=== PATIENT | male | born 1960 | race Caucasian/White ===

== ENCOUNTER 2024-08-14 17:53 | Inpatient (IN) ==
[2024-08-14 19:00] LABS: Base Excess VBG -7.3 mEq/L; HCO3 VBG 17 mmol/L; Oxygen Saturation VBG 71.8 %; PCO2 VBG 31 mmHg (38-50); PO2 VBG 39 mmHg; pH VBG 7.35 (7.36-7.41)
[2024-08-14 19:07] LABS: Basophils # (auto) 0.07 K/uL (0.00-0.20); Basophils % (auto) 0.6 %; Eosinophils # (auto) 0.35 K/uL (0.00-0.50); Eosinophils % (auto) 3.2 %; Hemoglobin 9.1 g/dl (14.0-18.0); Immature Granulocytes # (auto) 0.13 K/uL (0.01-0.20); Immature Granulocytes % (auto) 1.2 %; Lymphocytes # (auto) 2.85 K/uL (1.20-3.40); Lymphocytes % (auto) 26.5 %; Mean Corpuscular Hemoglobin 29.3 pg (25.0-34.0); Mean Corpuscular Hgb Conc 32.5 g/dL (32.0-36.0); Mean Platelet Volume 9.7 fL (9.4-12.4); Monocytes % (auto) 3.7 %; Neutrophils # (auto) 6.97 K/uL (1.40-6.50); Neutrophils % (auto) 64.8 %; Platelet Count 481 K/uL (130-400); RDW Coefficient of Variation 15.2 % (11.5-14.5); RDW Standard Deviation 49.6 fL (36.4-46.3); Red Blood Count 3.11 M/uL (4.70-6.10); White Blood Count 10.77 K/ul (4.8-10.8)
--- NOTE | 2024-08-14 19:08 | XRay Report ---
Chest radiograph, one view History: Chest pain Comparison: None Findings: Single AP view of the chest performed. No focal consolidation or pleural effusion. No pneumothorax. Right upper extremity PICC tip is at the superior atrial caval junction. Elevated right hemidiaphragm. The cardiomediastinal silhouette is within normal limits. Normal pulmonary vascularity. No evidence for lymphadenopathy. No visualized bony or soft tissue abnormality. Impression: Right upper extremity PICC as above. Otherwise no acute process. Electronically signed by Quintin Kapadia 08-14-2024 7:07 PM
[2024-08-14 19:09] LABS: INR 1.6 (0.9-1.1); Prothrombin Time 16.7 Seconds (9.0-12.0)
[2024-08-14 19:13] LABS: Albumin Globulin Ratio 0.6 (0.9-2); Albumin Level 2.2 gm/dl (3.4-5.0); BUN Creatinine Ratio 5.8 (10-20); Bilirubin,Total 2.1 mg/dl (0.2-1.0); Creatinine Clr Calc Pharmacy 19.5 ml/min; Globulin 3.7 gm/dl (2.5-4.0); Potassium 4.3 mmol/L (3.5-5.1); Total Protein 5.9 gm/dl (6.0-8.3)
[2024-08-14 19:46] LABS: Adenovirus PCR Not Detected (NotDetected); Bordetella parapertussis PCR Not Detected (NotDetected); Bordetella pertussis PCR Not Detected (NotDetected); Chlamydia pneumoniae PCR Not Detected (NotDetected); Coronavirus 229E PCR Not Detected (NotDetected); Coronavirus CoV-2 (COVID19)PCR Not Detected (NotDetected); Coronavirus HKU1 PCR Not Detected (NotDetected); Coronavirus NL63 PCR Not Detected (NotDetected); Coronavirus OC43PCR Not Detected (NotDetected); Human Metapneumovirus PCR Not Detected (NotDetected); Influenza A PCR Not Detected (NotDetected); Influenza B PCR Not Detected (NotDetected); Mycoplasma pneumoniae PCR Not Detected (NotDetected); Parainfluenza Virus 1 PCR Not Detected (NotDetected); Parainfluenza Virus 2 PCR Not Detected (NotDetected); Parainfluenza Virus 3 PCR Not Detected (NotDetected); Parainfluenza Virus 4 PCR Not Detected (NotDetected); Respiratory Syncytial VirusPCR Not Detected (NotDetected); Rhinovirus/Enterovirus PCR Not Detected (NotDetected)
[2024-08-14] MEDS: ACETAMINOPHEN 1,000 MG/100 ML VIAL IV STA (20:26)
[2024-08-14] MEDS: SODIUM CHLORIDE 0.9% 1,000 ML IV ONE ×2 (20:26→21:44)
[2024-08-14] MEDS: SODIUM CHLORIDE 0.9% 500 ML IV ONE (20:31)
--- NOTE | 2024-08-14 20:32 | Emergency Department Note ---
Impression & Plan Fever, JUANA (acute kidney injury), Cellulitis of right lower extremity, Diabetic foot ulcer ED Provider Note CHIEF COMPLAINT: Fever, on IV antibiotics HISTORY OF PRESENT ILLNESS: This 63-year-old male patient past medical history of hypertension, hyperlipidemia, cellulitis of the right foot on IV vancomycin at the long-term, diabetic ulceration status post amputation, type 2 diabetes presents to the emergency department from the [facility] with complaints of fever and altered mental status. Patient was recently admitted to the [facility] and diagnosed with cellulitis. He apparently was also treated for flu at that time. Wound culture revealed MSSA however patient had a reaction to IV Ancef in the hospital and was switched to IV vancomycin. There is no reported fall however much of the history is taken from nursing report through EMS. REVIEW OF SYSTEMS: A review of systems was performed with positives and pertinent negatives listed in the history of present illness. 10 systems were reviewed and are otherwise negative. ALLERGIES: see below MEDICATIONS: see below PMH: see below SOCIAL HISTORY: see below DDx: Sepsis, COVID, flu, UTI, cellulitis, osteomyelitis, metabolic derangement, pneumonia among others. PHYSICAL EXAM: Vital signs reviewed. hypotensive General: chronically ill-appearing 63-year-old male, in no significant distress. HEENT: No scleral icterus, PERRLA, neck supple. moist mucous membranes Cardiovascular: tachycardic but regular Pulmonary: Clear to auscultation bilaterally, normal work of breathing. Abdomen: Soft, nontender, nondistended, positive bowel sounds. Musculoskeletal: Atraumatic, no peripheral edema. Neurologic: Patient awake alert and oriented x 3, speech is clear Skin: Warm, dry, no rash . Small ulcerated area to the bottom of the right foot with minimal drainage, dressing was removed. EMERGENCY DEPARTMENT COURSE/MDM: this patient was evaluated and appeared to be in no significant distress. IV access was obtained and laboratory work was drawn. The patient was placed on the shift production associate and noted to be in a normal sinus rhythm. He is also febrile on exam. Patient was given 1 g of IV acetaminophen, hydrated with normal saline solution. Laboratory work was obtained and reveals a creatinine of 4.45. Records from his recent admission to [facility] were obtained and revealed a normal creatinine of 1.0 on 08/09/24 and on 08/10/2024 at 1.6. outpatient laboratory work was performed yesterday and is in our system at 4.54. Blood cultures were obtained. Patient was hydrated with normal saline solution, total of 2.5 L. UA is largely reassuring as is a Sarmiento catheter to be placed. Respiratory BioFire panel is negative. Patient's lactate is 1.6, WBC is normal however procalcitonin is greater than 100 and ESR is 93. Additional coverage to the IV vancomycin is felt to be necessary, the pharmacist was consulted and we have landed on cefepime. Patient did have a reaction to IV Ancef with his most recent hospitalization. Nursing staff was advised to monitor for allergic reaction closely however IV Zosyn was felt to be the wrong choice due to his acute kidney injury. Osteomyelitis had been ruled out on his hospitalization to [facility] via MRI however certainly there is no obvious source of infection at this time. Dr. Kurtz of the hospitalist service has agreed to evaluate the patient for admission and further management. MONITORING: An order for cardiac monitoring was placed and the patient is noted to be in a normal sinus rhythm at 87 beats per minute. RADIOLOGY: chest x-ray to my interpretation reveals the right sided PICC line, no focal lung consolidation or failure. EKG: EKG to my interpretation reveals normal sinus rhythm at 80 bpm, normal ST segments, QTc of 442. No PVC, no PAC DISPOSITION: admission Past Med/Surg History Problem List (Updated 08/14/24 @ 21:39 by Jennifer Puentes MD) Diabetic foot ulcer (Acute) Cellulitis of right lower extremity (Acute) JUANA (acute kidney injury) (Acute) Fever (Acute) Social History Smoking Status: Unknown if ever smoked Preferred Language: [place] Allergies Allergies Allergy/AdvReac Type Severity Reaction Status Date / Time ancef Allergy Intermediate Rash Uncoded 08/14/24 20:14 Home Meds Home Medications Medication Instructions Recorded Confirmed Lactobacillus acidophilus 10 10,000 mmu cells PO DAILY 08/14/24 08/14/24 billion cell capsule (Probiotic) atenolol 100 mg tablet 100 mg PO DAILY 08/14/24 08/14/24 atorvastatin 20 mg tablet 20 mg PO DAILY 08/14/24 08/14/24 bisacodyl 10 mg rectal suppository 10 mg OR DAILY PRN Constipation 08/14/24 08/14/24 (Dulcolax (bisacodyl)) cyanocobalamin (vitamin B-12) 500 500 mcg PO DAILY 08/14/24 08/14/24 mcg tablet multivitamin with minerals 1 tab PO DAILY 08/14/24 08/14/24 ondansetron 4 mg disintegrating 4 mg PO Q8H PRN Nausea And Vomiting 08/14/24 08/14/24 tablet oxycodone 5 mg tablet 5 mg PO Q6H PRN Severe Pain (Scale 08/14/24 08/14/24 Score 7-10) Results & Data (ED) Vital Signs Vital Signs - 24 hr 08/14/24 18:09 08/14/24 18:11 08/14/24 19:15 Temperature 38.3 C H Temperature Source Oral Pulse Rate 89 87 87 Pulse Rate from SpO2 Sensor Respiratory Rate 20 24 Blood Pressure 100/67 97/65 L Blood Pressure Mean 78 75 Blood Pressure Position Lying Pulse Oximetry 94 93 Oxygen Delivery Method Room Air Sepsis Recent Fever Within 48 Hours Yes Sepsis New/Unexplained Change in Mental Status No Sepsis Action Taken by Nursing No Action Required 08/14/24 19:51 08/14/24 19:59 08/14/24 20:48 Temperature 38.8 C H Temperature Source Oral Pulse Rate 89 87 Pulse Rate from SpO2 Sensor 87 Respiratory Rate 25 H 22 Blood Pressure 122/67 98/68 L Blood Pressure Mean 85 78 Blood Pressure Position Pulse Oximetry 93 95 Oxygen Delivery Method Sepsis Recent Fever Within 48 Hours Sepsis New/Unexplained Change in Mental Status Sepsis Action Taken by Nursing 08/14/24 21:00 Temperature Temperature Source Pulse Rate 103 H Pulse Rate from SpO2 Sensor 104 H Respiratory Rate 19 Blood Pressure 98/50 L Blood Pressure Mean 66 Blood Pressure Position Pulse Oximetry 96 Oxygen Delivery Method Sepsis Recent Fever Within 48 Hours Sepsis New/Unexplained Change in Mental Status Sepsis Action Taken by [facility] Medications Current Medication List: was personally reviewed by me Laboratory Data Attestation: I reviewed the patient's lab results. 08/14/24 18:00 08/14/24 18:00 Lab Results 08/14/24 08/14/24 08/14/24 Range/Units 18:00 20:14 20:58 WBC 10.77 (4.8-10.8) K/ul RBC 3.11 L (4.70-6.10) M/uL Hgb 9.1 L (14.0-18.0) g/dl Hct 28.0 L (42.0-52.0) % MCV 90.0 (80.0-100.0) fL MCH 29.3 (25.0-34.0) pg MCHC 32.5 (32.0-36.0) g/dL RDW Std Deviation 49.6 H (36.4-46.3) fL RDW Coeff of Eladio 15.2 H (11.5-14.5) % Plt Count 481 H (130-400) K/uL MPV 9.7 (9.4-12.4) fL Immature Gran % (Auto) 1.2 % Neut % (Auto) 64.8 % Lymph % (Auto) 26.5 % Iron % (Auto) 3.7 % Eos % (Auto) 3.2 % Baso % (Auto) 0.6 % Neut # (Auto) 6.97 H (1.40-6.50) K/uL Lymph # (Auto) 2.85 (1.20-3.40) K/uL Iron # (Auto) 0.40 (0.11-0.59) K/uL Eos # (Auto) 0.35 (0.00-0.50) K/uL Baso # (Auto) 0.07 (0.00-0.20) K/uL Immature Gran # (Auto) 0.13 (0.01-0.20) K/uL ESR 93 H (0-20) mm/hr PT 16.7 H (9.0-12.0) Seconds INR 1.6 H (0.9-1.1) VBG pH 7.35 L (7.36-7.41) VBG pCO2 31 L (38-50) mmHg VBG pO2 39 mmHg VBG HCO3 17 mmol/L VBG O2 Saturation 71.8 % VBG Base Excess -7.3 mEq/L Sodium 130 L (136-145) mmol/L Potassium 4.3 (3.5-5.1) mmol/L Chloride 103 (98-107) mmol/L Carbon Dioxide 24 (21-32) mmol/L Anion Gap 3 (3-11) BUN 26 H (6-23) mg/dl Creatinine 4.45 H (0.6-1.4) mg/dl Est Cr Clr Drug Dosing 19.5 ml/min eGFR 13.92 BUN/Creatinine Ratio 5.8 L (10-20) Glucose 66 L (70-99(Fasting)) mg/dl Lactate 1.6 2.0 (0.4-2.0) mmol/L Calcium 8.0 L (8.6-10.3) mg/dl Total Bilirubin 2.1 H (0.2-1.0) mg/dl AST 120 H (13-39) U/L ALT 96 H (7-52) U/L Alkaline Phosphatase 222 H (34-104) U/L Troponin I High Sens 23.0 H (0-20) pg/ml Total Protein 5.9 L (6.0-8.3) gm/dl Albumin 2.2 L (3.4-5.0) gm/dl Globulin 3.7 (2.5-4.0) gm/dl Albumin/Globulin Ratio 0.6 L (0.9-2) Lipase 63 (11-82) U/L Procalcitonin > 100.00 H (0-0.5) ng/ml Urine Color Dark Yellow Urine Appearance Cloudy A (Clear) Urine pH 5.0 (4.5-7.5) Ur Specific [place] 1.018 (1.000-1.030) Urine Protein 1+ H (Negative) Urine Glucose (UA) Negative (Negative) Urine Ketones Trace H (Negative) Urine Blood 1+ H (Negative) Urine Nitrite Negative (Negative) Urine Bilirubin 1+ H (Negative) Urine Urobilinogen Negative (Negative) Ur Leukocyte Esterase Negative (Negative) Adenovirus (PCR) Not Detected (NotDetected) B. pertussis DNA (PCR) Not Detected (NotDetected) B.parapertussis DNA PCR Not Detected (NotDetected) C. pneumoniae DNA (PCR) Not Detected (NotDetected) Coronavirus OC43 (PCR) Not Detected (NotDetected) Coronavirus HKU1 (PCR) Not Detected (NotDetected) Coronavirus 229E (PCR) Not Detected (NotDetected) SARS-CoV-2 (PCR) Not Detected (NotDetected) Coronavirus NL63 (PCR) Not Detected (NotDetected) Human Metapneumovir PCR Not Detected (NotDetected) Influenza Type A (PCR) Not Detected (NotDetected) Influenza Type B (PCR) Not Detected (NotDetected) M. pneumoniae (PCR) Not Detected (NotDetected) Parainfluenza 1 (PCR) Not Detected (NotDetected) Parainfluenza 2 (PCR) Not Detected (NotDetected) Parainfluenza 3 (PCR) Not Detected (NotDetected) Parainfluenza 4 (PCR) Not Detected (NotDetected) RSV (PCR) Not Detected (NotDetected) Entero/Rhino (PCR) Not Detected (NotDetected) Administered Medications Discontinued Medications Sodium Chloride (Nss) 1,000 mls @ 999 mls/hr IV .Q1H1M ONE Stop: 08/14/24 21:02 Last Admin: 08/14/24 20:26 Dose: 999 mls/hr Documented By: KANU Acetaminophen (Ofirmev) 1,000 mg in 100 mls @ 400 mls/hr IV NOW STA Stop: 08/14/24 20:16 Last Infusion: 08/14/24 20:48 Dose: Infused Documented By: Admin: 08/14/24 20:26 Dose: 400 mls/hr Documented By: KANU Sodium Chloride (Nss) 500 mls @ 999 mls/hr IV .Q31M ONE Stop: 08/14/24 20:41 Last Admin: 08/14/24 20:31 Dose: 999 mls/hr Documented By: KANU Cefepime HCl (Maxipime 2000mg) 2,000 mg in 20 mls @ 5 mls/min IV NOW STA; Protocol Stop: 08/14/24 20:21 Last Admin: 08/14/24 20:50 Dose: 5 mls/min Documented By: KANU Imaging Data Radiologist's Impression: Chest X-Ray 08/14/24 18:34 Chest radiograph, one view History: Chest pain Comparison: None Findings: Single AP view of the chest performed. No focal consolidation or pleural effusion. No pneumothorax. Right upper extremity PICC tip is at the superior atrial caval junction. Elevated right hemidiaphragm. The cardiomediastinal silhouette is within normal limits. Normal pulmonary vascularity. No evidence for lymphadenopathy. No visualized bony or soft tissue abnormality. Impression: Right upper extremity PICC as above. Otherwise no acute process. Electronically signed by Quintin Kapadia 08-14-2024 7:07 PM Discharge Plan Visit Data Chief Complaint: Lethargic ED Provider: Jennifer Puentes Discharge Problem: Fever, JUANA (acute kidney injury), Cellulitis of right lower extremity, Diabetic foot ulcer Forms Stand Alone Forms: My [facility] Prescriptions Prescriptions: No Action atorvastatin 20 mg tablet 20 mg PO DAILY atenolol 100 mg tablet 100 mg PO DAILY cyanocobalamin (vitamin B-12) 500 mcg Tablet 500 mcg PO DAILY bisacodyl [Dulcolax (bisacodyl)] 10 mg Suppository 10 mg OR DAILY PRN (Reason: Constipation) multivitamin with minerals Tablet 1 tab PO DAILY ondansetron 4 mg Tablet,Disintegrating 4 mg PO Q8H PRN (Reason: Nausea And Vomiting) oxycodone 5 mg Tablet 5 mg PO Q6H PRN (Reason: Severe Pain (Scale Score 7-10)) Probiotic 10 billion cell Capsule 10,000 mmu cells PO DAILY Referrals Referrals: Liu Benson [Primary Care Provider] -
[2024-08-14] MEDS: CEFEPIME 2000MG 2,000 MG/20 ML SYR IV STA (20:50)
[2024-08-14 21:19] LABS: Appearance Urine Cloudy (Clear); Bilirubin Urine 1+ (Negative); Blood Urine 1+ (Negative); Color Urine Dark Yellow; Epithelial Cell Urine Auto 0-2 /hpf (0-2); Glucose Urine UA Negative (Negative); Ketones Urine Trace (Negative); Leukocyte Esterase Urine Negative (Negative); Nitrite Urine Negative (Negative); Protein Urine 1+ (Negative); Specific Gravity Urine 1.018 (1.000-1.030); Urobilinogen Urine Negative (Negative); WBC Urine Automated 0-5 /hpf (0-5)
[2024-08-14 21:32] LABS: Amorphous Sediment Urine Present (None Prsent)
[2024-08-14 21:33] LABS: Bacteria Urine Automated 2+ (None Seen)
--- NOTE | 2024-08-14 22:17 | History & Physical Report ---
Date of Service August 14, 2024 Assessment & Plan (1) Sepsis: Plan: 63-year-old male with past medical history significant for type 2 diabetes, diabetic ulcer of right midfoot, dyslipidemia, hypophosphatemia, hypertension, history of C. difficile colitis, oral thrush, cellulitis of right leg, abscess of right foot, absent seizures, history of lung cancer, was sent in by [facility] rehab because of confusion and fevers. Patient was in [facility] from 08/02/2024 to 08/11/2024. He was admitted to the [facility] for right foot swelling and rednesss and fevers. And right foot x-ray showed healed fracture through the midshaft of second metatarsal bone with calcified bridging callus. Pes planus. He was admitted for right foot infection. MRI of the foot was negative for osteomyelitis and showed cellulitis and possible abscess. Status post I&D by podiatry at bedside on August 03 with a deep purulence obtained and sent for culture. Status post I&D with podiatry for sepsis on August 06 and probe to bone very favorable and no clear abscess as suggested by CT scan. During hospital stay he was also completed Tamiflu for influenza. ID suggested Ancef until September 17 and to treat as osteomyelitis for MSSA on wound cultures with 6 weeks of IV antibiotics. On August 07 patient had rash thought to be from Ancef. Rash was worsening after second dose of Ancef and patient was having fevers that thought to be lined up from Ancef doses and was thought possible drug fever. And ID recommended IV Vanco via PICC line. Vancomycin dosing goal AUC 400-600 Mg/liter/hour. And patient was discharged to [facility] on 08/11/2024. At [facility] patient was still having fevers and shortness of breath and erythema around his wound ,does not appear to be receding thought to be spreading. [facility] made ID aware. As per the med rec from the [facility] seems patient had Rocephin. And was sent to our ER today because of fever and altered mental status. Patient can tell his name. Knows that he is in the hospital. Could tell his date of . But could not tell current dates. Denies any cough. Denies headache. Denies chest pain. Denies shortness of breath. Denies belly pain. Status post Sarmiento in the ER. Patient seems poor historian at this time. No sacral ulcer seen. Sepsis Bilateral lower extremity cellulitis Right foot diabetic ulcer Recently on [facility] was placed on IV Vanco for 6 weeks until September 17 to treat his osteomyelitis though MRI was negative And abscess was I&D by podiatry at [facility] Will hold IV Vanco as random vanco level 36 and follow levels. Pharmacy consult ER placed on IV cefepime whic hwill be continued with renal dosing ID consult Close monitor JUANA Presented with creatinine of 4.4 Creatinine was 1.6 on 08/12/2024 Prior to that creatinine was normal Will get CT abdomen pelvis Status post Sarmiento in ER Gentle fluids Hold nephrotoxic agents Nephrology consult in a.m Close monitor Confusion Mostly metabolic encephalopathy from above Will get CT head Will monitor Anemia Hemoglobin 9.1 Hemoglobin 's at [facility] Will follow stool for Hemoccult, iron studies , vitamin b12 and folate levels Hypertension Will hold atenolol and lisinopril for sepsis Close monitor Diabetes Hold home medications Sliding scale Monitor Hyperlipidemia On statin History of seizures On Lamictal elevated lft follow ct abd/pelvis seems elevated at [facility] also. Remote history of lung cancer Treated with chemo as per records DVT prophylaxis Heparin subcu Disposition Telemetry Full code. History of Present Illness Chief Complaint: Confusion, JUANA, sepsis Primary Care Provider: Liu Marcelino 63-year-old male with past medical history significant for type 2 diabetes, diabetic ulcer of right midfoot, dyslipidemia, hypophosphatemia, hypertension, history of C. difficile colitis, oral thrush, cellulitis of right leg, abscess of right foot, absent seizures, history of lung cancer, was sent in by [facility] rehab because of confusion and fevers. Patient was in [facility] from 08/02/2024 to 08/11/2024. He was admitted to the [facility] for right foot swelling and rednesss and fevers. And right foot x-ray showed healed fracture through the midshaft of second metatarsal bone with calcified bridging callus. Pes planus. He was admitted for right foot infection. MRI of the foot was negative for osteomyelitis and showed cellulitis and possible abscess. Status post I&D by podiatry at bedside on August 03 with a deep purulence obtained and sent for culture. Status post I&D with podiatry for sepsis on August 06 and probe to bone very favorable and no clear abscess as suggested by CT scan. During hospital stay he was also completed Tamiflu for influenza. ID suggested Ancef until September 17 and to treat as osteomyelitis for MSSA on wound cultures with 6 weeks of IV antibiotics. On August 07 patient had rash thought to be from Ancef. Rash was worsening after second dose of Ancef and patient was having fevers that thought to be lined up from Ancef doses and was thought possible drug fever. And ID recommended IV Vanco via PICC line. Vancomycin dosing goal AUC 400-600 Mg/liter/hour. And patient was discharged to [facility] on 08/11/2024. At [facility] patient was still having fevers and shortness of breath and erythema around his wound ,does not appear to be receding thought to be spreading. [facility] made ID aware. As per the med rec from the [facility] seems patient had Rocephin. And was sent to our ER today because of fever and altered mental status. Patient can tell his name. Knows that he is in the hospital. Could tell his date of . But could not tell current dates. Denies any cough. Denies headache. Denies chest pain. Denies shortness of breath. Denies belly pain. Status post Sarmiento in the ER. Patient seems poor historian at this time. No sacral ulcer seen. Past medical history. As mentioned above. Past surgical history. Left total knee arthroplasty. Left carpal tunnel surgery. Flexible sigmoidoscopy. Cervical spine fusion surgery. Right toe partial amputation. Tonsillectomy. Repair of inguinal hernia. Social history. No smoking. Alcohol rarely. No drug use. Family history. Mother had arthritis. Diabetes. High cholesterol. Cardiac stent. Father had kidney cancer. High cholesterol. Brother has hypertension. Uncle had stomach cancer. Paternal grandfather had bone cancer. Allergies Allergy/AdvReac Type Severity Reaction Status Date / Time cefazolin Allergy Intermediate Rash Verified 08/14/24 23:14 Home Medications Medication Instructions Recorded Confirmed Type Lactobacillus acidophilus 10 10,000 mmu cells PO DAILY 08/14/24 08/14/24 History billion cell capsule (Probiotic) aspirin 81 mg tablet,delayed 81 mg PO DAILY 08/14/24 08/14/24 History release atenolol 100 mg tablet 100 mg PO DAILY 08/14/24 08/14/24 History atorvastatin 20 mg tablet 20 mg PO DAILY 08/14/24 08/14/24 History bisacodyl 10 mg rectal suppository 10 mg CO DAILY PRN Constipation 08/14/24 08/14/24 History (Dulcolax (bisacodyl)) ceftriaxone 1 gram intravenous 1 g IV DAILY 08/14/24 08/14/24 History solution cyanocobalamin (vitamin B-12) 500 500 mcg PO DAILY 08/14/24 08/14/24 History mcg tablet empagliflozin 25 mg tablet 25 mg PO DAILY 08/14/24 08/14/24 History gabapentin 300 mg capsule 600 mg PO HS 08/14/24 08/14/24 History hydroxyzine HCl 10 mg tablet 10 mg PO HS PRN Anxiety 08/14/24 08/14/24 History lamotrigine 100 mg tablet 100 mg PO BID 08/14/24 08/14/24 History (Lamictal) lisinopril 20 mg tablet 20 mg PO DAILY 08/14/24 08/14/24 History metformin 500 mg tablet 500 mg PO BID 08/14/24 08/14/24 History multivitamin with minerals 1 tab PO DAILY 08/14/24 08/14/24 History ondansetron 4 mg disintegrating 4 mg PO Q8H PRN Nausea And Vomiting 08/14/24 08/14/24 History tablet oxycodone 5 mg tablet 5 mg PO Q6H PRN Severe Pain (Scale 08/14/24 08/14/24 History Score 7-10) vancomycin 1,000 mg intravenous 1 g IV UD 08/14/24 08/14/24 History injection Past Med/Surg History Problem List (Updated 08/14/24 @ 22:10 by Pineda Kurtz MD) Sepsis Diabetic foot ulcer (Acute) Cellulitis of right lower extremity (Acute) JUANA (acute kidney injury) (Acute) Fever (Acute) Social History Smoking Status: Never smoker Hx Alcohol Use: No Hx Substance Use: No Preferred Language: Albanian Communication Ability: Effective Galley Cook Required: No Beliefs That Will Affect Care: None Current Living Situation: Personal Care Facility Current Living Situation Comment: Lives at [facility] currently Other Information That Helps Us Care for You: No Feels Safe at Home: Yes Safety Concerns: Feels Safe At This Time Assistive Devices: Denture - Upper and Glasses Review of Systems Review of Systems: Unobtainable due to reduced consciousness Physical Exam Physical Exam: General- Confused Head- atraumatic Eyes- PERRL. ENT- oropharynx dry Neck- supple, no JVD. Lungs- clear to auscultation no wheezing or crackles. Heart- regular rate and rhythm; no murmur, no gallop. Abdomen- normal bowel sounds, soft, nontender, no distension Extremities- b/l lower extremity erythema seen from foot to garcia region more on left side. Open callus seen on plantar aspect of right foot Neuro- alert, oriented x 2; Confused.PERRL, no facial palsy; no dysarthria; obeys simple commands Results & Data Results & Data Vital Signs (Past 12 Hours) Vital Signs Temp Pulse Resp BP Pulse Ox O2 Del Method 08/14/24 21:42 37.2 C 08/14/24 21:00 103 H 19 98/50 L 96 08/14/24 20:48 87 22 98/68 L 95 08/14/24 19:59 38.8 C H 08/14/24 19:51 89 25 H 122/67 93 08/14/24 19:15 87 24 97/65 L 93 08/14/24 18:11 38.3 C H 87 20 100/67 94 Room Air 08/14/24 18:09 89 Diagnostic Findings Laboratory Results WBC 10.77 K/ul (4.8-10.8) 08/14/24 18:00 RBC 3.11 M/uL (4.70-6.10) L 08/14/24 18:00 Hgb 9.1 g/dl (14.0-18.0) L 08/14/24 18:00 Hct 28.0 % (42.0-52.0) L 08/14/24 18:00 MCV 90.0 fL (80.0-100.0) 08/14/24 18:00 MCH 29.3 pg (25.0-34.0) 08/14/24 18:00 MCHC 32.5 g/dL (32.0-36.0) 08/14/24 18:00 RDW Std Deviation 49.6 fL (36.4-46.3) H 08/14/24 18:00 RDW Coeff of Eladio 15.2 % (11.5-14.5) H 08/14/24 18:00 Plt Count 481 K/uL (130-400) H 08/14/24 18:00 MPV 9.7 fL (9.4-12.4) 08/14/24 18:00 Immature Gran % (Auto) 1.2 % 08/14/24 18:00 Neut % (Auto) 64.8 % 08/14/24 18:00 Lymph % (Auto) 26.5 % 08/14/24 18:00 Bartholomew % (Auto) 3.7 % 08/14/24 18:00 Eos % (Auto) 3.2 % 08/14/24 18:00 Baso % (Auto) 0.6 % 08/14/24 18:00 Neut # (Auto) 6.97 K/uL (1.40-6.50) H 08/14/24 18:00 Lymph # (Auto) 2.85 K/uL (1.20-3.40) 08/14/24 18:00 Bartholomew # (Auto) 0.40 K/uL (0.11-0.59) 08/14/24 18:00 Eos # (Auto) 0.35 K/uL (0.00-0.50) 08/14/24 18:00 Baso # (Auto) 0.07 K/uL (0.00-0.20) 08/14/24 18:00 Immature Gran # (Auto) 0.13 K/uL (0.01-0.20) 08/14/24 18:00 ESR 93 mm/hr (0-20) H 08/14/24 18:00 PT 16.7 Seconds (9.0-12.0) H 08/14/24 18:00 INR 1.6 (0.9-1.1) H 08/14/24 18:00 VBG pH 7.35 (7.36-7.41) L 08/14/24 18:00 VBG pCO2 31 mmHg (38-50) L 08/14/24 18:00 VBG pO2 39 mmHg 08/14/24 18:00 VBG HCO3 17 mmol/L 08/14/24 18:00 VBG O2 Saturation 71.8 % 08/14/24 18:00 VBG Base Excess -7.3 mEq/L 08/14/24 18:00 Sodium 130 mmol/L (136-145) L 08/14/24 18:00 Potassium 4.3 mmol/L (3.5-5.1) 08/14/24 18:00 Chloride 103 mmol/L (98-107) 08/14/24 18:00 Carbon Dioxide 24 mmol/L (21-32) 08/14/24 18:00 Anion Gap 3 (3-11) 08/14/24 18:00 BUN 26 mg/dl (6-23) H 08/14/24 18:00 Creatinine 4.45 mg/dl (0.6-1.4) H 08/14/24 18:00 Est Cr Clr Drug Dosing 19.5 ml/min 08/14/24 18:00 eGFR 13.92 08/14/24 18:00 BUN/Creatinine Ratio 5.8 (10-20) L 08/14/24 18:00 Glucose 66 mg/dl (70-99(Fasting)) L 08/14/24 18:00 Lactate 2.0 mmol/L (0.4-2.0) 08/14/24 20:14 Calcium 8.0 mg/dl (8.6-10.3) L 08/14/24 18:00 Total Bilirubin 2.1 mg/dl (0.2-1.0) H 08/14/24 18:00 AST 120 U/L (13-39) H 08/14/24 18:00 ALT 96 U/L (7-52) H 08/14/24 18:00 Alkaline Phosphatase 222 U/L (34-104) H 08/14/24 18:00 Troponin I High Sens 20.9 pg/ml (0-20) H 08/14/24 20:58 Total Protein 5.9 gm/dl (6.0-8.3) L 08/14/24 18:00 Albumin 2.2 gm/dl (3.4-5.0) L 08/14/24 18:00 Globulin 3.7 gm/dl (2.5-4.0) 08/14/24 18:00 Albumin/Globulin Ratio 0.6 (0.9-2) L 08/14/24 18:00 Lipase 63 U/L (11-82) 08/14/24 18:00 Procalcitonin > 100.00 ng/ml (0-0.5) H 08/14/24 18:00 Urine Color Dark Yellow 08/14/24 20:58 Urine Appearance Cloudy (Clear) A 08/14/24 20:58 Urine pH 5.0 (4.5-7.5) 08/14/24 20:58 Ur Specific Dorothy 1.018 (1.000-1.030) 08/14/24 20:58 Urine Protein 1+ (Negative) H 08/14/24 20:58 Urine Glucose (UA) Negative (Negative) 08/14/24:58 Urine Ketones Trace (Negative) H 08/14/24 20:58 Urine Blood 1+ (Negative) H 08/14/24 20:58 Urine Nitrite Negative (Negative) 08/14/24:58 Urine Bilirubin 1+ (Negative) H 08/14/24 20:58 Urine Urobilinogen Negative (Negative) 08/14/24:58 Ur Leukocyte Esterase Negative (Negative) 08/14/24 20:58 Urine WBC (Auto) 0-5 /hpf (0-5) 08/14/24 20:58 Urine RBC (Auto) 6-10 /hpf (0-2) H 08/14/24 20:58 U Hyaline Cast (Auto) 3-5 /lpf (0-2) H 08/14/24 20:58 U Epithel Cells (Auto) 0-2 /hpf (0-2) 08/14/24 20:58 Urine Bacteria (Auto) 2+ (None Seen) H 08/14/24 20:58 Amorphous Sediment Present (None Prsent) A 08/14/24 20:58 Urine Yeast Present (None Prsent) A 08/14/24 20:58 Adenovirus (PCR) Not Detected (NotDetected) 08/14/24 18:00 B. pertussis DNA (PCR) Not Detected (NotDetected) 08/14/24 18:00 B.parapertussis DNA PCR Not Detected (NotDetected) 08/14/24 18:00 C. pneumoniae DNA (PCR) Not Detected (NotDetected) 08/14/24 18:00 Coronavirus OC43 (PCR) Not Detected (NotDetected) 08/14/24 18:00 Coronavirus HKU1 (PCR) Not Detected (NotDetected) 08/14/24 18:00 Coronavirus 229E (PCR) Not Detected (NotDetected) 08/14/24 18:00 SARS-CoV-2 (PCR) Not Detected (NotDetected) 08/14/24 18:00 Coronavirus NL63 (PCR) Not Detected (NotDetected) 08/14/24 18:00 Human Metapneumovir PCR Not Detected (NotDetected) 08/14/24 18:00 Influenza Type A (PCR) Not Detected (NotDetected) 08/14/24 18:00 Influenza Type B (PCR) Not Detected (NotDetected) 08/14/24 18:00 M. pneumoniae (PCR) Not Detected (NotDetected) 08/14/24 18:00 Parainfluenza 1 (PCR) Not Detected (NotDetected) 08/14/24 18:00 Parainfluenza 2 (PCR) Not Detected (NotDetected) 08/14/24 18:00 Parainfluenza 3 (PCR) Not Detected (NotDetected) 08/14/24 18:00 Parainfluenza 4 (PCR) Not Detected (NotDetected) 08/14/24 18:00 RSV (PCR) Not Detected (NotDetected) 08/14/24 18:00 Entero/Rhino (PCR) Not Detected (NotDetected) 08/14/24 18:00 Impressions Chest X-Ray 08/14/24 18:34 Chest radiograph, one view History: Chest pain Comparison: None Findings: Single AP view of the chest performed. No focal consolidation or pleural effusion. No pneumothorax. Right upper extremity PICC tip is at the superior atrial caval junction. Elevated right hemidiaphragm. The cardiomediastinal silhouette is within normal limits. Normal pulmonary vascularity. No evidence for lymphadenopathy. No visualized bony or soft tissue abnormality. Impression: Right upper extremity PICC as above. Otherwise no acute process. Electronically signed by Quintin Kapadia 08-14-2024 7:07 PM ECG Additional Comments: ECG. Normal sinus rhythm rate of 88. No acute ST changes seen. QTc 442 Code Status & VTE Plan VTE Prophylaxis Plan VTE Prophylaxis will be ordered: Yes
[2024-08-14] MEDS ORDERED: CARBOHYDRATES FOR HYPOGLYCEMIA PO PRN (23:10)
[2024-08-14] MEDS ORDERED: GLUCAGON FOR INJ 1 MG VIAL SQ PRN (23:10)
[2024-08-14] MEDS ORDERED: GLUCOSE 10 TAB/TUBE PO PRN (23:10)
[2024-08-14] MEDS ORDERED: VANCOMYCIN CONSULT ACTIVE PRN (23:10)
[2024-08-14] MEDS ORDERED: bisacodyL 10 MG SUPP PR PRN (23:10)
[2024-08-14] MEDS ORDERED: VANCOMYCIN HCL 1,000 MG/270 ML BAG IV SCH (23:10)
[2024-08-14] MEDS ORDERED: NITROGLYCERIN SL 0.4 MG/TAB TAB SL PRN (23:10)
[2024-08-14] MEDS ORDERED: GLUCOSE 40% GEL 15 GM TUBE PO PRN (23:10)
[2024-08-14] MEDS: HEPARIN SOD 5,000 UNIT/0.5 ML VIAL SQ SCH (23:24)
[2024-08-14] MEDS: SODIUM CHLORIDE 0.9% 1,000 ML IV SCH (23:26)
[2024-08-15] MEDS: ONDANSETRON INJ 2 MG/ML 2 ML VIAL IV STA (00:13)
--- NOTE | 2024-08-15 00:24 | CT Scan Report ---
Exam(s): CT HEAD Without Contrast EXAM: CT Head Without Intravenous Contrast CLINICAL HISTORY: Reason for exam: AMS. TECHNIQUE: Axial computed tomography images of the head/brain without intravenous contrast. CTDI is 53.87 mGy and DLP is 938.3 mGy-cm. Automated exposure control was utilized for the study. A dose lowering technique was utilized adhering to the principles of ALARA. COMPARISON: No relevant prior studies available. FINDINGS: Artifacts: Some motion artifact. Brain: Mild volume loss with prominent ventricles and sulci. No hemorrhage. No significant white matter disease. Ventricles: See above. Bones/joints: Unremarkable. No acute fracture. Soft tissues: Unremarkable. Sinuses: Unremarkable as visualized. No acute sinusitis. Mastoid air cells: Unremarkable as visualized. No mastoid effusion. IMPRESSION: No acute findings in the head/brain. Electronically signed by: Debbie Benavides M.D. 08/15/24 00:23 AM
[2024-08-15 01:01] LABS: C Reactive Protein 17.19 mg/dl (0-0.5)
--- NOTE | 2024-08-15 01:08 | CT Scan Report ---
Exam(s): CT ABDOMEN + PELVIS Without Contrast EXAM: CT Abdomen and Pelvis Without Intravenous Contrast CLINICAL HISTORY: Reason for exam: jesus. TECHNIQUE: Axial computed tomography images of the abdomen and pelvis without intravenous contrast. CTDI is 37.61 mGy and DLP is 1457.61 mGy-cm. Automated exposure control was utilized for the study. A dose lowering technique was utilized adhering to the principles of ALARA. COMPARISON: No relevant prior studies available. FINDINGS: Lung bases: Right lower lobe atelectasis or consolidation. Mild left basilar atelectasis. Trace right pleural effusion. Mediastinum: Small hiatal hernia. ABDOMEN: Liver: Marked hypoattenuation of the liver. Hepatomegaly, 25 cm craniocaudal. Gallbladder and bile ducts: Distended gallbladder. No obvious wall thickening or calcified stones. No ductal dilation. Pancreas: Unremarkable. No ductal dilation. Spleen: Unremarkable. No splenomegaly. Adrenals: Unremarkable. No mass. Kidneys and ureters: Mild nonspecific perinephric stranding. No hydronephrosis. Simple 2 cm left renal cyst. No follow-up of this simple cyst is necessary. Stomach and bowel: Fluid level in the rectum. Mild sigmoid diverticulosis. No obstruction. No mucosal thickening. PELVIS: Appendix: No findings to suggest acute appendicitis. Bladder: Sarmiento catheter in decompressed urinary bladder. No stones. Reproductive: Unremarkable as visualized. ABDOMEN and PELVIS: Intraperitoneal space: Minimal free fluid around the liver and in the pelvis. No free air. Bones/joints: Degenerative changes of the spine. No acute fracture. No dislocation. Soft tissues: Small bilateral inguinal hernias containing fat. Mild body wall edema, mostly in the right flank region. Vasculature: Unremarkable. No abdominal aortic aneurysm. Lymph nodes: Unremarkable. No enlarged lymph nodes. IMPRESSION: 1. Right lower lobe atelectasis or consolidation. Mild left basilar atelectasis. Trace right pleural effusion. 2. Hepatic steatosis. Hepatomegaly. 3. Minimal free fluid around the liver and in the pelvis. 4. Fluid level in the rectum. May reflect diarrhea. 5. Mild sigmoid diverticulosis. Electronically signed by: Debbie Benavides M.D. 08/15/24 01:07 AM
[2024-08-15 06:41] LABS: Hematocrit (blood only) 26.2 % (42.0-52.0); Hemoglobin 8.6 g/dl (14.0-18.0); Mean Corpuscular Hgb Conc 32.8 g/dL (32.0-36.0); Mean Corpuscular Volume 91.3 fL (80.0-100.0); Mean Platelet Volume 9.6 fL (9.4-12.4); Platelet Count 455 K/uL (130-400); RDW Coefficient of Variation 15.1 % (11.5-14.5); RDW Standard Deviation 50.4 fL (36.4-46.3); Red Blood Count 2.87 M/uL (4.70-6.10); White Blood Count 9.78 K/ul (4.8-10.8)
[2024-08-15 06:44] LABS: Anion Gap 0 (3-11); BUN Creatinine Ratio 6.2 (10-20); Blood Urea Nitrogen 26 mg/dl (6-23); Calcium 7.6 mg/dl (8.6-10.3); Carbon Dioxide 25 mmol/L (21-32); Chloride 108 mmol/L (98-107); Creatinine Clr Calc Pharmacy 20.1 ml/min; Glucose 63 mg/dl (70-99(Fasting)); Potassium 4.1 mmol/L (3.5-5.1); Sodium 133 mmol/L (136-145)
[2024-08-15 06:50] LABS: Alanine Aminotransferase 85 U/L (7-52); Albumin Level 1.9 gm/dl (3.4-5.0); Alkaline Phosphatase 206 U/L (34-104); Aspartate Aminotransferase 103 U/L (13-39); Bilirubin Direct 1.4 mg/dl (0-0.2); Iron 24 mcg/dl (35-175); Magnesium 1.9 mg/dl (1.7-2.4); Phosphorus 4.7 mg/dl (2.5-4.9); Total Protein 5.4 gm/dl (6.0-8.3); Transferrin < 95 mg/dl (200-360)
[2024-08-15 07:18] LABS: Basophils # (auto) 0.05 K/uL (0.00-0.20); Basophils % (auto) 0.5 %; Eosinophils # (auto) 0.34 K/uL (0.00-0.50); Eosinophils % (auto) 3.5 %; Folate (Folic Acid),Ser orPlas 19.54 ng/ml (>5.38); Immature Granulocytes # (auto) 0.12 K/uL (0.01-0.20); Immature Granulocytes % (auto) 1.2 %; Lymphocytes % (auto) 14.3 %; Monocytes # (auto) 0.23 K/uL (0.11-0.59); Monocytes % (auto) 2.4 %; Neutrophils # (auto) 7.64 K/uL (1.40-6.50); Neutrophils % (auto) 78.1 %; Vitamin B12 > 1500 pg/ml (180-914)
[2024-08-15] MEDS: INSULIN ASPART PER UNIT CHARGE SC SCH (08:28)
[2024-08-15] MEDS: CEFEPIME 1000MG 1,000 MG/10 ML SYR IV SCH (08:49)
[2024-08-15] MEDS ORDERED: ATORVASTATIN 20 MG TAB PO SCH (09:00)
--- NOTE | 2024-08-15 09:06 | Ultrasound Report ---
BILATERAL LOWER EXTREMITY VENOUS DOPPLER CLINICAL HISTORY: b/l lower ext erythema. dvt? COMPARISON STUDY: No previous studies for comparison. TECHNIQUE: Sonography of the deep venous system of the bilateral lower extremities was performed. Co mpression and augmentation were evaluated. FINDINGS: The bilateral common femoral, superficial femoral and popliteal veins were compressible. A ugmentation was normal. Flow was shown within the deep calf vessels. IMPRESSION: No evidence of deep venous thrombus within the bilateral lower extremities. ACT 112: Negative or not required by law. Electronically signed by: Dewey Jorge M.D. 08/15/2024 9:04 AM
--- NOTE | 2024-08-15 09:53 | Infectious Disease Consult ---
<Statement entered by Luca Ocampo II, DO - 08/17/24 13:10> I saw and evaluated the patient on 08/16/2024. I have reviewed the trainee note and agree. Date of Service August 15, 2024 Telehealth Information I performed this visit using a real-time telehealth connection between my location and the patients location ([facility]). After connecting through interactive tele-video, patient was identified by name and date of and/or wristband check.Patient (or authorized healthcare premium representative) was informed that this was a telemedicine visit and it was being conducted confidentially over secure lines. My office door was closed and no one else was present in the room with me.Patient (or authorized healthcare premium representative) provided consent to proceed with the visit, expressed an understanding of privacy and security of the telemedicine visit, and gave permission to have a hospital premium representative in the room in order to assist with the visit and to conduct portions of the visit, as needed. I informed the patient (or authorized healthcare premium representative) that I reviewed their record and presented the opportunity for them to ask any questions regarding the visit today. The patient agreed to participate. Assessment & Plan (1) Diabetic foot ulcer: (2) Cellulitis of right lower extremity: (3) JUANA (acute kidney injury): Plan -The bilateral LE appear to have chronic venous stasis, less concern for cellulitis -Please hold all antibiotics at this time in setting of JUANA -When Vancomycin trough falls below 15 then please start Daptomycin 6-10 mg/kg -If crcl >30 ml/min then administer daily, if <30 ml/min then administer q48hrs (adjust per renal function) -Continue Daptomycin through 09/17/24 as previously planned for treatment of OM of R. diabetic foot wound -ID will sign off at this time Case discussed with ID Attending Dr. Terrence Figueroa MD Infectious Disease PGY-5 [facility] History of Present Illness History of Present Illness PmHx: type 2 diabetes, diabetic ulcer of right midfoot, dyslipidemia, hypophosphatemia, hypertension, history of C. difficile colitis, oral thrush, cellulitis of right leg, abscess of right foot, absent seizures, history of lung cancer CC: confusion and fevers Pt was recently admitted to [facility] from 08/02/2024 to 08/11/2024 for right foot swelling/erythema and fevers. S/p I&D by podiatry at bedside on 08/03 with purulence noted, Clx with MSSA. Repeat I/D on 08/06 with podiatry with no further purulence noted. ID directed to treat with 6wks of cefazolin through 09/17 for likely OM considering 2nd metatarsal frx seen on XR and proximity of noted purulence during I/D. MRI showing no signs of overt OM. Also treated with Tamiflu for acute influenza. 08/07 patient with rash to Cefazolin and changed to Vancomycin, discharged to [facility] rehab on 08/11. Whilst there reports of him still having SOB and fevers, notable the right foot erythema spreading. ID directed addition of Ceftriaxone but patient brought to ED due to fevers and reports of AMS. On presentation febrile 38.3C (Tm 38.8C) hr 9 rr20 94% RA BP 100/67 wbc 10.87. CXR showing PICC and no active chest disease, CT a/p showing hepatomegaly, minimal free fluid, fluid in rectum, mild diverticulosis. CT head negative, venous Doppler negative for DVT. Bclx and Uclx pending with very recent 08/13 Uclx straight cath showing no growth. Of note sCr is 4.54, random vanco trough 36.1, ESR 93, CRP 21, RPP negative. Currently on cefepime and vancomycin held. Pt not able to give considerable history, falling asleep and only making single sounds to questioning. Allergies Allergy/AdvReac Type Severity Reaction Status Date / Time cefazolin Allergy Intermediate Rash Verified 08/14/24 23:14 Home Medications Medication Instructions Recorded Confirmed Type Lactobacillus acidophilus 10 10,000 mmu cells PO DAILY 08/14/24 08/14/24 History billion cell capsule (Probiotic) aspirin 81 mg tablet,delayed 81 mg PO DAILY 08/14/24 08/14/24 History release atenolol 100 mg tablet 100 mg PO DAILY 08/14/24 08/14/24 History atorvastatin 20 mg tablet 20 mg PO DAILY 08/14/24 08/14/24 History bisacodyl 10 mg rectal suppository 10 mg MA DAILY PRN Constipation 08/14/24 08/14/24 History (Dulcolax (bisacodyl)) ceftriaxone 1 gram intravenous 1 g IV DAILY 08/14/24 08/14/24 History solution cyanocobalamin (vitamin B-12) 500 500 mcg PO DAILY 08/14/24 08/14/24 History mcg tablet empagliflozin 25 mg tablet 25 mg PO DAILY 08/14/24 08/14/24 History gabapentin 300 mg capsule 600 mg PO HS 08/14/24 08/14/24 History hydroxyzine HCl 10 mg tablet 10 mg PO HS PRN Anxiety 08/14/24 08/14/24 History lamotrigine 100 mg tablet 100 mg PO BID 08/14/24 08/14/24 History (Lamictal) lisinopril 20 mg tablet 20 mg PO DAILY 08/14/24 08/14/24 History metformin 500 mg tablet 500 mg PO BID 08/14/24 08/14/24 History multivitamin with minerals 1 tab PO DAILY 08/14/24 08/14/24 History ondansetron 4 mg disintegrating 4 mg PO Q8H PRN Nausea And Vomiting 08/14/24 08/14/24 History tablet oxycodone 5 mg tablet 5 mg PO Q6H PRN Severe Pain (Scale 08/14/24 08/14/24 History Score 7-10) vancomycin 1,000 mg intravenous 1 g IV UD 08/14/24 08/14/24 History injection Patient History Social History Smoking Status: Never smoker Hx Alcohol Use: No Hx Substance Use: No Preferred Language: Belgian Communication Ability: Impaired 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 Awakes bu nurses voice but does not provide history. B/L LE appear to have chronic venous stasis, surgical site appears to have minimal surrounding erythema with beefy red base- no purulence observed. Surrounding foot without appearance of swelling or erythema. (bandage removed by nurse for purpose of this examination). Results & Data Vital Signs (Past 12 Hours) Vital Signs Temp Pulse Pulse Resp BP BP Pulse Ox 08/15/24 07:04 37.8 C H 90 22 144/77 H 96 08/15/24 02:28 37.1 C 77 20 116/67 97 08/14/24 23:10 36.8 C 79 16 126/46 L 97 08/14/24 23:10 08/14/24 22:58 78 08/14/24 22:18 84 23 116/61 97 08/14/24 22:02 99 H Pulse Ox O2 Del Method O2 Del Method O2 Flow Rate O2 Flow Rate 08/15/24 07:04 Nasal Cannula 3 08/15/24 02:28 Nasal Cannula 4 08/14/24 23:10 Nasal Cannula 4 08/14/24 23:10 97 Nasal Cannula 4 08/14/24 22:58 08/14/24 22:18 08/14/24 22:02 (1) Diabetic foot ulcer Diabetes mellitus type: type 2 Diabetic foot ulcer location: midfoot Laterality: right Non-pressure ulcer stage: with fat layer exposed Qualified Code(s): E11.621 - Type 2 diabetes mellitus with foot ulcer; L97.412 - Non- pressure chronic ulcer of right heel and midfoot with fat layer exposed
--- NOTE | 2024-08-15 10:51 | XRay Report ---
XR foot RT min 3V routine CLINICAL HISTORY: Osteomyelitis right calcaneus COMPARISON: None FINDINGS: 3 views of the right foot demonstrate a prior great toe ray amputation at the level of the distal first metatarsal. There is exuberant callus surrounding a second metatarsal midshaft fracture . The lateral view suggests a plantar soft tissue ulcer. There is also some soft tissue prominence ov er the heel. The calcaneus is intact with no radiographic evidence of calcaneal osteomyelitis. IMPRESSION: No definite radiographic evidence of osteomyelitis as described. ACT 112: Negative or not required by law. Electronically signed by: Deanna Rodríguez M.D. 08/15/2024 10:49 AM
[2024-08-15] MEDS: ACETAMINOPHEN 1,000 MG/100 ML VIAL IV PRN (11:00)
[2024-08-15] MEDS: ASPIRIN 81 MG ECTAB PO SCH (11:13)
[2024-08-15] MEDS: MULTIVITAMIN TAB PO SCH (11:13)
[2024-08-15] MEDS: ADVANCED PROBIOTIC 625 MG CAPSULE PO SCH (11:13)
[2024-08-15] MEDS: FERROUS SULFATE 325 MG TAB PO SCH (11:13)
[2024-08-15] MEDS: lamoTRIgine 100 MG TAB PO SCH (11:13)
[2024-08-15] MEDS: ATENOLOL 50 MG TABLET PO SCH (11:13)
[2024-08-15] MEDS: CYANOCOBALAMIN (B-12) 500 MCG TABLET PO SCH (11:13)
--- NOTE | 2024-08-15 11:23 | Electrocardiogram Report ---
Test Reason : Blood Pressure : */* mmHG Vent. Rate : 88 BPM Atrial Rate : 88 BPM P-R Int : 188 ms QRS Dur : 96 ms QT Int : 366 ms P-R-T Axes : 23 -9 28 degrees QTcB Int : 442 ms Normal sinus rhythm Normal ECG No previous ECGs available Confirmed by Quintin Martínez ([id number]) on 08/15/2024 11:22:41 AM Referred By: REFERRED SELF Confirmed By: Quintin Martínez
--- NOTE | 2024-08-15 11:23 | Nephrology Consultation ---
Date of Consultation August 15, 2024 Assessment & Plan (1) JUANA (acute kidney injury): Sudden severe JUANA from ATN with Sepsis. ATN could be Ischemic or toxic in the setting of Sepsis/vanco. From normal creat went to 4.5 within a span of 48 hrs. However since then No further rise and actually slight drop. Also making urine and no major issues with fluid overload and/or lytes. No need of Dialysis however he is not out of danger yet given he is still very sick and not in full recovery path. Obstruction already ruled out. Continue IV --raise the dose to 100 ml/hr of NS I and O charting. Daily renal panel and CBC. maintain good hemodynamics. Hold metformin, Jardiance, Lisinopril. No NSAIDS, no contrast agents or Diuretics for now. As much as possible use alternate Abx--no vancomycin. (2) Sepsis: Source is diabetic Ulcer with recent complications. Plan Case complexity high involving review of extensive labs done recently in 2 different hospitals. Assessment and plan was discussed with primary team and is in agreement. Total time spent 81 minutes History of Present Illness Reason for Consultation: JUANA with sepsis Attending Physician: Speedy Canchola MD History of Present Illness 63/M with normal creat as of 5 days ago. he has type 2 diabetes, diabetic ulcer of right midfoot, dyslipidemia, hypophosphatemia, hypertension, history of C. difficile colitis, oral thrush, cellulitis of right leg, abscess of right foot, absent seizures, history of lung cancer, was sent in by [facility] rehab yesterday because of confusion and fevers. Patient was in [facility] from 08/02/2024 to 08/11/2024. He was admitted to the [facility] for right foot swelling and redness and fevers. And right foot x-ray showed healed fracture through the midshaft of second metatarsal bone with calcified bridging callus. MRI of the foot was negative for osteomyelitis and showed cellulitis and possible abscess. Status post I&D by podiatry at bedside on August 03 with a deep purulence obtained and sent for culture. Status post I&D with podiatry for sepsis on August 06. During hospital stay he was also completed Tamiflu for influenza. ID suggested Ancef until September 17 and to treat as osteomyelitis for MSSA on wound cultures with 6 weeks of IV antibiotics. On August 07 patient had rash thought to be from Ancef. Rash was worsening after second dose of Ancef and patient was having fevers that thought to be lined up from Ancef doses and was thought possible drug fever. After that ID recommended IV Vanco via PICC line. Vancomycin dosing goal AUC 400-600 Mg/liter/hour. And patient was discharged to [facility] on 08/11/2024. At [facility] patient was still having fevers and shortness of breath and erythema around his wound still present. Creat started rising from 08/09 and was 1.6 and then 2.8 on recent discharge and 4.5 on 08/13. patient appears sick and confused and did not answer my question. Currently getting NS. Vanco level was very high at 36. BP is now good but was somewhat low yesterday in ED. ?? Low BP at the [facility]. Creat normal 08/09, 1.6 on 08/10 , 2.8 on 08/11. despite rising creat he was discharged !! Then 4.5 on 08/13, 4.4 on 08/14 and today is down a bit to 4.19. Making urine . has joseph. CT abdomen--no Hydronephrosis. ROS---Unable to obtain as patient did not open eyes. He appeared to be sick. febrile Allergies Allergy/AdvReac Type Severity Reaction Status Date / Time cefazolin Allergy Intermediate Rash Verified 08/14/24 23:14 Home Medications Medication Instructions Recorded Confirmed Type Lactobacillus acidophilus 10 10,000 mmu cells PO DAILY 08/14/24 08/14/24 History billion cell capsule (Probiotic) aspirin 81 mg tablet,delayed 81 mg PO DAILY 08/14/24 08/14/24 History release atenolol 100 mg tablet 100 mg PO DAILY 08/14/24 08/14/24 History atorvastatin 20 mg tablet 20 mg PO DAILY 08/14/24 08/14/24 History bisacodyl 10 mg rectal suppository 10 mg MS DAILY PRN Constipation 08/14/24 08/14/24 History (Dulcolax (bisacodyl)) ceftriaxone 1 gram intravenous 1 g IV DAILY 08/14/24 08/14/24 History solution cyanocobalamin (vitamin B-12) 500 500 mcg PO DAILY 08/14/24 08/14/24 History mcg tablet empagliflozin 25 mg tablet 25 mg PO DAILY 08/14/24 08/14/24 History gabapentin 300 mg capsule 600 mg PO HS 08/14/24 08/14/24 History hydroxyzine HCl 10 mg tablet 10 mg PO HS PRN Anxiety 08/14/24 08/14/24 History lamotrigine 100 mg tablet 100 mg PO BID 08/14/24 08/14/24 History (Lamictal) lisinopril 20 mg tablet 20 mg PO DAILY 08/14/24 08/14/24 History metformin 500 mg tablet 500 mg PO BID 08/14/24 08/14/24 History multivitamin with minerals 1 tab PO DAILY 08/14/24 08/14/24 History ondansetron 4 mg disintegrating 4 mg PO Q8H PRN Nausea And Vomiting 08/14/24 08/14/24 History tablet oxycodone 5 mg tablet 5 mg PO Q6H PRN Severe Pain (Scale 08/14/24 08/14/24 History Score 7-10) vancomycin 1,000 mg intravenous 1 g IV UD 08/14/24 08/14/24 History injection Patient History Social History Smoking Status: Never smoker Hx Alcohol Use: No Hx Substance Use: No Preferred Language: Greek Communication Ability: Effective Nurse Transition Required: No Beliefs That Will Affect Care: None Current Living Situation: Personal Care Facility Current Living Situation Comment: Lives at [facility] currently Other Information That Helps Us Care for You: No Feels Safe at Home: Yes Safety Concerns: Feels Safe At This Time Assistive Devices: Denture - Upper and Glasses Results & Data Vital Signs (Past 12 Hours) Vital Signs Temp Pulse Resp BP Pulse Ox O2 Del Method O2 Flow Rate 08/15/24 10:45 38.8 C H 114 H 22 130/70 93 Nasal Cannula 3 08/15/24 07:04 37.8 C H 90 22 144/77 H 96 Nasal Cannula 3 08/15/24 02:28 37.1 C 77 20 116/67 97 Nasal Cannula 4 Laboratory Results Reviewed both recent inpatient labs at [facility] as well as current inpatient labs including CBC renal panel CT abdomen and pelvis. Reviewed urine test as well as CBC renal panel cultures report in chronological orders
[2024-08-15 11:34] LABS: Estimated Average Glucose 246 mg/dl; Hemoglobin A1C 10.2 % (4.5-5.6)
[2024-08-15] MEDS: DEXTROSE 50% 50 ML SYRINGE IV PRN (11:44)
--- NOTE | 2024-08-15 14:27 | Hospitalist Progress Note ---
Date of Service August 15, 2024 Assessment & Plan (1) Sepsis: Plan: 63-year-old male with past medical history significant for type 2 diabetes, diabetic ulcer of right midfoot, dyslipidemia, hypophosphatemia, hypertension, history of C. difficile colitis, oral thrush, cellulitis of right leg, abscess of right foot, absent seizures, history of lung cancer, was sent in by [facility] rehab because of confusion and fevers. Patient was in [facility] from 08/02/2024 to 08/11/2024. He was admitted to the [facility] for right foot swelling and rednesss and fevers. And right foot x-ray showed healed fracture through the midshaft of second metatarsal bone with calcified bridging callus. Pes planus. He was admitted for right foot infection. MRI of the foot was negative for osteomyelitis and showed cellulitis and possible abscess. Status post I&D by podiatry at bedside on August 03 with a deep purulence obtained and sent for culture. Status post I&D with podiatry for sepsis on August 06 and probe to bone very favorable and no clear abscess as suggested by CT scan. During hospital stay he was also completed Tamiflu for influenza. ID suggested Ancef until September 17 and to treat as osteomyelitis for MSSA on wound cultures with 6 weeks of IV antibiotics. On August 07 patient had rash thought to be from Ancef. Rash was worsening after second dose of Ancef and patient was having fevers that thought to be lined up from Ancef doses and was thought possible drug fever. And ID recommended IV Vanco via PICC line. Vancomycin dosing goal AUC 400-600 Mg/liter/hour. And patient was discharged to [facility] on 08/11/2024. At [facility] patient was still having fevers and shortness of breath and erythema around his wound ,does not appear to be receding thought to be spreading. [facility] made ID aware. As per the med rec from the [facility] seems patient had Rocephin. And was sent to our ER today because of fever and altered mental status. Patient can tell his name. Knows that he is in the hospital. Could tell his date of . But could not tell current dates. Denies any cough. Denies headache. Denies chest pain. Denies shortness of breath. Denies belly pain. Status post Guillermina in the ER. Patient seems poor historian at this time. No sacral ulcer seen. Sepsis Bilateral lower extremity cellulitis Right foot diabetic ulcer Recently on [facility] was placed on IV Vanco for 6 weeks until September 17 to treat his osteomyelitis though MRI was negative and abscess was I&D by podiatry at [facility] --Right Foot X ray: No definite radiographic evidence of osteomyelitis as desc ribed. --Venous Doppler:No evidence of deep venous thrombus within the bilateral lower extremities. -- Blood cultures pending Continue IV cefepime for now Continue IV fluids Avoid IV Vanco as trough level high, JUANA Infectious disease consulted for further recommendations Podiatry consulted as well Continue local wound care Acute metabolic encephalopathy Likely due to above infection Suspected urinary tract infection --Head CT:No acute findings in the head/brain. --Urine culture pending --Continue IV cefepime as above Reorient frequently to minimize delirium Acute kidney injury likely ATN/toxic secondary to infection, vancomycin Cr: 4.4>4.1 Creatinine was 1.6 on 08/12/2024 --CT ABD:Mild nonspecific perinephric stranding. No hydronephrosis. Simple 2 cm left renal cyst. No follow-up of this simple cyst is necessary. Avoid nephrotoxic agents as able Monitor renal function, urinary output Appreciate nephrology input Continue IV fluids Bladder scan as needed Metformin, Jardiance, lisinopril on hold Avoid NSAIDs Transaminitis Likely due to sepsis, fatty liver --CT ABD:Hepatic steatosis. Hepatomegaly. Minimal free fluid around the liver and in the pelvis. Monitor LFTs Hold Lipitor for now Hyponatremia Sodium 133 today Monitor Anemia Iron deficiency anemia Anemia of chronic disease No obvious signs of bleeding Vit B12, folate levels reviewed Monitor CBC Started on iron supplement Hypertension Hold lisinopril Continue atenolol with holding parameters Monitor DM II Hold home medications Adjust insulin per protocol to minimize hypoglycemic episodes Monitor blood glucose levels Hyperlipidemia Hold statin due to elevated LFTs History of seizures On Lamictal Remote history of lung cancer Treated with chemo as per records DVT Px: Heparin SQ Code Status Full code Disposition To be determined Admission and Anticipated Discharge Date Admission Date: August 14, 2024 Subjective Patient is seen and examined at bedside Confused and unable to provide much history Mild distress on exam Sitter at bedside Blood, urine cultures pending Review of Systems Review of Systems: Other Physical Exam Physical Exam: Physical Exam: Vitals signs as noted above General Appearance:Moderately built and nourished, mild distress, confused Head: normocephalic, Atraumatic Eyes: normal inspection, EOMI Neck: supple, Trachea midline Respiratory/Chest: Normal breath sounds, CTA, No accessory muscle use Cardiovascular: S1, S2, No murmur Abdomen/GI:Soft, Non tender, Bowel sounds present, protuberant Extremities/Musculoskeletal:normal inspection, 1-2+ B/L LE edema, erythema, R great toe s/p amputation, R foot ulcer Neurologic/Psych:AAOX1, grossly no focal neurological deficits Skin: normal color, warm Results & Data Results & Data Vital Signs (Past 12 Hours) Vital Signs Temp Pulse Resp BP Pulse Ox O2 Del Method O2 Flow Rate 08/15/24 12:32 Nasal Cannula 3 08/15/24 10:45 38.8 C H 114 H 22 130/70 93 Nasal Cannula 3 08/15/24 07:04 37.8 C H 90 22 144/77 H 96 Nasal Cannula 3 08/15/24 02:28 37.1 C 77 20 116/67 97 Nasal Cannula 4 Laboratory Results Short CBC 08/14/24 08/15/24 Range/Units 18:00 05:51 WBC 10.77 9.78 (4.8-10.8) K/ul Hgb 9.1 L 8.6 L (14.0-18.0) g/dl Hct 28.0 L 26.2 L (42.0-52.0) % Plt Count 481 H 455 H (130-400) K/uL BMP 08/14/24 08/15/24 18:00 05:51 Sodium 130 L 133 L Potassium 4.3 4.1 Chloride 103 108 H Carbon Dioxide 24 25 BUN 26 H 26 H Creatinine 4.45 H 4.19 H Glucose 66 L 63 L Calcium 8.0 L 7.6 L Liver Function 08/14/24 08/15/24 Range/Units 18:00 05:51 Total Bilirubin 2.1 H 2.0 H (0.2-1.0) mg/dl Direct Bilirubin 1.4 H (0-0.2) mg/dl AST 120 H 103 H (13-39) U/L ALT 96 H 85 H (7-52) U/L Alkaline Phosphatase 222 H 206 H (34-104) U/L Albumin 2.2 L 1.9 L (3.4-5.0) gm/dl Urine 08/14/24 Range/Units 20:58 Urine Color Dark Yellow Urine Appearance Cloudy A (Clear) Urine pH 5.0 (4.5-7.5) Ur Specific [place] 1.018 (1.000-1.030) Urine Protein 1+ H (Negative) Urine Glucose (UA) Negative (Negative)
--- NOTE | 2024-08-15 14:34 | Podiatry Consultation ---
Date of Consultation August 15, 2024 Assessment & Plan (1) Diabetic foot ulcer: Diabetes mellitus type: type 2 Diabetic foot ulcer location: midfoot Laterality: right Non-pressure ulcer stage: with fat layer exposed Qualified Code(s): E11.621 - Type 2 diabetes mellitus with foot ulcer; L97.412 - Non-pressure chronic ulcer of right heel and midfoot with fat layer exposed (2) Cellulitis of right lower extremity: (3) Sepsis: Plan Diabetic ulcer right foot: Order: X-rays right throat 3 views. Plain film radiographs reviewed with no radiographic signs of osteomyelitis. Order: MRI right foot and ankle without contrast to evaluate for any signs of o steomyelitis specifically in the area of the midfoot ulceration and previous abscess. Order: Right lower extremity duplex arterial ultrasound. Weightbearing status: Patient remain nonweightbearing right foot. Pending imaging studies. Will likely have patient fit with offloading cam walker prior to discharge. Wound dressing right foot: Change dressing once daily. Flushed wound with normal sterile saline pack wound bed with half-inch plain Nu Gauze dressed with a bordered foam dressing. No plan for surgical intervention at this time. Patient's case discussed with hospitalist team. Will await MRI results and if there is concern for underlying osteomyelitis or local fluid collection will plan for or based debridement with bone biopsy. Thank you for consulting podiatry to aid in the care of this patient. Will continue to follow him throughout his hospital stay and make recommendations for follow-up at time of discharge. History of Present Illness Reason for Consultation: Right foot infected callus Attending Physician: Speedy Canchola MD History of Present Illness Ovidio is a 63-year-old male past medical history significant for type 2 diabetes with diabetic peripheral neuropathy, history of diabetic foot ulcer with osteomyelitis status post partial first ray amputation right foot, ongoing diabetic ulcer of the right midfoot, poorly controlled type 2 diabetes with A1c of 10.2, hypertension, hyperlipidemia, history of lung cancer. Patient was recently hospitalized at [facility] from 08/02/2024 to 08/11/2024 with cellulitis of the right lower extremity. MRI of the right foot during that admission was negative for osteomyelitis. Status post I&D of the right foot with draining of abscess on 08/03/2024 and 08/06/2024. Purulent drainage from abscess cultured [facility]. Based on patient's culture recommendation was made by infectious disease for 6 weeks IV Ancef. Unfortunately patient developed reaction to the Ancef with rash and possible drug fever which led to a transition to IV vancomycin. He was discharged to [facility] on 08/11/2024. Patient had persistent fevers, shortness of breath and erythema surrounding the wound on his right foot. Presented to the [facility] emergency department 08/14/2024 with fever and altered mental status. Allergies Allergy/AdvReac Type Severity Reaction Status Date / Time cefazolin Allergy Intermediate Rash Verified 08/14/24 23:14 Home Medications Medication Instructions Recorded Confirmed Type Lactobacillus acidophilus 10 10,000 mmu cells PO DAILY 08/14/24 08/14/24 History billion cell capsule (Probiotic) aspirin 81 mg tablet,delayed 81 mg PO DAILY 08/14/24 08/14/24 History release atenolol 100 mg tablet 100 mg PO DAILY 08/14/24 08/14/24 History atorvastatin 20 mg tablet 20 mg PO DAILY 08/14/24 08/14/24 History bisacodyl 10 mg rectal suppository 10 mg IA DAILY PRN Constipation 08/14/24 08/14/24 History (Dulcolax (bisacodyl)) ceftriaxone 1 gram intravenous 1 g IV DAILY 08/14/24 08/14/24 History solution cyanocobalamin (vitamin B-12) 500 500 mcg PO DAILY 08/14/24 08/14/24 History mcg tablet empagliflozin 25 mg tablet 25 mg PO DAILY 08/14/24 08/14/24 History gabapentin 300 mg capsule 600 mg PO HS 08/14/24 08/14/24 History hydroxyzine HCl 10 mg tablet 10 mg PO HS PRN Anxiety 08/14/24 08/14/24 History lamotrigine 100 mg tablet 100 mg PO BID 08/14/24 08/14/24 History (Lamictal) lisinopril 20 mg tablet 20 mg PO DAILY 08/14/24 08/14/24 History metformin 500 mg tablet 500 mg PO BID 08/14/24 08/14/24 History multivitamin with minerals 1 tab PO DAILY 08/14/24 08/14/24 History ondansetron 4 mg disintegrating 4 mg PO Q8H PRN Nausea And Vomiting 08/14/24 08/14/24 History tablet oxycodone 5 mg tablet 5 mg PO Q6H PRN Severe Pain (Scale 08/14/24 08/14/24 History Score 7-10) vancomycin 1,000 mg intravenous 1 g IV UD 08/14/24 08/14/24 History injection Patient History Social History Smoking Status: Never smoker Hx Alcohol Use: No Hx Substance Use: No Preferred Language: Khmer Communication Ability: Impaired Orthopedic Nurse Required: No Beliefs That Will Affect Care: None Current Living Situation: Personal Care Facility Current Living Situation Comment: Lives at [facility] currently Other Information That Helps Us Care for You: No Feels Safe at Home: Yes Safety Concerns: Feels Safe At This Time Assistive Devices: None Review of Systems Review of Systems: Patient is a poor historian and in and out of sleep during our visit today. He does answer yes or no questions denies pain in the right foot. Physical Exam Physical Exam: Appears well developed and well nourished. Patient is restless while laying in bed without appearing agitated. In and out of sleep during evaluation. He does answer yes or no questions and denies pain in the right foot with probing of the wound. CV: Extremities: No cyanosis Capillary refill time is less than 3-4 seconds all digits of the bilateral foot. Posterior tibial and dorsalis pedis pulses are non-palpable bilateral. Skin: Thin atrophic skin with loss of hair growth below the knee. Neuro: Loss of protective sensation to the bilateral foot as tested with Weston Bridger 5.07 monofilament. Psych: Mood/Affect: Mood is normal. Affect is normal. Focused lower extremity musculoskeletal exam: Leg: No pain with compression of the calf muscle. Ankles: Normal to inspection and palpation. No tenderness bilaterally. Motor strength is intact. Range of motion pain-free with limited dorsiflexion of the ankle bilateral. Feet: History of partial first ray amputation right foot. Plantar ulceration of the midfoot right foot. There is a fading X marked on the dorsal aspect of both feet this am assuming is where they were able to find a dorsalis pedis pulse with the bedside Doppler during his previous hospital stay. Ulcer right foot: Ulcer to the plantar medial right midfoot with mixed granular phlegmon tissue to the wound bed. Wound probes 3 cm proximal and distal to the superficial opening. There is a firm endpoint to the base of the wound which possibly represents periosteum versus joint capsule versus dense fascial tissue. No janae probe to bone identified within the wound bed. Sanguinous drainage on evaluation with scant genaro-colored serous drainage to the dressing noted. No notable malodor. Periwound erythema and edema. Bilateral leg below the knee is erythematous with thin atrophic skin. No apparent wound to the left foot. Results & Data Vital Signs (Past 12 Hours) Vital Signs Temp Pulse Resp BP Pulse Ox O2 Del Method O2 Flow Rate 08/15/24 12:32 Nasal Cannula 3 08/15/24 10:45 38.8 C H 114 H 22 130/70 93 Nasal Cannula 3 08/15/24 07:04 37.8 C H 90 22 144/77 H 96 Nasal Cannula 3 08/15/24 02:28 37.1 C 77 20 116/67 97 Nasal Cannula 4 Laboratory Results Labs on admission: WBC 10.87, creatinine 4. 5 4, blood glucose 69, hemoglobin A1c 10.2, CRP 21.31, ESR 93 Troponin 1 high-sensitivity 08/14/2024 20.9, 08/15/2019 2524.2 Vancomycin 36.1 Diagnostic Findings Duplex arterial ultrasound right lower extremity: 08/15/2024:IMPRESSION: Negative right lower extremity arterial evaluation. No occlusion or significant hemodynamic stenosis with multiphasic waveforms throughout. Lower extremity venous Doppler ultrasound 08/15/2022:IMPRESSION: No evidence of deep venous thrombus within the bilateral lower extremities. X-ray right foot 3 views 08/15/2022: COMPARISON: None FINDINGS: 3 views of the right foot demonstrate a prior great toe ray amputation at the level of the distal first metatarsal. There is exuberant callus surrounding a second metatarsal midshaft fracture. The lateral view suggests a plantar soft tissue ulcer. There is also some soft tissue prominence over the heel. The calcaneus is intact with no radiographic evidence of calcaneal osteomyelitis. IMPRESSION: No definite radiographic evidence of osteomyelitis as described. PG Care Time/CCT Total # of Minutes Spent Total Time Spent with Patient: Total time spent is greater than 50% in coordination of care (as documented) at patient's floor/unit and/or counseling patient: [place] [address] INT INP/OBS CARE 3/75MIN Patient Type New Diagnoses Diabetic foot ulcer E11.621; L97.412 Diabetes mellitus type: type 2 Diabetic foot ulcer location: midfoot Laterality: right Non-pressure ulcer stage: with fat layer exposed Cellulitis of right lower extremity L03.115 Sepsis A41.9
--- NOTE | 2024-08-15 14:48 | Pharmacy Report ---
Pharmacy PK ABX Note - Date of Service August 15, 2024 - Assessment and Plan Assessment 63 year old M receiving vancomycin prior to admission for osteomyelitis. Was previously at OSH from 08/02-08/11 where he had initially been started on ancef x 6 weeks for osteomyelitis with MSSA, however developed rash and changed to vancomcyin on 08/07. Discharged to [facility] on 08/11 and Scr started rising since then. Scr up to 4.45 mg/dL on admission. Patient also with continued fevers, shortness of breath. Random vancomycin level collected last evening - came back supratherapeutic at ~36 mcg/ml. Estimated t 1/2 ~33 hours based upon current renal function. Discussed with provider supratherapeutic level for vancomycin and plan to hold doses of vancomycin today. Will order another random vancomycin level tomorrow to assess clearance and an alternative agent will be considered. 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 Thank you. Pharmacy has transitioned to AUC monitoring for vancomycin. AUC/PATTI is the preferred PK/PD target and is associated with decreased risk of nephrotoxicity compared to traditional trough targets.
--- NOTE | 2024-08-15 15:36 | Communication Note ---
Date of Service: August 15, 2024 Try to reach legal guardian, family members over the phone, no answer.
--- NOTE | 2024-08-15 21:46 | Ultrasound Report ---
Exam(s): US ARTERIAL RIGHT LOWER EXTREMITY EXAM: US Duplex Right Lower Extremity Arteries CLINICAL HISTORY: Slow wound healing diabetic ulcer right foot. TECHNIQUE: Real-time duplex ultrasound scan of the right lower extremity arteries integrating B-mode two-dimensional vascular structure, Doppler spectral analysis and color flow Doppler imaging. COMPARISON: No relevant prior studies available. FINDINGS: Right common femoral artery: Multiphasic waveforms. No significantly elevated duplex velocities. The peak systolic velocity is 103 cm/s. Right superficial femoral artery: Multiphasic waveforms. No significantly elevated duplex velocities. The peak systolic velocities ranging between 123 cm/s proximally, 113 cm/s at the mid segment and 107 cm/s distally. Right popliteal artery: Multiphasic waveforms. No significantly elevated duplex velocities. The peak systolic velocities between 99 and 93 cm/s. Right calf/foot arteries: Right trifurcation: The right posterior tibial artery is patent with multiphasic waveforms and peak systolic velocities between 86, 102 and 110 cm/s. The peroneal artery was interrogated with biphasic to multiphasic waveforms and peak systolic velocities between 90 and 74 cm/s. The anterior tibial artery is patent with multiphasic waveforms and peak systolic velocities between 72 and 103 cm/s. The dorsalis pedis artery demonstrates multiphasic waveforms. Other arteries: Right profunda femoral artery: Biphasic waveforms. No significantly elevated duplex velocities. The peak systolic velocity is 112 cm/s. Soft tissues: Unremarkable. IMPRESSION: Negative right lower extremity arterial evaluation. No occlusion or significant hemodynamic stenosis with multiphasic waveforms throughout. Electronically signed by: Donald Head MD 08/15/24 21:45 PM
[2024-08-15] MEDS: SODIUM CHLORIDE 0.9% 1,000 ML IV SCH (23:02)
[2024-08-16 06:30] LABS: Albumin Globulin Ratio 0.6 (0.9-2); Albumin Level 2.1 gm/dl (3.4-5.0); BUN Creatinine Ratio 6.7 (10-20); Bilirubin,Total 2.2 mg/dl (0.2-1.0); Calcium 8.6 mg/dl (8.6-10.3); Creatinine Clr Calc Pharmacy 20.1 ml/min; Globulin 3.7 gm/dl (2.5-4.0); Potassium 4.3 mmol/L (3.5-5.1); Total Protein 5.8 gm/dl (6.0-8.3)
--- NOTE | 2024-08-16 10:32 | Podiatry Progress Note ---
Date of Service August 16, 2024 Assessment & Plan (1) Diabetic ulcer of right foot associated with diabetes mellitus due to underlying condition, with bone involvement without evidence of necrosis: (2) Cellulitis of right lower extremity: (3) Cellulitis of left lower extremity: Plan Diabetic ulcer right foot, bilateral lower extremity cellulitis. Wound is probed again today and unable to find any direct probe to bone or fluid collection within or in the proximity of the wound base. Sanguinous drainage only. X-rays right throat 3 views 08/15/2024: Plain film radiographs reviewed with no radiographic signs of osteomyelitis. Right lower extremity duplex arterial ultrasound 08/15/2024:IMPRESSION: Negative right lower extremity arterial evaluation. No occlusion or significant hemodynamic stenosis with multiphasic waveforms throughout. Order: MRI right foot and ankle without contrast to evaluate for any signs of osteomyelitis specifically in the area of the midfoot ulceration and previous abscess. Pending Weightbearing status: Patient remain nonweightbearing right foot. Pending imaging studies. Will likely have patient fit with offloading cam walker prior to discharge. Wound dressing right foot: Change dressing once daily. Flushed wound with normal sterile saline pack wound bed with half-inch plain Nu Gauze dressed with a bordered foam dressing. No plan for surgical intervention at this time. Will await MRI results and if there is concern for underlying osteomyelitis or local fluid collection will plan for or based debridement with bone biopsy. Admission and Anticipated Discharge Date Admission Date: August 14, 2024 Subjective Patient seen resting in hospital bed. One-on-one nurse present in room. Patient response to verbal stimulus but is not answering questions. In and out of sleep throughout her visit. Reevaluated the right foot with probing of the wound without patient displaying visible signs of discomfort. He was able to have arterial ultrasound of the right lower extremity completed without difficulty. Awaiting clearance for MRI of the right foot to evaluate for osteomyelitis. Unable to reach family. Review of Systems Review of Systems: Patient is in and out of sleep during our visit today. No fever overnight. Physical Exam Physical Exam: Appears well developed and well nourished. Patient is restless while laying in bed without appearing agitated. In and out of sleep during evaluation. CV: Extremities: No cyanosis Capillary refill time is less than 3-4 seconds all digits of the bilateral foot. Posterior tibial and dorsalis pedis pulses are non-palpable bilateral. Skin: Thin atrophic skin with loss of hair growth below the knee. Neuro: Loss of protective sensation to the bilateral foot as tested with [employer]on Bridger 5.07 monofilament. Psych: Mood/Affect: Mood is normal. Affect is normal. Focused lower extremity musculoskeletal exam: Leg: No pain with compression of the calf muscle. Ankles: Normal to inspection and palpation. No tenderness bilaterally. Motor strength is intact. Range of motion pain-free with limited dorsiflexion of the ankle bilateral. Feet: History of partial first ray amputation right foot. Plantar ulceration of the midfoot right foot. There is a fading X marked on the dorsal aspect of both feet this am assuming is where they were able to find a dorsalis pedis pulse with the bedside Doppler during his previous hospital stay. Ulcer right foot: Ulcer to the plantar medial right midfoot with mixed granular phlegmon tissue to the wound bed. Wound probes 3 cm proximal and distal to the superficial opening. There is a firm endpoint to the base of the wound which possibly represents periosteum versus joint capsule versus dense fascial tissue. No janae probe to bone identified within the wound bed. Sanguinous drainage on evaluation with scant genaro-colored serous drainage to the dressing noted. No notable malodor. Periwound erythema and edema. Bilateral leg below the knee is erythematous with thin atrophic skin. No apparent wound to the left foot. Results & Data Results & Data Vital Signs (Past 12 Hours) Vital Signs Temp Pulse Resp BP Pulse Ox O2 Del Method O2 Flow Rate 08/16/24 07:13 37.1 C 92 H 18 127/71 97 Nasal Cannula 3 08/16/24 04:06 36.9 C 80 17 132/76 94 Room Air 08/15/24 22:48 36.5 C 80 24 131/63 100 Nasal Cannula Laboratory Results WBC 9.78. Procalcitonin greater than 100 Vancomycin 26.2 Diagnostic Findings Duplex arterial ultrasound 08/15/2024: IMPRESSION: Negative right lower extremity arterial evaluation. No occlusion or significant hemodynamic stenosis with multiphasic waveforms throughout. [place] [address] SUB INP/OBS CARE 235MIN Patient Type New Diagnoses Diabetic ulcer of right midfoot associated with diabetes mellitus due to underlying condition, with bone involvement without evidence of necrosis E08.621; L97.416 Diabetic foot ulcer location: midfoot Cellulitis of right lower extremity L03.115 Cellulitis of left lower extremity L03.116 (1) Diabetic ulcer of right foot associated with diabetes mellitus due to underlying condition, with bone involvement without evidence of necrosis Diabetic foot ulcer location: midfoot Qualified Code(s): E08.621 - Diabetes mellitus due to underlying condition with foot ulcer; L97.416 - Non-pressure chronic ulcer of right heel and midfoot with bone involvement without evidence of necrosis
--- NOTE | 2024-08-16 10:49 | Nephrology Progress Note ---
Date of Service August 16, 2024 Assessment & Plan Admission and Anticipated Discharge Date Admission Date: August 14, 2024 Subjective Assessment & Plan (1) JUANA (acute kidney injury): Sudden severe JUANA from ATN with Sepsis. ATN could be Ischemic or toxic in the setting of Sepsis/vanco. From normal creat went to 4.5 within a span of 72 hrs. However since then No further rise. Also making urine and no major issues with fluid overload and/or lytes. Obstruction already ruled out. Continue IV --100 ml/hr of NS I and O charting. Daily renal panel and CBC. maintain good hemodynamics. Hold metformin, Jardiance, Lisinopril. No NSAIDS, no contrast agents or Diuretics for now. As much as possible use alternate Abx--no vancomycin. Creat about same as yesterday but he is making slightly more urine so somewhat hopeful that ATN has likely peaked. No dialysis needed today however he is not out of danger yet given he is still very sick and not in full recovery path. (2) Sepsis: Source is diabetic Ulcer with recent complications. S--no new issues. Vital signs are acceptable. Making urine--575 ml yesterday. ROS---Unable to obtain as patient did not open eyes. He appeared to be sick. febrile Physical Exam Physical Exam: General Appearance: mild distress, confused Head: normocephalic, Atraumatic Neck: supple, Respiratory/Chest: Normal breath sounds, Clear, No accessory muscle use Cardiovascular: S1, S2, No murmur Abdomen/GI:Soft, Non tender, Extremities/Musculoskeletal:normal inspection, 1+ B/L LE edema, erythema, R great toe s/p amputation, R foot ulcer Results & Data Vital Signs (Past 12 Hours) Vital Signs Temp Pulse Resp BP Pulse Ox O2 Del Method O2 Flow Rate 08/16/24 07:13 37.1 C 92 H 18 127/71 97 Nasal Cannula 3 08/16/24 04:06 36.9 C 80 17 132/76 94 Room Air 08/15/24 22:48 36.5 C 80 24 131/63 100 Nasal Cannula
[2024-08-16 10:56] LABS: Base Excess VBG -12.6 mEq/L; HCO3 VBG 13 mmol/L; Oxygen Saturation VBG 78.6 %; PCO2 VBG 29 mmHg (38-50); PO2 VBG 45 mmHg; pH VBG 7.26 (7.36-7.41)
--- NOTE | 2024-08-16 10:56 | Pharmacy Report ---
Pharmacy PK ABX Note - Date of Service August 16, 2024 - Assessment and Plan Assessment 63 year old M receiving vancomycin prior to admission for osteomyelitis. Was previously at OSH from 08/02-08/11 where he had initially been started on ancef x 6 weeks for osteomyelitis with MSSA, however developed rash and changed to vancomcyin on 08/07. Discharged to [facility] on 08/11 and Scr started rising since then. Scr up to 4.45 mg/dL on admission. Patient also with continued fevers, shortness of breath. Random vancomycin level collected last evening - came back supratherapeutic at ~36 mcg/ml. Estimated t 1/2 ~33 hours based upon current renal function. Discussed with provider supratherapeutic level for vancomycin and plan to hold doses of vancomycin today. Will order another random vancomycin level tomorrow to assess clearance and an alternative agent will be considered. ID consulted - will await recommendations Plan 08/16/24 update: * Patients random vancomycin levels continue to be supratherapeutic this morning therefore will continue holding vancomycin in the setting of JUANA. * With patients predicted half life, he will likely continue to be therapeutic for another 24 hours; will reassess tomorrow with vancomycin random level ordered with AM labs. 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 Thank you. Pharmacy has transitioned to AUC monitoring for vancomycin. AUC/PATTI is the preferred PK/PD target and is associated with decreased risk of nephrotoxicity compared to traditional trough targets.
[2024-08-16] MEDS: THIAMINE HCL 100 MG in SYRINGE 9 ML IV SCH (15:29)
--- NOTE | 2024-08-16 15:33 | Hospitalist Progress Note ---
Date of Service August 16, 2024 Assessment & Plan (1) Sepsis: Plan: 63-year-old male with past medical history significant for type 2 diabetes, diabetic ulcer of right midfoot, dyslipidemia, hypophosphatemia, hypertension, history of C. difficile colitis, oral thrush, cellulitis of right leg, abscess of right foot, absent seizures, history of lung cancer, was sent in by [facility] rehab because of confusion and fevers. Patient was in [facility] from 08/02/2024 to 08/11/2024. He was admitted to the [facility] for right foot swelling and rednesss and fevers. And right foot x-ray showed healed fracture through the midshaft of second metatarsal bone with calcified bridging callus. Pes planus. He was admitted for right foot infection. MRI of the foot was negative for osteomyelitis and showed cellulitis and possible abscess. Status post I&D by podiatry at bedside on August 03 with a deep purulence obtained and sent for culture. Status post I&D with podiatry for sepsis on August 06 and probe to bone very favorable and no clear abscess as suggested by CT scan. During hospital stay he was also completed Tamiflu for influenza. ID suggested Ancef until September 17 and to treat as osteomyelitis for MSSA on wound cultures with 6 weeks of IV antibiotics. On August 07 patient had rash thought to be from Ancef. Rash was worsening after second dose of Ancef and patient was having fevers that thought to be lined up from Ancef doses and was thought possible drug fever. And ID recommended IV Vanco via PICC line. Vancomycin dosing goal AUC 400-600 Mg/liter/hour. And patient was discharged to [facility] on 08/11/2024. At [facility] patient was still having fevers and shortness of breath and erythema around his wound ,does not appear to be receding thought to be spreading. [facility] made ID aware. As per the med rec from the [facility] seems patient had Rocephin. And was sent to our ER today because of fever and altered mental status. Patient can tell his name. Knows that he is in the hospital. Could tell his date of . But could not tell current dates. Denies any cough. Denies headache. Denies chest pain. Denies shortness of breath. Denies belly pain. Status post Guillermina in the ER. Patient seems poor historian at this time. No sacral ulcer seen. Sepsis Bilateral lower extremity cellulitis Right foot diabetic ulcer Recently on [facility] was placed on IV Vanco for 6 weeks until September 17 to treat his osteomyelitis though MRI was negative and abscess was I&D by podiatry at [facility] --Right Foot X ray: No definite radiographic evidence of osteomyelitis as desc ribed. --Venous Doppler:No evidence of deep venous thrombus within the bilateral lower extremities. --Arterial Doppler:Negative right lower extremity arterial evaluation. No occ lusion or significant hemodynamic stenosis with multiphasic waveforms throughout. -- Blood cultures negative to date Continue IV cefepime for now Continue IV fluids Avoid IV Vanco as trough level high, JUANA Infectious disease consulted for further recommendations--pending input Appreciate Podiatry Input Continue local wound care MRI right foot, ankle pending Afebrile today Aspiration precautions Acute metabolic encephalopathy Likely due to above infection Suspected urinary tract infection --Head CT:No acute findings in the head/brain. --Urine culture: Negative to date --Continue IV cefepime as above Reorient frequently to minimize delirium MRI brain pending Acute kidney injury likely ATN/toxic secondary to infection, vancomycin Cr: 4.4>4.1 Creatinine was 1.6 on 08/12/2024 --CT ABD:Mild nonspecific perinephric stranding. No hydronephrosis. Simple 2 cm left renal cyst. No follow-up of this simple cyst is necessary. Avoid nephrotoxic agents as able Monitor renal function, urinary output Appreciate nephrology input Continue IV fluids per nephrology Bladder scan as needed Metformin, Jardiance, lisinopril on hold Avoid NSAIDs Transaminitis Likely due to sepsis, fatty liver --CT ABD:Hepatic steatosis. Hepatomegaly. Minimal free fluid around the liver and in the pelvis. Monitor LFTs Hold Lipitor for now Hyponatremia Resolved Sodium 137 today Monitor Anemia Iron deficiency anemia Anemia of chronic disease No obvious signs of bleeding Vit B12, folate levels reviewed Monitor CBC Started on iron supplements Hypertension Hold lisinopril Continue atenolol with holding parameters Monitor DM II Hold home medications Adjust insulin per protocol to minimize hypoglycemic episodes Monitor blood glucose levels Hyperlipidemia Hold statin due to elevated LFTs History of seizures On Lamictal Remote history of lung cancer Treated with chemo as per records DVT Px: Heparin SQ Code Status Full code Disposition To be determined Admission and Anticipated Discharge Date Admission Date: August 14, 2024 Subjective Patient is seen and examined at bedside Remains confused Unable to obtain meaningful history Tried to reach patient's family over the phone, left voicemail Poor oral intake, difficulty swallowing Renal function stable Blood, urine culture negative to date Afebrile today Discussed with nephrology today Review of Systems Review of Systems: All systems reviewed & are unremarkable except as noted in Subjective Physical Exam Physical Exam: Physical Exam: Vitals signs as noted above General Appearance:Moderately built and nourished, mild distress, confused Head: normocephalic, Atraumatic Eyes: normal inspection, EOMI Neck: supple, Trachea midline Respiratory/Chest: Normal breath sounds, CTA, No accessory muscle use Cardiovascular: S1, S2, No murmur Abdomen/GI:Soft, Non tender, Bowel sounds present, protuberant Extremities/Musculoskeletal:normal inspection, 1-2+ B/L LE edema, erythema, R great toe s/p amputation, R foot ulcer Neurologic/Psych:AAOX1, grossly no focal neurological deficits Skin: normal color, warm Results & Data Results & Data Vital Signs (Past 12 Hours) Vital Signs Temp Pulse Resp BP Pulse Ox O2 Del Method O2 Flow Rate 08/16/24 11:15 36.5 C 90 18 142/57 H 99 Nasal Cannula 4 08/16/24 11:02 Nasal Cannula 3 08/16/24 07:13 37.1 C 92 H 18 127/71 97 Nasal Cannula 3 08/16/24 04:06 36.9 C 80 17 132/76 94 Room Air Laboratory Results [facility] 08/16/24 05:43 Sodium 137 Potassium 4.3 Chloride 113 H Carbon Dioxide 25 BUN 28 H Creatinine 4.21 H Glucose 68 L Calcium 8.6 Liver Function 08/16/24 Range/Units 05:43 Total Bilirubin 2.2 H (0.2-1.0) mg/dl AST 91 H (13-39) U/L ALT 104 H (7-52) U/L Alkaline Phosphatase 199 H (34-104) U/L Albumin 2.1 L (3.4-5.0) gm/dl
--- NOTE | 2024-08-16 15:40 | Communication Note ---
Date of Service: August 16, 2024 Updated patient's granddaughter Shayy over the phone. Will request neurology evaluation as mental status unimproved from baseline.
--- NOTE | 2024-08-16 16:40 | Neurology Consultation ---
Date of Consultation August 16, 2024 Assessment & Plan (1) Encephalopathy: Suspect toxic/ metabolic encephalopathy Plan Please try to change Cefipime to an alternative antibiotic Check ammonia level , Lamictal level, B12, B1, TSH MRI brain without contrast EEG if possible If remains with no changes consider an LP Telehealth Consultation Telehealth Information Telehealth Information: I performed this visit using a real-time telehealth connection between my location and the patients location ([facility]). After connecting through interactive tele-video, patient was identified by name and date of and/or wristband check.Patient (or authorized healthcare technical support representative) was informed that this was a telemedicine visit and it was being conducted confidentially over secure lines. My office door was closed and no one else was present in the room with me.Patient (or authorized healthcare technical support representative) provided consent to proceed with the visit, expressed an understanding of privacy and security of the telemedicine visit, and gave permission to have a hospital technical support representative in the room in order to assist with the visit and to conduct portions of the visit, as needed. I informed the patient (or authorized healthcare technical support representative) that I reviewed their record and presented the opportunity for them to ask any questions regarding the visit today. The patient agreed to participate. History of Present Illness Reason for Consultation: altered mental status Requesting Physician: Speedy Canchola MD Attending Physician: Speedy Canchola MD History of Present Illness Mr Roshan Nolan is a 63-year-old male patient with a PMH of type II DM, HLP, HTN, hypophosphatemia, absence seizure's, history of lung cancer, who was sent from a rehab facility after being hospitalized in [facility] from 11/2019 5-08 11 2024 for bilateral lower extremity cellulitis more affecting the right foot. MRI was negative for osteomyelitis with cellulitis and possible abscess. He was also treated my Tamiflu for influenza while he was at [place]. , Was initially treated with Ancef and developed throat fever, was started on vancomycin via PICC line. Then will switch to ceftriaxone Was sent to the emergency on 218 for worsening mental status. The patient was seen by ID who recommended daptomycin or cefepime was continued. The patient was noted to be encephalopathic he is lethargic sleepy, would wake up, appears disoriented, follows commands intermittently, appears to be moving all 4 extremities equally. Allergies Allergy/AdvReac Type Severity Reaction Status Date / Time cefazolin Allergy Intermediate Rash Verified 08/14/24 23:14 Home Medications Medication Instructions Recorded Confirmed Type Lactobacillus acidophilus 10 10,000 mmu cells PO DAILY 08/14/24 08/14/24 History billion cell capsule (Probiotic) aspirin 81 mg tablet,delayed 81 mg PO DAILY 08/14/24 08/14/24 History release atenolol 100 mg tablet 100 mg PO DAILY 08/14/24 08/14/24 History atorvastatin 20 mg tablet 20 mg PO DAILY 08/14/24 08/14/24 History bisacodyl 10 mg rectal suppository 10 mg LA DAILY PRN Constipation 08/14/24 08/14/24 History (Dulcolax (bisacodyl)) ceftriaxone 1 gram intravenous 1 g IV DAILY 08/14/24 08/14/24 History solution cyanocobalamin (vitamin B-12) 500 500 mcg PO DAILY 08/14/24 08/14/24 History mcg tablet empagliflozin 25 mg tablet 25 mg PO DAILY 08/14/24 08/14/24 History gabapentin 300 mg capsule 600 mg PO HS 08/14/24 08/14/24 History hydroxyzine HCl 10 mg tablet 10 mg PO HS PRN Anxiety 08/14/24 08/14/24 History lamotrigine 100 mg tablet 100 mg PO BID 08/14/24 08/14/24 History (Lamictal) lisinopril 20 mg tablet 20 mg PO DAILY 08/14/24 08/14/24 History metformin 500 mg tablet 500 mg PO BID 08/14/24 08/14/24 History multivitamin with minerals 1 tab PO DAILY 08/14/24 08/14/24 History ondansetron 4 mg disintegrating 4 mg PO Q8H PRN Nausea And Vomiting 08/14/24 08/14/24 History tablet oxycodone 5 mg tablet 5 mg PO Q6H PRN Severe Pain (Scale 08/14/24 08/14/24 History Score 7-10) vancomycin 1,000 mg intravenous 1 g IV UD 08/14/24 08/14/24 History injection Patient History Social History Smoking Status: Never smoker Hx Alcohol Use: No Hx Substance Use: No Preferred Language: Taiwanese Communication Ability: Impaired Process Improvement Consultant Required: No Beliefs That Will Affect Care: None Current Living Situation: Personal Care Facility Current Living Situation Comment: Lives at [facility] currently Other Information That Helps Us Care for You: No Feels Safe at Home: Yes Safety Concerns: Feels Safe At This Time Assistive Devices: None Review of Systems Cannot be obtained Physical Exam General Constitutional: Appearance normally developed Head and face: normocephalic and atraumatic Eyes: no ptosis, no anisocoria, and no dysconjugate gaze Respiratory: normal effort Cardiovascular: regular rhythm and regular rate Abdomen: Obese Skin: no rashes, lesions, or ulcers noted Psychiatric: Confused irritable NEUROLOGIC EXAMINATION: Mental Status: Sleeping after the reported arousable, able to say his name, disoriented to place and time Cranial Nerves: CN 2 -did not comply CN 3, 4, 6 - extra-ocular movements intact and no nystagmus CN 5 - facial sensation intact CN 7 - no facial asymmetry CN 8 - intact hearing CN 9, 10 - palate symmetric, normal gag CN 11 - good shoulder shrug CN 12 - tongue midline MOTOR: Appears to be moving all 4 extremities symmetrically SENSATION: intact and symmetric to pinprick, light touch, vibration and joint position GAIT: Deferred COORDINATION: Did not comply REFLEXES: cannot assess over telemedicine Results & Data Vital Signs (Past 12 Hours) Vital Signs Temp Pulse Resp BP Pulse Ox O2 Del Method O2 Flow Rate 08/16/24 15:55 93 H 18 135/69 95 Nasal Cannula 4 08/16/24 11:15 36.5 C 90 18 142/57 H 99 Nasal Cannula 4 08/16/24 11:02 Nasal Cannula 3 08/16/24 07:13 37.1 C 92 H 18 127/71 97 Nasal Cannula 3 Laboratory Results Abnormal lab results 08/14/24 08/15/24 08/15/24 Range/Units 23:54 16:31 17:39 VBG pH (7.36-7.41) VBG pCO2 (38-50) mmHg Chloride (98-107) mmol/L Anion Gap (3-11) BUN (6-23) mg/dl Creatinine (0.6-1.4) mg/dl BUN/Creatinine Ratio (10-20) Glucose (70-99(Fasting)) mg/dl POC Glucose 101 H (70-99) mg/dl Total Bilirubin (0.2-1.0) mg/dl AST (13-39) U/L ALT (7-52) U/L Alkaline Phosphatase (34-104) U/L Troponin I High Sens 23.8 H (0-20) pg/ml Total Protein (6.0-8.3) gm/dl Albumin (3.4-5.0) gm/dl Albumin/Globulin Ratio (0.9-2) Procalcitonin (0-0.5) ng/ml Random Vancomycin 36.1 H* (10-20) mcg/ml 08/16/24 08/16/24 08/16/24 Range/Units 05:43 10:33 16:08 VBG pH 7.26 L (7.36-7.41) VBG pCO2 29 L (38-50) mmHg Chloride 113 H (98-107) mmol/L Anion Gap -1 L (3-11) BUN 28 H (6-23) mg/dl Creatinine 4.21 H (0.6-1.4) mg/dl BUN/Creatinine Ratio 6.7 L (10-20) Glucose 68 L (70-99(Fasting)) mg/dl POC Glucose 64 L* (70-99) mg/dl Total Bilirubin 2.2 H (0.2-1.0) mg/dl AST 91 H (13-39) U/L ALT 104 H (7-52) U/L Alkaline Phosphatase 199 H (34-104) U/L Troponin I High Sens (0-20) pg/ml Total Protein 5.8 L (6.0-8.3) gm/dl Albumin 2.1 L (3.4-5.0) gm/dl Albumin/Globulin Ratio 0.6 L (0.9-2) Procalcitonin > 100.00 H (0-0.5) ng/ml Random Vancomycin 26.2 H* (10-20) mcg/ml 08/16/24 Range/Units 16:19 VBG pH (7.36-7.41) VBG pCO2 (38-50) mmHg Chloride (98-107) mmol/L Anion Gap (3-11) BUN (6-23) mg/dl Creatinine (0.6-1.4) mg/dl BUN/Creatinine Ratio (10-20) Glucose (70-99(Fasting)) mg/dl POC Glucose 55 L* (70-99) mg/dl Total Bilirubin (0.2-1.0) mg/dl AST (13-39) U/L ALT (7-52) U/L Alkaline Phosphatase (34-104) U/L Troponin I High Sens (0-20) pg/ml Total Protein (6.0-8.3) gm/dl Albumin (3.4-5.0) gm/dl Albumin/Globulin Ratio (0.9-2) Procalcitonin (0-0.5) ng/ml Random Vancomycin (10-20) mcg/ml Diagnostic Findings Duplex Scan Lower Extremity Artery 08/15/24 16:24 Exam(s): US ARTERIAL RIGHT LOWER EXTREMITY EXAM: US Duplex Right Lower Extremity Arteries CLINICAL HISTORY: Slow wound healing diabetic ulcer right foot. TECHNIQUE: Real-time duplex ultrasound scan of the right lower extremity arteries integrating B-mode two-dimensional vascular structure, Doppler spectral analysis and color flow Doppler imaging. COMPARISON: No relevant prior studies available. FINDINGS: Right common femoral artery: Multiphasic waveforms. No significantly elevated duplex velocities. The peak systolic velocity is 103 cm/s. Right superficial femoral artery: Multiphasic waveforms. No significantly elevated duplex velocities. The peak systolic velocities ranging between 123 cm/s proximally, 113 cm/s at the mid segment and 107 cm/s distally. Right popliteal artery: Multiphasic waveforms. No significantly elevated duplex velocities. The peak systolic velocities between 99 and 93 cm/s. Right calf/foot arteries: Right trifurcation: The right posterior tibial artery is patent with multiphasic waveforms and peak systolic velocities between 86, 102 and 110 cm/s. The peroneal artery was interrogated with biphasic to multiphasic waveforms and peak systolic velocities between 90 and 74 cm/s. The anterior tibial artery is patent with multiphasic waveforms and peak systolic velocities between 72 and 103 cm/s. The dorsalis pedis artery demonstrates multiphasic waveforms. Other arteries: Right profunda femoral artery: Biphasic waveforms. No significantly elevated duplex velocities. The peak systolic velocity is 112 cm/s. Soft tissues: Unremarkable. IMPRESSION: Negative right lower extremity arterial evaluation. No occlusion or significant hemodynamic stenosis with multiphasic waveforms throughout. Electronically signed by: Donald Head MD 08/15/24 21:45 PM Medications Administered Home Medications Medication Instructions Recorded Confirmed Last Taken Lactobacillus acidophilus 10 10,000 mmu cells PO DAILY 08/14/24 08/14/24 Unknown billion cell capsule (Probiotic) aspirin 81 mg tablet,delayed 81 mg PO DAILY 08/14/24 08/14/24 Unknown release atenolol 100 mg tablet 100 mg PO DAILY 08/14/24 08/14/24 Unknown atorvastatin 20 mg tablet 20 mg PO DAILY 08/14/24 08/14/24 Unknown bisacodyl 10 mg rectal suppository 10 mg LA DAILY PRN Constipation 08/14/24 08/14/24 Unknown (Dulcolax (bisacodyl)) ceftriaxone 1 gram intravenous 1 g IV DAILY 08/14/24 08/14/24 Unknown solution cyanocobalamin (vitamin B-12) 500 500 mcg PO DAILY 08/14/24 08/14/24 Unknown mcg tablet empagliflozin 25 mg tablet 25 mg PO DAILY 08/14/24 08/14/24 Unknown gabapentin 300 mg capsule 600 mg PO HS 08/14/24 08/14/24 Unknown hydroxyzine HCl 10 mg tablet 10 mg PO HS PRN Anxiety 08/14/24 08/14/24 Unknown lamotrigine 100 mg tablet 100 mg PO BID 08/14/24 08/14/24 Unknown (Lamictal) lisinopril 20 mg tablet 20 mg PO DAILY 08/14/24 08/14/24 Unknown metformin 500 mg tablet 500 mg PO BID 08/14/24 08/14/24 Unknown multivitamin with minerals 1 tab PO DAILY 08/14/24 08/14/24 Unknown ondansetron 4 mg disintegrating 4 mg PO Q8H PRN Nausea And Vomiting 08/14/24 08/14/24 Unknown tablet oxycodone 5 mg tablet 5 mg PO Q6H PRN Severe Pain (Scale 08/14/24 08/14/24 Unknown Score 7-10) vancomycin 1,000 mg intravenous 1 g IV UD 08/14/24 08/14/24 Unknown injection Active Medications Generic Name Dose Route Start Last Admin Trade Name Freq PRN Reason Stop Dose Admin Aspirin 81 mg 08/15/24 09:00 08/16/24 08:18 Aspirin 81 Mg Ectab PO 09/14/24 08:59 Not Given DAILY ANDREI Atenolol 100 mg 08/15/24 09:00 08/16/24 08:18 Atenolol 50 Mg Tablet PO 09/14/24 08:59 Not Given DAILY ANDREI Cyanocobalamin 500 mcg 08/15/24 09:00 08/16/24 08:18 Cyanocobalamin (B-12) 500 Mcg Tablet PO 09/14/24 08:59 Not Given DAILY ANDREI Dextrose 25 - 50 ml 08/14/24 23:10 08/16/24 16:28 Dextrose 50% 50 Ml Syringe IV 09/13/24 23:09 25 ml UD PRN Administration Hypoglycemia Protocol Protocol Ferrous Sulfate 325 mg 08/15/24 09:00 08/16/24 08:18 Ferrous Sulfate 325 Mg Tab PO 09/14/24 08:59 Not Given QAM ANDREI Heparin Sodium (Porcine) 5,000 units 08/15/24 00:00 08/16/24 16:29 Heparin Sod 5,000 Unit/0.5 Ml Vial SQ 09/14/24 00:00 5,000 units Q8H ANDREI Administration Cefepime HCl 1,000 mg in 10 mls @ 5 mls/min 08/15/24 09:00 08/16/24 08:00 Maxipime 2000mg IV 08/22/24 08:59 5 mls/min Q12H ANDREI Administration Protocol Acetaminophen 1,000 mg in 100 mls @ 400 mls/hr 08/14/24 23:10 08/15/24 20:12 Ofirmev IV 08/17/24 23:09 Infused Q8H PRN Infusion Pain or Fever Sodium Chloride 1,000 mls @ 100 mls/hr 08/15/24 23:15 08/16/24 08:01 Nss IV 08/16/24 23:14 100 mls/hr .Q10H ANDREI Administration Thiamine HCl 100 mg/ Syringe 10 mls @ 2 mls/min 08/16/24 13:45 08/16/24 15:29 IV 09/15/24 13:44 2 mls/min QAM ANDREI Administration Insulin Aspart 0 units 08/15/24 07:30 08/16/24 16:29 Insulin Aspart Per Unit Charge SC 09/14/24 07:29 Not Given ACHS ANDREI Lactobacillus Acidophilus 1,250 mg 08/15/24 09:00 08/16/24 08:18 Advanced Probiotic 625 Mg Capsule PO 09/14/24 08:59 Not Given DAILY ANDREI Lamotrigine 100 mg 08/15/24 09:00 08/16/24 08:18 Lamotrigine 100 Mg Tab PO 09/14/24 08:59 Not Given BID [facility] Protocol Multivitamins 1 tab 08/15/24 09:00 08/16/24 08:18 Multivitamin Tab PO 09/14/24 08:59 Not Given DAILY ANDREI
--- NOTE | 2024-08-16 20:00 | Communication Note ---
Date of Service: August 16, 2024 Patient with episodic hypoglycemia. Poor oral intake as per RN. D5 NSS IVF for now
[2024-08-16] MEDS: D5W AND NSS 1,000 ML IV SCH (20:06)
--- NOTE | 2024-08-16 23:13 | Magnetic Resonance Report ---
Exam(s): MRI HEAD Without Contrast EXAM: MR Head Without Intravenous Contrast CLINICAL HISTORY: Altered mental status. TECHNIQUE: Magnetic resonance images of the head/brain without intravenous contrast in multiple planes. COMPARISON: CT head without contrast performed 08/14/2024 FINDINGS: Limitations: There is motion artifact, which degrades image quality on multiple sequences. Brain: Diffusion-weighted imaging is negative for acute or subacute infarct. No definite intracranial hemorrhage. No significant mass- effect. No cortical infarct. Ventricles: Unremarkable. No ventriculomegaly. Bones/joints: Unremarkable. No acute fracture. Sinuses: Unremarkable as visualized. No acute sinusitis. Mastoid air cells: Unremarkable as visualized. No mastoid effusion. Orbits: Unremarkable as visualized. IMPRESSION: No evidence of acute or subacute infarct. Electronically signed by: Donald Head MD 08/16/24 23:11 PM
[2024-08-16] MEDS ORDERED: SODIUM CHLORIDE 0.9% 1,000 ML IV SCH (23:15)
[2024-08-17 07:14] LABS: Hematocrit (blood only) 28.4 % (42.0-52.0); Mean Corpuscular Hemoglobin 29.3 pg (25.0-34.0); Mean Corpuscular Hgb Conc 31.7 g/dL (32.0-36.0); Mean Corpuscular Volume 92.5 fL (80.0-100.0); Mean Platelet Volume 8.9 fL (9.4-12.4); Nucleated RBC # (auto) 0.02 K/uL (0.00-0.12); Nucleated RBC % (auto) 0.2 %; Platelet Count 402 K/uL (130-400); RDW Coefficient of Variation 15.9 % (11.5-14.5); RDW Standard Deviation 53.2 fL (36.4-46.3); Red Blood Count 3.07 M/uL (4.70-6.10); White Blood Count 10.88 K/ul (4.8-10.8)
[2024-08-17 07:35] LABS: Albumin Globulin Ratio 0.6 (0.9-2); Albumin Level 2.1 gm/dl (3.4-5.0); BUN Creatinine Ratio 6.5 (10-20); Bilirubin,Total 2.2 mg/dl (0.2-1.0); Calcium 9.1 mg/dl (8.6-10.3); Creatinine Clr Calc Pharmacy 20.2 ml/min; Globulin 3.8 gm/dl (2.5-4.0); Magnesium 1.9 mg/dl (1.7-2.4); Potassium 3.9 mmol/L (3.5-5.1); Total Protein 5.9 gm/dl (6.0-8.3)
[2024-08-17 07:49] LABS: Thyroid Stimulating Hormone 18.999 uIu/ml (0.300-4.500)
--- NOTE | 2024-08-17 08:19 | Pharmacy Report ---
Pharmacy PK ABX Note - Date of Service August 17, 2024 - Assessment and Plan Initial Assessment 63 year old M receiving vancomycin prior to admission for osteomyelitis. Was previously at OSH from 08/02-08/11 where he had initially been started on ancef x 6 weeks for osteomyelitis with MSSA, however developed rash and changed to vancomcyin on 08/07. Discharged to [facility] on 08/11 and Scr started rising since then. Scr up to 4.45 mg/dL on admission. Patient also with continued fevers, shortness of breath. Random vancomycin level collected last evening - came back supratherapeutic at ~36 mcg/ml. Estimated t 1/2 ~33 hours based upon current renal function. Discussed with pro vider supratherapeutic level for vancomycin and plan to hold doses of vancomycin today. Will order another random vancomycin level tomorrow to assess clearance and an alternative agent will be considered. ID consulted - will await recommendations Plan 08/17/24: * Random level for vancomycin this AM ~21 mcg/ml - Scr remains unchanged. Anticipate level to remain >15 for another 24 hours * Will continue to hold vancomycin. Per ID notes, plan is to change to daptomycin once vancomycin level closer to ~15 mcg/ml * Level for vancomycin ordered by provider for tomorrow AM to evaluate further clearance 08/16/24: * Patients random vancomycin levels continue to be supratherapeutic this morning therefore will continue holding vancomycin in the setting of JUANA. * With patients predicted half life, he will likely continue to be therapeutic for another 24 hours; will reassess tomorrow with vancomycin random level ordered with AM labs. 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 Thank you. Pharmacy has transitioned to AUC monitoring for vancomycin. AUC/PATTI is the preferred PK/PD target and is associated with decreased risk of nephrotoxicity compared to traditional trough targets.
[2024-08-17 08:23] LABS: T4 Free Thyroxine 1.17 ng/dl (0.61-1.60)
--- NOTE | 2024-08-17 10:22 | Nephrology Progress Note ---
Date of Service August 17, 2024 Assessment & Plan Admission and Anticipated Discharge Date Admission Date: August 14, 2024 Subjective Assessment & Plan (1) JUANA (acute kidney injury): Sudden severe JUANA from ATN with Sepsis. ATN could be Ischemic or toxic in the setting of Sepsis/vanco. From normal creat went to 4.5 within a span of 72 hrs. However since then No further rise. Also making urine and no major issues with fluid overload and/or lytes. Obstruction already ruled out. Continue IV --100 ml/hr of D5NS. We will need to start slowing down iv fluids from tomorrow I and O charting. Daily renal panel and CBC. maintain good hemodynamics. Hold metformin, Jardiance, Lisinopril. No NSAIDS, no contrast agents or Diuretics for now. As much as possible use alternate Abx--no vancomycin. Creat very slightly lower than yesterday but he is making slightly more urine so somewhat hopeful that ATN has likely peaked. No dialysis needed today however he is not out of danger yet given he is still very sick and not in full recovery path. (2) Sepsis: Source is diabetic Ulcer with recent complications. he seems very confused. Reviewed neuro note also. S--no new issues. Vital signs are acceptable. Making urine--628 ml yesterday-> than prior day ROS---Unable to obtain as patient did not open eyes. He appeared to be sick. febrile Physical Exam Physical Exam: General Appearance: mild distress, confused Head: normocephalic, Atraumatic Neck: supple, Respiratory/Chest: Normal breath sounds, Clear, No accessory muscle use Cardiovascular: S1, S2, No murmur Abdomen/GI:Soft, Non tender, Extremities/Musculoskeletal:normal inspection, 1+ B/L LE edema, erythema, R great toe s/p amputation, R foot ulcer Results & Data Vital Signs (Past 12 Hours) Vital Signs Temp Pulse Pulse Resp BP BP Pulse Ox 08/17/24 07:48 86 23 157/76 H 97 08/17/24 06:00 99 H 08/17/24 03:45 37.1 C 88 22 139/88 97 08/16/24 22:50 36.8 C 109 H 20 149/104 H 97 O2 Del Method O2 Flow Rate 08/17/24 07:48 Nasal Cannula 4 08/17/24 06:00 08/17/24 03:45 Nasal Cannula 4.0 08/16/24 22:50 Nasal Cannula 4
--- NOTE | 2024-08-17 12:52 | Podiatry Progress Note ---
Date of Service August 17, 2024 Assessment & Plan (1) Diabetic ulcer of right foot associated with diabetes mellitus due to underlying condition, with bone involvement without evidence of necrosis: (2) Cellulitis of right lower extremity: (3) Cellulitis of left lower extremity: Plan Diabetic ulcer right foot, bilateral lower extremity cellulitis. Wound is probed again today and unable to find any direct probe to bone or fluid collection within or in the proximity of the wound base. Sanguinous drainage only. X-rays right throat 3 views 08/15/2024: Plain film radiographs reviewed with no radiographic signs of osteomyelitis. Right lower extremity duplex arterial ultrasound 08/15/2024:IMPRESSION: Negative right lower extremity arterial evaluation. No occlusion or significant hemodynamic stenosis with multiphasic waveforms throughout. -Will Cancel MRI order at this time. ID recommendations reviewed. Plan in place to continue IV antibiotics for the management of right foot right foot osteomyelitis. Weightbearing status: Patient remain nonweightbearing right foot. Will likely have patient fit with offloading cam walker prior to discharge. Wound dressing right foot: Change dressing once daily. Flushed wound with normal sterile saline, dry and dress with Aquacel Ag and a DSD. ID recommendations were reviewed. Was been difficult to obtain MRI of the right lower extremity given patient's inability to remain still for the study. MRI results from [place] reviewed with no MRI findings of osteomyelitis in the right foot. Because patient is going to be managed for osteomyelitis with 6 weeks of IV antibiotics no tremendous advantage to reevaluating the foot with a repeat MRI. Will cancel MRI for now. No plan for surgical debridement or bone biopsy. Will continue with local wound care. Discussed patient's case with hospitalist team. Discussed care of his foot with his family including his mother and 2 female family members outside the room today. He will need close follow-up in a wound care center either in [place] or here in [place] following discharge for the continued care of the right foot. Thank you for consulting podiatry to aid in the care of this patient. Admission and Anticipated Discharge Date Admission Date: August 14, 2024 Review of Systems Review of Systems: Unable to obtain due to pts condition. No fever over the past 24hrs. Physical Exam Physical Exam: Appears well developed and well nourished. Patient is restless while laying in bed without appearing agitated. In and out of sleep during evaluation. CV: Extremities: No cyanosis Capillary refill time is less than 3-4 seconds all digits of the bilateral foot. Posterior tibial and dorsalis pedis pulses are non-palpable bilateral. Skin: Thin atrophic skin with loss of hair growth below the knee. Neuro: Loss of protective sensation to the bilateral foot as tested with Lennon Bridger 5.07 monofilament. Psych: Mood/Affect: Mood is normal. Affect is normal. Focused lower extremity musculoskeletal exam: Leg: No pain with compression of the calf muscle. Ankles: Normal to inspection and palpation. No tenderness bilaterally. Motor strength is intact. Range of motion pain-free with limited dorsiflexion of the ankle bilateral. Feet: History of partial first ray amputation right foot. Plantar ulceration of the midfoot right foot. There is a fading X marked on the dorsal aspect of both feet this am assuming is where they were able to find a dorsalis pedis pulse with the bedside Doppler during his previous hospital stay. Ulcer right foot: Ulcer to the plantar medial right midfoot with mixed granular phlegmon tissue to the wound bed. Wound probes 3 cm proximal and distal to the superficial opening. There is a firm endpoint to the base of the wound which possibly represents periosteum versus joint capsule versus dense fascial tissue. No janae probe to bone identified within the wound bed. Sanguinous drainage on evaluation with scant genaro-colored serous drainage to the dressing noted. No notable malodor. mild periwound erythema and edema. Bilateral leg below the knee is erythematous with thin atrophic skin. No apparent wound to the left foot. Results & Data Results & Data Vital Signs (Past 12 Hours) Vital Signs Temp Pulse Pulse Resp BP Pulse Ox O2 Del Method 08/17/24 11:08 100 H 29 H 188/89 H 100 Nasal Cannula 08/17/24 10:54 86 08/17/24 07:48 86 23 157/76 H 97 Nasal Cannula 08/17/24 06:00 99 H 08/17/24 03:45 37.1 C 88 22 139/88 97 Nasal Cannula O2 Flow Rate 08/17/24 11:08 4 08/17/24 10:54 08/17/24 07:48 4 08/17/24 06:00 08/17/24 03:45 4.0 [place] [address] SUB INP/OBS CARE 2/35MIN Patient Type New Diagnoses Diabetic ulcer of right midfoot associated with diabetes mellitus due to underlying condition, with bone involvement without evidence of necrosis E08.621; L97.416 Diabetic foot ulcer location: midfoot Cellulitis of right lower extremity L03.115 Cellulitis of left lower extremity L03.116 (1) Diabetic ulcer of right foot associated with diabetes mellitus due to underlying condition, with bone involvement without evidence of necrosis Diabetic foot ulcer location: midfoot Qualified Code(s): E08.621 - Diabetes mellitus due to underlying condition with foot ulcer; L97.416 - Non-pressure chronic ulcer of right heel and midfoot with bone involvement without evidence of necrosis
--- NOTE | 2024-08-17 13:00 | Electrocardiogram Report ---
Test Reason : Blood Pressure : */* mmHG Vent. Rate : 99 BPM Atrial Rate : 99 BPM P-R Int : 176 ms QRS Dur : 98 ms QT Int : 362 ms P-R-T Axes : 65 4 63 degrees QTcB Int : 464 ms Normal sinus rhythm Low voltage QRS Abnormal ECG Confirmed by Quintin Martínez ([id number]) on 08/17/2024 12:59:44 PM Referred By: REFERRED SELF Confirmed By: Quintin Martínez
[2024-08-17 13:17] LABS: INR 2.7 (0.9-1.1); Prothrombin Time 26.5 Seconds (9.0-12.0)
[2024-08-17 14:30] LABS: iSTAT Arterial Blood Gas HCO3 14 meg/L (19-24); iSTAT Arterial Blood Gas pCO2 27 mmHg (35-46); iSTAT Arterial Blood Gas pH 7.33 (7.35-7.45); iSTAT Arterial Blood Gas pO2 28 mmHg (80-95); iSTAT Carbon Dioxide 15 mmol/L (24-31); iSTAT Hematocrit 23 % (42-52); iSTAT Hemoglobin 7.8 g/dl (14.0-18.0); iSTAT Potassium 3.8 mmol/L (3.3-5.0); iSTAT Sample Type Arterial; iSTAT Sodium 145 mmol/L (135-144)
--- NOTE | 2024-08-17 15:11 | XRay Report ---
XR chest 1V portable CLINICAL HISTORY: Hypoxia COMPARISON STUDY: 08/14/2024 FINDINGS: The study is compromised by respiratory motion. There is a right-sided PICC line with the t ip not visible. There is continued elevation of the right hemidiaphragm with adjacent discoid atelect asis. The left lung is grossly clear. Mild cardiomegaly and pulmonary vascular congestion are persist ent. IMPRESSION: Stable exam; no acute process identified. ACT 112: Negative or not required by law. Electronically signed by: Deanna Rodríguez M.D. 08/17/2024 3:10 PM
--- NOTE | 2024-08-17 15:23 | CT Scan Report ---
CT head/brain wo con CLINICAL HISTORY: Altered mental status. TECHNIQUE: Multiple axial CT images of the head were obtained without contrast. Sagittal and coronal reconstructions were done. A dose lowering technique was utilized adhering to the principles of KIRA Parra. CT DOSE: 2199.31 mGy.cm COMPARISON: 08/14/2024 FINDINGS: Some motion degradation is present. The been no significant interval change since the prior examination. There is no intra-axial or extra-axial fluid collection, hemorrhage, or mass. There is no midline shift. The ventricles and sulci are age-appropriate. The bone windows are grossly negative . IMPRESSION: Stable exam; no acute intracranial process identified. ACT 112: Negative or not required by law. The above report was generated using voice recognition software. It may contain grammatical, syntax o r spelling errors. Electronically signed by: Deanna Rodríguez M.D. 08/17/2024 3:22 PM
--- NOTE | 2024-08-17 15:39 | CT Scan Report ---
CT OF THE ABDOMEN AND PELVIS WITHOUT CONTRAST CLINICAL HISTORY: Abdominal pain. COMPARISON STUDY: CT of the abdomen and pelvis August 14, 2024. TECHNIQUE: Axial images of the abdomen and pelvis were obtained without IV contrast. Images were revi ewed in the axial, sagittal, and coronal planes. Automated exposure control was utilized for the mariana dy. A dose lowering technique was utilized adhering to the principles of ALARA. FINDINGS: Small right and trace left pleural effusions are present. Subpleural opacities favor atelec tasis. This exam is compromised given motion artifact and lack of IV contrast. There is severe hepati c steatosis. Hepatomegaly is noted. There is no pneumatosis, free air or portal venous gas. Small eliza unt of ascites within the pelvis is present. Unenhanced images of the spleen, adrenal glands, kidneys and pancreas are unremarkable with exception of a suspected left lower pole renal cyst. There is no evidence for a bowel obstruction. A Sarmiento balloon within the bladder is present. Body wall edema sugg esting anasarca. No fluid collections are identified. There are no urinary calculi. There is no hydro nephrosis. There is no lymphadenopathy. No peripancreatic or pericholecystic infiltration is present. IMPRESSION: 1. Exam compromised given lack of IV contrast and motion artifact. 2. No bowel obstruction. 3. Severe hepatic steatosis. Hepatomegaly. 3. Anasarca. Small right and trace left pleural effusions. Small amount of ascites within the pelvis. ACT 112: Negative or not required by law. Electronically signed by: Dewey Jorge M.D. 08/17/2024 3:37 PM
--- NOTE | 2024-08-17 16:38 | Hospitalist Progress Note ---
Date of Service August 17, 2024 Assessment & Plan (1) Sepsis: Plan: 63-year-old male with past medical history significant for type 2 diabetes, diabetic ulcer of right midfoot, dyslipidemia, hypophosphatemia, hypertension, history of C. difficile colitis, oral thrush, cellulitis of right leg, abscess of right foot, absent seizures, history of lung cancer, was sent in by [facility] rehab because of confusion and fevers. Patient was in [facility] from 08/02/2024 to 08/11/2024. He was admitted to the [facility] for right foot swelling and rednesss and fevers. And right foot x-ray showed healed fracture through the midshaft of second metatarsal bone with calcified bridging callus. Pes planus. He was admitted for right foot infection. MRI of the foot was negative for osteomyelitis and showed cellulitis and possible abscess. Status post I&D by podiatry at bedside on August 03 with a deep purulence obtained and sent for culture. Status post I&D with podiatry for sepsis on August 06 and probe to bone very favorable and no clear abscess as suggested by CT scan. During hospital stay he was also completed Tamiflu for influenza. ID suggested Ancef until September 17 and to treat as osteomyelitis for MSSA on wound cultures with 6 weeks of IV antibiotics. On August 07 patient had rash thought to be from Ancef. Rash was worsening after second dose of Ancef and patient was having fevers that thought to be lined up from Ancef doses and was thought possible drug fever. And ID recommended IV Vanco via PICC line. Vancomycin dosing goal AUC 400-600 Mg/liter/hour. And patient was discharged to [facility] on 08/11/2024. At [facility] patient was still having fevers and shortness of breath and erythema around his wound ,does not appear to be receding thought to be spreading. [facility] made ID aware. As per the med rec from the [facility] seems patient had Rocephin. And was sent to our ER today because of fever and altered mental status. Patient can tell his name. Knows that he is in the hospital. Could tell his date of . But could not tell current dates. Denies any cough. Denies headache. Denies chest pain. Denies shortness of breath. Denies belly pain. Status post Guillermina in the ER. Patient seems poor historian at this time. No sacral ulcer seen. Sepsis Bilateral lower extremity cellulitis Right foot diabetic ulcer Recently on [facility] was placed on IV Vanco for 6 weeks until September 17 to treat his osteomyelitis though MRI was negative and abscess was I&D by podiatry at [facility] --Right Foot X ray: No definite radiographic evidence of osteomyelitis as desc ribed. --Venous Doppler:No evidence of deep venous thrombus within the bilateral lower extremities. --Arterial Doppler:Negative right lower extremity arterial evaluation. No occ lusion or significant hemodynamic stenosis with multiphasic waveforms throughout. --CT ABD:No bowel obstruction. Severe hepatic steatosis. Hepatomegaly. Anasarca. Small amount of ascites within the pelvis. -- Blood cultures negative to date -- Urine culture: 10,000 colonies of Heather glabrata IV cefepime discontinued as recommended by infectious disease/neurology Gentle IV fluids, monitor volume status closely Avoid IV Vanco as trough level high, JUANA Appreciate infectious disease input: Once Vanco trough drops < 15 will start the patient on IV daptomycin. (Will renally dose IV daptomycin through 09/17/24) Appreciate Podiatry Input : Given ongoing treatment, will defer MRI foot for now Continue local wound care Aspiration precautions Vanco trough 21.4 today Closely monitor for hemodynamics, low threshold to transfer to ICU if deteriorates Acute metabolic encephalopathy Likely due to above infection Suspected urinary tract infection--Less likely --Head CT:No acute findings in the head/brain. --Urine culture: as above --MRI Brain:No evidence of acute or subacute infarct. Reorient frequently to minimize delirium Repeat CT head showed no acute process -Normal ammonia level -VBG showed no hypercarbia -TSH elevated, normal free T4 --Thiamine B1 level pending EEG pending Lamictal levels pending Drug screen pending Could not get lumbar puncture due to elevated INR/patient agitated Acute kidney injury likely ATN/toxic secondary to infection, vancomycin Cr: 4.4>4.1 Creatinine was 1.6 on 08/12/2024 --CT ABD:Mild nonspecific perinephric stranding. No hydronephrosis. Simple 2 cm left renal cyst. No follow-up of this simple cyst is necessary. Avoid nephrotoxic agents as able Monitor renal function, urinary output Appreciate nephrology input Continue IV fluids per nephrology Bladder scan as needed Metformin, Jardiance, lisinopril on hold Avoid NSAIDs Monitor for volume overload Transaminitis Likely due to sepsis, fatty liver --CT ABD:Hepatic steatosis. Hepatomegaly. Minimal free fluid around the liver and in the pelvis. Monitor LFTs Hold Lipitor for now LFTs better Hyponatremia Resolved Sodium levels improved 145 today Monitor Anemia Iron deficiency anemia Anemia of chronic disease No obvious signs of bleeding Vit B12, folate levels reviewed Monitor CBC Started on iron supplements Hypertension Hold lisinopril Continue atenolol with holding parameters Monitor DM II Hold home medications Adjust insulin per protocol to minimize hypoglycemic episodes Monitor blood glucose levels Hyperlipidemia Hold statin due to elevated LFTs History of seizures On Lamictal Remote history of lung cancer Treated with chemo as per records DVT Px: Heparin SQ Code Status Full code Disposition To be determined Admission and Anticipated Discharge Date Admission Date: August 14, 2024 Subjective Patient is seen and examined at bedside Remains very lethargic Unable to obtain history Discussed multiple times with patient's family at bedside and over the phone Requested neurology to reevaluate today Also discussed with infectious disease and nephrology today Toxicology screen pending Developing volume overload on CT abdomen Requiring 5 L of oxygen to maintain saturations Chest x-ray today showed no acute process Blood, urine cultures remain negative Review of Systems Review of Systems: Unobtainable due to reduced consciousness Physical Exam Physical Exam: Physical Exam: Vitals signs as noted above General Appearance:Moderately built and nourished, mild distress, confused , Lethargic Head: normocephalic, Atraumatic Eyes: normal inspection, EOMI Neck: supple, Trachea midline Respiratory/Chest: Normal breath sounds, CTA, No accessory muscle use Cardiovascular: S1, S2, No murmur Abdomen/GI:Soft, Non tender, Bowel sounds present, protuberant Extremities/Musculoskeletal:normal inspection, 1-2+ B/L LE edema, erythema, R great toe s/p amputation, R foot ulcer Neurologic/Psych:Lethargic, grossly no focal neurological deficits Skin: normal color, warm Results & Data Results & Data Vital Signs (Past 12 Hours) Vital Signs Temp Pulse Pulse Resp BP BP Pulse Ox 08/17/24 15:22 36.4 C L 96 H 26 H 123/66 99 08/17/24 15:09 100 H 08/17/24 14:14 36.9 C 96 H 28 H 95 08/17/24 13:29 36.9 C 08/17/24 11:08 100 H 29 H 188/89 H 100 08/17/24 10:54 86 08/17/24 08:00 08/17/24 07:48 86 23 157/76 H 97 08/17/24 06:00 99 H O2 Del Method O2 Flow Rate 08/17/24 15:22 Nasal Cannula 5 08/17/24 15:09 08/17/24 14:14 Nasal Cannula 4 08/17/24 13:29 08/17/24 11:08 Nasal Cannula 4 08/17/24 10:54 08/17/24 08:00 Nasal Cannula 4 08/17/24 07:48 Nasal Cannula 4 08/17/24 06:00 Laboratory Results Short CBC 08/17/24 Range/Units 06:53 WBC 10.88 H (4.8-10.8) K/ul Hgb 9.0 L (14.0-18.0) g/dl Hct 28.4 L (42.0-52.0) % Plt Count 402 H (130-400) K/uL BMP 08/17/24 06:53 Sodium 141 Potassium 3.9 Chloride 118 H Carbon Dioxide 21 BUN 27 H Creatinine 4.15 H Glucose 118 H Calcium 9.1 Liver Function 08/17/24 Range/Units 06:53 Total Bilirubin 2.2 H (0.2-1.0) mg/dl AST 88 H (13-39) U/L ALT 104 H (7-52) U/L Alkaline Phosphatase 193 H (34-104) U/L Albumin 2.1 L (3.4-5.0) gm/dl
[2024-08-17 17:39] LABS: Amphetamines+Metham, Urine Neg (Neg); Barbiturates, Urine Neg (Neg); Benzodiazepine, Urine Neg (Neg); Cocaine, Urine Neg (Neg); Fentanyl, Urine Neg (Neg); MDMA (Ecstacy), Urine Neg (Neg); Marijuana, Urine Neg (Neg); Methadone, Urine Neg (Neg); Opiate, Urine Neg (Neg); Phencyclidine, Urine Neg (Neg)
--- NOTE | 2024-08-17 19:35 | Neurology Progress Note ---
Date of Service August 17, 2024 Assessment & Plan (1) Encephalopathy: Encephalopathy likely due to sepsis however given protracted duration. With differential diagnosis including seizures and given history of absence seizures, EEG could not be obtained today Plan Recommend loading the patient with valproic acid 20 mg/kg IV.. EEG when possible. Attempt an LP to look for HSV 1 the patient is less agitated. 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 After connecting through interactive tele-video, patient was identified by name and date of and/or wristband check.Patient (or authorized healthcare special service representative) was informed that this was a telemedicine visit and it was being conducted confidentially over secure lines. My office door was closed and no one else was present in the room with me.Patient (or authorized healthcare special service representative) provided consent to proceed with the visit, expressed an understanding of privacy and security of the telemedicine visit, and gave permission to have a hospital special service representative in the room in order to assist with the visit and to conduct portions of the visit, as needed. I informed the patient (or authorized healthcare special service representative) that I reviewed their record and presented the opportunity for them to ask any questions regarding the visit today. The patient agreed to participate. The patient is sleeping, he is described to be moaning, and opens his eyes to verbal stimulation, can become agitated, he is on one-on-one sitter Review of Systems Cannot be obtained Physical Exam General Constitutional: Appearance normally developed Head and face: normocephalic and atraumatic Eyes: no ptosis, no anisocoria, and no dysconjugate gaze Respiratory: normal effort Cardiovascular: regular rhythm and regular rate Abdomen: Obese Skin: no rashes, lesions, or ulcers noted Psychiatric: Confused irritable NEUROLOGIC EXAMINATION: Mental Status: Sleeping after the reported arousable, able to say his name, disoriented to place and time Cranial Nerves: CN 2 -did not comply CN 3, 4, 6 - extra-ocular movements intact and no nystagmus CN 5 - facial sensation intact CN 7 - no facial asymmetry CN 8 - intact hearing CN 9, 10 - palate symmetric, normal gag CN 11 - good shoulder shrug CN 12 - tongue midline MOTOR: Appears to be moving all 4 extremities symmetrically SENSATION: intact and symmetric to pinprick, light touch, vibration and joint position GAIT: Deferred COORDINATION: Did not comply REFLEXES: cannot assess over telemedicine Results & Data Vital Signs (Past 12 Hours) Vital Signs Temp Pulse Pulse Resp BP BP Pulse Ox 08/17/24 18:57 36.6 C 84 19 148/77 H 96 08/17/24 15:22 36.4 C L 96 H 26 H 123/66 99 08/17/24 15:09 100 H 08/17/24 14:14 36.9 C 96 H 28 H 95 08/17/24 13:29 36.9 C 08/17/24 11:08 100 H 29 H 188/89 H 100 08/17/24 10:54 86 08/17/24 08:00 08/17/24 07:48 86 23 157/76 H 97 O2 Del Method O2 Flow Rate 08/17/24 18:57 Nasal Cannula 5 08/17/24 15:22 Nasal Cannula 5 08/17/24 15:09 08/17/24 14:14 Nasal Cannula 4 08/17/24 13:29 08/17/24 11:08 Nasal Cannula 4 08/17/24 10:54 08/17/24 08:00 Nasal Cannula 4 08/17/24 07:48 Nasal Cannula 4 Laboratory Results Laboratory Results - last 24 hr 08/16/24 08/17/24 08/17/24 19:53 06:53 07:53 WBC 10.88 H RBC 3.07 L Hgb 9.0 L POC Hgb Hct 28.4 L POC Hct MCV 92.5 MCH 29.3 MCHC 31.7 L RDW Std Deviation 53.2 H RDW Coeff of Eladio 15.9 H Plt Count 402 H MPV 8.9 L Absolute Nucleated RBC 0.02 Nucleated RBC % (auto) 0.2 PT INR Specimen Type POC pH POC pCO2 POC pO2 POC HCO3 POC Total CO2 POC Base Excess POC ABG O2 Sat POC Sodium Sodium 141 POC Potassium Potassium 3.9 Chloride 118 H Carbon Dioxide 21 Anion Gap 2 L BUN 27 H Creatinine 4.15 H Est Cr Clr Drug Dosing 20.2 eGFR 15.14 BUN/Creatinine Ratio 6.5 L Glucose 118 H POC Glucose 107 H 125 H Calcium 9.1 Magnesium 1.9 Total Bilirubin 2.2 H AST 88 H ALT 104 H Alkaline Phosphatase 193 H Ammonia 39.0 Total Protein 5.9 L Albumin 2.1 L Globulin 3.8 Albumin/Globulin Ratio 0.6 L Vitamin B1 Pending TSH 18.999 H Free T4 1.17 Random Cortisol Vancomycin Trough 21.4 H Urine Opiates Screen Ur Methadone, Qual Urine Fentanyl Screen Urine Barbiturates Lamotrigine Pending Ur Phencyclidine (PCP) U Amphetamin/Meth Scrn MDMA (Ecstasy) Screen U Benzodiazepines Scrn Ur Cocaine Metabolite U Marijuana (THC) Screen 08/17/24 08/17/24 08/17/24 11:47 12:20 14:13 WBC RBC Hgb POC Hgb 7.8 L Hct POC Hct 23 L MCV MCH MCHC RDW Std Deviation RDW Coeff of Eladio Plt Count MPV Absolute Nucleated RBC Nucleated RBC % (auto) PT 26.5 H INR 2.7 H Specimen Type Arterial POC pH 7.33 L POC pCO2 27 L POC pO2 28 L POC HCO3 14 L POC Total CO2 15 L POC Base Excess -12.0 L POC ABG O2 Sat 49.0 L POC Sodium 145 H Sodium POC Potassium 3.8 Potassium Chloride Carbon Dioxide Anion Gap BUN Creatinine Est Cr Clr Drug Dosing eGFR BUN/Creatinine Ratio Glucose POC Glucose 136 H Calcium Magnesium Total Bilirubin AST ALT Alkaline Phosphatase Ammonia Total Protein Albumin Globulin Albumin/Globulin Ratio Vitamin B1 TSH Free T4 Random Cortisol Vancomycin Trough Urine Opiates Screen Ur Methadone, Qual Urine Fentanyl Screen Urine Barbiturates Lamotrigine Ur Phencyclidine (PCP) U Amphetamin/Meth Scrn MDMA (Ecstasy) Screen U Benzodiazepines Scrn Ur Cocaine Metabolite U Marijuana (THC) Screen 08/17/24 08/17/24 08/17/24 14:17 16:13 Unknown WBC RBC Hgb POC Hgb Hct POC Hct MCV MCH MCHC RDW Std Deviation RDW Coeff of Eladio Plt Count MPV Absolute Nucleated RBC Nucleated RBC % (auto) PT INR Specimen Type POC pH POC pCO2 POC pO2 POC HCO3 POC Total CO2 POC Base Excess POC ABG O2 Sat POC Sodium Sodium POC Potassium Potassium Chloride Carbon Dioxide Anion Gap BUN Creatinine Est Cr Clr Drug Dosing eGFR BUN/Creatinine Ratio Glucose POC Glucose 136 H Calcium Magnesium Total Bilirubin AST ALT Alkaline Phosphatase Ammonia Total Protein Albumin Globulin Albumin/Globulin Ratio Vitamin B1 TSH Free T4 Random Cortisol 7.77 Vancomycin Trough Urine Opiates Screen Neg Ur Methadone, Qual Neg Urine Fentanyl Screen Neg Urine Barbiturates Neg Lamotrigine Ur Phencyclidine (PCP) Neg U Amphetamin/Meth Scrn Neg MDMA (Ecstasy) Screen Neg U Benzodiazepines Scrn Neg Ur Cocaine Metabolite Neg U Marijuana (THC) Screen Neg Diagnostic Findings Brain MRI 08/16/24 10:21 Exam(s): MRI HEAD Without Contrast EXAM: MR Head Without Intravenous Contrast CLINICAL HISTORY: Altered mental status. TECHNIQUE: Magnetic resonance images of the head/brain without intravenous contrast in multiple planes. COMPARISON: CT head without contrast performed 08/14/2024 FINDINGS: Limitations: There is motion artifact, which degrades image quality on multiple sequences. Brain: Diffusion-weighted imaging is negative for acute or subacute infarct. No definite intracranial hemorrhage. No significant mass- effect. No cortical infarct. Ventricles: Unremarkable. No ventriculomegaly. Bones/joints: Unremarkable. No acute fracture. Sinuses: Unremarkable as visualized. No acute sinusitis. Mastoid air cells: Unremarkable as visualized. No mastoid effusion. Orbits: Unremarkable as visualized. IMPRESSION: No evidence of acute or subacute infarct. Electronically signed by: Donald Head MD 08/16/24 23:[address] 08/17/24 13:23 CT head/brain wo con CLINICAL HISTORY: Altered mental status. TECHNIQUE: Multiple axial CT images of the head were obtained without contrast. Sagittal and coronal reconstructions were done. A dose lowering technique was utilized adhering to the principles of ALARA. CT DOSE: 2199.31 mGy.cm COMPARISON: 08/14/2024 FINDINGS: Some motion degradation is present. The been no significant interval change since the prior examination. There is no intra-axial or extra-axial fluid collection, hemorrhage, or mass. There is no midline shift. The ventricles and sulci are age-appropriate. The bone windows are grossly negative. IMPRESSION: Stable exam; no acute intracranial process identified. ACT 112: Negative or not required by law. The above report was generated using voice recognition software. It may contain grammatical, syntax or spelling errors. Electronically signed by: Deanna Rodríguez M.D. 08/17/2024 3:22 PM Chest X-Ray 08/17/24 13:50 XR chest 1V portable CLINICAL HISTORY: Hypoxia COMPARISON STUDY: 08/14/2024 FINDINGS: The study is compromised by respiratory motion. There is a right-sided PICC line with the tip not visible. There is continued elevation of the right hemidiaphragm with adjacent discoid atelectasis. The left lung is grossly clear. Mild cardiomegaly and pulmonary vascular congestion are persistent. IMPRESSION: Stable exam; no acute process identified. ACT 112: Negative or not required by law. Electronically signed by: Deanna Rodríguez M.D. 08/17/2024 3:10 PM Abdomen/Pelvis CT 08/17/24 13:57 CT OF THE ABDOMEN AND PELVIS WITHOUT CONTRAST CLINICAL HISTORY: Abdominal pain. COMPARISON STUDY: CT of the abdomen and pelvis August 14, 2024. TECHNIQUE: Axial images of the abdomen and pelvis were obtained without IV contrast. Images were reviewed in the axial, sagittal, and coronal planes. Automated exposure control was utilized for the study. A dose lowering technique was utilized adhering to the principles of ALARA. FINDINGS: Small right and trace left pleural effusions are present. Subpleural opacities favor atelectasis. This exam is compromised given motion artifact and lack of IV contrast. There is severe hepatic steatosis. Hepatomegaly is noted. There is no pneumatosis, free air or portal venous gas. Small amount of ascites within the pelvis is present. Unenhanced images of the spleen, adrenal glands, kidneys and pancreas are unremarkable with exception of a suspected left lower pole renal cyst. There is no evidence for a bowel obstruction. A Sarmiento balloon within the bladder is present. Body wall edema suggesting anasarca. No fluid collections are identified. There are no urinary calculi. There is no hydronephrosis. There is no lymphadenopathy. No peripancreatic or pericholecystic infiltration is present. IMPRESSION: 1. Exam compromised given lack of IV contrast and motion artifact. 2. No bowel obstruction. 3. Severe hepatic steatosis. Hepatomegaly. 3. Anasarca. Small right and trace left pleural effusions. Small amount of ascites within the pelvis. ACT 112: Negative or not required by law. Electronically signed by: Dewey Jorge M.D. 08/17/2024 3:37 PM Medications Administered Home Medications Medication Instructions Recorded Confirmed Last Taken Lactobacillus acidophilus 10 10,000 mmu cells PO DAILY 08/14/24 08/14/24 Unknown billion cell capsule (Probiotic) aspirin 81 mg tablet,delayed 81 mg PO DAILY 08/14/24 08/14/24 Unknown release atenolol 100 mg tablet 100 mg PO DAILY 08/14/24 08/14/24 Unknown atorvastatin 20 mg tablet 20 mg PO DAILY 08/14/24 08/14/24 Unknown bisacodyl 10 mg rectal suppository 10 mg SC DAILY PRN Constipation 08/14/24 08/14/24 Unknown (Dulcolax (bisacodyl)) ceftriaxone 1 gram intravenous 1 g IV DAILY 08/14/24 08/14/24 Unknown solution cyanocobalamin (vitamin B-12) 500 500 mcg PO DAILY 08/14/24 08/14/24 Unknown mcg tablet empagliflozin 25 mg tablet 25 mg PO DAILY 08/14/24 08/14/24 Unknown gabapentin 300 mg capsule 600 mg PO HS 08/14/24 08/14/24 Unknown hydroxyzine HCl 10 mg tablet 10 mg PO HS PRN Anxiety 08/14/24 08/14/24 Unknown lamotrigine 100 mg tablet 100 mg PO BID 08/14/24 08/14/24 Unknown (Lamictal) lisinopril 20 mg tablet 20 mg PO DAILY 08/14/24 08/14/24 Unknown metformin 500 mg tablet 500 mg PO BID 08/14/24 08/14/24 Unknown multivitamin with minerals 1 tab PO DAILY 08/14/24 08/14/24 Unknown ondansetron 4 mg disintegrating 4 mg PO Q8H PRN Nausea And Vomiting 08/14/24 08/14/24 Unknown tablet oxycodone 5 mg tablet 5 mg PO Q6H PRN Severe Pain (Scale 08/14/24 08/14/24 Unknown Score 7-10) vancomycin 1,000 mg intravenous 1 g IV UD 08/14/24 08/14/24 Unknown injection Active Medications Generic Name Dose Route Start Last Admin Trade Name Freq PRN Reason Stop Dose Admin Aspirin 81 mg 08/15/24 09:00 08/17/24 09:23 Aspirin 81 Mg Ectab PO 09/14/24 08:59 Not Given DAILY ANDREI Atenolol 100 mg 08/15/24 09:00 08/17/24 09:23 Atenolol 50 Mg Tablet PO 09/14/24 08:59 Not Given DAILY ANDREI Cyanocobalamin 500 mcg 08/15/24 09:00 08/17/24 09:23 Cyanocobalamin (B-12) 500 Mcg Tablet PO 09/14/24 08:59 Not Given DAILY ANDREI Dextrose 25 - 50 ml 08/14/24 23:10 08/16/24 19:34 Dextrose 50% 50 Ml Syringe IV 09/13/24 23:09 25 ml UD PRN Administration Hypoglycemia Protocol Protocol Ferrous Sulfate 325 mg 08/15/24 09:00 08/17/24 09:23 Ferrous Sulfate 325 Mg Tab PO 09/14/24 08:59 Not Given QAM ANDREI Heparin Sodium (Porcine) 5,000 units 08/15/24 00:00 08/17/24 09:14 Heparin Sod 5,000 Unit/0.5 Ml Vial SQ 09/14/24 00:00 5,000 units Q8H ANDREI Administration Acetaminophen 1,000 mg in 100 mls @ 400 mls/hr 08/14/24 23:10 08/17/24 14:28 Ofirmev IV 08/17/24 23:09 Infused Q8H PRN Infusion Pain or Fever Dextrose/Sodium Chloride 1,000 mls @ 50 mls/hr 08/16/24 20:00 08/17/24 15:49 D5w And Nss IV 08/17/24 19:59 100 mls/hr .Q20H ANDREI Administration Insulin Aspart 0 units 08/15/24 07:30 08/17/24 17:01 Insulin Aspart Per Unit Charge SC 09/14/24 07:29 Not Given ACHS [facility] Lactobacillus Acidophilus 1,250 mg 08/15/24 09:00 08/17/24 09:23 Advanced Probiotic 625 Mg Capsule PO 09/14/24 08:59 Not Given DAILY [facility] Lamotrigine 100 mg 08/15/24 09:00 08/17/24 09:23 Lamotrigine 100 Mg Tab PO 09/14/24 08:59 Not Given BID ANDREI Protocol Multivitamins 1 tab 08/15/24 09:00 08/17/24 09:23 Multivitamin Tab PO 09/14/24 08:59 Not Given DAILY ANDREI
--- NOTE | 2024-08-17 19:43 | Communication Note ---
Date of Service: August 17, 2024
[2024-08-17] MEDS: DEXTROSE 5% IV STA (20:26)
[2024-08-17] MEDS: VALPROATE SOD IV STA (20:26)
[2024-08-18 07:42] LABS: Hematocrit (blood only) 27.5 % (42.0-52.0); Hemoglobin 8.8 g/dl (14.0-18.0); Mean Corpuscular Hemoglobin 29.6 pg (25.0-34.0); Mean Corpuscular Volume 92.6 fL (80.0-100.0); Mean Platelet Volume 8.8 fL (9.4-12.4); Nucleated RBC # (auto) 0.02 K/uL (0.00-0.12); Nucleated RBC % (auto) 0.2 %; Platelet Count 424 K/uL (130-400); RDW Coefficient of Variation 15.9 % (11.5-14.5); RDW Standard Deviation 53.2 fL (36.4-46.3); Red Blood Count 2.97 M/uL (4.70-6.10); White Blood Count 10.26 K/ul (4.8-10.8)
[2024-08-18] MEDS: VALPROIC ACID SOLN 500 MG/10 ML UDC PO SCH (08:02)
[2024-08-18] MEDS: THIAMINE HCL 100 MG TAB PO SCH (08:02)
[2024-08-18 08:05] LABS: Albumin Globulin Ratio 0.5 (0.9-2); BUN Creatinine Ratio 6.3 (10-20); Calcium 10.6 mg/dl (8.6-10.3); Creatinine Clr Calc Pharmacy 20.4 ml/min; Globulin 3.7 gm/dl (2.5-4.0); Potassium 3.6 mmol/L (3.5-5.1); Total Protein 5.7 gm/dl (6.0-8.3)
[2024-08-18 08:06] LABS: INR 2.5 (0.9-1.1); Prothrombin Time 25.1 Seconds (9.0-12.0)
--- NOTE | 2024-08-18 08:44 | Nephrology Progress Note ---
Date of Service August 18, 2024 Assessment & Plan Admission and Anticipated Discharge Date Admission Date: August 14, 2024 Subjective Assessment & Plan (1) JUANA (acute kidney injury): Sudden severe JUANA from ATN with Sepsis. ATN could be Ischemic or toxic in the setting of Sepsis/vanco. From normal creat went to 4.5 within a span of 72 hrs. However since then No further rise. Also making urine and no major issues with fluid overload and/or lytes. Obstruction already ruled out. I and O charting. Daily renal panel and CBC. maintain good hemodynamics. Hold metformin, Jardiance, Lisinopril. No NSAIDS, no contrast agents or Diuretics for now. As much as possible use alternate Abx--no vancomycin. Creat very slightly lower than yesterday but he is making slightly more urine so somewhat hopeful that ATN has likely peaked. No dialysis needed today however he is not out of danger yet given he is still very sick and not in full recovery path. Also creat just seems stuck in the low 4's for many days now. Na now high at 147 + BP is high.. NO need for iv fluid as such. On Tube feed now. Increase Free Water flush to 100 ml q6hr. May need more. (2) Sepsis: Source is diabetic Ulcer with recent complications. he seems very confused. Reviewed neuro note also. S--no new issues. Vital signs are acceptable. Making urine--628 ml yesterday-> than prior day ROS---Still confused and restless. Urine 675 ml yesterday. He appeared to be sick. BP is now starting to be high. Physical Exam Physical Exam: General Appearance: mild distress, confused Head: normocephalic, Atraumatic Neck: supple, Respiratory/Chest: Normal breath sounds, Clear, No accessory muscle use Cardiovascular: S1, S2, No murmur Abdomen/GI:Soft, Non tender, Extremities/Musculoskeletal:normal inspection, 1+ B/L LE edema, erythema, R great toe s/p amputation, R foot ulcer Results & Data Vital Signs (Past 12 Hours) Vital Signs Temp Pulse Pulse Resp BP Pulse Ox O2 Del Method 08/18/24 06:51 37.6 C H 99 H 22 173/75 H 93 Room Air 08/18/24 06:46 93 Room Air 08/18/24 06:45 95 Nasal Cannula 08/18/24 06:44 95 Nasal Cannula 08/18/24 02:37 97 H 20 168/80 H 97 Nasal Cannula 08/17/24 23:52 Nasal Cannula 08/17/24 22:19 36.7 C 88 22 166/72 H 97 Nasal Cannula 08/17/24 21:52 84 O2 Flow Rate 08/18/24 06:51 08/18/24 06:46 08/18/24 06:45 2 08/18/24 06:44 3 08/18/24 02:37 3 08/17/24 23:52 2 08/17/24 22:19 4 08/17/24 21:52
[2024-08-18] MEDS: VALPROATE SOD 500 MG in DEXTROSE 5% 50 ML IV ONE (10:31)
[2024-08-18] MEDS: TPN/PPN CONSULT PHARMACY STA (11:15)
--- NOTE | 2024-08-18 11:59 | XRay Report ---
EXAM: Radiograph of the Abdomen 1 View INDICATION: Nasogastric tube placement. TECHNIQUE: Frontal supine view of the abdomen/pelvis. Image obtained at 11:36 AM. COMPARISON: No relevant prior studies available. FINDINGS: Limitations: None. Lower thorax: Right diaphragmatic elevation/eventration with adjacent compressive atelectasis. Large cardiac shadow. Gastrointestinal tract: No aerated intestinal loops seen in the upper abdomen. Organs: Visualized organ shadows appear grossly normal. Bones/joints: No fracture, erosion or dislocation. Soft tissues: No abnormality noted. No radiopaque foreign body noted. Tubes, lines and devices: Nasogastric tube terminates in the gastric body. IMPRESSION: Nasogastric tube terminates in the gastric body. ACT 112: Negative or not required by law. Electronically signed by Snehal Chappell 08-18-2024 11:59 AM
[2024-08-18] MEDS: ACETAMINOPHEN 1,000 MG/100 ML VIAL IV PRN (12:19)
[2024-08-18] MEDS: NOVASOURCE RENAL 2.0 CAL 1000ML BAG NG SCH (14:00)
[2024-08-18] MEDS: TUBE FEEDING WATER FLUSH NG SCH ×2 (14:17→16:30)
--- NOTE | 2024-08-18 15:19 | Hospitalist Progress Note ---
Date of Service August 18, 2024 Assessment & Plan (1) Sepsis: Plan: 63-year-old male with past medical history significant for type 2 diabetes, diabetic ulcer of right midfoot, dyslipidemia, hypophosphatemia, hypertension, history of C. difficile colitis, oral thrush, cellulitis of right leg, abscess of right foot, absent seizures, history of lung cancer, was sent in by [facility] rehab because of confusion and fevers. Patient was in [facility] from 08/02/2024 to 08/11/2024. He was admitted to the [facility] for right foot swelling and rednesss and fevers. And right foot x-ray showed healed fracture through the midshaft of second metatarsal bone with calcified bridging callus. Pes planus. He was admitted for right foot infection. MRI of the foot was negative for osteomyelitis and showed cellulitis and possible abscess. Status post I&D by podiatry at bedside on August 03 with a deep purulence obtained and sent for culture. Status post I&D with podiatry for sepsis on August 06 and probe to bone very favorable and no clear abscess as suggested by CT scan. During hospital stay he was also completed Tamiflu for influenza. ID suggested Ancef until September 17 and to treat as osteomyelitis for MSSA on wound cultures with 6 weeks of IV antibiotics. On August 07 patient had rash thought to be from Ancef. Rash was worsening after second dose of Ancef and patient was having fevers that thought to be lined up from Ancef doses and was thought possible drug fever. And ID recommended IV Vanco via PICC line. Vancomycin dosing goal AUC 400-600 Mg/liter/hour. And patient was discharged to [facility] on 08/11/2024. At [facility] patient was still having fevers and shortness of breath and erythema around his wound ,does not appear to be receding thought to be spreading. [facility] made ID aware. As per the med rec from the [facility] seems patient had Rocephin. And was sent to our ER today because of fever and altered mental status. Patient can tell his name. Knows that he is in the hospital. Could tell his date of . But could not tell current dates. Denies any cough. Denies headache. Denies chest pain. Denies shortness of breath. Denies belly pain. Status post Guillermina in the ER. Patient seems poor historian at this time. No sacral ulcer seen. Sepsis Bilateral lower extremity cellulitis Right foot diabetic ulcer Recently on [facility] was placed on IV Vanco for 6 weeks until September 17 to treat his osteomyelitis though MRI was negative and abscess was I&D by podiatry at [facility] --Right Foot X ray: No definite radiographic evidence of osteomyelitis as desc ribed. --Venous Doppler:No evidence of deep venous thrombus within the bilateral lower extremities. --Arterial Doppler:Negative right lower extremity arterial evaluation. No occ lusion or significant hemodynamic stenosis with multiphasic waveforms throughout. --CT ABD:No bowel obstruction. Severe hepatic steatosis. Hepatomegaly. Anasarca. Small amount of ascites within the pelvis. -- Blood cultures negative to date -- Urine culture: 10,000 colonies of Heather glabrata IV cefepime discontinued as recommended by infectious disease/neurology Received IV fluids, monitor volume status closely Avoid IV Vanco as trough level high, JUANA Appreciate infectious disease input: Once Vanco trough drops < 15 will start the patient on IV daptomycin. (Will renally dose IV daptomycin through 09/17/24) Appreciate Podiatry Input : Given ongoing treatment, will defer MRI foot for now Continue local wound care Aspiration precautions Vanco trough 21 today Start on tube feeds Continue to monitor Vanco trough daily Acute metabolic encephalopathy Likely due to above infection Suspected urinary tract infection--Less likely --Head CT:No acute findings in the head/brain. --Urine culture: as above --MRI Brain:No evidence of acute or subacute infarct. Reorient frequently to minimize delirium Repeat CT head showed no acute process -Normal ammonia level -Drug screen pending -VBG showed no hypercarbia -TSH elevated, normal free T4 --Thiamine B1 level pending EEG pending Lamictal levels pending Could not get lumbar puncture due to elevated INR/patient agitated Started on valproic acid Neurology following Acute kidney injury likely ATN/toxic secondary to infection, vancomycin Cr: 4.4>4.1 Creatinine was 1.6 on 08/12/2024 --CT ABD:Mild nonspecific perinephric stranding. No hydronephrosis. Simple 2 cm left renal cyst. No follow-up of this simple cyst is necessary. Avoid nephrotoxic agents as able Monitor renal function, urinary output Appreciate nephrology input Bladder scan as needed Metformin, Jardiance, lisinopril on hold Avoid NSAIDs Monitor for volume overload IV fluids per nephrology Transaminitis Likely due to sepsis, fatty liver --CT ABD:Hepatic steatosis. Hepatomegaly. Minimal free fluid around the liver and in the pelvis. Monitor LFTs Hold Lipitor for now Hyponatremia Resolved Sodium levels improved 147 today Free water flushes through NG tube Monitor Anemia Iron deficiency anemia Anemia of chronic disease No obvious signs of bleeding Vit B12, folate levels reviewed Monitor CBC Started on iron supplements Hypertension Hold lisinopril Continue atenolol with holding parameters Monitor DM II Hold home medications Adjust insulin per protocol to minimize hypoglycemic episodes Monitor blood glucose levels Hyperlipidemia Hold statin due to elevated LFTs History of seizures On Lamictal Valproic acid as above Remote history of lung cancer Treated with chemo as per records DVT Px: Heparin SQ--held due to therapeutic INR Monitor INR: 2.5 today Code Status Full code Disposition To be determined Admission and Anticipated Discharge Date Admission Date: August 14, 2024 Subjective Patient is seen and examined at bedside Lethargic, does not follow commands Updated patient's family over the phone Start on tube feeds Vancomycin trough 21 Toxicology screen negative Saturating well on room air Review of Systems Review of Systems: All systems reviewed & are unremarkable except as noted in Subjective Physical Exam Physical Exam: Physical Exam: Vitals signs as noted above General Appearance:Moderately built and nourished, mild distress, confused , Lethargic Head: normocephalic, Atraumatic Eyes: normal inspection, EOMI Neck: supple, Trachea midline Respiratory/Chest: Normal breath sounds, CTA, No accessory muscle use Cardiovascular: S1, S2, No murmur Abdomen/GI:Soft, Non tender, Bowel sounds present, protuberant Extremities/Musculoskeletal:normal inspection, 1-2+ B/L LE edema, erythema, R great toe s/p amputation, R foot ulcer Neurologic/Psych:Lethargic, unable to perform complete neurological exam Skin: normal color, warm Results & Data Results & Data Vital Signs (Past 12 Hours) Vital Signs Temp Pulse Pulse Resp BP BP Pulse Ox 08/18/24 11:20 158/69 H 08/18/24 11:14 37.2 C 108 H 20 95 08/18/24 09:00 36.9 C 08/18/24 08:00 95 H 08/18/24 08:00 08/18/24 06:51 37.6 C H 99 H 22 173/75 H 93 08/18/24 06:46 93 08/18/24 06:45 95 08/18/24 06:44 95 O2 Del Method O2 Flow Rate 08/18/24 11:20 08/18/24 11:14 Room Air 08/18/24 09:00 08/18/24 08:00 08/18/24 08:00 Room Air 08/18/24 06:51 Room Air 08/18/24 06:46 Room Air 08/18/24 06:45 Nasal Cannula 2 08/18/24 06:44 Nasal Cannula 3
[2024-08-18] MEDS: MENTHOL-ZINC OXIDE 360 APPLN/120 GM TUBE EXT SCH (15:37)
[2024-08-18] MEDS: THIAMINE HCL 100 MG in SYRINGE 9 ML IV SCH (18:07)
[2024-08-18] MEDS: INSULIN ASPART PER UNIT CHARGE SC SCH ×2 (18:08→18:27)
--- NOTE | 2024-08-18 18:47 | Electroencephalogram ---
EEG Procedure Note Date of Service August 17, 2024 Start / End Times Start Time: 606 End Time: [address] Canchola History A 63 yo M w encephalopathy. EEG performed for evaluation of epileptiform activity. Home Medication List Medication Instructions Recorded Confirmed Type Lactobacillus acidophilus 10 10,000 mmu cells PO DAILY 08/14/24 08/14/24 History billion cell capsule (Probiotic) aspirin 81 mg tablet,delayed 81 mg PO DAILY 08/14/24 08/14/24 History release atenolol 100 mg tablet 100 mg PO DAILY 08/14/24 08/14/24 History atorvastatin 20 mg tablet 20 mg PO DAILY 08/14/24 08/14/24 History bisacodyl 10 mg rectal suppository 10 mg MT DAILY PRN Constipation 08/14/24 08/14/24 History (Dulcolax (bisacodyl)) ceftriaxone 1 gram intravenous 1 g IV DAILY 08/14/24 08/14/24 History solution cyanocobalamin (vitamin B-12) 500 500 mcg PO DAILY 08/14/24 08/14/24 History mcg tablet empagliflozin 25 mg tablet 25 mg PO DAILY 08/14/24 08/14/24 History gabapentin 300 mg capsule 600 mg PO HS 08/14/24 08/14/24 History hydroxyzine HCl 10 mg tablet 10 mg PO HS PRN Anxiety 08/14/24 08/14/24 History lamotrigine 100 mg tablet 100 mg PO BID 08/14/24 08/14/24 History (Lamictal) lisinopril 20 mg tablet 20 mg PO DAILY 08/14/24 08/14/24 History metformin 500 mg tablet 500 mg PO BID 08/14/24 08/14/24 History multivitamin with minerals 1 tab PO DAILY 08/14/24 08/14/24 History ondansetron 4 mg disintegrating 4 mg PO Q8H PRN Nausea And Vomiting 08/14/24 08/14/24 History tablet oxycodone 5 mg tablet 5 mg PO Q6H PRN Severe Pain (Scale 08/14/24 08/14/24 History Score 7-10) vancomycin 1,000 mg intravenous 1 g IV UD 08/14/24 08/14/24 History injection Inpatient Medication List Aspirin (Aspirin 81 Mg Ectab) 81 mg PO DAILY ANDREI Stop: 09/14/24 08:59 Last Admin: 08/18/24 08:00 Dose: Not Given Documented By: Admin: 08/17/24 09:23 Dose: Not Given Documented By: Admin: 08/16/24 08:18 Dose: Not Given Documented By: Admin: 08/15/24 11:13 Dose: Not Given Documented By: KTS Atenolol (Atenolol 50 Mg Tablet) 100 mg PO DAILY ANDREI Stop: 09/14/24 08:59 Last Admin: 08/18/24 08:01 Dose: Not Given Documented By: Admin: 08/17/24 09:23 Dose: Not Given Documented By: Admin: 08/16/24 08:18 Dose: Not Given Documented By: Admin: 08/15/24 11:13 Dose: Not Given Documented By: NANIS Calamine/Phenol (Menthol-Zinc Oxide 360 Appln/120 Gm Tube) 1 appln EXT DAILY ANDREI Stop: 09/17/24 15:14 Last Admin: 08/18/24 15:37 Dose: 1 appln Documented By: MERRY Cyanocobalamin (Cyanocobalamin (B-12) 500 Mcg Tablet) 500 mcg PO DAILY ANDREI Stop: 09/14/24 08:59 Last Admin: 08/18/24 08:01 Dose: Not Given Documented By: Admin: 08/17/24 09:23 Dose: Not Given Documented By: Admin: 08/16/24 08:18 Dose: Not Given Documented By: Admin: 08/15/24 11:13 Dose: Not Given Documented By: KTS Dextrose (Dextrose 50% 50 Ml Syringe) 25 - 50 ml IV UD PRN; Protocol PRN Reason: Hypoglycemia Protocol Stop: 09/13/24 23:09 Last Admin: 08/16/24 19:34 Dose: 25 ml Documented By: Admin: 08/16/24 16:28 Dose: 25 ml Documented By: Admin: 08/15/24 16:15 Dose: 25 ml Documented By: Admin: 08/15/24 11:44 Dose: 25 ml Documented By: KTS Enteral Nutritional Formula (Novasource Renal 2.0 Yovani 1000ml Bag) 1,000 ml NG .See Protocol ANDREI; Protocol Stop: 09/17/24 13:44 Last Admin: 08/18/24 14:00 Dose: 1,000 ml Documented By: MERRY Ferrous Sulfate (Ferrous Sulfate 325 Mg Tab) 325 mg PO QAM ANDREI Stop: 09/14/24 08:59 Last Admin: 08/18/24 08:01 Dose: Not Given Documented By: Admin: 08/17/24 09:23 Dose: Not Given Documented By: Admin: 08/16/24 08:18 Dose: Not Given Documented By: Admin: 08/15/24 11:13 Dose: Not Given Documented By: KTUriel Heparin Sodium (Beef Lung) (Heparin 10 Unit/Ml 5 Ml Flush) 5 ml FLUSH PRN PRN PRN Reason: Flush Stop: 09/14/24 03:11 Last Admin: 08/18/24 10:08 Dose: 5 ml Documented By: WILLIAM Heparin Sodium (Porcine) (Heparin Sod 5,000 Unit/0.5 Ml Vial) 5,000 units SQ Q8H ANDREI Stop: 09/14/24 00:00 Last Admin: 08/17/24 09:14 Dose: 5,000 units Documented By: Admin: 08/17/24 00:09 Dose: 5,000 units Documented By: Admin: 08/16/24 16:29 Dose: 5,000 units Documented By: Admin: 08/16/24 08:00 Dose: 5,000 units Documented By: Admin: 08/16/24 02:03 Dose: 5,000 units Documented By: Admin: 08/15/24 15:37 Dose: 5,000 units Documented By: Admin: 08/15/24 08:49 Dose: 5,000 units Documented By: Admin: 08/14/24 23:24 Dose: 5,000 units Documented By: RALEIGH Acetaminophen (Ofirmev) 1,000 mg in 100 mls @ 400 mls/hr IV Q8H PRN PRN Reason: Pain or Fever Stop: 08/21/24 08:00 Last Infusion: 08/18/24 12:46 Dose: Infused Documented By: Admin: 08/18/24 12:19 Dose: 400 mls/hr Documented By: MERRY Thiamine HCl 100 mg/ Syringe 10 mls @ 2 mls/min IV QAM ANDREI Stop: 09/17/24 15:44 Last Admin: 08/18/24 18:07 Dose: 2 mls/min Documented By: MERRY Insulin Aspart (Insulin Aspart Per Unit Charge) 0 units SC Q4 COUNTS INCLUDE 234 BEDS AT THE [facility] Stop: 09/17/24 17:59 Last Admin: 08/18/24 18:27 Dose: Not Given Documented By: MERRY Lactobacillus Acidophilus (Advanced Probiotic 625 Mg Capsule) 1,250 mg PO DAILY COUNTS INCLUDE 234 BEDS AT THE [facility] Stop: 09/14/24 08:59 Last Admin: 08/18/24 08:01 Dose: Not Given Documented By: Admin: 08/17/24 09:23 Dose: Not Given Documented By: Admin: 08/16/24 08:18 Dose: Not Given Documented By: Admin: 08/15/24 11:13 Dose: Not Given Documented By: SALMA Lamotrigine (Lamotrigine 100 Mg Tab) 100 mg PO BID COUNTS INCLUDE 234 BEDS AT THE [facility]; Protocol Stop: 09/14/24 08:59 Last Admin: 08/18/24 08:01 Dose: Not Given Documented By: Admin: 08/17/24 21:21 Dose: Not Given Documented By: Admin: 08/17/24 09:23 Dose: Not Given Documented By: Admin: 08/16/24 21:30 Dose: Not Given Documented By: Admin: 08/16/24 08:18 Dose: Not Given Documented By: Admin: 08/15/24 22:11 Dose: 100 mg Documented By: Admin: 08/15/24 11:13 Dose: Not Given Documented By: KTS Multivitamins (Multivitamin Tab) 1 tab PO DAILY COUNTS INCLUDE 234 BEDS AT THE [facility] Stop: 09/14/24 08:59 Last Admin: 08/18/24 08:01 Dose: Not Given Documented By: Admin: 08/17/24 09:23 Dose: Not Given Documented By: Admin: 08/16/24 08:18 Dose: Not Given Documented By: Admin: 08/15/24 11:13 Dose: Not Given Documented By: KTS Sterile Water (Tube Feeding Water Flush) 100 ml NG Q6H COUNTS INCLUDE 234 BEDS AT THE [facility] Stop: 09/17/24 16:29 Last Admin: 08/18/24 16:30 Dose: 100 ml Documented By: MERRY Discontinued Medications Sodium Chloride (Nss) 1,000 mls @ 999 mls/hr IV .Q1H1M ONE Stop: 08/14/24 21:02 Last Infusion: 08/14/24 21:49 Dose: Infused Documented By: Admin: 08/14/24 20:26 Dose: 999 mls/hr Documented By: KANU Acetaminophen (Ofirmev) 1,000 mg in 100 mls @ 400 mls/hr IV NOW STA Stop: 08/14/24 20:16 Last Infusion: 08/14/24 20:48 Dose: Infused Documented By: Admin: 08/14/24 20:26 Dose: 400 mls/hr Documented By: KANU Sodium Chloride (Nss) 1,000 mls @ 999 mls/hr IV .Q1H1M ONE Stop: 08/14/24 21:11 Last Infusion: 08/14/24 23:11 Dose: Infused Documented By: Admin: 08/14/24 21:44 Dose: 999 mls/hr Documented By: COLIN Sodium Chloride (Nss) 500 mls @ 999 mls/hr IV .Q31M ONE Stop: 08/14/24 20:41 Last Infusion: 08/14/24 21:50 Dose: Infused Documented By: Admin: 08/14/24 20:31 Dose: 999 mls/hr Documented By: KANU Cefepime HCl (Maxipime 2000mg) 2,000 mg in 20 mls @ 5 mls/min IV NOW STA; Protocol Stop: 08/14/24 20:21 Last Admin: 08/14/24 20:50 Dose: 5 mls/min Documented By: KANU Cefepime HCl (Maxipime 2000mg) 1,000 mg in 10 mls @ 5 mls/min IV Q12H ANDREI; Protocol Stop: 08/22/24 08:59 Last Admin: 08/16/24 08:00 Dose: 5 mls/min Documented By: Admin: 08/15/24 19:41 Dose: 5 mls/min Documented By: Admin: 08/15/24 08:49 Dose: 5 mls/min Documented By: SALMA Sodium Chloride (Nss) 1,000 mls @ 100 mls/hr IV .Q10H ANDREI Stop: 08/15/24 23:09 Last Infusion: 08/16/24 10:04 Dose: Infused Documented By: Admin: 08/15/24 23:02 Dose: 80 mls/hr Documented By: Infusion: 08/15/24 23:02 Dose: Infused Documented By: Admin: 08/15/24 11:15 Dose: 80 mls/hr Documented By: Infusion: 08/15/24 11:14 Dose: Infused Documented By: Admin: 08/14/24 23:26 Dose: 80 mls/hr Documented By: RALEIGH Acetaminophen (Ofirmev) 1,000 mg in 100 mls @ 400 mls/hr IV Q8H PRN PRN Reason: Pain or Fever Stop: 08/17/24 23:09 Last Infusion: 08/17/24 14:28 Dose: Infused Documented By: Admin: 08/17/24 14:02 Dose: 400 mls/hr Documented By: Infusion: 08/17/24 06:11 Dose: Infused Documented By: Admin: 08/16/24 22:58 Dose: 400 mls/hr Documented By: Infusion: 08/15/24 20:12 Dose: Infused Documented By: Admin: 08/15/24 19:41 Dose: 400 mls/hr Documented By: Infusion: 08/15/24 11:14 Dose: Infused Documented By: Admin: 08/15/24 11:00 Dose: 400 mls/hr Documented By: KTS Sodium Chloride (Nss) 1,000 mls @ 100 mls/hr IV .Q10H ANDREI Stop: 09/14/24 23:14 Last Infusion: 08/17/24 09:24 Dose: Infused Documented By: Infusion: 08/16/24 19:50 Dose: 0 mls/hr Documented By: Admin: 08/16/24 16:59 Dose: 100 mls/hr Documented By: Infusion: 08/16/24 16:54 Dose: Infused Documented By: Admin: 08/16/24 08:01 Dose: 100 mls/hr Documented By: Infusion: 08/16/24 08:00 Dose: Infused Documented By: Admin: 08/15/24 23:02 Dose: 100 mls/hr Documented By: CTA Thiamine HCl 100 mg/ Syringe 10 mls @ 2 mls/min IV QAM ANDREI Stop: 09/15/24 13:44 Last Admin: 08/17/24 09:18 Dose: 2 mls/min Documented By: Admin: 08/16/24 15:29 Dose: 2 mls/min Documented By: SALMA Dextrose/Sodium Chloride (D5w And Nss) 1,000 mls @ 50 mls/hr IV .Q20H ANDREI Stop: 08/17/24 19:59 Last Infusion: 08/17/24 19:59 Dose: Infused Documented By: Admin: 08/17/24 15:49 Dose: 100 mls/hr Documented By: Infusion: 08/17/24 15:49 Dose: Infused Documented By: Admin: 08/17/24 05:46 Dose: 100 mls/hr Documented By: Infusion: 08/17/24 05:46 Dose: Infused Documented By: Admin: 08/16/24 20:06 Dose: 100 mls/hr Documented By: SADIE Valproic Acid 1,800 mg/ (Dextrose) 118 mls @ 118 mls/hr IV NOW STA Stop: 08/17/24 20:49 Last Infusion: 08/17/24 21:26 Dose: Infused Documented By: Admin: 08/17/24 20:26 Dose: 118 mls/hr Documented By: STEFANIE Valproic Acid 500 mg/ Dextrose 55 mls @ 55 mls/hr IV ONE ONE Stop: 08/18/24 10:44 Last Infusion: 08/18/24 11:44 Dose: Infused Documented By: Admin: 08/18/24 10:31 Dose: 55 mls/hr Documented By: MERRY Insulin Aspart (Insulin Aspart Per Unit Charge) 0 units SC ACHS ANDREI Stop: 09/14/24 07:29 Last Admin: 08/18/24 11:50 Dose: Not Given Documented By: Admin: 08/18/24 07:54 Dose: Not Given Documented By: Admin: 08/17/24 21:22 Dose: Not Given Documented By: Admin: 08/17/24 17:01 Dose: Not Given Documented By: Admin: 08/17/24 12:29 Dose: Not Given Documented By: Admin: 08/17/24 09:11 Dose: Not Given Documented By: Admin: 08/16/24 20:19 Dose: Not Given Documented By: Admin: 08/16/24 16:29 Dose: Not Given Documented By: Admin: 08/16/24 12:11 Dose: Not Given Documented By: Admin: 08/16/24 07:59 Dose: Not Given Documented By: Admin: 08/15/24 22:02 Dose: Not Given Documented By: Admin: 08/15/24 16:50 Dose: Not Given Documented By: Admin: 08/15/24 11:39 Dose: Not Given Documented By: Admin: 08/15/24 08:28 Dose: Not Given Documented By: SALMA Insulin Aspart (Insulin Aspart Per Unit Charge) 0 units SC Q6 ANDREI Stop: 09/17/24 17:59 Last Admin: 08/18/24 18:08 Dose: Not Given Documented By: MERRY Miscellaneous Information (Tpn/Ppn Consult Pharmacy) 1 each N/A NOW STA Stop: 08/18/24 10:26 Last Admin: 08/18/24 11:15 Dose: Not Given Documented By: MERRY Ondansetron HCl (Ondansetron Inj 2 Mg/Ml 2 Ml Vial) 4 mg IV NOW STA Stop: 08/15/24 00:05 Last Admin: 08/15/24 00:13 Dose: 4 mg Documented By: RALEIGH Sterile Water (Tube Feeding Water Flush) 30 ml NG Q4H ANDREI Stop: 09/17/24 13:59 Last Admin: 08/18/24 14:17 Dose: 30 ml Documented By: MERRY Thiamine HCl (Thiamine Hcl 100 Mg Tab) 100 mg PO DAILY ANDREI Stop: 09/17/24 08:59 Last Admin: 08/18/24 08:02 Dose: Not Given Documented By: MERRY Valproic Acid (Valproic Acid Soln 500 Mg/10 Ml Udc) 500 mg PO BID ANDREI Stop: 09/17/24 08:59 Last Admin: 08/18/24 08:02 Dose: Not Given Documented By: MERRY Description This is a 21 electrode EEG with a single channel dedicated to limited EKG. The electrodes were placed in accordance with the International 10-20 system. REPORT: At the onset of the EEG the patient is in an altered mental state. There is loss of the normal anterior to posterior gradient. The background consist of an admixture of theta delta activity with high amplitude generalized broad based sharp waves w triphasic morphology. No seizures or sleep transients are seen. Interpretation IMPRESSION: This is an abnormal routine EEG in a patient w altered mental state due to 1. Generalized background slowing suggestive of non specific encephalopathy, 2. Triphasic waves which are non specific but commonly seen in metabolic encephalopathies.
[2024-08-18] MEDS: VALPROATE SOD 500 MG in DEXTROSE 5% 50 ML IV SCH (20:44)
[2024-08-19] MEDS: LABETALOL HCL IV 5 MG/ML 20ML IV PRN (03:10)
--- NOTE | 2024-08-19 04:48 | Communication Note ---
Date of Service: August 19, 2024
[2024-08-19] MEDS: MAGNESIUM SULFATE / D5W 1 GM/100 ML BAG IV ONE (05:05)
[2024-08-19] MEDS: METOPROLOL TARTRATE 1 MG/ML VIAL IV STA ×2 (05:06→21:40)
[2024-08-19 05:58] LABS: Amorphous Sediment Urine Present (None Prsent); Appearance Urine Turbid (Clear); Bacteria Urine Automated 1+ (None Seen); Bilirubin Urine 1+ (Negative); Blood Urine 2+ (Negative); Color Urine Dark Yellow; Glucose Urine UA Negative (Negative); Ketones Urine Trace (Negative); Leukocyte Esterase Urine 2+ (Negative); Nitrite Urine Negative (Negative); Protein Urine 3+ (Negative); RBC Urine Automated >20 /hpf (0-2); Specific Gravity Urine 1.019 (1.000-1.030); Urobilinogen Urine Negative (Negative); WBC Urine Automated >50 /hpf (0-5); pH Urine 5.5 (4.5-7.5)
[2024-08-19] MEDS: IPRATROPIUM BROMIDE NEB SOLN 0.02% 0.5MG/2.5ML VIAL INH STA ×2 (06:00→21:25)
[2024-08-19] MEDS: LEVALBUTEROL 1.25 MG/3 ML NEB NEB STA ×2 (06:00→21:17)
[2024-08-19] MEDS: FUROSEMIDE 40 MG/4 ML VIAL IV ONE ×2 (06:03→21:53)
[2024-08-19 06:04] LABS: HCO3 VBG 14 mmol/L; Oxygen Saturation VBG 87.6 %; PCO2 VBG 24 mmHg (38-50); PO2 VBG 53 mmHg; pH VBG 7.38 (7.36-7.41)
[2024-08-19 06:15] LABS: Basophils # (auto) 0.08 K/uL (0.00-0.20); Eosinophils # (auto) 0.68 K/uL (0.00-0.50); Eosinophils % (auto) 8.8 %; Hematocrit (blood only) 28.1 % (42.0-52.0); Hemoglobin 8.9 g/dl (14.0-18.0); Immature Granulocytes # (auto) 0.24 K/uL (0.01-0.20); Immature Granulocytes % (auto) 3.1 %; Lymphocytes # (auto) 1.93 K/uL (1.20-3.40); Mean Corpuscular Hemoglobin 29.4 pg (25.0-34.0); Mean Corpuscular Hgb Conc 31.7 g/dL (32.0-36.0); Mean Corpuscular Volume 92.7 fL (80.0-100.0); Mean Platelet Volume 8.9 fL (9.4-12.4); Monocytes % (auto) 5.2 %; Neutrophils # (auto) 4.38 K/uL (1.40-6.50); Neutrophils % (auto) 56.9 %; Nucleated RBC # (auto) 0.04 K/uL (0.00-0.12); Nucleated RBC % (auto) 0.5 %; Platelet Count 386 K/uL (130-400); RDW Coefficient of Variation 16.1 % (11.5-14.5); RDW Standard Deviation 54.2 fL (36.4-46.3); Red Blood Count 3.03 M/uL (4.70-6.10); White Blood Count 7.71 K/ul (4.8-10.8)
[2024-08-19 06:25] LABS: Albumin Globulin Ratio 0.5 (0.9-2); Albumin Level 1.9 gm/dl (3.4-5.0); Bilirubin,Total 2.2 mg/dl (0.2-1.0); Calcium 11.5 mg/dl (8.6-10.3); Creatinine Clr Calc Pharmacy 20.8 ml/min; Globulin 3.9 gm/dl (2.5-4.0); Phosphorus 3.7 mg/dl (2.5-4.9); Potassium 3.2 mmol/L (3.5-5.1); Total Protein 5.8 gm/dl (6.0-8.3)
--- NOTE | 2024-08-19 06:25 | XRay Report ---
EXAM: XR chest 1V portable CLINICAL HISTORY: Tachypnea. TECHNIQUE: An X-ray image of the chest is obtained in AP projection. COMPARISON: XR chest, 08/17/2024. XR KUB/Abdomen 08/18/2024. FINDINGS: NG tube noted in situ. The tip is seen below the hemidiaphragm. Unchanged. Right PICC is noted. The tip is seen in the cavoatrial junction. Pulmonary Parenchyma: Slight interval regression of previously noted bilateral mild pleural effusion/thickening. Small right basilar linear opacities. This could be due to atelectasis. Elevation of right hemidiaphragm. Heart and Mediastinum: Increased cardiothoracic ratio. This could be projectional. Perihilar vascular congestion. No mediastinal widening or masses. No hilar or mediastinal lymphadenopathy. Bony Thorax: Bony thorax appears intact without fractures or deformities. Soft Tissues: Soft tissues overlying the chest wall are unremarkable. IMPRESSION: 1. NG tube noted in situ. Unchanged. 2. Right PICC noted in situ. Unchanged. 3. Slight interval regression of previously noted bilateral mild pleural effusion/thickening. 4. Small right basilar opacities. This could be due to atelectasis. The possibility of evolving infection or inflammatory process cannot be excluded. Need clinical correlation. Unchanged. 5. Elevation of right hemidiaphragm. Unchanged. Electronically signed by Rajani Jenkins 08-19-2024 06:25 AM
[2024-08-19 06:32] LABS: INR 2.7 (0.9-1.1); Prothrombin Time 26.7 Seconds (9.0-12.0)
[2024-08-19 06:49] LABS: Vancomycin Trough 18.7 mcg/ml (10-20)
[2024-08-19] MEDS: POTASSIUM CHLORIDE / WTR 10 MEQ/100 ML PLCT IV SCH (08:03)
[2024-08-19] MEDS: ALTEPLASE, RECOMBINANT 1 MG/ML 2ML VIAL INSTIL ONE (08:04)
[2024-08-19] MEDS ORDERED: MULTI VIT W/MINERALS LIQUID 15 ML UDC PO SCH (09:00)
[2024-08-19] MEDS: FERROUS SULFATE 325 MG/7.4 ML UDP NG SCH (09:07)
[2024-08-19] MEDS: MULTI VIT W/MINERALS LIQUID 15 ML UDC NG SCH (09:07)
[2024-08-19] MEDS: CYANOCOBALAMIN (B-12) 500 MCG TABLET NG SCH (09:09)
[2024-08-19] MEDS: ATENOLOL 50 MG TABLET NG SCH (09:09)
[2024-08-19] MEDS: ASPIRIN 81 MG CHEW NG SCH (09:13)
--- NOTE | 2024-08-19 10:25 | Ultrasound Report ---
EXAM: US Abdomen Limited Gallbladder INDICATION: Trace ascites. TECHNIQUE: Real-time ultrasound of the gallbladder with image documentation. COMPARISON: No relevant prior studies available. FINDINGS: Liver: Enlarged to 24 cm long. Markedly echogenic. Gallbladder: No gallstones, wall thickening or surrounding fluid. Common bile duct: No significant abnormality noted. No stones. No dilation. Pancreas: Obscured by gas. Free fluid: Trace ascites noted. IMPRESSION: 1. Trace ascites. 2. Normal sonographic appearance of the gallbladder. 3. Large fatty liver. ACT 112: Negative or not required by law. Electronically signed by Snehal Chappell 08-19-2024 10:24 AM
[2024-08-19] MEDS: DEXTROSE 5% 1,000 ML IV ONE (12:33)
--- NOTE | 2024-08-19 15:17 | Hospitalist Progress Note ---
Date of Service August 19, 2024 Assessment & Plan (1) Sepsis: Plan: 63-year-old male with past medical history significant for type 2 diabetes, diabetic ulcer of right midfoot, dyslipidemia, hypophosphatemia, hypertension, history of C. difficile colitis, oral thrush, cellulitis of right leg, abscess of right foot, absent seizures, history of lung cancer, was sent in by [facility] rehab because of confusion and fevers. Patient was in [facility] from 08/02/2024 to 08/11/2024. He was admitted to the [facility] for right foot swelling and rednesss and fevers. And right foot x-ray showed healed fracture through the midshaft of second metatarsal bone with calcified bridging callus. Pes planus. He was admitted for right foot infection. MRI of the foot was negative for osteomyelitis and showed cellulitis and possible abscess. Status post I&D by podiatry at bedside on August 03 with a deep purulence obtained and sent for culture. Status post I&D with podiatry for sepsis on August 06 and probe to bone very favorable and no clear abscess as suggested by CT scan. During hospital stay he was also completed Tamiflu for influenza. ID suggested Ancef until September 17 and to treat as osteomyelitis for MSSA on wound cultures with 6 weeks of IV antibiotics. On August 07 patient had rash thought to be from Ancef. Rash was worsening after second dose of Ancef and patient was having fevers that thought to be lined up from Ancef doses and was thought possible drug fever. And ID recommended IV Vanco via PICC line. Vancomycin dosing goal AUC 400-600 Mg/liter/hour. And patient was discharged to [facility] on 08/11/2024. At [facility] patient was still having fevers and shortness of breath and erythema around his wound ,does not appear to be receding thought to be spreading. [facility] made ID aware. As per the med rec from the [facility] seems patient had Rocephin. And was sent to our ER today because of fever and altered mental status. Patient can tell his name. Knows that he is in the hospital. Could tell his date of . But could not tell current dates. Denies any cough. Denies headache. Denies chest pain. Denies shortness of breath. Denies belly pain. Status post Guillermina in the ER. Patient seems poor historian at this time. No sacral ulcer seen. Sepsis Bilateral lower extremity cellulitis Right foot diabetic ulcer Recently on [facility] was placed on IV Vanco for 6 weeks until September 17 to treat his osteomyelitis though MRI was negative and abscess was I&D by podiatry at [facility] --Right Foot X ray: No definite radiographic evidence of osteomyelitis as desc ribed. --Venous Doppler:No evidence of deep venous thrombus within the bilateral lower extremities. --Arterial Doppler:Negative right lower extremity arterial evaluation. No occ lusion or significant hemodynamic stenosis with multiphasic waveforms throughout. --CT ABD:No bowel obstruction. Severe hepatic steatosis. Hepatomegaly. Anasarca. Small amount of ascites within the pelvis. -- Blood cultures negative to date -- Urine culture: 10,000 colonies of Heather glabrata IV cefepime discontinued as recommended by infectious disease/neurology Received IV fluids, monitor volume status closely Avoid IV Vanco as trough level high, JUANA Appreciate infectious disease input: Once Vanco trough drops < 15 will start the patient on IV daptomycin. (Will renally dose IV daptomycin through 09/17/24) Appreciate Podiatry Input : Given ongoing treatment, will defer MRI foot for now Continue local wound care Aspiration precautions Vanco trough 18.7 today Continue tube feeds Repeat urine, blood culture pending Likely to start IV daptomycin tomorrow once vancomycin trough levels below 15 Acute metabolic encephalopathy Likely due to above infection Suspected urinary tract infection--Less likely --Head CT:No acute findings in the head/brain. --Urine culture: as above --MRI Brain:No evidence of acute or subacute infarct. Reorient frequently to minimize delirium Repeat CT head showed no acute process -Normal ammonia level -Drug screen negative -VBG showed no hypercarbia -TSH elevated, normal free T4 --Thiamine B1 level pending -EEG: This is an abnormal routine EEG in a patient w altered mental state due to 1. Generalized background slowing suggestive of non specific encephalopathy, 2. Triphasic waves which are non specific but commonly seen in metabolic encephalopathies. --Lamictal levels pending Could not get lumbar puncture due to elevated INR/patient agitated Continue valproic acid Appreciate neurology input Acute kidney injury likely ATN/toxic secondary to infection, vancomycin Cr: 4.4>4.1>4.0 Creatinine was 1.6 on 08/12/2024 --CT ABD:Mild nonspecific perinephric stranding. No hydronephrosis. Simple 2 cm left renal cyst. No follow-up of this simple cyst is necessary. Avoid nephrotoxic agents as able Monitor renal function, urinary output Appreciate nephrology input Bladder scan as needed Metformin, Jardiance, lisinopril on hold Avoid NSAIDs Monitor for volume overload Appreciate nephrology input: Started on D5 water Hypercalcemia Hypernatremia Likely due to dehydration Low PTH Check vitamin D levels Avoid calcium supplements Started on IV fluids as recommended by nephrology Monitor calcium, sodium levels closely Also on free water flushes through NG tube Transaminitis Likely due to sepsis, fatty liver --CT ABD:Hepatic steatosis. Hepatomegaly. Minimal free fluid around the liver and in the pelvis. --Hepatitis panel pending --Gall Bladder USD: Trace ascites. Normal sonographic appearance of the gallbladder. Large fatty liver. --Elevated INR Monitor LFTs Hold Lipitor for now Consulted GI eval Hyponatremia--Resolved Currently hypERnatremic as above Anemia Iron deficiency anemia Anemia of chronic disease No obvious signs of bleeding Vit B12, folate levels reviewed Monitor CBC Started on iron supplements Hypertension Hold lisinopril Continue atenolol with holding parameters Monitor DM II Hold home medications Adjust insulin per protocol to minimize hypoglycemic episodes Monitor blood glucose levels Hyperlipidemia Hold statin due to elevated LFTs History of seizures On Lamictal Valproic acid as above Remote history of lung cancer Treated with chemo as per records DVT Px: Heparin SQ Code Status Full code Disposition To be determined Admission and Anticipated Discharge Date Admission Date: August 14, 2024 Subjective Patient is seen and examined at bedside Mental status remains unchanged lethargic/obtunded, does not follow commands Noted rising LFTs, calcium levels Discussed with nephrology today Vancomycin trough 18.7 Saturating well on room air Gallbladder ultrasound showed no acute pathology Review of Systems Review of Systems: Unobtainable due to reduced consciousness Physical Exam Physical Exam: Physical Exam: Vitals signs as noted above General Appearance:Moderately built and nourished,no distress, confused , Lethargic Head: normocephalic, Atraumatic Eyes: normal inspection, EOMI Neck: supple, Trachea midline Respiratory/Chest: Normal breath sounds, CTA, No accessory muscle use Cardiovascular: S1, S2, No murmur Abdomen/GI:Soft, Non tender, Bowel sounds present, protuberant Extremities/Musculoskeletal:normal inspection, 1-2+ B/L LE edema, erythema, R great toe s/p amputation, R foot ulcer Neurologic/Psych:Lethargic, unable to perform complete neurological exam Skin: normal color, warm Results & Data Results & Data Vital Signs (Past 12 Hours) Vital Signs Temp Pulse Pulse Resp BP BP Pulse Ox 08/19/24 15:03 89 08/19/24 11:35 36.6 C 93 H 20 152/78 H 94 08/19/24 09:10 109 H 08/19/24 09:10 08/19/24 07:07 36.7 C 107 H 21 166/77 H 93 08/19/24 06:00 106 H 28 H 91 08/19/24 05:21 106 H 136/72 08/19/24 05:06 120 H 166/81 H 08/19/24 03:28 36.7 C 110 H 26 H 149/78 H 95 08/19/24 03:25 110 H 149/78 H 08/19/24 03:10 121 H 181/72 H O2 Del Method 08/19/24 15:03 08/19/24 11:35 Room Air 08/19/24 09:10 08/19/24 09:10 Room Air 08/19/24 07:07 Room Air 08/19/24 06:00 Room Air 08/19/24 05:21 08/19/24 05:06 08/19/24 03:28 Room Air 08/19/24 03:25 08/19/24 03:10 Laboratory Results Short CBC 08/19/24 Range/Units 05:44 WBC 7.71 (4.8-10.8) K/ul Hgb 8.9 L (14.0-18.0) g/dl Hct 28.1 L (42.0-52.0) % Plt Count 386 (130-400) K/uL BMP 08/19/24 05:44 Sodium 148 H Potassium 3.2 L Chloride 125 H Carbon Dioxide 21 BUN 28 H Creatinine 4.02 H Glucose 106 H Calcium 11.5 H Liver Function 08/19/24 Range/Units 05:44 Total Bilirubin 2.2 H (0.2-1.0) mg/dl AST 145 H (13-39) U/L ALT 88 H (7-52) U/L Alkaline Phosphatase 221 H (34-104) U/L Albumin 1.9 L (3.4-5.0) gm/dl Urine 08/19/24 Range/Units Unknown Urine Color Dark Yellow Urine Appearance Turbid A (Clear) Urine pH 5.5 (4.5-7.5) Ur Specific [place] 1.019 (1.000-1.030) Urine Protein 3+ H (Negative) Urine Glucose (UA) Negative (Negative)
--- NOTE | 2024-08-19 16:06 | Nephrology Progress Note ---
Date of Service August 19, 2024 Assessment & Plan Admission and Anticipated Discharge Date Admission Date: August 14, 2024 Subjective Assessment & Plan (1) JUANA (acute kidney injury): Sudden severe JUANA from ATN with Sepsis. ATN could be Ischemic or toxic in the setting of Sepsis/vanco. From normal creat went to 4.5 within a span of 72 hrs. However since then No further rise. Also making urine and no major issues with fluid overload Obstruction already ruled out. I and O charting. Daily renal panel and CBC. maintain good hemodynamics. Hold metformin, Jardiance, Lisinopril. No NSAIDS, no contrast agents or Diuretics for now. As much as possible use alternate Abx--no vancomycin. Creat very slightly lower than yesterday and is now 4 but he is making more urine and had 2300 ml yesterday. ATN has likely peaked. No dialysis needed today however he is not out of danger yet given he is still very sick and not in full recovery path. Also creat just seems stuck in the low 4's for many days now. Na now high at 148 + Ca went up a bit--Add d5w at 125 ml/hr but will slow it down to 80 ml/hr now. On Tube feed now + Free Water flush to 100 ml q6hr. Still very confused, agitated and encephalopathic--EEG reviewed and also neurology note. LP could not be done because of high INR--very perplexing ?? (2) Sepsis: Source is diabetic Ulcer with recent complications. he seems very confused. Reviewed neuro note also. S--Still very confused, agitated and encephalopathic Vital signs are acceptable. Making urine--628 ml yesterday-> than prior day ROS---Still confused and restless. Urine 675 ml yesterday. He appeared to be sick. BP is now starting to be high. Physical Exam Physical Exam: General Appearance: mild distress, confused Head: normocephalic, Atraumatic Neck: supple, Respiratory/Chest: Normal breath sounds, Clear, No accessory muscle use Cardiovascular: S1, S2, No murmur Abdomen/GI:Soft, Non tender, Extremities/Musculoskeletal:normal inspection, 1+ B/L LE edema, erythema, R great toe s/p amputation, R foot ulcer Results & Data Vital Signs (Past 12 Hours) Vital Signs Temp Pulse Pulse Resp BP BP Pulse Ox 08/19/24 15:16 37.4 C 88 19 155/70 H 95 08/19/24 15:03 89 08/19/24 11:35 36.6 C 93 H 20 152/78 H 94 08/19/24 09:10 109 H 08/19/24 09:10 08/19/24 07:07 36.7 C 107 H 21 166/77 H 93 08/19/24 06:00 106 H 28 H 91 08/19/24 05:21 106 H 136/72 08/19/24 05:06 120 H 166/81 H O2 Del Method 08/19/24 15:16 Room Air 08/19/24 15:03 08/19/24 11:35 Room Air 08/19/24 09:10 08/19/24 09:10 Room Air 08/19/24 07:07 Room Air 08/19/24 06:00 Room Air 08/19/24 05:21 08/19/24 05:06
[2024-08-19 21:51] LABS: Base Excess VBG -11.1 mEq/L; HCO3 VBG 15 mmol/L; Oxygen Saturation VBG 98.2 %; PCO2 VBG 36 mmHg (38-50); PO2 VBG 79 mmHg; pH VBG 7.24 (7.36-7.41)
[2024-08-19 21:59] LABS: BUN Creatinine Ratio 6.7 (10-20); Calcium 12.2 mg/dl (8.6-10.3); Creatinine Clr Calc Pharmacy 20.1 ml/min; Potassium 3.4 mmol/L (3.5-5.1)
--- NOTE | 2024-08-19 22:07 | Communication Note ---
Date of Service: August 19, 2024 Patient tachycardic, tachypneic and febrile overnight. Daptomycin and Zosyn administered. (Daptomycin currently on hold due to Vanco trough levels greater than 15 as per a.m. provider note.) Worsening hypercalcemia noted on repeat blood work. Hold tube feed for now given calcium content of tube feed. Patient later noted to be coughing out tube feed liquid as per RN. Chest x-ray as per my interpretation bibasilar infiltrates, right elevated hemidiaphragm Zosyn for possible HAP/aspiration pneumonia.
--- NOTE | 2024-08-19 23:25 | XRay Report ---
Exam(s): XR CXR 1 VIEW EXAM: XR Chest, 1 View CLINICAL HISTORY: sob. TECHNIQUE: Frontal view of the chest. COMPARISON: 0508 hrs. FINDINGS: Lungs: Stable asymmetric elevation of the right hemidiaphragm. Improved lung expansion. Similar to slightly improved subsegmental changes involving the right perihilar and infrahilar region. The left lung is now well aerated. The pulmonary vasculature appears slightly less prominent/crowded. Pleural space: Unremarkable. No pneumothorax. No large pleural effusion. Heart: The cardiac silhouette remains prominent. Mediastinum: The mediastinal contours are thought to be stable, accounting for obliquity, less prominent. Bones/joints: Unremarkable. No acute fracture. Tubes, lines and devices: Nasogastric tube tip cannot be seen but is below the diaphragm. A right arm PICC is identified with tip in the superior right atrium, stable. IMPRESSION: Stable asymmetric elevation of the right hemidiaphragm. Improved lung expansion. Similar to slightly improved subsegmental changes involving the right perihilar and infrahilar region. The left lung is now well aerated. The pulmonary vasculature appears slightly less prominent/crowded. No pneumothorax. Electronically signed by: Donald Head MD 08/19/24 23:24 PM
[2024-08-19] MEDS: PIPERACILLIN/TAZOBACTAM 4.5 GM/100 ML BAG IV ONE (23:28)
--- NOTE | 2024-08-19 23:33 | CT Scan Report ---
Exam(s): CT HEAD Without Contrast EXAM: CT Head Without Intravenous Contrast CLINICAL HISTORY: ams, coagulopathy. TECHNIQUE: Axial computed tomography images of the head/brain without intravenous contrast. CTDI is 95.63 mGy and DLP is 1574.9 mGy-cm. Automated exposure control was utilized for the study. A dose lowering technique was utilized adhering to the principles of ALARA. COMPARISON: CT head without contrast 08/14/2024; MRI to 2024 FINDINGS: Limitations: There is motion artifact, despite repeated imaging at times, which degrades image quality on multiple image slices. Brain: No definite intracranial hemorrhage; evaluation for subtle extra-axial pathology along the margins of the parenchyma is limited in regions of streak motion artifact. No significant mass effect identified. No significant white matter disease. Ventricles: No midline shift or significant effacement of the ventricles. Bones/joints: No definite skull fracture. Soft tissues: Unremarkable. Sinuses: Unremarkable as visualized. No acute sinusitis. Mastoid air cells: Unremarkable as visualized. No mastoid effusion. Tubes, lines and devices: A nasogastric tube is noted in the right nasopharynx. IMPRESSION: Accounting for limitations with motion artifact, no definite acute intracranial process identified. Electronically signed by: Donald Head MD 08/19/24 23:32 PM
[2024-08-20] MEDS: POTASSIUM CHLORIDE / WTR 10 MEQ/100 ML PLCT IV SCH (00:05)
[2024-08-20] MEDS: DAPTOmycin 450 MG in SYRINGE 0 ML IV STA (00:06)
[2024-08-20] MEDS: ALBUMIN 25% 25 GM/100 ML VIAL IV ONE (00:29)
[2024-08-20] MEDS: IPRATROPIUM BROMIDE NEB SOLN 0.02% 0.5MG/2.5ML VIAL INH STA (03:36)
[2024-08-20] MEDS: LEVALBUTEROL 1.25 MG/3 ML NEB NEB STA (03:36)
--- NOTE | 2024-08-20 05:22 | XRay Report ---
EXAM: XR chest 1V portable CLINICAL HISTORY: cough, bile. TECHNIQUE: An X-ray image of the chest is obtained in AP projection. COMPARISON: 08/19/2024 FINDINGS: NG tube noted in situ. The tip is seen below the hemidiaphragm. Unchanged. Right PICC is noted. The tip is seen in the cavoatrial junction. Pulmonary Parenchyma: Slight stable appearance of bilateral mild pleural effusion/thickening. Small right basilar linear opacities. This could be due to atelectasis. Elevation of right hemidiaphragm. Heart and Mediastinum: Increased cardiothoracic ratio. This could be projectional. Perihilar vascular congestion. No mediastinal widening or masses. No hilar or mediastinal lymphadenopathy. Bony Thorax: Bony thorax appears intact without fractures or deformities. Soft Tissues: Soft tissues overlying the chest wall are unremarkable. IMPRESSION: 1. NG tube noted in situ. Unchanged. 2. Right PICC noted in situ. Unchanged. 3. Stable appearance of previously noted bilateral mild pleural effusion/thickening. 4. Small right basal opacities, unchanged, could be due to atelectasis. The possibility of evolving infection or inflammatory process cannot be excluded. Need clinical correlation. 5. Elevation of right hemidiaphragm. Unchanged. Electronically signed by Rajani Jenkins 08-20-2024 05:22 AM
[2024-08-20] MEDS: PIPERACILLIN/TAZOBACTAM 4.5 GM/100 ML BAG IV SCH (08:00)
[2024-08-20 08:14] LABS: Base Excess VBG -5.6 mEq/L; HCO3 VBG 19 mmol/L; Oxygen Saturation VBG < 60.0 %; PCO2 VBG 35 mmHg (38-50); PO2 VBG < 20 mmHg; pH VBG 7.35 (7.36-7.41)
[2024-08-20 08:50] LABS: INR 2.1 (0.9-1.1); Prothrombin Time 21.8 Seconds (9.0-12.0)
[2024-08-20 09:28] LABS: Albumin Level 2.4 gm/dl (3.4-5.0); BUN Creatinine Ratio 6.9 (10-20); Bilirubin Direct 1.8 mg/dl (0-0.2); Bilirubin,Total 3.1 mg/dl (0.2-1.0); Calcium 12.8 mg/dl (8.6-10.3); Creatinine Clr Calc Pharmacy 19.9 ml/min; Phosphorus 3.3 mg/dl (2.5-4.9); Total Protein 6.5 gm/dl (6.0-8.3)
[2024-08-20 09:36] LABS: Hep B Surface Ag with confirm Negative (Negative)
[2024-08-20 09:41] LABS: Hep C Ab Rflx HepCQuant RNA Negative (Negative)
--- NOTE | 2024-08-20 10:50 | Gastrointestinal Consultation ---
Date of Consultation August 20, 2024 Assessment & Plan (1) Transaminitis: Patient currently admitted for altered mental status. He has had recent admission to [facility] for cellulitis, flu, and osteomyelitis. Currently admitted with sepsis. GI asked to see for transaminitis. - await results of the acute hep panel. - continue to follow LFTs to trend. - further recommendations to follow, see MD baez. Supervising Physician Co-Signing Physician Notes Increased liver function test. This is on the background of what appears to be severe hepatic steatosis. This may represent concurrent infectious sepsis process on the background of his fatty liver. Will continue to follow. Antibiotics may also play a role such as ceftriaxone and increased liver function test though I believe the former more likely There is no clear evidence of biliary dilatation to suggest an obstructive phenomenon. Focus should be on the management of his systemic problems and I believe the liver enzymes will improve on their own. He is hepatitis AB and C-. I see the question of HSv encephalitis. Though liver enzymes and HSV tend to be much higher than his often in the thousands. Will continue to follow History of Present Illness Reason for Consultation: transaminitis Requesting Physician: Speedy Canchola MD Attending Physician: Speedy Canchola MD History of Present Illness Patient is a 63 year old male with a past medical history significant for DM II, diabetic ulcer of right midfoot, dyslipidemia, hypophosphatemia, hypertension, history of C. difficile colitis, oral thrush, cellulitis of right leg, abscess of right foot, absent seizures, history of lung cancer, who was sent in by [facility] rehab because of confusion and fevers. Patient was in [facility] from 08/02/2024 to 08/11/2024 where he was admitted for right foot swelling, rednesss, fevers, and right foot infection. MRI of the foot was negative for osteomyelitis and showed cellulitis and possible abscess. Status post I&D by podiatry at bedside on August 03 with a deep purulence obtained and sent for culture. Status post I&D with podiatry for sepsis on August 06 and probe to bone very favorable and no clear abscess as suggested by CT scan. During hospital stay he was also completed Tamiflu for influenza. ID suggested Ancef until September 17 and to treat as osteomyelitis for MSSA on wound cultures with 6 weeks of IV antibiotics. On February 11 patient had rash thought to be secondary from the Ancef. Rash was worsening after second dose of Ancef and patient was having fevers that thought to be lined up from Ancef doses and was thought this was possibly a drug indnuced fever. ID recommended IV Vanco via PICC line. Patient was discharged to [facility] on 08/11/2024. At [facility] patient was still having fevers and shortness of breath and erythema around his wound. He was sent to our ER 08/14 because of fever and altered mental status. Patient is unable to be woken up to provide any history. As such, history is obtained through the chart and through Nursing. GI consulted for transaminitis. Per nursing, it is felt some of his transaminitis may have been secondary to different medications. Per nursing, patient was apparently using illegal steroids prior to coming to the hospital. no other current GI concerns. Hep panel pending. 08/19/24 t bili 2.2, AST 145, ALT 88, ALK 221, NH3 70, INR 2.7. CT 08/17/24 severe hepatic steatosis. Hepatomegaly. Minimal free fluid around the liver and in the pelvis. Gall Bladder US 08/19/24 Trace ascites. Normal sonographic appearance of the gallbladder. Large fatty liver. Allergies Allergy/AdvReac Type Severity Reaction Status Date / Time cefazolin Allergy Intermediate Rash Verified 08/14/24 23:14 Home Medications Medication Instructions Recorded Confirmed Type Lactobacillus acidophilus 10 10,000 mmu cells PO DAILY 08/14/24 08/14/24 History billion cell capsule (Probiotic) aspirin 81 mg tablet,delayed 81 mg PO DAILY 08/14/24 08/14/24 History release atenolol 100 mg tablet 100 mg PO DAILY 08/14/24 08/14/24 History atorvastatin 20 mg tablet 20 mg PO DAILY 08/14/24 08/14/24 History bisacodyl 10 mg rectal suppository 10 mg AR DAILY PRN Constipation 08/14/24 08/14/24 History (Dulcolax (bisacodyl)) ceftriaxone 1 gram intravenous 1 g IV DAILY 08/14/24 08/14/24 History solution cyanocobalamin (vitamin B-12) 500 500 mcg PO DAILY 08/14/24 08/14/24 History mcg tablet empagliflozin 25 mg tablet 25 mg PO DAILY 08/14/24 08/14/24 History gabapentin 300 mg capsule 600 mg PO HS 08/14/24 08/14/24 History hydroxyzine HCl 10 mg tablet 10 mg PO HS PRN Anxiety 08/14/24 08/14/24 History lamotrigine 100 mg tablet 100 mg PO BID 08/14/24 08/14/24 History (Lamictal) lisinopril 20 mg tablet 20 mg PO DAILY 08/14/24 08/14/24 History metformin 500 mg tablet 500 mg PO BID 08/14/24 08/14/24 History multivitamin with minerals 1 tab PO DAILY 08/14/24 08/14/24 History ondansetron 4 mg disintegrating 4 mg PO Q8H PRN Nausea And Vomiting 08/14/24 08/14/24 History tablet oxycodone 5 mg tablet 5 mg PO Q6H PRN Severe Pain (Scale 08/14/24 08/14/24 History Score 7-10) vancomycin 1,000 mg intravenous 1 g IV UD 08/14/24 08/14/24 History injection Patient History Social History Smoking Status: Never smoker Hx Alcohol Use: No Hx Substance Use: No Preferred Language: Bengali Communication Ability: Impaired System Support Technician Required: No Beliefs That Will Affect Care: None Current Living Situation: Personal Care Facility Current Living Situation Comment: Lives at [facility] currently Other Information That Helps Us Care for You: No Feels Safe at Home: Yes Safety Concerns: Feels Safe At This Time Assistive Devices: None Review of Systems Review of Systems: Unobtainable due to cognitive status Physical Exam Respiratory: normal respiratory effort. Cardiovascular: regular rate and rhythm Gastrointestinal (Abdomen): abdomen soft, normal bowel sounds. Skin: no jaundice Psychiatric: sleeping Results & Data Vital Signs (Past 12 Hours) Vital Signs Temp Pulse Resp BP Pulse Ox O2 Del Method O2 Flow Rate 08/20/24 07:45 99.0 F 87 18 159/80 H 98 Nasal Cannula 4 08/20/24 05:41 99.1 F 08/20/24 03:38 84 28 H 95 Nasal Cannula 4 08/20/24 03:30 98.8 F 84 16 139/64 32 L Nasal Cannula 4 08/20/24 00:39 Oxymask 4 08/20/24 00:35 98.6 F 08/20/24 00:31 79 34 H 96/56 L 100 Nasal Cannula 4 08/19/24 22:58 99.3 F 88 38 H 97/58 L 95 Nasal Cannula 4 Coding Level of Care Code 93591 INT INP/OBS CARE 255MIN Diagnoses Transaminitis R74.01
[2024-08-20 11:02] LABS: Base Excess ABG -7.1 mEq/L (-9-1.8); HCO3 ABG 17 mmol/L (19-24); Oxygen Saturation ABG 97.5 % (90-95); PCO2 ABG 28 mmHg (35-46); PO2 ABG 79 mmHg (80-95); pH ABG 7.38 (7.35-7.45)
[2024-08-20 12:52] LABS: Allen Test Pos (Pos)
[2024-08-20] MEDS: LACTULOSE 200GM/700ML WTR ENEMA PR ONE (14:54)
--- NOTE | 2024-08-20 15:14 | Nephrology Progress Note ---
Date of Service August 20, 2024 Assessment & Plan (1) Hypercalcemia: Plan: corrected Ca 13.8, Ca 12.8 on 08/20; 25 OH D 26 PTH 7 on 08/19 calcitonin IM 400 units q 12h x 2 days lower dose zoledronic acid > 2 mg IV (reduced dose run slowly over 60 min) no obvious meds causing this, at least not this admission hold IVF for now order PTHrp <<appreciate hospitalist doing this check phos in AM - order in Care coordinated w/ Dr Canchola via TText re IVF, calcium medications and further work ups (2) JUANA (acute kidney injury): Plan: stage 3 nonoliguric JUANA from ATN w/ sepsis. creat essentially stable since 08/15. 2.6L UOP past ATN could be Ischemic or toxic in the setting of Sepsis/vanco. From normal creat went to 4.5 within a span of 48 hrs. However since then No further rise and actually slight drop. Still no major issues with fluid overload and/or lytes except Ca. No need of Dialysis however he is not out of danger yet given he is still very sick and not in full recovery path. Obstruction already ruled out. >>IVF have been stopped; resonable to hold for now; 5L positive so far this admission I and O charting. Daily renal panel and CBC. maintain good hemodynamics. Hold metformin, Jardiance, Lisinopril. No NSAIDS, no contrast agents or Diuretics for now. As much as possible use alternate Abx--no vancomycin. (3) Sepsis: Plan: Source is diabetic Ulcer with recent complications now +/- aspiration w/ TF Admission and Anticipated Discharge Date Admission Date: August 14, 2024 Subjective seen at approx 1245 this PM; delayed entry; still w/draws to painful stim only per RN; spiking F to 38.5 today; reported ON that pt was coughing up TF which have been held for this and for calcium content; had large K supplementation over night w/ recheck K 4 Review of Systems 2 Review of Systems: Unobtainable due to reduced consciousness Physical Exam 2 Constitutional: well developed, well nourished and + altered mental status; no acute distress ENMT: Mouth: + dry oral mucous membranes NGT present Respiratory: normal respiratory effort and + tachypneic; no respiratory distress Auscultation: + diminished lung sounds Cardiovascular: Rate/Rhythm: regular rate and regular rhythm Extremities: n o edema Gastrointestinal (Abdomen): Inspection/Auscultation: normal bowel sounds P ercussion/Palpation: abdomen soft; abdomen nontender Skin: no rashes, warm and dry Neurologic: obtunded Results & Data Vital Signs (Past 12 Hours) Vital Signs Temp Pulse Pulse Resp BP Pulse Ox O2 Del Method 08/20/24 14:14 37.4 C 78 36 H 122/70 96 Room Air 08/20/24 14:07 Nasal Cannula 08/20/24 13:47 38.5 C H 83 40 H 147/76 H 97 Nasal Cannula 08/20/24 11:40 37.4 C 83 20 138/64 100 Nasal Cannula 08/20/24 07:45 37.2 C 87 18 159/80 H 98 Nasal Cannula 08/20/24 07:00 87 08/20/24 05:41 37.3 C 08/20/24 03:38 84 28 H 95 Nasal Cannula 08/20/24 03:30 37.1 C 84 16 139/64 32 L Nasal Cannula O2 Flow Rate 08/20/24 14:14 4 08/20/24 14:07 4 08/20/24 13:47 4 08/20/24 11:40 4 08/20/24 07:45 4 08/20/24 07:00 08/20/24 05:41 08/20/24 03:38 4 08/20/24 03:30 4 Laboratory Results 08/19/24 05:44 08/20/24 07:42 Ca12.8, cCa 13.8 Diagnostic Findings cxr today small bl pl effusions
[2024-08-20] MEDS: CALCITONIN SALMON 400 UNITS/2 ML IM SCH ×2 (16:46→16:54)
[2024-08-20] MEDS: ZOLEDRONIC ACID 2 MG in SODIUM CHLORIDE 0.9% 100 ML IV ONE (18:09)
--- NOTE | 2024-08-20 18:28 | Hospitalist Progress Note ---
Date of Service August 20, 2024 Assessment & Plan (1) Sepsis: Plan: 63-year-old male with past medical history significant for type 2 diabetes, diabetic ulcer of right midfoot, dyslipidemia, hypophosphatemia, hypertension, history of C. difficile colitis, oral thrush, cellulitis of right leg, abscess of right foot, absent seizures, history of lung cancer, was sent in by [facility] rehab because of confusion and fevers. Patient was in [facility] from 08/02/2024 to 08/11/2024. He was admitted to the [facility] for right foot swelling and rednesss and fevers. And right foot x-ray showed healed fracture through the midshaft of second metatarsal bone with calcified bridging callus. Pes planus. He was admitted for right foot infection. MRI of the foot was negative for osteomyelitis and showed cellulitis and possible abscess. Status post I&D by podiatry at bedside on August 03 with a deep purulence obtained and sent for culture. Status post I&D with podiatry for sepsis on August 06 and probe to bone very favorable and no clear abscess as suggested by CT scan. During hospital stay he was also completed Tamiflu for influenza. ID suggested Ancef until September 17 and to treat as osteomyelitis for MSSA on wound cultures with 6 weeks of IV antibiotics. On August 07 patient had rash thought to be from Ancef. Rash was worsening after second dose of Ancef and patient was having fevers that thought to be lined up from Ancef doses and was thought possible drug fever. And ID recommended IV Vanco via PICC line. Vancomycin dosing goal AUC 400-600 Mg/liter/hour. And patient was discharged to [facility] on 08/11/2024. At [facility] patient was still having fevers and shortness of breath and erythema around his wound ,does not appear to be receding thought to be spreading. [facility] made ID aware. As per the med rec from the [facility] seems patient had Rocephin. And was sent to our ER today because of fever and altered mental status. Patient can tell his name. Knows that he is in the hospital. Could tell his date of . But could not tell current dates. Denies any cough. Denies headache. Denies chest pain. Denies shortness of breath. Denies belly pain. Status post Guillermina in the ER. Patient seems poor historian at this time. No sacral ulcer seen. Sepsis Bilateral lower extremity cellulitis Right foot diabetic ulcer Recently on [facility] was placed on IV Vanco for 6 weeks until September 17 to treat his osteomyelitis though MRI was negative and abscess was I&D by podiatry at [facility] --Right Foot X ray: No definite radiographic evidence of osteomyelitis as desc ribed. --Venous Doppler:No evidence of deep venous thrombus within the bilateral lower extremities. --Arterial Doppler:Negative right lower extremity arterial evaluation. No occ lusion or significant hemodynamic stenosis with multiphasic waveforms throughout. --CT ABD:No bowel obstruction. Severe hepatic steatosis. Hepatomegaly. Anasarca. Small amount of ascites within the pelvis. -- Blood cultures negative to date -- Urine culture: 10,000 colonies of Heather glabrata IV cefepime discontinued as recommended by infectious disease/neurology Received IV fluids, monitor volume status closely Avoid IV Vanco as trough level high, JUANA Appreciate infectious disease input: Once Vanco trough drops < 15 will start the patient on IV daptomycin. (Will renally dose IV daptomycin through 09/17/24) Appreciate Podiatry Input : Given ongoing treatment, will defer MRI foot for now Continue local wound care Aspiration precautions Vanco trough 14.2 on 08/20/24 Continue tube feeds Repeat urine, blood culture negative to date Started on IV daptomycin per ID--renally dosed Also on IV Zosyn for possible aspiration Acute metabolic encephalopathy Likely due to above infection Suspected urinary tract infection--Less likely --Head CT:No acute findings in the head/brain. --Urine culture: as above --MRI Brain:No evidence of acute or subacute infarct. Reorient frequently to minimize delirium Repeat CT head showed no acute process -Normal ammonia level -Drug screen negative -VBG showed no hypercarbia -TSH elevated, normal free T4 --Thiamine B1 level pending -EEG: This is an abnormal routine EEG in a patient w altered mental state due to 1. Generalized background slowing suggestive of non specific encephalopathy, 2. Triphasic waves which are non specific but commonly seen in metabolic encephalopathies. --Lamictal levels pending --Elevated INR Could not get lumbar puncture due to elevated INR/patient agitated Given worsening LFTs, no seizure activity on EEG, will hold valproic acid for now Appreciate neurology input Will give a dose of lactulose, vitamin K today Acute kidney injury likely ATN/toxic secondary to infection, vancomycin Cr: 4.4>4.1>4.0> 4.2 Creatinine was 1.6 on 08/12/2024 --CT ABD:Mild nonspecific perinephric stranding. No hydronephrosis. Simple 2 cm left renal cyst. No follow-up of this simple cyst is necessary. Avoid nephrotoxic agents as able Monitor renal function, urinary output Bladder scan as needed Metformin, Jardiance, lisinopril on hold Avoid NSAIDs Monitor for volume status Received IV fluid Appreciate nephrology input Hypercalcemia Hypernatremia Likely due to dehydration Low PTH, vitamin D levels Avoid calcium supplements Started on IV fluids as recommended by nephrology Monitor electrolytes closely Also on free water flushes through NG tube Started on calcitonin, Zometa Monitor calcium levels Transaminitis Likely due to sepsis, fatty liver --CT ABD:Hepatic steatosis. Hepatomegaly. Minimal free fluid around the liver and in the pelvis. --Hepatitis panel pending --Gall Bladder USD: Trace ascites. Normal sonographic appearance of the gallbladder. Large fatty liver. --Elevated INR Monitor LFTs Hold Lipitor for now GI consult Valproate held due to worsening LFTs Hyponatremia--Resolved Currently hypernatremic as above Anemia Iron deficiency anemia Anemia of chronic disease No obvious signs of bleeding Vit B12, folate levels reviewed Monitor CBC Started on iron supplements Hypertension Hold lisinopril Continue atenolol with holding parameters Monitor DM II Hold home medications Adjust insulin per protocol to minimize hypoglycemic episodes Monitor blood glucose levels Hyperlipidemia Hold statin due to elevated LFTs History of seizures On Lamictal Monitor Remote history of lung cancer Treated with chemo as per records DVT Px: Heparin SQ Code Status Full code Disposition To be determined Admission and Anticipated Discharge Date Admission Date: August 14, 2024 Subjective Patient is seen and examined at bedside Mental status remains unchanged Remains obtunded LFTs, calcium, sodium levels worsening Patient coughed tube feeds liquid overnight Empirically started on Zosyn Discussed with patient's family at bedside in detail Review of Systems Review of Systems: Unobtainable due to reduced consciousness Physical Exam Physical Exam: Physical Exam: Vitals signs as noted above General Appearance:Moderately built and nourished,no distress, confused , Obtunded Head: normocephalic, Atraumatic Eyes: normal inspection, EOMI Neck: supple, Trachea midline Respiratory/Chest: Normal breath sounds, CTA, No accessory muscle use Cardiovascular: S1, S2, No murmur Abdomen/GI:Soft, Non tender, Bowel sounds present, protuberant Extremities/Musculoskeletal:normal inspection, 1-2+ B/L LE edema, erythema, R great toe s/p amputation, R foot ulcer Neurologic/Psych:Obtunded, unable to perform complete neurological exam Skin: normal color, warm Results & Data Results & Data Vital Signs (Past 12 Hours) Vital Signs Temp Pulse Pulse Resp BP Pulse Ox O2 Del Method 08/20/24 14:14 37.4 C 78 36 H 122/70 96 Room Air 08/20/24 14:07 Nasal Cannula 08/20/24 13:47 38.5 C H 83 40 H 147/76 H 97 Nasal Cannula 08/20/24 11:40 37.4 C 83 20 138/64 100 Nasal Cannula 08/20/24 07:45 37.2 C 87 18 159/80 H 98 Nasal Cannula 08/20/24 07:00 87 O2 Flow Rate 08/20/24 14:14 4 08/20/24 14:07 4 08/20/24 13:47 4 08/20/24 11:40 4 08/20/24 07:45 4 08/20/24 07:00
[2024-08-20] MEDS: PHYTONADIONE 5 MG TAB PO STA (18:42)
[2024-08-20] MEDS: PHYTONADIONE 5 MG in DEXTROSE 5% 50 ML IV ONE (18:49)
[2024-08-20] MEDS: ALBUT/IPRATROP 3MG/0.5MG NEB 3 ML VIAL NEB STA (21:26)
--- NOTE | 2024-08-20 22:06 | XRay Report ---
Exam(s): XR CXR 1 VIEW EXAM: XR Chest, 1 View CLINICAL HISTORY: Reason for exam: sob. TECHNIQUE: Frontal view of the chest. COMPARISON: 08/20/2024 FINDINGS: Lungs: Volume loss in the right lung. No interstitial edema. Left lung is clear. Pleural space: No pleural effusion. No pneumothorax. Heart: Unremarkable. No cardiomegaly. Tubes, lines and devices: Esophagogastric tube terminates below the diaphragm. Right upper extremity PICC terminates within the right atrium. Upper abdomen: Elevated right hemidiaphragm. IMPRESSION: No significant interval change. Electronically signed by: Ken Goldstein MD 08/20/24 22:05 PM
[2024-08-21] MEDS: ALTEPLASE, RECOMBINANT 1 MG/ML 2ML VIAL INSTIL ONE (02:45)
[2024-08-21] MEDS: LEVALBUTEROL 1.25 MG/3 ML NEB ONE (07:10)
[2024-08-21] MEDS: IPRATROPIUM BROMIDE NEB SOLN 0.02% 0.5MG/2.5ML VIAL INH SCH ×2 (07:11→14:52)
[2024-08-21] MEDS: LEVALBUTEROL 1.25 MG/3 ML NEB NEB SCH ×2 (07:11→14:52)
[2024-08-21 07:59] LABS: Hematocrit (blood only) 30.6 % (42.0-52.0); Hemoglobin 9.5 g/dl (14.0-18.0); Mean Corpuscular Hemoglobin 29.3 pg (25.0-34.0); Mean Corpuscular Volume 94.4 fL (80.0-100.0); Mean Platelet Volume 9.6 fL (9.4-12.4); Nucleated RBC # (auto) 0.07 K/uL (0.00-0.12); Nucleated RBC % (auto) 0.7 %; Platelet Count 333 K/uL (130-400); RDW Coefficient of Variation 17.5 % (11.5-14.5); RDW Standard Deviation 57.1 fL (36.4-46.3); Red Blood Count 3.24 M/uL (4.70-6.10); White Blood Count 9.74 K/ul (4.8-10.8)
[2024-08-21 08:09] LABS: INR 1.6 (0.9-1.1); Prothrombin Time 16.6 Seconds (9.0-12.0)
[2024-08-21 08:17] LABS: BUN Creatinine Ratio 8.5 (10-20); Bilirubin Direct 1.8 mg/dl (0-0.2); Bilirubin,Total 2.8 mg/dl (0.2-1.0); Calcium 12.4 mg/dl (8.6-10.3); Creatinine Clr Calc Pharmacy 19.6 ml/min; Phosphorus 3.9 mg/dl (2.5-4.9); Potassium 3.6 mmol/L (3.5-5.1); Total Protein 6.3 gm/dl (6.0-8.3)
--- NOTE | 2024-08-21 09:00 | XRay Report ---
EXAM: XR chest 1V portable CLINICAL HISTORY: check PICC line placement. TECHNIQUE: An X-ray image of the chest is obtained in AP projection. COMPARISON: Prior study dated 08/20/2024 FINDINGS: NG tube noted in situ. The tip is seen below the hemidiaphragm. Unchanged. Right PICC is noted. The tip is seen in the cavoatrial junction. Pulmonary Parenchyma: Small right basal linear opacities. This could be due to atelectasis. Elevation of right hemidiaphragm. Obscured both costophrenic angles Heart and Mediastinum: Increased cardiothoracic ratio. This could be projectional. Perihilar vascular congestion. No mediastinal widening or masses. No hilar or mediastinal lymphadenopathy. Bony Thorax: Bony thorax appears intact without fractures or deformities. Soft Tissues: Soft tissues overlying the chest wall are unremarkable. IMPRESSION: 1. NG tube noted in place. The tip is seen below the hemidiaphragm. Unchanged. 2. Right PICC is noted with tip is seen in the cavoatrial junction. (unchanged) 3. Small right basal linear opacities. This could be due to atelectasis. 4. Elevation of right hemidiaphragm (unchanged) 5. Perihilar vascular congestion. 6. No interval changes. Electronically signed by Rajani Jenkins 08-21-2024 08:59 AM
--- NOTE | 2024-08-21 10:23 | Nephrology Progress Note ---
Date of Service August 21, 2024 Assessment & Plan (1) Hypercalcemia: Plan: corrected Ca 13.8, Ca 12.8 on 08/20; Ca 12.4 on 08/21; 25 OH D 26; phos 3.9 PTH 7 on 08/19 calcitonin IM 400 units q 12h x 2 days - started 08/20 lower dose zoledronic acid > 2 mg IV (reduced dose run slowly over 60 min) given 08/20 no obvious meds causing this, at least not this admission; notably at [facility] admission 08/02-08/11 he was consistently hypophosphatemic and hypocalcemic hold IVF for now order PTHrp <<appreciate hospitalist doing this check phos in AM - order in Care coordinated w/ Dr Canchola in person re IVF, calcium medications, adding AIN to ddx and further work ups (2) JUANA (acute kidney injury): Plan: slightly improving stage 3 nonoliguric JUANA from ATN w/ sepsis; AIN is another possibility here . creat essentially stable since 08/15. 2.1L UOP past 24 hrs Admitted [facility] 08/02-08/11 >> Date Creat Ca C02 consistently 18-19 on these dates; phos in high ones 08/06-08/10 08/08 0.8 7.5 08/09 1.0 7.5 08/10 1.6 6.8 08/11 2.8 6.9 Also during [facility] admission had 08/07 drug reaction to ANCEF w/ rash and F > rounding team thought this might be drug fever ATN could be Ischemic or toxic in the setting of Sepsis/vanco. acute interstitial nephritis is also on differential; reluctant to give steroids in setting of therapy for OM and concerns for aspiration PNA Admitting creatinine on 08/13 4.5, which was peak value no major issues with fluid overload and/or lytes except Ca. No need of Dialysis however he is not out of danger yet given he is still very sick and not in full recovery path. Obstruction already ruled out. >>IVF have been stopped; resonable to hold for now; 5L positive so far this admission >>ordered CBC/Diff for am; ordered urine eos x 2 checks, ordered prot/creat assay; did have some eosinophilia a few days back I and O charting. Daily renal panel and CBC. maintain good hemodynamics. Hold metformin, Jardiance, Lisinopril. No NSAIDS, no contrast agents or Diuretics for now. As much as possible use alternate Abx--no vancomycin. (3) Sepsis: Plan: Source is diabetic Ulcer/OM with recent complications now +/- aspiration w/ TF versus ? encephalitis or other? >>he did have C glabrata >100K on urine cx at admission and had thrush at [facility] > ordered fungal blood cx >hopefully can get LP Admission and Anticipated Discharge Date Admission Date: August 14, 2024 Subjective no interval events clinically; no change in neuro status; remains very tachypneic 18-40 RR Review of Systems 2 Review of Systems: Unobtainable due to reduced consciousness Physical Exam 2 Constitutional: well developed, well nourished and + altered mental status; no acute distress ENMT: Mouth: + dry oral mucous membranes Neck: no nuchal rigidity Respiratory: normal respiratory effort and + tachypneic; no respiratory distress Auscultation: + diminished lung sounds Cardiovascular: Rate/Rhythm: regular rate and regular rhythm Extremities: n o edema Gastrointestinal (Abdomen): Inspection/Auscultation: normal bowel sounds P ercussion/Palpation: abdomen soft; abdomen nontender Skin: no rashes, warm and dry Results & Data Vital Signs (Past 12 Hours) Vital Signs Temp Pulse Pulse Resp BP Pulse Ox O2 Del Method 08/21/24 09:42 83 26 H 93 Nasal Cannula 08/21/24 07:33 36.7 C 82 20 172/80 H 94 Nasal Cannula 08/21/24 07:27 81 08/21/24 07:11 86 26 H 90 Nasal Cannula 08/21/24 03:00 36.4 C L 81 32 H 164/88 H 96 Nasal Cannula 08/20/24 23:53 80 08/20/24 22:37 36.7 C 80 32 H 154/74 H 97 Nasal Cannula O2 Flow Rate 08/21/24 09:42 3 08/21/24 07:33 3 08/21/24 07:27 08/21/24 07:11 3 08/21/24 03:00 3.0 08/20/24 23:53 08/20/24 22:37 3.0 Laboratory Results 08/21/24 06:50 08/21/24 06:50 Ca 12.4 Diagnostic Findings cxr today (image personally reviewed): elevated R hemidiaphragm; mild perihilar vasc congestion; ?early atelectasis R base; overall not changed
--- NOTE | 2024-08-21 12:01 | Neurology Progress Note ---
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 After connecting through interactive tele-video, patient was identified by name and date of and/or wristband check.RN at bedside. Patient admitted neurology previously consulted due to encephalopathy in setting of infection. 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 Abhinav Medina. Agree with obtaining LP and continue to provide antimicrobial including antiviral BRICK CARRIER coverage in mean time. I have been in communication with primary/hospitalist team and I have seen patient via televideo. RN at bedside helpful as unfortunately patient is mainly unresponsive. Does not respond to voice. He will not awaken but will respond to painful stimuli. No evidence of gaze preference nystagmus roving eye movements or hippus. He has been febrile overnight 101.9F. He is tachypneic. Physical Exam Neurological Examination: Mental Status: Patient is overtly tachypneic Unable to awaken. Responds to painful stim CN testing: I: Deferred II:Deferred III/IV/: No evidence of gaze preference, hippus, nystagmus or roving eye movements V: Facial sensation unable to be accurately assess VII: Facial movements are difficult to reliably assess VIII: Hearing is unable to be accurately assess IX/X: Palate is unable to be accurately visualized XI: Shoulder shrug deferred XII: Tongue without evidence of biting Motor exam: Limited motor exam due to clinical condition Sensory: Responds to painful stim Coordination: Deferred Reflexes: Deferred Gait: Deferred Results & Data Vital Signs (Past 12 Hours) Vital Signs Temp Pulse Pulse Resp BP Pulse Ox O2 Del Method 08/21/24 10:21 36.7 C 86 17 163/93 H 94 Nasal Cannula 08/21/24 09:42 83 26 H 93 Nasal Cannula 08/21/24 07:33 36.7 C 82 20 172/80 H 94 Nasal Cannula 08/21/24 07:27 81 08/21/24 07:11 86 26 H 90 Nasal Cannula 08/21/24 03:00 36.4 C L 81 32 H 164/88 H 96 Nasal Cannula O2 Flow Rate 08/21/24 10:21 3 08/21/24 09:42 3 08/21/24 07:33 3 08/21/24 07:27 08/21/24 07:11 3 08/21/24 03:00 3.0 Laboratory Results Abnormal lab results 08/21/24 Range/Units 06:50 RBC 3.24 L (4.70-6.10) M/uL Hgb 9.5 L (14.0-18.0) g/dl Hct 30.6 L (42.0-52.0) % MCHC 31.0 L (32.0-36.0) g/dL RDW Std Deviation 57.1 H (36.4-46.3) fL RDW Coeff of Eladio 17.5 H (11.5-14.5) % PT 16.6 H (9.0-12.0) Seconds INR 1.6 H (0.9-1.1) Sodium 149 H (136-145) mmol/L Chloride 121 H (98-107) mmol/L BUN 33 H (6-23) mg/dl Creatinine 3.87 H D (0.6-1.4) mg/dl BUN/Creatinine Ratio 8.5 L (10-20) Calcium 12.4 H* (8.6-10.3) mg/dl Total Bilirubin 2.8 H (0.2-1.0) mg/dl Direct Bilirubin 1.8 H (0-0.2) mg/dl AST 169 H (13-39) U/L ALT 76 H (7-52) U/L Alkaline Phosphatase 258 H (34-104) U/L Albumin 2.0 L (3.4-5.0) gm/dl Diagnostic Findings Chest X-Ray 08/20/24 21:08 Exam(s): XR CXR 1 VIEW EXAM: XR Chest, 1 View CLINICAL HISTORY: Reason for exam: sob. TECHNIQUE: Frontal view of the chest. COMPARISON: 08/20/2024 FINDINGS: Lungs: Volume loss in the right lung. No interstitial edema. Left lung is clear. Pleural space: No pleural effusion. No pneumothorax. Heart: Unremarkable. No cardiomegaly. Tubes, lines and devices: Esophagogastric tube terminates below the diaphragm. Right upper extremity PICC terminates within the right atrium. Upper abdomen: Elevated right hemidiaphragm. IMPRESSION: No significant interval change. Electronically signed by: Ken Goldstein MD 08/20/24 22:05 PM Chest X-Ray 08/21/24 07:39 EXAM: XR chest 1V portable CLINICAL HISTORY: check PICC line placement. TECHNIQUE: An X-ray image of the chest is obtained in AP projection. COMPARISON: Prior study dated 08/20/2024 FINDINGS: NG tube noted in situ. The tip is seen below the hemidiaphragm. Unchanged. Right PICC is noted. The tip is seen in the cavoatrial junction. Pulmonary Parenchyma: Small right basal linear opacities. This could be due to atelectasis. Elevation of right hemidiaphragm. Obscured both costophrenic angles Heart and Mediastinum: Increased cardiothoracic ratio. This could be projectional. Perihilar vascular congestion. No mediastinal widening or masses. No hilar or mediastinal lymphadenopathy. Bony Thorax: Bony thorax appears intact without fractures or deformities. Soft Tissues: Soft tissues overlying the chest wall are unremarkable. IMPRESSION: 1. NG tube noted in place. The tip is seen below the hemidiaphragm. Unchanged. 2. Right PICC is noted with tip is seen in the cavoatrial junction. (unchanged) 3. Small right basal linear opacities. This could be due to atelectasis. 4. Elevation of right hemidiaphragm (unchanged) 5. Perihilar vascular congestion. 6. No interval changes. Electronically signed by Rajani Jenkins 08-21-2024 08:59 AM Medications Administered Home Medications Medication Instructions Recorded Confirmed Last Taken Lactobacillus acidophilus 10 10,000 mmu cells PO DAILY 08/14/24 08/14/24 Unknown billion cell capsule (Probiotic) aspirin 81 mg tablet,delayed 81 mg PO DAILY 08/14/24 08/14/24 Unknown release atenolol 100 mg tablet 100 mg PO DAILY 08/14/24 08/14/24 Unknown atorvastatin 20 mg tablet 20 mg PO DAILY 08/14/24 08/14/24 Unknown bisacodyl 10 mg rectal suppository 10 mg MD DAILY PRN Constipation 08/14/24 08/14/24 Unknown (Dulcolax (bisacodyl)) ceftriaxone 1 gram intravenous 1 g IV DAILY 08/14/24 08/14/24 Unknown solution cyanocobalamin (vitamin B-12) 500 500 mcg PO DAILY 08/14/24 08/14/24 Unknown mcg tablet empagliflozin 25 mg tablet 25 mg PO DAILY 08/14/24 08/14/24 Unknown gabapentin 300 mg capsule 600 mg PO HS 08/14/24 08/14/24 Unknown hydroxyzine HCl 10 mg tablet 10 mg PO HS PRN Anxiety 08/14/24 08/14/24 Unknown lamotrigine 100 mg tablet 100 mg PO BID 08/14/24 08/14/24 Unknown (Lamictal) lisinopril 20 mg tablet 20 mg PO DAILY 08/14/24 08/14/24 Unknown metformin 500 mg tablet 500 mg PO BID 08/14/24 08/14/24 Unknown multivitamin with minerals 1 tab PO DAILY 08/14/24 08/14/24 Unknown ondansetron 4 mg disintegrating 4 mg PO Q8H PRN Nausea And Vomiting 08/14/24 08/14/24 Unknown tablet oxycodone 5 mg tablet 5 mg PO Q6H PRN Severe Pain (Scale 08/14/24 08/14/24 Unknown Score 7-10) vancomycin 1,000 mg intravenous 1 g IV UD 08/14/24 08/14/24 Unknown injection Active Medications Generic Name Dose Route Start Last Admin Trade Name Freq PRN Reason Stop Dose Admin Aspirin 81 mg 08/19/24 09:00 08/21/24 07:57 Aspirin 81 Mg Chew NG 09/18/24 08:59 81 mg DAILY ANDREI Administration Atenolol 100 mg 08/19/24 09:00 08/21/24 08:52 Atenolol 50 Mg Tablet NG 09/14/24 08:59 100 mg DAILY ANDREI Administration Calamine/Phenol 1 appln 08/18/24 15:15 08/21/24 10:19 Menthol-Zinc Oxide 360 Appln/120 Gm Tube EXT 09/17/24 15:14 1 appln DAILY ANDREI Administration Calcitonin [place] 400 units 08/20/24 15:30 08/21/24 03:39 Calcitonin [place] 400 Units/2 Ml IM 09/19/24 15:29 400 units Q12H ANDREI Administration Cyanocobalamin 500 mcg 08/19/24 09:00 08/21/24 08:52 Cyanocobalamin (B-12) 500 Mcg Tablet NG 09/14/24 08:59 500 mcg DAILY ANDREI Administration Dextrose 25 - 50 ml 08/14/24 23:10 08/16/24 19:34 Dextrose 50% 50 Ml Syringe IV 09/13/24 23:09 25 ml UD PRN Administration Hypoglycemia Protocol Protocol Enteral Nutritional Formula 1,000 ml 08/18/24 13:45 08/18/24 14:00 Novasource Renal 2.0 Yovani 1000ml Bag NG 09/17/24 13:44 1,000 ml .See Protocol ANDREI Administration Protocol Ferrous Sulfate 325 mg 08/19/24 09:00 08/21/24 07:52 Ferrous Sulfate 325 Mg/7.4 Ml Udp NG 09/18/24 08:59 325 mg DAILY ANDREI Administration Heparin Sodium (Beef Lung) 5 ml 08/15/24 03:12 08/18/24 10:08 Heparin 10 Unit/Ml 5 Ml Flush FLUSH 09/14/24 03:11 5 ml PRN PRN Administration Flush Heparin Sodium (Porcine) 5,000 units 08/15/24 00:00 08/19/24 16:40 Heparin Sod 5,000 Unit/0.5 Ml Vial SQ 09/14/24 00:00 5,000 units Q8H ANDREI Administration Valproic Acid 500 mg/ Dextrose 55 mls @ 55 mls/hr 08/18/24 21:00 08/20/24 09:54 IV 09/17/24 20:59 Infused BID ANDREI Infusion Thiamine HCl 100 mg/ Syringe 10 mls @ 2 mls/min 08/18/24 15:45 08/21/24 07:47 IV 09/17/24 15:44 2 mls/min QAM ANDREI Administration Piperacillin Sod/Tazobactam Sod 4.5 gm in 100 mls @ 25 mls/hr 08/20/24 08:00 08/21/24 07:43 Zosyn IV 08/27/24 07:59 25 mls/hr Q12H ANDREI Administration Protocol Insulin Aspart 0 units 08/18/24 18:30 08/21/24 07:49 Insulin Aspart Per Unit Charge SC 09/17/24 17:59 Not Given Q4 ANDREI Labetalol HCl 10 mg 08/17/24 13:16 08/19/24 03:10 Labetalol Hcl Iv 5 Mg/Ml 20ml IV 09/16/24 13:15 10 mg Q6H PRN Administration Hypertension SBP>180orDBP>100 Lactobacillus Acidophilus 1,250 mg 08/15/24 09:00 08/21/24 07:53 Advanced Probiotic 625 Mg Capsule PO 09/14/24 08:59 1,250 mg DAILY ANDREI Administration Lamotrigine 100 mg 08/15/24 09:00 08/21/24 08:53 Lamotrigine 100 Mg Tab PO 09/14/24 08:59 100 mg BID ANDREI Administration Protocol Multivitamins/Minerals 15 ml 08/19/24 09:00 08/20/24 08:12 Multi Vit W/Minerals Liquid 15 Ml Udc NG 09/18/24 08:59 15 ml QAM ANDREI Administration Sterile Water 100 ml 08/18/24 16:30 08/21/24 11:29 Tube Feeding Water Flush NG 09/17/24 16:29 100 ml Q6H ANDREI Administration
--- NOTE | 2024-08-21 12:18 | Gastroenterology Progress Note ---
Date of Service August 21, 2024 Assessment & Plan (1) Transaminitis: Plan: - continue to trend LFTs, though these are trending downwards now. - will discuss further with MD, further recommendations to follow. Admission and Anticipated Discharge Date Admission Date: August 14, 2024 Supervising Physician Co-Signing Physician Notes Liver enzymes down today. Seem to peak yesterday. Hopefully trend will continue. Believe enzymes are related to medications and systemic infection on the background of severe hepato steatosis Subjective Patient offers no history. LFTs have trended down slightly. discussed with nursing, no other GI concerns currently. 08/21/24 T bili 2.8, d bili 1.8, AST 169, ALT 76, ALK 258, INR 1.6. Review of Systems Review of Systems: Unobtainable due to cognitive status Physical Exam Respiratory: normal respiratory effort Cardiovascular: regular rate / rhythm Gastrointestinal (Abdomen): soft, normal bowel sounds. Results & Data Results & Data Vital Signs (Past 12 Hours) Vital Signs Temp Pulse Pulse Resp BP Pulse Ox O2 Del Method 08/21/24 10:21 98.1 F 86 17 163/93 H 94 Nasal Cannula 08/21/24 09:42 83 26 H 93 Nasal Cannula 08/21/24 07:33 98.1 F 82 20 172/80 H 94 Nasal Cannula 08/21/24 07:27 81 08/21/24 07:11 86 26 H 90 Nasal Cannula 08/21/24 03:00 97.5 F L 81 32 H 164/88 H 96 Nasal Cannula O2 Flow Rate 08/21/24 10:21 3 08/21/24 09:42 3 08/21/24 07:33 3 08/21/24 07:27 08/21/24 07:11 3 08/21/24 03:00 3.0 Coding Level of Care Code 24088 SUB INP/OBS CARE 07/21MIN Diagnoses Transaminitis R74.01
--- NOTE | 2024-08-21 12:58 | Communication Note ---
Date of Service: August 21, 2024 ID asked to reevaluate this case due to continued encephalopathy. Differential at this time includes a combination of toxic/metabolic encephalopathy in setting of supratherapeutic Vancomycin, cefepime usage, severe JUANA and current hypercalcemia. Further concern for infectious etiology due presence of fever on 08/19 and 08/20. Thus far infectious workup has been negative to date including Bclx, CT head, serial CXR. Uclx with edy glabrata does not represent an active infection. Will recommend the following: -Discontinue daptomycin for the time being -Discontinue Zosyn -Start Meropenem [employer]ER dosing based on renal function -Advise against addition of acyclovir at this time considering the high probability of continued kidney injury -Obtain LP and obtain the following -Meningitis/Encephalitis panel -Bacterial/fungal culture -Stand alone CSF HSV/VZV PCR -Cell count, protein, glucose -Based on LP findings will adjust antimicrobials as necessary -ID will continue to follow with you Case discussed with ID Attending Dr. Terrence Figueroa MD Infectious Disease PGY-5 [facility]
[2024-08-21 13:04] LABS: INR 1.5 (0.9-1.1); Prothrombin Time 15.6 Seconds (9.0-12.0)
[2024-08-21] MEDS: PHYTONADIONE 2.5 MG in DEXTROSE 5% 50 ML IV ONE (13:16)
[2024-08-21] MEDS ORDERED: NOVASOURCE RENAL 2.0 CAL 1000ML BAG NG SCH (13:45)
[2024-08-21] MEDS: DEXTROSE 5% IV SCH (14:07)
[2024-08-21] MEDS: ACYCLOVIR SOD IV SCH (14:07)
[2024-08-21] MEDS: MEROPENEM 1,000 MG in SYRINGE 0 ML IV SCH (14:15)
[2024-08-21 14:23] LABS: Hepatitis A Antibody IgM NON-REACTIVE (NON-REACTIVE); Hepatitis B Core Antibody IgM NON-REACTIVE (NON-REACTIVE)
--- NOTE | 2024-08-21 15:01 | Hospitalist Progress Note ---
Date of Service August 21, 2024 Assessment & Plan (1) Sepsis: Plan: 63-year-old male with past medical history significant for type 2 diabetes, diabetic ulcer of right midfoot, dyslipidemia, hypophosphatemia, hypertension, history of C. difficile colitis, oral thrush, cellulitis of right leg, abscess of right foot, absent seizures, history of lung cancer, was sent in by [facility] rehab because of confusion and fevers. Patient was in [facility] from 08/02/2024 to 08/11/2024. He was admitted to the [facility] for right foot swelling and rednesss and fevers. And right foot x-ray showed healed fracture through the midshaft of second metatarsal bone with calcified bridging callus. Pes planus. He was admitted for right foot infection. MRI of the foot was negative for osteomyelitis and showed cellulitis and possible abscess. Status post I&D by podiatry at bedside on August 03 with a deep purulence obtained and sent for culture. Status post I&D with podiatry for sepsis on August 06 and probe to bone very favorable and no clear abscess as suggested by CT scan. During hospital stay he was also completed Tamiflu for influenza. ID suggested Ancef until September 17 and to treat as osteomyelitis for MSSA on wound cultures with 6 weeks of IV antibiotics. On August 07 patient had rash thought to be from Ancef. Rash was worsening after second dose of Ancef and patient was having fevers that thought to be lined up from Ancef doses and was thought possible drug fever. And ID recommended IV Vanco via PICC line. Vancomycin dosing goal AUC 400-600 Mg/liter/hour. And patient was discharged to [facility] on 08/11/2024. At [facility] patient was still having fevers and shortness of breath and erythema around his wound ,does not appear to be receding thought to be spreading. [facility] made ID aware. As per the med rec from the [facility] seems patient had Rocephin. And was sent to our ER today because of fever and altered mental status. Patient can tell his name. Knows that he is in the hospital. Could tell his date of . But could not tell current dates. Denies any cough. Denies headache. Denies chest pain. Denies shortness of breath. Denies belly pain. Status post Guillermina in the ER. Patient seems poor historian at this time. No sacral ulcer seen. Sepsis Bilateral lower extremity cellulitis Right foot diabetic ulcer Recently on [facility] was placed on IV Vanco for 6 weeks until September 17 to treat his osteomyelitis though MRI was negative and abscess was I&D by podiatry at [facility] --Right Foot X ray: No definite radiographic evidence of osteomyelitis as evelia cribed. --Venous Doppler:No evidence of deep venous thrombus within the bilateral lower extremities. --Arterial Doppler:Negative right lower extremity arterial evaluation. No oc clusion or significant hemodynamic stenosis with multiphasic waveforms throughout. --CT ABD:No bowel obstruction. Severe hepatic steatosis. Hepatomegaly. Anasarca. Small amount of ascites within the pelvis. -- Blood cultures negative to date -- Urine culture: Heather glabrata IV cefepime discontinued as recommended by infectious disease/neurology Received IV fluids, monitor volume status closely Avoid IV Vanco as trough level high, JUANA Appreciate infectious disease input: Once Vanco trough drops < 15 will start the patient on IV daptomycin. (Will renally dose IV daptomycin through 09/17/24) Appreciate Podiatry Input : Given ongoing treatment, will defer MRI foot for now Continue local wound care Aspiration precautions Vanco trough 14.2 on 08/20/24 Continue tube feeds Discussed with ID today: Recommends to change Dapto, Zosyn to meropenem today. Recommends lumbar puncture. Hold antivirals for lumbar puncture per ID Consulted IR for lumbar puncture tomorrow Acute metabolic encephalopathy Likely due to above infection/meds DD: Meningitis, encephalitis Suspected urinary tract infection--Less likely --Head CT:No acute findings in the head/brain. --Urine culture: as above --MRI Brain:No evidence of acute or subacute infarct. Reorient frequently to minimize delirium Repeat CT head showed no acute process -Normal ammonia level -Drug screen negative -VBG showed no hypercarbia -TSH elevated, normal free T4 --Thiamine B1 level pending -EEG: This is an abnormal routine EEG in a patient w altered mental state due to 1. Generalized background slowing suggestive of non specific encephalopathy, 2. Triphasic waves which are non specific but commonly seen in metabolic encephalopathies. --Lamictal levels 6.6 --Elevated INR--received vitamin K Could not get lumbar puncture initially due to elevated INR/patient agitated INR 1.5 today Valproic acid held due to rising LFTs. Neurology aware LFTs better today Monitor ammonia levels, received a dose of lactulose on 08/20/2024 Appreciate neurology input. Acute kidney injury likely ATN/toxic secondary to infection, vancomycin/AIN Cr: 4.4>4.1>4.0> 3.8 Creatinine was 1.6 on 08/12/2024 --CT ABD:Mild nonspecific perinephric stranding. No hydronephrosis. Simple 2 cm left renal cyst. No follow-up of this simple cyst is necessary. Avoid nephrotoxic agents as able Monitor renal function, urinary output Bladder scan as needed Metformin, Jardiance, lisinopril on hold Avoid NSAIDs Monitor for volume status Received IV fluid Appreciate nephrology input Plan to increase NG tube water flushes as able Sniffle count pending Hypercalcemia Hypernatremia Likely due to dehydration Low PTH, vitamin D levels PTH related peptide pending Avoid calcium supplements Started on IV fluids as recommended by nephrology Monitor electrolytes closely Also on free water flushes through NG tube Started on calcitonin, Zometa Monitor calcium levels Calcium 12.4 today [id number] today Transaminitis Likely due to sepsis, fatty liver --CT ABD:Hepatic steatosis. Hepatomegaly. Minimal free fluid around the liver and in the pelvis. --Hepatitis panel pending --Gall Bladder USD: Trace ascites. Normal sonographic appearance of the gallbladder. Large fatty liver. --Elevated INR Monitor LFTs Hold Lipitor for now GI following Valproate held due to worsening LFTs LFTs slightly better today Hyponatremia--Resolved Currently hypernatremic as above Anemia Iron deficiency anemia Anemia of chronic disease No obvious signs of bleeding Vit B12, folate levels reviewed Monitor CBC Started on iron supplements Hypertension Hold lisinopril Continue atenolol with holding parameters Monitor DM II Hold home medications Adjust insulin per protocol to minimize hypoglycemic episodes Monitor blood glucose levels Hyperlipidemia Hold statin due to elevated LFTs History of seizures On Lamictal Monitor Remote history of lung cancer Treated with chemo as per records DVT Px: Heparin SQ Code Status Full code Disposition To be determined Admission and Anticipated Discharge Date Admission Date: August 14, 2024 Subjective Patient is seen and examined at bedside Unable to obtain any history, obtained Discussed with nephrology, infectious disease, neurology today Updated patient's family over the phone Plan to restart tube feeds today and increase water flushes Change IV daptomycin, Zosyn to meropenem per ID Review of Systems Review of Systems: All systems reviewed & are unremarkable except as noted in Subjective Physical Exam Physical Exam: Physical Exam: Vitals signs as noted above General Appearance:Moderately built and nourished,no distress,Obtunded Head: normocephalic, Atraumatic Eyes: normal inspection, EOMI Neck: supple, Trachea midline Respiratory/Chest: Normal breath sounds, CTA, No accessory muscle use Cardiovascular: S1, S2, No murmur Abdomen/GI:Soft, Non tender, Bowel sounds present, protuberant Extremities/Musculoskeletal:normal inspection, 1-2+ B/L LE edema, erythema, R great toe s/p amputation, R foot ulcer Neurologic/Psych:Obtunded, unable to perform complete neurological exam Skin: normal color, warm Results & Data Results & Data Vital Signs (Past 12 Hours) Vital Signs Temp Pulse Pulse Resp BP Pulse Ox O2 Del Method 08/21/24 14:52 100 H 32 H 93 Nasal Cannula 08/21/24 14:11 88 08/21/24 10:21 36.7 C 86 17 163/93 H 94 Nasal Cannula 08/21/24 09:42 83 26 H 93 Nasal Cannula 08/21/24 07:53 Nasal Cannula 08/21/24 07:33 36.7 C 82 20 172/80 H 94 Nasal Cannula 08/21/24 07:27 81 08/21/24 07:11 86 26 H 90 Nasal Cannula 08/21/24 03:00 36.4 C L 81 32 H 164/88 H 96 Nasal Cannula O2 Flow Rate 08/21/24 14:52 3 08/21/24 14:11 08/21/24 10:21 3 08/21/24 09:42 3 08/21/24 07:53 4 08/21/24 07:33 3 08/21/24 07:27 08/21/24 07:11 3 08/21/24 03:00 3.0 Laboratory Results Short CBC 08/21/24 Range/Units 06:50 WBC 9.74 (4.8-10.8) K/ul Hgb 9.5 L (14.0-18.0) g/dl Hct 30.6 L (42.0-52.0) % Plt Count 333 (130-400) K/uL BMP 08/21/24 06:50 Sodium 149 H Potassium 3.6 Chloride 121 H Carbon Dioxide 25 BUN 33 H Creatinine 3.87 H D Glucose 80 Calcium 12.4 H* Cardiac Enzymes 08/21/24 Range/Units 06:50 Total Creatine Kinase 30 (30-223) U/L Liver Function 08/21/24 Range/Units 06:50 Total Bilirubin 2.8 H (0.2-1.0) mg/dl Direct Bilirubin 1.8 H (0-0.2) mg/dl AST 169 H (13-39) U/L ALT 76 H (7-52) U/L Alkaline Phosphatase 258 H (34-104) U/L Albumin 2.0 L (3.4-5.0) gm/dl
[2024-08-21 15:38] LABS: Protein Creatinine Ratio Urine 1.8 (0-0.2); Total Protein Urine Random 95.7 mg/dl (0-11.9)
[2024-08-21] MEDS: ACETAMINOPHEN 1,000 MG/100 ML VIAL IV PRN (16:02)
--- NOTE | 2024-08-21 18:03 | Emergency Department Note ---
ED Visit Note Cardiac arrest I was called to the patient's room for cardiac arrest. He was noted by nursing staff to go into a bradycardic rhythm. He then started to act erratically and had decreased mental status. A CODE BLUE was called. Upon my arrival to the room the patient was receiving ACLS medications with CPR. He was being bagged by respiratory. The patient was not awake or alert. He could not answer questions. He did have a carotid pulse to my palpation. The decision was made to proceed with endotracheal ovation. Endotracheal Intubation Indication cardiac arrest. The patient was on 100% oxygen via NRB prior to the procedure. Suction, airway equipment, RSI drugs, respiratory equipment, and appropriate personnel were prepared prior to the initiation of the procedure. A time out was taken. The airway was easily visualized utilizing a Roldan blade. A 7.5 size ETT tube was placed atraumatically to 22 cm using standard technique. The cuff inflated without signs of malfunction. There were bilateral breath sounds, positive colormetric change, no gastric sounds, a good capnography waveform, and post procedure pulse oximetry was 90%. There were no complications, chest x-ray is pending. The patient's care was handed over to the ICU attending as well as the patient's primary [facility] service. .
--- NOTE | 2024-08-21 18:04 | Critical Care Consultation ---
Date of Consultation August 21, 2024 Assessment & Plan (1) Hypercalcemia: (2) Transaminitis: (3) Encephalopathy: (4) Cellulitis of left lower extremity: (5) Diabetic foot ulcer: (6) JUANA (acute kidney injury): (7) Cardiac arrest: (8) Shock circulatory: Plan Reason Critically Ill: 63-year-old male admitted to the hospital for lower extremity cellulitis as well as osteomyelitis for right foot ulcer Past medical history: Seizures, dyslipidemia, diabetes, hypertension, history of lung cancer Neuro - [facility]: Unable to assess -- Encephalopathy Multifactorial Hypercalcemia with calcium of 12.4, corrected calcium around 14 Ammonia 64 Elevated TSH with normal free T4 CT head negative 08/19/2024 Brain MRI 08/16/2024 negative Cardiac - -- Cardiac arrest with shock Patient had bradycardia and then asystole on the telemetry strip Continue with vasopressor support to keep MAP greater than 65 --Anasarca with severe protein-calorie malnutrition Albumin 2 Respiratory - -- VDRF For airway protection from cardiac arrest Continue with ventilatory support Keep RASS -1 Daily sedation holidays and SBT's -- Chronic elevation of the right hemidiaphragm GI - --Transaminitis Etiology is likely coming from medication/antibiotic Used to be on vancomycin as an outpatient, also got cefepime while he was in the hospital as well as Depakote Trending down Continue to monitor Hepatitis panel -12 2324 RENAL/LYTES - --Hyponatremia with hyperchloremia Free water deficit 4.2 L -- JUANA on CKD Avoid nephrotoxic medication Monitor BUNs/creatinine --Hypercalcemia Appreciated after coming to the hospital PTH less than 7, goes along with secondary hypercalcemia ENDO - -- Diabetes type 2 ICU hypoglycemia protocol HEME - -- Normocytic anemia Monitor H&H ID - -- Osteomyelitis On antibiotics, infectious disease on board Procalcitonin> 100 on presentation, downtrending --Prophylaxis VTE: Heparin GI: Pantoprazole Lines: Right radial, right arm PICC Diet: N.p.o. Plan: Strict in and outs Given the hypercalcemia I will give the patient at least 2 L of IV fluid bolus followed by D5 water. Will also start the patient on bicarb drip Overall prognosis is guarded given the patient is already coded twice. I did discuss it with patient's son as well as [id number] in the presence of Dr. Canchola. Decision was made to not to escalate the care continue with vasopressor support but no CPR in future if need be I have personally spent 68 minutes of critical care time in the direct management of this patient. This is a life/limb threatening event. This includes time spent evaluating patient, direct bedside care, chart review, placing orders, interpretation of diagnostic studies, discussion with consultants, patient, and family members, as well as other required patient management activities. This time is exclusive of all separately billable procedures, and teaching time and separate from and in addition to any other critical care service time. History of Present Illness Attending Physician: Speedy Canchola MD History of Present Illness 63-year-old male admitted to the hospital for lower extremity cellulitis as well as osteomyelitis for right foot ulcer Past medical history: Seizures, dyslipidemia, diabetes, hypertension, history of lung cancer Patient had CODE BLUE on the floor, intubated by ER. Patient with 3 A of epi on the floor When the patient was wheeled to the ICU, his blood pressure was again trending down he was given 1 round of epi. He was started on Levophed drip. I was able to get an arterial line in the right radial. What I was trying to put a central line in the patient again went hypotensive and bradycardic. CODE BLUE was called and 1 round of epi along with 4 A of bicarb were pushed. Total amps of bicarb given for 5 MAYUR was achieved. Patient was then started on epi drip as well History obtained from previous chart Allergies Allergy/AdvReac Type Severity Reaction Status Date / Time cefazolin Allergy Intermediate Rash Verified 08/14/24 23:14 Home Medications Medication Instructions Recorded Confirmed Type Lactobacillus acidophilus 10 10,000 mmu cells PO DAILY 08/14/24 08/14/24 History billion cell capsule (Probiotic) aspirin 81 mg tablet,delayed 81 mg PO DAILY 08/14/24 08/14/24 History release atenolol 100 mg tablet 100 mg PO DAILY 08/14/24 08/14/24 History atorvastatin 20 mg tablet 20 mg PO DAILY 08/14/24 08/14/24 History bisacodyl 10 mg rectal suppository 10 mg ME DAILY PRN Constipation 08/14/24 08/14/24 History (Dulcolax (bisacodyl)) ceftriaxone 1 gram intravenous 1 g IV DAILY 08/14/24 08/14/24 History solution cyanocobalamin (vitamin B-12) 500 500 mcg PO DAILY 08/14/24 08/14/24 History mcg tablet empagliflozin 25 mg tablet 25 mg PO DAILY 08/14/24 08/14/24 History gabapentin 300 mg capsule 600 mg PO HS 08/14/24 08/14/24 History hydroxyzine HCl 10 mg tablet 10 mg PO HS PRN Anxiety 08/14/24 08/14/24 History lamotrigine 100 mg tablet 100 mg PO BID 08/14/24 08/14/24 History (Lamictal) lisinopril 20 mg tablet 20 mg PO DAILY 08/14/24 08/14/24 History metformin 500 mg tablet 500 mg PO BID 08/14/24 08/14/24 History multivitamin with minerals 1 tab PO DAILY 08/14/24 08/14/24 History ondansetron 4 mg disintegrating 4 mg PO Q8H PRN Nausea And Vomiting 08/14/24 08/14/24 History tablet oxycodone 5 mg tablet 5 mg PO Q6H PRN Severe Pain (Scale 08/14/24 08/14/24 History Score 7-10) vancomycin 1,000 mg intravenous 1 g IV UD 08/14/24 08/14/24 History injection Patient History Social History Smoking Status: Never smoker Hx Alcohol Use: No Hx Substance Use: No Preferred Language: [place] Communication Ability: Impaired Inspector Open Die Required: No Beliefs That Will Affect Care: None Current Living Situation: Personal Care Facility Current Living Situation Comment: Lives at [facility] currently Other Information That Helps Us Care for You: No Feels Safe at Home: Yes Safety Concerns: Feels Safe At This Time Assistive Devices: None Review of Systems 2 Review of Systems: Unobtainable due to endotracheal tube Physical Exam 2 Physical Exam: Constitutional: Respiratory distress HEENT: PERRLA, sluggish response Respiratory system: Decreased air entry bilaterally, no wheeze, no rhonchi, positive crackles bilateral lower lobe CVS: S1-S2 positive, no murmurs or gallops Abdomen: Soft, nontender, nondistended, positive bowel sounds x4 Extremities: +2 pulses bilaterally radialis/ dorsalis pedis, no cyanosis, +2 pitting edema bilateral lower extremity, right first and second toe amputation Neuro: Breathing over the vent, not moving any extremities to command Psych: Unable to assess G/U: Positive Sarmiento Results & Data Results & Data Vital Signs (Past 12 Hours) Vital Signs Temp Pulse Pulse Resp BP Pulse Ox O2 Del Method 08/21/24 14:52 100 H 32 H 93 Nasal Cannula 08/21/24 14:11 88 08/21/24 10:21 36.7 C 86 17 163/93 H 94 Nasal Cannula 08/21/24 09:42 83 26 H 93 Nasal Cannula 08/21/24 07:53 Nasal Cannula 08/21/24 07:33 36.7 C 82 20 172/80 H 94 Nasal Cannula 08/21/24 07:27 81 08/21/24 07:11 86 26 H 90 Nasal Cannula O2 Flow Rate 08/21/24 14:52 3 08/21/24 14:11 08/21/24 10:21 3 08/21/24 09:42 3 08/21/24 07:53 4 08/21/24 07:33 3 08/21/24 07:27 08/21/24 07:11 3 Laboratory Results 08/21/24 06:50 08/21/24 06:50 Coding Level of Care Code 55032 CRITICAL CARE 1ST 30-74M Diagnoses Hypercalcemia E83.52 Transaminitis R74.01 Encephalopathy G93.40 Cellulitis of left lower extremity L03.116 Diabetic foot ulcer E11.621; L97.412 Diabetes mellitus type: type 2 Diabetic foot ulcer location: midfoot Laterality: right Non-pressure ulcer stage: with fat layer exposed JUANA (acute kidney injury) N17.9 Cardiac arrest I46.9 Shock circulatory R57.9 (5) Diabetic foot ulcer Diabetes mellitus type: type 2 Diabetic foot ulcer location: midfoot L aterality: right Non-pressure ulcer stage: with fat layer exposed Qualified Code(s): E11.621 - Type 2 diabetes mellitus with foot ulcer; L97.412 - Non- pressure chronic ulcer of right heel and midfoot with fat layer exposed
--- NOTE | 2024-08-21 18:22 | XRay Report ---
INDICATION: Intubation TECHNIQUE: Frontal radiograph of the chest. COMPARISON: Radiograph from earlier the same day FINDINGS/IMPRESSION: Right pleural effusion with atelectasis/airspace disease, slightly worsened from prior. No pneumothorax. Left lung is clear. No acute fracture. Endotracheal tube tip approximately 3.3 cm above the mauricio. Enteric tube extends below the diaphragm. Right-sided PICC line catheter tip in the superior vena cava. Electronically signed by Elvin Urias 08-21-2024 6:21 PM
--- NOTE | 2024-08-21 18:23 | Communication Note ---
Date of Service: August 21, 2024 Patient noted to be bradycardic and pale while getting oral care today. Patient was noted to have heart rate in 50-40s and became tachypneic. Prior to the episode, tube feeds were held for oral care per RN. Initially code purple was called and later changed to CODE BLUE and ACLS protocol was performed. Patient required CPR and needed intubation for respiratory support. IV epinephrine was administered per protocol. Chest x-ray, ABG, blood work ordered post intubation. Patient was will be transferred to ICU for further management. Critical care consulted. Updated patient's family over the phone.
[2024-08-21] MEDS ORDERED: STAT IV/IM STA (18:54)
[2024-08-21] MEDS ORDERED: STAT IV Infusion **Titration per Protocol STA ×3 (18:55→19:50)
--- NOTE | 2024-08-21 19:11 | Procedure Note ---
Procedure Note Date of Service August 21, 2024 ARTERIAL LINE PROCEDURE NOTE: Procedure: Arterial Line Placement Attending: Dr. Jackie Camacho MD Indication: Monitoring on Pressors Anesthesia: None Emergent consent was applied A time-out was completed verifying correct patient, procedure, site, positioning, and implant(s) or special equipment if applicable. Allens test was performed to ensure adequate perfusion. Patients right wrist was prepped and draped in the usual sterile fashion. Ultrasound guidance was used to aid needle placement. A 20g Arrow arterial line was introduced into the right radial artery. Catheter was threaded, and the needle was removed with appropriate pulsatile blood return. Good waveform was observed on the monitor. The patient tolerated the procedure well. Confirmation of placement with ultrasound. Images saved to medical record. Complications: None Blood Loss: Less than 2 cc [facility] Procedure Codes (Charges) Tubes, Drains, and Vasc Access Procedure 1: Tubes, Drains, and Vasc Access: [id number] Arterial Cath/Cannulation Sampling/Monitoring/Transfusion Procedure 2: Tubes, Drains, and Vasc Access: [id number] Ultrasound Guidance For Vascular Coding CPT Codes Tubes, Drains, and Vasc Access - Tubes, Drains, and Vasc Access: [id number] Arterial Cath/Cannulation Sampling/Monitoring/Transfusion ([id number]) Tubes, Drains, and Vasc Access - Tubes, Drains, and Vasc Access: [id number] Ultrasound Guidance For Vascular ([id number]) Additional Codes Date of Service ([facility].[email or web address])
[2024-08-21 19:27] LABS: iSTAT Art Bld Gas pCO2 Correct 35 mmHg (35-46); iSTAT Art Bld Gas pH Corrected 7.333 (7.35-7.45); iSTAT Arterial Blood Gas HCO3 18 meg/L (19-24); iSTAT Arterial Blood Gas pCO2 34 mmHg (35-46); iSTAT Arterial Blood Gas pH 7.34 (7.35-7.45); iSTAT Arterial Blood Gas pO2 84 mmHg (80-95); iSTAT Arterial Blood Gas pO2 C 85; iSTAT Carbon Dioxide 19 mmol/L (24-31); iSTAT FiO2 100 %; iSTAT Hematocrit 28 % (42-52); iSTAT Hemoglobin 9.5 g/dl (14.0-18.0); iSTAT Potassium 3.1 mmol/L (3.3-5.0); iSTAT Sample Type Arterial; iSTAT Site Art Line; iSTAT Sodium 156 mmol/L (135-144); iSTAT SpO2 97
[2024-08-21] MEDS: NOREPINEPHRINE/D5W 4 MG/250 ML IV ONE (19:45)
[2024-08-21] MEDS: SODIUM BICARB 8.4% INJ 50 MEQ/50 ML SYR IV ONE (19:45)
[2024-08-21] MEDS: fentaNYL citrate PF 100 MCG/2 ML VIAL ONE (19:47)
[2024-08-21] MEDS: fentaNYL citrate PF 100 MCG/2 ML VIAL IV ONE (19:47)
[2024-08-21] MEDS: VASOPRESSIN 20 UNITS in SODIUM CHLORIDE 0.9% 100 ML IV SCH (19:49)
[2024-08-21] MEDS: SODIUM BICARBONATE 8.4% 150 MEQ in DEXTROSE 5% 1,000 ML IV SCH (19:49)
[2024-08-21] MEDS: RAPID SEQUENCE INDUCTION BAG ONE (19:50)
[2024-08-21] MEDS: EPINEPHrine/NSS 4 MG/254 ML BAG IV SCH (19:50)
[2024-08-21] MEDS: fentaNYL citrate 2,500 MCG/250 ML BAG IV SCH (19:55)
[2024-08-21] MEDS: NOREPINEPHRINE/D5W 4 MG/250 ML PLCT IV SCH (20:00)
[2024-08-21 20:18] LABS: Mean Corpuscular Hemoglobin 29.3 pg (25.0-34.0); Mean Corpuscular Hgb Conc 29.4 g/dL (32.0-36.0); Mean Corpuscular Volume 99.7 fL (80.0-100.0); Mean Platelet Volume 9.6 fL (9.4-12.4); Nucleated RBC # (auto) 1.24 K/uL (0.00-0.12); Nucleated RBC % (auto) 5.3 %; Platelet Count 341 K/uL (130-400); RDW Coefficient of Variation 18.6 % (11.5-14.5); RDW Standard Deviation 60.6 fL (36.4-46.3); Red Blood Count 3.41 M/uL (4.70-6.10); White Blood Count 23.23 K/ul (4.8-10.8)
[2024-08-21 20:22] LABS: ALC (manual) 11.38 K/uL (1.2-3.4); ANC (manual) 7.43 K/uL (1.4-6.5); Anisocytosis Present; Eosinophils # (manual) 1.63 K/uL (0-0.50); Eosinophils % (manual) 7 %; Large Granular Lymph % (manual) 31 %; Lymphocytes # (manual) 4.18 K/uL (1.2-3.4); Lymphocytes % (manual) 18 %; Metamyelocytes # (manual) 1.16 K/uL (0-0); Metamyelocytes % (manual) 5 %; Monocytes # (manual) 0.93 K/uL (0.11-0.59); Monocytes % (manual) 4 %; Myelocytes % (manual) 3 %; Neutrophils # (manual) 7.43 K/uL (1.40-6.50); Neutrophils % (manual) 32 %; Polychromasia 1+; Toxic Vacuolation 1+
[2024-08-21 20:31] LABS: Albumin Globulin Ratio 0.5 (0.9-2); Albumin Level 2.1 gm/dl (3.4-5.0); BUN Creatinine Ratio 8.7 (10-20); Bilirubin,Total 2.4 mg/dl (0.2-1.0); Calcium 11.8 mg/dl (8.6-10.3); Creatinine Clr Calc Pharmacy 18.3 ml/min; Magnesium 2.1 mg/dl (1.7-2.4); Phosphorus 7.1 mg/dl (2.5-4.9); Total Protein 6.1 gm/dl (6.0-8.3)
[2024-08-21] MEDS: HYDROCORTISONE SOD 100 MG in SYRINGE 0 ML IV SCH (21:54)
[2024-08-21] MEDS: TUBE FEEDING WATER FLUSH GT SCH (21:55)
[2024-08-21 23:48] LABS: iSTAT Art Bld Gas pCO2 Correct 28 mmHg (35-46); iSTAT Art Bld Gas pH Corrected 7.402 (7.35-7.45); iSTAT Arterial Blood Gas HCO3 18 meg/L (19-24); iSTAT Arterial Blood Gas pCO2 28 mmHg (35-46); iSTAT Arterial Blood Gas pO2 83 mmHg (80-95); iSTAT Arterial Blood Gas pO2 C 83; iSTAT Carbon Dioxide 18 mmol/L (24-31); iSTAT FiO2 100 %; iSTAT Hematocrit 29 % (42-52); iSTAT Hemoglobin 9.9 g/dl (14.0-18.0); iSTAT Potassium 3.1 mmol/L (3.3-5.0); iSTAT Sample Type Arterial; iSTAT Site Art Line; iSTAT Sodium 153 mmol/L (135-144); iSTAT SpO2 98
--- NOTE | 2024-08-22 01:36 | CT Scan Report ---
EXAM: CT head/brain wo con CLINICAL HISTORY: Cardiac arrest. Encephalopathy. TECHNIQUE: An axial non-contrast CT scan of the brain was performed from the skull base to the high parietal region. One of the following dose reduction techniques were utilized for this exam: Automated exposure control, adjustment of the mA and/or kV according to patient size, use of iterative reconstruction. COMPARISON: 08/19/2024 FINDINGS: There are tiny ill-defined [id number] areas noted in the subcortical and periventricular white matter bilaterally, suggestive of microvascular ischemic changes. The ventricular system, cortical sulci, and basal cisterns are prominent consistent with senile changes. The visualized brain parenchyma shows normal appearance. Santillan-white matter differentiation is maintained. No midline shifts or deformity. No intracerebral or extra axial hematoma. Normal CT appearance of the posterior fossa structures namely the cerebellar hemispheres, brainstem and cerebellar peduncles. The cerebello-pontine angles are clear. The osseous structures in the skull base are unremarkable. No definite calvarium fractures. The scanned paranasal sinuses are clear. Bilateral mastoid air cells appear unremarkable. Postsurgical atlas vertebra fixation. IMPRESSION: 1. No definite acute abnormality detected on plain CT head. Recommended MRI if clinically warranted 2. Chronic microvascular ischemic changes and senile cortical atrophy 3. No significant interval changes since previous study. Electronically signed by Rajani Jenkins 08-22-2024 01:36 AM
--- NOTE | 2024-08-22 01:47 | CT Scan Report ---
EXAM: CT chest diagnostic wo con CLINICAL HISTORY: Cardiac arrest, hypoxemia TECHNIQUE: Contiguous axial CT images of the chest were acquired without administration of intravenous contrast. Coronal and sagittal reconstructions were obtained. One of the following dose reduction techniques were utilized for this exam: Automated exposure control, adjustment of the mA and/or kV according to patient size, use of iterative reconstruction. COMPARISON: CR 08/21/2024 FINDINGS: Endotracheal tube is approximately 2.5 cm from mauricio. Nasogastric tube is appropriately placed. Lungs: Mild right sided pleural effusion with subpleural consolidation and collapse in right lower lobe. Minimal left sided pleural effusion. Few atelectatic bands in both lungs. Right hemidiaphragm is raised, possible eventration/palsy. Mediastinum: No mediastinal mass or abnormal lymphadenopathy. The heart size is within normal limits. Trachea and Main Bronchi: The trachea and main bronchi are patent without evidence of obstruction or abnormality. Chest Wall: The chest wall is unremarkable with no evidence of soft tissue or bony abnormalities. Bone: Degenerative changes in thoracic spine. Upper Abdomen: Hepatic steatosis noted. IMPRESSION: Endotracheal tube is approximately 2.5 cm from mauricio. Borderline low position. Nasogastric tube is appropriately placed. Mild right sided pleural effusion with subpleural consolidation and collapse in right lower lobe. Possibly related to cardiac arrest. Minimal left sided pleural effusion. Few atelectatic bands in both lungs. Right hemidiaphragm is raised, possible eventration/palsy. Electronically signed by Rajani Jenkins 08-22-2024 01:46 AM
[2024-08-22 05:39] LABS: INR 1.4 (0.9-1.1)
[2024-08-22 06:00] LABS: Hematocrit (blood only) 31.7 % (42.0-52.0); Mean Corpuscular Hemoglobin 29.4 pg (25.0-34.0); Mean Corpuscular Hgb Conc 31.5 g/dL (32.0-36.0); Mean Corpuscular Volume 93.2 fL (80.0-100.0); Nucleated RBC # (auto) 1.94 K/uL (0.00-0.12); Nucleated RBC % (auto) 9.6 %; Platelet Count 429 K/uL (130-400); RDW Coefficient of Variation 18.9 % (11.5-14.5); RDW Standard Deviation 55.1 fL (36.4-46.3); White Blood Count 20.18 K/ul (4.8-10.8)
[2024-08-22 06:03] LABS: BUN Creatinine Ratio 8.7 (10-20); Bilirubin Direct 1.8 mg/dl (0-0.2); Bilirubin,Total 2.9 mg/dl (0.2-1.0); Calcium 9.4 mg/dl (8.6-10.3); Creatinine Clr Calc Pharmacy 18.3 ml/min; Total Protein 6.2 gm/dl (6.0-8.3)
[2024-08-22] MEDS: LACTATED RINGER'S 1,000 ML IV SCH (06:16)
[2024-08-22 06:34] LABS: Basophils # (auto) 0.12 K/uL (0.00-0.20); Basophils % (auto) 0.6 %; Eosinophils # (auto) 0.17 K/uL (0.00-0.50); Eosinophils % (auto) 0.8 %; Immature Granulocytes # (auto) 1.89 K/uL (0.01-0.20); Immature Granulocytes % (auto) 9.4 %; Lymphocytes # (auto) 2.45 K/uL (1.20-3.40); Lymphocytes % (auto) 12.1 %; Monocytes # (auto) 0.78 K/uL (0.11-0.59); Monocytes % (auto) 3.9 %; Neutrophils # (auto) 14.77 K/uL (1.40-6.50); Neutrophils % (auto) 73.2 %; Polychromasia 1+
[2024-08-22 07:58] LABS: iSTAT Art Bld Gas pCO2 Correct 36 mmHg (35-46); iSTAT Art Bld Gas pH Corrected 7.408 (7.35-7.45); iSTAT Arterial Blood Gas HCO3 22 meg/L (19-24); iSTAT Arterial Blood Gas pCO2 34 mmHg (35-46); iSTAT Arterial Blood Gas pH 7.43 (7.35-7.45); iSTAT Arterial Blood Gas pO2 115 mmHg (80-95); iSTAT Arterial Blood Gas pO2 C 124; iSTAT Carbon Dioxide 23 mmol/L (24-31); iSTAT FiO2 70 %; iSTAT Hematocrit 29 % (42-52); iSTAT Hemoglobin 9.9 g/dl (14.0-18.0); iSTAT Potassium 4.4 mmol/L (3.3-5.0); iSTAT Sample Type Arterial; iSTAT Site Art Line; iSTAT Sodium 150 mmol/L (135-144); iSTAT SpO2 100
--- NOTE | 2024-08-22 08:38 | Critical Care Progress Note ---
Date of Service August 22, 2024 Assessment & Plan (1) Hypercalcemia: (2) Transaminitis: (3) Encephalopathy: (4) Cellulitis of left lower extremity: (5) Diabetic foot ulcer: (6) JUANA (acute kidney injury): (7) Cardiac arrest: (8) Shock circulatory: Plan Reason Critically Ill: 63-year-old male admitted to the hospital for lower extremity cellulitis as well as osteomyelitis for right foot ulcer Past medical history: Seizures, dyslipidemia, diabetes, hypertension, history of lung cancer Neuro - [facility]: Unable to assess -- Encephalopathy Multifactorial Hypercalcemia with calcium of 12.4, corrected calcium around 14 Ammonia 64 Elevated TSH with normal free T4 CT head negative 08/19/2024 Brain MRI 08/16/2024 negative Cardiac - 2D echo 08/21/2024: EF greater than 70%, mild concentric LVH, borderline RV enlargement, no significant valvular disease, no pericardial effusion -- Cardiac arrest with shock Patient had bradycardia and then asystole on the telemetry strip Continue with vasopressor support to keep MAP greater than 65 --Anasarca with severe protein-calorie malnutrition Albumin 2 Respiratory - -- VDRF For airway protection from cardiac arrest Continue with ventilatory support Keep RASS -1 Daily sedation holidays and SBT's -- Chronic elevation of the right hemidiaphragm GI - --Transaminitis Etiology is likely coming from medication/antibiotic initially followed by cardiac arrest Used to be on vancomycin as an outpatient, also got cefepime while he was in the hospital as well as Depakote Trending down Continue to monitor Hepatitis panel - negative on 08/19/2024 RENAL/LYTES - -- JUANA on CKD Avoid nephrotoxic medication Monitor BUNs/creatinine --Hypernatremia with hyperchloremia Free water deficit 4.5 L Getting free water flushes through the OGT --Hypercalcemia Appreciated after coming to the hospital PTH less than 7, goes along with secondary hypercalcemia Patient did get calcitonin as well as zalendronic acid Etiology for hypercalcemia is unclear. Patient was eucalcemic when he came in and actually hypocalcemic when he was admitted at [facility] last month. He did not get any fluids to cause hypercalcemia [place]erry MGUS versus multiple myeloma ENDO - -- Diabetes type 2 ICU hypoglycemia protocol HEME - -- Normocytic anemia Monitor H&H ID - -- Osteomyelitis On antibiotics, infectious disease on board Procalcitonin> 100 on presentation, downtrending --Prophylaxis VTE: Heparin GI: Pantoprazole Lines: Right radial, right arm PICC Diet: N.p.o. Plan: In/out: +2.6 L, urine output 155 mL Free water deficit is around 4.5 L Continue with free water flushes through the OGT Repeat BMP later today Corrected calcium is 11. Which is much better compared to yesterday. Calcitonin has been discontinued by nephrology I have personally discussed the case with nephrology as well Patient is not making urine, creatinine is worsening. Possibility of him needing dialysis is there. Family were updated at bedside and all questions and queries were answered in depth Overall prognosis is guarded I did discuss it with patient's son and [id number], in the presence of Dr. Canchola. Decision was made to not to escalate the care continue with vasopressor support but no CPR in future if need be I have personally spent 52 minutes of critical care time in the direct management of this patient. This is a life/limb threatening event. This includes time spent evaluating patient, direct bedside care, chart review, placing orders, interpretation of diagnostic studies, discussion with consultants, patient, and family members, as well as other required patient management activities. This time is exclusive of all separately billable procedures, and teaching time and separate from and in addition to any other critical care service time. Admission and Anticipated Discharge Date Admission Date: August 14, 2024 Subjective Patient seen and examined at bedside. No acute distress, no events overnight He was on 0.11 of Levophed and 0.04 of vasopressin On fentanyl for sedation He was breathing slightly over the vent Tmax 38.1 He was opening his eyes to noise but not following any commands Review of Systems 2 Review of Systems: Unobtainable due to endotracheal tube Physical Exam 2 Physical Exam: Constitutional: No respiratory distress HEENT: PERRLA, sluggish response Respiratory system: Decreased air entry bilaterally, no wheeze, no rhonchi, positive crackles bilateral lower lobe CVS: S1-S2 positive, no murmurs or gallops Abdomen: Soft, nontender, nondistended, positive bowel sounds x4 Extremities: +2 pulses bilaterally radialis/ dorsalis pedis, no cyanosis, +2 pitting edema bilateral lower extremity, right first and second toe amputation Neuro: Breathing over the vent, opening eyes to noise, does not follow any commands Psych: Unable to assess G/U: Positive Sarmiento Skin: no rashes, warm and dry Lymphatic: no cervical or axillary lymphadenopathy Results & Data Results & Data Vital Signs (Past 12 Hours) Vital Signs Temp Pulse Resp BP Pulse Ox FiO2 08/22/24 06:00 135/85 08/22/24 06:00 135/85 08/22/24 06:00 38.1 C H 98 H 26 H 91 08/22/24 05:30 136/80 08/22/24 05:18 38.2 C H 103 H 24 93 08/22/24 05:00 149/89 H 08/22/24 04:48 38.3 C H 102 H 26 H 94 08/22/24 04:45 38.4 C H 103 H 24 94 08/22/24 04:30 38.5 C H 111 H 25 H 94 08/22/24 04:30 144/82 H 08/22/24 04:30 144/82 H 08/22/24 04:00 147/89 H 08/22/24 04:00 147/89 H 08/22/24 04:00 147/89 H 08/22/24 04:00 147/89 H 08/22/24 04:00 147/89 H 08/22/24 04:00 38.6 C H 102 H 34 H 96 08/22/24 03:45 38.7 C H 112 H 27 H 96 08/22/24 03:38 113 H 27 H 96 80 08/22/24 03:30 38.7 C H 112 H 26 H 96 08/22/24 03:30 133/76 08/22/24 03:30 133/76 08/22/24 03:27 38.7 C H 113 H 31 H 95 08/22/24 03:00 38.8 C H 115 H 30 H 96 08/22/24 03:00 130/82 08/22/24 03:00 130/82 08/22/24 03:00 130/82 08/22/24 02:57 38.8 C H 110 H 29 H 97 08/22/24 02:30 116/79 08/22/24 02:30 116/79 08/22/24 02:30 38.9 C H 115 H 30 H 96 08/22/24 02:18 39.0 C H 120 H 28 H 95 08/22/24 02:12 39.1 C H 120 H 29 H 95 08/22/24 01:36 39.3 C H 119 H 30 H 97 08/22/24 01:30 115/76 08/22/24 01:27 39.3 C H 112 H 29 H 96 08/22/24 01:24 39.3 C H 116 H 31 H 96 08/22/24 01:14 126/71 08/22/24 01:03 39.2 C H 118 H 35 H 08/22/24 00:48 119 H 30 H 08/22/24 00:00 120 H 31 H 97 08/22/24 00:00 126/79 08/22/24 00:00 126/79 08/22/24 00:00 126/79 08/22/24 00:00 126/79 08/21/24 23:51 121 H 32 H 97 08/21/24 23:30 114 H 32 H 96 08/21/24 23:30 119/71 08/21/24 23:15 119 H 33 H 97 08/21/24 23:09 126 H 33 H 97 08/21/24 23:04 127 H 36 H 95 100 08/21/24 23:00 116/72 08/21/24 22:48 117 H 36 H 96 08/21/24 22:45 115 H 33 H 96 08/21/24 22:39 121 H 37 H 97 08/21/24 22:30 98/70 L 08/21/24 22:18 100 08/21/24 22:00 120 H 34 H 97 08/21/24 22:00 111/74 08/21/24 22:00 111/74 08/21/24 22:00 111/74 08/21/24 22:00 111/74 08/21/24 21:03 119 H 30 H 94 08/21/24 21:00 86/61 L 08/21/24 20:57 123 H 31 H 92 Laboratory Results 08/22/24 04:35 08/22/24 04:35 Coding Level of Care Code 98556 CRITICAL CARE 30-74M Diagnoses Hypercalcemia E83.52 Transaminitis R74.01 Encephalopathy G93.40 Cellulitis of left lower extremity L03.116 Diabetic foot ulcer E11.621; L97.412 Diabetes mellitus type: type 2 Diabetic foot ulcer location: midfoot Laterality: right Non-pressure ulcer stage: with fat layer exposed JUANA (acute kidney injury) N17.9 Cardiac arrest I46.9 Shock circulatory R57.9 (5) Diabetic foot ulcer Diabetes mellitus type: type 2 Diabetic foot ulcer location: midfoot L aterality: right Non-pressure ulcer stage: with fat layer exposed Qualified Code(s): E11.621 - Type 2 diabetes mellitus with foot ulcer; L97.412 - Non- pressure chronic ulcer of right heel and midfoot with fat layer exposed
[2024-08-22] MEDS ORDERED: DAPTOmycin 450 MG in SYRINGE 0 ML IV SCH (09:00)
[2024-08-22] MEDS: PANTOprazole 40 MG/10 ML SYR IV SCH (09:27)
--- NOTE | 2024-08-22 09:29 | Procedure Note ---
Procedure Note Date of Service August 22, 2024 Procedure: Internal Jugular Central Line Placement Attending: Dr. Camacho APC: Dayron Cruz PA-C Indication: Central Drug Administration, Poor Venous Access, Multiple Lab Draws Necessary, etc. Anesthesia: Lidocaine 1% Emergent consent implied in the setting of active extremis requiring multiple vasopressors at dose is not favorable for peripheral administration, poor peripheral access, need for frequent lab draws, etc. A time-out was completed verifying correct patient, procedure, site, positioning, and implants(s) or special equipment if applicable. Patient's RIGHT Neck was cleansed and draped in the typical sterile fashion using Chloraprep. The Internal Jugular Vein and Carotid Artery were identified using ultrasound. The superficial tissue was anesthetized using 5.0 mL of 1% lidocaine without epinephrine under direct visualization with the ultrasound. After adequate anesthetization was achieved, the Internal Jugular vein was cannulated under direct ultrasound guidance using an introducer needle on a syringe. Good venous blood return was maintained prior to removal of syringe from introducer needle. Using Seldinger Technique, a guide wire was advanced through the introducer needle without resistance. The introducer needle was removed and ultrasound images were obtained of the guide wire within the Internal Jugular Vein and saved to the patient's medical record. A small incision was made in penetrating fashion at the guide wire insertion site utilizing an 11 blade scalpel. The dilator was advanced to the vessel without resistance. The dilator was exchanged for the triple lumen catheter which was advanced into the vessel without resista nce. The guide wire was removed intact from the catheter without issue. Claves were placed on each catheter tip with confirmation of good blood flow from each lumen. Each port was easily flushed with sterile saline. The catheter was placed at 16 cm and sutured in place. BioPatch was applied to the catheter and a sterile Tegaderm dressing was applied over the catheter with careful attention to sterility. Patient tolerated procedure well. No immediate complications were met. Post procedure x-ray was completed, placement was appropriate and no pneumothorax was noted. Images obtained are saved for permanent record Procedural Ultrasound Guidance: Procedure Date: 08/22/2024 Indication: Poor peripheral access, need for high dose pressors, frequent lab draws, etc. Attending: Dr. Camacho APC: Dayron Cruz PA-C Artery AND Vein visualized: YES Compressible Vein: YES Guidewire or Short Catheter seen in vein prior to dilation: YES Line confirmed in Vein with ultrasound: YES Images obtained are saved for permanent record. [facility] [place] [place] Codes (Charges) Tubes, Drains, and Vasc Access Procedure 1: Tubes, Drains, and Vasc Access: [id number] Insertion Of Non-tunneled Catheter Age 3 Yrs> Procedure 2: Tubes, Drains, and Vasc Access: [id number] Ultrasound Guidance For Vascular Coding CPT Codes Tubes, Drains, and Vasc Access - Tubes, Drains, and Vasc Access: [id number] Insertion Of Non-tunneled Catheter Age 3 Yrs> ([id number]) Tubes, Drains, and Vasc Access - Tubes, Drains, and Vasc Access: [id number] Ultrasound Guidance For Vascular ([id number]) Additional Codes Date of Service (PG.SURGERY)
--- NOTE | 2024-08-22 09:47 | XRay Report ---
XR chest 1V portable CLINICAL HISTORY: s/p RIGHT IJ CVL COMPARISON STUDY: 08/21/2024 FINDINGS: Endotracheal tube tip is stable at the thoracic inlet. Nasogastric tube tip is off the film inferiorly. Interval right central catheter tip is at the cavoatrial junction. Stable right PICC. No pneumothorax. Heart size and pulmonary vasculature are normal. There is mild stranding at the right lung base, improved. IMPRESSION: 1. No pneumothorax. 2. Mild stranding right lung base, improved. ACT 112: Negative or not required by law. Electronically signed by: Morgan Medina M.D. 08/22/2024 9:46 AM
--- NOTE | 2024-08-22 09:58 | Nephrology Progress Note ---
Date of Service August 22, 2024 Assessment & Plan (1) JUANA (acute kidney injury): Plan: slightly improving stage 3 nonoliguric JUANA from ATN w/ sepsis; AIN is another possibility here . creat essentially stable since 08/15. 2.1L UOP past 24 hrs Admitted [facility] 08/02-08/11 >> Date Creat Ca C02 consistently 18-19 on these dates; phos in high ones 08/06-08/10 08/08 0.8 7.5 08/09 1.0 7.5 08/10 1.6 6.8 08/11 2.8 6.9 Also during [facility] admission had 08/07 drug reaction to ANCEF w/ rash and F > rounding team thought this might be drug fever. d/c to [facility] 08/11 where he continued to have F, dyspnea, ongoing redness/wound concerns and had at least one dose of rocephin ATN could be Ischemic or toxic in the setting of Sepsis/vanco. acute interstitial nephritis is also on differential; reluctant to give steroids in setting of therapy for OM and concerns for aspiration PNA doubt an abrupt MGUS; could consider GN but he'd need biopsy to diagnose Admitting creatinine on 08/13 4.5, which was peak value On 08/21 he had a cardiac arrest > became oliguric w/ 125 mL UOP for 12 h ON; ? if UOP improving 1.8 gm proteinuria >>>not overloaded; if anything in shock >>>oliguria >>>slightly worse JUANA after cardiac arrest >>mild hypernatremia >continue LR at 100 mL hourly >pressors as needed to keep MAP > 65 >agree w/ repeat BMP later today >if uop not improving may need to consider dialysis; family brought it up on their own > did d/w Dr Camacho who will discuss further w/ family > would start w/ temp cath if needed given fevers >agree with FWF 200 mL q8h >>mutliple calls out to lab to f/u on urine eos; marked eosinophilia on periph smear; needs 3 negative specimens before we call it negative no major issues with fluid overload and/or lytes except Ca and now hypernatremia No need of Dialysis however he is not out of danger yet given he is still very sick and not in full recovery path. Obstruction already ruled out. >>ordered CBC/Diff for am; ordered urine eos x 2 checks, ordered prot/creat assay; did have some eosinophilia a few days back I and O charting. Daily renal panel and CBC. maintain good hemodynamics. Hold metformin, Jardiance, Lisinopril. No NSAIDS, no contrast agents or Diuretics for now. As much as possible use alternate Abx--no vancomycin, no cephalosporins Care coordinated w/ Dr Camacho in person re calcium status, FW flushes, IVF, possibility of dialysis, adding AIN to ddx; we are in agreement. (2) Sepsis: Plan: Source is diabetic Ulcer/OM with recent complications now +/- aspiration w/ TF versus other? >>he did have C glabrata >100K on urine cx at admission and had thrush at [facility] > ordered fungal blood cx; smear negative >LP deferred for now while pending MS tanesha (3) Encephalopathy chronic: Plan: chronic, eg, multiple days; since I started service on 08/20 >> withdraws to painful stim only one month ago this pt was working confused/ sluggish but awake on 08/13 arrival > knew name and that was in hospital; had been sent d/t F, AMS by 08/16 neuro c/s for encephalopathy > difficult to arouse at that time but arouseable, would say name since then 08/20 my arrival and per RN report from 08/19, withdraws to painful stim only >> ?multifactorial from hypercalcemia plus other? (4) Hypercalcemia: Plan: RESOLVED after low dose bisphosphonate; hopefully his MS will improve with lower calcium MONITOR for hypocalcemia, which he had in [facility] corrected Ca 13.8, Ca 12.8 on 08/20; Ca 12.4 on 08/21; Ca 9.4 on 08/22 25 OH D 26; phos 3.9 PTH 7 on 08/19 calcitonin IM 400 units q 12h x 2 days - started 08/20 >>stopped calcitonin lower dose zoledronic acid > 2 mg IV (reduced dose run slowly over 60 min) given 08/20 no obvious meds causing this, at least not this admission; notably at [facility] admission 08/02-08/11 he was consistently hypophosphatemic and hypocalcemic hold IVF for now >>await PTHrp <<not likely to be helpful; done for completeness >>pls check phos, mag, ca daily Admission and Anticipated Discharge Date Admission Date: August 14, 2024 Subjective joan'd during oral care > asystole; s/p resuscitation, on 3 now 2 pressors and on vent. febrile Review of Systems 2 Review of Systems: Unobtainable due to endotracheal tube and Unobtainable due to reduced consciousness Physical Exam 2 Constitutional: well developed (intubated), well nourished and + altered mental status; no acute distress ENMT: Mouth: + dry oral mucous membranes Respiratory: normal respiratory effort and + tachypneic; no respiratory distress Auscultation: + diminished lung sounds Cardiovascular: Rate/Rhythm: regular rate and regular rhythm Extremities: n o edema Gastrointestinal (Abdomen): Inspection/Auscultation: + abdomen distended and normal bowel sounds Percussion/Palpation: + abdomen tender (diffusely TTP) and abdomen soft Skin: no rashes, warm and dry Neurologic: not responsive except to pain Results & Data Vital Signs (Past 12 Hours) Vital Signs Temp Pulse Resp BP Pulse Ox O2 Del Method FiO2 08/22/24 09:07 60 08/22/24 08:50 Mechanical Vent 60 08/22/24 08:03 38.3 C H 96 H 26 H 97 08/22/24 08:00 130/82 08/22/24 07:57 38.3 C H 104 H 25 H 99 08/22/24 07:47 98 H 29 H 96 70 08/22/24 07:30 38.4 C H 103 H 24 100 08/22/24 07:30 142/80 H 08/22/24 07:09 38.3 C H 94 H 25 H 99 08/22/24 07:00 142/90 H 08/22/24 06:00 135/85 08/22/24 06:00 135/85 08/22/24 06:00 38.1 C H 98 H 26 H 91 08/22/24 05:30 136/80 08/22/24 05:18 38.2 C H 103 H 24 93 08/22/24 05:00 149/89 H 08/22/24 04:48 38.3 C H 102 H 26 H 94 08/22/24 04:45 38.4 C H 103 H 24 94 08/22/24 04:30 38.5 C H 111 H 25 H 94 08/22/24 04:30 144/82 H 08/22/24 04:30 144/82 H 08/22/24 04:00 147/89 H 08/22/24 04:00 147/89 H 08/22/24 04:00 147/89 H 08/22/24 04:00 147/89 H 08/22/24 04:00 147/89 H 08/22/24 04:00 38.6 C H 102 H 34 H 96 08/22/24 03:45 38.7 C H 112 H 27 H 96 08/22/24 03:38 113 H 27 H 96 80 08/22/24 03:30 38.7 C H 112 H 26 H 96 08/22/24 03:30 133/76 08/22/24 03:30 133/76 08/22/24 03:27 38.7 C H 113 H 31 H 95 08/22/24 03:00 38.8 C H 115 H 30 H 96 08/22/24 03:00 130/82 08/22/24 03:00 130/82 08/22/24 03:00 130/82 08/22/24 02:57 38.8 C H 110 H 29 H 97 08/22/24 02:30 116/79 08/22/24 02:30 116/79 08/22/24 02:30 38.9 C H 115 H 30 H 96 08/22/24 02:18 39.0 C H 120 H 28 H 95 08/22/24 02:12 39.1 C H 120 H 29 H 95 08/22/24 01:36 39.3 C H 119 H 30 H 97 08/22/24 01:30 115/76 08/22/24 01:27 39.3 C H 112 H 29 H 96 08/22/24 01:24 39.3 C H 116 H 31 H 96 08/22/24 01:14 126/71 08/22/24 01:03 39.2 C H 118 H 35 H 08/22/24 00:48 119 H 30 H 08/22/24 00:00 120 H 31 H 97 08/22/24 00:00 126/79 08/22/24 00:00 126/79 08/22/24 00:00 126/79 08/22/24 00:00 126/79 02/25/25 23:51 121 H 32 H 97 08/21/24 23:30 114 H 32 H 96 08/21/24 23:30 119/71 08/21/24 23:15 119 H 33 H 97 08/21/24 23:09 126 H 33 H 97 08/21/24 23:04 127 H 36 H 95 100 08/21/24 23:00 116/72 08/21/24 22:48 117 H 36 H 96 08/21/24 22:45 115 H 33 H 96 08/21/24 22:39 121 H 37 H 97 08/21/24 22:30 98/70 L 08/21/24 22:18 100 08/21/24 22:00 120 H 34 H 97 08/21/24 22:00 111/74 08/21/24 22:00 111/74 08/21/24 22:00 111/74 08/21/24 22:00 111/ Laboratory Results 08/22/24 04:35 08/22/24 04:35 lactate 8.7 phos 7.1 Ca 9[address] chest (images personally reviewed/agree w/ report) Endotracheal tube is approximately 2.5 cm from mauricio. Borderline low position. Nasogastric tube is appropriately placed. Mild right sided pleural effusion with subpleural consolidation and collapse in right lower lobe. Possibly related to cardiac arrest. Minimal left sided pleural effusion. Few atelectatic bands in both lungs. Right hemidiaphragm is raised, possible eventration/palsy.
[2024-08-22] MEDS ORDERED: LEVALBUTEROL 1.25 MG/3 ML NEB NEB PRN (10:11)
[2024-08-22] MEDS ORDERED: IPRATROPIUM BROMIDE NEB SOLN 0.02% 0.5MG/2.5ML VIAL INH PRN (10:11)
[2024-08-22 10:52] LABS: Troponin I High Sensitivity 213.8 pg/ml (0-20)
[2024-08-22] MEDS: HYDROCORTISONE SOD 50 MG in SYRINGE 0 ML IV SCH (12:01)
[2024-08-22] MEDS: NOVASOURCE RENAL 2.0 CAL 1000ML BAG OG SCH (13:18)
[2024-08-22] MEDS ORDERED: STAT IV Infusion **Titration per Protocol STA (13:44)
[2024-08-22] MEDS: INSULIN REGULAR 250 UNITS in SODIUM CHLORIDE 0.9% 247.5 ML IV SCH (14:33)
[2024-08-22] MEDS: NovoLIN-R BOLUS FROM BAG IV ONE (14:38)
[2024-08-22] MEDS: SEVERE STRESS LEVEL ONE (14:38)
[2024-08-22] MEDS: INSULIN PROTOCOL GOAL RANGE ONE (14:38)
--- NOTE | 2024-08-22 15:13 | Communication Note ---
Date of Service: August 22, 2024 Slight blip in liver enzymes like related to cardiac arrest. Recheck tomorrow
[2024-08-22 15:34] LABS: Calcium 7.4 mg/dl (8.6-10.3); Potassium 3.5 mmol/L (3.5-5.1)
--- NOTE | 2024-08-22 15:40 | Cardiology Consultation ---
Date of Consultation August 22, 2024 Assessment & Plan (1) Cardiac arrest: (2) Shock circulatory: (3) JUANA (acute kidney injury): (4) Encephalopathy chronic: Plan Complex 63-year-old male consulted after PEA/bradycardic cardiac arrest. No malignant ventricular arrhythmias. Bradycardia and marked bradycardia occurred after oral care. Question vagally mediated initially. Echocardiogram with hyperdynamic LV function, no pericardial effusion or significant valvular disease EKGs did not suggest myocardial infarction or ischemia Suspect component of hypovolemia/hypoxia contributing with hyperdynamic LV function given sepsis and worsening renal insufficiency. Currently being supported with pressors Appreciate banquet server on call input No signs of myocardial injury or ischemia. PEA post resuscitation checklist being investigated. Continue to treat sepsis Contact with question History of Present Illness Reason for Consultation: Bradycardia, pulseless electrical activation cardiac arrest Requesting Physician: Pushpa Martinez Attending Physician: Tom Schroeder MD History of Present Illness Patient is a 63-year-old male referred from intensive care unit setting, intubated and sedated Information gained by review of records, discussion with caregivers. Patient hospitalized with sepsis on 08/14/2024 following prior hospitalization at [facility] for cellulitis/skin wound. Transferred to [facility] from rehab facility with worsening fevers and mental status changes. In hospital records reflect worsening encephalopathy, renal dysfunction Last evening during oral care had transient bradycardia with loss of mentation followed by profound bradycardia with long pauses on telemetry. Code purple then CODE BLUE called. Patient resuscitated with CPR and IV epinephrine. Intubated and transferred to the intensive care unit where patient was begun on IV pressors Echocardiogram done acutely demonstrated hyperdynamic LV function, no pericardial effusion or significant valvular disease Currently unable to add additional due to sedated and intubated state. Allergies Allergy/AdvReac Type Severity Reaction Status Date / Time cefazolin Allergy Intermediate Rash Verified 08/14/24 23:14 Home Medications Medication Instructions Recorded Confirmed Type Lactobacillus acidophilus 10 10,000 mmu cells PO DAILY 08/14/24 08/14/24 History billion cell capsule (Probiotic) aspirin 81 mg tablet,delayed 81 mg PO DAILY 08/14/24 08/14/24 History release atenolol 100 mg tablet 100 mg PO DAILY 08/14/24 08/14/24 History atorvastatin 20 mg tablet 20 mg PO DAILY 08/14/24 08/14/24 History bisacodyl 10 mg rectal suppository 10 mg [place] DAILY PRN Constipation 08/14/2407/28 History (Dulcolax (bisacodyl)) ceftriaxone 1 gram intravenous 1 g IV DAILY 08/14/24 08/14/24 History solution cyanocobalamin (vitamin B-12) 500 500 mcg PO DAILY 08/14/24 08/14/24 History mcg tablet empagliflozin 25 mg tablet 25 mg PO DAILY 08/14/24 08/14/24 History gabapentin 300 mg capsule 600 mg PO HS 08/14/24 08/14/24 History hydroxyzine HCl 10 mg tablet 10 mg PO HS PRN Anxiety 08/14/24 08/14/24 History lamotrigine 100 mg tablet 100 mg PO BID 08/14/24 08/14/24 History (Lamictal) lisinopril 20 mg tablet 20 mg PO DAILY 08/14/24 08/14/24 History metformin 500 mg tablet 500 mg PO BID 08/14/24 08/14/24 History multivitamin with minerals 1 tab PO DAILY 08/14/24 08/14/24 History ondansetron 4 mg disintegrating 4 mg PO Q8H PRN Nausea And Vomiting 08/14/24 08/14/24 History tablet oxycodone 5 mg tablet 5 mg PO Q6H PRN Severe Pain (Scale 08/14/24 08/14/24 History Score 7-10) vancomycin 1,000 mg intravenous 1 g IV UD 08/14/24 08/14/24 History injection Patient History Social History Smoking Status: Never smoker Hx Alcohol Use: No Hx Substance Use: No Preferred Language: Bulgarian Communication Ability: Impaired Java Software Architect Required: No Beliefs That Will Affect Care: None Current Living Situation: Personal Care Facility Current Living Situation Comment: Lives at [facility] currently Other Information That Helps Us Care for You: No Feels Safe at Home: Yes Safety Concerns: Feels Safe At This Time Assistive Devices: None Review of Systems Review of Systems: Unobtainable due to endotracheal tube Physical Exam Constitutional: + ill appearing and + obese ENMT: Endotracheal tube in place Neck: + thick neck Respiratory: Upper airway sounds consistent with ventilated state Cardiovascular: Rate/Rhythm: regular rhythm and + tachycardic Heart Sounds: no murmur Gastrointestinal (Abdomen): normal bowel sounds, soft, nontender, no hepatosplenomegaly Results & Data Vital Signs (Past 12 Hours) Vital Signs Temp Pulse Resp BP Pulse Ox O2 Del Method FiO2 08/22/24 12:30 38.1 C H 93 H 22 96 08/22/24 12:30 118/74 08/22/24 12:06 38.2 C H 94 H 23 95 08/22/24 12:00 115/75 08/22/24 11:51 38.2 C H 94 H 20 96 08/22/24 11:33 103 H 27 H 95 60 08/22/24 11:30 111/69 08/22/24 11:27 38.1 C H 95 H 25 H 97 08/22/24 11:03 38.2 C H 95 H 25 H 96 08/22/24 11:00 122/75 08/22/24 10:57 38.2 C H 95 H 26 H 94 08/22/24 10:30 115/76 08/22/24 10:30 38.2 C H 96 H 25 H 94 08/22/24 10:03 38.2 C H 96 H 26 H 94 08/22/24 10:00 137/81 08/22/24 09:57 38.2 C H 91 H 29 H 95 08/22/24 09:30 137/82 08/22/24 09:27 38.1 C H 94 H 29 H 96 08/22/24 09:12 38.2 C H 97 H 27 H 97 08/22/24 09:07 60 08/22/24 09:01 136/71 08/22/24 08:57 38.3 C H 103 H 26 H 97 08/22/24 08:50 Mechanical Vent 60 08/22/24 08:03 38.3 C H 96 H 26 H 97 08/22/24 08:00 130/82 08/22/24 07:57 38.3 C H 104 H 25 H 99 08/22/24 07:47 98 H 29 H 96 70 08/22/24 07:30 38.4 C H 103 H 24 100 08/22/24 07:30 142/80 H 08/22/24 07:09 38.3 C H 94 H 25 H 99 08/22/24 07:00 142/90 H 08/22/24 06:00 135/85 08/22/24 06:00 135/85 08/22/24 06:00 38.1 C H 98 H 26 H 91 08/22/24 05:30 136/80 08/22/24 05:18 38.2 C H 103 H 24 93 08/22/24 05:00 149/89 H 08/22/24 04:48 38.3 C H 102 H 26 H 94 08/22/24 04:45 38.4 C H 103 H 24 94 08/22/24 04:30 38.5 C H 111 H 25 H 94 08/22/24 04:30 144/82 H 08/22/24 04:30 144/82 H 08/22/24 04:00 147/89 H 08/22/24 04:00 147/89 H 08/22/24 04:00 147/89 H 08/22/24 04:00 147/89 H 08/22/24 04:00 147/89 H 08/22/24 04:00 38.6 C H 102 H 34 H 96 08/22/24 03:45 38.7 C H 112 H 27 H 96 Laboratory Results Laboratory Results - last 24 hr 08/21/24 08/21/24 08/21/24 16:06 16:27 18:00 WBC RBC Hgb POC Hgb Hct POC Hct MCV MCH MCHC RDW Std Deviation RDW Coeff of Eladio Plt Count MPV Immature Gran % (Auto) Neut % (Auto) Lymph % (Auto) [place] % (Auto) Eos % (Auto) Baso % (Auto) Neut # (Auto) Lymph # (Auto) [place] # (Auto) Eos # (Auto) Baso # (Auto) Immature Gran # (Auto) Absolute Nucleated RBC Nucleated RBC % (auto) Neutrophils % (Manual) Lymphocytes % (Manual) Monocytes % (Manual) Eosinophils % (Manual) Metamyelocytes % (Man) Myelocytes % (Man) Neutrophils # (Manual) Total Absolute Neuts Lymphocytes # (Manual) Total Abs Lymphocytes Monocytes # (Manual) Eosinophils # (Manual) Metamyelocytes # (Man) Myelocytes # (Manual) Large Granular Lymphs # Lrg Granular Lymphs Blood Smear Review Toxic Vacuolation Polychromasia Anisocytosis Eosinophil Count, Calc PT INR Specimen Type Sample Site POC pH POC pCO2 POC pO2 POC HCO3 POC Total CO2 POC Base Excess O2 Sat Pulse Oximetry ABG pH (Temp Correct) ABG pCO2 (Temp Corrct POC ABG pO2 at Pt Temp POC ABG O2 Sat Noah Test O2 Delivery Device Vent Mode POC FiO2 End Tidal CO2 POC Sodium Sodium POC Potassium Potassium Chloride Carbon Dioxide Anion Gap BUN Creatinine Est Cr Clr Drug Dosing eGFR BUN/Creatinine Ratio Glucose POC Glucose 64 L* 91 POC Glucose (other) Lactate Calcium Phosphorus Magnesium Total Bilirubin Direct Bilirubin AST ALT Alkaline Phosphatase Troponin I High Sens Total Protein Albumin Globulin Albumin/Globulin Ratio Procalcitonin Random Cortisol Nasal Screen MRSA (PCR) Negative 08/21/24 08/21/24 08/21/24 18:03 18:13 19:15 WBC 23.23 H D RBC 3.41 L Hgb 10.0 L POC Hgb 9.5 L Hct 34.0 L POC Hct 28 L MCV 99.7 D MCH 29.3 MCHC 29.4 L RDW Std Deviation 60.6 H RDW Coeff of Eladio 18.6 H Plt Count 341 MPV 9.6 Immature Gran % (Auto) Neut % (Auto) Lymph % (Auto) [place] % (Auto) Eos % (Auto) Baso % (Auto) Neut # (Auto) Lymph # (Auto) [place] # (Auto) Eos # (Auto) Baso # (Auto) Immature Gran # (Auto) Absolute Nucleated RBC 1.24 H Nucleated RBC % (auto) 5.3 Neutrophils % (Manual) 32 Lymphocytes % (Manual) 18 Monocytes % (Manual) 4 Eosinophils % (Manual) 7 Metamyelocytes % (Man) 5 Myelocytes % (Man) 3 Neutrophils # (Manual) 7.43 H Total Absolute Neuts 7.43 H Lymphocytes # (Manual) 4.18 H Total Abs Lymphocytes 11.38 H Monocytes # (Manual) 0.93 H Eosinophils # (Manual) 1.63 H Metamyelocytes # (Man) 1.16 H Myelocytes # (Manual) 0.70 H Large Granular Lymphs 31 # Lrg Granular Lymphs 7.20 Blood Smear Review Toxic Vacuolation 1+ Polychromasia 1+ Anisocytosis Present Eosinophil Count, Calc 1630 H PT INR Specimen Type Arterial Sample Site Art Line POC pH 7.34 L POC pCO2 34 L POC pO2 84 POC HCO3 18 L POC Total CO2 19 L POC Base Excess -7.0 O2 Sat Pulse Oximetry 97 ABG pH (Temp Correct) 7.333 L ABG pCO2 (Temp Corrct 35 POC ABG pO2 at Pt Temp 85 POC ABG O2 Sat 96.0 H Noah Test NA O2 Delivery Device Ventilator Vent Mode AC POC FiO2 100 End Tidal CO2 20 POC Sodium 156 H* Sodium 151 H POC Potassium 3.1 L Potassium 4.0 Chloride 123 H Carbon Dioxide 17 L Anion Gap 11 BUN 36 H Creatinine 4.16 H Est Cr Clr Drug Dosing 18.3 eGFR 15.10 BUN/Creatinine Ratio 8.7 L Glucose 76 POC Glucose 74 POC Glucose (other) Lactate 7.6 H* Calcium 11.8 H Phosphorus 7.1 H D Magnesium 2.1 Total Bilirubin 2.4 H Direct Bilirubin AST 235 H ALT 77 H Alkaline Phosphatase 263 H Troponin I High Sens Total Protein 6.1 Albumin 2.1 L Globulin 4.0 Albumin/Globulin Ratio 0.5 L Procalcitonin 33.90 H Random Cortisol 5.83 Nasal Screen MRSA (PCR) 08/21/24 08/21/24 08/21/24 19:58 21:27 23:29 WBC RBC Hgb POC Hgb Hct POC Hct MCV MCH MCHC RDW Std Deviation RDW Coeff of Eladio Plt Count MPV Immature Gran % (Auto) Neut % (Auto) Lymph % (Auto) [place] % (Auto) Eos % (Auto) Baso % (Auto) Neut # (Auto) Lymph # (Auto) [place] # (Auto) Eos # (Auto) Baso # (Auto) Immature Gran # (Auto) Absolute Nucleated RBC Nucleated RBC % (auto) Neutrophils % (Manual) Lymphocytes % (Manual) Monocytes % (Manual) Eosinophils % (Manual) Metamyelocytes % (Man) Myelocytes % (Man) Neutrophils # (Manual) Total Absolute Neuts Lymphocytes # (Manual) Total Abs Lymphocytes Monocytes # (Manual) Eosinophils # (Manual) Metamyelocytes # (Man) Myelocytes # (Manual) Large Granular Lymphs # Lrg Granular Lymphs Blood Smear Review Toxic Vacuolation Polychromasia Anisocytosis Eosinophil Count, Calc PT INR Specimen Type Sample Site POC pH POC pCO2 POC pO2 POC HCO3 POC Total CO2 POC Base Excess O2 Sat Pulse Oximetry ABG pH (Temp Correct) ABG pCO2 (Temp Corrct POC ABG pO2 at Pt Temp POC ABG O2 Sat Noah Test O2 Delivery Device Vent Mode POC FiO2 End Tidal CO2 POC Sodium Sodium POC Potassium Potassium Chloride Carbon Dioxide Anion Gap BUN Creatinine Est Cr Clr Drug Dosing eGFR BUN/Creatinine Ratio Glucose POC Glucose POC Glucose (other) 64 L* 104 H Lactate 6.1 H* Calcium Phosphorus Magnesium Total Bilirubin Direct Bilirubin AST ALT Alkaline Phosphatase Troponin I High Sens Total Protein Albumin Globulin Albumin/Globulin Ratio Procalcitonin Random Cortisol Nasal Screen MRSA (PCR) 08/21/24 08/22/24 08/22/24 23:37 04:35 06:53 WBC 20.18 H RBC 3.40 L Hgb 10.0 L POC Hgb 9.9 L Hct 31.7 L POC Hct 29 L MCV 93.2 D MCH 29.4 MCHC 31.5 L RDW Std Deviation 55.1 H RDW Coeff of Eladio 18.9 H Plt Count 429 H MPV 10.0 Immature Gran % (Auto) 9.4 Neut % (Auto) 73.2 Lymph % (Auto) 12.1 [place] % (Auto) 3.9 Eos % (Auto) 0.8 Baso % (Auto) 0.6 Neut # (Auto) 14.77 H Lymph # (Auto) 2.45 [place] # (Auto) 0.78 H Eos # (Auto) 0.17 Baso # (Auto) 0.12 Immature Gran # (Auto) 1.89 H Absolute Nucleated RBC 1.94 H Nucleated RBC % (auto) 9.6 Neutrophils % (Manual) Lymphocytes % (Manual) Monocytes % (Manual) Eosinophils % (Manual) Metamyelocytes % (Man) Myelocytes % (Man) Neutrophils # (Manual) Total Absolute Neuts Lymphocytes # (Manual) Total Abs Lymphocytes Monocytes # (Manual) Eosinophils # (Manual) Metamyelocytes # (Man) Myelocytes # (Manual) Large Granular Lymphs # Lrg Granular Lymphs Blood Smear Review Toxic Vacuolation Polychromasia 1+ Anisocytosis Eosinophil Count, Calc PT 15.0 H INR 1.4 H Specimen Type Arterial Sample Site Art Line POC pH 7.40 POC pCO2 28 L POC pO2 83 POC HCO3 18 L POC Total CO2 18 L POC Base Excess -7.0 O2 Sat Pulse Oximetry 98 ABG pH (Temp Correct) 7.402 ABG pCO2 (Temp Corrct 28 L POC ABG pO2 at Pt Temp 83 POC ABG O2 Sat 96.0 H Noah Test NA O2 Delivery Device Ventilator Vent Mode AC POC FiO2 100 End Tidal CO2 22 POC Sodium 153 H Sodium 150 H POC Potassium 3.1 L Potassium 4.0 Chloride 111 H Carbon Dioxide 24 Anion Gap 15 H BUN 36 H Creatinine 4.15 H Est Cr Clr Drug Dosing 18.3 eGFR 15.14 BUN/Creatinine Ratio 8.7 L Glucose 176 H POC Glucose POC Glucose (other) 176 H Lactate 8.7 H* Calcium 9.4 D Phosphorus Magnesium Total Bilirubin 2.9 H Direct Bilirubin 1.8 H AST 380 H ALT 87 H Alkaline Phosphatase 265 H Troponin I High Sens 213.8 H* Total Protein 6.2 Albumin 2.0 L Globulin Albumin/Globulin Ratio Procalcitonin Random Cortisol Nasal Screen MRSA (PCR) 08/22/24 08/22/24 08/22/24 07:36 11:59 12:04 WBC RBC Hgb POC Hgb 9.9 L Hct POC Hct 29 L MCV MCH MCHC RDW Std Deviation RDW Coeff of Eladio Plt Count MPV Immature Gran % (Auto) Neut % (Auto) Lymph % (Auto) [place] % (Auto) Eos % (Auto) Baso % (Auto) Neut # (Auto) Lymph # (Auto) [place] # (Auto) Eos # (Auto) Baso # (Auto) Immature Gran # (Auto) Absolute Nucleated RBC Nucleated RBC % (auto) Neutrophils % (Manual) Lymphocytes % (Manual) Monocytes % (Manual) Eosinophils % (Manual) Metamyelocytes % (Man) Myelocytes % (Man) Neutrophils # (Manual) Total Absolute Neuts Lymphocytes # (Manual) Total Abs Lymphocytes Monocytes # (Manual) Eosinophils # (Manual) Metamyelocytes # (Man) Myelocytes # (Manual) Large Granular Lymphs # Lrg Granular Lymphs Blood Smear Review Toxic Vacuolation Polychromasia Anisocytosis Eosinophil Count, Calc PT INR Specimen Type Arterial Sample Site Art Line POC pH 7.43 POC pCO2 34 L POC pO2 115 H POC HCO3 22 POC Total CO2 23 L POC Base Excess -2.0 O2 Sat Pulse Oximetry 100 ABG pH (Temp Correct) 7.408 ABG pCO2 (Temp Corrct 36 POC ABG pO2 at Pt Temp 124 POC ABG O2 Sat 99.0 H Noah Test NA O2 Delivery Device Ventilator Vent Mode AC POC FiO2 70 End Tidal CO2 26 POC Sodium 150 H Sodium POC Potassium 4.4 Potassium Chloride Carbon Dioxide Anion Gap BUN Creatinine Est Cr Clr Drug Dosing eGFR BUN/Creatinine Ratio Glucose POC Glucose POC Glucose (other) 252 H Lactate 5.5 H* Calcium Phosphorus Magnesium Total Bilirubin Direct Bilirubin AST ALT Alkaline Phosphatase Troponin I High Sens Total Protein Albumin Globulin Albumin/Globulin Ratio Procalcitonin Random Cortisol Nasal Screen MRSA (PCR) 08/22/24 08/22/24 14:36 14:52 WBC RBC Hgb POC Hgb Hct POC Hct MCV MCH MCHC RDW Std Deviation RDW Coeff of Eladio Plt Count MPV Immature Gran % (Auto) Neut % (Auto) Lymph % (Auto) [place] % (Auto) Eos % (Auto) Baso % (Auto) Neut # (Auto) Lymph # (Auto) [place] # (Auto) Eos # (Auto) Baso # (Auto) Immature Gran # (Auto) Absolute Nucleated RBC Nucleated RBC % (auto) Neutrophils % (Manual) Lymphocytes % (Manual) Monocytes % (Manual) Eosinophils % (Manual) Metamyelocytes % (Man) Myelocytes % (Man) Neutrophils # (Manual) Total Absolute Neuts Lymphocytes # (Manual) Total Abs Lymphocytes Monocytes # (Manual) Eosinophils # (Manual) Metamyelocytes # (Man) Myelocytes # (Manual) Large Granular Lymphs # Lrg Granular Lymphs Blood Smear Review Toxic Vacuolation Polychromasia Anisocytosis Eosinophil Count, Calc PT INR Specimen Type Sample Site POC pH POC pCO2 POC pO2 POC HCO3 POC Total CO2 POC Base Excess O2 Sat Pulse Oximetry ABG pH (Temp Correct) ABG pCO2 (Temp Corrct POC ABG pO2 at Pt Temp POC ABG O2 Sat Noah Test O2 Delivery Device Vent Mode POC FiO2 End Tidal CO2 POC Sodium Sodium 148 H POC Potassium Potassium 3.5 Chloride 111 H Carbon Dioxide 26 Anion Gap 11 BUN 42 H Creatinine 4.19 H Est Cr Clr Drug Dosing 20.0 eGFR 14.97 BUN/Creatinine Ratio 10.0 Glucose 265 H POC Glucose POC Glucose (other) 264 H Lactate Calcium 7.4 L D Phosphorus Magnesium Total Bilirubin Direct Bilirubin AST ALT Alkaline Phosphatase Troponin I High Sens Total Protein Albumin Globulin Albumin/Globulin Ratio Procalcitonin Random Cortisol Nasal Screen MRSA (PCR)
--- NOTE | 2024-08-22 16:15 | Hospitalist Progress Note ---
Date of Service August 22, 2024 Assessment & Plan (1) Sepsis: Plan: Per previous hospitalist w/ addendum 63-yo M w/ type 2 diabetes, diabetic ulcer of right midfoot, dyslipidemia, hypophosphatemia, hypertension, history of C. difficile colitis, oral thrush, cellulitis of right leg, abscess of right foot, absent seizures, history of lung cancer, was sent in by [facility] rehab because of confusion and fevers. Patient was in [facility] from 08/02/2024 to 08/11/2024. He was admitted to the [facility] for right foot swelling and redness and fevers. And right foot x-ray showed healed fracture through the midshaft of second metatarsal bone with calcified bridging callus. Pes planus. He was admitted for right foot infection. MRI of the foot was negative for osteomyelitis and showed cellulitis and possible abscess. Status post I&D by podiatry at bedside on August 03 with a deep purulence obtained and sent for culture. Status post I&D with podiatry for sepsis on August 06 and probe to bone very favorable and no clear abscess as suggested by CT scan. During hospital stay he was also completed Tamiflu for influenza. ID suggested Ancef until September 17 and to treat as osteomyelitis for MSSA on wound cultures with 6 weeks of IV antibiotics. On August 07 patient had rash thought to be from Ancef. Rash was worsening after second dose of Ancef and patient was having fevers that thought to be lined up from Ancef doses and was thought possible drug fever. And ID recommended IV Vanco via PICC line. Vancomycin dosing goal AUC 400-600 Mg/liter/hour. And tanesha alberts was discharged to [facility] on 08/11/2024. At [facility] patient was still having fevers and shortness of breath and erythema around his wound ,does not appear to be receding thought to be spreading. [facility] made ID aware. As per the med rec from the [facility] seems patient had Rocephin. And was sent to our ER today because of fever and altered mental status. Patient can tell his name. Knows that he is in the hospital. Could tell his date of . But could not tell current dates. Denies any cough. Denies headache. Denies chest pain. Denies shortness of breath. Denies belly pain. Status post Sarmiento in the ER. Patient seems poor historian at this time. No sacral ulcer seen. 08/21/[address] Canchola - Code Blue Patient noted to be bradycardic and pale while getting oral care today. Patient was noted to have heart rate in 50-40s and became tachypneic. Prior to the episode, tube feeds were held for oral care per RN. Initially code purple was called and later changed to CODE BLUE and ACLS protocol was performed. Patient required CPR and needed intubation for respiratory support. IV epinephrine was administered per protocol. Chest x-ray, ABG, blood work ordered post intubation. Patient was will be transferred to ICU for further management. Critical care consulted. Updated patient's family over the phone. Sepsis Bilateral lower extremity cellulitis Right foot diabetic ulcer Recently on [facility] was placed on IV Vanco for 6 weeks until September 17 to treat his osteomyelitis though MRI was negative and abscess was I&D by podiatry at [facility] --Right Foot X ray: No definite radiographic evidence of osteomyelitis as described. --Venous Doppler:No evidence of deep venous thrombus within the bilateral lower extremities. --Arterial Doppler:Negative right lower extremity arterial evaluation. No occlusion or significant hemodynamic stenosis with multiphasic waveforms th roughout. --CT ABD:No bowel obstruction. Severe hepatic steatosis. Hepatomegaly. Anasarca. Small amount of ascites within the pelvis. -- Blood cultures negative to date -- Urine culture: Heather glabrata IV cefepime discontinued as recommended by infectious disease/neurology Received IV fluids, monitor volume status closely Avoid IV Vanco as trough level high, JUANA Appreciate infectious disease input: Once Vanco trough drops < 15 will start the patient on IV daptomycin. (Will renally dose IV daptomycin through 09/17/24) Appreciate Podiatry Input : Given ongoing treatment, will defer MRI foot for now Continue local wound care Aspiration precautions Vanco trough 14.2 on 08/20/[address] Canchola Discussed with ID on 08/21: Recommends to change Dapto, Zosyn to meropenem today. Recommends lumbar puncture. Hold antivirals for lumbar puncture per ID Consulted IR for lumbar puncture tomorrow 08/22 Currently pt intubated, s/p code blue episode as above Pt on vasopressors, febrile Acute metabolic encephalopathy Likely due to above infection/meds DD: Meningitis, encephalitis Suspected urinary tract infection--Less likely --Head CT:No acute findings in the head/brain. --Urine culture: as above --MRI Brain:No evidence of acute or subacute infarct. Reorient frequently to minimize delirium Repeat CT head showed no acute process -Normal ammonia level -Drug screen negative -VBG showed no hypercarbia -TSH elevated, normal free T4 --Thiamine B1 level pending -EEG: This is an abnormal routine EEG in a patient w altered mental state due to 1. Generalized background slowing suggestive of non specific encephalopathy, 2. Triphasic waves which are non specific but commonly seen in metabolic encephalopathies. --Lamictal levels 6.6 --Elevated INR--received vitamin K Could not get lumbar puncture initially due to elevated INR/patient agitated INR 1.4 today Valproic acid held due to rising LFTs. Neurology aware Monitor ammonia levels, received a dose of lactulose on 08/20/2024 Appreciate neurology input. Acute kidney injury likely ATN/toxic secondary to infection, vancomycin/AIN Cr: 4.4>4.1>4.0> 3.8 Creatinine was 1.6 on 08/12/2024 --CT ABD:Mild nonspecific perinephric stranding. No hydronephrosis. Simple 2 cm left renal cyst. No follow-up of this simple cyst is necessary. 08/22 -- current Cr 4.19 - nephrology/ critical care discussed poss. HD w/pt's family Avoid nephrotoxic agents as able Monitor renal function, urinary output Bladder scan as needed Metformin, Jardiance, lisinopril on hold Avoid NSAIDs Monitor for volume status Received IV fluid Appreciate nephrology input Hypercalcemia Hypernatremia Likely due to dehydration Low PTH, vitamin D levels PTH related peptide pending IV fluids as recommended by nephrology Monitor electrolytes closely Also on free water flushes through NG tube Started on calcitonin, Zometa Monitor calcium levels Calcium 12.4 on 08/21 - > now 9.4 -> 7.4 Sodium 149 on 08/21 -> now 150/148 (essentially unchanged) Transaminitis Likely due to sepsis, fatty liver --CT ABD:Hepatic steatosis. Hepatomegaly. Minimal free fluid around the liver and in the pelvis. --Hepatitis panel pending --Gall Bladder USD: Trace ascites. Normal sonographic appearance of the gallbladder. Large fatty liver. --Elevated INR Monitor LFTs Hold Lipitor for now GI following Valproate held due to worsening LFTs Hyponatremia--Resolved Currently hypernatremic as above Anemia Iron deficiency anemia Anemia of chronic disease No obvious signs of bleeding Vit B12, folate levels reviewed Monitor CBC Started on iron supplements Hypertension Hold lisinopril Continue atenolol with holding parameters Monitor DM II Hold home medications Adjust insulin per protocol to minimize hypoglycemic episodes Monitor blood glucose levels Hyperlipidemia Hold statin due to elevated LFTs History of seizures On Lamictal Monitor Remote history of lung cancer Treated with chemo as per records DVT Px: Heparin SQ Code Status Full code Disposition- currently ICU Admission and Anticipated Discharge Date Admission Date: August 14, 2024 Subjective Pt seen in follow up Pt was code blue/ cardiac arrest yesterday -> now in ICU Prior to this admission pt in [place] with diabetic foot / ? abscess/ cellulitis ? osteo Admitted here with JUANA, AMS, also elevated LFTs Intubated, on pressors, febrile Does not respond to voice or tactile stimuli at this time. Discussed w/ RN Nephrology, cardiology, GI, ID consulted Discussed poss. HD in the future Review of Systems Review of Systems: Unobtainable due to cognitive status and Unobtainable due to endotracheal tube Physical Exam Physical Exam: General Appearance: Moderately built and nourished, intubated Head: normocephalic, Atraumatic Neck: + IJ placed Respiratory/Chest: decreased air entry b/l, no wheezing Cardiovascular: S1, S2, No murmur Abdomen/GI:Soft, Bowel sounds present Extremities/Musculoskeletal:normal inspection, 1-2+ B/L LE edema, erythema, R great toe s/p amputation, R foot ulcer Neurologic/Psych: does not open eyes to voice or tactile stimuli on my exam, does not follow commands Skin: warm, dry Results & Data Results & Data Vital Signs (Past 12 Hours) Vital Signs Temp Pulse Resp BP Pulse Ox O2 Del Method FiO2 08/22/24 15:42 94 H 28 H 95 50 08/22/24 12:30 38.1 C H 93 H 22 96 08/22/24 12:30 118/74 08/22/24 12:06 38.2 C H 94 H 23 95 08/22/24 12:00 115/75 08/22/24 11:51 38.2 C H 94 H 20 96 08/22/24 11:33 103 H 27 H 95 60 08/22/24 11:30 111/69 08/22/24 11:27 38.1 C H 95 H 25 H 97 08/22/24 11:03 38.2 C H 95 H 25 H 96 08/22/24 11:00 122/75 08/22/24 10:57 38.2 C H 95 H 26 H 94 08/22/24 10:30 115/76 08/22/24 10:30 38.2 C H 96 H 25 H 94 08/22/24 10:03 38.2 C H 96 H 26 H 94 08/22/24 10:00 137/81 08/22/24 09:57 38.2 C H 91 H 29 H 95 08/22/24 09:30 137/82 08/22/24 09:27 38.1 C H 94 H 29 H 96 08/22/24 09:12 38.2 C H 97 H 27 H 97 08/22/24 09:07 60 08/22/24 09:01 136/71 08/22/24 08:57 38.3 C H 103 H 26 H 97 08/22/24 08:50 Mechanical Vent 60 08/22/24 08:03 38.3 C H 96 H 26 H 97 08/22/24 08:00 130/82 08/22/24 07:57 38.3 C H 104 H 25 H 99 08/22/24 07:47 98 H 29 H 96 70 08/22/24 07:30 38.4 C H 103 H 24 100 08/22/24 07:30 142/80 H 08/22/24 07:09 38.3 C H 94 H 25 H 99 08/22/24 07:00 142/90 H 08/22/24 06:00 135/85 08/22/24 06:00 135/85 08/22/24 06:00 38.1 C H 98 H 26 H 91 08/22/24 05:30 136/80 08/22/24 05:18 38.2 C H 103 H 24 93 08/22/24 05:00 149/89 H 08/22/24 04:48 38.3 C H 102 H 26 H 94 08/22/24 04:45 38.4 C H 103 H 24 94 02/26/25 04:30 38.5 C H 111 H 25 H 94 08/22/24 04:30 144/82 H 08/22/24 04:30 144/82 H Laboratory Results 08/22/24 08/22/24 08/22/24 Range/Units 14:52 14:36 12:04 WBC (4.8-10.8) K/ul RBC (4.70-6.10) M/uL Hgb (14.0-18.0) g/dl POC Hgb (14.0-18.0) g/dl Hct (42.0-52.0) % POC Hct (42-52) % MCV (80.0-100.0) fL MCH (25.0-34.0) pg MCHC (32.0-36.0) g/dL RDW Std Deviation (36.4-46.3) fL RDW Coeff of Eladio (11.5-14.5) % Plt Count (130-400) K/uL MPV (9.4-12.4) fL Immature Gran % (Auto) % Neut % (Auto) % Lymph % (Auto) % Winkler % (Auto) % Eos % (Auto) % Baso % (Auto) % Neut # (Auto) (1.40-6.50) K/uL Lymph # (Auto) (1.20-3.40) K/uL Winkler # (Auto) (0.11-0.59) K/uL Eos # (Auto) (0.00-0.50) K/uL Baso # (Auto) (0.00-0.20) K/uL Immature Gran # (Auto) (0.01-0.20) K/uL Absolute Nucleated RBC (0.00-0.12) K/uL Nucleated RBC % (auto) % Neutrophils % (Manual) % Lymphocytes % (Manual) % Monocytes % (Manual) % Eosinophils % (Manual) % Metamyelocytes % (Man) % Myelocytes % (Man) % Neutrophils # (Manual) (1.40-6.50) K/uL Total Absolute Neuts (1.4-6.5) K/uL Lymphocytes # (Manual) (1.2-3.4) K/uL Total Abs Lymphocytes (1.2-3.4) K/uL Monocytes # (Manual) (0.11-0.59) K/uL Eosinophils # (Manual) (0-0.50) K/uL Metamyelocytes # (Man) (0-0) K/uL Myelocytes # (Manual) (0-0) K/uL Large Granular Lymphs % # Lrg Granular Lymphs K/uL Blood Smear Review Toxic Vacuolation Polychromasia Anisocytosis Eosinophil Count, Calc (100-500) uL PT (9.0-12.0) Seconds INR (0.9-1.1) Specimen Type Sample Site POC pH (7.35-7.45) POC pCO2 (35-46) mmHg POC pO2 (80-95) mmHg POC HCO3 (19-24) wilian/L POC Total CO2 (24-31) mmol/L POC Base Excess (-9-1.8) wilian/L O2 Sat Pulse Oximetry ABG pH (Temp Correct) (7.35-7.45) ABG pCO2 (Temp Corrct (35-46) mmHg POC ABG pO2 at Pt Temp POC ABG O2 Sat (90-95) % Noah Test O2 Delivery Device Vent Mode POC FiO2 % End Tidal CO2 POC Sodium (135-144) mmol/L Sodium 148 H (136-145) mmol/L POC Potassium (3.3-5.0) mmol/L Potassium 3.5 (3.5-5.1) mmol/L Chloride 111 H (98-107) mmol/L Carbon Dioxide 26 (21-32) mmol/L Anion Gap 11 (3-11) BUN 42 H (6-23) mg/dl Creatinine 4.19 H (0.6-1.4) mg/dl Est Cr Clr Drug Dosing 20.0 ml/min eGFR 14.97 BUN/Creatinine Ratio 10.0 (10-20) Glucose 265 H (70-99(Fasting)) mg/dl POC Glucose (70-99) mg/dl POC Glucose (other) 264 H 252 H (70-99) mg/dl Lactate (0.4-2.0) mmol/L Calcium 7.4 L D (8.6-10.3) mg/dl Phosphorus (2.5-4.9) mg/dl Magnesium (1.7-2.4) mg/dl Total Bilirubin (0.2-1.0) mg/dl Direct Bilirubin (0-0.2) mg/dl AST (13-39) U/L ALT (7-52) U/L Alkaline Phosphatase (34-104) U/L Troponin I High Sens (0-20) pg/ml Total Protein (6.0-8.3) gm/dl Albumin (3.4-5.0) gm/dl Globulin (2.5-4.0) gm/dl Albumin/Globulin Ratio (0.9-2) Procalcitonin (0-0.5) ng/ml Random Cortisol mcg/dl Nasal Screen MRSA (PCR) (Negative) 08/22/24 08/22/24 08/22/24 Range/Units 11:59 07:36 06:53 WBC (4.8-10.8) K/ul RBC (4.70-6.10) M/uL Hgb (14.0-18.0) g/dl POC Hgb 9.9 L (14.0-18.0) g/dl Hct (42.0-52.0) % POC Hct 29 L (42-52) % MCV (80.0-100.0) fL MCH (25.0-34.0) pg MCHC (32.0-36.0) g/dL RDW Std Deviation (36.4-46.3) fL RDW Coeff of Eladio (11.5-14.5) % Plt Count (130-400) K/uL MPV (9.4-12.4) fL Immature Gran % (Auto) % Neut % (Auto) % Lymph % (Auto) % Winkler % (Auto) % Eos % (Auto) % Baso % (Auto) % Neut # (Auto) (1.40-6.50) K/uL Lymph # (Auto) (1.20-3.40) K/uL Winkler # (Auto) (0.11-0.59) K/uL Eos # (Auto) (0.00-0.50) K/uL Baso # (Auto) (0.00-0.20) K/uL Immature Gran # (Auto) (0.01-0.20) K/uL Absolute Nucleated RBC (0.00-0.12) K/uL Nucleated RBC % (auto) % Neutrophils % (Manual) % Lymphocytes % (Manual) % Monocytes % (Manual) % Eosinophils % (Manual) % Metamyelocytes % (Man) % Myelocytes % (Man) % Neutrophils # (Manual) (1.40-6.50) K/uL Total Absolute Neuts (1.4-6.5) K/uL Lymphocytes # (Manual) (1.2-3.4) K/uL Total Abs Lymphocytes (1.2-3.4) K/uL Monocytes # (Manual) (0.11-0.59) K/uL Eosinophils # (Manual) (0-0.50) K/uL Metamyelocytes # (Man) (0-0) K/uL Myelocytes # (Manual) (0-0) K/uL Large Granular Lymphs % # Lrg Granular Lymphs K/uL Blood Smear Review Toxic Vacuolation Polychromasia Anisocytosis Eosinophil Count, Calc (100-500) uL PT (9.0-12.0) Seconds INR (0.9-1.1) Specimen Type Arterial Sample Site Art Line POC pH 7.43 (7.35-7.45) POC pCO2 34 L (35-46) mmHg POC pO2 115 H (80-95) mmHg POC HCO3 22 (19-24) wilian/L POC Total CO2 23 L (24-31) mmol/L POC Base Excess -2.0 (-9-1.8) wilian/L O2 Sat Pulse Oximetry 100 ABG pH (Temp Correct) 7.408 (7.35-7.45) ABG pCO2 (Temp Corrct 36 (35-46) mmHg POC ABG pO2 at Pt Temp 124 POC ABG O2 Sat 99.0 H (90-95) % Noah Test NA O2 Delivery Device Ventilator Vent Mode AC POC FiO2 70 % End Tidal CO2 26 POC Sodium 150 H (135-144) mmol/L Sodium (136-145) mmol/L POC Potassium 4.4 (3.3-5.0) mmol/L Potassium (3.5-5.1) mmol/L Chloride (98-107) mmol/L Carbon Dioxide (21-32) mmol/L Anion Gap (3-11) BUN (6-23) mg/dl Creatinine (0.6-1.4) mg/dl Est Cr Clr Drug Dosing ml/min eGFR BUN/Creatinine Ratio (10-20) Glucose (70-99(Fasting)) mg/dl POC Glucose (70-99) mg/dl POC Glucose (other) (70-99) mg/dl Lactate 5.5 H* 8.7 H* (0.4-2.0) mmol/L Calcium (8.6-10.3) mg/dl Phosphorus (2.5-4.9) mg/dl Magnesium (1.7-2.4) mg/dl Total Bilirubin (0.2-1.0) mg/dl Direct Bilirubin (0-0.2) mg/dl AST (13-39) U/L ALT (7-52) U/L Alkaline Phosphatase (34-104) U/L Troponin I High Sens (0-20) pg/ml Total Protein (6.0-8.3) gm/dl Albumin (3.4-5.0) gm/dl Globulin (2.5-4.0) gm/dl Albumin/Globulin Ratio (0.9-2) Procalcitonin (0-0.5) ng/ml Random Cortisol mcg/dl Nasal Screen MRSA (PCR) (Negative) 08/22/24 08/21/24 08/21/24 Range/Units 04:35 23:37 23:29 WBC 20.18 H (4.8-10.8) K/ul RBC 3.40 L (4.70-6.10) M/uL Hgb 10.0 L (14.0-18.0) g/dl POC Hgb 9.9 L (14.0-18.0) g/dl Hct 31.7 L (42.0-52.0) % POC Hct 29 L (42-52) % MCV 93.2 D (80.0-100.0) fL MCH 29.4 (25.0-34.0) pg MCHC 31.5 L (32.0-36.0) g/dL RDW Std Deviation 55.1 H (36.4-46.3) fL RDW Coeff of Eladio 18.9 H (11.5-14.5) % Plt Count 429 H (130-400) K/uL MPV 10.0 (9.4-12.4) fL Immature Gran % (Auto) 9.4 % Neut % (Auto) 73.2 % Lymph % (Auto) 12.1 % Winkler % (Auto) 3.9 % Eos % (Auto) 0.8 % Baso % (Auto) 0.6 % Neut # (Auto) 14.77 H (1.40-6.50) K/uL Lymph # (Auto) 2.45 (1.20-3.40) K/uL Winkler # (Auto) 0.78 H (0.11-0.59) K/uL Eos # (Auto) 0.17 (0.00-0.50) K/uL Baso # (Auto) 0.12 (0.00-0.20) K/uL Immature Gran # (Auto) 1.89 H (0.01-0.20) K/uL Absolute Nucleated RBC 1.94 H (0.00-0.12) K/uL Nucleated RBC % (auto) 9.6 % Neutrophils % (Manual) % Lymphocytes % (Manual) % Monocytes % (Manual) % Eosinophils % (Manual) % Metamyelocytes % (Man) % Myelocytes % (Man) % Neutrophils # (Manual) (1.40-6.50) K/uL Total Absolute Neuts (1.4-6.5) K/uL Lymphocytes # (Manual) (1.2-3.4) K/uL Total Abs Lymphocytes (1.2-3.4) K/uL Monocytes # (Manual) (0.11-0.59) K/uL Eosinophils # (Manual) (0-0.50) K/uL Metamyelocytes # (Man) (0-0) K/uL Myelocytes # (Manual) (0-0) K/uL Large Granular Lymphs % # Lrg Granular Lymphs K/uL Blood Smear Review Toxic Vacuolation Polychromasia 1+ Anisocytosis Eosinophil Count, Calc (100-500) uL PT 15.0 H (9.0-12.0) Seconds INR 1.4 H (0.9-1.1) Specimen Type Arterial Sample Site Art Line POC pH 7.40 (7.35-7.45) POC pCO2 28 L (35-46) mmHg POC pO2 83 (80-95) mmHg POC HCO3 18 L (19-24) wilian/L POC Total CO2 18 L (24-31) mmol/L POC Base Excess -7.0 (-9-1.8) wilian/L O2 Sat Pulse Oximetry 98 ABG pH (Temp Correct) 7.402 (7.35-7.45) ABG pCO2 (Temp Corrct 28 L (35-46) mmHg POC ABG pO2 at Pt Temp 83 POC ABG O2 Sat 96.0 H (90-95) % Noah Test NA O2 Delivery Device Ventilator Vent Mode AC POC FiO2 100 % End Tidal CO2 22 POC Sodium 153 H (135-144) mmol/L Sodium 150 H (136-145) mmol/L POC Potassium 3.1 L (3.3-5.0) mmol/L Potassium 4.0 (3.5-5.1) mmol/L Chloride 111 H (98-107) mmol/L Carbon Dioxide 24 (21-32) mmol/L Anion Gap 15 H (3-11) BUN 36 H (6-23) mg/dl Creatinine 4.15 H (0.6-1.4) mg/dl Est Cr Clr Drug Dosing 18.3 ml/min eGFR 15.14 BUN/Creatinine Ratio 8.7 L (10-20) Glucose 176 H (70-99(Fasting)) mg/dl POC Glucose (70-99) mg/dl POC Glucose (other) 176 H 104 H (70-99) mg/dl Lactate (0.4-2.0) mmol/L Calcium 9.4 D (8.6-10.3) mg/dl Phosphorus (2.5-4.9) mg/dl Magnesium (1.7-2.4) mg/dl Total Bilirubin 2.9 H (0.2-1.0) mg/dl Direct Bilirubin 1.8 H (0-0.2) mg/dl AST 380 H (13-39) U/L ALT 87 H (7-52) U/L Alkaline Phosphatase 265 H (34-104) U/L Troponin I High Sens 213.8 H* (0-20) pg/ml Total Protein 6.2 (6.0-8.3) gm/dl Albumin 2.0 L (3.4-5.0) gm/dl Globulin (2.5-4.0) gm/dl Albumin/Globulin Ratio (0.9-2) Procalcitonin (0-0.5) ng/ml Random Cortisol mcg/dl Nasal Screen MRSA (PCR) (Negative) 08/21/24 08/21/24 08/21/24 Range/Units 21:27 19:58 19:15 WBC (4.8-10.8) K/ul RBC (4.70-6.10) M/uL Hgb (14.0-18.0) g/dl POC Hgb 9.5 L (14.0-18.0) g/dl Hct (42.0-52.0) % POC Hct 28 L (42-52) % MCV (80.0-100.0) fL MCH (25.0-34.0) pg MCHC (32.0-36.0) g/dL RDW Std Deviation (36.4-46.3) fL RDW Coeff of Eladio (11.5-14.5) % Plt Count (130-400) K/uL MPV (9.4-12.4) fL Immature Gran % (Auto) % Neut % (Auto) % Lymph % (Auto) % Winkler % (Auto) % Eos % (Auto) % Baso % (Auto) % Neut # (Auto) (1.40-6.50) K/uL Lymph # (Auto) (1.20-3.40) K/uL Winkler # (Auto) (0.11-0.59) K/uL Eos # (Auto) (0.00-0.50) K/uL Baso # (Auto) (0.00-0.20) K/uL Immature Gran # (Auto) (0.01-0.20) K/uL Absolute Nucleated RBC (0.00-0.12) K/uL Nucleated RBC % (auto) % Neutrophils % (Manual) % Lymphocytes % (Manual) % Monocytes % (Manual) % Eosinophils % (Manual) % Metamyelocytes % (Man) % Myelocytes % (Man) % Neutrophils # (Manual) (1.40-6.50) K/uL Total Absolute Neuts (1.4-6.5) K/uL Lymphocytes # (Manual) (1.2-3.4) K/uL Total Abs Lymphocytes (1.2-3.4) K/uL Monocytes # (Manual) (0.11-0.59) K/uL Eosinophils # (Manual) (0-0.50) K/uL Metamyelocytes # (Man) (0-0) K/uL Myelocytes # (Manual) (0-0) K/uL Large Granular Lymphs % # Lrg Granular Lymphs K/uL Blood Smear Review Toxic Vacuolation Polychromasia Anisocytosis Eosinophil Count, Calc (100-500) uL PT (9.0-12.0) Seconds INR (0.9-1.1) Specimen Type Arterial Sample Site Art Line POC pH 7.34 L (7.35-7.45) POC pCO2 34 L (35-46) mmHg POC pO2 84 (80-95) mmHg POC HCO3 18 L (19-24) wilian/L POC Total CO2 19 L (24-31) mmol/L POC Base Excess -7.0 (-9-1.8) wilian/L O2 Sat Pulse Oximetry 97 ABG pH (Temp Correct) 7.333 L (7.35-7.45) ABG pCO2 (Temp Corrct 35 (35-46) mmHg POC ABG pO2 at Pt Temp 85 POC ABG O2 Sat 96.0 H (90-95) % Noah Test NA O2 Delivery Device Ventilator Vent Mode AC POC FiO2 100 % End Tidal CO2 20 POC Sodium 156 H* (135-144) mmol/L Sodium (136-145) mmol/L POC Potassium 3.1 L (3.3-5.0) mmol/L Potassium (3.5-5.1) mmol/L Chloride (98-107) mmol/L Carbon Dioxide (21-32) mmol/L Anion Gap (3-11) BUN (6-23) mg/dl Creatinine (0.6-1.4) mg/dl Est Cr Clr Drug Dosing ml/min eGFR BUN/Creatinine Ratio (10-20) Glucose (70-99(Fasting)) mg/dl POC Glucose (70-99) mg/dl POC Glucose (other) 64 L* (70-99) mg/dl Lactate 6.1 H* (0.4-2.0) mmol/L Calcium (8.6-10.3) mg/dl Phosphorus (2.5-4.9) mg/dl Magnesium (1.7-2.4) mg/dl Total Bilirubin (0.2-1.0) mg/dl Direct Bilirubin (0-0.2) mg/dl AST (13-39) U/L ALT (7-52) U/L Alkaline Phosphatase (34-104) U/L Troponin I High Sens (0-20) pg/ml Total Protein (6.0-8.3) gm/dl Albumin (3.4-5.0) gm/dl Globulin (2.5-4.0) gm/dl Albumin/Globulin Ratio (0.9-2) Procalcitonin (0-0.5) ng/ml Random Cortisol mcg/dl Nasal Screen MRSA (PCR) (Negative) 08/21/24 08/21/24 08/21/24 Range/Units 18:13 18:03 18:00 WBC 23.23 H D (4.8-10.8) K/ul RBC 3.41 L (4.70-6.10) M/uL Hgb 10.0 L (14.0-18.0) g/dl POC Hgb (14.0-18.0) g/dl Hct 34.0 L (42.0-52.0) % POC Hct (42-52) % MCV 99.7 D (80.0-100.0) fL MCH 29.3 (25.0-34.0) pg MCHC 29.4 L (32.0-36.0) g/dL RDW Std Deviation 60.6 H (36.4-46.3) fL RDW Coeff of Eladio 18.6 H (11.5-14.5) % Plt Count 341 (130-400) K/uL MPV 9.6 (9.4-12.4) fL Immature Gran % (Auto) % Neut % (Auto) % Lymph % (Auto) % Winkler % (Auto) % Eos % (Auto) % Baso % (Auto) % Neut # (Auto) (1.40-6.50) K/uL Lymph # (Auto) (1.20-3.40) K/uL Winkler # (Auto) (0.11-0.59) K/uL Eos # (Auto) (0.00-0.50) K/uL Baso # (Auto) (0.00-0.20) K/uL Immature Gran # (Auto) (0.01-0.20) K/uL Absolute Nucleated RBC 1.24 H (0.00-0.12) K/uL Nucleated RBC % (auto) 5.3 % Neutrophils % (Manual) 32 % Lymphocytes % (Manual) 18 % Monocytes % (Manual) 4 % Eosinophils % (Manual) 7 % Metamyelocytes % (Man) 5 % Myelocytes % (Man) 3 % Neutrophils # (Manual) 7.43 H (1.40-6.50) K/uL Total Absolute Neuts 7.43 H (1.4-6.5) K/uL Lymphocytes # (Manual) 4.18 H (1.2-3.4) K/uL Total Abs Lymphocytes 11.38 H (1.2-3.4) K/uL Monocytes # (Manual) 0.93 H (0.11-0.59) K/uL Eosinophils # (Manual) 1.63 H (0-0.50) K/uL Metamyelocytes # (Man) 1.16 H (0-0) K/uL Myelocytes # (Manual) 0.70 H (0-0) K/uL Large Granular Lymphs 31 % # Lrg Granular Lymphs 7.20 K/uL Blood Smear Review Toxic Vacuolation 1+ Polychromasia 1+ Anisocytosis Present Eosinophil Count, Calc 1630 H (100-500) uL PT (9.0-12.0) Seconds INR (0.9-1.1) Specimen Type Sample Site POC pH (7.35-7.45) POC pCO2 (35-46) mmHg POC pO2 (80-95) mmHg POC HCO3 (19-24) wilian/L POC Total CO2 (24-31) mmol/L POC Base Excess (-9-1.8) wilian/L O2 Sat Pulse Oximetry ABG pH (Temp Correct) (7.35-7.45) ABG pCO2 (Temp Corrct (35-46) mmHg POC ABG pO2 at Pt Temp POC ABG O2 Sat (90-95) % Noah Test O2 Delivery Device Vent Mode POC FiO2 % End Tidal CO2 POC Sodium (135-144) mmol/L Sodium 151 H (136-145) mmol/L POC Potassium (3.3-5.0) mmol/L Potassium 4.0 (3.5-5.1) mmol/L Chloride 123 H (98-107) mmol/L Carbon Dioxide 17 L (21-32) mmol/L Anion Gap 11 (3-11) BUN 36 H (6-23) mg/dl Creatinine 4.16 H (0.6-1.4) mg/dl Est Cr Clr Drug Dosing 18.3 ml/min eGFR 15.10 BUN/Creatinine Ratio 8.7 L (10-20) Glucose 76 (70-99(Fasting)) mg/dl POC Glucose 74 (70-99) mg/dl POC Glucose (other) (70-99) mg/dl Lactate 7.6 H* (0.4-2.0) mmol/L Calcium 11.8 H (8.6-10.3) mg/dl Phosphorus 7.1 H D (2.5-4.9) mg/dl Magnesium 2.1 (1.7-2.4) mg/dl Total Bilirubin 2.4 H (0.2-1.0) mg/dl Direct Bilirubin (0-0.2) mg/dl AST 235 H (13-39) U/L ALT 77 H (7-52) U/L Alkaline Phosphatase 263 H (34-104) U/L Troponin I High Sens (0-20) pg/ml Total Protein 6.1 (6.0-8.3) gm/dl Albumin 2.1 L (3.4-5.0) gm/dl Globulin 4.0 (2.5-4.0) gm/dl Albumin/Globulin Ratio 0.5 L (0.9-2) Procalcitonin 33.90 H (0-0.5) ng/ml Random Cortisol 5.83 mcg/dl Nasal Screen MRSA (PCR) Negative (Negative) 08/21/24 Range/Units 16:27 WBC (4.8-10.8) K/ul RBC (4.70-6.10) M/uL Hgb (14.0-18.0) g/dl POC Hgb (14.0-18.0) g/dl Hct (42.0-52.0) % POC Hct (42-52) % MCV (80.0-100.0) fL MCH (25.0-34.0) pg MCHC (32.0-36.0) g/dL RDW Std Deviation (36.4-46.3) fL RDW Coeff of Eladio (11.5-14.5) % Plt Count (130-400) K/uL MPV (9.4-12.4) fL Immature Gran % (Auto) % Neut % (Auto) % Lymph % (Auto) % Winkler % (Auto) % Eos % (Auto) % Baso % (Auto) % Neut # (Auto) (1.40-6.50) K/uL Lymph # (Auto) (1.20-3.40) K/uL Winkler # (Auto) (0.11-0.59) K/uL Eos # (Auto) (0.00-0.50) K/uL Baso # (Auto) (0.00-0.20) K/uL Immature Gran # (Auto) (0.01-0.20) K/uL Absolute Nucleated RBC (0.00-0.12) K/uL Nucleated RBC % (auto) % Neutrophils % (Manual) % Lymphocytes % (Manual) % Monocytes % (Manual) % Eosinophils % (Manual) % Metamyelocytes % (Man) % Myelocytes % (Man) % Neutrophils # (Manual) (1.40-6.50) K/uL Total Absolute Neuts (1.4-6.5) K/uL Lymphocytes # (Manual) (1.2-3.4) K/uL Total Abs Lymphocytes (1.2-3.4) K/uL Monocytes # (Manual) (0.11-0.59) K/uL Eosinophils # (Manual) (0-0.50) K/uL Metamyelocytes # (Man) (0-0) K/uL Myelocytes # (Manual) (0-0) K/uL Large Granular Lymphs % # Lrg Granular Lymphs K/uL Blood Smear Review Toxic Vacuolation Polychromasia Anisocytosis Eosinophil Count, Calc (100-500) uL PT (9.0-12.0) Seconds INR (0.9-1.1) Specimen Type Sample Site POC pH (7.35-7.45) POC pCO2 (35-46) mmHg POC pO2 (80-95) mmHg POC HCO3 (19-24) wilian/L POC Total CO2 (24-31) mmol/L POC Base Excess (-9-1.8) wilian/L O2 Sat Pulse Oximetry ABG pH (Temp Correct) (7.35-7.45) ABG pCO2 (Temp Corrct (35-46) mmHg POC ABG pO2 at Pt Temp POC ABG O2 Sat (90-95) % Noah Test O2 Delivery Device Vent Mode POC FiO2 % End Tidal CO2 POC Sodium (135-144) mmol/L Sodium (136-145) mmol/L POC Potassium (3.3-5.0) mmol/L Potassium (3.5-5.1) mmol/L Chloride (98-107) mmol/L Carbon Dioxide (21-32) mmol/L Anion Gap (3-11) BUN (6-23) mg/dl Creatinine (0.6-1.4) mg/dl Est Cr Clr Drug Dosing ml/min eGFR BUN/Creatinine Ratio (10-20) Glucose (70-99(Fasting)) mg/dl POC Glucose 91 (70-99) mg/dl POC Glucose (other) (70-99) mg/dl Lactate (0.4-2.0) mmol/L Calcium (8.6-10.3) mg/dl Phosphorus (2.5-4.9) mg/dl Magnesium (1.7-2.4) mg/dl Total Bilirubin (0.2-1.0) mg/dl Direct Bilirubin (0-0.2) mg/dl AST (13-39) U/L ALT (7-52) U/L Alkaline Phosphatase (34-104) U/L Troponin I High Sens (0-20) pg/ml Total Protein (6.0-8.3) gm/dl Albumin (3.4-5.0) gm/dl Globulin (2.5-4.0) gm/dl Albumin/Globulin Ratio (0.9-2) Procalcitonin (0-0.5) ng/ml Random Cortisol mcg/dl Nasal Screen MRSA (PCR) (Negative) Medications Administered Current Inpatient Medications Aspirin (Aspirin 81 Mg Chew) 81 mg NG DAILY ANDREI Stop: 09/18/24 08:59 Last Admin: 08/22/24 08:14 Dose: 81 mg Atenolol (Atenolol 50 Mg Tablet) 100 mg NG DAILY ANDREI Stop: 09/14/24 08:59 Last Admin: 08/22/24 07:47 Dose: Not Given Atorvastatin Calcium (Atorvastatin 20 Mg Tab) 20 mg PO DAILY ANDREI Stop: 09/14/24 08:59 Bisacodyl (Bisacodyl 10 Mg Supp) 10 mg TX DAILY PRN PRN Reason: Constipation Stop: 09/13/24 23:09 Calamine/Phenol (Menthol-Zinc Oxide 360 Appln/120 Gm Tube) 1 appln EXT DAILY ANDREI Stop: 09/17/24 15:14 Last Admin: 08/22/24 08:16 Dose: 1 appln Cyanocobalamin (Cyanocobalamin (B-12) 500 Mcg Tablet) 500 mcg NG DAILY ANDREI Stop: 09/14/24 08:59 Last Admin: 08/22/24 09:26 Dose: 500 mcg Dextrose (Dextrose 50% 50 Ml Syringe) 25 - 50 ml IV UD PRN; Protocol PRN Reason: Hypoglycemia Protocol Stop: 09/13/24 23:09 Last Admin: 08/21/24 21:58 Dose: 50 ml Enteral Nutritional Formula (Novasource Renal 2.0 Yovani 1000ml Bag) 1,000 ml OG .See Protocol ANDREI; Protocol Stop: 09/21/24 10:57 Last Admin: 08/22/24 13:18 Dose: 1,000 ml Fentanyl Citrate (Fentanyl Bolus From Bag) 50 mcg IV Q60M PRN PRN Reason: Pain or Agitation Stop: 09/04/24 19:34 Ferrous Sulfate (Ferrous Sulfate 325 Mg/7.4 Ml Udp) 325 mg NG DAILY ANDREI Stop: 09/18/24 08:59 Last Admin: 08/22/24 09:28 Dose: 325 mg Glucagon (Glucagon For Inj 1 Mg Vial) 1 mg SQ UD PRN; Protocol PRN Reason: Hypoglycemia Protocol Stop: 09/13/24 23:09 Glucose (Glucose 40% Gel 15 Gm Tube) 15 - 30 gm PO UD PRN; Protocol PRN Reason: Hypoglycemia Protocol Stop: 09/13/24 23:09 Glucose (Glucose 10 Tab/Tube) 4 - 8 tab PO UD PRN; Protocol PRN Reason: Hypoglycemia Protocol Stop: 09/13/24 23:09 Heparin Sodium (Beef Lung) (Heparin 10 Unit/Ml 5 Ml Flush) 5 ml FLUSH PRN PRN PRN Reason: Flush Stop: 09/14/24 03:11 Last Admin: 08/18/24 10:08 Dose: 5 ml Heparin Sodium (Porcine) (Heparin Sod 5,000 Unit/0.5 Ml Vial) 5,000 units SQ Q8H ANDREI Stop: 09/14/24 00:00 Last Admin: 08/22/24 08:14 Dose: 5,000 units Thiamine HCl 100 mg/ Syringe 10 mls @ 2 mls/min IV QAM ANDREI Stop: 09/17/24 15:44 Last Admin: 08/22/24 08:05 Dose: 2 mls/min Meropenem 1,000 mg/ Syringe 20 mls @ 4 mls/min IV Q12H ANDREI; Protocol Stop: 08/31/24 13:59 Last Admin: 08/22/24 14:40 Dose: 4 mls/min Acetaminophen (Ofirmev) 1,000 mg in 100 mls @ 400 mls/hr IV Q8H PRN PRN Reason: Pain or Fever Stop: 08/24/24 13:32 Last Infusion: 08/22/24 02:00 Dose: Infused Vasopressin 20 units/ Sodium (Chloride) 101 mls @ 12.12 mls/hr IV .Q8H20M ANDREI Stop: 09/20/24 18:59 Last Admin: 08/22/24 10:06 Dose: 0.04 unit/min, 12.1 mls/hr Epinephrine HCl () 4 mg in 254 mls @ 92.812 mls/hr IV .Q2H45M ANDREI; Protocol Stop: 09/20/24 18:59 Last Titration: 08/22/24 07:09 Dose: 0 mcg/kg/min, 0 mls/hr Fentanyl Citrate (Fentanyl Citrate) 2,500 mcg in 250 mls @ 7.5 mls/hr IV .[id number] ANDREI; Protocol Stop: 09/04/24 19:44 Last Titration: 08/22/24 14:56 Dose: 75 mcg/hr, 7.5 mls/hr Norepinephrine Bitartrate (Levophed/D5w) 4 mg in 250 mls @ 19.575 mls/hr IV .[id number] ANDREI; Protocol Stop: 09/20/24 19:59 Last Titration: 08/22/24 14:48 Dose: 0.06 mcg/kg/min, 19.6 mls/hr Lactated Ringer's (Lr) 1,000 mls @ 100 mls/hr IV .Q10H ANDREI Stop: 08/23/24 06:14 Last Admin: 08/22/24 06:16 Dose: 100 mls/hr Pantoprazole Sodium (Protonix) 40 mg in 10 mls @ 5 mls/min IV DAILY ANDREI Stop: 09/21/24 08:59 Last Admin: 08/22/24 09:27 Dose: 5 mls/min Hydrocortisone Sodium (Succinate 50 mg/ Syringe) 1 mls @ 4 mls/min IV Q6H ANDREI Stop: 08/24/24 06:01 Last Admin: 08/22/24 12:01 Dose: 4 mls/min Hydrocortisone Sodium (Succinate 50 mg/ Syringe) 1 mls @ 4 mls/min IV Q12H [facility] Stop: 08/26/24 06:01 Hydrocortisone Sodium (Succinate 50 mg/ Syringe) 1 mls @ 4 mls/min IV Q24H [facility] Stop: 08/27/24 18:01 Insulin Human Regular 250 (units/ Sodium Chloride) 250 mls @ 3.4 mls/hr IV .Q24H [facility]; Protocol Stop: 09/21/24 13:44 Last Titration: 08/22/24 15:48 Dose: 3.4 units/hr, 3.4 mls/hr Insulin Aspart (Insulin Aspart Per Unit Charge) 0 units SC ACHS [facility] Stop: 09/21/24 16:29 Ipratropium Benld (Ipratropium Benld Neb Soln 0.02% 0.5mg/2.5ml Vial) 0.5 mg INH QIDR PRN PRN Reason: Shortness Of Breath Or Wheezing Stop: 09/21/24 10:08 Lactobacillus Acidophilus (Advanced Probiotic 625 Mg Capsule) 1,250 mg PO DAILY [facility] Stop: 09/14/24 08:59 Last Admin: 08/22/24 09:26 Dose: 1,250 mg Lamotrigine (Lamotrigine 100 Mg Tab) 100 mg PO BID [facility]; Protocol Stop: 09/14/24 08:59 Last Admin: 08/22/24 09:26 Dose: 100 mg Levalbuterol HCl (Levalbuterol 1.25 Mg/3 Ml Neb) 1.25 mg NEB QIDR PRN PRN Reason: Shortness Of Breath Or Wheezing Stop: 09/20/24 14:59 Miscellaneous (Carbohydrates For Hypoglycemia ) 15 - 30 gm PO UD PRN PRN Reason: Hypoglycemia Protocol Stop: 09/13/24 23:09 Multivitamins/Minerals (Multi Vit W/Minerals Liquid 15 Ml Udc) 15 ml NG QAM [facility] Stop: 09/18/24 08:59 Last Admin: 08/20/24 08:12 Dose: 15 ml Nitroglycerin (Nitroglycerin Sl 0.4 Mg/Tab Tab) 0.4 mg SL Q5M PRN PRN Reason: Chest Pain Stop: 09/13/24 23:09 Sterile Water (Tube Feeding Water Flush) 200 ml GT Q4H ANDREI Stop: 09/20/24 20:59 Last Admin: 08/22/24 12:02 Dose: 200 ml
[2024-08-22] MEDS: INSULIN ASPART PER UNIT CHARGE SC SCH ×2 (17:08→17:12)
[2024-08-23 04:56] LABS: Creatinine Clr Calc Pharmacy 19.3 ml/min
[2024-08-23 05:03] LABS: INR 1.4 (0.9-1.1); Prothrombin Time 14.7 Seconds (9.0-12.0)
[2024-08-23 07:53] LABS: Basophils # (auto) 0.04 K/uL (0.00-0.20); Basophils % (auto) 0.3 %; Eosinophils # (auto) 0.01 K/uL (0.00-0.50); Eosinophils % (auto) 0.1 %; Hematocrit (blood only) 27.5 % (42.0-52.0); Hemoglobin 8.8 g/dl (14.0-18.0); Immature Granulocytes # (auto) 0.59 K/uL (0.01-0.20); Immature Granulocytes % (auto) 4.1 %; Lymphocytes # (auto) 1.68 K/uL (1.20-3.40); Lymphocytes % (auto) 11.6 %; Mean Corpuscular Hemoglobin 29.9 pg (25.0-34.0); Mean Corpuscular Volume 93.5 fL (80.0-100.0); Mean Platelet Volume 9.7 fL (9.4-12.4); Monocytes # (auto) 0.53 K/uL (0.11-0.59); Monocytes % (auto) 3.7 %; Neutrophils # (auto) 11.67 K/uL (1.40-6.50); Neutrophils % (auto) 80.2 %; Nucleated RBC # (auto) 0.31 K/uL (0.00-0.12); Nucleated RBC % (auto) 2.1 %; Platelet Count 274 K/uL (130-400); RDW Coefficient of Variation 19.3 % (11.5-14.5); RDW Standard Deviation 55.6 fL (36.4-46.3); Red Blood Count 2.94 M/uL (4.70-6.10); White Blood Count 14.52 K/ul (4.8-10.8)
--- NOTE | 2024-08-23 08:07 | Critical Care Progress Note ---
Date of Service August 23, 2024 Assessment & Plan (1) Hypercalcemia: (2) Transaminitis: (3) Encephalopathy: (4) Cellulitis of left lower extremity: (5) Diabetic foot ulcer: (6) JUANA (acute kidney injury): (7) Cardiac arrest: (8) Shock circulatory: Plan Reason Critically Ill: 63-year-old male admitted to the hospital for lower extremity cellulitis as well as osteomyelitis for right foot ulcer Past medical history: Seizures, dyslipidemia, diabetes, hypertension, history of lung cancer Neuro - [facility] ICU: Unable to assess -- Encephalopathy Multifactorial Hypercalcemia with calcium of 12.4, corrected calcium around 14 --> resolved Ammonia 64 Elevated TSH with normal free T4 CT head negative 08/19/2024 Brain MRI 08/16/2024 negative Cardiac - 2D echo 08/21/2024: EF greater than 70%, mild concentric LVH, borderline RV enlargement, no significant valvular disease, no pericardial effusion -- Cardiac arrest with shock Patient had bradycardia and then asystole on the telemetry strip Continue with vasopressor support to keep MAP greater than 65 --Anasarca with severe protein-calorie malnutrition Albumin 2 Respiratory - -- VDRF For airway protection from cardiac arrest Continue with ventilatory support Keep RASS -1 Daily sedation holidays and SBT's --Right lower lobe aspiration pneumonia -- Chronic elevation of the right hemidiaphragm GI - --Transaminitis Etiology is likely coming from medication/antibiotic initially followed by cardiac arrest Used to be on vancomycin as an outpatient, also got cefepime while he was in the hospital as well as Depakote Trending down Continue to monitor Hepatitis panel - negative on 08/19/2024 RENAL/LYTES - -- JUANA on CKD Avoid nephrotoxic medication Monitor BUNs/creatinine --Hypernatremia with hyperchloremia Getting free water flushes through the OGT -- Status post hypercalcemia Appreciated after coming to the hospital PTH less than 7, goes along with secondary hypercalcemia Patient did get 3 doses calcitonin as well as 1 dose of zalendronic acid Etiology for hypercalcemia is unclear. Patient was eucalcemic when he came in and actually hypocalcemic when he was admitted at [facility] last month. He did not get any fluids to cause hypercalcemia Querry MGUS, MDS versus multiple myeloma ENDO - -- Diabetes type 2 ICU hypoglycemia protocol HEME - -- Normocytic anemia Monitor H&H ID - -- Osteomyelitis On antibiotics, infectious disease on board Procalcitonin> 100 on presentation, downtrending --Prophylaxis VTE: Heparin GI: Pantoprazole Lines: Right radial, right arm PICC Diet: N.p.o. Plan: In/out: + 3.7 L, urine output 10 and 10 mL, +10 L since coming to the hospital AB.41/37/87 on PEEP of 5, 40% Sodium is improving, patient is getting free water flushes which we will continue with His calcium is now trending down, he already got 3 g of calcium IV as well as p.o. Potassium and magnesium is also being replaced. Repeat BMP later today to see if more calcium supplement needs to be given to the patient. No acute indication for dialysis right now but if there is no urine output that that is a possibility There is decrease in patient's hemoglobin. Seems to be dilutional as there is no clear source of infection. Patient has having loose bowel movements now. He does have history of C. difficile, C. difficile has been ordered for him Will put him on contact isolation till we get the results Overall prognosis is guarded After discussion with the family, decision was made to not to escalate the care continue with vasopressor support but no CPR in future if need be I have personally spent 48 minutes of critical care time in the direct management of this patient. This is a life/limb threatening event. This includes time spent evaluating patient, direct bedside care, chart review, placing orders, interpretation of diagnostic studies, discussion with consultants, patient, and family members, as well as other required patient management activities. This time is exclusive of all separately billable procedures, and teaching time and separate from and in addition to any other critical care service time. Admission and Anticipated Discharge Date Admission Date: August 14, 2024 Subjective Patient seen and examined at bedside. No acute distress, no adverse events overnight He was breathing over the vent. He was on 50 of fentanyl at the time of examination Saturating 95 to 95% on PEEP of 5, 40% Review of Systems 2 Review of Systems: Unobtainable due to endotracheal tube Physical Exam 2 Physical Exam: Constitutional: No respiratory distress HEENT: PERRLA, sluggish response Respiratory system: Decreased air entry bilaterally, no wheeze, no rhonchi, positive crackles bilateral lower lobe CVS: S1-S2 positive, no murmurs or gallops Abdomen: Soft, nontender, nondistended, positive bowel sounds x4 Extremities: +2 pulses bilaterally radialis/ dorsalis pedis, no cyanosis, +2 pitting edema bilateral lower extremity, right first and second toe amputation Neuro: Breathing over the vent, opening eyes to noise, does not follow any commands Psych: Unable to assess G/U: Positive Sarmiento Skin: no rashes, warm and dry Lymphatic: no cervical or axillary lymphadenopathy Results & Data Results & Data Vital Signs (Past 12 Hours) Vital Signs Temp Pulse Resp BP Pulse Ox FiO2 08/23/24 07:39 88 29 H 100 50 08/23/24 05:33 37.4 C 85 24 100 08/23/24 05:15 37.5 C 86 24 99 08/23/24 05:00 37.4 C 87 24 100 08/23/24 04:33 37.5 C 86 22 100 08/23/24 04:30 103/64 08/23/24 04:30 103/64 08/23/24 04:27 37.4 C 87 24 99 08/23/24 04:03 37.4 C 88 23 100 08/23/24 04:00 108/59 L 08/23/24 04:00 108/59 L 08/23/24 04:00 108/59 L 08/23/24 04:00 50 08/23/24 03:42 37.5 C 88 24 99 08/23/24 03:30 110/67 08/23/24 03:30 110/67 08/23/24 03:30 110/67 08/23/24 03:30 37.5 C 88 24 99 08/23/24 03:00 37.5 C 90 24 99 08/23/24 03:00 113/64 08/23/24 02:58 88 26 H 97 50 08/23/24 02:31 110/54 L 08/23/24 02:30 37.6 C H 91 H 24 98 08/23/24 01:33 37.9 C H 89 24 99 08/23/24 01:30 120/74 08/23/24 01:24 37.9 C H 89 22 99 08/23/24 01:00 38.1 C H 87 24 99 08/23/24 00:42 38.1 C H 87 22 98 08/23/24 00:30 131/73 08/23/24 00:27 38.2 C H 87 24 98 08/23/24 00:24 38.2 C H 86 23 97 08/23/24 00:00 86 08/23/24 00:00 141/95 H 08/23/24 00:00 50 08/22/24 23:54 38.3 C H 86 23 97 08/22/24 23:33 38.3 C H 86 23 96 08/22/24 23:30 140/80 08/22/24 23:30 140/80 08/22/24 23:30 87 29 H 97 50 08/22/24 23:18 38.3 C H 88 23 98 08/22/24 23:00 138/84 08/22/24 23:00 138/84 08/22/24 22:57 38.4 C H 87 22 96 08/22/24 22:33 38.4 C H 87 22 98 08/22/24 22:30 136/77 08/22/24 22:30 136/77 08/22/24 22:21 38.4 C H 87 22 97 08/22/24 22:06 38.3 C H 87 22 97 08/22/24 22:00 128/72 08/22/24 22:00 128/72 08/22/24 21:54 38.3 C H 87 23 97 08/22/24 21:33 38.3 C H 87 24 98 08/22/24 21:30 135/78 08/22/24 21:21 38.3 C H 87 24 96 08/22/24 21:06 38.3 C H 91 H 25 H 97 08/22/24 21:00 129/76 08/22/24 21:00 129/76 08/22/24 20:30 128/77 08/22/24 20:30 128/77 08/22/24 20:21 91 H 24 97 50 Laboratory Results 08/23/24 07:29 Coding Level of Care Code 94649 CRITICAL CARE 1ST 30-74M Diagnoses Hypercalcemia E83.52 Transaminitis R74.01 Encephalopathy G93.40 Cellulitis of left lower extremity L03.116 Diabetic foot ulcer E11.621; L97.412 Diabetes mellitus type: type 2 Diabetic foot ulcer location: midfoot Laterality: right Non-pressure ulcer stage: with fat layer exposed JUANA (acute kidney injury) N17.9 Cardiac arrest I46.9 Shock circulatory R57.9 (5) Diabetic foot ulcer Diabetes mellitus type: type 2 Diabetic foot ulcer location: midfoot L aterality: right Non-pressure ulcer stage: with fat layer exposed Qualified Code(s): E11.621 - Type 2 diabetes mellitus with foot ulcer; L97.412 - Non- pressure chronic ulcer of right heel and midfoot with fat layer exposed
[2024-08-23 08:19] LABS: BUN Creatinine Ratio 11.9 (10-20); Calcium 4.9 mg/dl (8.6-10.3); Creatinine Clr Calc Pharmacy 19.6 ml/min; Magnesium 1.5 mg/dl (1.7-2.4); Phosphorus 2.7 mg/dl (2.5-4.9); Potassium 3.2 mmol/L (3.5-5.1)
[2024-08-23 08:20] LABS: Polychromasia 1+
[2024-08-23] MEDS: CALCIUM GLUCONATE 1,000 MG/60 ML BAG IV STA (08:34)
--- NOTE | 2024-08-23 08:38 | Nephrology Progress Note ---
Date of Service August 23, 2024 Assessment & Plan (1) Hypocalcemia: Plan: CRITICAL hypocalcemia 72 hrs after bisphosphonate for severe hypercalcemia, cause for ca elevation unclear corrected Ca 13.8, Ca 12.8 on 08/20; Ca 12.4 on 08/21; Ca 9.4 on 08/22, 4.9 on 08/23 25 OH D 26; phos 2.7 PTH 7 on 08/19 hypercalcemia RESOLVED after low dose bisphosphonate; hopefully his MS will improve with lower calcium; notably at [facility] admission 08/02-08/11 he was consistently hypophosphatemic and hypocalcemic hypocalcemic (but not critically so) in [facility] >>>>gave 3 gm IV ca gluconate stat -started ca carbonate suspension 2.5 gm tid NG -repeat bmp stat ordered for 10 AM and routine 1600 -also ordered mag 1 gm IV x 3 and K elixir 40 mEq x 1 NG -await PTHrp <<not likely to be helpful; done for completeness Care coordinated multiple times w/ RN, lab, pharmacy; care coordinated w/ Amaury Camacho via [employer] re critical hypocalcemia, electrolyte repletion strategies, JUANA status; we are in agreement. (2) JUANA (acute kidney injury): Plan: slightly worse stage 3 oliguric JUANA w/ multiple phases/hits >> admitted from [facility] w/ sepsis versus AIN also on ddx. was slowly improving creatinine and > 2L UOP daily (in setting of elevated Ca) hen 08/21 cardiac arrest and in wake of this (and normal/low Ca) oliguria Admitted [facility] 08/02-08/11 >> Date Creat Ca C02 consistently 18-19 on these dates; phos in high ones 08/06-08/10 08/08 0.8 7.5 08/09 1.0 7.5 08/10 1.6 6.8 08/11 2.8 6.9 Also during [facility] admission had 08/07 drug reaction to ANCEF w/ rash and F > rounding team thought this might be drug fever. d/c to [facility] 08/11 where he continued to have F, dyspnea, ongoing redness/wound concerns and had at least one dose of rocephin [facility] could be Ischemic or toxic in the setting of Sepsis/vanco. acute interstitial nephritis is also on differential; reluctant to give steroids in setting of therapy for OM and concerns for aspiration PNA; marked eosinophilia (total eos 3X ULN) doubt an abrupt MGUS; could consider GN but he'd need biopsy to diagnose; not obstructed Admitting creatinine on 08/13 4.5, which was peak value On 08/21 he had a cardiac arrest > became oliguric w/ 125 mL UOP for 12 h ON and 310 total for 08/22 and again 125 mL UOP ON 1.8 gm proteinuria >>>not overloaded yet but 11 L + on the admission and 6.3L+ past 48 hr >>>oliguria now second day >>>slightly worse JUANA after cardiac arrest >>critical hypocalcemia; also hypokalemia, hypomagnesemia >pressors as needed to keep MAP > 65 >> off since 0608/23 as is IVF >if uop not improving may need to consider diuretic challenge v. dialysis; family brought it up on their own > did d/w Dr Camacho who will discuss further w/ family > would start w/ temp cath if needed given fevers >agree with [facility] 200 mL q8h >>mutliple calls out to lab to f/u on urine eos; marked eosinophilia on periph smear; need 3 negative urine eo specimens before we call it negative no major issues with fluid overload and/or lytes except Ca I and O charting. Daily renal panel and CBC. maintain good hemodynamics. Hold metformin, Jardiance, Lisinopril. No NSAIDS, no contrast agents (3) Sepsis: Plan: Source is diabetic Ulcer/OM with recent complications now +/- aspiration w/ TF versus other? >>he did have C glabrata >100K on urine cx at admission and had thrush at [facility] > ordered fungal blood cx; smear negative >LP deferred for now while pending MS johnnyal (4) Encephalopathy chronic: Plan: chronic, eg, multiple days; since I started service on 08/20 >> withdraws to painful stim only one month ago this pt was working/ living independently confused/ sluggish but awake on 08/13 arrival > knew name and that was in hospital; had been sent d/t F, AMS by 08/16 neuro c/s for encephalopathy > difficult to arouse at that time but arouseable, would say name since then 08/20 my arrival and per RN report from 08/19, withdraws to painful stim only >> ?multifactorial from hypercalcemia plus other? intubated evening 08/21 (5) Hypercalcemia: Plan: RESOLVED after low dose bisphosphonate; hopefully his MS will improve with lower calcium MONITOR for hypocalcemia, which he had in [facility] corrected Ca 13.8, Ca 12.8 on 08/20; Ca 12.4 on 08/21; Ca 9.4 on 08/22 25 OH D 26; phos 3.9 PTH 7 on 08/19 calcitonin IM 400 units q 12h x 2 days - started 08/20 >>stopped calcitonin lower dose zoledronic acid > 2 mg IV (reduced dose run slowly over 60 min) given 08/20 no obvious meds causing this, at least not this admission; notably at [facility] admission 08/02-08/11 he was consistently hypophosphatemic and hypocalcemic hold IVF for now >>await PTHrp <<not likely to be helpful; done for completeness >>pls check phos, mag, ca daily Plan I spent a total of 70 minutes coordinating, documenting, and providing care for this patient excluding time spent in the performance of separately billed services. This included personally reviewing all current laboratories and imaging studies, medication reconciliation, outpatient chart review, and discussion with other physicians, with nursing, and as applicable with the patient and family. Admission and Anticipated Discharge Date Admission Date: August 14, 2024 Subjective fevers continue 38.4; off pressors since 0600; started on insulin gtt; remains intubated; 124mL UOP ON; 3.9 L + yesterday; [facility] increased freq to 200 mL q4h Review of Systems 2 Review of Systems: All systems reviewed & are unremarkable except as noted in Subjective Physical Exam 2 Constitutional: well developed (intubated), well nourished and + altered mental status; no acute distress ENMT: Ears: no external ear abnormality Nose: no external nose abnormality Mouth: + dry oral mucous membranes Neck: no nuchal rigidity Respiratory: normal respiratory effort and + tachypneic; no respiratory distress Auscultation: + diminished lung sounds and + rhonchi Cardiovascular: Rate/Rhythm: regular rate and regular rhythm Extremities: + edema (1+ dependent) Gastrointestinal (Abdomen): Inspection/Auscultation: + abdomen distended and normal bowel sounds Percussion/Palpation: + abdomen tender (diffusely TTP moderate) and abdomen soft Skin: no rashes, warm and dry Results & Data Vital Signs (Past 12 Hours) Vital Signs Temp Pulse Resp BP Pulse Ox FiO2 08/23/24 07:39 88 29 H 100 50 08/23/24 05:33 37.4 C 85 24 100 08/23/24 05:15 37.5 C 86 24 99 08/23/24 05:00 37.4 C 87 24 100 08/23/24 04:33 37.5 C 86 22 100 08/23/24 04:30 103/64 08/23/24 04:30 103/64 08/23/24 04:27 37.4 C 87 24 99 08/23/24 04:03 37.4 C 88 23 100 08/23/24 04:00 108/59 L 08/23/24 04:00 108/59 L 08/23/24 04:00 108/59 L 08/23/24 04:00 50 08/23/24 03:42 37.5 C 88 24 99 08/23/24 03:30 110/67 08/23/24 03:30 110/67 08/23/24 03:30 110/67 08/23/24 03:30 37.5 C 88 24 99 08/23/24 03:00 37.5 C 90 24 99 08/23/24 03:00 113/64 08/23/24 02:58 88 26 H 97 50 08/23/24 02:31 110/54 L 08/23/24 02:30 37.6 C H 91 H 24 98 08/23/24 01:33 37.9 C H 89 24 99 08/23/24 01:30 120/74 08/23/24 01:24 37.9 C H 89 22 99 08/23/24 01:00 38.1 C H 87 24 99 08/23/24 00:42 38.1 C H 87 22 98 08/23/24 00:30 131/73 08/23/24 00:27 38.2 C H 87 24 98 08/23/24 00:24 38.2 C H 86 23 97 08/23/24 00:00 86 08/23/24 00:00 141/95 H 08/23/24 00:00 50 08/22/24 23:54 38.3 C H 86 23 97 08/22/24 23:33 38.3 C H 86 23 96 08/22/24 23:30 140/80 08/22/24 23:30 140/80 08/22/24 23:30 87 29 H 97 50 08/22/24 23:18 38.3 C H 88 23 98 08/22/24 23:00 138/84 08/22/24 23:00 138/84 08/22/24 22:57 38.4 C H 87 22 96 08/22/24 22:33 38.4 C H 87 22 98 08/22/24 22:30 136/77 08/22/24 22:30 136/77 08/22/24 22:21 38.4 C H 87 22 97 08/22/24 22:06 38.3 C H 87 22 97 08/22/24 22:00 128/72 08/22/24 22:00 128/72 08/22/24 21:54 38.3 C H 87 23 97 08/22/24 21:33 38.3 C H 87 24 98 08/22/24 21:30 135/78 08/22/24 21:21 38.3 C H 87 24 96 08/22/24 21:06 38.3 C H 91 H 25 H 97 08/22/24 21:00 129/76 08/22/24 21:00 129/76 Laboratory Results 08/23/24 07:29 08/23/24 07:29 Ca 4.9 mag 1.5 phos 2.7 Diagnostic Findings CXR today no worse or severe OL
[2024-08-23] MEDS: POTASSIUM CHLORIDE 20 MEQ/15 ML UDC NG ONE ×2 (08:44→18:01)
[2024-08-23] MEDS: MAGNESIUM SULFATE / D5W 1 GM/100 ML BAG IV SCH (08:45)
[2024-08-23] MEDS: CALCIUM GLUCONATE 1,000 MG/60 ML BAG IV SCH ×4 (08:54→18:02)
[2024-08-23] MEDS: CALCIUM CARBONATE 1,250 MG/5 ML UDC NG SCH (09:06)
[2024-08-23 10:41] LABS: iSTAT Art Bld Gas pCO2 Correct 37 mmHg (35-46); iSTAT Art Bld Gas pH Corrected 7.402 (7.35-7.45); iSTAT Arterial Blood Gas HCO3 23 meg/L (19-24); iSTAT Arterial Blood Gas pCO2 37 mmHg (35-46); iSTAT Arterial Blood Gas pH 7.41 (7.35-7.45); iSTAT Arterial Blood Gas pO2 87 mmHg (80-95); iSTAT Arterial Blood Gas pO2 C 89; iSTAT Carbon Dioxide 24 mmol/L (24-31); iSTAT FiO2 40 %; iSTAT Hematocrit 26 % (42-52); iSTAT Hemoglobin 8.8 g/dl (14.0-18.0); iSTAT Potassium 3.6 mmol/L (3.3-5.0); iSTAT Sample Type Arterial; iSTAT Site Art Line; iSTAT Sodium 147 mmol/L (135-144); iSTAT SpO2 99
[2024-08-23 10:44] LABS: Albumin Level 1.8 gm/dl (3.4-5.0); Bilirubin Direct 2.2 mg/dl (0-0.2); Bilirubin,Total 3.3 mg/dl (0.2-1.0); Total Protein 5.7 gm/dl (6.0-8.3)
[2024-08-23 11:15] LABS: BUN Creatinine Ratio 12.5 (10-20); Calcium 5.6 mg/dl (8.6-10.3); Creatinine Clr Calc Pharmacy 19.8 ml/min; Potassium 3.5 mmol/L (3.5-5.1)
--- NOTE | 2024-08-23 11:29 | Communication Note ---
Date of Service: August 23, 2024 late AM repeat Ca 5.9 -cont NG supplements -ordered another 3 gm Ca gluconate IV -repeat bmp stat 1330 ordered -RN to TText me w/ results 1330
--- NOTE | 2024-08-23 12:40 | Hospitalist Progress Note ---
Date of Service August 23, 2024 Assessment & Plan (1) Sepsis: Plan: Per previous hospitalist w/ addendum 63-yo M w/ type 2 diabetes, diabetic ulcer of right midfoot, dyslipidemia, hypophosphatemia, hypertension, history of C. difficile colitis, oral thrush, cellulitis of right leg, abscess of right foot, absent seizures, history of lung cancer, was sent in by [facility] rehab because of confusion and fevers. Patient was in [facility] from 08/02/2024 to 08/11/2024. He was admitted to the [facility] for right foot swelling and redness and fevers. And right foot x-ray showed healed fracture through the midshaft of second metatarsal bone with calcified bridging callus. Pes planus. He was admitted for right foot infection. MRI of the foot was negative for osteomyelitis and showed cellulitis and possible abscess. Status post I&D by podiatry at bedside on August 03 with a deep purulence obtained and sent for culture. Status post I&D with podiatry for sepsis on August 06 and probe to bone very favorable and no clear abscess as suggested by CT scan. During hospital stay he was also completed Tamiflu for influenza. ID suggested Ancef until September 17 and to treat as osteomyelitis for MSSA on wound cultures with 6 weeks of IV antibiotics. On August 07 patient had rash thought to be from Ancef. Rash was worsening after second dose of Ancef and patient was having fevers that thought to be lined up from Ancef doses and was thought possible drug fever. And ID recommended IV Vanco via PICC line. Vancomycin dosing goal AUC 400-600 Mg/liter/hour. And tanesha alberts was discharged to [facility] on 08/11/2024. At [facility] patient was still having fevers and shortness of breath and erythema around his wound ,does not appear to be receding thought to be spreading. [facility] made ID aware. As per the med rec from the [facility] seems patient had Rocephin. And was sent to our ER today because of fever and altered mental status. Patient can tell his name. Knows that he is in the hospital. Could tell his date of . But could not tell current dates. Denies any cough. Denies headache. Denies chest pain. Denies shortness of breath. Denies belly pain. Status post Sarmiento in the ER. Patient seems poor historian at this time. No sacral ulcer seen. 08/21/[address] Canchola - Code Blue Patient noted to be bradycardic and pale while getting oral care today. Patient was noted to have heart rate in 50-40s and became tachypneic. Prior to the episode, tube feeds were held for oral care per RN. Initially code purple was called and later changed to CODE BLUE and ACLS protocol was performed. Patient required CPR and needed intubation for respiratory support. IV epinephrine was administered per protocol. Chest x-ray, ABG, blood work ordered post intubation. Patient was will be transferred to ICU for further management. Critical care consulted. Updated patient's family over the phone. Sepsis Bilateral lower extremity cellulitis Right foot diabetic ulcer Recently on [facility] was placed on IV Vanco for 6 weeks until September 17 to treat his osteomyelitis though MRI was negative and abscess was I&D by podiatry at [facility] --Right Foot X ray: No definite radiographic evidence of osteomyelitis as described. --Venous Doppler:No evidence of deep venous thrombus within the bilateral lower extremities. --Arterial Doppler:Negative right lower extremity arterial evaluation. No occlusion or significant hemodynamic stenosis with multiphasic waveforms throughout. --CT ABD:No bowel obstruction. Severe hepatic steatosis. Hepatomegaly. Anasarca. Small amount of ascites within the pelvis. -- Blood cultures negative to date -- Urine culture: Heather glabrata IV cefepime discontinued as recommended by infectious disease/neurology Received IV fluids, monitor volume status closely Avoid IV Vanco as trough level high, JUANA Appreciate infectious disease input: Once Vanco trough drops < 15 will start the patient on IV daptomycin. (Will renally dose IV daptomycin through 09/17/24) Appreciate Podiatry Input : Given ongoing treatment, will defer MRI foot for now Continue local wound care Aspiration precautions Vanco trough 14.2 on 08/20/[address] Canchola Discussed with ID on 08/21: Recommends to change Dapto, Zosyn to meropenem today. Recommends lumbar puncture. Hold antivirals for lumbar puncture per ID Consulted IR for lumbar puncture tomorrow 08/22 Currently pt intubated, s/p code blue episode as above Pt on vasopressors, febrile Acute metabolic encephalopathy Likely due to above infection/meds DD: Meningitis, encephalitis Suspected urinary tract infection--Less likely --Head CT:No acute findings in the head/brain. --Urine culture: as above --MRI Brain:No evidence of acute or subacute infarct. Reorient frequently to minimize delirium Repeat CT head showed no acute process -Normal ammonia level -Drug screen negative -VBG showed no hypercarbia -TSH elevated, normal free T4 --Thiamine B1 level pending -EEG: This is an abnormal routine EEG in a patient w altered mental state due to 1. Generalized background slowing suggestive of non specific encephalopathy, 2. Triphasic waves which are non specific but commonly seen in metabolic encephalopathies. --Lamictal levels 6.6 --Elevated INR--received vitamin K Could not get lumbar puncture initially due to elevated INR/patient agitated INR 1.4 today Valproic acid held due to rising LFTs. Neurology aware Monitor ammonia levels, received a dose of lactulose on 08/20/2024 Appreciate neurology input. Acute kidney injury likely ATN/toxic secondary to infection, vancomycin/AIN Cr: 4.4>4.1>4.0> 3.8 Creatinine was 1.6 on 08/12/2024 --CT ABD:Mild nonspecific perinephric stranding. No hydronephrosis. Simple 2 cm left renal cyst. No follow-up of this simple cyst is necessary. 08/22 -- current Cr 4.19 - nephrology/ critical care discussed poss. HD w/pt's family Avoid nephrotoxic agents as able Monitor renal function, urinary output Bladder scan as needed Metformin, Jardiance, lisinopril on hold Avoid NSAIDs Monitor for volume status Received IV fluid Appreciate nephrology input Hypercalcemia Hypernatremia Likely due to dehydration Low PTH, vitamin D levels PTH related peptide pending IV fluids as recommended by nephrology Monitor electrolytes closely Also on free water flushes through NG tube Started on calcitonin, Zometa Monitor calcium levels Calcium 12.4 on 08/21 - > (08/22) 9.4 -> 7.4 Sodium 149 on 08/21 -> now 150/148 (essentially unchanged) 08/23 calcium now down (Hypocalcemia) after treatment, ca being replaced - discussed w/ nephrology Transaminitis Likely due to sepsis, fatty liver --CT ABD:Hepatic steatosis. Hepatomegaly. Minimal free fluid around the liver and in the pelvis. --Hepatitis panel pending --Gall Bladder USD: Trace ascites. Normal sonographic appearance of the gallbladder. Large fatty liver. --Elevated INR Monitor LFTs Hold Lipitor for now GI following Valproate held due to worsening LFTs Hyponatremia--Resolved Currently hypernatremic as above Anemia Iron deficiency anemia Anemia of chronic disease No obvious signs of bleeding Vit B12, folate levels reviewed Monitor CBC Started on iron supplements Hypertension Hold lisinopril Continue atenolol with holding parameters Monitor DM II Hold home medications Adjust insulin per protocol to minimize hypoglycemic episodes Monitor blood glucose levels Hyperlipidemia Hold statin due to elevated LFTs History of seizures On Lamictal Monitor Remote history of lung cancer Treated with chemo as per records DVT Px: Heparin SQ Code Status Full code Disposition- currently ICU, prognosis guarded Admission and Anticipated Discharge Date Admission Date: August 14, 2024 Subjective Pt seen in follow up Pt was code blue/ cardiac arrest on 08/21 evening -> now in ICU Prior to this admission pt in [place] with diabetic foot / ? abscess/ cellulitis ? osteo Admitted here with JUANA, AMS, also elevated LFTs Intubated, on pressors, febrile Does not respond to voice or tactile stimuli at this time. Discussed w/ RN Nephrology, cardiology, GI, ID consulted Discussed poss. HD in the future Discussed w/ nephrology - treatment for hypercalcemia -> now hypocalcemic, Ca replaced Diarrhea, hx of c. diff - stool tested negat. c. diff gene Review of Systems Review of Systems: Unobtainable due to cognitive status and Unobtainable due to endotracheal tube Physical Exam Physical Exam: General Appearance: Moderately built and nourished, intubated Head: normocephalic, Atraumatic Neck: + IJ placed Respiratory/Chest: decreased air entry b/l, no wheezing Cardiovascular: S1, S2, No murmur Abdomen/GI:Soft, Bowel sounds present Extremities/Musculoskeletal:normal inspection, 1-2+ B/L LE edema, erythema, R great toe s/p amputation, R foot ulcer Neurologic/Psych: does not open eyes to voice or tactile stimuli on my exam, does not follow commands Skin: warm, dry Results & Data Results & Data Vital Signs (Past 12 Hours) Vital Signs Temp Pulse Resp BP Pulse Ox FiO2 08/23/24 10:30 86 25 H 99 40 08/23/24 07:39 88 29 H 100 50 08/23/24 05:33 37.4 C 85 24 100 08/23/24 05:15 37.5 C 86 24 99 08/23/24 05:00 37.4 C 87 24 100 08/23/24 04:33 37.5 C 86 22 100 08/23/24 04:30 103/64 08/23/24 04:30 103/64 08/23/24 04:27 37.4 C 87 24 99 08/23/24 04:03 37.4 C 88 23 100 08/23/24 04:00 108/59 L 08/23/24 04:00 108/59 L 08/23/24 04:00 108/59 L 08/23/24 04:00 50 08/23/24 03:42 37.5 C 88 24 99 08/23/24 03:30 110/67 08/23/24 03:30 110/67 08/23/24 03:30 110/67 08/23/24 03:30 37.5 C 88 24 99 08/23/24 03:00 37.5 C 90 24 99 08/23/24 03:00 113/64 08/23/24 02:58 88 26 H 97 50 08/23/24 02:31 110/54 L 08/23/24 02:30 37.6 C H 91 H 24 98 08/23/24 01:33 37.9 C H 89 24 99 08/23/24 01:30 120/74 08/23/24 01:24 37.9 C H 89 22 99 08/23/24 01:00 38.1 C H 87 24 99 08/23/24 00:42 38.1 C H 87 22 98 Laboratory Results 08/23/24 08/23/24 08/23/24 Range/Units 11:47 10:29 10:22 WBC (4.8-10.8) K/ul RBC (4.70-6.10) M/uL Hgb (14.0-18.0) g/dl POC Hgb 8.8 L (14.0-18.0) g/dl Hct (42.0-52.0) % POC Hct 26 L (42-52) % MCV (80.0-100.0) fL MCH (25.0-34.0) pg MCHC (32.0-36.0) g/dL RDW Std Deviation (36.4-46.3) fL RDW Coeff of Eladio (11.5-14.5) % Plt Count (130-400) K/uL MPV (9.4-12.4) fL Immature Gran % (Auto) % Neut % (Auto) % Lymph % (Auto) % Lyon % (Auto) % Eos % (Auto) % Baso % (Auto) % Neut # (Auto) (1.40-6.50) K/uL Lymph # (Auto) (1.20-3.40) K/uL Lyon # (Auto) (0.11-0.59) K/uL Eos # (Auto) (0.00-0.50) K/uL Baso # (Auto) (0.00-0.20) K/uL Immature Gran # (Auto) (0.01-0.20) K/uL Absolute Nucleated RBC (0.00-0.12) K/uL Nucleated RBC % (auto) % Polychromasia PT (9.0-12.0) Seconds INR (0.9-1.1) Specimen Type Arterial Sample Site Art Line POC pH 7.41 (7.35-7.45) POC pCO2 37 (35-46) mmHg POC pO2 87 (80-95) mmHg POC HCO3 23 (19-24) wilian/L POC Total CO2 24 (24-31) mmol/L POC Base Excess -2.0 (-9-1.8) wilian/L O2 Sat Pulse Oximetry 99 ABG pH (Temp Correct) 7.402 (7.35-7.45) ABG pCO2 (Temp Corrct 37 (35-46) mmHg POC ABG pO2 at Pt Temp 89 POC ABG O2 Sat 97.0 H (90-95) % Noah Test NA O2 Delivery Device Ventilator Vent Mode AC POC FiO2 40 % End Tidal CO2 30 POC Sodium 147 H (135-144) mmol/L Sodium 144 (136-145) mmol/L POC Potassium 3.6 (3.3-5.0) mmol/L Potassium 3.5 (3.5-5.1) mmol/L Chloride 109 H (98-107) mmol/L Carbon Dioxide 27 (21-32) mmol/L Anion Gap 8 (3-11) BUN 53 H (6-23) mg/dl Creatinine 4.25 H (0.6-1.4) mg/dl Est Cr Clr Drug Dosing 19.8 ml/min eGFR 14.71 BUN/Creatinine Ratio 12.5 (10-20) Glucose 135 H (70-99(Fasting)) mg/dl POC Glucose (70-99) mg/dl POC Glucose (other) 132 H (70-99) mg/dl Calcium 5.6 L* (8.6-10.3) mg/dl Phosphorus (2.5-4.9) mg/dl Magnesium (1.7-2.4) mg/dl Total Bilirubin (0.2-1.0) mg/dl Direct Bilirubin (0-0.2) mg/dl AST (13-39) U/L ALT (7-52) U/L Alkaline Phosphatase (34-104) U/L Total Protein (6.0-8.3) gm/dl Albumin (3.4-5.0) gm/dl 08/23/24 08/23/24 08/23/24 Range/Units 09:39 07:35 07:29 WBC 14.52 H (4.8-10.8) K/ul RBC 2.94 L (4.70-6.10) M/uL Hgb 8.8 L (14.0-18.0) g/dl POC Hgb (14.0-18.0) g/dl Hct 27.5 L (42.0-52.0) % POC Hct (42-52) % MCV 93.5 (80.0-100.0) fL MCH 29.9 (25.0-34.0) pg MCHC 32.0 (32.0-36.0) g/dL RDW Std Deviation 55.6 H (36.4-46.3) fL RDW Coeff of Eladio 19.3 H (11.5-14.5) % Plt Count 274 (130-400) K/uL MPV 9.7 (9.4-12.4) fL Immature Gran % (Auto) 4.1 % Neut % (Auto) 80.2 % Lymph % (Auto) 11.6 % Lyon % (Auto) 3.7 % Eos % (Auto) 0.1 % Baso % (Auto) 0.3 % Neut # (Auto) 11.67 H (1.40-6.50) K/uL Lymph # (Auto) 1.68 (1.20-3.40) K/uL Lyon # (Auto) 0.53 (0.11-0.59) K/uL Eos # (Auto) 0.01 (0.00-0.50) K/uL Baso # (Auto) 0.04 (0.00-0.20) K/uL Immature Gran # (Auto) 0.59 H (0.01-0.20) K/uL Absolute Nucleated RBC 0.31 H (0.00-0.12) K/uL Nucleated RBC % (auto) 2.1 % Polychromasia 1+ PT (9.0-12.0) Seconds INR (0.9-1.1) Specimen Type Sample Site POC pH (7.35-7.45) POC pCO2 (35-46) mmHg POC pO2 (80-95) mmHg POC HCO3 (19-24) wilian/L POC Total CO2 (24-31) mmol/L POC Base Excess (-9-1.8) wilian/L O2 Sat Pulse Oximetry ABG pH (Temp Correct) (7.35-7.45) ABG pCO2 (Temp Corrct (35-46) mmHg POC ABG pO2 at Pt Temp POC ABG O2 Sat (90-95) % Noah Test O2 Delivery Device Vent Mode POC FiO2 % End Tidal CO2 POC Sodium (135-144) mmol/L Sodium 146 H (136-145) mmol/L POC Potassium (3.3-5.0) mmol/L Potassium 3.2 L (3.5-5.1) mmol/L Chloride 111 H (98-107) mmol/L Carbon Dioxide 27 (21-32) mmol/L Anion Gap 8 (3-11) BUN 51 H (6-23) mg/dl Creatinine 4.30 H (0.6-1.4) mg/dl Est Cr Clr Drug Dosing 19.6 ml/min eGFR 14.51 BUN/Creatinine Ratio 11.9 (10-20) Glucose 161 H (70-99(Fasting)) mg/dl POC Glucose 140 H 157 H (70-99) mg/dl POC Glucose (other) (70-99) mg/dl Calcium 4.9 L* D (8.6-10.3) mg/dl Phosphorus 2.7 D (2.5-4.9) mg/dl Magnesium 1.5 L (1.7-2.4) mg/dl Total Bilirubin 3.3 H (0.2-1.0) mg/dl Direct Bilirubin 2.2 H (0-0.2) mg/dl AST 201 H (13-39) U/L ALT 61 H (7-52) U/L Alkaline Phosphatase 226 H (34-104) U/L Total Protein 5.7 L (6.0-8.3) gm/dl Albumin 1.8 L (3.4-5.0) gm/dl 08/23/24 08/23/24 08/23/24 Range/Units 05:53 04:37 04:26 WBC (4.8-10.8) K/ul RBC (4.70-6.10) M/uL Hgb (14.0-18.0) g/dl POC Hgb (14.0-18.0) g/dl Hct (42.0-52.0) % POC Hct (42-52) % MCV (80.0-100.0) fL MCH (25.0-34.0) pg MCHC (32.0-36.0) g/dL RDW Std Deviation (36.4-46.3) fL RDW Coeff of Eladio (11.5-14.5) % Plt Count (130-400) K/uL MPV (9.4-12.4) fL Immature Gran % (Auto) % Neut % (Auto) % Lymph % (Auto) % Lyon % (Auto) % Eos % (Auto) % Baso % (Auto) % Neut # (Auto) (1.40-6.50) K/uL Lymph # (Auto) (1.20-3.40) K/uL Lyon # (Auto) (0.11-0.59) K/uL Eos # (Auto) (0.00-0.50) K/uL Baso # (Auto) (0.00-0.20) K/uL Immature Gran # (Auto) (0.01-0.20) K/uL Absolute Nucleated RBC (0.00-0.12) K/uL Nucleated RBC % (auto) % Polychromasia PT 14.7 H (9.0-12.0) Seconds INR 1.4 H (0.9-1.1) Specimen Type Sample Site POC pH (7.35-7.45) POC pCO2 (35-46) mmHg POC pO2 (80-95) mmHg POC HCO3 (19-24) wilian/L POC Total CO2 (24-31) mmol/L POC Base Excess (-9-1.8) wilian/L O2 Sat Pulse Oximetry ABG pH (Temp Correct) (7.35-7.45) ABG pCO2 (Temp Corrct (35-46) mmHg POC ABG pO2 at Pt Temp POC ABG O2 Sat (90-95) % Noah Test O2 Delivery Device Vent Mode POC FiO2 % End Tidal CO2 POC Sodium (135-144) mmol/L Sodium (136-145) mmol/L POC Potassium (3.3-5.0) mmol/L Potassium (3.5-5.1) mmol/L Chloride (98-107) mmol/L Carbon Dioxide (21-32) mmol/L Anion Gap (3-11) BUN (6-23) mg/dl Creatinine 4.36 H (0.6-1.4) mg/dl Est Cr Clr Drug Dosing 19.3 ml/min eGFR 14.27 BUN/Creatinine Ratio (10-20) Glucose (70-99(Fasting)) mg/dl POC Glucose (70-99) mg/dl POC Glucose (other) 154 H 162 H (70-99) mg/dl Calcium (8.6-10.3) mg/dl Phosphorus (2.5-4.9) mg/dl Magnesium (1.7-2.4) mg/dl Total Bilirubin (0.2-1.0) mg/dl Direct Bilirubin (0-0.2) mg/dl AST (13-39) U/L ALT (7-52) U/L Alkaline Phosphatase (34-104) U/L Total Protein (6.0-8.3) gm/dl Albumin (3.4-5.0) gm/dl 08/23/24 08/23/24 08/23/24 Range/Units 03:58 03:01 01:56 WBC (4.8-10.8) K/ul RBC (4.70-6.10) M/uL Hgb (14.0-18.0) g/dl POC Hgb (14.0-18.0) g/dl Hct (42.0-52.0) % POC Hct (42-52) % MCV (80.0-100.0) fL MCH (25.0-34.0) pg MCHC (32.0-36.0) g/dL RDW Std Deviation (36.4-46.3) fL RDW Coeff of Eladio (11.5-14.5) % Plt Count (130-400) K/uL MPV (9.4-12.4) fL Immature Gran % (Auto) % Neut % (Auto) % Lymph % (Auto) % Lyon % (Auto) % Eos % (Auto) % Baso % (Auto) % Neut # (Auto) (1.40-6.50) K/uL Lymph # (Auto) (1.20-3.40) K/uL Lyon # (Auto) (0.11-0.59) K/uL Eos # (Auto) (0.00-0.50) K/uL Baso # (Auto) (0.00-0.20) K/uL Immature Gran # (Auto) (0.01-0.20) K/uL Absolute Nucleated RBC (0.00-0.12) K/uL Nucleated RBC % (auto) % Polychromasia PT (9.0-12.0) Seconds INR (0.9-1.1) Specimen Type Sample Site POC pH (7.35-7.45) POC pCO2 (35-46) mmHg POC pO2 (80-95) mmHg POC HCO3 (19-24) wilian/L POC Total CO2 (24-31) mmol/L POC Base Excess (-9-1.8) wilian/L O2 Sat Pulse Oximetry ABG pH (Temp Correct) (7.35-7.45) ABG pCO2 (Temp Corrct (35-46) mmHg POC ABG pO2 at Pt Temp POC ABG O2 Sat (90-95) % Noah Test O2 Delivery Device Vent Mode POC FiO2 % End Tidal CO2 POC Sodium (135-144) mmol/L Sodium (136-145) mmol/L POC Potassium (3.3-5.0) mmol/L Potassium (3.5-5.1) mmol/L Chloride (98-107) mmol/L Carbon Dioxide (21-32) mmol/L Anion Gap (3-11) BUN (6-23) mg/dl Creatinine (0.6-1.4) mg/dl Est Cr Clr Drug Dosing ml/min eGFR BUN/Creatinine Ratio (10-20) Glucose (70-99(Fasting)) mg/dl POC Glucose (70-99) mg/dl POC Glucose (other) 170 H 186 H 197 H (70-99) mg/dl Calcium (8.6-10.3) mg/dl Phosphorus (2.5-4.9) mg/dl Magnesium (1.7-2.4) mg/dl Total Bilirubin (0.2-1.0) mg/dl Direct Bilirubin (0-0.2) mg/dl AST (13-39) U/L ALT (7-52) U/L Alkaline Phosphatase (34-104) U/L Total Protein (6.0-8.3) gm/dl Albumin (3.4-5.0) gm/dl 08/23/24 08/23/24 08/22/24 Range/Units 01:03 00:20 22:50 WBC (4.8-10.8) K/ul RBC (4.70-6.10) M/uL Hgb (14.0-18.0) g/dl POC Hgb (14.0-18.0) g/dl Hct (42.0-52.0) % POC Hct (42-52) % MCV (80.0-100.0) fL MCH (25.0-34.0) pg MCHC (32.0-36.0) g/dL RDW Std Deviation (36.4-46.3) fL RDW Coeff of Eladio (11.5-14.5) % Plt Count (130-400) K/uL MPV (9.4-12.4) fL Immature Gran % (Auto) % Neut % (Auto) % Lymph % (Auto) % Lyon % (Auto) % Eos % (Auto) % Baso % (Auto) % Neut # (Auto) (1.40-6.50) K/uL Lymph # (Auto) (1.20-3.40) K/uL Lyon # (Auto) (0.11-0.59) K/uL Eos # (Auto) (0.00-0.50) K/uL Baso # (Auto) (0.00-0.20) K/uL Immature Gran # (Auto) (0.01-0.20) K/uL Absolute Nucleated RBC (0.00-0.12) K/uL Nucleated RBC % (auto) % Polychromasia PT (9.0-12.0) Seconds INR (0.9-1.1) Specimen Type Sample Site POC pH (7.35-7.45) POC pCO2 (35-46) mmHg POC pO2 (80-95) mmHg POC HCO3 (19-24) wilian/L POC Total CO2 (24-31) mmol/L POC Base Excess (-9-1.8) wilian/L O2 Sat Pulse Oximetry ABG pH (Temp Correct) (7.35-7.45) ABG pCO2 (Temp Corrct (35-46) mmHg POC ABG pO2 at Pt Temp POC ABG O2 Sat (90-95) % Noah Test O2 Delivery Device Vent Mode POC FiO2 % End Tidal CO2 POC Sodium (135-144) mmol/L Sodium (136-145) mmol/L POC Potassium (3.3-5.0) mmol/L Potassium (3.5-5.1) mmol/L Chloride (98-107) mmol/L Carbon Dioxide (21-32) mmol/L Anion Gap (3-11) BUN (6-23) mg/dl Creatinine (0.6-1.4) mg/dl Est Cr Clr Drug Dosing ml/min eGFR BUN/Creatinine Ratio (10-20) Glucose (70-99(Fasting)) mg/dl POC Glucose (70-99) mg/dl POC Glucose (other) 207 H 204 H 195 H (70-99) mg/dl Calcium (8.6-10.3) mg/dl Phosphorus (2.5-4.9) mg/dl Magnesium (1.7-2.4) mg/dl Total Bilirubin (0.2-1.0) mg/dl Direct Bilirubin (0-0.2) mg/dl AST (13-39) U/L ALT (7-52) U/L Alkaline Phosphatase (34-104) U/L Total Protein (6.0-8.3) gm/dl Albumin (3.4-5.0) gm/dl 08/22/24 08/22/24 08/22/24 Range/Units 21:53 21:01 19:55 WBC (4.8-10.8) K/ul RBC (4.70-6.10) M/uL Hgb (14.0-18.0) g/dl POC Hgb (14.0-18.0) g/dl Hct (42.0-52.0) % POC Hct (42-52) % MCV (80.0-100.0) fL MCH (25.0-34.0) pg MCHC (32.0-36.0) g/dL RDW Std Deviation (36.4-46.3) fL RDW Coeff of Eladio (11.5-14.5) % Plt Count (130-400) K/uL MPV (9.4-12.4) fL Immature Gran % (Auto) % Neut % (Auto) % Lymph % (Auto) % Lyon % (Auto) % Eos % (Auto) % Baso % (Auto) % Neut # (Auto) (1.40-6.50) K/uL Lymph # (Auto) (1.20-3.40) K/uL Lyon # (Auto) (0.11-0.59) K/uL Eos # (Auto) (0.00-0.50) K/uL Baso # (Auto) (0.00-0.20) K/uL Immature Gran # (Auto) (0.01-0.20) K/uL Absolute Nucleated RBC (0.00-0.12) K/uL Nucleated RBC % (auto) % Polychromasia PT (9.0-12.0) Seconds INR (0.9-1.1) Specimen Type Sample Site POC pH (7.35-7.45) POC pCO2 (35-46) mmHg POC pO2 (80-95) mmHg POC HCO3 (19-24) wilian/L POC Total CO2 (24-31) mmol/L POC Base Excess (-9-1.8) wilian/L O2 Sat Pulse Oximetry ABG pH (Temp Correct) (7.35-7.45) ABG pCO2 (Temp Corrct (35-46) mmHg POC ABG pO2 at Pt Temp POC ABG O2 Sat (90-95) % Noah Test O2 Delivery Device Vent Mode POC FiO2 % End Tidal CO2 POC Sodium (135-144) mmol/L Sodium (136-145) mmol/L POC Potassium (3.3-5.0) mmol/L Potassium (3.5-5.1) mmol/L Chloride (98-107) mmol/L Carbon Dioxide (21-32) mmol/L Anion Gap (3-11) BUN (6-23) mg/dl Creatinine (0.6-1.4) mg/dl Est Cr Clr Drug Dosing ml/min eGFR BUN/Creatinine Ratio (10-20) Glucose (70-99(Fasting)) mg/dl POC Glucose (70-99) mg/dl POC Glucose (other) 200 H 205 H 212 H (70-99) mg/dl Calcium (8.6-10.3) mg/dl Phosphorus (2.5-4.9) mg/dl Magnesium (1.7-2.4) mg/dl Total Bilirubin (0.2-1.0) mg/dl Direct Bilirubin (0-0.2) mg/dl AST (13-39) U/L ALT (7-52) U/L Alkaline Phosphatase (34-104) U/L Total Protein (6.0-8.3) gm/dl Albumin (3.4-5.0) gm/dl 08/22/24 08/22/24 08/22/24 Range/Units 18:49 17:57 16:40 WBC (4.8-10.8) K/ul RBC (4.70-6.10) M/uL Hgb (14.0-18.0) g/dl POC Hgb (14.0-18.0) g/dl Hct (42.0-52.0) % POC Hct (42-52) % MCV (80.0-100.0) fL MCH (25.0-34.0) pg MCHC (32.0-36.0) g/dL RDW Std Deviation (36.4-46.3) fL RDW Coeff of Eladio (11.5-14.5) % Plt Count (130-400) K/uL MPV (9.4-12.4) fL Immature Gran % (Auto) % Neut % (Auto) % Lymph % (Auto) % Lyon % (Auto) % Eos % (Auto) % Baso % (Auto) % Neut # (Auto) (1.40-6.50) K/uL Lymph # (Auto) (1.20-3.40) K/uL Lyon # (Auto) (0.11-0.59) K/uL Eos # (Auto) (0.00-0.50) K/uL Baso # (Auto) (0.00-0.20) K/uL Immature Gran # (Auto) (0.01-0.20) K/uL Absolute Nucleated RBC (0.00-0.12) K/uL Nucleated RBC % (auto) % Polychromasia PT (9.0-12.0) Seconds INR (0.9-1.1) Specimen Type Sample Site POC pH (7.35-7.45) POC pCO2 (35-46) mmHg POC pO2 (80-95) mmHg POC HCO3 (19-24) wilian/L POC Total CO2 (24-31) mmol/L POC Base Excess (-9-1.8) wilian/L O2 Sat Pulse Oximetry ABG pH (Temp Correct) (7.35-7.45) ABG pCO2 (Temp Corrct (35-46) mmHg POC ABG pO2 at Pt Temp POC ABG O2 Sat (90-95) % Noah Test O2 Delivery Device Vent Mode POC FiO2 % End Tidal CO2 POC Sodium (135-144) mmol/L Sodium (136-145) mmol/L POC Potassium (3.3-5.0) mmol/L Potassium (3.5-5.1) mmol/L Chloride (98-107) mmol/L Carbon Dioxide (21-32) mmol/L Anion Gap (3-11) BUN (6-23) mg/dl Creatinine (0.6-1.4) mg/dl Est Cr Clr Drug Dosing ml/min eGFR BUN/Creatinine Ratio (10-20) Glucose (70-99(Fasting)) mg/dl POC Glucose (70-99) mg/dl POC Glucose (other) 218 H 228 H 228 H (70-99) mg/dl Calcium (8.6-10.3) mg/dl Phosphorus (2.5-4.9) mg/dl Magnesium (1.7-2.4) mg/dl Total Bilirubin (0.2-1.0) mg/dl Direct Bilirubin (0-0.2) mg/dl AST (13-39) U/L ALT (7-52) U/L Alkaline Phosphatase (34-104) U/L Total Protein (6.0-8.3) gm/dl Albumin (3.4-5.0) gm/dl 08/22/24 08/22/24 08/22/24 Range/Units 15:48 14:52 14:36 WBC (4.8-10.8) K/ul RBC (4.70-6.10) M/uL Hgb (14.0-18.0) g/dl POC Hgb (14.0-18.0) g/dl Hct (42.0-52.0) % POC Hct (42-52) % MCV (80.0-100.0) fL MCH (25.0-34.0) pg MCHC (32.0-36.0) g/dL RDW Std Deviation (36.4-46.3) fL RDW Coeff of Eladio (11.5-14.5) % Plt Count (130-400) K/uL MPV (9.4-12.4) fL Immature Gran % (Auto) % Neut % (Auto) % Lymph % (Auto) % Lyon % (Auto) % Eos % (Auto) % Baso % (Auto) % Neut # (Auto) (1.40-6.50) K/uL Lymph # (Auto) (1.20-3.40) K/uL Lyon # (Auto) (0.11-0.59) K/uL Eos # (Auto) (0.00-0.50) K/uL Baso # (Auto) (0.00-0.20) K/uL Immature Gran # (Auto) (0.01-0.20) K/uL Absolute Nucleated RBC (0.00-0.12) K/uL Nucleated RBC % (auto) % Polychromasia PT (9.0-12.0) Seconds INR (0.9-1.1) Specimen Type Sample Site POC pH (7.35-7.45) POC pCO2 (35-46) mmHg POC pO2 (80-95) mmHg POC HCO3 (19-24) wilian/L POC Total CO2 (24-31) mmol/L POC Base Excess (-9-1.8) wilian/L O2 Sat Pulse Oximetry ABG pH (Temp Correct) (7.35-7.45) ABG pCO2 (Temp Corrct (35-46) mmHg POC ABG pO2 at Pt Temp POC ABG O2 Sat (90-95) % Noah Test O2 Delivery Device Vent Mode POC FiO2 % End Tidal CO2 POC Sodium (135-144) mmol/L Sodium 148 H (136-145) mmol/L POC Potassium (3.3-5.0) mmol/L Potassium 3.5 (3.5-5.1) mmol/L Chloride 111 H (98-107) mmol/L Carbon Dioxide 26 (21-32) mmol/L Anion Gap 11 (3-11) BUN 42 H (6-23) mg/dl Creatinine 4.19 H (0.6-1.4) mg/dl Est Cr Clr Drug Dosing 20.0 ml/min eGFR 14.97 BUN/Creatinine Ratio 10.0 (10-20) Glucose 265 H (70-99(Fasting)) mg/dl POC Glucose (70-99) mg/dl POC Glucose (other) 245 H 264 H (70-99) mg/dl Calcium 7.4 L D (8.6-10.3) mg/dl Phosphorus (2.5-4.9) mg/dl Magnesium (1.7-2.4) mg/dl Total Bilirubin (0.2-1.0) mg/dl Direct Bilirubin (0-0.2) mg/dl AST (13-39) U/L ALT (7-52) U/L Alkaline Phosphatase (34-104) U/L Total Protein (6.0-8.3) gm/dl Albumin (3.4-5.0) gm/dl Medications Administered Current Inpatient Medications Aspirin (Aspirin 81 Mg Chew) 81 mg NG DAILY ANDREI Stop: 09/18/24 08:59 Last Admin: 08/23/24 09:13 Dose: 81 mg Atenolol (Atenolol 50 Mg Tablet) 100 mg NG DAILY ANDREI Stop: 09/14/24 08:59 Last Admin: 08/22/24 07:47 Dose: Not Given Atorvastatin Calcium (Atorvastatin 20 Mg Tab) 20 mg PO DAILY ANDREI Stop: 09/14/24 08:59 Bisacodyl (Bisacodyl 10 Mg Supp) 10 mg MI DAILY PRN PRN Reason: Constipation Stop: 09/13/24 23:09 Calamine/Phenol (Menthol-Zinc Oxide 360 Appln/120 Gm Tube) 1 appln EXT DAILY [facility] Stop: 09/17/24 15:14 Last Admin: 08/23/24 09:15 Dose: 1 appln Calcium Carbonate (Calcium Carbonate 1,250 Mg/5 Ml Udc) 1,250 mg NG TID ANDREI Stop: 09/22/24 08:59 Last Admin: 08/23/24 09:06 Dose: 1,250 mg Cyanocobalamin (Cyanocobalamin (B-12) 500 Mcg Tablet) 500 mcg NG DAILY [facility] Stop: 09/14/24 08:59 Last Admin: 08/23/24 09:14 Dose: 500 mcg Dextrose (Dextrose 50% 50 Ml Syringe) 25 - 50 ml IV UD PRN; Protocol PRN Reason: Hypoglycemia Protocol Stop: 09/13/24 23:09 Last Admin: 08/21/24 21:58 Dose: 50 ml Enteral Nutritional Formula (Novasource Renal 2.0 Yovani 1000ml Bag) 1,000 ml OG .See Protocol ANDREI; Protocol Stop: 09/21/24 10:57 Last Admin: 08/22/24 13:18 Dose: 1,000 ml Fentanyl Citrate (Fentanyl Bolus From Bag) 50 mcg IV Q60M PRN PRN Reason: Pain or Agitation Stop: 09/04/24 19:34 Ferrous Sulfate (Ferrous Sulfate 325 Mg/7.4 Ml Udp) 325 mg NG DAILY [facility] Stop: 09/18/24 08:59 Last Admin: 08/23/24 09:14 Dose: 325 mg Glucagon (Glucagon For Inj 1 Mg Vial) 1 mg SQ UD PRN; Protocol PRN Reason: Hypoglycemia Protocol Stop: 09/13/24 23:09 Glucose (Glucose 40% Gel 15 Gm Tube) 15 - 30 gm PO UD PRN; Protocol PRN Reason: Hypoglycemia Protocol Stop: 09/13/24 23:09 Glucose (Glucose 10 Tab/Tube) 4 - 8 tab PO UD PRN; Protocol PRN Reason: Hypoglycemia Protocol Stop: 09/13/24 23:09 Heparin Sodium (Beef Lung) (Heparin 10 Unit/Ml 5 Ml Flush) 5 ml FLUSH PRN PRN PRN Reason: Flush Stop: 03/21/25 03:11 Last Admin: 08/18/24 10:08 Dose: 5 ml Heparin Sodium (Porcine) (Heparin Sod 5,000 Unit/0.5 Ml Vial) 5,000 units SQ Q8H ANDREI Stop: 09/14/24 00:00 Last Admin: 08/23/24 09:21 Dose: 5,000 units Thiamine HCl 100 mg/ Syringe 10 mls @ 2 mls/min IV QAM ANDREI Stop: 09/17/24 15:44 Last Admin: 08/23/24 09:16 Dose: 2 mls/min Meropenem 1,000 mg/ Syringe 20 mls @ 4 mls/min IV Q12H [facility]; Protocol Stop: 08/31/24 13:59 Last Admin: 08/23/24 01:52 Dose: 4 mls/min Acetaminophen (Ofirmev) 1,000 mg in 100 mls @ 400 mls/hr IV Q8H PRN PRN Reason: Pain or Fever Stop: 08/24/24 13:32 Last Infusion: 08/23/24 00:23 Dose: Infused Vasopressin 20 units/ Sodium (Chloride) 101 mls @ 0 mls/hr IV .Q0M ANDREI Stop: 09/20/24 18:59 Last Infusion: 08/23/24 00:11 Dose: 0 unit/min, 0 mls/hr Fentanyl Citrate (Fentanyl Citrate) 2,500 mcg in 250 mls @ 7.5 mls/hr IV .[id number] [facility]; Protocol Stop: 09/04/24 19:44 Last Admin: 08/23/24 01:57 Dose: 75 mcg/hr, 7.5 mls/hr Norepinephrine Bitartrate (Levophed/D5w) 4 mg in 250 mls @ 0 mls/hr IV .Q0M [facility]; Protocol Stop: 09/20/24 19:59 Last Titration: 08/23/24 04:49 Dose: 0 mcg/kg/min, 0 mls/hr Pantoprazole Sodium (Protonix) 40 mg in 10 mls @ 5 mls/min IV DAILY [facility] Stop: 09/21/24 08:59 Last Admin: 08/23/24 09:16 Dose: 5 mls/min Hydrocortisone Sodium (Succinate 50 mg/ Syringe) 1 mls @ 4 mls/min IV Q6H ANDREI Stop: 08/24/24 06:01 Last Admin: 08/23/24 11:38 Dose: 4 mls/min Hydrocortisone Sodium (Succinate 50 mg/ Syringe) 1 mls @ 4 mls/min IV Q12H [facility] Stop: 08/26/24 06:01 Hydrocortisone Sodium (Succinate 50 mg/ Syringe) 1 mls @ 4 mls/min IV Q24H [facility] Stop: 08/27/24 18:01 Insulin Human Regular 250 (units/ Sodium Chloride) 250 mls @ 4.9 mls/hr IV .Q24H [facility]; Protocol Stop: 09/21/24 13:44 Last Titration: 08/23/24 07:38 Dose: 4.9 units/hr, 4.9 mls/hr Magnesium Sulfate/Dextrose (Magnesium Sulfate / D5w) 1 gm in 100 mls @ 50 mls/hr IV Q2H [facility] Stop: 08/23/24 14:44 Last Admin: 08/23/24 10:50 Dose: 50 mls/hr Insulin Aspart (Insulin Aspart Per Unit Charge) 0 units SC Q4 [facility] Stop: 09/21/24 16:59 Last Admin: 08/23/24 11:56 Dose: 1 units Ipratropium [place] (Ipratropium [place] Neb Soln 0.02% 0.5mg/2.5ml Vial) 0.5 mg INH QIDR PRN PRN Reason: Shortness Of Breath Or Wheezing Stop: 09/21/24 10:08 Lactobacillus Acidophilus (Advanced Probiotic 625 Mg Capsule) 1,250 mg PO DAILY [facility] Stop: 09/14/24 08:59 Last Admin: 08/22/24 09:26 Dose: 1,250 mg Lamotrigine (Lamotrigine 100 Mg Tab) 100 mg PO BID [facility]; Protocol Stop: 09/14/24 08:59 Last Admin: 08/23/24 09:15 Dose: 100 mg Levalbuterol HCl (Levalbuterol 1.25 Mg/3 Ml Neb) 1.25 mg NEB QIDR PRN PRN Reason: Shortness Of Breath Or Wheezing Stop: 09/20/24 14:59 Miscellaneous (Carbohydrates For Hypoglycemia ) 15 - 30 gm PO UD PRN PRN Reason: Hypoglycemia Protocol Stop: 09/13/24 23:09 Multivitamins/Minerals (Multi Vit W/Minerals Liquid 15 Ml Udc) 15 ml NG QAM ANDREI Stop: 09/18/24 08:59 Last Admin: 08/20/24 08:12 Dose: 15 ml Nitroglycerin (Nitroglycerin Sl 0.4 Mg/Tab Tab) 0.4 mg SL Q5M PRN PRN Reason: Chest Pain Stop: 09/13/24 23:09 Sterile Water (Tube Feeding Water Flush) 200 ml GT Q4H ANDREI Stop: 09/20/24 20:59 Last Admin: 08/23/24 11:37 Dose: 200 ml
[2024-08-23 14:34] LABS: BUN Creatinine Ratio 12.7 (10-20); Calcium 5.4 mg/dl (8.6-10.3); Creatinine Clr Calc Pharmacy 20.5 ml/min; Potassium 3.3 mmol/L (3.5-5.1)
--- NOTE | 2024-08-23 15:30 | Communication Note ---
Date of Service: August 23, 2024 Ca 5.4 1330 > and K 3.3 w/ loose BM Ordered: -ca gluconate 3 more gm IV -K 60 mEq NG once -BMP 1700
[2024-08-23] MEDS: POTASSIUM CHLORIDE 20 MEQ/15 ML UDC NG STA (15:35)
--- NOTE | 2024-08-23 15:36 | Communication Note ---
Date of Service: August 23, 2024 LFTs stable
[2024-08-23] MEDS: fentaNYL BOLUS from BAG IV PRN (16:09)
[2024-08-23] MEDS: POTASSIUM CHLORIDE 20 MEQ/15 ML UDC PO STA (16:21)
[2024-08-23 17:17] LABS: BUN Creatinine Ratio 12.7 (10-20); Creatinine Clr Calc Pharmacy 20.2 ml/min; Potassium 3.7 mmol/L (3.5-5.1)
--- NOTE | 2024-08-23 17:42 | Communication Note ---
Date of Service: August 23, 2024 1700 Ca 6, K 3.6, mag 1.5 > 3 more gm IV Ca gluconate stat >KCl 40 mEq NG >repeat bmp 1930 Recommend practice administrator in ICU f/u bmp q2-4 hrs overnight and replete PRN
[2024-08-23 20:20] LABS: BUN Creatinine Ratio 13.3 (10-20); Creatinine Clr Calc Pharmacy 20.4 ml/min; Magnesium 2.1 mg/dl (1.7-2.4); Potassium 4.3 mmol/L (3.5-5.1)
[2024-08-23] MEDS: CALCIUM CHLORIDE 10% 1,000 MG in DEXTROSE 5% 50 ML IV ONE ×2 (21:15→21:29)
[2024-08-24 01:03] LABS: BUN Creatinine Ratio 13.1 (10-20); Creatinine Clr Calc Pharmacy 20.4 ml/min
[2024-08-24 04:48] LABS: Hematocrit (blood only) 27.3 % (42.0-52.0); Hemoglobin 8.5 g/dl (14.0-18.0); Mean Corpuscular Hemoglobin 29.3 pg (25.0-34.0); Mean Corpuscular Hgb Conc 31.1 g/dL (32.0-36.0); Mean Corpuscular Volume 94.1 fL (80.0-100.0); Mean Platelet Volume 9.6 fL (9.4-12.4); Nucleated RBC # (auto) 0.37 K/uL (0.00-0.12); Nucleated RBC % (auto) 2.2 %; Platelet Count 288 K/uL (130-400); RDW Coefficient of Variation 19.5 % (11.5-14.5); RDW Standard Deviation 57.3 fL (36.4-46.3); White Blood Count 16.79 K/ul (4.8-10.8)
[2024-08-24 05:13] LABS: Albumin Level 1.9 gm/dl (3.4-5.0); BUN Creatinine Ratio 13.5 (10-20); Bilirubin Direct 2.9 mg/dl (0-0.2); Bilirubin,Total 4.3 mg/dl (0.2-1.0); Calcium 5.6 mg/dl (8.6-10.3); Creatinine Clr Calc Pharmacy 21.1 ml/min; Magnesium 1.9 mg/dl (1.7-2.4); Potassium 3.5 mmol/L (3.5-5.1); Total Protein 5.7 gm/dl (6.0-8.3)
[2024-08-24] MEDS ORDERED: POTASSIUM PHOS 3 MMOL/1 ML INFUSION IV STA (05:22)
[2024-08-24] MEDS ORDERED: CALCIUM CHLORIDE 10% 1,000 MG in DEXTROSE 5% 50 ML IV STA (05:30)
[2024-08-24] MEDS: POTASSIUM CHLORIDE 20 MEQ/15 ML UDC PO STA (05:35)
[2024-08-24] MEDS: MAGNESIUM SULFATE / D5W 1 GM/100 ML BAG IV SCH (05:36)
[2024-08-24 05:40] LABS: Basophils # (auto) 0.03 K/uL (0.00-0.20); Basophils % (auto) 0.2 %; Eosinophils # (auto) 0.01 K/uL (0.00-0.50); Eosinophils % (auto) 0.1 %; Immature Granulocytes # (auto) 0.95 K/uL (0.01-0.20); Immature Granulocytes % (auto) 5.7 %; Lymphocytes # (auto) 1.57 K/uL (1.20-3.40); Lymphocytes % (auto) 9.4 %; Monocytes # (auto) 0.58 K/uL (0.11-0.59); Monocytes % (auto) 3.5 %; Neutrophils # (auto) 13.65 K/uL (1.40-6.50); Neutrophils % (auto) 81.1 %; Polychromasia 1+
[2024-08-24] MEDS: CALCIUM CHLORIDE 10% 1,000 MG in DEXTROSE 5% 50 ML IV STA (05:42)
[2024-08-24] MEDS: CALCIUM CHLORIDE 10% 1,000 MG in DEXTROSE 5% 50 ML IV ONE ×2 (06:01→06:29)
[2024-08-24] MEDS: POTASSIUM PHOSPHATE 8 MMOL in SODIUM CHLORIDE 0.9% 250 ML IV ONE (06:42)
--- NOTE | 2024-08-24 08:42 | Critical Care Progress Note ---
Date of Service August 24, 2024 Assessment & Plan (1) Hypercalcemia: (2) Transaminitis: (3) Encephalopathy: (4) Cellulitis of left lower extremity: (5) Diabetic foot ulcer: (6) JUANA (acute kidney injury): (7) Cardiac arrest: (8) Shock circulatory: Plan Reason Critically Ill: 63-year-old male admitted to the hospital for lower extremity cellulitis as well as osteomyelitis for right foot ulcer Past medical history: Seizures, dyslipidemia, diabetes, hypertension, history of lung cancer Neuro - [facility] ICU: Unable to assess -- Encephalopathy Multifactorial Hypercalcemia with calcium of 12.4, corrected calcium around 14 --> resolved --> now hypocalcemic Ammonia 64 Elevated TSH with normal free T4 CT head negative 08/19/2024 Brain MRI 08/16/2024 negative Cardiac - 2D echo 08/21/2024: EF greater than 70%, mild concentric LVH, borderline RV enlargement, no significant valvular disease, no pericardial effusion -- Cardiac arrest with shock Patient had bradycardia and then asystole on the telemetry strip Continue with vasopressor support to keep MAP greater than 65 --Anasarca with severe protein-calorie malnutrition Albumin 2 Respiratory - -- VDRF For airway protection from cardiac arrest Continue with ventilatory support Keep RASS -1 Daily sedation holidays and SBT's --Right lower lobe aspiration pneumonia On antibiotics -- Chronic elevation of the right hemidiaphragm GI - --Transaminitis Etiology is likely coming from medication/antibiotic initially followed by cardiac arrest Used to be on vancomycin as an outpatient, also got cefepime while he was in the hospital as well as Depakote Trending down Continue to monitor Hepatitis panel - negative on 08/19/2024 RENAL/LYTES - -- JUANA on CKD Avoid nephrotoxic medication Monitor BUNs/creatinine --Hypernatremia with hyperchloremia Getting free water flushes through the OGT -- Status post hypercalcemia Appreciated after coming to the hospital PTH less than 7, goes along with secondary hypercalcemia Patient did get 3 doses calcitonin as well as 1 dose of zalendronic acid Etiology for hypercalcemia is unclear. Patient was eucalcemic when he came in and actually hypocalcemic when he was admitted at [facility] last month. He did not get any fluids to cause hypercalcemia [place] MGUS, MDS versus multiple myeloma ENDO - -- Diabetes type 2 ICU hypoglycemia protocol HEME - -- Normocytic anemia Monitor H&H ID - -- Osteomyelitis On antibiotics, infectious disease on board Procalcitonin> 100 on presentation, downtrending --Right lower lobe aspiration pneumonia On meropenem Will complete the course of meropenem for total of 6 days. --Loose bowel movement Negative for C. difficile toxin and antigen --Prophylaxis VTE: Heparin GI: Pantoprazole Lines: Right radial, right arm PICC Diet: N.p.o. Plan: In/out: + 3.1 L, urine output 852 ml, +13 L since coming to the hospital Sodium is improving, decrease free water flushes to 150 mL every 6 Potassium, phosphorus, magnesium as well as calcium being replaced. Continue to monitor BMP every 4 hours till the calcium stabilizes No acute indication for dialysis right now but if there is no urine output that that is a possibility Patient's son and [id number] were updated regarding current condition Overall prognosis is guarded After discussion with the family, decision was made to not to escalate the care continue with vasopressor support but no CPR in future if need be I have personally spent 39 minutes of critical care time in the direct management of this patient. This is a life/limb threatening event. This includes time spent evaluating patient, direct bedside care, chart review, placing orders, interpretation of diagnostic studies, discussion with consultants, patient, and family members, as well as other required patient management activities. This time is exclusive of all separately billable procedures, and teaching time and separate from and in addition to any other critical care service time. Admission and Anticipated Discharge Date Admission Date: August 14, 2024 Subjective Patient seen and examined at bedside. No acute distress, no adverse events overnight He was on 0.05 of Levophed, fentanyl 175 at the time of examination and propofol 25 He was breathing over the vent. He opens his eyes but does not track Moves bilateral upper extremity spontaneously but no purposeful movement Still spiking low-grade fever Review of Systems 2 Review of Systems: Unobtainable due to endotracheal tube Physical Exam 2 Physical Exam: Constitutional: No respiratory distress HEENT: PERRLA, sluggish response Respiratory system: Decreased air entry bilaterally, no wheeze, no rhonchi, positive crackles bilateral lower lobe CVS: S1-S2 positive, no murmurs or gallops Abdomen: Soft, nontender, nondistended, positive bowel sounds x4 Extremities: +2 pulses bilaterally radialis/ dorsalis pedis, no cyanosis, +2 pitting edema bilateral lower extremity, right first and second toe amputation Neuro: Breathing over the vent, opening eyes to noise, does not follow any commands Psych: Unable to assess G/U: Positive [place] Skin: no rashes, warm and dry Lymphatic: no cervical or axillary lymphadenopathy Results & Data Results & Data Vital Signs (Past 12 Hours) Vital Signs Temp Pulse Resp BP Pulse Ox O2 Del Method FiO2 08/24/24 08:22 40 08/24/24 08:22 98 H 135/74 08/24/24 08:00 36.7 C 98 H 25 H 94 08/24/24 08:00 135/74 08/24/24 08:00 135/74 08/24/24 07:57 36.7 C 97 H 20 95 08/24/24 07:33 36.6 C 96 H 23 95 08/24/24 07:18 97 H 22 95 40 08/24/24 07:15 36.5 C 97 H 22 95 08/24/24 07:06 36.4 C L 100 H 27 H 92 08/24/24 06:54 36.2 C L 96 H 23 92 08/24/24 06:36 35.4 C L 100 H 28 H 93 08/24/24 06:18 33.3 C L 96 H 24 95 08/24/24 06:03 37.6 C H 88 19 96 08/24/24 06:01 120/62 08/24/24 06:01 120/62 08/24/24 06:01 120/62 08/24/24 06:01 120/62 08/24/24 05:54 37.6 C H 88 19 97 08/24/24 05:39 37.7 C H 87 20 98 08/24/24 05:15 37.6 C H 90 25 H 97 08/24/24 04:54 37.7 C H 91 H 24 96 08/24/24 04:39 129/68 96 Mechanical Vent 40 08/24/24 04:26 95 H 26 H 91 40 08/24/24 04:24 37.7 C H 90 22 94 08/24/24 04:21 37.7 C H 92 H 23 93 08/24/24 04:06 94 H 28 H 94 Mechanical Vent 40 08/24/24 04:00 40 08/24/24 04:00 92 H 08/24/24 03:45 94 H 33 H 92 08/24/24 03:15 37.6 C H 90 26 H 97 08/24/24 03:00 37.6 C H 90 26 H 97 08/24/24 03:00 106/62 08/24/24 03:00 106/62 08/24/24 02:30 37.6 C H 94 H 36 H 91 08/24/24 02:21 93 H 30 H 94 08/24/24 02:03 92 H 24 97 08/24/24 02:00 11108/24/24 02:00 11108/24/24 02:00 11108/24/24 02:00 11108/24/24 01:42 37.5 C 96 H 28 H 96 08/24/24 01:36 37.5 C 94 H 28 H 95 08/24/24 01:19 92 H 08/24/24 01:18 37.6 C H 94 H 25 H 94 08/24/24 01:13 116/75 08/24/24 01:13 116/75 08/24/24 01:12 37.6 C H 95 H 29 H 95 08/24/24 01:06 37.6 C H 96 H 33 H 94 08/24/24 00:58 87 18 97 40 08/24/24 00:45 105 H 33 H 93 08/24/24 00:30 37.5 C 94 H 31 H 93 Mechanical Vent 40 08/24/24 00:15 37.6 C H 93 H 26 H 93 08/24/24 00:00 107/59 L 08/24/24 00:00 107/59 L 08/24/24 00:00 107/59 L 08/24/24 00:00 107/59 L 08/24/24 00:00 37.6 C H 91 H 22 93 Mechanical Vent 40 08/24/24 00:00 40 08/24/24 00:00 87 08/23/24 23:54 37.6 C H 91 H 25 H 94 08/23/24 23:30 37.5 C 90 27 H 100 08/23/24 23:03 37.6 C H 87 25 H 98 Mechanical Vent 40 08/23/24 23:00 110/64 08/23/24 22:27 37.6 C H 84 21 98 08/23/24 22:01 129/69 08/23/24 21:57 37.6 C H 85 19 98 08/23/24 21:51 37.5 C 85 19 97 08/23/24 21:33 37.6 C H 83 20 98 08/23/24 21:15 37.6 C H 83 22 99 08/23/24 21:06 37.5 C 85 22 99 Mechanical Vent 40 08/23/24 21:00 40 08/23/24 20:45 37.5 C 84 22 99 Laboratory Results 08/24/24 04:14 08/24/24 04:14 Coding Level of Care Code 19686 CRITICAL CARE 1ST 30-74M Diagnoses Hypercalcemia E83.52 Transaminitis R74.01 Encephalopathy G93.40 Cellulitis of left lower extremity L03.116 Diabetic foot ulcer E11.621; L97.412 Diabetes mellitus type: type 2 Diabetic foot ulcer location: midfoot Laterality: right Non-pressure ulcer stage: with fat layer exposed JUANA (acute kidney injury) N17.9 Cardiac arrest I46.9 Shock circulatory R57.9 (5) Diabetic foot ulcer Diabetes mellitus type: type 2 Diabetic foot ulcer location: midfoot L aterality: right Non-pressure ulcer stage: with fat layer exposed Qualified Code(s): E11.621 - Type 2 diabetes mellitus with foot ulcer; L97.412 - Non- pressure chronic ulcer of right heel and midfoot with fat layer exposed
--- NOTE | 2024-08-24 09:10 | Podiatry Progress Note ---
Date of Service August 17, 2024 Assessment & Plan (1) Diabetic ulcer of right foot associated with diabetes mellitus due to underlying condition, with bone involvement without evidence of necrosis: (2) Cellulitis of right lower extremity: (3) Cellulitis of left lower extremity: Plan Diabetic ulcer right foot: Clinical improvement noted to the wound of the right foot. Increased granulation tissue to the wound bed. Decreased depth with no frankly exposed bone or probable bone noted on exam. No signs of local soft tissue infection. Scant sanguinous drainage only. X-rays right throat 3 views 08/15/2024: Plain film radiographs reviewed with no radiographic signs of osteomyelitis. Right lower extremity duplex arterial ultrasound 08/15/2024:IMPRESSION: Negative right lower extremity arterial evaluation. No occlusion or significant hemodynamic stenosis with multiphasic waveforms throughout. -No indication for further imaging of the foot at this time. ID recommendations reviewed. Plan in place to continue IV antibiotics for the management of right foot right foot osteomyelitis. Weightbearing status: Patient remain nonweightbearing right foot. Will likely have patient fit with offloading cam walker prior to discharge. Wound dressing right foot: Change dressing once daily. Flushed wound with normal sterile saline, dry and dress with Aquacel Ag and a DSD. Follow-up in a wound care center either in [place] or here in [place] following discharge for the continued care of the right foot. Thank you for consulting podiatry to aid in the care of this patient. Admission and Anticipated Discharge Date Admission Date: August 14, 2024 Subjective Patient seen in ICU with family present at bedside. Discussed the treatment and plan of patient's foot wound with family and all questions answered. Review of Systems Review of Systems: Unable to obtain review of systems. Physical Exam Physical Exam: Physical exam: Capillary refill time is less than 3-4 seconds all digits of the bilateral foot. Posterior tibial and dorsalis pedis pulses are non-palpable bilateral. Skin: Thin atrophic skin with loss of hair growth below the knee. Neuro: Loss of protective sensation to the bilateral foot as tested with [place] 5.07 monofilament. Focused lower extremity musculoskeletal exam: Ankles: Normal to inspection and palpation. No tenderness bilaterally. Motor strength is intact. Range of motion pain-free with limited dorsiflexion of the ankle bilateral. Feet: History of partial first ray amputation right foot. Plantar ulceration of the midfoot right foot. There is a fading X marked on the dorsal aspect of both feet this am assuming is where they were able to find a dorsalis pedis pulse with the bedside Doppler during his previous hospital stay. Ulcer right foot: Ulcer to the plantar medial right midfoot with increased gr anular tissue to the wound bed and some signs of encroaching epithelial tissue circumferentially. Wound probes 1.2 cm proximal and distal to the superficial opening. Probing to a soft tissue endpoint at this point. No janae probe to bone identified within the wound bed. Minimal sanguinous drainage on evaluation with scant genaro-colored serous drainage to the dressing noted. No notable malodor. No periwound erythema and edema. Bilateral leg below the knee is erythematous with thin atrophic skin. No apparent wound to the left foot. Results & Data Results & Data Vital Signs (Past 12 Hours) Vital Signs Temp Pulse Pulse Resp BP Pulse Ox O2 Del Method 08/17/24 14:14 36.9 C 96 H 28 H 95 Nasal Cannula 08/17/24 13:29 36.9 C 08/17/24 11:08 100 H 29 H 188/89 H 100 Nasal Cannula 08/17/24 10:54 86 08/17/24 08:00 Nasal Cannula 08/17/24 07:48 86 23 157/76 H 97 Nasal Cannula 08/17/24 06:00 99 H 08/17/24 03:45 37.1 C 88 22 139/88 97 Nasal Cannula O2 Flow Rate 08/17/24 14:14 4 08/17/24 13:29 08/17/24 11:08 4 08/17/24 10:54 08/17/24 08:00 4 08/17/24 07:48 4 08/17/24 06:00 08/17/24 03:45 4.0 Coding Level of Care Code 88828 SUB INP/OBS CARE 2/35MIN Diagnoses Diabetic ulcer of right midfoot associated with diabetes mellitus due to underlying condition, with bone involvement without evidence of necrosis E08.621; L97.416 Diabetic foot ulcer location: midfoot Cellulitis of right lower extremity L03.115 Cellulitis of left lower extremity L03.116 (1) Diabetic ulcer of right foot associated with diabetes mellitus due to underlying condition, with bone involvement without evidence of necrosis Diabetic foot ulcer location: midfoot Qualified Code(s): E08.621 - Diabetes mellitus due to underlying condition with foot ulcer; L97.416 - Non-pressure chronic ulcer of right heel and midfoot with bone involvement without evidence of necrosis
[2024-08-24 09:26] LABS: BUN Creatinine Ratio 14.1 (10-20); Calcium 6.8 mg/dl (8.6-10.3); Creatinine Clr Calc Pharmacy 22.7 ml/min; Magnesium 2.3 mg/dl (1.7-2.4); Potassium 4.2 mmol/L (3.5-5.1)
--- NOTE | 2024-08-24 09:37 | XRay Report ---
XR chest 1V portable CLINICAL HISTORY: f/u COMPARISON STUDY: 08/22/2024 through 08/14/2024 FINDINGS: Endotracheal tube tip is at the thoracic inlet. Nasogastric tube tip is off the field of vi ew inferiorly. Right central catheter is stable. There is stable cardiomegaly without pulmonary vascu lar congestion. There is stable to increased prominent elevation of the right hemidiaphragm with jeanine sly stable consolidation at the right lower lung. No pneumothorax. IMPRESSION: Stable to mildly increased prominent elevation of the right hemidiaphragm with grossly s table consolidation at the right lower lung. ACT 112: Negative or not required by law. Electronically signed by: Morgan Medina M.D. 08/24/2024 9:35 AM
[2024-08-24] MEDS ORDERED: STAT IV Infusion **Titration per Protocol STA (10:21)
[2024-08-24] MEDS: propofoL 1,000 MG/100 ML VIAL IV SCH (10:30)
--- NOTE | 2024-08-24 11:35 | Nephrology Progress Note ---
Date of Service August 24, 2024 Assessment & Plan (1) Hypocalcemia: Plan: ongoing improved but still CRITICAL hypocalcemia starting 72 hrs after bisphosphonate for severe hypercalcemia, cause for original ca elevation unclear corrected Ca 13.8, Ca 12.8 on 08/20; Ca 12.4 on 08/21; Ca 9.4 on 08/22, 4.9 on 08/23 25 OH D 26; phos 2.7 PTH 7 on 08/19 hypercalcemia RESOLVED after low dose bisphosphonate; hopefully his MS will improve with lower calcium; notably at [facility] admission 08/02-08/11 he was consistently hypophosphatemic and hypocalcemic hypocalcemic (but not critically so) in [facility] on 08/23 he had critical hypocalcemia Ca 4.9 >> had 11 gm IV Ca on 08/23 plus NG as well; PTH 195 Last CA 6.9 >> >>>>again ordered 3 gm IV ca gluconate after midday bmp posts, hold for Ca > 7.2 and d/w nephro -cont ca carbonate suspension 1.3 gm tid NG -cont q4h BMP and run stat/urgent -n ofurther mag/K repletion required -PTH appropriately elevated now -await PTHrp <<not likely to be helpful; done for completeness (2) JUANA (acute kidney injury): Plan: improving stage 3 oliguric JUANA w/ multiple phases/hits >> admitted from [facility] w/ sepsis versus AIN also on ddx. Admitting creatinine on 08/13 4.5, which was peak value. was slowly improving creatinine and > 2L UOP daily (in setting of elevated Ca) hen 08/21 cardiac arrest and in wake of this (and normal/low Ca) oliguria and worsening JUANA but this has stabilized, oliguria resolved on 08/24 and starting to improve Admitted [facility] 08/02-08/11 >> Date Creat Ca C02 consistently 18-19 on these dates; phos in high ones 08/06-08/10 08/08 0.8 7.5 08/09 1.0 7.5 08/10 1.6 6.8 08/11 2.8 6.9 Also during [facility] admission had 08/07 drug reaction to ANCEF w/ rash and F > rounding team thought this might be drug fever. d/c to [facility] 08/11 where he continued to have F, dyspnea, ongoing redness/wound concerns and had at least one dose of rocephin [facility] could be Ischemic or toxic in the setting of Sepsis/vanco. acute interstitial nephritis is also on differential; reluctant to give steroids in setting of therapy for OM and concerns for aspiration PNA; marked eosinophilia (total eos 3X ULN) however urine eos negative x 3 08/23 (some delay/challenges getting test done so in theory could have resolved as well; appreciate nursing/lab teams help w/ urine eos) doubt an abrupt MGUS; could consider GN but he'd need biopsy to diagnose; not obstructed On 08/21 he had a cardiac arrest > became oliguric w/ 125 mL UOP for 12 h ON and 310 total for 08/22 and again 125 mL UOP ON into 08/23; oliguria resolved now 1.8 gm proteinuria >last F 08/23 1230 > 38.2 >>>not overloaded yet but 13.5 L + on the admission and 6.9L+ past 48 hr >>>2 days oliguria resolved on its own > autodiuresing >>>slightly worse JUANA after cardiac arrest improving now > today is lowest creat this admission so far >>critical hypocalcemia; for now hypokalemia, hypomagnesemia controlled/resolved (though supplemented past 24 hr) >pressors as needed to keep MAP > 65 >if uop not improving may need to consider diuretic challenge v. dialysis; family brought it up on their own > did d/w Dr Camacho who will discuss further w/ family > would start w/ temp cath if needed given fevers >agree with [facility] 150 mL q6h no major issues with fluid overload and/or lytes except Ca I and O charting. Daily renal panel and CBC. maintain good hemodynamics. Hold metformin, Jardiance, Lisinopril. No NSAIDS, no contrast agents --------- 1600 Ca reveiewed adn 6.2 > will give another 3 gm IV Ca; suggest continuing q4h [id number] and aggressive repletion until ca consistently > lower limit of normal on 3 checks (3) Sepsis: Plan: Source is diabetic Ulcer/OM with recent complications now +/- aspiration w/ TF versus other? >>he did have C glabrata >100K on urine cx at admission and had thrush at [facility] > ordered fungal blood cx; smear negative >LP deferred for now while pending MS tanesha (4) Encephalopathy chronic: Plan: chronic, eg, multiple days; since I started service on 08/20 >> withdraws to painful stim only one month ago this pt was working/ living independently confused/ sluggish but awake on 08/13 arrival > knew name and that was in hospital; had been sent d/t F, AMS by 08/16 neuro c/s for encephalopathy > difficult to arouse at that time but arouseable, would say name since then 08/20 my arrival and per RN report from 08/19, withdraws to painful stim only >> ?multifactorial from hypercalcemia plus other? intubated evening 08/21 (5) Hypercalcemia: Plan: RESOLVED after low dose bisphosphonate; hopefully his MS will improve with lower calcium MONITOR for hypocalcemia, which he had in [facility] corrected Ca 13.8, Ca 12.8 on 08/20; Ca 12.4 on 08/21; Ca 9.4 on 08/22 25 OH D 26; phos 3.9 PTH 7 on 08/19 calcitonin IM 400 units q 12h x 2 days - started 08/20 >>stopped calcitonin lower dose zoledronic acid > 2 mg IV (reduced dose run slowly over 60 min) given 08/20 no obvious meds causing this, at least not this admission; notably at [facility] admission 08/02-08/11 he was consistently hypophosphatemic and hypocalcemic hold IVF for now >>await PTHrp <<not likely to be helpful; done for completeness >>pls check phos, mag, ca daily Plan I spent a total of 70 minutes coordinating, documenting, and providing care for this patient excluding time spent in the performance of separately billed services. This included personally reviewing all current laboratories and imaging studies, medication reconciliation, outpatient chart review, and discussion with other physicians, with nursing, and as applicable with the patient and family. Admission and Anticipated Discharge Date Admission Date: August 14, 2024 Subjective defervesced; back on levo today. no purposeful movement and needing more not less sedatoin. 950 UOP yesterday w/o diuretics Review of Systems 2 Review of Systems: Unobtainable due to endotracheal tube and Unobtainable due to reduced consciousness Physical Exam 2 Constitutional: well developed (intubated), well nourished and + altered mental status; no acute distress ENMT: Ears: no external ear abnormality Nose: no external nose abnormality Mouth: + dry oral mucous membranes Neck: no nuchal rigidity Respiratory: normal respiratory effort; no respiratory distress A uscultation: + diminished lung sounds and + rhonchi Cardiovascular: Rate/Rhythm: regular rate and regular rhythm Extremities: + edema (1+ dependent) Gastrointestinal (Abdomen): Inspection/Auscultation: + abdomen distended and normal bowel sounds Percussion/Palpation: abdomen soft; abdomen nontender Skin: no rashes, warm and dry Results & Data Vital Signs (Past 12 Hours) Vital Signs Temp Pulse Resp BP Pulse Ox O2 Del Method FiO2 08/24/24 08:22 40 08/24/24 08:22 98 H 135/74 08/24/24 08:00 36.7 C 98 H 25 H 94 08/24/24 08:00 135/74 08/24/24 08:00 135/74 08/24/24 07:57 36.7 C 97 H 20 95 08/24/24 07:33 36.6 C 96 H 23 95 08/24/24 07:18 97 H 22 95 40 08/24/24 07:15 36.5 C 97 H 22 95 08/24/24 07:06 36.4 C L 100 H 27 H 92 08/24/24 06:54 36.2 C L 96 H 23 92 08/24/24 06:48 99 H 08/24/24 06:36 35.4 C L 100 H 28 H 93 08/24/24 06:18 33.3 C L 96 H 24 95 08/24/24 06:03 37.6 C H 88 19 96 08/24/24 06:01 120/62 08/24/24 06:01 120/62 08/24/24 06:01 120/08/24/24 06:01 12008/24/24 05:54 37.6 C H 88 19 97 08/24/24 05:39 37.7 C H 87 20 98 08/24/24 05:15 37.6 C H 90 25 H 97 08/24/24 04:54 37.7 C H 91 H 24 96 08/24/24 04:39 129/68 96 Mechanical Vent 40 08/24/24 04:26 95 H 26 H 91 40 08/24/24 04:24 37.7 C H 90 22 94 08/24/24 04:21 37.7 C H 92 H 23 93 08/24/24 04:06 94 H 28 H 94 Mechanical Vent 40 08/24/24 04:00 40 08/24/24 04:00 92 H 08/24/24 03:45 94 H 33 H 92 08/24/24 03:15 37.6 C H 90 26 H 97 08/24/24 03:00 37.6 C H 90 26 H 97 08/24/24 03:00 106/62 08/24/24 03:00 106/62 08/24/24 02:30 37.6 C H 94 H 36 H 91 08/24/24 02:21 93 H 30 H 94 08/24/24 02:03 92 H 24 97 08/24/24 02:00 111/08/24/24 02:00 11108/24/24 02:00 11108/24/24 02:00 11108/24/24 01:42 37.5 C 96 H 28 H 96 08/24/24 01:36 37.5 C 94 H 28 H 95 08/24/24 01:19 92 H 08/24/24 01:18 37.6 C H 94 H 25 H 94 08/24/24 01:13 116/75 08/24/24 01:13 116/75 08/24/24 01:12 37.6 C H 95 H 29 H 95 08/24/24 01:06 37.6 C H 96 H 33 H 94 08/24/24 00:58 87 18 97 40 08/24/24 00:45 105 H 33 H 93 08/24/24 00:30 37.5 C 94 H 31 H 93 Mechanical Vent 40 08/24/24 00:15 37.6 C H 93 H 26 H 93 08/24/24 00:00 107/59 L 08/24/24 00:00 107/59 L 08/24/24 00:00 107/59 L 08/24/24 00:00 107/59 L 08/24/24 00:00 37.6 C H 91 H 22 93 Mechanical Vent 40 02/28/25 00:00 40 08/24/24 00:00 87 08/23/24 23:54 37.6 C H 91 H 25 H 94 08/23/24 23:30 37.5 C 90 27 H 100 Laboratory Results 08/24/24 04:14 08/24/24 08:10 Ca 6.8 iCa 0.79 phos 2 iPTH 195
[2024-08-24] MEDS: PROPOFOL IV EMULSION 10 MG/ML 100 ML VIAL IV ONE (11:55)
[2024-08-24] MEDS: TUBE FEEDING WATER FLUSH NG SCH (12:00)
--- NOTE | 2024-08-24 12:02 | Hospitalist Progress Note ---
Date of Service August 24, 2024 Assessment & Plan (1) Sepsis: Plan: Per previous hospitalist w/ addendum 63-yo M w/ type 2 diabetes, diabetic ulcer of right midfoot, dyslipidemia, hypophosphatemia, hypertension, history of C. difficile colitis, oral thrush, cellulitis of right leg, abscess of right foot, absent seizures, history of lung cancer, was sent in by [facility] rehab because of confusion and fevers. Patient was in [facility] from 08/02/2024 to 08/11/2024. He was admitted to the [facility] for right foot swelling and redness and fevers. And right foot x-ray showed healed fracture through the midshaft of second metatarsal bone with calcified bridging callus. Pes planus. He was admitted for right foot infection. MRI of the foot was negative for osteomyelitis and showed cellulitis and possible abscess. Status post I&D by podiatry at bedside on August 03 with a deep purulence obtained and sent for culture. Status post I&D with podiatry for sepsis on August 06 and probe to bone very favorable and no clear abscess as suggested by CT scan. During hospital stay he was also completed Tamiflu for influenza. ID suggested Ancef until September 17 and to treat as osteomyelitis for MSSA on wound cultures with 6 weeks of IV antibiotics. On August 07 patient had rash thought to be from Ancef. Rash was worsening after second dose of Ancef and patient was having fevers that thought to be lined up from Ancef doses and was thought possible drug fever. And ID recommended IV Vanco via PICC line. Vancomycin dosing goal AUC 400-600 Mg/liter/hour. And tanesha alberts was discharged to [facility] on 08/11/2024. At [facility] patient was still having fevers and shortness of breath and erythema around his wound ,does not appear to be receding thought to be spreading. [facility] made ID aware. As per the med rec from the [facility] seems patient had Rocephin. And was sent to our ER today because of fever and altered mental status. Patient can tell his name. Knows that he is in the hospital. Could tell his date of . But could not tell current dates. Denies any cough. Denies headache. Denies chest pain. Denies shortness of breath. Denies belly pain. Status post Sarmiento in the ER. Patient seems poor historian at this time. No sacral ulcer seen. 08/21/[address] Canchola - Code Blue Patient noted to be bradycardic and pale while getting oral care today. Patient was noted to have heart rate in 50-40s and became tachypneic. Prior to the episode, tube feeds were held for oral care per RN. Initially code purple was called and later changed to CODE BLUE and ACLS protocol was performed. Patient required CPR and needed intubation for respiratory support. IV epinephrine was administered per protocol. Chest x-ray, ABG, blood work ordered post intubation. Patient was will be transferred to ICU for further management. Critical care consulted. Updated patient's family over the phone. Sepsis Bilateral lower extremity cellulitis Right foot diabetic ulcer Recently on [facility] was placed on IV Vanco for 6 weeks until September 17 to treat his osteomyelitis though MRI was negative and abscess was I&D by podiatry at [facility] --Right Foot X ray: No definite radiographic evidence of osteomyelitis as described. --Venous Doppler:No evidence of deep venous thrombus within the bilateral lower extremities. --Arterial Doppler:Negative right lower extremity arterial evaluation. No occlusion or significant hemodynamic stenosis with multiphasic waveforms throughout. --CT ABD:No bowel obstruction. Severe hepatic steatosis. Hepatomegaly. Anasarca. Small amount of ascites within the pelvis. -- Blood cultures negative to date -- Urine culture: Heather glabrata IV cefepime discontinued as recommended by infectious disease/neurology Received IV fluids, monitor volume status closely Avoid IV Vanco as trough level high, JUANA Appreciate infectious disease input: Once Vanco trough drops < 15 will start the patient on IV daptomycin. (Will renally dose IV daptomycin through 09/17/24) Appreciate Podiatry Input : Given ongoing treatment, will defer MRI foot for now Continue local wound care Aspiration precautions Vanco trough 14.2 on 08/20/[address] Canchola Discussed with ID on 08/21: Recommends to change Dapto, Zosyn to meropenem today. Recommends lumbar puncture. Hold antivirals for lumbar puncture per ID Consulted IR for lumbar puncture tomorrow 08/22 Currently pt intubated, s/p code blue episode as above Pt on vasopressors, febrile 08/24 Reached out to ID for further recommendations - when finished w/ meropenem - cont. w/ daptomycin for osteomyelitis Acute metabolic encephalopathy Likely due to above infection/meds DD: Meningitis, encephalitis Suspected urinary tract infection--Less likely --Head CT:No acute findings in the head/brain. --Urine culture: as above --MRI Brain:No evidence of acute or subacute infarct. Reorient frequently to minimize delirium Repeat CT head showed no acute process -Normal ammonia level -Drug screen negative -VBG showed no hypercarbia -TSH elevated, normal free T4 --Thiamine B1 level pending -EEG: This is an abnormal routine EEG in a patient w altered mental state due to 1. Generalized background slowing suggestive of non specific encephalopathy, 2. Triphasic waves which are non specific but commonly seen in metabolic encephalopathies. --Lamictal levels 6.6 --Elevated INR--received vitamin K Could not get lumbar puncture initially due to elevated INR/patient agitated INR 1.4 on 08/23 Valproic acid held due to rising LFTs. Neurology aware Monitor ammonia levels, received a dose of lactulose on 08/20/2024 Appreciate neurology input. Acute kidney injury likely ATN/toxic secondary to infection, vancomycin/AIN Cr: 4.4>4.1>4.0> 3.8 Creatinine was 1.6 on 08/12/2024 --CT ABD:Mild nonspecific perinephric stranding. No hydronephrosis. Simple 2 cm left renal cyst. No follow-up of this simple cyst is necessary. 08/22 -- current Cr 4.19 - nephrology/ critical care discussed poss. HD w/pt's family 08/24 Cr 3.9 Avoid nephrotoxic agents as able Monitor renal function, urinary output Bladder scan as needed Metformin, Jardiance, lisinopril on hold Avoid NSAIDs Monitor for volume status Received IV fluid Appreciate nephrology input Hypercalcemia --> now hypocalcemia (after hypercalcemia treatment) Hypernatremia Likely due to dehydration Low PTH, vitamin D levels PTH related peptide pending IV fluids as recommended by nephrology Monitor electrolytes closely Also on free water flushes through NG tube Started on calcitonin, Zometa Monitor calcium levels Calcium 12.4 on 08/21 - > (08/22) 9.4 -> 7.4 Sodium 149 on 08/21 -> now 150/148 (essentially unchanged) 08/23 calcium now down (Hypocalcemia) after treatment, ca being replaced - dis cussed w/ nephrology 08/24 calcium continues to be critically low, 5.5 today, needs replacement Unclear cause of hypercalcemia Transaminitis Likely due to sepsis, fatty liver --CT ABD:Hepatic steatosis. Hepatomegaly. Minimal free fluid around the liver and in the pelvis. --Hepatitis panel pending --Gall Bladder USD: Trace ascites. Normal sonographic appearance of the gallbladder. Large fatty liver. --Elevated INR Monitor LFTs Hold Lipitor for now GI following Valproate held due to worsening LFTs Hyponatremia--Resolved Currently hypernatremic as above Anemia Iron deficiency anemia Anemia of chronic disease No obvious signs of bleeding Vit B12, folate levels reviewed Monitor CBC Started on iron supplements Hypertension Hold lisinopril Continue atenolol with holding parameters Monitor DM II Hold home medications Adjust insulin per protocol to minimize hypoglycemic episodes Monitor blood glucose levels Hyperlipidemia Hold statin due to elevated LFTs History of seizures On Lamictal Monitor Remote history of lung cancer Treated with chemo as per records DVT Px: Heparin SQ Code Status Full code Disposition- currently ICU, prognosis guarded Admission and Anticipated Discharge Date Admission Date: August 14, 2024 Subjective Pt seen in follow up Pt was code blue/ cardiac arrest on 08/21 evening -> now in ICU Prior to this admission pt in [place] with diabetic foot / ? abscess/ cellulitis ? osteo Admitted here with JUANA, AMS, also elevated LFTs Intubated, on pressors, febrile Does not respond to voice or tactile stimuli at this time. Discussed w/ RN Nephrology, cardiology, GI, ID consulted Discussed poss. HD in the future Discussed w/ nephrology - treatment for hypercalcemia -> now hypocalcemic, Ca replaced. Needs Ca replacement today again Diarrhea, hx of c. diff - stool tested negat. c. diff gene Discussed w/ ID today - after meropenem course, start daptomycin for OM Review of Systems Review of Systems: Unobtainable due to cognitive status and Unobtainable due to endotracheal tube Physical Exam Physical Exam: General Appearance: Moderately built and nourished, intubated Head: normocephalic, Atraumatic Neck: + IJ placed Respiratory/Chest: decreased air entry b/l, no wheezing Cardiovascular: S1, S2, No murmur Abdomen/GI:Soft, Bowel sounds present Extremities/Musculoskeletal:normal inspection, 1-2+ B/L LE edema, erythema, R great toe s/p amputation, R foot ulcer Neurologic/Psych: does not open eyes to voice or tactile stimuli on my exam, does not follow commands Skin: warm, dry Results & Data Results & Data Vital Signs (Past 12 Hours) Vital Signs Temp Pulse Resp BP Pulse Ox O2 Del Method FiO2 08/24/24 08:22 40 08/24/24 08:22 98 H 135/74 08/24/24 08:00 36.7 C 98 H 25 H 94 08/24/24 08:00 135/74 08/24/24 08:00 135/74 08/24/24 07:57 36.7 C 97 H 20 95 08/24/24 07:33 36.6 C 96 H 23 95 08/24/24 07:18 97 H 22 95 40 08/24/24 07:15 36.5 C 97 H 22 95 08/24/24 07:06 36.4 C L 100 H 27 H 92 08/24/24 06:54 36.2 C L 96 H 23 92 08/24/24 06:48 99 H 08/24/24 06:36 35.4 C L 100 H 28 H 93 08/24/24 06:18 33.3 C L 96 H 24 95 08/24/24 06:03 37.6 C H 88 19 96 08/24/24 06:01 120/62 08/24/24 06:01 120/62 08/24/24 06:01 120/62 08/24/24 06:01 120/62 08/24/24 05:54 37.6 C H 88 19 97 08/24/24 05:39 37.7 C H 87 20 98 08/24/24 05:15 37.6 C H 90 25 H 97 08/24/24 04:54 37.7 C H 91 H 24 96 08/24/24 04:39 129/68 96 Mechanical Vent 40 08/24/24 04:26 95 H 26 H 91 40 08/24/24 04:24 37.7 C H 90 22 94 08/24/24 04:21 37.7 C H 92 H 23 93 08/24/24 04:06 94 H 28 H 94 Mechanical Vent 40 08/24/24 04:00 40 08/24/24 04:00 92 H 08/24/24 03:45 94 H 33 H 92 08/24/24 03:15 37.6 C H 90 26 H 97 08/24/24 03:00 37.6 C H 90 26 H 97 08/24/24 03:00 08/24/24 03:00 08/24/24 02:30 37.6 C H 94 H 36 H 91 08/24/24 02:21 93 H 30 H 94 08/24/24 02:03 92 H 24 97 08/24/24 02:00 08/24/24 02:00 08/24/24 02:00 08/24/24 02:00 08/24/24 01:42 37.5 C 96 H 28 H 96 08/24/24 01:36 37.5 C 94 H 28 H 95 08/24/24 01:19 92 H 08/24/24 01:18 37.6 C H 94 H 25 H 94 08/24/24 01:13 116/08/24/24 01:13 116/08/24/24 01:12 37.6 C H 95 H 29 H 95 08/24/24 01:06 37.6 C H 96 H 33 H 94 08/24/24 00:58 87 18 97 40 08/24/24 00:45 105 H 33 H 93 08/24/24 00:30 37.5 C 94 H 31 H 93 Mechanical Vent 40 08/24/24 00:15 37.6 C H 93 H 26 H 93 Laboratory Results 08/24/24 08/24/24 08/24/24 Range/Units 11:10 08:59 08:10 WBC (4.8-10.8) K/ul RBC (4.70-6.10) M/uL Hgb (14.0-18.0) g/dl Hct (42.0-52.0) % MCV (80.0-100.0) fL MCH (25.0-34.0) pg MCHC (32.0-36.0) g/dL RDW Std Deviation (36.4-46.3) fL RDW Coeff of Eladio (11.5-14.5) % Plt Count (130-400) K/uL MPV (9.4-12.4) fL Immature Gran % (Auto) % Neut % (Auto) % Lymph % (Auto) % [place] % (Auto) % Eos % (Auto) % Baso % (Auto) % Neut # (Auto) (1.40-6.50) K/uL Lymph # (Auto) (1.20-3.40) K/uL [place] # (Auto) (0.11-0.59) K/uL Eos # (Auto) (0.00-0.50) K/uL Baso # (Auto) (0.00-0.20) K/uL Immature Gran # (Auto) (0.01-0.20) K/uL Absolute Nucleated RBC (0.00-0.12) K/uL Nucleated RBC % (auto) % Polychromasia Sodium 143 (136-145) mmol/L Potassium 4.2 (3.5-5.1) mmol/L Chloride 114 H (98-107) mmol/L Carbon Dioxide 25 (21-32) mmol/L Anion Gap 4 (3-11) BUN 53 H (6-23) mg/dl Creatinine 3.75 H (0.6-1.4) mg/dl Est Cr Clr Drug Dosing 22.7 ml/min eGFR 17.10 BUN/Creatinine Ratio 14.1 (10-20) Glucose 153 H (70-99(Fasting)) mg/dl POC Glucose (70-99) mg/dl POC Glucose (other) 158 H 171 H (70-99) mg/dl Calcium 6.8 L (8.6-10.3) mg/dl Ionized Calcium (1.12-1.32) mmol/L Phosphorus (2.5-4.9) mg/dl Magnesium 2.3 (1.7-2.4) mg/dl Total Bilirubin (0.2-1.0) mg/dl Direct Bilirubin (0-0.2) mg/dl AST (13-39) U/L ALT (7-52) U/L Alkaline Phosphatase (34-104) U/L Total Protein (6.0-8.3) gm/dl Albumin (3.4-5.0) gm/dl PTH Intact 195.4 H (12.0-88.0) pg/ml Stl C. diff Tox B Gene (Neg) 08/24/24 08/24/24 08/24/24 Range/Units 06:37 04:47 04:14 WBC 16.79 H (4.8-10.8) K/ul RBC 2.90 L (4.70-6.10) M/uL Hgb 8.5 L (14.0-18.0) g/dl Hct 27.3 L (42.0-52.0) % MCV 94.1 (80.0-100.0) fL MCH 29.3 (25.0-34.0) pg MCHC 31.1 L (32.0-36.0) g/dL RDW Std Deviation 57.3 H (36.4-46.3) fL RDW Coeff of Eladio 19.5 H (11.5-14.5) % Plt Count 288 (130-400) K/uL MPV 9.6 (9.4-12.4) fL Immature Gran % (Auto) 5.7 % Neut % (Auto) 81.1 % Lymph % (Auto) 9.4 % [place] % (Auto) 3.5 % Eos % (Auto) 0.1 % Baso % (Auto) 0.2 % Neut # (Auto) 13.65 H (1.40-6.50) K/uL Lymph # (Auto) 1.57 (1.20-3.40) K/uL [place] # (Auto) 0.58 (0.11-0.59) K/uL Eos # (Auto) 0.01 (0.00-0.50) K/uL Baso # (Auto) 0.03 (0.00-0.20) K/uL Immature Gran # (Auto) 0.95 H (0.01-0.20) K/uL Absolute Nucleated RBC 0.37 H (0.00-0.12) K/uL Nucleated RBC % (auto) 2.2 % Polychromasia 1+ Sodium 143 (136-145) mmol/L Potassium 3.5 (3.5-5.1) mmol/L Chloride 111 H (98-107) mmol/L Carbon Dioxide 26 (21-32) mmol/L Anion Gap 6 (3-11) BUN 54 H (6-23) mg/dl Creatinine 4.00 H (0.6-1.4) mg/dl Est Cr Clr Drug Dosing 21.1 ml/min eGFR 15.82 BUN/Creatinine Ratio 13.5 (10-20) Glucose 147 H (70-99(Fasting)) mg/dl POC Glucose 150 H 138 H (70-99) mg/dl POC Glucose (other) (70-99) mg/dl Calcium 5.6 L* (8.6-10.3) mg/dl Ionized Calcium 0.79 L (1.12-1.32) mmol/L Phosphorus 2.0 L (2.5-4.9) mg/dl Magnesium 1.9 (1.7-2.4) mg/dl Total Bilirubin 4.3 H (0.2-1.0) mg/dl Direct Bilirubin 2.9 H (0-0.2) mg/dl AST 247 H (13-39) U/L ALT 63 H (7-52) U/L Alkaline Phosphatase 409 H (34-104) U/L Total Protein 5.7 L (6.0-8.3) gm/dl Albumin 1.9 L (3.4-5.0) gm/dl PTH Intact (12.0-88.0) pg/ml Stl C. diff Tox B Gene (Neg) 08/24/24 08/24/24 08/24/24 Range/Units 03:34 02:45 01:39 WBC (4.8-10.8) K/ul RBC (4.70-6.10) M/uL Hgb (14.0-18.0) g/dl Hct (42.0-52.0) % MCV (80.0-100.0) fL MCH (25.0-34.0) pg MCHC (32.0-36.0) g/dL RDW Std Deviation (36.4-46.3) fL RDW Coeff of Eladio (11.5-14.5) % Plt Count (130-400) K/uL MPV (9.4-12.4) fL Immature Gran % (Auto) % Neut % (Auto) % Lymph % (Auto) % [place] % (Auto) % Eos % (Auto) % Baso % (Auto) % Neut # (Auto) (1.40-6.50) K/uL Lymph # (Auto) (1.20-3.40) K/uL [place] # (Auto) (0.11-0.59) K/uL Eos # (Auto) (0.00-0.50) K/uL Baso # (Auto) (0.00-0.20) K/uL Immature Gran # (Auto) (0.01-0.20) K/uL Absolute Nucleated RBC (0.00-0.12) K/uL Nucleated RBC % (auto) % Polychromasia Sodium (136-145) mmol/L Potassium (3.5-5.1) mmol/L Chloride (98-107) mmol/L Carbon Dioxide (21-32) mmol/L Anion Gap (3-11) BUN (6-23) mg/dl Creatinine (0.6-1.4) mg/dl Est Cr Clr Drug Dosing ml/min eGFR BUN/Creatinine Ratio (10-20) Glucose (70-99(Fasting)) mg/dl POC Glucose 144 H 150 H 158 H (70-99) mg/dl POC Glucose (other) (70-99) mg/dl Calcium (8.6-10.3) mg/dl Ionized Calcium (1.12-1.32) mmol/L Phosphorus (2.5-4.9) mg/dl Magnesium (1.7-2.4) mg/dl Total Bilirubin (0.2-1.0) mg/dl Direct Bilirubin (0-0.2) mg/dl AST (13-39) U/L ALT (7-52) U/L Alkaline Phosphatase (34-104) U/L Total Protein (6.0-8.3) gm/dl Albumin (3.4-5.0) gm/dl PTH Intact (12.0-88.0) pg/ml Stl C. diff Tox B Gene (Neg) 08/24/24 08/23/24 08/23/24 Range/Units 00:28 23:47 22:49 WBC (4.8-10.8) K/ul RBC (4.70-6.10) M/uL Hgb (14.0-18.0) g/dl Hct (42.0-52.0) % MCV (80.0-100.0) fL MCH (25.0-34.0) pg MCHC (32.0-36.0) g/dL RDW Std Deviation (36.4-46.3) fL RDW Coeff of Eladio (11.5-14.5) % Plt Count (130-400) K/uL MPV (9.4-12.4) fL Immature Gran % (Auto) % Neut % (Auto) % Lymph % (Auto) % [place] % (Auto) % Eos % (Auto) % Baso % (Auto) % Neut # (Auto) (1.40-6.50) K/uL Lymph # (Auto) (1.20-3.40) K/uL [place] # (Auto) (0.11-0.59) K/uL Eos # (Auto) (0.00-0.50) K/uL Baso # (Auto) (0.00-0.20) K/uL Immature Gran # (Auto) (0.01-0.20) K/uL Absolute Nucleated RBC (0.00-0.12) K/uL Nucleated RBC % (auto) % Polychromasia Sodium 142 (136-145) mmol/L Potassium 4.0 (3.5-5.1) mmol/L Chloride 111 H (98-107) mmol/L Carbon Dioxide 26 (21-32) mmol/L Anion Gap 5 (3-11) BUN 54 H (6-23) mg/dl Creatinine 4.12 H (0.6-1.4) mg/dl Est Cr Clr Drug Dosing 20.4 ml/min eGFR 15.27 BUN/Creatinine Ratio 13.1 (10-20) Glucose 148 H (70-99(Fasting)) mg/dl POC Glucose 122 H 119 H (70-99) mg/dl POC Glucose (other) (70-99) mg/dl Calcium 6.0 L (8.6-10.3) mg/dl Ionized Calcium (1.12-1.32) mmol/L Phosphorus (2.5-4.9) mg/dl Magnesium 2.0 (1.7-2.4) mg/dl Total Bilirubin (0.2-1.0) mg/dl Direct Bilirubin (0-0.2) mg/dl AST (13-39) U/L ALT (7-52) U/L Alkaline Phosphatase (34-104) U/L Total Protein (6.0-8.3) gm/dl Albumin (3.4-5.0) gm/dl PTH Intact (12.0-88.0) pg/ml Stl C. diff Tox B Gene (Neg) 08/23/24 08/23/24 08/23/24 Range/Units 21:49 20:50 19:46 WBC (4.8-10.8) K/ul RBC (4.70-6.10) M/uL Hgb (14.0-18.0) g/dl Hct (42.0-52.0) % MCV (80.0-100.0) fL MCH (25.0-34.0) pg MCHC (32.0-36.0) g/dL RDW Std Deviation (36.4-46.3) fL RDW Coeff of Eladio (11.5-14.5) % Plt Count (130-400) K/uL MPV (9.4-12.4) fL Immature Gran % (Auto) % Neut % (Auto) % Lymph % (Auto) % [place] % (Auto) % Eos % (Auto) % Baso % (Auto) % Neut # (Auto) (1.40-6.50) K/uL Lymph # (Auto) (1.20-3.40) K/uL [place] # (Auto) (0.11-0.59) K/uL Eos # (Auto) (0.00-0.50) K/uL Baso # (Auto) (0.00-0.20) K/uL Immature Gran # (Auto) (0.01-0.20) K/uL Absolute Nucleated RBC (0.00-0.12) K/uL Nucleated RBC % (auto) % Polychromasia Sodium 142 (136-145) mmol/L Potassium 4.3 (3.5-5.1) mmol/L Chloride 110 H (98-107) mmol/L Carbon Dioxide 26 (21-32) mmol/L Anion Gap 6 (3-11) BUN 55 H (6-23) mg/dl Creatinine 4.14 H (0.6-1.4) mg/dl Est Cr Clr Drug Dosing 20.4 ml/min eGFR 15.18 BUN/Creatinine Ratio 13.3 (10-20) Glucose 119 H (70-99(Fasting)) mg/dl POC Glucose 118 H 108 H 114 H (70-99) mg/dl POC Glucose (other) (70-99) mg/dl Calcium 6.0 L (8.6-10.3) mg/dl Ionized Calcium 0.82 L (1.12-1.32) mmol/L Phosphorus (2.5-4.9) mg/dl Magnesium 2.1 (1.7-2.4) mg/dl Total Bilirubin (0.2-1.0) mg/dl Direct Bilirubin (0-0.2) mg/dl AST (13-39) U/L ALT (7-52) U/L Alkaline Phosphatase (34-104) U/L Total Protein (6.0-8.3) gm/dl Albumin (3.4-5.0) gm/dl PTH Intact (12.0-88.0) pg/ml Stl C. diff Tox B Gene (Neg) 08/23/24 08/23/24 08/23/24 Range/Units 18:57 17:52 16:50 WBC (4.8-10.8) K/ul RBC (4.70-6.10) M/uL Hgb (14.0-18.0) g/dl Hct (42.0-52.0) % MCV (80.0-100.0) fL MCH (25.0-34.0) pg MCHC (32.0-36.0) g/dL RDW Std Deviation (36.4-46.3) fL RDW Coeff of Eladio (11.5-14.5) % Plt Count (130-400) K/uL MPV (9.4-12.4) fL Immature Gran % (Auto) % Neut % (Auto) % Lymph % (Auto) % [place] % (Auto) % Eos % (Auto) % Baso % (Auto) % Neut # (Auto) (1.40-6.50) K/uL Lymph # (Auto) (1.20-3.40) K/uL [place] # (Auto) (0.11-0.59) K/uL Eos # (Auto) (0.00-0.50) K/uL Baso # (Auto) (0.00-0.20) K/uL Immature Gran # (Auto) (0.01-0.20) K/uL Absolute Nucleated RBC (0.00-0.12) K/uL Nucleated RBC % (auto) % Polychromasia Sodium 143 (136-145) mmol/L Potassium 3.7 (3.5-5.1) mmol/L Chloride 109 H (98-107) mmol/L Carbon Dioxide 27 (21-32) mmol/L Anion Gap 7 (3-11) BUN 53 H (6-23) mg/dl Creatinine 4.17 H (0.6-1.4) mg/dl Est Cr Clr Drug Dosing 20.2 ml/min eGFR 15.05 BUN/Creatinine Ratio 12.7 (10-20) Glucose 122 H (70-99(Fasting)) mg/dl POC Glucose (70-99) mg/dl POC Glucose (other) 114 H 118 H (70-99) mg/dl Calcium 6.0 L (8.6-10.3) mg/dl Ionized Calcium (1.12-1.32) mmol/L Phosphorus (2.5-4.9) mg/dl Magnesium (1.7-2.4) mg/dl Total Bilirubin (0.2-1.0) mg/dl Direct Bilirubin (0-0.2) mg/dl AST (13-39) U/L ALT (7-52) U/L Alkaline Phosphatase (34-104) U/L Total Protein (6.0-8.3) gm/dl Albumin (3.4-5.0) gm/dl PTH Intact (12.0-88.0) pg/ml Stl C. diff Tox B Gene (Neg) 08/23/24 08/23/24 08/23/24 Range/Units 15:54 14:45 13:50 WBC (4.8-10.8) K/ul RBC (4.70-6.10) M/uL Hgb (14.0-18.0) g/dl Hct (42.0-52.0) % MCV (80.0-100.0) fL MCH (25.0-34.0) pg MCHC (32.0-36.0) g/dL RDW Std Deviation (36.4-46.3) fL RDW Coeff of Eladio (11.5-14.5) % Plt Count (130-400) K/uL MPV (9.4-12.4) fL Immature Gran % (Auto) % Neut % (Auto) % Lymph % (Auto) % [place] % (Auto) % Eos % (Auto) % Baso % (Auto) % Neut # (Auto) (1.40-6.50) K/uL Lymph # (Auto) (1.20-3.40) K/uL [place] # (Auto) (0.11-0.59) K/uL Eos # (Auto) (0.00-0.50) K/uL Baso # (Auto) (0.00-0.20) K/uL Immature Gran # (Auto) (0.01-0.20) K/uL Absolute Nucleated RBC (0.00-0.12) K/uL Nucleated RBC % (auto) % Polychromasia Sodium (136-145) mmol/L Potassium (3.5-5.1) mmol/L Chloride (98-107) mmol/L Carbon Dioxide (21-32) mmol/L Anion Gap (3-11) BUN (6-23) mg/dl Creatinine (0.6-1.4) mg/dl Est Cr Clr Drug Dosing ml/min eGFR BUN/Creatinine Ratio (10-20) Glucose (70-99(Fasting)) mg/dl POC Glucose 139 H (70-99) mg/dl POC Glucose (other) 121 H (70-99) mg/dl Calcium (8.6-10.3) mg/dl Ionized Calcium (1.12-1.32) mmol/L Phosphorus (2.5-4.9) mg/dl Magnesium (1.7-2.4) mg/dl Total Bilirubin (0.2-1.0) mg/dl Direct Bilirubin (0-0.2) mg/dl AST (13-39) U/L ALT (7-52) U/L Alkaline Phosphatase (34-104) U/L Total Protein (6.0-8.3) gm/dl Albumin (3.4-5.0) gm/dl PTH Intact (12.0-88.0) pg/ml Stl C. diff Tox B Gene Negative Cdiff Gene (Neg) 08/23/24 08/23/24 Range/Units 13:45 11:47 WBC (4.8-10.8) K/ul RBC (4.70-6.10) M/uL Hgb (14.0-18.0) g/dl Hct (42.0-52.0) % MCV (80.0-100.0) fL MCH (25.0-34.0) pg MCHC (32.0-36.0) g/dL RDW Std Deviation (36.4-46.3) fL RDW Coeff of Eladio (11.5-14.5) % Plt Count (130-400) K/uL MPV (9.4-12.4) fL Immature Gran % (Auto) % Neut % (Auto) % Lymph % (Auto) % [place] % (Auto) % Eos % (Auto) % Baso % (Auto) % Neut # (Auto) (1.40-6.50) K/uL Lymph # (Auto) (1.20-3.40) K/uL [place] # (Auto) (0.11-0.59) K/uL Eos # (Auto) (0.00-0.50) K/uL Baso # (Auto) (0.00-0.20) K/uL Immature Gran # (Auto) (0.01-0.20) K/uL Absolute Nucleated RBC (0.00-0.12) K/uL Nucleated RBC % (auto) % Polychromasia Sodium 145 (136-145) mmol/L Potassium 3.3 L (3.5-5.1) mmol/L Chloride 110 H (98-107) mmol/L Carbon Dioxide 27 (21-32) mmol/L Anion Gap 8 (3-11) BUN 52 H (6-23) mg/dl Creatinine 4.11 H (0.6-1.4) mg/dl Est Cr Clr Drug Dosing 20.5 ml/min eGFR 15.32 BUN/Creatinine Ratio 12.7 (10-20) Glucose 118 H (70-99(Fasting)) mg/dl POC Glucose (70-99) mg/dl POC Glucose (other) 132 H (70-99) mg/dl Calcium 5.4 L* (8.6-10.3) mg/dl Ionized Calcium (1.12-1.32) mmol/L Phosphorus (2.5-4.9) mg/dl Magnesium (1.7-2.4) mg/dl Total Bilirubin (0.2-1.0) mg/dl Direct Bilirubin (0-0.2) mg/dl AST (13-39) U/L ALT (7-52) U/L Alkaline Phosphatase (34-104) U/L Total Protein (6.0-8.3) gm/dl Albumin (3.4-5.0) gm/dl PTH Intact (12.0-88.0) pg/ml Stl C. diff Tox B Gene (Neg) Medications Administered Current Inpatient Medications Aspirin (Aspirin 81 Mg Chew) 81 mg NG DAILY ANDREI Stop: 09/18/24 08:59 Last Admin: 08/24/24 08:36 Dose: 81 mg Atenolol (Atenolol 50 Mg Tablet) 100 mg NG DAILY ANDREI Stop: 09/14/24 08:59 Last Admin: 08/22/24 07:47 Dose: Not Given Atorvastatin Calcium (Atorvastatin 20 Mg Tab) 20 mg PO DAILY ANDREI Stop: 09/14/24 08:59 Bisacodyl (Bisacodyl 10 Mg Supp) 10 mg VT DAILY PRN PRN Reason: Constipation Stop: 09/13/24 23:09 Calamine/Phenol (Menthol-Zinc Oxide 360 Appln/120 Gm Tube) 1 appln EXT DAILY ANDREI Stop: 09/17/24 15:14 Last Admin: 08/24/24 08:29 Dose: 1 appln Calcium Carbonate (Calcium Carbonate 1,250 Mg/5 Ml Udc) 1,250 mg NG TID ANDREI Stop: 09/22/24 08:59 Last Admin: 08/24/24 08:27 Dose: 1,250 mg Cyanocobalamin (Cyanocobalamin (B-12) 500 Mcg Tablet) 500 mcg NG DAILY ANDREI Stop: 09/14/24 08:59 Last Admin: 08/24/24 08:27 Dose: 500 mcg Dextrose (Dextrose 50% 50 Ml Syringe) 25 - 50 ml IV UD PRN; Protocol PRN Reason: Hypoglycemia Protocol Stop: 09/13/24 23:09 Last Admin: 08/21/24 21:58 Dose: 50 ml Enteral Nutritional Formula (Peptamen 1.5 Yovani 1,000 Ml Bag) 1,000 ml NG .See Protocol ANDREI; Protocol Stop: 09/23/24 09:59 Fentanyl Citrate (Fentanyl Bolus From Bag) 50 mcg IV Q60M PRN PRN Reason: Pain or Agitation Stop: 09/04/24 19:34 Last Admin: 08/24/24 03:45 Dose: 50 mcg Ferrous Sulfate (Ferrous Sulfate 325 Mg/7.4 Ml Udp) 325 mg NG DAILY [facility]RE[facility] Stop: 09/18/24 08:59 Last Admin: 08/24/24 08:28 Dose: 325 mg Glucagon (Glucagon For Inj 1 Mg Vial) 1 mg SQ UD PRN; Protocol PRN Reason: Hypoglycemia Protocol Stop: 09/13/24 23:09 Glucose (Glucose 40% Gel 15 Gm Tube) 15 - 30 gm PO UD PRN; Protocol PRN Reason: Hypoglycemia Protocol Stop: 09/13/24 23:09 Glucose (Glucose 10 Tab/Tube) 4 - 8 tab PO UD PRN; Protocol PRN Reason: Hypoglycemia Protocol Stop: 09/13/24 23:09 Heparin Sodium (Beef Lung) (Heparin 10 Unit/Ml 5 Ml Flush) 5 ml FLUSH PRN PRN PRN Reason: Flush Stop: 09/14/24 03:11 Last Admin: 08/18/24 10:08 Dose: 5 ml Heparin Sodium (Porcine) (Heparin Sod 5,000 Unit/0.5 Ml Vial) 5,000 units SQ Q8H [facility]RE[facility] Stop: 09/14/24 00:00 Last Admin: 08/24/24 08:36 Dose: 5,000 units Thiamine HCl 100 mg/ Syringe 10 mls @ 2 mls/min IV QAM [facility] Stop: 09/17/24 15:44 Last Admin: 08/24/24 08:27 Dose: 2 mls/min Meropenem 1,000 mg/ Syringe 20 mls @ 4 mls/min IV Q12H [facility]; Protocol Stop: 08/31/24 13:59 Last Admin: 08/24/24 01:41 Dose: 4 mls/min Acetaminophen (Ofirmev) 1,000 mg in 100 mls @ 400 mls/hr IV Q8H PRN PRN Reason: Pain or Fever Stop: 08/24/24 13:32 Last Infusion: 08/23/24 00:23 Dose: Infused Vasopressin 20 units/ Sodium (Chloride) 101 mls @ 0 mls/hr IV .Q0M [facility] Stop: 09/20/24 18:59 Last Infusion: 08/24/24 07:11 Dose: 0 unit/min, 0 mls/hr Fentanyl Citrate (Fentanyl Citrate) 2,500 mcg in 250 mls @ 17.5 mls/hr IV .[id number] [facility]; Protocol Stop: 09/04/24 19:44 Last Titration: 08/24/24 07:11 Dose: 175 mcg/hr, 17.5 mls/hr Norepinephrine Bitartrate (Levophed/D5w) 4 mg in 250 mls @ 6.525 mls/hr IV .Q24H [facility]; Protocol Stop: 09/20/24 19:59 Last Titration: 08/24/24 07:11 Dose: 0.02 mcg/kg/min, 6.5 mls/hr Pantoprazole Sodium (Protonix) 40 mg in 10 mls @ 5 mls/min IV DAILY [facility] Stop: 09/21/24 08:59 Last Admin: 08/24/24 08:27 Dose: 5 mls/min Hydrocortisone Sodium (Succinate 50 mg/ Syringe) 1 mls @ 4 mls/min IV Q12H [facility] Stop: 08/26/24 06:01 Hydrocortisone Sodium (Succinate 50 mg/ Syringe) 1 mls @ 4 mls/min IV Q24H [facility] Stop: 08/27/24 18:01 Insulin Human Regular 250 (units/ Sodium Chloride) 250 mls @ 3.7 mls/hr IV .Q24H [facility]; Protocol Stop: 09/21/24 13:44 Last Titration: 08/24/24 09:03 Dose: 3.7 units/hr, 3.7 mls/hr Propofol (Diprivan) 1,000 mg in 100 mls @ 11.376 mls/hr IV .Q8H48M [facility]; Protocol Stop: 08/27/24 10:29 Last Admin: 08/24/24 10:30 Dose: 20 mcg/kg/min, 11.4 mls/hr Calcium Gluconate () 1,000 mg in 60 mls @ 240 mls/hr IV Q15M [facility] Stop: 08/24/24 13:14 Insulin Aspart (Insulin Aspart Per Unit Charge) 0 units SC Q4 [facility] Stop: 09/21/24 16:59 Last Admin: 08/24/24 09:00 Dose: 5 units Ipratropium [place] (Ipratropium [place] Neb Soln 0.02% 0.5mg/2.5ml Vial) 0.5 mg INH QIDR PRN PRN Reason: Shortness Of Breath Or Wheezing Stop: 09/21/24 10:08 Lactobacillus Acidophilus (Advanced Probiotic 625 Mg Capsule) 1,250 mg PO DAILY ANDREI Stop: 09/14/24 08:59 Last Admin: 08/22/24 09:26 Dose: 1,250 mg Lamotrigine (Lamotrigine 100 Mg Tab) 100 mg PO BID [facility]; Protocol Stop: 09/14/24 08:59 Last Admin: 08/24/24 08:27 Dose: 100 mg Levalbuterol HCl (Levalbuterol 1.25 Mg/3 Ml Neb) 1.25 mg NEB QIDR PRN PRN Reason: Shortness Of Breath Or Wheezing Stop: 09/20/24 14:59 Miscellaneous (Carbohydrates For Hypoglycemia ) 15 - 30 gm PO UD PRN PRN Reason: Hypoglycemia Protocol Stop: 09/13/24 23:09 Multivitamins/Minerals (Multi Vit W/Minerals Liquid 15 Ml Udc) 15 ml NG QAM [facility] Stop: 09/18/24 08:59 Last Admin: 08/20/24 08:12 Dose: 15 ml Nitroglycerin (Nitroglycerin Sl 0.4 Mg/Tab Tab) 0.4 mg SL Q5M PRN PRN Reason: Chest Pain Stop: 09/13/24 23:09 Propofol (Propofol Bolus From Bag) 20 mg IV Q5M PRN PRN Reason: Sedation Stop: 08/27/24 10:20 Sterile Water (Tube Feeding Water Flush) 150 ml NG Q6H [facility] Stop: 09/23/24 11:59
--- NOTE | 2024-08-24 12:29 | Communication Note ---
Date of Service: August 24, 2024 No LP obtained by CCU team, no concern for [employer] infective process. sCa improved. -Discontinue Meropenem -Restart Daptomycin Daptomycin 6-10 mg/kg -If crcl >30 ml/min then administer daily, if <30 ml/min then administer q48hrs (adjust per renal function) -Continue Daptomycin through 09/17/24 as previously planned for treatment of OM of R. diabetic foot wound -Obtain CK now then once q2 weeks and CBC/CMP weekly until end of IV therapy -ID will sign off at this time Case discussed with ID attending Dr. Teresita Figueroa MD Infectious Disease PGY-5 [facility] I discussed the patient with Dr Figueroa and I agree with his assessment and treatment plan
[2024-08-24 12:34] LABS: BUN Creatinine Ratio 14.4 (10-20); Calcium 6.2 mg/dl (8.6-10.3); Creatinine Clr Calc Pharmacy 22.3 ml/min; Magnesium 2.3 mg/dl (1.7-2.4); Potassium 3.8 mmol/L (3.5-5.1)
[2024-08-24] MEDS: CALCIUM GLUCONATE 1,000 MG/60 ML BAG IV SCH ×3 (12:54→20:49)
--- NOTE | 2024-08-24 13:02 | Gastroenterology Progress Note ---
Date of Service August 24, 2024 Assessment & Plan (1) Transaminitis: Plan: Likely caused by medications/sepsis/recent cardiac arrest. - continue to trend LFTs. Admission and Anticipated Discharge Date Admission Date: August 14, 2024 Supervising Physician Co-Signing Physician Notes Worsening LFTs. I believe this is related to the a pre-existing condition and recent cardiac arrest. Levels are not suggestive of ischemic hepatitis. Ultrasound admission did not show biliary dilatation. He did have fatty liver and some trace ascites. With worsening LFTs recheck ultrasound. Dumas sign is negative on abdominal palpation. Patient opens eyes to voice. Denies pain on palpation in the right upper quadrant Subjective Some worsening of LFTs today. 08/24/24 t bili 4.3, d bili 2.9, ast 247, alt 63, alk phos 409. patient intubated. Review of Systems Review of Systems: Unobtainable due to cognitive status Physical Exam Gastrointestinal (Abdomen): soft, normal bowel sounds. Results & Data Results & Data Vital Signs (Past 12 Hours) Vital Signs Temp Pulse Resp BP Pulse Ox O2 Del Method FiO2 08/24/24 12:20 87 19 100 30 08/24/24 12:18 99.3 F 87 18 100 08/24/24 12:03 99.5 F 89 24 100 08/24/24 12:00 87 120/57 L 08/24/24 12:00 40 08/24/24 11:48 99.5 F 87 20 100 08/24/24 11:30 99.9 F H 89 20 98 08/24/24 11:18 100.0 F H 91 H 18 98 08/24/24 11:03 100.0 F H 94 H 22 97 08/24/24 10:45 94 H 23 97 08/24/24 10:33 98.2 F 28 H 98 08/24/24 10:21 98.2 F 91 H 21 98 08/24/24 10:03 98.4 F 93 H 22 97 08/24/24 10:00 95/53 L 08/24/24 09:51 98.4 F 97 H 22 97 08/24/24 09:33 98.4 F 105 H 22 95 08/24/24 09:15 98.1 F 99 H 23 97 08/24/24 09:09 98.1 F 106 H 26 H 96 08/24/24 09:00 121/76 08/24/24 08:57 98.1 F 99 H 25 H 96 08/24/24 08:45 98.1 F 96 H 17 96 08/24/24 08:39 98.2 F 97 H 17 95 08/24/24 08:22 40 08/24/24 08:22 98 H 135/74 08/24/24 08:21 98.6 F 100 H 22 94 08/24/24 08:00 98.1 F 98 H 25 H 94 08/24/24 08:00 135/74 08/24/24 08:00 135/74 08/24/24 07:57 98.1 F 97 H 20 95 08/24/24 07:33 97.9 F 96 H 23 95 08/24/24 07:18 97 H 22 95 40 08/24/24 07:15 97.7 F 97 H 22 95 08/24/24 07:06 97.5 F L 100 H 27 H 92 08/24/24 06:54 97.2 F L 96 H 23 92 08/24/24 06:48 99 H 08/24/24 06:36 95.7 F L 100 H 28 H 93 08/24/24 06:18 91.9 F L 96 H 24 95 08/24/24 06:03 99.7 F H 88 19 96 08/24/24 06:01 12008/24/24 06:01 12008/24/24 06:01 120/08/24/24 06:01 12008/24/24 05:54 99.7 F H 88 19 97 08/24/24 05:39 99.9 F H 87 20 98 08/24/24 05:15 99.7 F H 90 25 H 97 08/24/24 04:54 99.9 F H 91 H 24 96 08/24/24 04:39 129/68 96 Mechanical Vent 40 08/24/24 04:26 95 H 26 H 91 40 08/24/24 04:24 99.9 F H 90 22 94 08/24/24 04:21 99.9 F H 92 H 23 93 08/24/24 04:06 94 H 28 H 94 Mechanical Vent 40 08/24/24 04:00 40 08/24/24 04:00 92 H 08/24/24 03:45 94 H 33 H 92 08/24/24 03:15 99.7 F H 90 26 H 97 08/24/24 03:00 99.7 F H 90 26 H 97 08/24/24 03:00 10608/24/24 03:00 10608/24/24 02:30 99.7 F H 94 H 36 H 91 08/24/24 02:21 93 H 30 H 94 08/24/24 02:03 92 H 24 97 08/24/24 02:00 08/24/24 02:00 08/24/24 02:00 08/24/24 02:00 08/24/24 01:42 99.5 F 96 H 28 H 96 08/24/24 01:36 99.5 F 94 H 28 H 95 08/24/24 01:19 92 H 08/24/24 01:18 99.7 F H 94 H 25 H 94 08/24/24 01:13 116/75 08/24/24 01:13 116/75 08/24/24 01:12 99.7 F H 95 H 29 H 95 08/24/24 01:06 99.7 F H 96 H 33 H 94 Coding Level of Care Code 75608 SUB INP/OBS CARE 07/21MIN Diagnoses Transaminitis R74.01
[2024-08-24 16:17] LABS: Calcium 6.2 mg/dl (8.6-10.3); Creatinine Clr Calc Pharmacy 22.1 ml/min; Magnesium 2.3 mg/dl (1.7-2.4); Potassium 3.7 mmol/L (3.5-5.1)
[2024-08-24] MEDS: HYDROCORTISONE SOD 50 MG in SYRINGE 0 ML IV SCH (17:39)
[2024-08-24 20:30] LABS: BUN Creatinine Ratio 14.4 (10-20); Calcium 6.5 mg/dl (8.6-10.3); Creatinine Clr Calc Pharmacy 21.6 ml/min; Magnesium 2.3 mg/dl (1.7-2.4); Potassium 3.6 mmol/L (3.5-5.1)
--- NOTE | 2024-08-24 21:55 | Electrocardiogram Report ---
Test Reason : Blood Pressure : */* mmHG Vent. Rate : 105 BPM Atrial Rate : 107 BPM P-R Int : 192 ms QRS Dur : 82 ms QT Int : 372 ms P-R-T Axes : 0 20 37 degrees QTcB Int : 491 ms Sinus tachycardia Low voltage QRS Nonspecific T wave abnormality Prolonged QT Abnormal ECG When compared with ECG of 17-Aug-2024 09:32, Criteria for Septal infarct are no longer Present Nonspecific T wave abnormality now evident in Inferior leads Confirmed by Luisito Lehman ([id number]) on 08/24/2024 9:54:56 PM Referred By: REFERRED SELF Confirmed By: Luisito Lehman
[2024-08-25] MEDS: PROPOFOL BOLUS FROM BAG IV PRN
[2024-08-25 03:31] LABS: Hematocrit (blood only) 24.4 % (42.0-52.0); Hemoglobin 7.9 g/dl (14.0-18.0); Mean Corpuscular Hemoglobin 30.7 pg (25.0-34.0); Mean Corpuscular Hgb Conc 32.4 g/dL (32.0-36.0); Mean Corpuscular Volume 94.9 fL (80.0-100.0); Mean Platelet Volume 9.8 fL (9.4-12.4); Nucleated RBC # (auto) 0.37 K/uL (0.00-0.12); Nucleated RBC % (auto) 3.3 %; Platelet Count 257 K/uL (130-400); RDW Coefficient of Variation 19.3 % (11.5-14.5); RDW Standard Deviation 57.7 fL (36.4-46.3); Red Blood Count 2.57 M/uL (4.70-6.10); White Blood Count 11.16 K/ul (4.8-10.8)
[2024-08-25 03:59] LABS: Albumin Level 1.7 gm/dl (3.4-5.0); BUN Creatinine Ratio 14.9 (10-20); Bilirubin Direct 2.6 mg/dl (0-0.2); Calcium 5.5 mg/dl (8.6-10.3); Creatinine Clr Calc Pharmacy 22.2 ml/min; Magnesium 2.1 mg/dl (1.7-2.4); Phosphorus 2.6 mg/dl (2.5-4.9); Potassium 3.5 mmol/L (3.5-5.1); Total Protein 5.1 gm/dl (6.0-8.3)
--- NOTE | 2024-08-25 04:00 | Ultrasound Report ---
EXAM: US liver CLINICAL HISTORY: elevated lfts TECHNIQUE: An ultrasound examination of the limited abdomen was performed. Difficult portable examination as the patient was unable to move and intubated. COMPARISON: Ultrasound dated 08/19/[address] dated 08/18/2024. FINDINGS: Difficult portable examination as the patient was unable to move and intubated. The pancreas is seen prominent with a hypoechoic heterogeneous echo texture. The liver is enlarged in size, measuring 24.2 cm with increased parenchymal echogenicity. No definite focal lesion seen within the liver. The gallbladder is seen distended with normal wall thickness measuring 0.23 cm. Mild pericholecystic edema. No definite sludge or stones seen within the gallbladder. The common bile duct is not dilated, measuring 0.29-0.41 cm. The right kidney is seen measuring 13.8 cm with no definite hydronephrosis or calculi seen within. Mild perihepatic ascites is noted. IMPRESSION: 1. Prominent pancreas with heterogeneous hyperechoic echotexture. This could be due to inflammatory process. Need clinical correlation. 2. Mild pericholecystic edema. This could be due to reactionary due to ascites or adjacent inflammatory process. New finding. 3. Hepatic steatosis. Unchange. 4. Mild perihepatic ascites. Unchanged. 5. Otherwise, no significant interval changes. Electronically signed by Rajani Jenkins 08-25-2024 03:59 AM
[2024-08-25] MEDS: CALCIUM GLUCONATE 1,000 MG/60 ML BAG IV SCH ×4 (04:50→19:58)
[2024-08-25 05:09] LABS: Basophils # (auto) 0.02 K/uL (0.00-0.20); Basophils % (auto) 0.2 %; Immature Granulocytes # (auto) 0.81 K/uL (0.01-0.20); Immature Granulocytes % (auto) 7.3 %; Lymphocytes # (auto) 1.04 K/uL (1.20-3.40); Lymphocytes % (auto) 9.3 %; Monocytes # (auto) 0.54 K/uL (0.11-0.59); Monocytes % (auto) 4.8 %; Neutrophils # (auto) 8.75 K/uL (1.40-6.50); Neutrophils % (auto) 78.4 %; Polychromasia 1+; Toxic Vacuolation 1+
--- NOTE | 2024-08-25 07:52 | Nephrology Progress Note ---
Date of Service August 25, 2024 Assessment & Plan (1) Hypocalcemia: Plan: still CRITICAL hypocalcemia starting 72 hrs after bisphosphonate for severe hypercalcemia, cause for original ca elevation unclear corrected Ca 13.8, Ca 12.8 on 08/20; Ca 12.4 on 08/21; Ca 9.4 on 08/22, 4.9 on 08/23 25 OH D 26; phos 2.7 PTH 7 on 08/19 hypercalcemia RESOLVED after low dose bisphosphonate; hopefully his MS will improve with lower calcium; notably at [facility] admission 08/02-08/11 he was consistently hypophosphatemic and hypocalcemic hypocalcemic (but not critically so) in [facility] on 08/23 he had critical hypocalcemia Ca 4.9 >> had 11 gm IV Ca on 08/23 plus NG Ca as well; PTH 195 >>>>>> Last Ca today 5.5 >> >>>>again ordered 3 gm IV ca gluconate, hold for Ca > 7.2 -cont ca carbonate suspension 1.3 gm tid NG >gave K 40 mEq elixir -ordered q4h BMP x 5 and run stat/urgent -no further mag/K repletion required -PTH appropriately elevated now -await PTHrp <<not likely to be helpful; done for completeness 945 labs reviewed > Ca 6.1, K 3.5 >gave another 3 gm IV calcium and another 40 NG K (2) JUANA (acute kidney injury): Plan: improving stage 3 oliguric JUANA w/ multiple phases/hits >> admitted from [facility] w/ sepsis versus AIN also on ddx. Admitting creatinine on 08/13 4.5, which was peak value. was slowly improving creatinine and > 2L UOP daily (in setting of elevated Ca) then 08/21 cardiac arrest and in wake of this (and normal/low Ca) oliguria and worsening JUANA but this has stabilized, oliguria resolved on 08/24 and starting to improve Admitted [facility] 08/02-08/11 >> Date Creat Ca C02 consistently 18-19 on these dates; phos in high ones 08/06-08/10 08/08 0.8 7.5 08/09 1.0 7.5 08/10 1.6 6.8 08/11 2.8 6.9 Also during [facility] admission had 08/07 drug reaction to ANCEF w/ rash and F > rounding team thought this might be drug fever. d/c to [facility] 08/11 where he continued to have F, dyspnea, ongoing redness/wound concerns and had at least one dose of rocephin [facility] could be Ischemic or toxic in the setting of Sepsis/vanco. acute interstitial nephritis is also on differential; reluctant to give steroids in setting of therapy for OM and concerns for aspiration PNA; marked eosinophilia (total eos 3X ULN) however urine eos negative x 3 08/23 (some delay/challenges getting test done so in theory could have resolved as well; appreciate nursing/lab teams help w/ urine eos) doubt an abrupt MGUS; could consider GN but he'd need biopsy to diagnose; not obstructed On 08/21 he had a cardiac arrest > became oliguric w/ 125 mL UOP for 12 h ON and 310 total for 08/22 and again 125 mL UOP ON into 08/23; oliguria x 48 hrs resolved now 1.8 gm proteinuria >last F 08/23 1230 > 38.2 >>>mild volume overload but autodiuresing >>>slightly worse JUANA after cardiac arrest improving now > today creatinine plateau'd but UOP improving >>critical hypocalcemia; for now hypokalemia, hypomagnesemia controlled/resolved (though K supplemented past 24 hr) >pressors as needed to keep MAP > 65 >agree with [facility] 150 mL q6h no major issues with fluid overload and/or lytes except Ca I and O charting. Daily renal panel and CBC. maintain good hemodynamics. Hold metformin, Jardiance, Lisinopril. No NSAIDS, no contrast agents (3) Sepsis: Plan: Source is diabetic Ulcer/OM with recent complications now +/- aspiration w/ TF versus other; defervesced >>he did have C glabrata >100K on urine cx at admission and had thrush at [facility] > ordered fungal blood cx; smear negative >LP deferred for now while pending MS tanesha (4) Encephalopathy chronic: Plan: chronic, eg, multiple days; since I started service on 08/20 >> withdraws to painful stim only one month ago this pt was working/ living independently confused/ sluggish but awake on 08/13 arrival > knew name and that was in hospital; had been sent d/t F, AMS by 08/16 neuro c/s for encephalopathy > difficult to arouse at that time but arouseable, would say name since then 08/20 my arrival and per RN report from 08/19, withdraws to painful stim only >> ?multifactorial from hypercalcemia plus other? intubated evening 08/21 (5) Hypercalcemia: Plan: RESOLVED after low dose bisphosphonate; hopefully his MS will improve with lower calcium MONITOR for hypocalcemia, which he had in [facility] corrected Ca 13.8, Ca 12.8 on 08/20; Ca 12.4 on 08/21; Ca 9.4 on 08/22 25 OH D 26; phos 3.9 PTH 7 on 08/19 calcitonin IM 400 units q 12h x 2 days - started 08/20 >>stopped calcitonin lower dose zoledronic acid > 2 mg IV (reduced dose run slowly over 60 min) given 08/20 no obvious meds causing this, at least not this admission; notably at [facility] admission 08/02-08/11 he was consistently hypophosphatemic and hypocalcemic hold IVF for now >>await PTHrp <<not likely to be helpful; done for completeness >>pls check phos, mag, ca daily Admission and Anticipated Discharge Date Admission Date: August 14, 2024 Subjective had 5 gm calcium ON; Ca this am 5.5 Physical Exam 2 Constitutional: well developed (intubated), well nourished and + altered mental status; no acute distress ENMT: Ears: no external ear abnormality Nose: no external nose abnormality Mouth: + dry oral mucous membranes Neck: no nuchal rigidity Respiratory: normal respiratory effort and + tachypneic; no respiratory distress Auscultation: + diminished lung sounds and + rhonchi Cardiovascular: Rate/Rhythm: regular rate and regular rhythm Extremities: + edema (1+ dependent) Gastrointestinal (Abdomen): Inspection/Auscultation: + abdomen distended and normal bowel sounds Percussion/Palpation: abdomen soft; abdomen nontender Skin: no rashes, warm and dry Results & Data Vital Signs (Past 12 Hours) Vital Signs Temp Pulse Resp BP Pulse Ox O2 Del Method O2 Flow Rate 08/25/24 07:36 91 H 20 94 08/25/24 05:06 87 19 96 Mechanical Vent 03/01/25 05:00 37.2 C 111/60 08/25/24 04:57 88 19 95 Mechanical Vent 30 08/25/24 04:33 88 20 95 08/25/24 04:27 87 20 95 08/25/24 04:06 87 21 95 Mechanical Vent 08/25/24 04:01 107/58 L 08/25/24 04:00 08/25/24 04:00 87 08/25/24 03:57 88 19 95 08/25/24 03:48 87 18 95 08/25/24 03:33 88 20 95 08/25/24 03:30 87 21 95 08/25/24 03:15 87 23 95 08/25/24 03:00 106/57 L 08/25/24 03:00 106/57 L 08/25/24 03:00 106/57 L 08/25/24 03:00 88 20 94 Mechanical Vent 08/25/24 02:48 88 18 95 Mechanical Vent 08/25/24 02:18 88 19 95 08/25/24 02:00 113/74 08/25/24 01:39 88 20 95 08/25/24 01:33 87 19 95 08/25/24 01:18 88 21 95 08/25/24 01:00 106/59 L 08/25/24 01:00 88 19 96 08/25/24 00:51 89 20 95 08/25/24 00:42 89 18 95 08/25/24 00:26 85 18 94 08/25/24 00:06 37.2 C 92 H 19 93 Mechanical Vent 08/25/24 00:02 129/71 08/25/24 00:02 129/71 08/25/24 00:00 90 08/25/24 00:00 08/25/24 00:00 92 H 08/24/24 23:51 92 H 25 H 92 08/24/24 23:48 92 H 26 H 92 08/24/24 23:30 92 H 23 93 08/24/24 23:21 89 26 H 94 08/24/24 23:00 37.2 C 86 20 95 08/24/24 22:45 37.2 C 86 18 95 08/24/24 22:33 37.2 C 88 18 96 08/24/24 22:27 37.2 C 87 17 95 08/24/24 22:00 37.3 C 88 21 95 Mechanical Vent 08/24/24 22:00 106/59 L 08/24/24 22:00 106/59 L 08/24/24 21:39 37.3 C 88 21 95 Mechanical Vent 08/24/24 21:15 37.3 C 90 19 95 Mechanical Vent 08/24/24 21:00 Mechanical Vent 08/24/24 21:00 37.3 C 90 22 94 Mechanical Vent 08/24/24 20:39 37.3 C 92 H 23 92 Mechanical Vent 08/24/24 20:21 90 18 93 08/24/24 20:21 37.3 C 93 H 20 92 08/24/24 20:06 37.3 C 92 H 23 93 08/24/24 20:00 08/24/24 20:00 115/62 08/24/24 19:51 37.3 C 91 H 22 94 08/24/24 19:48 37.3 C 91 H 23 94 FiO2 08/25/24 07:36 30 08/25/24 05:06 08/25/24 05:00 08/25/24 04:57 08/25/24 04:33 08/25/24 04:27 08/25/24 04:06 30 08/25/24 04:01 08/25/24 04:00 30 08/25/24 04:00 08/25/24 03:57 08/25/24 03:48 08/25/24 03:33 08/25/24 03:30 30 08/25/24 03:15 08/25/24 03:00 08/25/24 03:00 08/25/24 03:00 08/25/24 03:00 30 08/25/24 02:48 30 08/25/24 02:18 08/25/24 02:00 08/25/24 01:39 08/25/24 01:33 08/25/24 01:18 08/25/24 01:00 08/25/24 01:00 08/25/24 00:51 08/25/24 00:42 08/25/24 00:26 30 08/25/24 00:06 30 08/25/24 00:02 08/25/24 00:02 08/25/24 00:00 08/25/24 00:00 30 08/25/24 00:00 08/24/24 23:51 08/24/24 23:48 08/24/24 23:30 08/24/24 23:21 08/24/24 23:00 08/24/24 22:45 08/24/24 22:33 08/24/24 22:27 08/24/24 22:00 30 08/24/24 22:00 08/24/24 22:00 08/24/24 21:39 30 08/24/24 21:15 30 08/24/24 21:00 30 08/24/24 21:00 30 08/24/24 20:39 30 08/24/24 20:21 08/24/24 20:21 08/24/24 20:06 08/24/24 20:00 30 08/24/24 20:00 08/24/24 19:51 08/24/24 19:48 Laboratory Results 08/25/24 03:11 08/25/24 03:11 Ca 5.5 phos 2.6 mag2.1
[2024-08-25] MEDS: POTASSIUM CHLORIDE 20 MEQ/15 ML UDC PO ONE (08:22)
--- NOTE | 2024-08-25 08:25 | Critical Care Progress Note ---
Date of Service August 25, 2024 Assessment & Plan (1) Hypercalcemia: (2) Transaminitis: (3) Encephalopathy: (4) Cellulitis of left lower extremity: (5) Diabetic foot ulcer: (6) JUANA (acute kidney injury): (7) Cardiac arrest: (8) Shock circulatory: Plan Reason Critically Ill: 63-year-old male admitted to the hospital for lower extremity cellulitis as well as osteomyelitis for right foot ulcer Past medical history: Seizures, dyslipidemia, diabetes, hypertension, history of lung cancer Neuro - [facility]: Unable to assess -- Encephalopathy Multifactorial Hypercalcemia with calcium of 12.4, corrected calcium around 14 --> resolved --> now hypocalcemic Ammonia 64 Elevated TSH with normal free T4 Questionable anoxic brain injury Cardiac arrest 08/21/2024 CT head negative 08/19/2024 Brain MRI 08/16/2024 negative Cardiac - 2D echo 08/21/2024: EF greater than 70%, mild concentric LVH, borderline RV enlargement, no significant valvular disease, no pericardial effusion -- Cardiac arrest with shock Patient had bradycardia and then asystole on the telemetry strip Continue with vasopressor support to keep MAP greater than 65 --Anasarca with severe protein-calorie malnutrition Albumin 2 Respiratory - -- VDRF For airway protection from cardiac arrest Continue with ventilatory support Keep RASS -1 Daily sedation holidays and SBT's --Right lower lobe aspiration pneumonia On antibiotics -- Chronic elevation of the right hemidiaphragm GI - --Transaminitis Etiology is likely coming from medication/antibiotic initially followed by cardiac arrest Used to be on vancomycin as an outpatient, also got cefepime while he was in the hospital as well as Depakote Trending down Continue to monitor Hepatitis panel - negative on 08/19/2024 Liver ultrasound 08/24/2024: Prominent pancreas, pericholecystic, hepatic steatosis RENAL/LYTES - -- JUANA on CKD Avoid nephrotoxic medication Monitor BUNs/creatinine -- S/p hypernatremia with hyperchloremia Getting free water flushes through the OGT -- Status post hypercalcemia Appreciated after coming to the hospital PTH less than 7, goes along with secondary hypercalcemia Patient did get 3 doses calcitonin as well as 1 dose of zalendronic acid Etiology for hypercalcemia is unclear. Patient was eucalcemic when he came in and actually hypocalcemic when he was admitted at [facility] last month. He did not get any fluids to cause hypercalcemia Querry MGUS, MDS versus multiple myeloma ENDO - -- Diabetes type 2 ICU hypoglycemia protocol HEME - -- Normocytic anemia Monitor H&H ID - -- Osteomyelitis On antibiotics, infectious disease on board Procalcitonin> 100 on presentation, downtrending --Right lower lobe aspiration pneumonia On meropenem Will complete the course of meropenem for total of 6 days. Then go back to daptomycin as per infectious disease recommendation Complete the tapering dose of hydrocortisone --Loose bowel movement Negative for C. difficile toxin and antigen --Prophylaxis VTE: Heparin GI: Pantoprazole Lines: Right radial, right arm PICC Diet: Tube feeds Plan: In/out: + 717, urine output 1245 ml, +14 L since coming to the hospital Sodium is improving, decrease free water flushes to 150 mL every 6 Potassium, calcium being replaced. Continue with BMP every [address] head today Urine output is improving along with BUN/creatinine. LFTs are also trending down Patient's son and [id number] were updated regarding current condition Overall prognosis is guarded After discussion with the family, decision was made to not to escalate the care continue with vasopressor support but no CPR in future if need be I have personally spent 36 minutes of critical care time in the direct management of this patient. This is a life/limb threatening event. This includes time spent evaluating patient, direct bedside care, chart review, placing orders, interpretation of diagnostic studies, discussion with consultants, patient, and family members, as well as other required patient management activities. This time is exclusive of all separately billable procedures, and teaching time and separate from and in addition to any other critical care service time. Admission and Anticipated Discharge Date Admission Date: August 14, 2024 Subjective Patient seen and examined at bedside. No acute distress, no adverse events overnight He was on 200 of fentanyl 35 propofol at the time of examination He was breathing over the vent He extends his extremities to pain. No purposeful movement Still spiking low-grade fever Review of Systems 2 Review of Systems: Unobtainable due to endotracheal tube Physical Exam 2 Physical Exam: Constitutional: No respiratory distress HEENT: PERRLA, sluggish response Respiratory system: Decreased air entry bilaterally, no wheeze, no rhonchi, positive crackles bilateral lower lobe CVS: S1-S2 positive, no murmurs or gallops Abdomen: Soft, nontender, nondistended, positive bowel sounds x4 Extremities: +2 pulses bilaterally radialis/ dorsalis pedis, no cyanosis, +2 pitting edema bilateral lower extremity, right first and second toe amputation Neuro: Breathing over the vent, opening eyes to noise, does not follow any commands Psych: Unable to assess G/U: Positive Sarmiento Skin: no rashes, warm and dry Lymphatic: no cervical or axillary lymphadenopathy Results & Data Results & Data Vital Signs (Past 12 Hours) Vital Signs Temp Pulse Resp BP Pulse Ox O2 Del Method O2 Flow Rate 08/25/24 07:36 91 H 20 94 08/25/24 05:06 87 19 96 Mechanical Vent 08/25/24 05:00 37.2 C 111/60 08/25/24 04:57 88 19 95 Mechanical Vent 30 08/25/24 04:33 88 20 95 08/25/24 04:27 87 20 95 08/25/24 04:06 87 21 95 Mechanical Vent 08/25/24 04:01 107/58 L 08/25/24 04:00 08/25/24 04:00 87 08/25/24 03:57 88 19 95 08/25/24 03:48 87 18 95 08/25/24 03:33 88 20 95 08/25/24 03:30 87 21 95 08/25/24 03:15 87 23 95 08/25/24 03:00 106/57 L 08/25/24 03:00 106/57 L 08/25/24 03:00 106/57 L 08/25/24 03:00 88 20 94 Mechanical Vent 08/25/24 02:48 88 18 95 Mechanical Vent 08/25/24 02:18 88 19 95 08/25/24 02:00 113/74 08/25/24 01:39 88 20 95 08/25/24 01:33 87 19 95 08/25/24 01:18 88 21 95 08/25/24 01:00 106/59 L 08/25/24 01:00 88 19 96 08/25/24 00:51 89 20 95 08/25/24 00:42 89 18 95 08/25/24 00:26 85 18 94 08/25/24 00:06 37.2 C 92 H 19 93 Mechanical Vent 08/25/24 00:02 129/71 08/25/24 00:02 129/71 08/25/24 00:00 90 08/25/24 00:00 08/25/24 00:00 92 H 08/24/24 23:51 92 H 25 H 92 08/24/24 23:48 92 H 26 H 92 08/24/24 23:30 92 H 23 93 08/24/24 23:21 89 26 H 94 08/24/24 23:00 37.2 C 86 20 95 08/24/24 22:45 37.2 C 86 18 95 08/24/24 22:33 37.2 C 88 18 96 08/24/24 22:27 37.2 C 87 17 95 08/24/24 22:00 37.3 C 88 21 95 Mechanical Vent 08/24/24 22:00 106/59 L 08/24/24 22:00 106/59 L 08/24/24 21:39 37.3 C 88 21 95 Mechanical Vent 08/24/24 21:15 37.3 C 90 19 95 Mechanical Vent 08/24/24 21:00 Mechanical Vent 08/24/24 21:00 37.3 C 90 22 94 Mechanical Vent 08/24/24 20:39 37.3 C 92 H 23 92 Mechanical Vent FiO2 08/25/24 07:36 30 08/25/24 05:06 08/25/24 05:00 08/25/24 04:57 08/25/24 04:33 08/25/24 04:27 08/25/24 04:06 30 08/25/24 04:01 08/25/24 04:00 30 08/25/24 04:00 08/25/24 03:57 08/25/24 03:48 08/25/24 03:33 08/25/24 03:30 30 08/25/24 03:15 08/25/24 03:00 08/25/24 03:00 08/25/24 03:00 08/25/24 03:00 30 08/25/24 02:48 30 08/25/24 02:18 08/25/24 02:00 08/25/24 01:39 08/25/24 01:33 08/25/24 01:18 08/25/24 01:00 08/25/24 01:00 08/25/24 00:51 08/25/24 00:42 08/25/24 00:26 30 08/25/24 00:06 30 08/25/24 00:02 08/25/24 00:02 08/25/24 00:00 08/25/24 00:00 30 08/25/24 00:00 08/24/24 23:51 08/24/24 23:48 08/24/24 23:30 08/24/24 23:21 08/24/24 23:00 08/24/24 22:45 08/24/24 22:33 08/24/24 22:27 08/24/24 22:00 30 08/24/24 22:00 08/24/24 22:00 08/24/24 21:39 30 08/24/24 21:15 30 08/24/24 21:00 30 08/24/24 21:00 30 08/24/24 20:39 30 Laboratory Results 08/25/24 03:11 08/25/24 03:11 Coding Level of Care Code 41551 CRITICAL CARE 1ST 30-74M Diagnoses Hypercalcemia E83.52 Transaminitis R74.01 Encephalopathy G93.40 Cellulitis of left lower extremity L03.116 Diabetic foot ulcer E11.621; L97.412 Diabetes mellitus type: type 2 Diabetic foot ulcer location: midfoot Laterality: right Non-pressure ulcer stage: with fat layer exposed JUANA (acute kidney injury) N17.9 Cardiac arrest I46.9 Shock circulatory R57.9 (5) Diabetic foot ulcer Diabetes mellitus type: type 2 Diabetic foot ulcer location: midfoot L aterality: right Non-pressure ulcer stage: with fat layer exposed Qualified Code(s): E11.621 - Type 2 diabetes mellitus with foot ulcer; L97.412 - Non- pressure chronic ulcer of right heel and midfoot with fat layer exposed
--- NOTE | 2024-08-25 08:55 | Communication Note ---
Date of Service: August 25, 2024 LFT's slightly better. RUQ ultrasound no real changes. Would just continue to follow LFT's
[2024-08-25 10:18] LABS: BUN Creatinine Ratio 15.3 (10-20); Calcium 6.1 mg/dl (8.6-10.3); Creatinine Clr Calc Pharmacy 23.4 ml/min; Potassium 3.6 mmol/L (3.5-5.1)
--- NOTE | 2024-08-25 11:23 | Hospitalist Progress Note ---
Date of Service August 25, 2024 Assessment & Plan (1) Sepsis: Plan: Per previous hospitalist w/ addendum 63-yo M w/ type 2 diabetes, diabetic ulcer of right midfoot, dyslipidemia, hypophosphatemia, hypertension, history of C. difficile colitis, oral thrush, cellulitis of right leg, abscess of right foot, absent seizures, history of lung cancer, was sent in by [facility] rehab because of confusion and fevers. Patient was in [facility] from 08/02/2024 to 08/11/2024. He was admitted to the [facility] for right foot swelling and redness and fevers. And right foot x-ray showed healed fracture through the midshaft of second metatarsal bone with calcified bridging callus. Pes planus. He was admitted for right foot infection. MRI of the foot was negative for osteomyelitis and showed cellulitis and possible abscess. Status post I&D by podiatry at bedside on August 03 with a deep purulence obtained and sent for culture. Status post I&D with podiatry for sepsis on August 06 and probe to bone very favorable and no clear abscess as suggested by CT scan. During hospital stay he was also completed Tamiflu for influenza. ID suggested Ancef until September 17 and to treat as osteomyelitis for MSSA on wound cultures with 6 weeks of IV antibiotics. On August 07 patient had rash thought to be from Ancef. Rash was worsening after second dose of Ancef and patient was having fevers that thought to be lined up from Ancef doses and was thought possible drug fever. And ID recommended IV Vanco via PICC line. Vancomycin dosing goal AUC 400-600 Mg/liter/hour. And patient was discharged to [facility] on 08/11/2024. At [facility] patient was still having fevers and shortness of breath and erythema around his wound ,does not appear to be receding thought to be spreading. [facility] made ID aware. As per the med rec from the [facility] seems patient had Rocephin. And was sent to our ER today because of fever and altered mental status. Patient can tell his name. Knows that he is in the hospital. Could tell his date of . But could not tell current dates. Denies any cough. Denies headache. Denies chest pain. Denies shortness of breath. Denies belly pain. Status post Sarmiento in the ER. Patient seems poor historian at this time. No sacral ulcer seen. 08/21/[address] Canchola - Code Blue Patient noted to be bradycardic and pale while getting oral care today. Patient was noted to have heart rate in 50-40s and became tachypneic. Prior to the episode, tube feeds were held for oral care per RN. Initially code purple was called and later changed to CODE BLUE and ACLS protocol was performed. Patient required CPR and needed intubation for respiratory support. IV epinephrine was administered per protocol. Chest x-ray, ABG, blood work ordered post intubation. Patient was will be transferred to ICU for further management. Critical care consulted. Updated patient's family over the phone. Sepsis Bilateral lower extremity cellulitis Right foot diabetic ulcer Recently on [facility] was placed on IV Vanco for 6 weeks until September 17 to treat his osteomyelitis though MRI was negative and abscess was I&D by podiatry at [facility] --Right Foot X ray: No definite radiographic evidence of osteomyelitis as described. --Venous Doppler:No evidence of deep venous thrombus within the bilateral lower extremities. --Arterial Doppler:Negative right lower extremity arterial evaluation. No occlusion or significant hemodynamic stenosis with multiphasic waveforms throughout. --CT ABD:No bowel obstruction. Severe hepatic steatosis. Hepatomegaly. Anasarca. Small amount of ascites within the pelvis. -- Blood cultures negative to date -- Urine culture: Heather glabrata IV cefepime discontinued as recommended by infectious disease/neurology Received IV fluids, monitor volume status closely Avoid IV Vanco as trough level high, JUANA Appreciate infectious disease input: Once Vanco trough drops < 15 will start the patient on IV daptomycin. (Will renally dose IV daptomycin through 09/17/24) Appreciate Podiatry Input : Given ongoing treatment, will defer MRI foot for now Continue local wound care Aspiration precautions Vanco trough 14.2 on 08/20/[address] Canchola Discussed with ID on 08/21: Recommends to change Dapto, Zosyn to meropenem today. Recommends lumbar puncture. Hold antivirals for lumbar puncture per ID Consulted IR for lumbar puncture tomorrow 08/22 Currently pt intubated, s/p code blue episode as above Pt on vasopressors, febrile 08/24 Reached out to ID for further recommendations - when finished w/ meropenem - cont. w/ daptomycin for osteomyelitis 08/25 Off pressors Acute metabolic encephalopathy Likely due to above infection/meds DD: Meningitis, encephalitis Suspected urinary tract infection--Less likely --Head CT:No acute findings in the head/brain. --Urine culture: as above --MRI Brain:No evidence of acute or subacute infarct. Reorient frequently to minimize delirium Repeat CT head showed no acute process -Normal ammonia level -Drug screen negative -VBG showed no hypercarbia -TSH elevated, normal free T4 --Thiamine B1 level pending -EEG: This is an abnormal routine EEG in a patient w altered mental state due to 1. Generalized background slowing suggestive of non specific encephalopathy, 2. Triphasic waves which are non specific but commonly seen in metabolic encephalopathies. --Lamictal levels 6.6 --Elevated INR--received vitamin K Could not get lumbar puncture initially due to elevated INR/patient agitated INR 1.4 on 08/23 Valproic acid held due to rising LFTs. Neurology aware Monitor ammonia levels, received a dose of lactulose on 08/20/2024 Appreciate neurology input. 08/25 CT head - 1. No acute intracranial findings. 2. Exam moderately compromised by motion artifact. However, no CT evidence for anoxic injury. Acute kidney injury likely ATN/toxic secondary to infection, vancomycin/AIN Cr: 4.4>4.1>4.0> 3.8 Creatinine was 1.6 on 08/12/2024 --CT ABD:Mild nonspecific perinephric stranding. No hydronephrosis. Simple 2 cm left renal cyst. No follow-up of this simple cyst is necessary. 08/22 -- current Cr 4.19 - nephrology/ critical care discussed poss. HD w/pt's family 08/24 Cr 3.9 08/25 Cr 3.3 Avoid nephrotoxic agents as able Monitor renal function, urinary output Bladder scan as needed Metformin, Jardiance, lisinopril on hold Avoid NSAIDs Monitor for volume status Received IV fluid Appreciate nephrology input Hypercalcemia --> now hypocalcemia (after hypercalcemia treatment) Hypernatremia Likely due to dehydration Low PTH, vitamin D levels PTH related peptide pending IV fluids as recommended by nephrology Monitor electrolytes closely Also on free water flushes through NG tube Started on calcitonin, Zometa Monitor calcium levels Calcium 12.4 on 08/21 - > (08/22) 9.4 -> 7.4 Sodium 149 on 08/21 -> now 150/148 (essentially unchanged) 08/23 calcium now down (Hypocalcemia) after treatment, ca being replaced - discussed w/ nephrology 08/24 calcium continues to be critically low, 5.6 today, needs replacement Unclear cause of hypercalcemia 08/25 Ca 5.5 - calcium replacement needed today again Transaminitis Likely due to sepsis, fatty liver --CT ABD:Hepatic steatosis. Hepatomegaly. Minimal free fluid around the liver and in the pelvis. --Hepatitis panel pending --Gall Bladder USD: Trace ascites. Normal sonographic appearance of the gallbladder. Large fatty liver. --Elevated INR Monitor LFTs Hold Lipitor for now GI following Valproate held due to worsening LFTs Hyponatremia--Resolved Currently hypernatremic as above Anemia Iron deficiency anemia Anemia of chronic disease No obvious signs of bleeding Vit B12, folate levels reviewed Monitor CBC Started on iron supplements Hypertension Hold lisinopril Continue atenolol with holding parameters Monitor DM II Hold home medications Adjust insulin per protocol to minimize hypoglycemic episodes Monitor blood glucose levels Hyperlipidemia Hold statin due to elevated LFTs History of seizures On Lamictal Monitor Remote history of lung cancer Treated with chemo as per records DVT Px: Heparin SQ Code Status Full code Disposition- currently ICU, prognosis guarded Admission and Anticipated Discharge Date Admission Date: August 14, 2024 Subjective Pt seen in follow up Pt was code blue/ cardiac arrest on 08/21 evening -> now in ICU Prior to this admission pt in [place] with diabetic foot / ? abscess/ cellulitis ? osteo Admitted here with JUANA, AMS, also elevated LFTs Intubated, on pressors, febrile Does not respond to voice or tactile stimuli at this time. Discussed w/ RN Nephrology, cardiology, GI, ID consulted Discussed poss. HD in the future Discussed w/ nephrology - treatment for hypercalcemia -> now hypocalcemic, Ca replaced. Needs Ca replacement today again Diarrhea, hx of c. diff - stool tested negat. c. diff gene Discussed w/ ID - after meropenem course, start daptomycin for OM Today pt is off pressors CT head obtained today - negative for acute pathology Review of Systems Review of Systems: Unobtainable due to cognitive status and Unobtainable due to endotracheal tube Physical Exam Physical Exam: General Appearance: Moderately built and nourished, intubated Head: normocephalic, Atraumatic Neck: + IJ placed Respiratory/Chest: decreased air entry b/l, no wheezing Cardiovascular: S1, S2, No murmur Abdomen/GI:Soft, Bowel sounds present Extremities/Musculoskeletal:normal inspection, 1-2+ B/L LE edema, erythema, R great toe s/p amputation, R foot ulcer Neurologic/Psych: does not open eyes to voice or tactile stimuli on my exam, does not follow commands Skin: warm, dry Results & Data Results & Data Vital Signs (Past 12 Hours) Vital Signs Temp Pulse Resp BP Pulse Ox O2 Del Method O2 Flow Rate 08/25/24 11:00 37.6 C H 96 H 19 91 08/25/24 10:48 37.6 C H 97 H 22 92 08/25/24 10:36 91 H 22 94 08/25/24 10:33 96 H 19 93 08/25/24 10:00 98/53 L 08/25/24 10:00 98/53 L 08/25/24 09:42 94 H 20 94 08/25/24 09:33 94 H 19 94 08/25/24 09:21 94 H 21 93 08/25/24 09:09 95 H 16 93 08/25/24 09:01 112/63 08/25/24 09:01 112/63 08/25/24 09:00 96 H 23 91 08/25/24 08:56 37.6 C H 08/25/24 08:06 90 21 95 08/25/24 08:00 Mechanical Vent 08/25/24 08:00 08/25/24 08:00 91 H 08/25/24 07:36 91 H 20 94 08/25/24 07:18 91 H 18 94 08/25/24 07:00 114/55 L 08/25/24 07:00 114/55 L 08/25/24 06:54 91 H 17 93 08/25/24 05:06 87 19 96 Mechanical Vent 08/25/24 05:00 37.2 C 111/60 08/25/24 04:57 88 19 95 Mechanical Vent 30 08/25/24 04:33 88 20 95 08/25/24 04:27 87 20 95 08/25/24 04:06 87 21 95 Mechanical Vent 08/25/24 04:01 107/58 L 08/25/24 04:00 08/25/24 04:00 87 08/25/24 03:57 88 19 95 08/25/24 03:48 87 18 95 08/25/24 03:33 88 20 95 08/25/24 03:30 87 21 95 08/25/24 03:15 87 23 95 08/25/24 03:00 106/57 L 08/25/24 03:00 106/57 L 08/25/24 03:00 106/57 L 08/25/24 03:00 88 20 94 Mechanical Vent 08/25/24 02:48 88 18 95 Mechanical Vent 08/25/24 02:18 88 19 95 08/25/24 02:00 113/74 08/25/24 01:39 88 20 95 08/25/24 01:33 87 19 95 08/25/24 01:18 88 21 95 08/25/24 01:00 106/59 L 08/25/24 01:00 88 19 96 08/25/24 00:51 89 20 95 08/25/24 00:42 89 18 95 08/25/24 00:26 85 18 94 08/25/24 00:06 37.2 C 92 H 19 93 Mechanical Vent 08/25/24 00:02 129/71 08/25/24 00:02 129/71 08/25/24 00:00 90 08/25/24 00:00 08/25/24 00:00 92 H 08/24/24 23:51 92 H 25 H 92 08/24/24 23:48 92 H 26 H 92 08/24/24 23:30 92 H 23 93 08/24/24 23:21 89 26 H 94 FiO2 08/25/24 11:00 08/25/24 10:48 08/25/24 10:36 30 08/25/24 10:33 08/25/24 10:00 08/25/24 10:00 08/25/24 09:42 08/25/24 09:33 08/25/24 09:21 08/25/24 09:09 08/25/24 09:01 08/25/24 09:01 08/25/24 09:00 08/25/24 08:56 08/25/24 08:06 08/25/24 08:00 30 08/25/24 08:00 30 08/25/24 08:00 08/25/24 07:36 30 08/25/24 07:18 08/25/24 07:00 08/25/24 07:00 08/25/24 06:54 08/25/24 05:06 08/25/24 05:00 08/25/24 04:57 08/25/24 04:33 08/25/24 04:27 08/25/24 04:06 30 08/25/24 04:01 08/25/24 04:00 30 08/25/24 04:00 08/25/24 03:57 08/25/24 03:48 08/25/24 03:33 08/25/24 03:30 30 08/25/24 03:15 08/25/24 03:00 08/25/24 03:00 08/25/24 03:00 08/25/24 03:00 30 08/25/24 02:48 08/25/24 02:18 08/25/24 02:00 08/25/24 01:39 08/25/24 01:33 08/25/24 01:18 08/25/24 01:00 08/25/24 01:00 08/25/24 00:51 08/25/24 00:42 08/25/24 00:26 30 08/25/24 00:06 08/25/24 00:02 08/25/24 00:02 08/25/24 00:00 08/25/24 00:00 08/25/24 00:00 08/24/24 23:51 08/24/24 23:48 08/24/24 23:30 08/24/24 23:21 Laboratory Results 08/25/24 08/25/24 08/25/24 Range/Units 09:45 08:14 08:12 WBC (4.8-10.8) K/ul RBC (4.70-6.10) M/uL Hgb (14.0-18.0) g/dl Hct (42.0-52.0) % MCV (80.0-100.0) fL MCH (25.0-34.0) pg MCHC (32.0-36.0) g/dL RDW Std Deviation (36.4-46.3) fL RDW Coeff of Eladio (11.5-14.5) % Plt Count (130-400) K/uL MPV (9.4-12.4) fL Immature Gran % (Auto) % Neut % (Auto) % Lymph % (Auto) % Garland % (Auto) % Eos % (Auto) % Baso % (Auto) % Neut # (Auto) (1.40-6.50) K/uL Lymph # (Auto) (1.20-3.40) K/uL Garland # (Auto) (0.11-0.59) K/uL Eos # (Auto) (0.00-0.50) K/uL Baso # (Auto) (0.00-0.20) K/uL Immature Gran # (Auto) (0.01-0.20) K/uL Absolute Nucleated RBC (0.00-0.12) K/uL Nucleated RBC % (auto) % Toxic Vacuolation Polychromasia Sodium 143 (136-145) mmol/L Potassium 3.6 (3.5-5.1) mmol/L Chloride 114 H (98-107) mmol/L Carbon Dioxide 23 (21-32) mmol/L Anion Gap 6 (3-11) BUN 56 H (6-23) mg/dl Creatinine 3.65 H (0.6-1.4) mg/dl Est Cr Clr Drug Dosing 23.4 ml/min eGFR 17.66 BUN/Creatinine Ratio 15.3 (10-20) Glucose 184 H (70-99(Fasting)) mg/dl POC Glucose 180 H 181 H (70-99) mg/dl POC Glucose (other) (70-99) mg/dl Calcium 6.1 L (8.6-10.3) mg/dl Ionized Calcium (1.12-1.32) mmol/L Phosphorus (2.5-4.9) mg/dl Magnesium (1.7-2.4) mg/dl Total Bilirubin (0.2-1.0) mg/dl Direct Bilirubin (0-0.2) mg/dl AST (13-39) U/L ALT (7-52) U/L Alkaline Phosphatase (34-104) U/L Total Protein (6.0-8.3) gm/dl Albumin (3.4-5.0) gm/dl Vitamin B1 (8-30) nmol/L 08/25/24 08/25/24 08/25/24 Range/Units 06:04 04:01 03:17 WBC (4.8-10.8) K/ul RBC (4.70-6.10) M/uL Hgb (14.0-18.0) g/dl Hct (42.0-52.0) % MCV (80.0-100.0) fL MCH (25.0-34.0) pg MCHC (32.0-36.0) g/dL RDW Std Deviation (36.4-46.3) fL RDW Coeff of Eladio (11.5-14.5) % Plt Count (130-400) K/uL MPV (9.4-12.4) fL Immature Gran % (Auto) % Neut % (Auto) % Lymph % (Auto) % Garland % (Auto) % Eos % (Auto) % Baso % (Auto) % Neut # (Auto) (1.40-6.50) K/uL Lymph # (Auto) (1.20-3.40) K/uL Garland # (Auto) (0.11-0.59) K/uL Eos # (Auto) (0.00-0.50) K/uL Baso # (Auto) (0.00-0.20) K/uL Immature Gran # (Auto) (0.01-0.20) K/uL Absolute Nucleated RBC (0.00-0.12) K/uL Nucleated RBC % (auto) % Toxic Vacuolation Polychromasia Sodium (136-145) mmol/L Potassium (3.5-5.1) mmol/L Chloride (98-107) mmol/L Carbon Dioxide (21-32) mmol/L Anion Gap (3-11) BUN (6-23) mg/dl Creatinine (0.6-1.4) mg/dl Est Cr Clr Drug Dosing ml/min eGFR BUN/Creatinine Ratio (10-20) Glucose (70-99(Fasting)) mg/dl POC Glucose 158 H 175 H (70-99) mg/dl POC Glucose (other) (70-99) mg/dl Calcium (8.6-10.3) mg/dl Ionized Calcium 0.83 L (1.12-1.32) mmol/L Phosphorus (2.5-4.9) mg/dl Magnesium (1.7-2.4) mg/dl Total Bilirubin (0.2-1.0) mg/dl Direct Bilirubin (0-0.2) mg/dl AST (13-39) U/L ALT (7-52) U/L Alkaline Phosphatase (34-104) U/L Total Protein (6.0-8.3) gm/dl Albumin (3.4-5.0) gm/dl Vitamin B1 (8-30) nmol/L 08/25/24 08/25/24 08/25/24 Range/Units 03:11 02:15 00:14 WBC 11.16 H (4.8-10.8) K/ul RBC 2.57 L (4.70-6.10) M/uL Hgb 7.9 L (14.0-18.0) g/dl Hct 24.4 L (42.0-52.0) % MCV 94.9 (80.0-100.0) fL MCH 30.7 (25.0-34.0) pg MCHC 32.4 (32.0-36.0) g/dL RDW Std Deviation 57.7 H (36.4-46.3) fL RDW Coeff of Eladio 19.3 H (11.5-14.5) % Plt Count 257 (130-400) K/uL MPV 9.8 (9.4-12.4) fL Immature Gran % (Auto) 7.3 % Neut % (Auto) 78.4 % Lymph % (Auto) 9.3 % Garland % (Auto) 4.8 % Eos % (Auto) 0.0 % Baso % (Auto) 0.2 % Neut # (Auto) 8.75 H (1.40-6.50) K/uL Lymph # (Auto) 1.04 L (1.20-3.40) K/uL Garland # (Auto) 0.54 (0.11-0.59) K/uL Eos # (Auto) 0.00 (0.00-0.50) K/uL Baso # (Auto) 0.02 (0.00-0.20) K/uL Immature Gran # (Auto) 0.81 H (0.01-0.20) K/uL Absolute Nucleated RBC 0.37 H (0.00-0.12) K/uL Nucleated RBC % (auto) 3.3 % Toxic Vacuolation 1+ Polychromasia 1+ Sodium 143 (136-145) mmol/L Potassium 3.5 (3.5-5.1) mmol/L Chloride 113 H (98-107) mmol/L Carbon Dioxide 22 (21-32) mmol/L Anion Gap 8 (3-11) BUN 57 H (6-23) mg/dl Creatinine 3.83 H (0.6-1.4) mg/dl Est Cr Clr Drug Dosing 22.2 ml/min eGFR 16.67 BUN/Creatinine Ratio 14.9 (10-20) Glucose 167 H (70-99(Fasting)) mg/dl POC Glucose 162 H 166 H (70-99) mg/dl POC Glucose (other) (70-99) mg/dl Calcium 5.5 L* (8.6-10.3) mg/dl Ionized Calcium (1.12-1.32) mmol/L Phosphorus 2.6 (2.5-4.9) mg/dl Magnesium 2.1 (1.7-2.4) mg/dl Total Bilirubin 4.0 H (0.2-1.0) mg/dl Direct Bilirubin 2.6 H (0-0.2) mg/dl AST 209 H (13-39) U/L ALT 55 H (7-52) U/L Alkaline Phosphatase 378 H (34-104) U/L Total Protein 5.1 L (6.0-8.3) gm/dl Albumin 1.7 L (3.4-5.0) gm/dl Vitamin B1 (8-30) nmol/L 08/24/24 08/24/24 08/24/24 Range/Units 22:06 20:59 19:59 WBC (4.8-10.8) K/ul RBC (4.70-6.10) M/uL Hgb (14.0-18.0) g/dl Hct (42.0-52.0) % MCV (80.0-100.0) fL MCH (25.0-34.0) pg MCHC (32.0-36.0) g/dL RDW Std Deviation (36.4-46.3) fL RDW Coeff of Eladio (11.5-14.5) % Plt Count (130-400) K/uL MPV (9.4-12.4) fL Immature Gran % (Auto) % Neut % (Auto) % Lymph % (Auto) % Garland % (Auto) % Eos % (Auto) % Baso % (Auto) % Neut # (Auto) (1.40-6.50) K/uL Lymph # (Auto) (1.20-3.40) K/uL Garland # (Auto) (0.11-0.59) K/uL Eos # (Auto) (0.00-0.50) K/uL Baso # (Auto) (0.00-0.20) K/uL Immature Gran # (Auto) (0.01-0.20) K/uL Absolute Nucleated RBC (0.00-0.12) K/uL Nucleated RBC % (auto) % Toxic Vacuolation Polychromasia Sodium 142 (136-145) mmol/L Potassium 3.6 (3.5-5.1) mmol/L Chloride 112 H (98-107) mmol/L Carbon Dioxide 23 (21-32) mmol/L Anion Gap 7 (3-11) BUN 57 H (6-23) mg/dl Creatinine 3.95 H (0.6-1.4) mg/dl Est Cr Clr Drug Dosing 21.6 ml/min eGFR 16.07 BUN/Creatinine Ratio 14.4 (10-20) Glucose 151 H (70-99(Fasting)) mg/dl POC Glucose 153 H 150 H (70-99) mg/dl POC Glucose (other) (70-99) mg/dl Calcium 6.5 L (8.6-10.3) mg/dl Ionized Calcium (1.12-1.32) mmol/L Phosphorus (2.5-4.9) mg/dl Magnesium 2.3 (1.7-2.4) mg/dl Total Bilirubin (0.2-1.0) mg/dl Direct Bilirubin (0-0.2) mg/dl AST (13-39) U/L ALT (7-52) U/L Alkaline Phosphatase (34-104) U/L Total Protein (6.0-8.3) gm/dl Albumin (3.4-5.0) gm/dl Vitamin B1 (8-30) nmol/L 08/24/24 08/24/24 08/24/24 Range/Units 19:41 15:56 15:51 WBC (4.8-10.8) K/ul RBC (4.70-6.10) M/uL Hgb (14.0-18.0) g/dl Hct (42.0-52.0) % MCV (80.0-100.0) fL MCH (25.0-34.0) pg MCHC (32.0-36.0) g/dL RDW Std Deviation (36.4-46.3) fL RDW Coeff of Eladio (11.5-14.5) % Plt Count (130-400) K/uL MPV (9.4-12.4) fL Immature Gran % (Auto) % Neut % (Auto) % Lymph % (Auto) % Garland % (Auto) % Eos % (Auto) % Baso % (Auto) % Neut # (Auto) (1.40-6.50) K/uL Lymph # (Auto) (1.20-3.40) K/uL Garland # (Auto) (0.11-0.59) K/uL Eos # (Auto) (0.00-0.50) K/uL Baso # (Auto) (0.00-0.20) K/uL Immature Gran # (Auto) (0.01-0.20) K/uL Absolute Nucleated RBC (0.00-0.12) K/uL Nucleated RBC % (auto) % Toxic Vacuolation Polychromasia Sodium 143 (136-145) mmol/L Potassium 3.7 (3.5-5.1) mmol/L Chloride 115 H (98-107) mmol/L Carbon Dioxide 24 (21-32) mmol/L Anion Gap 4 (3-11) BUN 58 H (6-23) mg/dl Creatinine 3.86 H (0.6-1.4) mg/dl Est Cr Clr Drug Dosing 22.1 ml/min eGFR 16.52 BUN/Creatinine Ratio 15.0 (10-20) Glucose 137 H (70-99(Fasting)) mg/dl POC Glucose 135 H (70-99) mg/dl POC Glucose (other) 142 H (70-99) mg/dl Calcium 6.2 L (8.6-10.3) mg/dl Ionized Calcium (1.12-1.32) mmol/L Phosphorus (2.5-4.9) mg/dl Magnesium 2.3 (1.7-2.4) mg/dl Total Bilirubin (0.2-1.0) mg/dl Direct Bilirubin (0-0.2) mg/dl AST (13-39) U/L ALT (7-52) U/L Alkaline Phosphatase (34-104) U/L Total Protein (6.0-8.3) gm/dl Albumin (3.4-5.0) gm/dl Vitamin B1 (8-30) nmol/L 08/24/24 08/24/24 08/24/24 Range/Units 13:03 12:03 11:10 WBC (4.8-10.8) K/ul RBC (4.70-6.10) M/uL Hgb (14.0-18.0) g/dl Hct (42.0-52.0) % MCV (80.0-100.0) fL MCH (25.0-34.0) pg MCHC (32.0-36.0) g/dL RDW Std Deviation (36.4-46.3) fL RDW Coeff of Eladio (11.5-14.5) % Plt Count (130-400) K/uL MPV (9.4-12.4) fL Immature Gran % (Auto) % Neut % (Auto) % Lymph % (Auto) % Garland % (Auto) % Eos % (Auto) % Baso % (Auto) % Neut # (Auto) (1.40-6.50) K/uL Lymph # (Auto) (1.20-3.40) K/uL Garland # (Auto) (0.11-0.59) K/uL Eos # (Auto) (0.00-0.50) K/uL Baso # (Auto) (0.00-0.20) K/uL Immature Gran # (Auto) (0.01-0.20) K/uL Absolute Nucleated RBC (0.00-0.12) K/uL Nucleated RBC % (auto) % Toxic Vacuolation Polychromasia Sodium 144 (136-145) mmol/L Potassium 3.8 (3.5-5.1) mmol/L Chloride 113 H (98-107) mmol/L Carbon Dioxide 25 (21-32) mmol/L Anion Gap 6 (3-11) BUN 55 H (6-23) mg/dl Creatinine 3.82 H (0.6-1.4) mg/dl Est Cr Clr Drug Dosing 22.3 ml/min eGFR 16.72 BUN/Creatinine Ratio 14.4 (10-20) Glucose 146 H (70-99(Fasting)) mg/dl POC Glucose (70-99) mg/dl POC Glucose (other) 150 H 158 H (70-99) mg/dl Calcium 6.2 L (8.6-10.3) mg/dl Ionized Calcium (1.12-1.32) mmol/L Phosphorus (2.5-4.9) mg/dl Magnesium 2.3 (1.7-2.4) mg/dl Total Bilirubin (0.2-1.0) mg/dl Direct Bilirubin (0-0.2) mg/dl AST (13-39) U/L ALT (7-52) U/L Alkaline Phosphatase (34-104) U/L Total Protein (6.0-8.3) gm/dl Albumin (3.4-5.0) gm/dl Vitamin B1 (8-30) nmol/L 08/17/24 Range/Units 06:53 WBC (4.8-10.8) K/ul RBC (4.70-6.10) M/uL Hgb (14.0-18.0) g/dl Hct (42.0-52.0) % MCV (80.0-100.0) fL MCH (25.0-34.0) pg MCHC (32.0-36.0) g/dL RDW Std Deviation (36.4-46.3) fL RDW Coeff of Eladio (11.5-14.5) % Plt Count (130-400) K/uL MPV (9.4-12.4) fL Immature Gran % (Auto) % Neut % (Auto) % Lymph % (Auto) % [place]land % (Auto) % Eos % (Auto) % Baso % (Auto) % Neut # (Auto) (1.40-6.50) K/uL Lymph # (Auto) (1.20-3.40) K/uL Garland # (Auto) (0.11-0.59) K/uL Eos # (Auto) (0.00-0.50) K/uL Baso # (Auto) (0.00-0.20) K/uL Immature Gran # (Auto) (0.01-0.20) K/uL Absolute Nucleated RBC (0.00-0.12) K/uL Nucleated RBC % (auto) % Toxic Vacuolation Polychromasia Sodium (136-145) mmol/L Potassium (3.5-5.1) mmol/L Chloride (98-107) mmol/L Carbon Dioxide (21-32) mmol/L Anion Gap (3-11) BUN (6-23) mg/dl Creatinine (0.6-1.4) mg/dl Est Cr Clr Drug Dosing ml/min eGFR BUN/Creatinine Ratio (10-20) Glucose (70-99(Fasting)) mg/dl POC Glucose (70-99) mg/dl POC Glucose (other) (70-99) mg/dl Calcium (8.6-10.3) mg/dl Ionized Calcium (1.12-1.32) mmol/L Phosphorus (2.5-4.9) mg/dl Magnesium (1.7-2.4) mg/dl Total Bilirubin (0.2-1.0) mg/dl Direct Bilirubin (0-0.2) mg/dl AST (13-39) U/L ALT (7-52) U/L Alkaline Phosphatase (34-104) U/L Total Protein (6.0-8.3) gm/dl Albumin (3.4-5.0) gm/dl Vitamin B1 335 H (8-30) nmol/L Medications Administered Current Inpatient Medications Aspirin (Aspirin 81 Mg Chew) 81 mg NG DAILY ANDREI Stop: 09/18/24 08:59 Last Admin: 08/25/24 08:22 Dose: 81 mg Atenolol (Atenolol 50 Mg Tablet) 100 mg NG DAILY ANDRE[facility] Stop: 09/14/24 08:59 Last Admin: 08/22/24 07:47 Dose: Not Given Atorvastatin Calcium (Atorvastatin 20 Mg Tab) 20 mg PO DAILY ANDREI Stop: 09/14/24 08:59 Bisacodyl (Bisacodyl 10 Mg Supp) 10 mg DC DAILY PRN PRN Reason: Constipation Stop: 09/13/24 23:09 Calamine/Phenol (Menthol-Zinc Oxide 360 Appln/120 Gm Tube) 1 appln EXT DAILY [facility] Stop: 09/17/24 15:14 Last Admin: 08/25/24 08:10 Dose: 1 appln Calcium Carbonate (Calcium Carbonate 1,250 Mg/5 Ml Udc) 1,250 mg NG TID ANDREI Stop: 09/22/24 08:59 Last Admin: 08/25/24 08:08 Dose: 1,250 mg Cyanocobalamin (Cyanocobalamin (B-12) 500 Mcg Tablet) 500 mcg NG DAILY [facility] Stop: 09/14/24 08:59 Last Admin: 08/25/24 08:08 Dose: 500 mcg Dextrose (Dextrose 50% 50 Ml Syringe) 25 - 50 ml IV UD PRN; Protocol PRN Reason: Hypoglycemia Protocol Stop: 09/13/24 23:09 Last Admin: 08/21/24 21:58 Dose: 50 ml Enteral Nutritional Formula (Peptamen 1.5 Yovani 1,000 Ml Bag) 1,000 ml NG .See Protocol ANDREI; Protocol Stop: 09/23/24 09:59 Fentanyl Citrate (Fentanyl Bolus From Bag) 50 mcg IV Q60M PRN PRN Reason: Pain or Agitation Stop: 09/04/24 19:34 Last Admin: 08/24/24 03:45 Dose: 50 mcg Ferrous Sulfate (Ferrous Sulfate 325 Mg/7.4 Ml Udp) 325 mg NG DAILY [facility] Stop: 09/18/24 08:59 Last Admin: 08/25/24 08:08 Dose: 325 mg Glucagon (Glucagon For Inj 1 Mg Vial) 1 mg SQ UD PRN; Protocol PRN Reason: Hypoglycemia Protocol Stop: 09/13/24 23:09 Glucose (Glucose 40% Gel 15 Gm Tube) 15 - 30 gm PO UD PRN; Protocol PRN Reason: Hypoglycemia Protocol Stop: 09/13/24 23:09 Glucose (Glucose 10 Tab/Tube) 4 - 8 tab PO UD PRN; Protocol PRN Reason: Hypoglycemia Protocol Stop: 09/13/24 23:09 Heparin Sodium (Beef Lung) (Heparin 10 Unit/Ml 5 Ml Flush) 5 ml FLUSH PRN PRN PRN Reason: Flush Stop: 09/14/24 03:11 Last Admin: 08/18/24 10:08 Dose: 5 ml Heparin Sodium (Porcine) (Heparin Sod 5,000 Unit/0.5 Ml Vial) 5,000 units SQ Q8H [facility] Stop: 09/14/24 00:00 Last Admin: 08/25/24 08:08 Dose: 5,000 units Thiamine HCl 100 mg/ Syringe 10 mls @ 2 mls/min IV QAM [facility] Stop: 09/17/24 15:44 Last Admin: 08/25/24 08:22 Dose: 2 mls/min Meropenem 1,000 mg/ Syringe 20 mls @ 4 mls/min IV Q12H [facility]; Protocol Stop: 08/28/24 02:04 Last Admin: 08/25/24 02:06 Dose: 4 mls/min Vasopressin 20 units/ Sodium (Chloride) 101 mls @ 0 mls/hr IV .Q0M [facility] Stop: 09/20/24 18:59 Last Infusion: 08/25/24 07:00 Dose: 0 unit/min, 0 mls/hr Fentanyl Citrate (Fentanyl Citrate) 2,500 mcg in 250 mls @ 17.5 mls/hr IV .[id number] [facility]; Protocol Stop: 09/04/24 19:44 Last Admin: 08/25/24 10:36 Dose: 175 mcg/hr, 17.5 mls/hr Norepinephrine Bitartrate (Levophed/D5w) 4 mg in 250 mls @ 0 mls/hr IV .Q0M [facility]; Protocol Stop: 09/20/24 19:59 Last Titration: 08/25/24 07:00 Dose: 0 mcg/kg/min, 0 mls/hr Pantoprazole Sodium (Protonix) 40 mg in 10 mls @ 5 mls/min IV DAILY [facility] Stop: 09/21/24 08:59 Last Admin: 08/25/24 08:22 Dose: 5 mls/min Hydrocortisone Sodium (Succinate 50 mg/ Syringe) 1 mls @ 4 mls/min IV Q12H [facility] Stop: 08/26/24 06:01 Last Admin: 08/25/24 05:27 Dose: 4 mls/min Hydrocortisone Sodium (Succinate 50 mg/ Syringe) 1 mls @ 4 mls/min IV Q24H [facility] Stop: 08/27/24 18:01 Insulin Human Regular 250 (units/ Sodium Chloride) 250 mls @ 2 mls/hr IV .Q24H [facility]; Protocol Stop: 09/21/24 13:44 Last Titration: 08/25/24 07:00 Dose: 2 units/hr, 2 mls/hr Propofol (Diprivan) 1,000 mg in 100 mls @ 19.908 mls/hr IV .Q5H2M [facility]; Protocol Stop: 08/27/24 10:29 Last Admin: 08/25/24 10:15 Dose: 35 mcg/kg/min, 19.9 mls/hr Daptomycin 700 mg/ Syringe 14 mls @ 7 mls/min IV Q48H [facility]; Protocol Stop: 09/17/24 14:01 Calcium Gluconate () 1,000 mg in 60 mls @ 240 mls/hr IV Q15M [facility] Stop: 08/25/24 11:59 Insulin Aspart (Insulin Aspart Per Unit Charge) 0 units SC Q4 [facility] Stop: 09/21/24 16:59 Last Admin: 08/25/24 08:14 Dose: 1 units Ipratropium [place] (Ipratropium [place] Neb Soln 0.02% 0.5mg/2.5ml Vial) 0.5 mg INH QIDR PRN PRN Reason: Shortness Of Breath Or Wheezing Stop: 09/21/24 10:08 Lactobacillus Acidophilus (Advanced Probiotic 625 Mg Capsule) 1,250 mg PO DAILY [facility] Stop: 09/14/24 08:59 Last Admin: 08/22/24 09:26 Dose: 1,250 mg Lamotrigine (Lamotrigine 100 Mg Tab) 100 mg PO BID [facility]; Protocol Stop: 09/14/24 08:59 Last Admin: 08/25/24 08:08 Dose: 100 mg Levalbuterol HCl (Levalbuterol 1.25 Mg/3 Ml Neb) 1.25 mg NEB QIDR PRN PRN Reason: Shortness Of Breath Or Wheezing Stop: 09/20/24 14:59 Miscellaneous (Carbohydrates For Hypoglycemia ) 15 - 30 gm PO UD PRN PRN Reason: Hypoglycemia Protocol Stop: 09/13/24 23:09 Multivitamins/Minerals (Multi Vit W/Minerals Liquid 15 Ml Udc) 15 ml NG QAM [facility] Stop: 09/18/24 08:59 Last Admin: 08/20/24 08:12 Dose: 15 ml Nitroglycerin (Nitroglycerin Sl 0.4 Mg/Tab Tab) 0.4 mg SL Q5M PRN PRN Reason: Chest Pain Stop: 09/13/24 23:09 Propofol (Propofol Bolus From Bag) 20 mg IV Q5M PRN PRN Reason: Sedation Stop: 08/27/24 10:20 Last Admin: 08/25/24 00:00 Dose: 20 mg Sterile Water (Tube Feeding Water Flush) 150 ml NG Q6H [facility] Stop: 09/23/24 11:59 Last Admin: 08/25/24 05:26 Dose: 150 ml
[2024-08-25] MEDS: POTASSIUM CHLORIDE 20 MEQ/15 ML UDC NG STA (12:12)
--- NOTE | 2024-08-25 13:33 | CT Scan Report ---
CT OF THE HEAD WITHOUT CONTRAST CLINICAL HISTORY: anoxic injury ? COMPARISON STUDY: Head CT August 22, 2024. CT DOSE: 1250.21 mGy.cm TECHNIQUE: Helical axial images of the head were obtained without IV contrast. Automated exposure con trol was utilized for the study. A dose lowering technique was utilized adhering to the principles o f ALARA. FINDINGS: This exam is moderately compromised by motion artifact. No acute intracranial hemorrhage, m idline shift or mass effect is present. Ventricular system is normal. Basal cisterns are patent. Ther e are no extra-axial collections. Santillan-white differentiation is grossly maintained. There are no find ings to suggest acute dural sinus thrombosis or acute territorial infarct. IMPRESSION: 1. No acute intracranial findings. 2. Exam moderately compromised by motion artifact. However, no CT evidence for anoxic injury. ACT 112: Negative or not required by law. Electronically signed by: Dewey Jorge M.D. 08/25/2024 1:30 PM
[2024-08-25 14:46] LABS: BUN Creatinine Ratio 15.4 (10-20); Calcium 6.8 mg/dl (8.6-10.3); Creatinine Clr Calc Pharmacy 23.6 ml/min; Potassium 4.1 mmol/L (3.5-5.1)
--- NOTE | 2024-08-25 16:20 | Nephrology Progress Note ---
Date of Service August 25, 2024 Assessment & Plan Admission and Anticipated Discharge Date Admission Date: August 14, 2024 Results & Data Vital Signs (Past 12 Hours) Vital Signs Temp Pulse Resp BP Pulse Ox O2 Del Method O2 Flow Rate 08/25/24 14:34 97 H 18 96 08/25/24 14:15 37.9 C H 98 H 18 96 08/25/24 13:51 38.0 C H 101 H 22 94 08/25/24 12:48 37.8 C H 98 H 25 H 92 08/25/24 12:36 37.8 C H 96 H 24 91 08/25/24 12:21 37.8 C H 95 H 25 H 93 08/25/24 12:06 37.8 C H 93 H 22 93 08/25/24 12:00 08/25/24 12:00 97 H 08/25/24 11:36 37.7 C H 94 H 18 94 08/25/24 11:15 37.7 C H 96 H 17 93 08/25/24 11:00 37.6 C H 96 H 19 91 08/25/24 10:48 37.6 C H 97 H 22 92 08/25/24 10:36 91 H 22 94 08/25/24 10:33 96 H 19 93 08/25/24 10:00 98/53 L 08/25/24 10:00 98/53 L 08/25/24 09:42 94 H 20 94 08/25/24 09:33 94 H 19 94 08/25/24 09:21 94 H 21 93 08/25/24 09:09 95 H 16 93 08/25/24 09:01 112/63 08/25/24 09:01 112/63 08/25/24 09:00 96 H 23 91 08/25/24 08:56 37.6 C H 08/25/24 08:06 90 21 95 08/25/24 08:00 Mechanical Vent 08/25/24 08:00 08/25/24 08:00 91 H 08/25/24 07:36 91 H 20 94 08/25/24 07:18 91 H 18 94 08/25/24 07:00 114/55 L 08/25/24 07:00 114/55 L 08/25/24 06:54 91 H 17 93 08/25/24 06:49 92 H 08/25/24 05:06 87 19 96 Mechanical Vent 08/25/24 05:00 37.2 C 111/60 08/25/24 04:57 88 19 95 Mechanical Vent 30 08/25/24 04:33 88 20 95 08/25/24 04:27 87 20 95 FiO2 08/25/24 14:34 30 08/25/24 14:15 08/25/24 13:51 08/25/24 12:48 08/25/24 12:36 08/25/24 12:21 08/25/24 12:06 08/25/24 12:00 30 08/25/24 12:00 08/25/24 11:36 08/25/24 11:15 08/25/24 11:00 08/25/24 10:48 08/25/24 10:36 30 08/25/24 10:33 08/25/24 10:00 08/25/24 10:00 08/25/24 09:42 08/25/24 09:33 08/25/24 09:21 08/25/24 09:09 08/25/24 09:01 08/25/24 09:01 08/25/24 09:00 08/25/24 08:56 08/25/24 08:06 08/25/24 08:00 30 08/25/24 08:00 30 08/25/24 08:00 08/25/24 07:36 30 08/25/24 07:18 08/25/24 07:00 08/25/24 07:00 08/25/24 06:54 08/25/24 06:49 08/25/24 05:06 08/25/24 05:00 08/25/24 04:57 08/25/24 04:33 08/25/24 04:27
--- NOTE | 2024-08-25 16:23 | Nephrology Progress Note ---
Date of Service August 25, 2024 Assessment & Plan (1) Hypocalcemia: Plan: still CRITICAL hypocalcemia starting 72 hrs after bisphosphonate for severe hypercalcemia, cause for original ca elevation unclear corrected Ca 13.8, Ca 12.8 on 08/20; Ca 12.4 on 08/21; Ca 9.4 on 08/22, 4.9 on 08/23 25 OH D 26; phos 2.7 PTH 7 on 08/19 hypercalcemia RESOLVED after low dose bisphosphonate; hopefully his MS will improve with lower calcium; notably at [facility] admission 08/02-08/11 he was consistently hypophosphatemic and hypocalcemic hypocalcemic (but not critically so) in [facility] on 08/23 he had critical hypocalcemia Ca 4.9 >> had 11 gm IV Ca on 08/23 plus NG Ca as well; PTH 195 >>>>>> Last Ca today 5.5 >> >>>>again ordered 3 gm IV ca gluconate, hold for Ca > 7.2 -cont ca carbonate suspension 1.3 gm tid NG >gave K 40 mEq elixir -ordered q4h BMP x 5 and run stat/urgent -no further mag/K repletion required -PTH appropriately elevated now -await PTHrp <<not likely to be helpful; done for completeness 945 labs reviewed > Ca 6.1, K 3.5 >gave another 3 gm IV calcium and another 40 NG K (2) JUANA (acute kidney injury): Plan: improving stage 3 oliguric JUANA w/ multiple phases/hits >> admitted from [facility] w/ sepsis versus AIN also on ddx. Admitting creatinine on 08/13 4.5, which was peak value. was slowly improving creatinine and > 2L UOP daily (in setting of elevated Ca) then 08/21 cardiac arrest and in wake of this (and normal/low Ca) oliguria and worsening JUANA but this has stabilized, oliguria resolved on 08/24 and starting to improve Admitted [facility] 08/02-08/11 >> Date Creat Ca C02 consistently 18-19 on these dates; phos in high ones 08/06-08/10 08/08 0.8 7.5 08/09 1.0 7.5 08/10 1.6 6.8 08/11 2.8 6.9 Also during [facility] admission had 08/07 drug reaction to ANCEF w/ rash and F > rounding team thought this might be drug fever. d/c to [facility] 08/11 where he continued to have F, dyspnea, ongoing redness/wound concerns and had at least one dose of rocephin [facility] could be Ischemic or toxic in the setting of Sepsis/vanco. acute interstitial nephritis is also on differential; reluctant to give steroids in setting of therapy for OM and concerns for aspiration PNA; marked eosinophilia (total eos 3X ULN) however urine eos negative x 3 08/23 (some delay/challenges getting test done so in theory could have resolved as well; appreciate nursing/lab teams help w/ urine eos) doubt an abrupt MGUS; could consider GN but he'd need biopsy to diagnose; not obstructed On 08/21 he had a cardiac arrest > became oliguric w/ 125 mL UOP for 12 h ON and 310 total for 08/22 and again 125 mL UOP ON into 08/23; oliguria x 48 hrs resolved now 1.8 gm proteinuria >last F 08/23 1230 > 38.2 >>>mild volume overload but autodiuresing >>>slightly worse JUANA after cardiac arrest improving now > today creatinine plateau'd but UOP improving >>critical hypocalcemia; for now hypokalemia, hypomagnesemia controlled/resolved (though K supplemented past 24 hr) >pressors as needed to keep MAP > 65 >agree with [facility] 150 mL q6h no major issues with fluid overload and/or lytes except Ca I and O charting. Daily renal panel and CBC. maintain good hemodynamics. Hold metformin, Jardiance, Lisinopril. No NSAIDS, no contrast agents (3) Sepsis: Plan: Source is diabetic Ulcer/OM with recent complications now +/- aspiration w/ TF versus other; defervesced >>he did have C glabrata >100K on urine cx at admission and had thrush at [facility] > ordered fungal blood cx; smear negative >LP deferred for now while pending MS tanesha (4) Encephalopathy chronic: Plan: chronic, eg, multiple days; since I started service on 08/20 >> withdraws to painful stim only one month ago this pt was working/ living independently confused/ sluggish but awake on 08/13 arrival > knew name and that was in hospital; had been sent d/t F, AMS by 08/16 neuro c/s for encephalopathy > difficult to arouse at that time but arouseable, would say name since then 08/20 my arrival and per RN report from 08/19, withdraws to painful stim only >> ?multifactorial from hypercalcemia plus other? intubated evening 08/21 (5) Hypercalcemia: Plan: RESOLVED after low dose bisphosphonate; hopefully his MS will improve with lower calcium MONITOR for hypocalcemia, which he had in [facility] corrected Ca 13.8, Ca 12.8 on 08/20; Ca 12.4 on 08/21; Ca 9.4 on 08/22 25 OH D 26; phos 3.9 PTH 7 on 08/19 calcitonin IM 400 units q 12h x 2 days - started 08/20 >>stopped calcitonin lower dose zoledronic acid > 2 mg IV (reduced dose run slowly over 60 min) given 08/20 no obvious meds causing this, at least not this admission; notably at [facility] admission 08/02-08/11 he was consistently hypophosphatemic and hypocalcemic hold IVF for now >>await PTHrp <<not likely to be helpful; done for completeness >>pls check phos, mag, ca daily Admission and Anticipated Discharge Date Admission Date: August 14, 2024 Physical Exam 2 Constitutional: well developed (intubated), well nourished and + altered mental status; no acute distress ENMT: Ears: no external ear abnormality Nose: no external nose abnormality Mouth: + dry oral mucous membranes Neck: no nuchal rigidity Respiratory: normal respiratory effort and + tachypneic; no respiratory distress Auscultation: + diminished lung sounds and + rhonchi Cardiovascular: Rate/Rhythm: regular rate and regular rhythm Extremities: + edema (1+ dependent) Gastrointestinal (Abdomen): Inspection/Auscultation: + abdomen distended and normal bowel sounds Percussion/Palpation: abdomen soft; abdomen nontender Skin: no rashes, warm and dry Results & Data Vital Signs (Past 12 Hours) Vital Signs Temp Pulse Resp BP Pulse Ox O2 Del Method O2 Flow Rate 08/25/24 14:34 97 H 18 96 08/25/24 14:15 37.9 C H 98 H 18 96 08/25/24 13:51 38.0 C H 101 H 22 94 08/25/24 12:48 37.8 C H 98 H 25 H 92 08/25/24 12:36 37.8 C H 96 H 24 91 08/25/24 12:21 37.8 C H 95 H 25 H 93 08/25/24 12:06 37.8 C H 93 H 22 93 08/25/24 12:00 08/25/24 12:00 97 H 08/25/24 11:36 37.7 C H 94 H 18 94 08/25/24 11:15 37.7 C H 96 H 17 93 08/25/24 11:00 37.6 C H 96 H 19 91 08/25/24 10:48 37.6 C H 97 H 22 92 08/25/24 10:36 91 H 22 94 08/25/24 10:33 96 H 19 93 08/25/24 10:00 98/53 L 08/25/24 10:00 98/53 L 08/25/24 09:42 94 H 20 94 08/25/24 09:33 94 H 19 94 08/25/24 09:21 94 H 21 93 08/25/24 09:09 95 H 16 93 08/25/24 09:01 112/63 08/25/24 09:01 112/63 08/25/24 09:00 96 H 23 91 08/25/24 08:56 37.6 C H 08/25/24 08:06 90 21 95 08/25/24 08:00 Mechanical Vent 08/25/24 08:00 08/25/24 08:00 91 H 08/25/24 07:36 91 H 20 94 08/25/24 07:18 91 H 18 94 08/25/24 07:00 114/55 L 08/25/24 07:00 114/55 L 08/25/24 06:54 91 H 17 93 08/25/24 06:49 92 H 08/25/24 05:06 87 19 96 Mechanical Vent 08/25/24 05:00 37.2 C 111/60 08/25/24 04:57 88 19 95 Mechanical Vent 30 08/25/24 04:33 88 20 95 08/25/24 04:27 87 20 95 FiO2 08/25/24 14:34 30 08/25/24 14:15 08/25/24 13:51 08/25/24 12:48 08/25/24 12:36 08/25/24 12:21 08/25/24 12:06 08/25/24 12:00 30 08/25/24 12:00 08/25/24 11:36 08/25/24 11:15 08/25/24 11:00 08/25/24 10:48 08/25/24 10:36 30 08/25/24 10:33 08/25/24 10:00 08/25/24 10:00 08/25/24 09:42 08/25/24 09:33 08/25/24 09:21 08/25/24 09:09 08/25/24 09:01 08/25/24 09:01 08/25/24 09:00 08/25/24 08:56 08/25/24 08:06 08/25/24 08:00 30 08/25/24 08:00 30 08/25/24 08:00 08/25/24 07:36 30 08/25/24 07:18 08/25/24 07:00 08/25/24 07:00 08/25/24 06:54 08/25/24 06:49 08/25/24 05:06 08/25/24 05:00 08/25/24 04:57 08/25/24 04:33 08/25/24 04:27 Laboratory Results 08/25/24 03:11 08/25/24 14:09
--- NOTE | 2024-08-25 16:26 | Communication Note ---
Date of Service: August 25, 2024 1400 Ca 6.8 which w/ albumin 1.7 corrects to 8.6 -continue aggressive NG repletion -no IV repletion indicated at this time >>>suggest primary service overnight continue to monitor Ca and BMP q 4-6 hours and replete lytes as needed particularly calcium
[2024-08-25 19:32] LABS: BUN Creatinine Ratio 15.9 (10-20); Calcium 6.5 mg/dl (8.6-10.3); Creatinine Clr Calc Pharmacy 24.2 ml/min; Potassium 3.7 mmol/L (3.5-5.1)
[2024-08-25] MEDS: POTASSIUM CHLORIDE 20 MEQ/15 ML UDC PO STA (19:58)
[2024-08-25 23:26] LABS: Creatinine Clr Calc Pharmacy 24.5 ml/min; Potassium 4.3 mmol/L (3.5-5.1)
[2024-08-26 02:24] LABS: Calcium 6.3 mg/dl (8.6-10.3); Creatinine Clr Calc Pharmacy 25.3 ml/min; Potassium 4.3 mmol/L (3.5-5.1)
[2024-08-26] MEDS: CALCIUM CHLORIDE 10% 1,000 MG in DEXTROSE 5% 50 ML IV STA (03:04)
[2024-08-26] MEDS: CALCIUM CHLORIDE 10% 1,000 MG in DEXTROSE 5% 50 ML IV ONE (03:22)
[2024-08-26 04:49] LABS: Hematocrit (blood only) 27.1 % (42.0-52.0); Hemoglobin 8.3 g/dl (14.0-18.0); Mean Corpuscular Hemoglobin 30.1 pg (25.0-34.0); Mean Corpuscular Hgb Conc 30.6 g/dL (32.0-36.0); Mean Corpuscular Volume 98.2 fL (80.0-100.0); Mean Platelet Volume 9.6 fL (9.4-12.4); Nucleated RBC # (auto) 0.22 K/uL (0.00-0.12); Nucleated RBC % (auto) 2.4 %; Platelet Count 277 K/uL (130-400); RDW Coefficient of Variation 19.9 % (11.5-14.5); RDW Standard Deviation 63.8 fL (36.4-46.3); Red Blood Count 2.76 M/uL (4.70-6.10); White Blood Count 9.21 K/ul (4.8-10.8)
[2024-08-26 05:24] LABS: Anion Gap 8 (3-11); BUN Creatinine Ratio 16.2 (10-20); Blood Urea Nitrogen 54 mg/dl (6-23); Calcium 7.3 mg/dl (8.6-10.3); Carbon Dioxide 22 mmol/L (21-32); Chloride 114 mmol/L (98-107); Creatinine Clr Calc Pharmacy 25.6 ml/min; Glucose 176 mg/dl (70-99(Fasting)); Phosphorus 2.2 mg/dl (2.5-4.9); Potassium 4.1 mmol/L (3.5-5.1); Sodium 144 mmol/L (136-145)
[2024-08-26 06:01] LABS: Basophils # (auto) 0.02 K/uL (0.00-0.20); Basophils % (auto) 0.2 %; Immature Granulocytes # (auto) 0.72 K/uL (0.01-0.20); Immature Granulocytes % (auto) 7.8 %; Lymphocytes # (auto) 0.92 K/uL (1.20-3.40); Monocytes # (auto) 0.44 K/uL (0.11-0.59); Monocytes % (auto) 4.8 %; Neutrophils # (auto) 7.11 K/uL (1.40-6.50); Neutrophils % (auto) 77.2 %; Polychromasia 1+; Tear Drop Cells 1+
--- NOTE | 2024-08-26 08:03 | Critical Care Progress Note ---
Date of Service August 26, 2024 Assessment & Plan (1) Hypercalcemia: (2) Transaminitis: (3) Encephalopathy: (4) Cellulitis of left lower extremity: (5) Diabetic foot ulcer: (6) JUANA (acute kidney injury): (7) Cardiac arrest: (8) Shock circulatory: Plan Reason Critically Ill: 63-year-old male admitted to the hospital for lower extremity cellulitis as well as osteomyelitis for right foot ulcer Past medical history: Seizures, dyslipidemia, diabetes, hypertension, history of lung cancer Neuro - [facility]: Unable to assess -- Encephalopathy Multifactorial Hypercalcemia with calcium of 12.4, corrected calcium around 14 --> resolved --> now hypocalcemic Ammonia 64 Elevated TSH with normal free T4 Questionable anoxic brain injury Cardiac arrest 08/21/2024 CT head negative 08/19/2024 --> repeat CT head 08/25/2024 did not show any abnormality especially relating to anoxic injury Brain MRI 08/16/2024 negative Cardiac - 2D echo 08/21/2024: EF greater than 70%, mild concentric LVH, borderline RV enlargement, no significant valvular disease, no pericardial effusion -- Cardiac arrest with shock Patient had bradycardia and then asystole on the telemetry strip Continue with vasopressor support to keep MAP greater than 65 --Anasarca with severe protein-calorie malnutrition Albumin 2 Respiratory - -- VDRF For airway protection from cardiac arrest Continue with ventilatory support Keep RASS -1 Daily sedation holidays and SBT's --Right lower lobe aspiration pneumonia On antibiotics -- Chronic elevation of the right hemidiaphragm GI - --Transaminitis Etiology is likely coming from medication/antibiotic initially followed by cardiac arrest Used to be on vancomycin as an outpatient, also got cefepime while he was in the hospital as well as Depakote Trending down Continue to monitor Hepatitis panel - negative on 08/19/2024 Liver ultrasound 08/24/2024: Prominent pancreas, pericholecystic, hepatic steatosis RENAL/LYTES - -- JUANA on CKD Avoid nephrotoxic medication Monitor BUNs/creatinine -- S/p hypernatremia with hyperchloremia Getting free water flushes through the OGT -- Status post hypercalcemia Appreciated after coming to the hospital PTH less than 7, goes along with secondary hypercalcemia Patient did get 3 doses calcitonin as well as 1 dose of zalendronic acid Etiology for hypercalcemia is unclear. Patient was eucalcemic when he came in and actually hypocalcemic when he was admitted at [facility] last month. He did not get any fluids to cause hypercalcemia Querry MGUS, MDS versus multiple myeloma ENDO - -- Diabetes type 2 ICU hypoglycemia protocol HEME - -- Normocytic anemia Monitor H&H ID - -- Osteomyelitis On antibiotics, infectious disease on board Procalcitonin> 100 on presentation, downtrending --Right lower lobe aspiration pneumonia On meropenem Will complete the course of meropenem for total of 6 days. Then go back to daptomycin as per infectious disease recommendation Complete the tapering dose of hydrocortisone --Loose bowel movement Negative for C. difficile toxin and antigen --Prophylaxis VTE: Heparin GI: Pantoprazole Lines: Right radial, right arm PICC Diet: Tube feeds Plan: In/out: + 1192, urine output 1242 ml, +15 L since coming to the hospital Continue with water flushes 150 mL every 6 Phosphorus being replaced. Corrected calcium within normal limit today Will get MRI of the brain without contrast, will use vecuronium just prior to the MRI to decrease the motion artifact. Urine output improving Overall prognosis is guarded After discussion with the family, decision was made to not to escalate the care continue with vasopressor support but no CPR in future if need be Patient would not want trach as per the family I have personally spent 36 minutes of critical care time in the direct management of this patient. This is a life/limb threatening event. This includes time spent evaluating patient, direct bedside care, chart review, placing orders, interpretation of diagnostic studies, discussion with consultants, patient, and family members, as well as other required patient management activities. This time is exclusive of all separately billable procedures, and teaching time and separate from and in addition to any other critical care service time. Admission and Anticipated Discharge Date Admission Date: August 14, 2024 Subjective Patient seen and examined at bedside. No acute distress, no adverse events overnight He was on pressure support 5/5, 30% FiO2 saturating 94-95% He was on 40 of propofol and 150 of fentanyl. Has been afebrile Still having dyssynchrony with the ventilator even on sedation Review of Systems 2 Review of Systems: All systems reviewed & are unremarkable except as noted in Subjective Physical Exam 2 Physical Exam: Constitutional: No respiratory distress HEENT: PERRLA, positive ETT Respiratory system: Decreased air entry bilaterally, no wheeze, no rhonchi, positive crackles bilateral lower lobe CVS: S1-S2 positive, no murmurs or gallops Abdomen: Soft, nontender, nondistended, positive bowel sounds x4 Extremities: +2 pulses bilaterally radialis/ dorsalis pedis, no cyanosis, +2 pitting edema bilateral lower extremity, right first and second toe amputation Neuro: Breathing over the vent, spontaneously moving extremities not purposefully, does not follow any commands Psych: Unable to assess G/U: Positive Sarmiento Skin: no rashes, warm and dry Lymphatic: no cervical or axillary lymphadenopathy Results & Data Results & Data Vital Signs (Past 12 Hours) Vital Signs Temp Pulse Resp BP Pulse Ox O2 Del Method FiO2 08/26/24 07:30 100 H 23 98 30 08/26/24 06:00 140/80 08/26/24 06:00 140/80 08/26/24 05:54 97 H 21 96 30 08/26/24 05:51 99 H 17 98 08/26/24 05:45 99 H 16 98 08/26/24 05:36 96 H 18 97 08/26/24 05:15 98 H 20 96 08/26/24 05:00 122/79 08/26/24 05:00 100 H 24 94 08/26/24 04:42 96 H 20 95 08/26/24 04:15 37.2 C 96 H 18 99 08/26/24 04:00 37.2 C 97 H 21 98 08/26/24 04:00 126/73 08/26/24 04:00 126/73 08/26/24 04:00 30 08/26/24 03:57 37.2 C 97 H 22 99 08/26/24 03:50 95 H 22 98 30 08/26/24 03:33 37.2 C 96 H 16 98 08/26/24 03:06 37.2 C 96 H 19 98 08/26/24 02:45 37.3 C 95 H 21 99 08/26/24 02:39 37.2 C 96 H 16 99 08/26/24 02:24 37.2 C 96 H 16 99 08/26/24 01:45 37.2 C 94 H 18 98 08/26/24 01:33 37.2 C 94 H 19 97 08/26/24 01:23 93 H 08/26/24 01:15 37.2 C 93 H 20 97 08/26/24 01:06 37.2 C 93 H 17 97 08/26/24 00:50 90 22 96 30 08/26/24 00:45 37.2 C 89 19 97 08/26/24 00:00 117/67 08/26/24 00:00 30 08/25/24 23:39 37.2 C 91 H 20 96 08/25/24 23:36 37.2 C 90 16 97 08/25/24 23:26 Mechanical Vent 30 08/25/24 23:12 37.3 C 91 H 18 96 08/25/24 23:00 103/56 L 08/25/24 22:45 37.6 C H 93 H 19 97 08/25/24 22:42 37.6 C H 94 H 18 96 08/25/24 21:45 37.8 C H 101 H 24 94 08/25/24 21:39 101 H 21 96 30 08/25/24 21:09 37.8 C H 102 H 17 94 08/25/24 21:00 109/63 08/25/24 21:00 109/63 08/25/24 20:54 37.7 C H 101 H 26 H 92 08/25/24 20:30 37.7 C H 100 H 27 H 91 08/25/24 20:21 37.7 C H 98 H 26 H 92 08/25/24 20:06 37.7 C H 96 H 23 94 Laboratory Results 08/26/24 04:24 08/26/24 04:24 Coding Level of Care Code 26984 CRITICAL CARE 1ST 30-74M Diagnoses Hypercalcemia E83.52 Transaminitis R74.01 Encephalopathy G93.40 Cellulitis of left lower extremity L03.116 Diabetic foot ulcer E11.621; L97.412 Diabetes mellitus type: type 2 Diabetic foot ulcer location: midfoot Laterality: right Non-pressure ulcer stage: with fat layer exposed JUANA (acute kidney injury) N17.9 Cardiac arrest I46.9 Shock circulatory R57.9 (5) Diabetic foot ulcer Diabetes mellitus type: type 2 Diabetic foot ulcer location: midfoot L aterality: right Non-pressure ulcer stage: with fat layer exposed Qualified Code(s): E11.621 - Type 2 diabetes mellitus with foot ulcer; L97.946 - Non- pressure chronic ulcer of right heel and midfoot with fat layer exposed
--- NOTE | 2024-08-26 08:18 | XRay Report ---
EXAM: XR chest 1V portable CLINICAL HISTORY: Eval tubes/lines/lung [place] while intubated TECHNIQUE: An X-ray image of the chest is obtained in AP projection. COMPARISON: 08/24/2024 FINDINGS: ETT with its tip 3.0 cm above the mauricio. NG tube noted in situ. The tip is seen below the hemidiaphragm. Right CVL is noted. The tip is seen in the cavoatrial junction. Pulmonary Parenchyma: Right hemidiaphragm is raised. Right CP angle is obliterated may favor pleural reaction. Numerous chest tubes are appreciated. Increased vascular markings are noted in bilateral perihilar regions may favor vascular congestion. Heart and Mediastinum: Cardiac size is enlarged. No mediastinal widening or masses. No hilar or mediastinal lymphadenopathy. Bony Thorax: Bony thorax appears intact without fractures or deformities. Soft Tissues: Soft tissues overlying the chest wall are unremarkable. IMPRESSION: 1. ETT with its tip 3.0 cm above the mauricio. 2. NG tube noted in situ. The tip is seen below the hemidiaphragm. 3. Right CVL is noted. The tip is seen in the cavoatrial junction. 4. Right hemidiaphragm is elevated. 5. Right CP angle is obliterated may favor pleural reaction. 6. No significant interval change. Electronically signed by Rajani Jenkins 08-26-2024 08:18 AM
[2024-08-26] MEDS ORDERED: POTASSIUM PHOS 3 MMOL/1 ML INFUSION IV STA (09:36)
[2024-08-26] MEDS: POTASSIUM PHOSPHATE 8 MMOL in SODIUM CHLORIDE 0.9% 250 ML IV ONE (10:00)
[2024-08-26] MEDS: VECURONIUM BROMIDE 10 MG VIAL IV ONE (13:24)
[2024-08-26] MEDS: VECURONIUM BROMIDE 10 MG VIAL IV STA (13:25)
--- NOTE | 2024-08-26 14:39 | Hospitalist Progress Note ---
Date of Service August 26, 2024 Assessment & Plan (1) Sepsis: Plan: Per previous hospitalist w/ addendum 63-yo M w/ type 2 diabetes, diabetic ulcer of right midfoot, dyslipidemia, hypophosphatemia, hypertension, history of C. difficile colitis, oral thrush, cellulitis of right leg, abscess of right foot, absent seizures, history of lung cancer, was sent in by [facility] rehab because of confusion and fevers. Patient was in [facility] from 08/02/2024 to 08/11/2024. He was admitted to the [facility] for right foot swelling and redness and fevers. And right foot x-ray showed healed fracture through the midshaft of second metatarsal bone with calcified bridging callus. Pes planus. He was admitted for right foot infection. MRI of the foot was negative for osteomyelitis and showed cellulitis and possible abscess. Status post I&D by podiatry at bedside on August 03 with a deep purulence obtained and sent for culture. Status post I&D with podiatry for sepsis on August 06 and probe to bone very favorable and no clear abscess as suggested by CT scan. During hospital stay he was also completed Tamiflu for influenza. ID suggested Ancef until September 17 and to treat as osteomyelitis for MSSA on wound cultures with 6 weeks of IV antibiotics. On August 07 patient had rash thought to be from Ancef. Rash was worsening after second dose of Ancef and patient was having fevers that thought to be lined up from Ancef doses and was thought possible drug fever. And ID recommended IV Vanco via PICC line. Vancomycin dosing goal AUC 400-600 Mg/liter/hour. And patient was discharged to [facility] on 08/11/2024. At [facility] patient was still having fevers and shortness of breath and erythema around his wound ,does not appear to be receding thought to be spreading. [facility] made ID aware. As per the med rec from the [facility] seems patient had Rocephin. And was sent to our ER today because of fever and altered mental status. Patient can tell his name. Knows that he is in the hospital. Could tell his date of . But could not tell current dates. Denies any cough. Denies headache. Denies chest pain. Denies shortness of breath. Denies belly pain. Status post Sarmiento in the ER. Patient seems poor historian at this time. No sacral ulcer seen. 08/21/[address] Canchola - Code Blue Patient noted to be bradycardic and pale while getting oral care today. Patient was noted to have heart rate in 50-40s and became tachypneic. Prior to the episode, tube feeds were held for oral care per RN. Initially code purple was called and later changed to CODE BLUE and ACLS protocol was performed. Patient required CPR and needed intubation for respiratory support. IV epinephrine was administered per protocol. Chest x-ray, ABG, blood work ordered post intubation. Patient was will be transferred to ICU for further management. Critical care consulted. Updated patient's family over the phone. Sepsis Bilateral lower extremity cellulitis Right foot diabetic ulcer Recently on [facility] was placed on IV Vanco for 6 weeks until September 17 to treat his osteomyelitis though MRI was negative and abscess was I&D by podiatry at [facility] --Right Foot X ray: No definite radiographic evidence of osteomyelitis as described. --Venous Doppler:No evidence of deep venous thrombus within the bilateral lower extremities. --Arterial Doppler:Negative right lower extremity arterial evaluation. No occlusion or significant hemodynamic stenosis with multiphasic waveforms throughout. --CT ABD:No bowel obstruction. Severe hepatic steatosis. Hepatomegaly. Anasarca. Small amount of ascites within the pelvis. -- Blood cultures negative to date -- Urine culture: Heather glabrata IV cefepime discontinued as recommended by infectious disease/neurology Received IV fluids, monitor volume status closely Avoid IV Vanco as trough level high, JUANA Appreciate infectious disease input: Once Vanco trough drops < 15 will start the patient on IV daptomycin. (Will renally dose IV daptomycin through 09/17/24) Appreciate Podiatry Input : Given ongoing treatment, will defer MRI foot for now Continue local wound care Aspiration precautions Vanco trough 14.2 on 08/20/[address] Canchola Discussed with ID on 08/21: Recommends to change Dapto, Zosyn to meropenem today. Recommends lumbar puncture. Hold antivirals for lumbar puncture per ID, Consulted IR for lumbar puncture tomorrow 08/22 Currently pt intubated, s/p code blue episode as above Pt on vasopressors, febrile 08/24 Reached out to ID for further recommendations - when finished w/ meropenem - cont. w/ daptomycin for osteomyelitis 08/25 Off pressors Acute metabolic encephalopathy Likely due to above infection/meds DD: Meningitis, encephalitis Suspected urinary tract infection--Less likely --Head CT:No acute findings in the head/brain. --Urine culture: as above --MRI Brain:No evidence of acute or subacute infarct. Reorient frequently to minimize delirium Repeat CT head showed no acute process -Normal ammonia level -Drug screen negative -VBG showed no hypercarbia -TSH elevated, normal free T4 --Thiamine B1 level pending -EEG: This is an abnormal routine EEG in a patient w altered mental state due to 1. Generalized background slowing suggestive of non specific encephalopathy, 2. Triphasic waves which are non specific but commonly seen in metabolic encephalopathies. --Lamictal levels 6.6 --Elevated INR--received vitamin K Could not get lumbar puncture initially due to elevated INR/patient agitated INR 1.4 on 08/23 Valproic acid held due to rising LFTs. Neurology aware Monitor ammonia levels, received a dose of lactulose on 08/20/2024 Appreciate neurology input. 08/25 CT head - 1. No acute intracranial findings. 2. Exam moderately compromised by motion artifact. However, no CT evidence for anoxic injury. 08/26 MR brain pending Acute kidney injury likely ATN/toxic secondary to infection, vancomycin/AIN Cr: 4.4>4.1>4.0> 3.8 Creatinine was 1.6 on 08/12/2024 --CT ABD:Mild nonspecific perinephric stranding. No hydronephrosis. Simple 2 cm left renal cyst. No follow-up of this simple cyst is necessary. 08/22 -- current Cr 4.19 - nephrology/ critical care discussed poss. HD w/pt's family 08/24 Cr 3.9 08/25 Cr 3.6 08/26 Cr 3.3 Avoid nephrotoxic agents as able Monitor renal function, urinary output Bladder scan as needed Metformin, Jardiance, lisinopril on hold Avoid NSAIDs Monitor for volume status Received IV fluid Appreciate nephrology input Hypercalcemia --> now hypocalcemia (after hypercalcemia treatment) Hypernatremia Likely due to dehydration Low PTH, vitamin D levels PTH related peptide pending IV fluids as recommended by nephrology Monitor electrolytes closely Also on free water flushes through NG tube Started on calcitonin, Zometa Monitor calcium levels Calcium 12.4 on 08/21 - > (08/22) 9.4 -> 7.4 Sodium 149 on 08/21 -> now 150/148 (essentially unchanged) 08/23 calcium now down (Hypocalcemia) after treatment, ca being replaced - discussed w/ nephrology 08/24 calcium continues to be critically low, 5.6 today, needs replacement Unclear cause of hypercalcemia 08/25 Ca 5.5 - calcium replacement needed today again 3.2 Ca 6.3 Transaminitis Likely due to sepsis, fatty liver --CT ABD:Hepatic steatosis. Hepatomegaly. Minimal free fluid around the liver and in the pelvis. --Hepatitis panel pending --Gall Bladder USD: Trace ascites. Normal sonographic appearance of the gallbladder. Large fatty liver. --Elevated INR Monitor LFTs Hold Lipitor for now GI following Valproate held due to worsening LFTs Hyponatremia--Resolved then hypernatremic as above Anemia Iron deficiency anemia Anemia of chronic disease No obvious signs of bleeding Vit B12, folate levels reviewed Monitor CBC Started on iron supplements Hypertension Hold lisinopril Continue atenolol with holding parameters Monitor DM II Hold home medications Adjust insulin per protocol to minimize hypoglycemic episodes Monitor blood glucose levels Hyperlipidemia Hold statin due to elevated LFTs History of seizures On Lamictal Monitor Remote history of lung cancer Treated with chemo as per records DVT Px: Heparin SQ Code Status Full code Disposition- currently ICU, prognosis guarded Admission and Anticipated Discharge Date Admission Date: August 14, 2024 Subjective Pt seen in follow up Pt was code blue/ cardiac arrest on 08/21 evening -> now in ICU Prior to this admission pt in [place] with diabetic foot / ? abscess/ cellulitis ? osteo Admitted here with JUANA, AMS, also elevated LFTs Intubated, on pressors, febrile Does not respond to voice or tactile stimuli at this time. Discussed w/ RN Nephrology, cardiology, GI, ID consulted Discussed poss. HD in the future Discussed w/ nephrology - treatment for hypercalcemia -> now hypocalcemic, Ca replaced. Needs Ca replacement now Diarrhea, hx of c. diff - stool tested negat. c. diff gene Discussed w/ ID - after meropenem course, start daptomycin for OM Now pt is off pressors CT head obtained yesterday - negative for acute pathology MR brain today - results pending Two granddaughters present at the bedside and discussed with , also obtained additional history from another family member (pt's son Valdemar over the phone). Reports pt was very groggy when he came to [facility] and then gradually got better to his normal with treatment of leg infection. Initially pt was doing well at snf after discharge, then again became groggy and was very slowly answering/ responding , Valdemar was present with the pt at ER here. Review of Systems Review of Systems: Unobtainable due to cognitive status and Unobtainable due to endotracheal tube Physical Exam Physical Exam: General Appearance: Moderately built and nourished, intubated Head: normocephalic, Atraumatic Neck: + IJ placed Respiratory/Chest: decreased air entry b/l, no wheezing Cardiovascular: S1, S2, No murmur Abdomen/GI:Soft, Bowel sounds present Extremities/Musculoskeletal:normal inspection, 1-2+ B/L LE edema, erythema, R great toe s/p amputation, R foot ulcer Neurologic/Psych: does not open eyes to voice or tactile stimuli on my exam, does not follow commands Skin: warm, dry Results & Data Results & Data Vital Signs (Past 12 Hours) Vital Signs Temp Pulse Resp BP Pulse Ox O2 Del Method FiO2 08/26/24 14:23 99 H 19 95 30 08/26/24 12:00 30 08/26/24 12:00 102 H 08/26/24 11:09 102 H 25 H 95 08/26/24 11:00 148/85 H 08/26/24 10:43 102 H 25 H 979 H 30 08/26/24 10:12 99 H 24 96 08/26/24 10:00 136/76 08/26/24 09:03 101 H 24 100 08/26/24 09:01 141/81 H 08/26/24 09:00 100 H 24 100 08/26/24 08:02 98 H 18 98 08/26/24 08:00 132/75 08/26/24 08:00 Mechanical Vent 30 08/26/24 08:00 30 08/26/24 08:00 100 H 08/26/24 08:00 36.5 C 08/26/24 07:30 100 H 23 98 30 08/26/24 07:01 106/82 08/26/24 06:59 100 H 23 99 Mechanical Vent 30 08/26/24 06:00 140/80 08/26/24 06:00 140/80 08/26/24 05:54 97 H 21 96 30 08/26/24 05:51 99 H 17 98 08/26/24 05:45 99 H 16 98 08/26/24 05:36 96 H 18 97 08/26/24 05:15 98 H 20 96 08/26/24 05:00 122/79 08/26/24 05:00 100 H 24 94 08/26/24 04:42 96 H 20 95 08/26/24 04:15 37.2 C 96 H 18 99 08/26/24 04:00 37.2 C 97 H 21 98 08/26/24 04:00 126/73 08/26/24 04:00 126/73 08/26/24 04:00 30 08/26/24 03:57 37.2 C 97 H 22 99 08/26/24 03:50 95 H 22 98 30 08/26/24 03:33 37.2 C 96 H 16 98 08/26/24 03:06 37.2 C 96 H 19 98 08/26/24 02:45 37.3 C 95 H 21 99 08/26/24 02:39 37.2 C 96 H 16 99 Laboratory Results 08/26/24 08/26/24 08/26/24 Range/Units 14:15 12:39 11:35 WBC (4.8-10.8) K/ul RBC (4.70-6.10) M/uL Hgb (14.0-18.0) g/dl Hct (42.0-52.0) % MCV (80.0-100.0) fL MCH (25.0-34.0) pg MCHC (32.0-36.0) g/dL RDW Std Deviation (36.4-46.3) fL RDW Coeff of Eladio (11.5-14.5) % Plt Count (130-400) K/uL MPV (9.4-12.4) fL Immature Gran % (Auto) % Neut % (Auto) % Lymph % (Auto) % [place] % (Auto) % Eos % (Auto) % Baso % (Auto) % Neut # (Auto) (1.40-6.50) K/uL Lymph # (Auto) (1.20-3.40) K/uL [place] # (Auto) (0.11-0.59) K/uL Eos # (Auto) (0.00-0.50) K/uL Baso # (Auto) (0.00-0.20) K/uL Immature Gran # (Auto) (0.01-0.20) K/uL Absolute Nucleated RBC (0.00-0.12) K/uL Nucleated RBC % (auto) % Polychromasia Tear Drop Cells Sodium (136-145) mmol/L Potassium (3.5-5.1) mmol/L Chloride (98-107) mmol/L Carbon Dioxide (21-32) mmol/L Anion Gap (3-11) BUN (6-23) mg/dl Creatinine (0.6-1.4) mg/dl Est Cr Clr Drug Dosing ml/min eGFR BUN/Creatinine Ratio (10-20) Glucose (70-99(Fasting)) mg/dl POC Glucose 180 H 196 H 188 H (70-99) mg/dl POC Glucose (other) (70-99) mg/dl Calcium (8.6-10.3) mg/dl Phosphorus (2.5-4.9) mg/dl Magnesium PTH Related Protein (11-20) pg/mL 08/26/24 08/26/24 08/26/24 Range/Units 09:43 08:31 07:39 WBC (4.8-10.8) K/ul RBC (4.70-6.10) M/uL Hgb (14.0-18.0) g/dl Hct (42.0-52.0) % MCV (80.0-100.0) fL MCH (25.0-34.0) pg MCHC (32.0-36.0) g/dL RDW Std Deviation (36.4-46.3) fL RDW Coeff of Eladio (11.5-14.5) % Plt Count (130-400) K/uL MPV (9.4-12.4) fL Immature Gran % (Auto) % Neut % (Auto) % Lymph % (Auto) % [place] % (Auto) % Eos % (Auto) % Baso % (Auto) % Neut # (Auto) (1.40-6.50) K/uL Lymph # (Auto) (1.20-3.40) K/uL [place] # (Auto) (0.11-0.59) K/uL Eos # (Auto) (0.00-0.50) K/uL Baso # (Auto) (0.00-0.20) K/uL Immature Gran # (Auto) (0.01-0.20) K/uL Absolute Nucleated RBC (0.00-0.12) K/uL Nucleated RBC % (auto) % Polychromasia Tear Drop Cells Sodium (136-145) mmol/L Potassium (3.5-5.1) mmol/L Chloride (98-107) mmol/L Carbon Dioxide (21-32) mmol/L Anion Gap (3-11) BUN (6-23) mg/dl Creatinine (0.6-1.4) mg/dl Est Cr Clr Drug Dosing ml/min eGFR BUN/Creatinine Ratio (10-20) Glucose (70-99(Fasting)) mg/dl POC Glucose 168 H 164 H (70-99) mg/dl POC Glucose (other) 180 H (70-99) mg/dl Calcium (8.6-10.3) mg/dl Phosphorus (2.5-4.9) mg/dl Magnesium PTH Related Protein (11-20) pg/mL 08/26/24 08/26/24 08/26/24 Range/Units 06:13 05:10 04:24 WBC 9.21 (4.8-10.8) K/ul RBC 2.76 L (4.70-6.10) M/uL Hgb 8.3 L (14.0-18.0) g/dl Hct 27.1 L (42.0-52.0) % MCV 98.2 (80.0-100.0) fL MCH 30.1 (25.0-34.0) pg MCHC 30.6 L (32.0-36.0) g/dL RDW Std Deviation 63.8 H (36.4-46.3) fL RDW Coeff of Eladio 19.9 H (11.5-14.5) % Plt Count 277 (130-400) K/uL MPV 9.6 (9.4-12.4) fL Immature Gran % (Auto) 7.8 % Neut % (Auto) 77.2 % Lymph % (Auto) 10.0 % [place] % (Auto) 4.8 % Eos % (Auto) 0.0 % Baso % (Auto) 0.2 % Neut # (Auto) 7.11 H (1.40-6.50) K/uL Lymph # (Auto) 0.92 L (1.20-3.40) K/uL [place] # (Auto) 0.44 (0.11-0.59) K/uL Eos # (Auto) 0.00 (0.00-0.50) K/uL Baso # (Auto) 0.02 (0.00-0.20) K/uL Immature Gran # (Auto) 0.72 H (0.01-0.20) K/uL Absolute Nucleated RBC 0.22 H (0.00-0.12) K/uL Nucleated RBC % (auto) 2.4 % Polychromasia 1+ Tear Drop Cells 1+ Sodium 144 (136-145) mmol/L Potassium 4.1 (3.5-5.1) mmol/L Chloride 114 H (98-107) mmol/L Carbon Dioxide 22 (21-32) mmol/L Anion Gap 8 (3-11) BUN 54 H (6-23) mg/dl Creatinine 3.34 H (0.6-1.4) mg/dl Est Cr Clr Drug Dosing 25.6 ml/min eGFR 19.65 BUN/Creatinine Ratio 16.2 (10-20) Glucose 176 H (70-99(Fasting)) mg/dl POC Glucose 139 H 188 H (70-99) mg/dl POC Glucose (other) (70-99) mg/dl Calcium 7.3 L (8.6-10.3) mg/dl Phosphorus 2.2 L (2.5-4.9) mg/dl Magnesium TNP PTH Related Protein (11-20) pg/mL 08/26/24 08/26/24 08/26/24 Range/Units 04:02 03:09 02:02 WBC (4.8-10.8) K/ul RBC (4.70-6.10) M/uL Hgb (14.0-18.0) g/dl Hct (42.0-52.0) % MCV (80.0-100.0) fL MCH (25.0-34.0) pg MCHC (32.0-36.0) g/dL RDW Std Deviation (36.4-46.3) fL RDW Coeff of Eladio (11.5-14.5) % Plt Count (130-400) K/uL MPV (9.4-12.4) fL Immature Gran % (Auto) % Neut % (Auto) % Lymph % (Auto) % [place] % (Auto) % Eos % (Auto) % Baso % (Auto) % Neut # (Auto) (1.40-6.50) K/uL Lymph # (Auto) (1.20-3.40) K/uL [place] # (Auto) (0.11-0.59) K/uL Eos # (Auto) (0.00-0.50) K/uL Baso # (Auto) (0.00-0.20) K/uL Immature Gran # (Auto) (0.01-0.20) K/uL Absolute Nucleated RBC (0.00-0.12) K/uL Nucleated RBC % (auto) % Polychromasia Tear Drop Cells Sodium (136-145) mmol/L Potassium (3.5-5.1) mmol/L Chloride (98-107) mmol/L Carbon Dioxide (21-32) mmol/L Anion Gap (3-11) BUN (6-23) mg/dl Creatinine (0.6-1.4) mg/dl Est Cr Clr Drug Dosing ml/min eGFR BUN/Creatinine Ratio (10-20) Glucose (70-99(Fasting)) mg/dl POC Glucose 227 H 202 H 183 H (70-99) mg/dl POC Glucose (other) (70-99) mg/dl Calcium (8.6-10.3) mg/dl Phosphorus (2.5-4.9) mg/dl Magnesium PTH Related Protein (11-20) pg/mL 08/26/24 08/26/24 08/25/24 Range/Units 01:59 00:02 23:13 WBC (4.8-10.8) K/ul RBC (4.70-6.10) M/uL Hgb (14.0-18.0) g/dl Hct (42.0-52.0) % MCV (80.0-100.0) fL MCH (25.0-34.0) pg MCHC (32.0-36.0) g/dL RDW Std Deviation (36.4-46.3) fL RDW Coeff of Eladio (11.5-14.5) % Plt Count (130-400) K/uL MPV (9.4-12.4) fL Immature Gran % (Auto) % Neut % (Auto) % Lymph % (Auto) % [place] % (Auto) % Eos % (Auto) % Baso % (Auto) % Neut # (Auto) (1.40-6.50) K/uL Lymph # (Auto) (1.20-3.40) K/uL [place] # (Auto) (0.11-0.59) K/uL Eos # (Auto) (0.00-0.50) K/uL Baso # (Auto) (0.00-0.20) K/uL Immature Gran # (Auto) (0.01-0.20) K/uL Absolute Nucleated RBC (0.00-0.12) K/uL Nucleated RBC % (auto) % Polychromasia Tear Drop Cells Sodium 143 (136-145) mmol/L Potassium 4.3 (3.5-5.1) mmol/L Chloride 115 H (98-107) mmol/L Carbon Dioxide 22 (21-32) mmol/L Anion Gap 6 (3-11) BUN 54 H (6-23) mg/dl Creatinine 3.38 H (0.6-1.4) mg/dl Est Cr Clr Drug Dosing 25.3 ml/min eGFR 19.37 BUN/Creatinine Ratio 16.0 (10-20) Glucose 182 H (70-99(Fasting)) mg/dl POC Glucose 170 H 168 H (70-99) mg/dl POC Glucose (other) (70-99) mg/dl Calcium 6.3 L (8.6-10.3) mg/dl Phosphorus (2.5-4.9) mg/dl Magnesium PTH Related Protein (11-20) pg/mL 08/25/24 08/25/24 08/25/24 Range/Units 22:43 22:20 21:13 WBC (4.8-10.8) K/ul RBC (4.70-6.10) M/uL Hgb (14.0-18.0) g/dl Hct (42.0-52.0) % MCV (80.0-100.0) fL MCH (25.0-34.0) pg MCHC (32.0-36.0) g/dL RDW Std Deviation (36.4-46.3) fL RDW Coeff of Eladio (11.5-14.5) % Plt Count (130-400) K/uL MPV (9.4-12.4) fL Immature Gran % (Auto) % Neut % (Auto) % Lymph % (Auto) % [place] % (Auto) % Eos % (Auto) % Baso % (Auto) % Neut # (Auto) (1.40-6.50) K/uL Lymph # (Auto) (1.20-3.40) K/uL [place] # (Auto) (0.11-0.59) K/uL Eos # (Auto) (0.00-0.50) K/uL Baso # (Auto) (0.00-0.20) K/uL Immature Gran # (Auto) (0.01-0.20) K/uL Absolute Nucleated RBC (0.00-0.12) K/uL Nucleated RBC % (auto) % Polychromasia Tear Drop Cells Sodium 144 (136-145) mmol/L Potassium 4.3 (3.5-5.1) mmol/L Chloride 117 H (98-107) mmol/L Carbon Dioxide 22 (21-32) mmol/L Anion Gap 5 (3-11) BUN 56 H (6-23) mg/dl Creatinine 3.49 H (0.6-1.4) mg/dl Est Cr Clr Drug Dosing 24.5 ml/min eGFR 18.64 BUN/Creatinine Ratio 16.0 (10-20) Glucose 166 H (70-99(Fasting)) mg/dl POC Glucose 166 H 175 H (70-99) mg/dl POC Glucose (other) (70-99) mg/dl Calcium 6.0 L (8.6-10.3) mg/dl Phosphorus (2.5-4.9) mg/dl Magnesium PTH Related Protein (11-20) pg/mL 08/25/24 08/25/24 08/25/24 Range/Units 20:20 18:37 16:37 WBC (4.8-10.8) K/ul RBC (4.70-6.10) M/uL Hgb (14.0-18.0) g/dl Hct (42.0-52.0) % MCV (80.0-100.0) fL MCH (25.0-34.0) pg MCHC (32.0-36.0) g/dL RDW Std Deviation (36.4-46.3) fL RDW Coeff of Eladio (11.5-14.5) % Plt Count (130-400) K/uL MPV (9.4-12.4) fL Immature Gran % (Auto) % Neut % (Auto) % Lymph % (Auto) % [place] % (Auto) % Eos % (Auto) % Baso % (Auto) % Neut # (Auto) (1.40-6.50) K/uL Lymph # (Auto) (1.20-3.40) K/uL [place] # (Auto) (0.11-0.59) K/uL Eos # (Auto) (0.00-0.50) K/uL Baso # (Auto) (0.00-0.20) K/uL Immature Gran # (Auto) (0.01-0.20) K/uL Absolute Nucleated RBC (0.00-0.12) K/uL Nucleated RBC % (auto) % Polychromasia Tear Drop Cells Sodium 143 (136-145) mmol/L Potassium 3.7 (3.5-5.1) mmol/L Chloride 114 H (98-107) mmol/L Carbon Dioxide 21 (21-32) mmol/L Anion Gap 8 (3-11) BUN 56 H (6-23) mg/dl Creatinine 3.53 H (0.6-1.4) mg/dl Est Cr Clr Drug Dosing 24.2 ml/min eGFR 18.39 BUN/Creatinine Ratio 15.9 (10-20) Glucose 129 H (70-99(Fasting)) mg/dl POC Glucose 186 H 148 H (70-99) mg/dl POC Glucose (other) (70-99) mg/dl Calcium 6.5 L (8.6-10.3) mg/dl Phosphorus (2.5-4.9) mg/dl Magnesium PTH Related Protein (11-20) pg/mL 08/25/24 08/25/24 08/21/24 Range/Units 15:34 14:09 06:50 WBC (4.8-10.8) K/ul RBC (4.70-6.10) M/uL Hgb (14.0-18.0) g/dl Hct (42.0-52.0) % MCV (80.0-100.0) fL MCH (25.0-34.0) pg MCHC (32.0-36.0) g/dL RDW Std Deviation (36.4-46.3) fL RDW Coeff of Eladio (11.5-14.5) % Plt Count (130-400) K/uL MPV (9.4-12.4) fL Immature Gran % (Auto) % Neut % (Auto) % Lymph % (Auto) % [place] % (Auto) % Eos % (Auto) % Baso % (Auto) % Neut # (Auto) (1.40-6.50) K/uL Lymph # (Auto) (1.20-3.40) K/uL [place] # (Auto) (0.11-0.59) K/uL Eos # (Auto) (0.00-0.50) K/uL Baso # (Auto) (0.00-0.20) K/uL Immature Gran # (Auto) (0.01-0.20) K/uL Absolute Nucleated RBC (0.00-0.12) K/uL Nucleated RBC % (auto) % Polychromasia Tear Drop Cells Sodium 142 (136-145) mmol/L Potassium 4.1 (3.5-5.1) mmol/L Chloride 113 H (98-107) mmol/L Carbon Dioxide 22 (21-32) mmol/L Anion Gap 7 (3-11) BUN 56 H (6-23) mg/dl Creatinine 3.63 H (0.6-1.4) mg/dl Est Cr Clr Drug Dosing 23.6 ml/min eGFR 17.78 BUN/Creatinine Ratio 15.4 (10-20) Glucose 171 H (70-99(Fasting)) mg/dl POC Glucose 140 H (70-99) mg/dl POC Glucose (other) (70-99) mg/dl Calcium 6.8 L (8.6-10.3) mg/dl Phosphorus (2.5-4.9) mg/dl Magnesium PTH Related Protein 23 H (11-20) pg/mL Medications Administered Current Inpatient Medications Aspirin (Aspirin 81 Mg Chew) 81 mg NG DAILY [facility] Stop: 09/18/24 08:59 Last Admin: 08/26/24 10:20 Dose: 81 mg Atenolol (Atenolol 50 Mg Tablet) 100 mg NG DAILY ANDREI Stop: 09/14/24 08:59 Last Admin: 08/22/24 07:47 Dose: Not Given Atorvastatin Calcium (Atorvastatin 20 Mg Tab) 20 mg PO DAILY [facility] Stop: 09/14/24 08:59 Bisacodyl (Bisacodyl 10 Mg Supp) 10 mg LA DAILY PRN PRN Reason: Constipation Stop: 09/13/24 23:09 Calamine/Phenol (Menthol-Zinc Oxide 360 Appln/120 Gm Tube) 1 appln EXT DAILY [facility] Stop: 09/17/24 15:14 Last Admin: 08/26/24 00:19 Dose: 1 appln Calcium Carbonate (Calcium Carbonate 1,250 Mg/5 Ml Udc) 1,250 mg NG TID [facility] Stop: 09/22/24 08:59 Last Admin: 08/26/24 10:17 Dose: 1,250 mg Cyanocobalamin (Cyanocobalamin (B-12) 500 Mcg Tablet) 500 mcg NG DAILY [facility] Stop: 09/14/24 08:59 Last Admin: 08/26/24 10:17 Dose: 500 mcg Dextrose (Dextrose 50% 50 Ml Syringe) 25 - 50 ml IV UD PRN; Protocol PRN Reason: Hypoglycemia Protocol Stop: 09/13/24 23:09 Last Admin: 08/21/24 21:58 Dose: 50 ml Enteral Nutritional Formula (Peptamen 1.5 Yovani 1,000 Ml Bag) 1,000 ml NG .See Protocol ANDREI; Protocol Stop: 09/23/24 09:59 Fentanyl Citrate (Fentanyl Bolus From Bag) 50 mcg IV Q60M PRN PRN Reason: Pain or Agitation Stop: 09/04/24 19:34 Last Admin: 08/26/24 06:09 Dose: 50 mcg Ferrous Sulfate (Ferrous Sulfate 325 Mg/7.4 Ml Udp) 325 mg NG DAILY [facility] Stop: 09/18/24 08:59 Last Admin: 08/26/24 10:17 Dose: 325 mg Glucagon (Glucagon For Inj 1 Mg Vial) 1 mg SQ UD PRN; Protocol PRN Reason: Hypoglycemia Protocol Stop: 09/13/24 23:09 Glucose (Glucose 40% Gel 15 Gm Tube) 15 - 30 gm PO UD PRN; Protocol PRN Reason: Hypoglycemia Protocol Stop: 09/13/24 23:09 Glucose (Glucose 10 Tab/Tube) 4 - 8 tab PO UD PRN; Protocol PRN Reason: Hypoglycemia Protocol Stop: 09/13/24 23:09 Heparin Sodium (Beef Lung) (Heparin 10 Unit/Ml 5 Ml Flush) 5 ml FLUSH PRN PRN PRN Reason: Flush Stop: 09/14/24 03:11 Last Admin: 08/18/24 10:08 Dose: 5 ml Heparin Sodium (Porcine) (Heparin Sod 5,000 Unit/0.5 Ml Vial) 5,000 units SQ Q8H ANDREI Stop: 09/14/24 00:00 Last Admin: 08/26/24 07:51 Dose: 5,000 units Thiamine HCl 100 mg/ Syringe 10 mls @ 2 mls/min IV QAM ANDREI Stop: 09/17/24 15:44 Last Admin: 08/26/24 10:16 Dose: 2 mls/min Meropenem 1,000 mg/ Syringe 20 mls @ 4 mls/min IV Q12H ANDREI; Protocol Stop: 08/28/24 02:04 Last Admin: 08/26/24 01:52 Dose: 4 mls/min Vasopressin 20 units/ Sodium (Chloride) 101 mls @ 0 mls/hr IV .Q0M ANDREI Stop: 09/20/24 18:59 Last Infusion: 08/25/24 18:59 Dose: 0 unit/min, 0 mls/hr Fentanyl Citrate (Fentanyl Citrate) 2,500 mcg in 250 mls @ 15 mls/hr IV .[id number] ANDREI; Protocol Stop: 09/04/24 19:44 Last Titration: 08/26/24 07:05 Dose: 150 mcg/hr, 15 mls/hr Norepinephrine Bitartrate (Levophed/D5w) 4 mg in 250 mls @ 0 mls/hr IV .Q0M ANDREI; Protocol Stop: 09/20/24 19:59 Last Titration: 08/25/24 18:59 Dose: 0 mcg/kg/min, 0 mls/hr Pantoprazole Sodium (Protonix) 40 mg in 10 mls @ 5 mls/min IV DAILY ANDREI Stop: 09/21/24 08:59 Last Admin: 08/26/24 10:16 Dose: 5 mls/min Hydrocortisone Sodium (Succinate 50 mg/ Syringe) 1 mls @ 4 mls/min IV Q24H ANDREI Stop: 08/27/24 18:01 Insulin Human Regular 250 (units/ Sodium Chloride) 250 mls @ 3.6 mls/hr IV .Q24H ANDREI; Protocol Stop: 09/21/24 13:44 Last Titration: 08/26/24 11:47 Dose: 3.6 units/hr, 3.6 mls/hr Propofol (Diprivan) 1,000 mg in 100 mls @ 17.064 mls/hr IV .Q5H52M ANDREI; Protocol Stop: 08/27/24 10:29 Last Admin: 08/26/24 08:53 Dose: 30 mcg/kg/min, 17.1 mls/hr Daptomycin 700 mg/ Syringe 14 mls @ 7 mls/min IV Q48H ANDREI; Protocol Stop: 09/17/24 14:01 Insulin Aspart (Insulin Aspart Per Unit Charge) 0 units SC Q4 ANDREI Stop: 09/21/24 16:59 Last Admin: 08/26/24 11:46 Dose: 6 units Ipratropium [place] (Ipratropium [place] Neb Soln 0.02% 0.5mg/2.5ml Vial) 0.5 mg INH QIDR PRN PRN Reason: Shortness Of Breath Or Wheezing Stop: 09/21/24 10:08 Lactobacillus Acidophilus (Advanced Probiotic 625 Mg Capsule) 1,250 mg PO DAILY [facility] Stop: 09/14/24 08:59 Last Admin: 08/22/24 09:26 Dose: 1,250 mg Lamotrigine (Lamotrigine 100 Mg Tab) 100 mg PO BID [facility]; Protocol Stop: 09/14/24 08:59 Last Admin: 08/26/24 10:18 Dose: 100 mg Levalbuterol HCl (Levalbuterol 1.25 Mg/3 Ml Neb) 1.25 mg NEB QIDR PRN PRN Reason: Shortness Of Breath Or Wheezing Stop: 09/20/24 14:59 Miscellaneous (Carbohydrates For Hypoglycemia ) 15 - 30 gm PO UD PRN PRN Reason: Hypoglycemia Protocol Stop: 09/13/24 23:09 Multivitamins/Minerals (Multi Vit W/Minerals Liquid 15 Ml Udc) 15 ml NG QAM ANDREI Stop: 09/18/24 08:59 Last Admin: 08/20/24 08:12 Dose: 15 ml Nitroglycerin (Nitroglycerin Sl 0.4 Mg/Tab Tab) 0.4 mg SL Q5M PRN PRN Reason: Chest Pain Stop: 09/13/24 23:09 Propofol (Propofol Bolus From Bag) 20 mg IV Q5M PRN PRN Reason: Sedation Stop: 08/27/24 10:20 Last Admin: 08/26/24 06:10 Dose: 20 mg Sterile Water (Tube Feeding Water Flush) 150 ml NG Q6H ANDREI Stop: 09/23/24 11:59 Last Admin: 08/26/24 11:47 Dose: 150 ml
--- NOTE | 2024-08-26 16:46 | Nephrology Progress Note ---
Date of Service August 26, 2024 Assessment & Plan (1) Hypocalcemia: Plan: improving and no longer critical hypocalcemia which started 72 hrs after bisphosphonate for severe hypercalcemia, cause for original ca elevation unclear, and lasted until 08/25 corrected Ca 13.8, Ca 12.8 on 08/20; Ca 12.4 on 08/21; Ca 9.4 on 08/22, 4.9 on 08/23 25 OH D 26; phos 2.7 PTH 7 on 08/19 hypercalcemia RESOLVED after low dose bisphosphonate; hopefully his MS will improve with lower calcium; notably at [facility] admission 08/02-08/11 he was consistently hypophosphatemic and hypocalcemic hypocalcemic (but not critically so) in [facility] on 08/23 he had critical hypocalcemia Ca 4.9 >> had 11 gm IV Ca on 08/23 plus NG Ca as well; PTH 195 >>>>>> Last Ca this AM 7.3 >> corrects to Ca 9.1 ->>>cont ca carbonate suspension 1.3 gm tid NG >>>>no need for potassium repletion ->>>>ordered repeat bmp urgent to reeval >> would replete IV to keep Ca corrected 8.5-10 -no further mag/K repletion required -PTH appropriately elevated now -await PTHrp <<not likely to be helpful; done for completeness Care coordinated w/ Dr Camacho via TText for goals of care, mri, calcium plan, frequency of BMP checks; we are in agreement. (2) JUANA (acute kidney injury): Plan: further improving stage 3 oliguric JUANA w/ multiple phases/hits >> admitted from [facility] w/ sepsis versus AIN also on ddx. Admitting creatinine on 08/13 4.5, which was peak value. was slowly improving creatinine and > 2L UOP daily (in setting of elevated Ca) then 08/21 cardiac arrest and in wake of this (and normal/low Ca) oliguria and worsening JUANA but this has stabilized, oliguria resolved on 08/24 and starting to improve Admitted [facility] 08/02-08/11 >> see notes up to 08/25 for data on Creat, Ca, C02 while there Also during [facility] admission had 08/07 drug reaction to ANCEF w/ rash and F > rounding team thought this might be drug fever. d/c to [facility] 08/11 where he continued to have F, dyspnea, ongoing redness/wound concerns and had at least one dose of rocephin [facility] could be Ischemic or toxic in the setting of Sepsis/vanco. acute interstitial nephritis is also on differential; reluctant to give steroids in setting of therapy for OM and concerns for aspiration PNA; marked eosinophilia (total eos 3X ULN) however urine eos negative x 3 08/23 (some delay/challenges getting test done so in theory could have resolved as well; appreciate nursing/lab teams help w/ urine eos) doubt an abrupt MGUS; could consider GN but he'd need biopsy to diagnose; not obstructed On 08/21 he had a cardiac arrest > became oliguric w/ 125 mL UOP for 12 h ON and 310 total for 08/22 and again 125 mL UOP ON into 08/23; oliguria x 48 hrs resolved now 1.8 gm proteinuria >last F 08/23 1230 > 38.2; did have temp 38.0 on 08/25 >>>mild volume overload but autodiuresing >>given edema may need to use diuretics but defer for now >>>slightly worse JUANA after cardiac arrest slowly improving now > today creatinine 3.3 from 3.6 yesterday and 1.5LUOP >>critical hypocalcemia; for now hypokalemia, hypomagnesemia controlled/resolved >pressors as needed to keep MAP > 65 >agree with [facility] 150 mL q6h no major issues with fluid overload and/or lytes except Ca I and O charting. Daily renal panel and CBC. maintain good hemodynamics. Hold metformin, Jardiance, Lisinopril. No NSAIDS, no contrast agents (3) Encephalopathy: Plan: no purposeful mvts; for repeat MRI today and ICU team to reeval goals of care (4) Hypercalcemia: Plan: RESOLVED w/ bisphosphonate; peak value 13.8 cCa (5) Aspiration pneumonia: Plan: finishing meropenem course Admission and Anticipated Discharge Date Admission Date: August 14, 2024 Subjective 1.2L UOP yesterday ; has not needed IV calcium now since 1999 on 08/25; remains on high dose NG Ca; s/p MRI brain today waiting on report and then d/w family goals of care; 2 granddaughters at bedside Review of Systems 2 Review of Systems: Unobtainable due to endotracheal tube and Unobtainable due to reduced consciousness Physical Exam 2 Constitutional: well developed, well nourished and + mechanically ventilated; no acute distress ENMT: Mouth: + dry oral mucous membranes Respiratory: normal respiratory effort Auscultation: + diminished lung sounds Cardiovascular: Rate/Rhythm: regular rate and regular rhythm Extremities: + edema (2-3+) Gastrointestinal (Abdomen): Inspection/Auscultation: + abdomen distended and normal bowel sounds Percussion/Palpation: abdomen soft; abdomen nontender Skin: no rashes, warm and dry Results & Data Vital Signs (Past 12 Hours) Vital Signs Temp Pulse Resp BP Pulse Ox O2 Del Method FiO2 08/26/24 16:03 96 H 20 93 08/26/24 16:00 117/61 08/26/24 16:00 30 08/26/24 16:00 99 H 08/26/24 15:03 99 H 18 92 08/26/24 15:00 117/61 08/26/24 14:23 99 H 19 95 30 08/26/24 13:00 118/68 08/26/24 12:54 104 H 25 H 93 08/26/24 12:00 105 H 25 H 92 08/26/24 12:00 30 08/26/24 12:00 102 H 08/26/24 11:09 102 H 25 H 95 08/26/24 11:00 148/85 H 08/26/24 10:43 102 H 25 H 979 H 30 08/26/24 10:12 99 H 24 96 08/26/24 10:00 136/76 08/26/24 09:03 101 H 24 100 08/26/24 09:01 141/81 H 08/26/24 09:00 100 H 24 100 08/26/24 08:02 98 H 18 98 08/26/24 08:00 132/75 08/26/24 08:00 Mechanical Vent 30 08/26/24 08:00 30 08/26/24 08:00 100 H 08/26/24 08:00 36.5 C 08/26/24 07:30 100 H 23 98 30 08/26/24 07:01 106/82 08/26/24 06:59 100 H 23 99 Mechanical Vent 30 08/26/24 06:00 140/80 08/26/24 06:00 140/80 08/26/24 05:54 97 H 21 96 30 08/26/24 05:51 99 H 17 98 08/26/24 05:45 99 H 16 98 08/26/24 05:36 96 H 18 97 08/26/24 05:15 98 H 20 96 08/26/24 05:00 122/79 08/26/24 05:00 100 H 24 94 08/26/24 04:42 96 H 20 95 Laboratory Results 08/26/24 04:24 08/26/24 04:24
[2024-08-26 17:40] LABS: BUN Creatinine Ratio 17.1 (10-20); Calcium 5.9 mg/dl (8.6-10.3); Creatinine Clr Calc Pharmacy 28.2 ml/min
--- NOTE | 2024-08-26 17:51 | Communication Note ---
Date of Service: August 26, 2024 1700 BMP notable for Ca 5.9 Gave 3 gm IV calcium ordered repeat bmp 2100 > will ask nocturnal cardiothoracic surgeon to follow up 2100 labs and replete >>lipemia compromised the magnesium study >> asked primary service to check lipids (would need fasting level presumably so would have to stop TF) update sent to RN, cardiothoracic surgeon via TText; also did discuss w/ hospitalist by phone
[2024-08-26] MEDS: PEPTAMEN 1.5 CAL 1,000 ML BAG NG SCH (18:32)
[2024-08-26] MEDS: CALCIUM GLUCONATE 1,000 MG/60 ML BAG IV SCH (18:49)
[2024-08-26 21:18] LABS: BUN Creatinine Ratio 16.9 (10-20); Calcium 6.9 mg/dl (8.6-10.3); Creatinine Clr Calc Pharmacy 28.4 ml/min; Potassium 3.8 mmol/L (3.5-5.1)
[2024-08-27 02:38] LABS: BUN Creatinine Ratio 17.4 (10-20); Calcium 6.4 mg/dl (8.6-10.3); Creatinine Clr Calc Pharmacy 29.2 ml/min; Potassium 3.7 mmol/L (3.5-5.1)
[2024-08-27] MEDS: CALCIUM CHLORIDE 10% 1,000 MG in DEXTROSE 5% 50 ML IV ONE (02:53)
[2024-08-27] MEDS: POTASSIUM CHLORIDE / WTR 20 MEQ/100 ML PLCT IV SCH (02:54)
[2024-08-27] MEDS: CALCIUM CHLORIDE 10% 1,000 MG in DEXTROSE 5% 50 ML IV STA (03:17)
[2024-08-27 06:08] LABS: Hemoglobin 8.7 g/dl (14.0-18.0); Mean Corpuscular Hemoglobin 30.4 pg (25.0-34.0); Mean Corpuscular Hgb Conc 31.1 g/dL (32.0-36.0); Mean Corpuscular Volume 97.9 fL (80.0-100.0); Mean Platelet Volume 9.8 fL (9.4-12.4); Nucleated RBC # (auto) 0.28 K/uL (0.00-0.12); Nucleated RBC % (auto) 2.3 %; Platelet Count 326 K/uL (130-400); RDW Coefficient of Variation 20.3 % (11.5-14.5); RDW Standard Deviation 69.3 fL (36.4-46.3); Red Blood Count 2.86 M/uL (4.70-6.10); White Blood Count 11.96 K/ul (4.8-10.8)
[2024-08-27 07:38] LABS: Anisocytosis Present; Basophils # (auto) 0.04 K/uL (0.00-0.20); Basophils % (auto) 0.3 %; Eosinophils # (auto) 0.04 K/uL (0.00-0.50); Eosinophils % (auto) 0.3 %; Immature Granulocytes % (auto) 9.2 %; Lymphocytes # (auto) 1.98 K/uL (1.20-3.40); Lymphocytes % (auto) 16.6 %; Monocytes # (auto) 0.75 K/uL (0.11-0.59); Monocytes % (auto) 6.3 %; Neutrophils # (auto) 8.05 K/uL (1.40-6.50); Neutrophils % (auto) 67.3 %; Polychromasia 1+; Target Cells 1+; Tear Drop Cells 1+
--- NOTE | 2024-08-27 07:43 | XRay Report ---
EXAM: XR chest 1V portable CLINICAL HISTORY: eval tubes/lines/lung [place] while intubated TECHNIQUE: An X-ray image of the chest is obtained in 1 AP projection. COMPARISON: 08/26/2024 CR FINDINGS: ETT with its tip 3.4 cm above the mauricio. NG tube noted in situ. The tip is seen below the hemidiaphragm. Right CVL is noted. The tip is seen in the cavoatrial junction. Pulmonary Parenchyma: Right hemidiaphragm is raised with Right costophrenic angle is obliterated, may favor pleural effusion with underlying collapse. Numerous chest tubes are appreciated. Increased vascular markings are noted in bilateral perihilar regions, which may favor vascular congestion. Heart and Mediastinum: Cardiac size is enlarged. No mediastinal widening or masses. No hilar or mediastinal lymphadenopathy. Bony Thorax: Bony thorax appears intact without fractures or deformities. Soft Tissues: Soft tissues overlying the chest wall are unremarkable. IMPRESSION: 1. ETT with its tip 3.4 cm above the mauricio. 2. NG tube noted in situ. The tip is seen below the hemidiaphragm. 3. Right CVL is noted. The tip is seen in the cavoatrial junction. 4. Findings suggesting pleural effusion with underlying collapse. 5. No significant interval change. Electronically signed by Rajani Jenkins 08-27-2024 07:43 AM
[2024-08-27 07:51] LABS: BUN Creatinine Ratio 16.9 (10-20); Calcium 7.1 mg/dl (8.6-10.3); Creatinine Clr Calc Pharmacy 30.3 ml/min; Magnesium 1.8 mg/dl (1.7-2.4); Phosphorus 2.1 mg/dl (2.5-4.9); Potassium 3.9 mmol/L (3.5-5.1)
--- NOTE | 2024-08-27 08:55 | Critical Care Progress Note ---
Date of Service August 27, 2024 Assessment & Plan (1) Hypercalcemia: (2) Transaminitis: (3) Encephalopathy: (4) Cellulitis of left lower extremity: (5) Diabetic foot ulcer: (6) JUANA (acute kidney injury): (7) Cardiac arrest: (8) Shock circulatory: Plan Reason Critically Ill: 63-year-old male admitted to the hospital for lower extremity cellulitis as well as osteomyelitis for right foot ulcer. Transferred to the ICU after cardiac arrest on the floor 24-hour events: Patient remains sedated on fentanyl and propofol. Minimal vent settings. Hemodynamically stable. Tube feedings being tolerated. Recommendations Neuro -patient remains significantly encephalopathic. At this point time we will stop sedation with propofol and fentanyl to reassess. Ammonia had been normal previously. Patient certainly at risk for anoxic encephalopathy. Prior seizure history, EEG performed 08/18 showed triphasic waves consistent with metabolic encephalopathy superimposed on a general background slowing which was nonspecific. No seizure activity identified. MRI completed last night remain pending Cardiac -status postcardiac arrest. 2D echo 08/21/2024: EF greater than 70%, mild concentric LVH, borderline RV enlargement, no significant valvular disease, no pericardial effusion. Hemodynamically stable off pressors. Diuresis as tolerated by nephrology. Respiratory -respiratory failure. Minimal vent settings currently. Patient remains intubated due to mental status. Discussed with son at bedside. Would favor discontinuation of sedation and assessment for vent liberation. Family has stated the patient would not want to pursue tracheostomy or other aggressive life-sustaining interventions which would alter his quality of life. Would favor a trial of extubation and if the patient fails, transition to comfort care would be appropriate. Patient has chronic elevation of the diaphragm which may impair his ability to breathe appropriately. GI -transaminitis. Recheck today. Recheck ammonia level RENAL/LYTES -acute renal failure with multiple electrolyte abnormalities. Serum creatinine slightly better today but remains hypocalcemic hypophosphatemic. ENDO - glycemic control per protocol HEME -mild anemia. No evidence of acute blood loss currently. No indication for transfusion. ID -osteomyelitis, antibiotics per infectious disease. Currently day #7 merope nem after 3 days of Zosyn. He is on daptomycin in the outpatient setting --Prophylaxis VTE: Heparin GI: Pantoprazole Lines: Right radial, right arm PICC Diet: Tube feeds Met with sons at bedside. Had extensive discussion. Patient appears to be clinically failing despite aggressive medical interventions and support. They are quite clear that he wants to maintain an appropriate quality of life. They are in agreement that he would not want tracheostomy or PEG tube placement. Will follow-up on MRI as well as lab studies however regardless of the results of the imaging studies, this does not change the clinical picture and unfortunately the patient appears to be clinically stagnant or declining despite aggressive medical care. Long-term management strategies would include potential tracheostomy or PEG tube which again the patient declines. At this point time I would favor discontinuation of sedation and liberation from mechanical ventilator. If the patient is unable to maintain respirations or protect airway, consideration for transition to comfort care measures might be appropriate. This will be discussed with the family in detail. Palliative care consultation may be appropriate as well. Patient is critically ill with multiple life-threatening illnesses. He is on life support currently. Significant possibility of clinical decline and/or . A total of 52 minutes in critical care time was spent in evaluation management and coordination of care for this patient Admission and Anticipated Discharge Date Admission Date: August 14, 2024 Subjective Patient seen and examined. EMR reviewed. Discussed with off going butcher fish as well as with overnight critical care PERRY and bedside critical care nurse as well as on multidisciplinary rounds. The patient remains somewhat encephalopathic but he is sedated currently. He is on minimal vent settings. He is hemodynamically stable. Review of Systems Review of Systems: Unobtainable due to reduced consciousness Physical Exam Constitutional: + ill appearing and + mechanically venti lated; no acute distress ENMT: Mouth: + dry oral mucous membranes Respiratory: normal respiratory effort Auscultation: + diminished lung sounds Cardiovascular: Rate/Rhythm: regular rate and regular rhythm Extremities: + edema (2-3+) Gastrointestinal (Abdomen): Inspection/Auscultation: + abdomen distended and normal bowel sounds Percussion/Palpation: abdomen soft; abdomen nontender Skin: no rashes, warm and dry Neurologic: Sedated. Does not follow commands Results & Data Results & Data Vital Signs (Past 12 Hours) Vital Signs Temp Pulse Resp BP Pulse Ox O2 Del Method FiO2 08/27/24 07:35 97 H 23 100 30 08/27/24 05:45 100 H 20 97 08/27/24 05:33 102 H 23 97 08/27/24 05:15 108 H 23 93 08/27/24 05:01 159/84 H 08/27/24 04:42 108 H 25 H 96 08/27/24 04:36 110 H 30 H 95 08/27/24 04:18 103 H 17 96 08/27/24 04:01 168/97 H 08/27/24 04:00 30 08/27/24 03:55 99 H 21 98 30 08/27/24 03:54 101 H 23 97 08/27/24 03:45 98 H 17 98 08/27/24 03:36 37.2 C 99 H 17 97 08/27/24 03:30 134/63 08/27/24 03:30 134/63 08/27/24 03:18 99 H 20 98 08/27/24 03:15 98 H 20 99 08/27/24 03:00 97 H 21 98 08/27/24 03:00 119/65 08/27/24 02:45 98 H 21 100 08/27/24 02:36 98 H 21 100 08/27/24 02:24 98 H 22 100 08/27/24 01:45 94 H 14 100 08/27/24 01:33 94 H 16 100 08/27/24 01:30 116/71 08/27/24 01:30 116/71 08/27/24 01:30 116/71 08/27/24 01:30 116/71 08/27/24 01:27 93 H 19 100 08/27/24 01:18 94 H 15 100 08/27/24 01:00 128/66 08/27/24 01:00 128/66 08/27/24 01:00 93 H 16 100 08/27/24 00:45 94 H 18 99 08/27/24 00:33 100 H 21 100 08/27/24 00:30 114/65 08/27/24 00:27 98 H 14 100 08/27/24 00:24 98 H 15 100 08/27/24 00:00 30 08/27/24 00:00 123/69 08/27/24 00:00 101 H 16 99 08/26/24 23:50 105 H 08/26/24 23:45 102 H 18 98 08/26/24 23:39 37.2 C 103 H 19 98 Mechanical Vent 30 08/26/24 23:31 111/70 08/26/24 23:30 105 H 20 98 08/26/24 23:21 104 H 23 97 08/26/24 23:18 Mechanical Vent 30 08/26/24 23:12 105 H 22 99 08/26/24 23:00 136/72 08/26/24 23:00 136/72 08/26/24 23:00 136/72 08/26/24 22:51 105 H 21 98 08/26/24 22:30 101 H 31 H 93 08/26/24 22:18 99 H 21 100 08/26/24 22:00 135/76 08/26/24 22:00 99 H 20 99 08/26/24 21:45 21 30 08/26/24 21:30 129/84 08/26/24 21:30 99 H 20 99 08/26/24 21:27 100 H 21 97 08/26/24 21:00 149/82 H 08/26/24 21:00 149/82 H Critical Care Results & Data Vital Signs (Past 12 Hours) Vital Signs Temp Pulse Resp BP Pulse Ox O2 Del Method FiO2 08/27/24 07:35 97 H 23 100 30 08/27/24 05:45 100 H 20 97 08/27/24 05:33 102 H 23 97 08/27/24 05:15 108 H 23 93 08/27/24 05:01 159/84 H 08/27/24 04:42 108 H 25 H 96 08/27/24 04:36 110 H 30 H 95 08/27/24 04:18 103 H 17 96 08/27/24 04:01 168/97 H 08/27/24 04:00 30 08/27/24 03:55 99 H 21 98 30 08/27/24 03:54 101 H 23 97 08/27/24 03:45 98 H 17 98 08/27/24 03:36 37.2 C 99 H 17 97 08/27/24 03:30 134/63 08/27/24 03:30 134/63 08/27/24 03:18 99 H 20 98 08/27/24 03:15 98 H 20 99 08/27/24 03:00 97 H 21 98 08/27/24 03:00 119/65 08/27/24 02:45 98 H 21 100 08/27/24 02:36 98 H 21 100 08/27/24 02:24 98 H 22 100 08/27/24 01:45 94 H 14 100 08/27/24 01:33 94 H 16 100 08/27/24 01:30 116/71 08/27/24 01:30 116/71 08/27/24 01:30 116/71 08/27/24 01:30 116/71 08/27/24 01:27 93 H 19 100 08/27/24 01:18 94 H 15 100 08/27/24 01:00 128/66 08/27/24 01:00 128/66 08/27/24 01:00 93 H 16 100 08/27/24 00:45 94 H 18 99 08/27/24 00:33 100 H 21 100 08/27/24 00:30 114/65 08/27/24 00:27 98 H 14 100 08/27/24 00:24 98 H 15 100 08/27/24 00:00 30 08/27/24 00:00 123/69 08/27/24 00:00 101 H 16 99 08/26/24 23:50 105 H 08/26/24 23:45 102 H 18 98 08/26/24 23:39 37.2 C 103 H 19 98 Mechanical Vent 08/26/24 23:31 111/70 08/26/24 23:30 105 H 20 98 08/26/24 23:21 104 H 23 97 08/26/24 23:18 Mechanical Vent 30 08/26/24 23:12 105 H 22 99 08/26/24 23:00 136/72 08/26/24 23:00 136/72 08/26/24 23:00 136/72 08/26/24 22:51 105 H 21 98 08/26/24 22:30 101 H 31 H 93 08/26/24 22:18 99 H 21 100 08/26/24 22:00 135/76 08/26/24 22:00 99 H 20 99 08/26/24 21:45 21 30 08/26/24 21:30 129/84 08/26/24 21:30 99 H 20 99 08/26/24 21:27 100 H 21 97 08/26/24 21:00 149/82 H 08/26/24 21:00 149/82 H Lab & Micro Results (Past 24 Hours) RBC 2.86 M/uL (4.70-6.10) L 08/27/24 WBC 11.96 K/ul (4.8-10.8) H 08/27/24 Hgb 8.7 g/dl (14.0-18.0) L 08/27/24 Hct 28.0 % (42.0-52.0) L 08/27/24 MCV 97.9 fL (80.0-100.0) 08/27/24 MCH 30.4 pg (25.0-34.0) 08/27/24 MCHC 31.1 g/dL (32.0-36.0) L 08/27/24 RDW Standard Deviation 69.3 fL (36.4-46.3) H 08/27/24 RDW Coefficient of Variation 20.3 % (11.5-14.5) H 08/27/24 Plt Count 326 K/uL (130-400) 08/27/24 MPV 9.8 fL (9.4-12.4) 08/27/24 Nucleated Red Blood Cells % (auto) 2.3 % 08/27 Nucleated RBC Absolute Count (auto) 0.28 K/uL (0.00-0.12) H 08/27/24 Neutrophils (%) (Auto) 67.3 % 08/27/24 Lymphocytes (%) (Auto) 16.6 % 08/27/24 Monocytes # (Auto) 0.75 K/uL (0.11-0.59) H 08/27/24 Eosinophils # (Auto) 0.04 K/uL (0.00-0.50) 08/27/24 Immature Granulocyte % (Auto) 9.2 % 08/27/24 Neutrophils # (Auto) 8.05 K/uL (1.40-6.50) H 08/27/24 Lymphocytes # (Auto) 1.98 K/uL (1.20-3.40) 08/27/24 Monocytes # (Auto) 0.75 K/uL (0.11-0.59) H 08/27/24 Eosinophils # (Auto) 0.04 K/uL (0.00-0.50) 08/27/24 Basophils # (Auto) 0.04 K/uL (0.00-0.20) 08/27/24 Immature Granulocyte # (Auto) 1.10 K/uL (0.01-0.20) H 08/27 Polychromasia 1+ 08/27/24 Anisocytosis Present 08/27/24 Target Cells 1+ 08/27/24 Tear Drop Cells 1+ 08/27/24 Na 144 mmol/L (136-145) 08/27/24 K 3.9 mmol/L (3.5-5.1) 08/27/24 Cl 119 mmol/L (98-107) H 08/27/24 CO2 22 mmol/L (21-32) 08/27/24 Anion Gap 3 (3-11) 08/27/24 BUN 48 mg/dl (6-23) H 08/27/24 Creatinine 2.84 mg/dl (0.6-1.4) H 08/27/24 BUN/Creatinine Ratio 16.9 (10-20) 08/27/24 Glu 110 mg/dl (70-99(Fasting)) H 08/27/24 Ca 7.1 mg/dl (8.6-10.3) L 08/27/24 Phosphorus Level 2.1 mg/dl (2.5-4.9) L 08/27/24 Mg 1.8 mg/dl (1.7-2.4) 08/27/24 05:51 Calcium Level 7.1 mg/dl (8.6-10.3) L 08/27/24 05:51 Microbiology 08/21/24 22:57 Aerobic Blood Culture - Final Blood No growth in Aerobic bottle after 5 days. Anaerobic Blood Culture - Final No growth in Anaerobic bottle after 5 days. 08/21/24 22:45 Aerobic Blood Culture - Final Blood No growth in Aerobic bottle after 5 days. Anaerobic Blood Culture - Final No growth in Anaerobic bottle after 5 days. Diagnostic Findings (Past 24 Hours) Brain MRI 08/16/24 10:21 Exam(s): MRI HEAD Without Contrast EXAM: MR Head Without Intravenous Contrast CLINICAL HISTORY: Altered mental status. TECHNIQUE: Magnetic resonance images of the head/brain without intravenous contrast in multiple planes. COMPARISON: CT head without contrast performed 08/14/2024 FINDINGS: Limitations: There is motion artifact, which degrades image quality on multiple sequences. Brain: Diffusion-weighted imaging is negative for acute or subacute infarct. No definite intracranial hemorrhage. No significant mass- effect. No cortical infarct. Ventricles: Unremarkable. No ventriculomegaly. Bones/joints: Unremarkable. No acute fracture. Sinuses: Unremarkable as visualized. No acute sinusitis. Mastoid air cells: Unremarkable as visualized. No mastoid effusion. Orbits: Unremarkable as visualized. IMPRESSION: No evidence of acute or subacute infarct. Electronically signed by: Donald Head MD 08/16/24 23:11 PM Chest X-Ray 08/27/24 06:00 EXAM: XR chest 1V portable CLINICAL HISTORY: eval tubes/lines/lung [place] while intubated TECHNIQUE: An X-ray image of the chest is obtained in 1 AP projection. COMPARISON: 08/26/2024 CR FINDINGS: ETT with its tip 3.4 cm above the mauricio. NG tube noted in situ. The tip is seen below the hemidiaphragm. Right CVL is noted. The tip is seen in the cavoatrial junction. Pulmonary Parenchyma: Right hemidiaphragm is raised with Right costophrenic angle is obliterated, may favor pleural effusion with underlying collapse. Numerous chest tubes are appreciated. Increased vascular markings are noted in bilateral perihilar regions, which may favor vascular congestion. Heart and Mediastinum: Cardiac size is enlarged. No mediastinal widening or masses. No hilar or mediastinal lymphadenopathy. Bony Thorax: Bony thorax appears intact without fractures or deformities. Soft Tissues: Soft tissues overlying the chest wall are unremarkable. IMPRESSION: 1. ETT with its tip 3.4 cm above the mauricio. 2. NG tube noted in situ. The tip is seen below the hemidiaphragm. 3. Right CVL is noted. The tip is seen in the cavoatrial junction. 4. Findings suggesting pleural effusion with underlying collapse. 5. No significant interval change. Electronically signed by Rajani Jenkins 08-27-2024 07:43 AM I & O Totals 24 Hours 08/26/24 08/27/24 08/28/24 06:59 06:59 06:59 Intake Total 2425.944 / 2425.944 3475.2127 / 3475.2127 284.415 / 284.415 Output Total 1242 / 1242 1351 / 1351 Balance 1183.944 / 7229.782 8475.2127 / 2124.2127 284.415 / 284.415 Cumulative 08/14/24 17:45 thru 03/03/25 08:44 Intake Total 08686.2023 Output Total 98411 Balance 23215.2023 RT Ventilator Mngmt (Last Documented) Ventilator Ordered Settings Ventilator Support Mode CPAP 08/27/24 07:35 Respiratory Rate 23 08/27/24 07:35 Ventilator Tidal Volume 470 08/26/24 20:35 Setting Minute Ventilation 12.7 08/27/24 07:35 Ventilator Positive Pressure 5 08/27/24 07:35 Support Setting Positive End Expiratory 5 08/27/24 07:35 Pressure Fraction of Inspired Oxygen 30 08/27/24 07:35 Peak Inspiratory Flow 47 08/26/24 14:23 Machine Comment pt still paralyzed from MRI 08/26/24 14:23 Ventilator - PT Measurements Respiratory Rate 23 Exhaled Tidal Volume 639 Minute Ventilation 12.7 Peak Inspiratory Airway 11 Pressure Plateau Pressure 12.9 Respiratory Cycle Inspiratory: 1:2.7 Expiratory Ratio Inspiratory Phase Time 0.62 End-Tidal CO2 26 Static Lung Compliance 75.44 Dynamic Lung Compliance 106.50 Normal Static Lung Compliance 50.00 Patient Measurements Comment changed patient over to PS per [employer] DIRECTOR Coding Level of Care Code 25189 CRITICAL CARE 1ST 30-74M Diagnoses Hypercalcemia E83.52 Transaminitis R74.01 Encephalopathy G93.40 Cellulitis of left lower extremity L03.116 Diabetic foot ulcer E11.621; L97.412 Diabetes mellitus type: type 2 Diabetic foot ulcer location: midfoot Laterality: right Non-pressure ulcer stage: with fat layer exposed JUANA (acute kidney injury) N17.9 Cardiac arrest I46.9 Shock circulatory R57.9 (5) Diabetic foot ulcer Diabetes mellitus type: type 2 Diabetic foot ulcer location: midfoot Laterality: right Non-pressure ulcer stage: with fat layer exposed Qualified Code(s): E11.621 - Type 2 diabetes mellitus with foot ulcer; L97.412 - Non- pressure chronic ulcer of right heel and midfoot with fat layer exposed
--- NOTE | 2024-08-27 09:00 | Magnetic Resonance Report ---
Technique: Multiple T1 and T2-weighted magnetic resonance images were obtained of the brain without gadolinium contrast Comparison is made with a head CT dated 08/21/2024 Findings: There is no sign of acute or old infarction with normal-appearing diffusion weighted images. No definite focus of demyelination is seen. There is mild diffuse cerebral atrophy No definite mass lesion is seen on this noncontrast study. There is no intracranial hemorrhage or other fluid collection. No midline shift or other form of herniation is seen. There is no hydrocephalus. Normal flow-voids are seen within the arteries of the [id number]. The orbits and paranasal sinuses appear normal. There is opacification of the mastoid air cells bilaterally Impression: 1. No sign of infarction or mass lesion 2. Bilateral mastoid air cell opacification, concerning for inflammatory mastoiditis Electronically signed by Rajan Major 08-26-2024 2:14 PM
--- NOTE | 2024-08-27 09:21 | Gastroenterology Progress Note ---
Date of Service August 27, 2024 Assessment & Plan (1) Transaminitis: Plan: 63 year old male admitted w/ lower extremity cellulitis. right foot ulcer and osteomyelitis w/ history of seizures, dyslipidemia, diabetes, hypertension, lung cancer, cardiac arrest on 08/21/24 admitted to the ICU. GI was asked to evaluate last week for elevated transaminases which have persisted through the course of this admission. These are likely multifactorial given his degree of fatty liver on imaging, sepsis, medication administration and recent cardiac arrest Trend LFTs If worsening, recommend repeat ABD US imaging Follow liver serology Acute hep panel negative Recall GI as needed. I spent a total of 40 minutes on the date of service in review of patient's record, and previously obtained information in person and appropriate medical visit, discussion and education of plan, with patient and/or caregiver, placing orders for tests/referral/procedures as medically necessary and documentation of pertinent clinical information in patient's medical records for their visit today. Admission and Anticipated Discharge Date Admission Date: August 14, 2024 Supervising Physician Co-Signing Physician Notes I saw and examined this patient with our nurse practitioner and agree with her assessment and plan. Suspect abnormal LFTs are related to his underlying MAFLD possibly aggravated by his recent infection. Clinically no active GI symptoms at the present time. He should follow-up with us as an outpatient. Subjective Pt was seen and evaluated, chart reviewed. Remains sedated - minimal vent settings. Family at bedside. Previous LFTs trend reviewed. ABD US reviewed - hepatic steatosis w mild ascites. TBili 2.0 --> 4.4 --> 4.0 AST 130 --> 380 --> 209 ALT 88 --> 104 --> 55 ALKP 166 --> 409 --> 378 ABD US 2024: Prominent pancreas with heterogeneous hyperechoic echotexture. This could be due to inflammatory process. Need clinical correlation. Mild pericholecystic edema. This could be due to reactionary due to ascites or adjacent inflammatory process. New finding. Hepatic steatosis. Unchange. Mild perihepatic ascites. Unchanged. Otherwise, no significant interval changes. Review of Systems Review of Systems: Unobtainable due to endotracheal tube Physical Exam Constitutional: Critically ill male in no acute distress, sedated/intubated in ICU. Respiratory: + diminished Gastrointestinal (Abdomen): Inspection/Auscultation: normal bowel sounds Skin: no rashes, warm and dry Results & Data Results & Data Vital Signs (Past 12 Hours) Vital Signs Temp Pulse Resp BP Pulse Ox O2 Del Method FiO2 08/27/24 07:35 97 H 23 100 30 08/27/24 05:45 100 H 20 97 08/27/24 05:33 102 H 23 97 08/27/24 05:15 108 H 23 93 08/27/24 05:01 159/84 H 08/27/24 04:42 108 H 25 H 96 08/27/24 04:36 110 H 30 H 95 08/27/24 04:18 103 H 17 96 08/27/24 04:01 168/97 H 08/27/24 04:00 30 08/27/24 03:55 99 H 21 98 30 08/27/24 03:54 101 H 23 97 08/27/24 03:45 98 H 17 98 08/27/24 03:36 99.0 F 99 H 17 97 08/27/24 03:30 134/63 08/27/24 03:30 134/63 08/27/24 03:18 99 H 20 98 08/27/24 03:15 98 H 20 99 08/27/24 03:00 97 H 21 98 08/27/24 03:00 119/65 08/27/24 02:45 98 H 21 100 08/27/24 02:36 98 H 21 100 08/27/24 02:24 98 H 22 100 08/27/24 01:45 94 H 14 100 08/27/24 01:33 94 H 16 100 08/27/24 01:30 116/71 08/27/24 01:30 116/71 08/27/24 01:30 116/71 08/27/24 01:30 116/71 08/27/24 01:27 93 H 19 100 08/27/24 01:18 94 H 15 100 08/27/24 01:00 128/66 08/27/24 01:00 128/66 08/27/24 01:00 93 H 16 100 08/27/24 00:45 94 H 18 99 08/27/24 00:33 100 H 21 100 08/27/24 00:30 114/65 08/27/24 00:27 98 H 14 100 08/27/24 00:24 98 H 15 100 08/27/24 00:00 30 08/27/24 00:00 123/69 08/27/24 00:00 101 H 16 99 08/26/24 23:50 105 H 08/26/24 23:45 102 H 18 98 08/26/24 23:39 99.0 F 103 H 19 98 Mechanical Vent 08/26/24 23:31 111/70 08/26/24 23:30 105 H 20 98 08/26/24 23:21 104 H 23 97 08/26/24 23:18 Mechanical Vent 08/26/24 23:12 105 H 22 99 08/26/24 23:00 136/72 08/26/24 23:00 136/72 08/26/24 23:00 136/72 08/26/24 22:51 105 H 21 98 08/26/24 22:30 101 H 31 H 93 08/26/24 22:18 99 H 21 100 08/26/24 22:00 135/76 08/26/24 22:00 99 H 20 99 08/26/24 21:45 21 30 08/26/24 21:30 129/84 08/26/24 21:30 99 H 20 99 08/26/24 21:27 100 H 21 97 Laboratory Results 08/27/24 08/27/24 08/27/24 Range/Units 07:27 05:51 05:06 WBC 11.96 H (4.8-10.8) K/ul RBC 2.86 L (4.70-6.10) M/uL Hgb 8.7 L (14.0-18.0) g/dl Hct 28.0 L (42.0-52.0) % MCV 97.9 (80.0-100.0) fL MCH 30.4 (25.0-34.0) pg MCHC 31.1 L (32.0-36.0) g/dL RDW Std Deviation 69.3 H (36.4-46.3) fL RDW Coeff of Eladio 20.3 H (11.5-14.5) % Plt Count 326 (130-400) K/uL MPV 9.8 (9.4-12.4) fL Immature Gran % (Auto) 9.2 % Neut % (Auto) 67.3 % Lymph % (Auto) 16.6 % [place] % (Auto) 6.3 % Eos % (Auto) 0.3 % Baso % (Auto) 0.3 % Neut # (Auto) 8.05 H (1.40-6.50) K/uL Lymph # (Auto) 1.98 (1.20-3.40) K/uL [place] # (Auto) 0.75 H (0.11-0.59) K/uL Eos # (Auto) 0.04 (0.00-0.50) K/uL Baso # (Auto) 0.04 (0.00-0.20) K/uL Immature Gran # (Auto) 1.10 H (0.01-0.20) K/uL Absolute Nucleated RBC 0.28 H (0.00-0.12) K/uL Nucleated RBC % (auto) 2.3 % Polychromasia 1+ Anisocytosis Present Target Cells 1+ Tear Drop Cells 1+ Sodium 144 (136-145) mmol/L Potassium 3.9 (3.5-5.1) mmol/L Chloride 119 H (98-107) mmol/L Carbon Dioxide 22 (21-32) mmol/L Anion Gap 3 (3-11) BUN 48 H (6-23) mg/dl Creatinine 2.84 H (0.6-1.4) mg/dl Est Cr Clr Drug Dosing 30.3 ml/min eGFR 23.87 BUN/Creatinine Ratio 16.9 (10-20) Glucose 110 H (70-99(Fasting)) mg/dl POC Glucose 110 H 111 H (70-99) mg/dl Calcium 7.1 L (8.6-10.3) mg/dl Phosphorus 2.1 L (2.5-4.9) mg/dl Magnesium 1.8 (1.7-2.4) mg/dl 08/27/24 08/27/24 08/27/24 Range/Units 04:07 03:07 02:09 WBC (4.8-10.8) K/ul RBC (4.70-6.10) M/uL Hgb (14.0-18.0) g/dl Hct (42.0-52.0) % MCV (80.0-100.0) fL MCH (25.0-34.0) pg MCHC (32.0-36.0) g/dL RDW Std Deviation (36.4-46.3) fL RDW Coeff of Eladio (11.5-14.5) % Plt Count (130-400) K/uL MPV (9.4-12.4) fL Immature Gran % (Auto) % Neut % (Auto) % Lymph % (Auto) % [place] % (Auto) % Eos % (Auto) % Baso % (Auto) % Neut # (Auto) (1.40-6.50) K/uL Lymph # (Auto) (1.20-3.40) K/uL [place] # (Auto) (0.11-0.59) K/uL Eos # (Auto) (0.00-0.50) K/uL Baso # (Auto) (0.00-0.20) K/uL Immature Gran # (Auto) (0.01-0.20) K/uL Absolute Nucleated RBC (0.00-0.12) K/uL Nucleated RBC % (auto) % Polychromasia Anisocytosis Target Cells Tear Drop Cells Sodium (136-145) mmol/L Potassium (3.5-5.1) mmol/L Chloride (98-107) mmol/L Carbon Dioxide (21-32) mmol/L Anion Gap (3-11) BUN (6-23) mg/dl Creatinine (0.6-1.4) mg/dl Est Cr Clr Drug Dosing ml/min eGFR BUN/Creatinine Ratio (10-20) Glucose (70-99(Fasting)) mg/dl POC Glucose 110 H 127 H 101 H (70-99) mg/dl Calcium (8.6-10.3) mg/dl Phosphorus (2.5-4.9) mg/dl Magnesium (1.7-2.4) mg/dl 08/27/24 08/27/24 08/26/24 Range/Units 02:07 00:17 23:07 WBC (4.8-10.8) K/ul RBC (4.70-6.10) M/uL Hgb (14.0-18.0) g/dl Hct (42.0-52.0) % MCV (80.0-100.0) fL MCH (25.0-34.0) pg MCHC (32.0-36.0) g/dL RDW Std Deviation (36.4-46.3) fL RDW Coeff of Eladio (11.5-14.5) % Plt Count (130-400) K/uL MPV (9.4-12.4) fL Immature Gran % (Auto) % Neut % (Auto) % Lymph % (Auto) % [place] % (Auto) % Eos % (Auto) % Baso % (Auto) % Neut # (Auto) (1.40-6.50) K/uL Lymph # (Auto) (1.20-3.40) K/uL [place] # (Auto) (0.11-0.59) K/uL Eos # (Auto) (0.00-0.50) K/uL Baso # (Auto) (0.00-0.20) K/uL Immature Gran # (Auto) (0.01-0.20) K/uL Absolute Nucleated RBC (0.00-0.12) K/uL Nucleated RBC % (auto) % Polychromasia Anisocytosis Target Cells Tear Drop Cells Sodium 143 (136-145) mmol/L Potassium 3.7 (3.5-5.1) mmol/L Chloride 117 H (98-107) mmol/L Carbon Dioxide 21 (21-32) mmol/L Anion Gap 5 (3-11) BUN 51 H (6-23) mg/dl Creatinine 2.93 H (0.6-1.4) mg/dl Est Cr Clr Drug Dosing 29.2 ml/min eGFR 22.99 BUN/Creatinine Ratio 17.4 (10-20) Glucose 106 H (70-99(Fasting)) mg/dl POC Glucose 95 101 H (70-99) mg/dl Calcium 6.4 L (8.6-10.3) mg/dl Phosphorus (2.5-4.9) mg/dl Magnesium (1.7-2.4) mg/dl 08/26/24 08/26/24 08/26/24 Range/Units 22:17 20:49 20:09 WBC (4.8-10.8) K/ul RBC (4.70-6.10) M/uL Hgb (14.0-18.0) g/dl Hct (42.0-52.0) % MCV (80.0-100.0) fL MCH (25.0-34.0) pg MCHC (32.0-36.0) g/dL RDW Std Deviation (36.4-46.3) fL RDW Coeff of Eladio (11.5-14.5) % Plt Count (130-400) K/uL MPV (9.4-12.4) fL Immature Gran % (Auto) % Neut % (Auto) % Lymph % (Auto) % [place] % (Auto) % Eos % (Auto) % Baso % (Auto) % Neut # (Auto) (1.40-6.50) K/uL Lymph # (Auto) (1.20-3.40) K/uL [place] # (Auto) (0.11-0.59) K/uL Eos # (Auto) (0.00-0.50) K/uL Baso # (Auto) (0.00-0.20) K/uL Immature Gran # (Auto) (0.01-0.20) K/uL Absolute Nucleated RBC (0.00-0.12) K/uL Nucleated RBC % (auto) % Polychromasia Anisocytosis Target Cells Tear Drop Cells Sodium 144 (136-145) mmol/L Potassium 3.8 (3.5-5.1) mmol/L Chloride 117 H (98-107) mmol/L Carbon Dioxide 21 (21-32) mmol/L Anion Gap 6 (3-11) BUN 51 H (6-23) mg/dl Creatinine 3.01 H (0.6-1.4) mg/dl Est Cr Clr Drug Dosing 28.4 ml/min eGFR 22.26 BUN/Creatinine Ratio 16.9 (10-20) Glucose 130 H (70-99(Fasting)) mg/dl POC Glucose 114 H 143 H (70-99) mg/dl Calcium 6.9 L (8.6-10.3) mg/dl Phosphorus (2.5-4.9) mg/dl Magnesium (1.7-2.4) mg/dl 08/26/24 08/26/24 08/26/24 Range/Units 18:19 17:08 16:16 WBC (4.8-10.8) K/ul RBC (4.70-6.10) M/uL Hgb (14.0-18.0) g/dl Hct (42.0-52.0) % MCV (80.0-100.0) fL MCH (25.0-34.0) pg MCHC (32.0-36.0) g/dL RDW Std Deviation (36.4-46.3) fL RDW Coeff of Eladio (11.5-14.5) % Plt Count (130-400) K/uL MPV (9.4-12.4) fL Immature Gran % (Auto) % Neut % (Auto) % Lymph % (Auto) % [place] % (Auto) % Eos % (Auto) % Baso % (Auto) % Neut # (Auto) (1.40-6.50) K/uL Lymph # (Auto) (1.20-3.40) K/uL [place] # (Auto) (0.11-0.59) K/uL Eos # (Auto) (0.00-0.50) K/uL Baso # (Auto) (0.00-0.20) K/uL Immature Gran # (Auto) (0.01-0.20) K/uL Absolute Nucleated RBC (0.00-0.12) K/uL Nucleated RBC % (auto) % Polychromasia Anisocytosis Target Cells Tear Drop Cells Sodium 142 (136-145) mmol/L Potassium 4.0 (3.5-5.1) mmol/L Chloride 117 H (98-107) mmol/L Carbon Dioxide 22 (21-32) mmol/L Anion Gap 3 (3-11) BUN 52 H (6-23) mg/dl Creatinine 3.04 H D (0.6-1.4) mg/dl Est Cr Clr Drug Dosing 28.2 ml/min eGFR 22.00 BUN/Creatinine Ratio 17.1 (10-20) Glucose 165 H (70-99(Fasting)) mg/dl POC Glucose 146 H 143 H (70-99) mg/dl Calcium 5.9 L* (8.6-10.3) mg/dl Phosphorus (2.5-4.9) mg/dl Magnesium 2.0 (1.7-2.4) mg/dl 08/26/24 08/26/24 08/26/24 Range/Units 15:21 14:15 12:39 WBC (4.8-10.8) K/ul RBC (4.70-6.10) M/uL Hgb (14.0-18.0) g/dl Hct (42.0-52.0) % MCV (80.0-100.0) fL MCH (25.0-34.0) pg MCHC (32.0-36.0) g/dL RDW Std Deviation (36.4-46.3) fL RDW Coeff of Eladio (11.5-14.5) % Plt Count (130-400) K/uL MPV (9.4-12.4) fL Immature Gran % (Auto) % Neut % (Auto) % Lymph % (Auto) % [place] % (Auto) % Eos % (Auto) % Baso % (Auto) % Neut # (Auto) (1.40-6.50) K/uL Lymph # (Auto) (1.20-3.40) K/uL [place] # (Auto) (0.11-0.59) K/uL Eos # (Auto) (0.00-0.50) K/uL Baso # (Auto) (0.00-0.20) K/uL Immature Gran # (Auto) (0.01-0.20) K/uL Absolute Nucleated RBC (0.00-0.12) K/uL Nucleated RBC % (auto) % Polychromasia Anisocytosis Target Cells Tear Drop Cells Sodium (136-145) mmol/L Potassium (3.5-5.1) mmol/L Chloride (98-107) mmol/L Carbon Dioxide (21-32) mmol/L Anion Gap (3-11) BUN (6-23) mg/dl Creatinine (0.6-1.4) mg/dl Est Cr Clr Drug Dosing ml/min eGFR BUN/Creatinine Ratio (10-20) Glucose (70-99(Fasting)) mg/dl POC Glucose 156 H 180 H 196 H (70-99) mg/dl Calcium (8.6-10.3) mg/dl Phosphorus (2.5-4.9) mg/dl Magnesium (1.7-2.4) mg/dl 08/26/24 08/26/24 Range/Units 11:35 09:43 WBC (4.8-10.8) K/ul RBC (4.70-6.10) M/uL Hgb (14.0-18.0) g/dl Hct (42.0-52.0) % MCV (80.0-100.0) fL MCH (25.0-34.0) pg MCHC (32.0-36.0) g/dL RDW Std Deviation (36.4-46.3) fL RDW Coeff of Eladio (11.5-14.5) % Plt Count (130-400) K/uL MPV (9.4-12.4) fL Immature Gran % (Auto) % Neut % (Auto) % Lymph % (Auto) % [place] % (Auto) % Eos % (Auto) % Baso % (Auto) % Neut # (Auto) (1.40-6.50) K/uL Lymph # (Auto) (1.20-3.40) K/uL [place] # (Auto) (0.11-0.59) K/uL Eos # (Auto) (0.00-0.50) K/uL Baso # (Auto) (0.00-0.20) K/uL Immature Gran # (Auto) (0.01-0.20) K/uL Absolute Nucleated RBC (0.00-0.12) K/uL Nucleated RBC % (auto) % Polychromasia Anisocytosis Target Cells Tear Drop Cells Sodium (136-145) mmol/L Potassium (3.5-5.1) mmol/L Chloride (98-107) mmol/L Carbon Dioxide (21-32) mmol/L Anion Gap (3-11) BUN (6-23) mg/dl Creatinine (0.6-1.4) mg/dl Est Cr Clr Drug Dosing ml/min eGFR BUN/Creatinine Ratio (10-20) Glucose (70-99(Fasting)) mg/dl POC Glucose 188 H 168 H (70-99) mg/dl Calcium (8.6-10.3) mg/dl Phosphorus (2.5-4.9) mg/dl Magnesium (1.7-2.4) mg/dl PG Care Time/CCT Total # of Minutes Spent Total Time Spent with Patient: Total time spent is greater than 50% in coordination of care (as documented) at patient's floor/unit and/or counseling patient: Coding Level of Care Code 66482 SUB INP/OBS CARE 2/35MIN Diagnoses Transaminitis R74.01
[2024-08-27 10:34] LABS: Bilirubin Direct 2.7 mg/dl (0-0.2)
[2024-08-27 10:35] LABS: Albumin Level 1.9 gm/dl (3.4-5.0); Bilirubin,Total 4.2 mg/dl (0.2-1.0); Total Protein 5.3 gm/dl (6.0-8.3)
--- NOTE | 2024-08-27 11:13 | Nephrology Progress Note ---
Date of Service August 27, 2024 Assessment & Plan Admission and Anticipated Discharge Date Admission Date: August 14, 2024 Subjective Assessment & Plan (1) Hypocalcemia: Plan: improving and no longer critical hypocalcemia which started 72 hrs after bisphosphonate for severe hypercalcemia, cause for original ca elevation unclear, and lasted until 08/25 corrected Ca 13.8, Ca 12.8 on 08/20; Ca 12.4 on 08/21; Ca 9.4 on 08/22, 4.9 on 08/23 25 OH D 26; phos 2.7 PTH 7 on 08/19 hypercalcemia RESOLVED after low dose bisphosphonate; hopefully his MS will improve with lower calcium; notably at [facility] admission 08/02-08/11 he was consistently hypophosphatemic and hypocalcemic hypocalcemic (but not critically so) in [facility] Now Ca 7.1-low but much better. (2) JUANA (acute kidney injury): Plan: further improving stage 3 oliguric JUANA w/ multiple phases/hits >> admitted from [facility] w/ sepsis versus AIN also on ddx. Admitting creatinine on 08/13 4.5, which was peak value. was slowly improving creatinine and > 2L UOP daily (in setting of elevated Ca) Hold metformin, Jardiance, Lisinopril. No NSAIDS, no contrast agents Will follow. (3) Encephalopathy: Plan: no purposeful mvts; for repeat MRI today and ICU team to reeval goals of care (4) Hypercalcemia: Plan: RESOLVED w/ bisphosphonate; peak value 13.8 cCa (5) Aspiration pneumonia: Plan: finishing meropenem course Subjective making urine and renal labs not worsening. Mother sister and son at bedside. They just made decision to take him off the ventillator. Review of Systems Review of Systems: Unobtainable due to endotracheal tube and Unobtainable due to reduced consciousness Physical Exam Constitutional: well developed, well nourished and + mechanically ventilated; no acute distress ENMT: Mouth: + dry oral mucous membranes Respiratory: normal respiratory effort Auscultation: + diminished lung sounds Cardiovascular: Rate/Rhythm: regular rate and regular rhythm Extremities: + edema (2-3+) Gastrointestinal (Abdomen): Inspection/Auscultation: + abdomen distended and normal bowel sounds Percussion/Palpation: abdomen soft; abdomen nontender Skin: no rashes, warm and dry Results & Data Vital Signs (Past 12 Hours) Vital Signs Temp Pulse Resp BP Pulse Ox O2 Del Method FiO2 08/27/24 09:06 107 H 29 H 98 08/27/24 09:00 99 H 08/27/24 08:00 Mechanical Vent 08/27/24 08:00 30 08/27/24 08:00 138/66 08/27/24 08:00 123/71 08/27/24 08:00 98 H 21 100 08/27/24 08:00 37.2 C 08/27/24 07:35 97 H 23 100 30 08/27/24 07:33 98 H 18 98 08/27/24 07:00 142/71 H 08/27/24 05:45 100 H 20 97 08/27/24 05:33 102 H 23 97 08/27/24 05:15 108 H 23 93 08/27/24 05:01 159/84 H 08/27/24 04:42 108 H 25 H 96 08/27/24 04:36 110 H 30 H 95 08/27/24 04:18 103 H 17 96 08/27/24 04:01 168/97 H 08/27/24 04:00 30 08/27/24 03:55 99 H 21 98 30 08/27/24 03:54 101 H 23 97 08/27/24 03:45 98 H 17 98 08/27/24 03:36 37.2 C 99 H 17 97 08/27/24 03:30 134/63 08/27/24 03:30 134/63 08/27/24 03:18 99 H 20 98 08/27/24 03:15 98 H 20 99 08/27/24 03:00 97 H 21 98 08/27/24 03:00 119/65 08/27/24 02:45 98 H 21 100 08/27/24 02:36 98 H 21 100 08/27/24 02:24 98 H 22 100 08/27/24 01:45 94 H 14 100 08/27/24 01:33 94 H 16 100 08/27/24 01:30 116/71 08/27/24 01:30 116/71 08/27/24 01:30 116/71 08/27/24 01:30 116/71 08/27/24 01:27 93 H 19 100 08/27/24 01:18 94 H 15 100 08/27/24 01:00 128/66 08/27/24 01:00 128/66 08/27/24 01:00 93 H 16 100 08/27/24 00:45 94 H 18 99 08/27/24 00:33 100 H 21 100 08/27/24 00:30 114/65 08/27/24 00:27 98 H 14 100 08/27/24 00:24 98 H 15 100 08/27/24 00:00 30 08/27/24 00:00 123/69 08/27/24 00:00 101 H 16 99 08/26/24 23:50 105 H 08/26/24 23:45 102 H 18 98 08/26/24 23:39 37.2 C 103 H 19 98 Mechanical Vent 08/26/24 23:31 111/70 08/26/24 23:30 105 H 20 98 08/26/24 23:21 104 H 23 97 08/26/24 23:18 Mechanical Vent 08/26/24 23:12 105 H 22 99
[2024-08-27] MEDS ORDERED: STAT IV Infusion **Titration per Protocol STA (12:43)
[2024-08-27] MEDS ORDERED: ONDANSETRON INJ 2 MG/ML 2 ML VIAL IV PRN (12:43)
[2024-08-27] MEDS ORDERED: ONDANSETRON 4 MG OD TAB SL PRN (12:43)
[2024-08-27] MEDS ORDERED: MoRPHine BOLUS from BAG IV PRN (12:43)
[2024-08-27] MEDS ORDERED: GLYCOPYRROLATE 0.2 MG/ML VIAL IV PRN (12:43)
[2024-08-27] MEDS: HYDROCORTISONE SOD 50 MG in SYRINGE 0 ML IV SCH (17:09)
[2024-08-27] MEDS: INSULIN ASPART PER UNIT CHARGE SC SCH (17:26)
[2024-08-27] MEDS ORDERED: POTASSIUM PHOS 3 MMOL/1 ML INFUSION IV STA (17:49)
--- NOTE | 2024-08-27 17:59 | Hospitalist Progress Note ---
Date of Service August 27, 2024 Assessment & Plan (1) Sepsis: Plan: Per previous hospitalist w/ addendum 63-yo M w/ type 2 diabetes, diabetic ulcer of right midfoot, dyslipidemia, hypophosphatemia, hypertension, history of C. difficile colitis, oral thrush, cellulitis of right leg, abscess of right foot, absent seizures, history of lung cancer, was sent in by [facility] rehab because of confusion and fevers. Patient was in [facility] from 08/02/2024 to 08/11/2024. He was admitted to the [facility] for right foot swelling and redness and fevers. And right foot x-ray showed healed fracture through the midshaft of second metatarsal bone with calcified bridging callus. Pes planus. He was admitted for right foot infection. MRI of the foot was negative for osteomyelitis and showed cellulitis and possible abscess. Status post I&D by podiatry at bedside on August 03 with a deep purulence obtained and sent for culture. Status post I&D with podiatry for sepsis on August 06 and probe to bone very favorable and no clear abscess as suggested by CT scan. During hospital stay he was also completed Tamiflu for influenza. ID suggested Ancef until September 17 and to treat as osteomyelitis for MSSA on wound cultures with 6 weeks of IV antibiotics. On August 07 patient had rash thought to be from Ancef. Rash was worsening after second dose of Ancef and patient was having fevers that thought to be lined up from Ancef doses and was thought possible drug fever. And ID recommended IV Vanco via PICC line. Vancomycin dosing goal AUC 400-600 Mg/liter/hour. And patient was discharged to [facility] on 08/11/2024. At [facility] patient was still having fevers and shortness of breath and erythema around his wound ,does not appear to be receding thought to be spreading. [facility] made ID aware. As per the med rec from the [facility] seems patient had Rocephin. And was sent to our ER today because of fever and altered mental status. Patient can tell his name. Knows that he is in the hospital. Could tell his date of . But could not tell current dates. Denies any cough. Denies headache. Denies chest pain. Denies shortness of breath. Denies belly pain. Status post Sarmiento in the ER. Patient seems poor historian at this time. No sacral ulcer seen. 08/21/[address] Canchola - Code Blue Patient noted to be bradycardic and pale while getting oral care today. Patient was noted to have heart rate in 50-40s and became tachypneic. Prior to the episode, tube feeds were held for oral care per RN. Initially code purple was called and later changed to CODE BLUE and ACLS protocol was performed. Patient required CPR and needed intubation for respiratory support. IV epinephrine was administered per protocol. Chest x-ray, ABG, blood work ordered post intubation. Patient was will be transferred to ICU for further management. Critical care consulted. Updated patient's family over the phone. Sepsis Bilateral lower extremity cellulitis Right foot diabetic ulcer Recently on [facility] was placed on IV Vanco for 6 weeks until September 17 to treat his osteomyelitis though MRI was negative and abscess was I&D by podiatry at [facility] --Right Foot X ray: No definite radiographic evidence of osteomyelitis as described. --Venous Doppler:No evidence of deep venous thrombus within the bilateral lower extremities. --Arterial Doppler:Negative right lower extremity arterial evaluation. No occlusion or significant hemodynamic stenosis with multiphasic waveforms throughout. --CT ABD:No bowel obstruction. Severe hepatic steatosis. Hepatomegaly. Anasarca. Small amount of ascites within the pelvis. -- Blood cultures negative to date -- Urine culture: Heather glabrata IV cefepime discontinued as recommended by infectious disease/neurology Received IV fluids, monitor volume status closely Avoid IV Vanco as trough level high, JUANA Appreciate infectious disease input: Once Vanco trough drops < 15 will start the patient on IV daptomycin. (Will renally dose IV daptomycin through 09/17/24) Appreciate Podiatry Input : Given ongoing treatment, will defer MRI foot for now Continue local wound care Aspiration precautions Vanco trough 14.2 on 08/20/[address] Canchola Discussed with ID on 08/21: Recommends to change Dapto, Zosyn to meropenem today. Recommends lumbar puncture. Hold antivirals for lumbar puncture per ID, Consulted IR for lumbar puncture tomorrow 08/22 Currently pt intubated, s/p code blue episode as above Pt on vasopressors, febrile 08/24 Reached out to ID for further recommendations - when finished w/ meropenem - cont. w/ daptomycin for osteomyelitis 08/25 Off pressors 08/27 Pt extubated, off pressors, responsive to family at the bedside Acute metabolic encephalopathy Likely due to above infection/meds DD: Meningitis, encephalitis Suspected urinary tract infection--Less likely --Head CT:No acute findings in the head/brain. --Urine culture: as above --MRI Brain:No evidence of acute or subacute infarct. Reorient frequently to minimize delirium Repeat CT head showed no acute process -Normal ammonia level -Drug screen negative -VBG showed no hypercarbia -TSH elevated, normal free T4 --Thiamine B1 level pending -EEG: This is an abnormal routine EEG in a patient w altered mental state due to 1. Generalized background slowing suggestive of non specific encephalopathy, 2. Triphasic waves which are non specific but commonly seen in metabolic encephalopathies. --Lamictal levels 6.6 --Elevated INR--received vitamin K Could not get lumbar puncture initially due to elevated INR/patient agitated INR 1.4 on 08/23 Valproic acid held due to rising LFTs. Neurology aware Monitor ammonia levels, received a dose of lactulose on 08/20/2024 Appreciate neurology input. 08/25 CT head - 1. No acute intracranial findings. 2. Exam moderately compromised by motion artifact. However, no CT evidence for anoxic injury. 08/26 MR brain - 1. No sign of infarction or mass lesion 2. Bilateral mastoid air cell opacification, concerning for inflammatory mastoiditis Acute kidney injury likely ATN/toxic secondary to infection, vancomycin/AIN Cr: 4.4>4.1>4.0> 3.8 Creatinine was 1.6 on 08/12/2024 --CT ABD:Mild nonspecific perinephric stranding. No hydronephrosis. Simple 2 cm left renal cyst. No follow-up of this simple cyst is necessary. 08/22 -- current Cr 4.19 - nephrology/ critical care discussed poss. HD w/pt's family 08/24 Cr 3.9 08/25 Cr 3.6 08/26 Cr 3.3 08/27 Cr 2.8 Avoid nephrotoxic agents as able Monitor renal function, urinary output Bladder scan as needed Metformin, Jardiance, lisinopril on hold Avoid NSAIDs Monitor for volume status Received IV fluid Appreciate nephrology input Hypercalcemia --> now hypocalcemia (after hypercalcemia treatment) Hypernatremia Likely due to dehydration Low PTH, vitamin D levels PTH related peptide pending IV fluids as recommended by nephrology Monitor electrolytes closely Also on free water flushes through NG tube Started on calcitonin, Zometa Monitor calcium levels Calcium 12.4 on 08/21 - > (08/22) 9.4 -> 7.4 Sodium 149 on 08/21 -> now 150/148 (essentially unchanged) 08/23 calcium now down (Hypocalcemia) after treatment, ca being replaced - discussed w/ nephrology 08/24 calcium continues to be critically low, 5.6 today, needs replacement Unclear cause of hypercalcemia 08/25 Ca 5.5 - calcium replacement needed today again 08/26 Ca 6.3 08/27 Ca 7.1 Transaminitis Likely due to sepsis, fatty liver --CT ABD:Hepatic steatosis. Hepatomegaly. Minimal free fluid around the liver and in the pelvis. --Hepatitis panel pending --Gall Bladder USD: Trace ascites. Normal sonographic appearance of the gallbladder. Large fatty liver. --Elevated INR Monitor LFTs Hold Lipitor for now GI following Valproate held due to worsening LFTs Hyponatremia--Resolved then hypernatremic as above Anemia Iron deficiency anemia Anemia of chronic disease No obvious signs of bleeding Vit B12, folate levels reviewed Monitor CBC Started on iron supplements Hypertension Hold lisinopril held atenolol , resume with holding parameters when able Monitor DM II Hold home medications Adjust insulin per protocol to minimize hypoglycemic episodes Monitor blood glucose levels Hyperlipidemia Hold statin due to elevated LFTs History of seizures On Lamictal Monitor Remote history of lung cancer Treated with chemo as per records DVT Px: Heparin SQ Disposition- ICU -> downgrade to PCU Admission and Anticipated Discharge Date Admission Date: August 14, 2024 Subjective Pt seen in follow up Pt was code blue/ cardiac arrest on 08/21 evening -> now in ICU Prior to this admission pt in [place] with diabetic foot / ? abscess/ cellulitis ? osteo Admitted here with JUANA, AMS, also elevated LFTs Intubated, on pressors, febrile Does not respond to voice or tactile stimuli at this time. Discussed w/ RN Nephrology, cardiology, GI, ID consulted Discussed poss. HD in the future Discussed w/ nephrology - treatment for hypercalcemia -> now hypocalcemic, Ca replaced. Needs Ca replacement now Diarrhea, hx of c. diff - stool tested negat. c. diff gene Discussed w/ ID - after meropenem course, start daptomycin for OM Now pt is off pressors Yesterday , two granddaughters present at the bedside and discussed with , also obtained additional history from another family member (pt's son Valdemar over the phone). Reports pt was very groggy when he came to [facility] and then gradually got better to his normal with treatment of leg infection. Initially pt was doing well at snf after discharge, then again became groggy and was very slowly answering/ responding , Valdemar was present with the pt at ER here. Today (08/27/2024) Pt extubated, he has been off pressors. He is responsive to family at the bedside. Discussed w/ family, RN at the bedside and CC physician over TT. Currently pt seems comfortable, does not seem to have any concerns/ complaints. Review of Systems Review of Systems: Other (pt extubated, responsive, no complaints) Physical Exam Physical Exam: General Appearance: Moderately built and nourished, just extubated Head: normocephalic, Atraumatic Neck: + IJ placed Respiratory/Chest: decreased air entry b/l, no wheezing Cardiovascular: S1, S2, No murmur Abdomen/GI:Soft, Bowel sounds present Extremities/Musculoskeletal:normal inspection, 1-2+ B/L LE edema, erythema, R great toe s/p amputation, R foot ulcer Neurologic/Psych: responsive to family at bedside, moves extremities Skin: warm, dry Results & Data Results & Data Vital Signs (Past 12 Hours) Vital Signs Temp Pulse Resp BP Pulse Ox O2 Del Method FiO2 08/27/24 15:15 114 H 08/27/24 12:06 110 H 33 H 97 08/27/24 12:00 135/66 08/27/24 11:51 109 H 32 H 97 08/27/24 11:06 108 H 30 H 97 08/27/24 11:00 123/59 L 08/27/24 11:00 123/59 L 08/27/24 10:57 109 H 32 H 97 08/27/24 10:12 111 H 28 H 96 08/27/24 10:00 140/82 08/27/24 09:54 111 H 27 H 96 08/27/24 09:06 107 H 29 H 98 08/27/24 09:00 99 H 08/27/24 08:00 Mechanical Vent 08/27/24 08:00 30 08/27/24 08:00 138/66 08/27/24 08:00 123/71 08/27/24 08:00 98 H 21 100 08/27/24 08:00 37.2 C 08/27/24 07:35 97 H 23 100 30 08/27/24 07:33 98 H 18 98 08/27/24 07:00 142/71 H Laboratory Results 08/27/24 08/27/24 08/27/24 Range/Units 17:20 12:19 09:26 WBC (4.8-10.8) K/ul RBC (4.70-6.10) M/uL Hgb (14.0-18.0) g/dl Hct (42.0-52.0) % MCV (80.0-100.0) fL MCH (25.0-34.0) pg MCHC (32.0-36.0) g/dL RDW Std Deviation (36.4-46.3) fL RDW Coeff of Eladio (11.5-14.5) % Plt Count (130-400) K/uL MPV (9.4-12.4) fL Immature Gran % (Auto) % Neut % (Auto) % Lymph % (Auto) % Cascade % (Auto) % Eos % (Auto) % Baso % (Auto) % Neut # (Auto) (1.40-6.50) K/uL Lymph # (Auto) (1.20-3.40) K/uL Cascade # (Auto) (0.11-0.59) K/uL Eos # (Auto) (0.00-0.50) K/uL Baso # (Auto) (0.00-0.20) K/uL Immature Gran # (Auto) (0.01-0.20) K/uL Absolute Nucleated RBC (0.00-0.12) K/uL Nucleated RBC % (auto) % Polychromasia Anisocytosis Target Cells Tear Drop Cells Sodium (136-145) mmol/L Potassium (3.5-5.1) mmol/L Chloride (98-107) mmol/L Carbon Dioxide (21-32) mmol/L Anion Gap (3-11) BUN (6-23) mg/dl Creatinine (0.6-1.4) mg/dl Est Cr Clr Drug Dosing ml/min eGFR BUN/Creatinine Ratio (10-20) Glucose (70-99(Fasting)) mg/dl POC Glucose 122 H 102 H (70-99) mg/dl POC Glucose (other) (70-99) mg/dl Calcium (8.6-10.3) mg/dl Phosphorus (2.5-4.9) mg/dl Magnesium (1.7-2.4) mg/dl Total Bilirubin 4.2 H (0.2-1.0) mg/dl Direct Bilirubin 2.7 H (0-0.2) mg/dl AST 225 H (13-39) U/L ALT 54 H (7-52) U/L Alkaline Phosphatase 352 H (34-104) U/L Ammonia 38.0 (18-72) umol/L Total Protein 5.3 L (6.0-8.3) gm/dl Albumin 1.9 L (3.4-5.0) gm/dl 08/27/24 08/27/24 08/27/24 Range/Units 07:27 05:51 05:06 WBC 11.96 H (4.8-10.8) K/ul RBC 2.86 L (4.70-6.10) M/uL Hgb 8.7 L (14.0-18.0) g/dl Hct 28.0 L (42.0-52.0) % MCV 97.9 (80.0-100.0) fL MCH 30.4 (25.0-34.0) pg MCHC 31.1 L (32.0-36.0) g/dL RDW Std Deviation 69.3 H (36.4-46.3) fL RDW Coeff of Eladio 20.3 H (11.5-14.5) % Plt Count 326 (130-400) K/uL MPV 9.8 (9.4-12.4) fL Immature Gran % (Auto) 9.2 % Neut % (Auto) 67.3 % Lymph % (Auto) 16.6 % Cascade % (Auto) 6.3 % Eos % (Auto) 0.3 % Baso % (Auto) 0.3 % Neut # (Auto) 8.05 H (1.40-6.50) K/uL Lymph # (Auto) 1.98 (1.20-3.40) K/uL Cascade # (Auto) 0.75 H (0.11-0.59) K/uL Eos # (Auto) 0.04 (0.00-0.50) K/uL Baso # (Auto) 0.04 (0.00-0.20) K/uL Immature Gran # (Auto) 1.10 H (0.01-0.20) K/uL Absolute Nucleated RBC 0.28 H (0.00-0.12) K/uL Nucleated RBC % (auto) 2.3 % Polychromasia 1+ Anisocytosis Present Target Cells 1+ Tear Drop Cells 1+ Sodium 144 (136-145) mmol/L Potassium 3.9 (3.5-5.1) mmol/L Chloride 119 H (98-107) mmol/L Carbon Dioxide 22 (21-32) mmol/L Anion Gap 3 (3-11) BUN 48 H (6-23) mg/dl Creatinine 2.84 H (0.6-1.4) mg/dl Est Cr Clr Drug Dosing 30.3 ml/min eGFR 23.87 BUN/Creatinine Ratio 16.9 (10-20) Glucose 110 H (70-99(Fasting)) mg/dl POC Glucose 110 H 111 H (70-99) mg/dl POC Glucose (other) (70-99) mg/dl Calcium 7.1 L (8.6-10.3) mg/dl Phosphorus 2.1 L (2.5-4.9) mg/dl Magnesium 1.8 (1.7-2.4) mg/dl Total Bilirubin (0.2-1.0) mg/dl Direct Bilirubin (0-0.2) mg/dl AST (13-39) U/L ALT (7-52) U/L Alkaline Phosphatase (34-104) U/L Ammonia (18-72) umol/L Total Protein (6.0-8.3) gm/dl Albumin (3.4-5.0) gm/dl 08/27/24 08/27/24 08/27/24 Range/Units 04:07 03:07 02:09 WBC (4.8-10.8) K/ul RBC (4.70-6.10) M/uL Hgb (14.0-18.0) g/dl Hct (42.0-52.0) % MCV (80.0-100.0) fL MCH (25.0-34.0) pg MCHC (32.0-36.0) g/dL RDW Std Deviation (36.4-46.3) fL RDW Coeff of Eladio (11.5-14.5) % Plt Count (130-400) K/uL MPV (9.4-12.4) fL Immature Gran % (Auto) % Neut % (Auto) % Lymph % (Auto) % Cascade % (Auto) % Eos % (Auto) % Baso % (Auto) % Neut # (Auto) (1.40-6.50) K/uL Lymph # (Auto) (1.20-3.40) K/uL Cascade # (Auto) (0.11-0.59) K/uL Eos # (Auto) (0.00-0.50) K/uL Baso # (Auto) (0.00-0.20) K/uL Immature Gran # (Auto) (0.01-0.20) K/uL Absolute Nucleated RBC (0.00-0.12) K/uL Nucleated RBC % (auto) % Polychromasia Anisocytosis Target Cells Tear Drop Cells Sodium (136-145) mmol/L Potassium (3.5-5.1) mmol/L Chloride (98-107) mmol/L Carbon Dioxide (21-32) mmol/L Anion Gap (3-11) BUN (6-23) mg/dl Creatinine (0.6-1.4) mg/dl Est Cr Clr Drug Dosing ml/min eGFR BUN/Creatinine Ratio (10-20) Glucose (70-99(Fasting)) mg/dl POC Glucose 110 H 127 H 101 H (70-99) mg/dl POC Glucose (other) (70-99) mg/dl Calcium (8.6-10.3) mg/dl Phosphorus (2.5-4.9) mg/dl Magnesium (1.7-2.4) mg/dl Total Bilirubin (0.2-1.0) mg/dl Direct Bilirubin (0-0.2) mg/dl AST (13-39) U/L ALT (7-52) U/L Alkaline Phosphatase (34-104) U/L Ammonia (18-72) umol/L Total Protein (6.0-8.3) gm/dl Albumin (3.4-5.0) gm/dl 08/27/24 08/27/24 08/26/24 Range/Units 02:07 00:17 23:07 WBC (4.8-10.8) K/ul RBC (4.70-6.10) M/uL Hgb (14.0-18.0) g/dl Hct (42.0-52.0) % MCV (80.0-100.0) fL MCH (25.0-34.0) pg MCHC (32.0-36.0) g/dL RDW Std Deviation (36.4-46.3) fL RDW Coeff of Eladio (11.5-14.5) % Plt Count (130-400) K/uL MPV (9.4-12.4) fL Immature Gran % (Auto) % Neut % (Auto) % Lymph % (Auto) % Cascade % (Auto) % Eos % (Auto) % Baso % (Auto) % Neut # (Auto) (1.40-6.50) K/uL Lymph # (Auto) (1.20-3.40) K/uL Cascade # (Auto) (0.11-0.59) K/uL Eos # (Auto) (0.00-0.50) K/uL Baso # (Auto) (0.00-0.20) K/uL Immature Gran # (Auto) (0.01-0.20) K/uL Absolute Nucleated RBC (0.00-0.12) K/uL Nucleated RBC % (auto) % Polychromasia Anisocytosis Target Cells Tear Drop Cells Sodium 143 (136-145) mmol/L Potassium 3.7 (3.5-5.1) mmol/L Chloride 117 H (98-107) mmol/L Carbon Dioxide 21 (21-32) mmol/L Anion Gap 5 (3-11) BUN 51 H (6-23) mg/dl Creatinine 2.93 H (0.6-1.4) mg/dl Est Cr Clr Drug Dosing 29.2 ml/min eGFR 22.99 BUN/Creatinine Ratio 17.4 (10-20) Glucose 106 H (70-99(Fasting)) mg/dl POC Glucose 95 101 H (70-99) mg/dl POC Glucose (other) (70-99) mg/dl Calcium 6.4 L (8.6-10.3) mg/dl Phosphorus (2.5-4.9) mg/dl Magnesium (1.7-2.4) mg/dl Total Bilirubin (0.2-1.0) mg/dl Direct Bilirubin (0-0.2) mg/dl AST (13-39) U/L ALT (7-52) U/L Alkaline Phosphatase (34-104) U/L Ammonia (18-72) umol/L Total Protein (6.0-8.3) gm/dl Albumin (3.4-5.0) gm/dl 08/26/24 08/26/24 08/26/24 Range/Units 22:17 20:49 20:09 WBC (4.8-10.8) K/ul RBC (4.70-6.10) M/uL Hgb (14.0-18.0) g/dl Hct (42.0-52.0) % MCV (80.0-100.0) fL MCH (25.0-34.0) pg MCHC (32.0-36.0) g/dL RDW Std Deviation (36.4-46.3) fL RDW Coeff of Eladio (11.5-14.5) % Plt Count (130-400) K/uL MPV (9.4-12.4) fL Immature Gran % (Auto) % Neut % (Auto) % Lymph % (Auto) % Cascade % (Auto) % Eos % (Auto) % Baso % (Auto) % Neut # (Auto) (1.40-6.50) K/uL Lymph # (Auto) (1.20-3.40) K/uL Cascade # (Auto) (0.11-0.59) K/uL Eos # (Auto) (0.00-0.50) K/uL Baso # (Auto) (0.00-0.20) K/uL Immature Gran # (Auto) (0.01-0.20) K/uL Absolute Nucleated RBC (0.00-0.12) K/uL Nucleated RBC % (auto) % Polychromasia Anisocytosis Target Cells Tear Drop Cells Sodium 144 (136-145) mmol/L Potassium 3.8 (3.5-5.1) mmol/L Chloride 117 H (98-107) mmol/L Carbon Dioxide 21 (21-32) mmol/L Anion Gap 6 (3-11) BUN 51 H (6-23) mg/dl Creatinine 3.01 H (0.6-1.4) mg/dl Est Cr Clr Drug Dosing 28.4 ml/min eGFR 22.26 BUN/Creatinine Ratio 16.9 (10-20) Glucose 130 H (70-99(Fasting)) mg/dl POC Glucose 114 H 143 H (70-99) mg/dl POC Glucose (other) (70-99) mg/dl Calcium 6.9 L (8.6-10.3) mg/dl Phosphorus (2.5-4.9) mg/dl Magnesium (1.7-2.4) mg/dl Total Bilirubin (0.2-1.0) mg/dl Direct Bilirubin (0-0.2) mg/dl AST (13-39) U/L ALT (7-52) U/L Alkaline Phosphatase (34-104) U/L Ammonia (18-72) umol/L Total Protein (6.0-8.3) gm/dl Albumin (3.4-5.0) gm/dl 08/26/24 08/26/24 08/22/24 Range/Units 18:19 17:08 08:08 WBC (4.8-10.8) K/ul RBC (4.70-6.10) M/uL Hgb (14.0-18.0) g/dl Hct (42.0-52.0) % MCV (80.0-100.0) fL MCH (25.0-34.0) pg MCHC (32.0-36.0) g/dL RDW Std Deviation (36.4-46.3) fL RDW Coeff of Eladio (11.5-14.5) % Plt Count (130-400) K/uL MPV (9.4-12.4) fL Immature Gran % (Auto) % Neut % (Auto) % Lymph % (Auto) % Cascade % (Auto) % Eos % (Auto) % Baso % (Auto) % Neut # (Auto) (1.40-6.50) K/uL Lymph # (Auto) (1.20-3.40) K/uL Cascade # (Auto) (0.11-0.59) K/uL Eos # (Auto) (0.00-0.50) K/uL Baso # (Auto) (0.00-0.20) K/uL Immature Gran # (Auto) (0.01-0.20) K/uL Absolute Nucleated RBC (0.00-0.12) K/uL Nucleated RBC % (auto) % Polychromasia Anisocytosis Target Cells Tear Drop Cells Sodium 142 (136-145) mmol/L Potassium 4.0 (3.5-5.1) mmol/L Chloride 117 H (98-107) mmol/L Carbon Dioxide 22 (21-32) mmol/L Anion Gap 3 (3-11) BUN 52 H (6-23) mg/dl Creatinine 3.04 H D (0.6-1.4) mg/dl Est Cr Clr Drug Dosing 28.2 ml/min eGFR 22.00 BUN/Creatinine Ratio 17.1 (10-20) Glucose 165 H (70-99(Fasting)) mg/dl POC Glucose 146 H (70-99) mg/dl POC Glucose (other) 229 H (70-99) mg/dl Calcium 5.9 L* (8.6-10.3) mg/dl Phosphorus (2.5-4.9) mg/dl Magnesium 2.0 (1.7-2.4) mg/dl Total Bilirubin (0.2-1.0) mg/dl Direct Bilirubin (0-0.2) mg/dl AST (13-39) U/L ALT (7-52) U/L Alkaline Phosphatase (34-104) U/L Ammonia (18-72) umol/L Total Protein (6.0-8.3) gm/dl Albumin (3.4-5.0) gm/dl Medications Administered Current Inpatient Medications Aspirin (Aspirin 81 Mg Chew) 81 mg NG DAILY ANDREI Stop: 09/18/24 08:59 Last Admin: 08/27/24 08:33 Dose: 81 mg Atenolol (Atenolol 50 Mg Tablet) 100 mg NG DAILY ANDREI Stop: 09/14/24 08:59 Last Admin: 08/22/24 07:47 Dose: Not Given Atorvastatin Calcium (Atorvastatin 20 Mg Tab) 20 mg PO DAILY [facility] Stop: 09/14/24 08:59 Bisacodyl (Bisacodyl 10 Mg Supp) 10 mg [facility] DAILY PRN PRN Reason: Constipation Stop: 09/13/24 23:09 Calamine/Phenol (Menthol-Zinc Oxide 360 Appln/120 Gm Tube) 1 appln EXT DAILY ANDREI Stop: 09/17/24 15:14 Last Admin: 08/27/24 08:35 Dose: 1 appln Calcium Carbonate (Calcium Carbonate 1,250 Mg/5 Ml Udc) 1,250 mg NG TID [facility] Stop: 09/22/24 08:59 Last Admin: 08/27/24 14:23 Dose: Not Given Cyanocobalamin (Cyanocobalamin (B-12) 500 Mcg Tablet) 500 mcg NG DAILY ANDREI Stop: 09/14/24 08:59 Last Admin: 08/27/24 08:30 Dose: 500 mcg Dextrose (Dextrose 50% 50 Ml Syringe) 25 - 50 ml IV UD PRN; Protocol PRN Reason: Hypoglycemia Protocol Stop: 09/13/24 23:09 Last Admin: 08/21/24 21:58 Dose: 50 ml Enteral Nutritional Formula (Peptamen 1.5 Yovani 1,000 Ml Bag) 1,000 ml NG .See Protocol ANDREI; Protocol Stop: 09/23/24 09:59 Last Admin: 08/26/24 18:32 Dose: 1,000 ml Ferrous Sulfate (Ferrous Sulfate 325 Mg/7.4 Ml Udp) 325 mg NG DAILY ANDREI Stop: 09/18/24 08:59 Last Admin: 08/27/24 08:31 Dose: 325 mg Glucagon (Glucagon For Inj 1 Mg Vial) 1 mg SQ UD PRN; Protocol PRN Reason: Hypoglycemia Protocol Stop: 09/13/24 23:09 Glucose (Glucose 40% Gel 15 Gm Tube) 15 - 30 gm PO UD PRN; Protocol PRN Reason: Hypoglycemia Protocol Stop: 09/13/24 23:09 Glucose (Glucose 10 Tab/Tube) 4 - 8 tab PO UD PRN; Protocol PRN Reason: Hypoglycemia Protocol Stop: 09/13/24 23:09 Glycopyrrolate (Glycopyrrolate 0.2 Mg/Ml Vial) 0.4 mg IV Q4H PRN PRN Reason: Rattling Secretions or Pulm Congestion Stop: 09/26/24 12:42 Heparin Sodium (Beef Lung) (Heparin 10 Unit/Ml 5 Ml Flush) 5 ml FLUSH PRN PRN PRN Reason: Flush Stop: 09/14/24 03:11 Last Admin: 08/18/24 10:08 Dose: 5 ml Heparin Sodium (Porcine) (Heparin Sod 5,000 Unit/0.5 Ml Vial) 5,000 units SQ Q8H ANDREI Stop: 09/14/24 00:00 Last Admin: 08/27/24 17:09 Dose: 5,000 units Thiamine HCl 100 mg/ Syringe 10 mls @ 2 mls/min IV QAM ANDREI Stop: 09/17/24 15:44 Last Admin: 08/27/24 08:34 Dose: 2 mls/min Meropenem 1,000 mg/ Syringe 20 mls @ 4 mls/min IV Q12H ANDREI; Protocol Stop: 08/28/24 02:04 Last Admin: 08/27/24 14:33 Dose: 4 mls/min Pantoprazole Sodium (Protonix) 40 mg in 10 mls @ 5 mls/min IV DAILY ANDREI Stop: 09/21/24 08:59 Last Admin: 08/27/24 08:33 Dose: 5 mls/min Hydrocortisone Sodium (Succinate 50 mg/ Syringe) 1 mls @ 4 mls/min IV Q24H ANDREI Stop: 08/27/24 18:01 Last Admin: 08/27/24 17:09 Dose: 4 mls/min Daptomycin 700 mg/ Syringe 14 mls @ 7 mls/min IV Q48H [facility]; Protocol Stop: 09/17/24 14:01 Morphine Sulfate (Morphine Sulf) 100 mg in 100 mls @ 1 mls/hr IV .Q96H [facility]; Protocol Stop: 09/10/24 12:44 Insulin Aspart (Insulin Aspart Per Unit Charge) 0 units SC Q6 ANDREI Stop: 09/26/24 17:59 Last Admin: 08/27/24 17:26 Dose: Not Given Ipratropium Lawrence (Ipratropium Lawrence Neb Soln 0.02% 0.5mg/2.5ml Vial) 0.5 mg INH QIDR PRN PRN Reason: Shortness Of Breath Or Wheezing Stop: 09/21/24 10:08 Lactobacillus Acidophilus (Advanced Probiotic 625 Mg Capsule) 1,250 mg PO DAILY [facility] Stop: 09/14/24 08:59 Last Admin: 08/22/24 09:26 Dose: 1,250 mg Lamotrigine (Lamotrigine 100 Mg Tab) 100 mg PO BID [facility]; Protocol Stop: 09/14/24 08:59 Last Admin: 08/27/24 08:30 Dose: 100 mg Levalbuterol HCl (Levalbuterol 1.25 Mg/3 Ml Neb) 1.25 mg NEB QIDR PRN PRN Reason: Shortness Of Breath Or Wheezing Stop: 09/20/24 14:59 Lorazepam (Lorazepam 2 Mg/1 Ml Vial) 0.5 mg IV Q4H PRN PRN Reason: Anxiety/Agitation Stop: 09/26/24 12:42 Miscellaneous (Carbohydrates For Hypoglycemia ) 15 - 30 gm PO UD PRN PRN Reason: Hypoglycemia Protocol Stop: 09/13/24 23:09 Morphine Sulfate (Morphine Sulfate 2 Mg/Ml Carp) 2 mg IV Q4H PRN PRN Reason: Pain or Respiratory Distress Stop: 09/10/24 12:42 Morphine Sulfate (Morphine Bolus From Bag) 1 mg IV Q15M PRN PRN Reason: Comfort Care Parameters Stop: 09/10/24 12:42 Multivitamins/Minerals (Multi Vit W/Minerals Liquid 15 Ml Udc) 15 ml NG QAM ANDREI Stop: 09/18/24 08:59 Last Admin: 08/20/24 08:12 Dose: 15 ml Nitroglycerin (Nitroglycerin Sl 0.4 Mg/Tab Tab) 0.4 mg SL Q5M PRN PRN Reason: Chest Pain Stop: 09/13/24 23:09 Ondansetron HCl (Ondansetron Inj 2 Mg/Ml 2 Ml Vial) 4 mg IV Q4H PRN PRN Reason: Nausea &/or Vomiting Stop: 09/26/24 12:42 Ondansetron HCl (Ondansetron 4 Mg Od Tab) 4 mg SL Q4H PRN PRN Reason: Nausea &/or Vomiting Stop: 09/26/24 12:42 Potassium Phosphate (Potassium Phos 3 Mmol/1 Ml Infusion) 6 mmol IV NOW STA Stop: 08/27/24 17:50 Sterile Water (Tube Feeding Water Flush) 150 ml NG Q6H ANDREI Stop: 09/23/24 11:59 Last Admin: 08/27/24 16:06 Dose: Not Given
[2024-08-27] MEDS: POTASSIUM PHOSPHATE 6 MMOL in SODIUM CHLORIDE 0.9% 100 ML IV ONE (18:16)
[2024-08-27] MEDS: MoRPHine SULF 100 MG/100 ML BAG IV SCH (18:51)
[2024-08-28] MEDS: LABETALOL HCL IV 5 MG/ML 20ML IV STA ×2 (03:45→11:16)
[2024-08-28 04:29] LABS: Hematocrit (blood only) 28.1 % (42.0-52.0); Hemoglobin 8.4 g/dl (14.0-18.0); Mean Corpuscular Hemoglobin 29.2 pg (25.0-34.0); Mean Corpuscular Hgb Conc 29.9 g/dL (32.0-36.0); Mean Corpuscular Volume 97.6 fL (80.0-100.0); Mean Platelet Volume 9.9 fL (9.4-12.4); Nucleated RBC # (auto) 0.13 K/uL (0.00-0.12); Nucleated RBC % (auto) 1.1 %; Platelet Count 358 K/uL (130-400); RDW Coefficient of Variation 20.5 % (11.5-14.5); RDW Standard Deviation 71.6 fL (36.4-46.3); Red Blood Count 2.88 M/uL (4.70-6.10); White Blood Count 11.83 K/ul (4.8-10.8)
[2024-08-28 04:43] LABS: BUN Creatinine Ratio 18.5 (10-20); Calcium 6.4 mg/dl (8.6-10.3); Creatinine Clr Calc Pharmacy 31.9 ml/min; Magnesium 1.9 mg/dl (1.7-2.4); Phosphorus 3.1 mg/dl (2.5-4.9); Potassium 4.2 mmol/L (3.5-5.1)
[2024-08-28 04:56] LABS: Basophils # (auto) 0.03 K/uL (0.00-0.20); Basophils % (auto) 0.3 %; Immature Granulocytes # (auto) 0.79 K/uL (0.01-0.20); Immature Granulocytes % (auto) 6.7 %; Lymphocytes # (auto) 1.04 K/uL (1.20-3.40); Lymphocytes % (auto) 8.8 %; Monocytes # (auto) 0.72 K/uL (0.11-0.59); Monocytes % (auto) 6.1 %; Neutrophils # (auto) 9.25 K/uL (1.40-6.50); Neutrophils % (auto) 78.1 %; Polychromasia 1+
[2024-08-28 05:21] LABS: Anisocytosis Present
--- NOTE | 2024-08-28 06:49 | Hospitalist Progress Note ---
Date of Service August 28, 2024 Assessment & Plan (1) Sepsis: Plan: Per previous hospitalist w/ addendum 63-yo M w/ type 2 diabetes, diabetic ulcer of right midfoot, dyslipidemia, hypophosphatemia, hypertension, history of C. difficile colitis, oral thrush, cellulitis of right leg, abscess of right foot, absent seizures, history of lung cancer, was sent in by [facility] rehab because of confusion and fevers. Patient was in [facility] from 08/02/2024 to 08/11/2024. He was admitted to the [facility] for right foot swelling and redness and fevers. And right foot x-ray showed healed fracture through the midshaft of second metatarsal bone with calcified bridging callus. Pes planus. He was admitted for right foot infection. MRI of the foot was negative for osteomyelitis and showed cellulitis and possible abscess. Status post I&D by podiatry at bedside on August 03 with a deep purulence obtained and sent for culture. Status post I&D with podiatry for sepsis on August 06 and probe to bone very favorable and no clear abscess as suggested by CT scan. During hospital stay he was also completed Tamiflu for influenza. ID suggested Ancef until September 17 and to treat as osteomyelitis for MSSA on wound cultures with 6 weeks of IV antibiotics. On August 07 patient had rash thought to be from Ancef. Rash was worsening after second dose of Ancef and patient was having fevers that thought to be lined up from Ancef doses and was thought possible drug fever. And ID recommended IV Vanco via PICC line. Vancomycin dosing goal AUC 400-600 Mg/liter/hour. And patient was discharged to [facility] on 08/11/2024. At [facility] patient was still having fevers and shortness of breath and erythema around his wound ,does not appear to be receding thought to be spreading. [facility] made ID aware. As per the med rec from the [facility] seems patient had Rocephin. And was sent to our ER today because of fever and altered mental status. Patient can tell his name. Knows that he is in the hospital. Could tell his date of . But could not tell current dates. Denies any cough. Denies headache. Denies chest pain. Denies shortness of breath. Denies belly pain. Status post Sarmiento in the ER. Patient seems poor historian at this time. No sacral ulcer seen. 08/21/[address] Canchola - Code Blue Patient noted to be bradycardic and pale while getting oral care today. Patient was noted to have heart rate in 50-40s and became tachypneic. Prior to the episode, tube feeds were held for oral care per RN. Initially code purple was called and later changed to CODE BLUE and ACLS protocol was performed. Patient required CPR and needed intubation for respiratory support. IV epinephrine was administered per protocol. Chest x-ray, ABG, blood work ordered post intubation. Patient was will be transferred to ICU for further management. Critical care consulted. Updated patient's family over the phone. Sepsis Bilateral lower extremity cellulitis Right foot diabetic ulcer Recently on [facility] was placed on IV Vanco for 6 weeks until September 17 to treat his osteomyelitis though MRI was negative and abscess was I&D by podiatry at [facility] --Right Foot X ray: No definite radiographic evidence of osteomyelitis as described. --Venous Doppler:No evidence of deep venous thrombus within the bilateral lower extremities. --Arterial Doppler:Negative right lower extremity arterial evaluation. No occlusion or significant hemodynamic stenosis with multiphasic waveforms throughout. --CT ABD:No bowel obstruction. Severe hepatic steatosis. Hepatomegaly. Anasarca. Small amount of ascites within the pelvis. -- Blood cultures negative to date -- Urine culture: Heather glabrata IV cefepime discontinued as recommended by infectious disease/neurology Received IV fluids, monitor volume status closely Avoid IV Vanco as trough level high, JUANA Appreciate infectious disease input: Once Vanco trough drops < 15 will start the patient on IV daptomycin. (Will renally dose IV daptomycin through 09/17/24) Appreciate Podiatry Input : Given ongoing treatment, will defer MRI foot for now Continue local wound care Aspiration precautions Vanco trough 14.2 on 08/20/[address] Canchola Discussed with ID on 08/21: Recommends to change Dapto, Zosyn to meropenem today. Recommends lumbar puncture. Hold antivirals for lumbar puncture per ID, Consulted IR for lumbar puncture tomorrow 08/22 Currently pt intubated, s/p code blue episode as above Pt on vasopressors, febrile 08/24 Reached out to ID for further recommendations - when finished w/ meropenem - cont. w/ daptomycin for osteomyelitis 08/25 Off pressors 08/27 Pt extubated, off pressors, responsive to family at the bedside 08/28 Pt has his eyes open, tries to speak, moves extremities Acute metabolic encephalopathy Likely due to above infection/meds DD: Meningitis, encephalitis Suspected urinary tract infection--Less likely --Head CT:No acute findings in the head/brain. --Urine culture: as above --MRI Brain:No evidence of acute or subacute infarct. Reorient frequently to minimize delirium Repeat CT head showed no acute process -Normal ammonia level -Drug screen negative -VBG showed no hypercarbia -TSH elevated, normal free T4 --Thiamine B1 level pending -EEG: This is an abnormal routine EEG in a patient w altered mental state due to 1. Generalized background slowing suggestive of non specific encephalopathy, 2. Triphasic waves which are non specific but commonly seen in metabolic encephalopathies. --Lamictal levels 6.6 --Elevated INR--received vitamin K Could not get lumbar puncture initially due to elevated INR/patient agitated INR 1.4 on 08/23 Valproic acid held due to rising LFTs. Neurology aware Monitor ammonia levels, received a dose of lactulose on 08/20/2024 Appreciate neurology input. 08/25 CT head - 1. No acute intracranial findings. 2. Exam moderately compromised by motion artifact. However, no CT evidence for anoxic injury. 08/26 MR brain - 1. No sign of infarction or mass lesion 2. Bilateral mastoid air cell opacification, concerning for inflammatory mastoiditis Acute kidney injury likely ATN/toxic secondary to infection, vancomycin/AIN Cr: 4.4>4.1>4.0> 3.8 Creatinine was 1.6 on 08/12/2024 --CT ABD:Mild nonspecific perinephric stranding. No hydronephrosis. Simple 2 cm left renal cyst. No follow-up of this simple cyst is necessary. 08/22 -- current Cr 4.19 - nephrology/ critical care discussed poss. HD w/pt's family 08/24 Cr 3.9 08/25 Cr 3.6 08/26 Cr 3.3 08/27 Cr 2.8 08/28 Cr 2.7 Avoid nephrotoxic agents as able Monitor renal function, urinary output Bladder scan as needed Metformin, Jardiance, lisinopril on hold Avoid NSAIDs Monitor for volume status Received IV fluid Appreciate nephrology input Nephrology following closely Hypercalcemia --> now hypocalcemia (after hypercalcemia treatment) Hypernatremia Likely due to dehydration Low PTH, vitamin D levels PTH related peptide pending IV fluids as recommended by nephrology Monitor electrolytes closely Also on free water flushes through NG tube Started on calcitonin, Zometa Monitor calcium levels Calcium 12.4 on 08/21 - > (08/22) 9.4 -> 7.4 Sodium 149 on 08/21 -> now 150/148 (essentially unchanged) 08/23 calcium now down (Hypocalcemia) after treatment, ca being replaced - discussed w/ nephrology 08/24 calcium continues to be critically low, 5.6 today, needs replacement Unclear cause of hypercalcemia 08/25 Ca 5.5 - calcium replacement needed today again 08/26 Ca 6.3 08/27 Ca 7.1 08/28 Ca 6.4 -> repleting calcium, nephrology following closely Transaminitis Likely due to sepsis, fatty liver --CT ABD:Hepatic steatosis. Hepatomegaly. Minimal free fluid around the liver and in the pelvis. --Hepatitis panel pending --Gall Bladder USD: Trace ascites. Normal sonographic appearance of the gallbladder. Large fatty liver. --Elevated INR Monitor LFTs Hold Lipitor for now GI following Valproate held due to worsening LFTs Hyponatremia--Resolved then hypernatremic as above Anemia Iron deficiency anemia Anemia of chronic disease No obvious signs of bleeding Vit B12, folate levels reviewed Monitor CBC Started on iron supplements Hypertension Hold lisinopril held atenolol , resume with holding parameters when able Monitor 3/4 Pt now hypertensive and tachycardic. Pt does not have NG tube and not able to take PO at this time- will start iv metoprolol 2.5 mg q6hrs DM II Hold home medications Adjust insulin per protocol to minimize hypoglycemic episodes Monitor blood glucose levels Hyperlipidemia Hold statin due to elevated LFTs History of seizures On Lamictal Monitor Remote history of lung cancer Treated with chemo as per records DVT Px: Heparin SQ Disposition- PCU Admission and Anticipated Discharge Date Admission Date: August 14, 2024 Subjective Pt seen in follow up Pt was code blue/ cardiac arrest on 08/21 evening -> now in ICU Prior to this admission pt in [place] with diabetic foot / ? abscess/ cellulitis ? osteo Admitted here with JUANA, AMS, also elevated LFTs Intubated, on pressors, febrile Nephrology, cardiology, GI, ID consulted Discussed w/ nephrology - treatment for hypercalcemia -> now hypocalcemic, Ca replaced. Needs Ca replacement now Discussed w/ ID - after meropenem course, start daptomycin for OM Now pt is off pressors Previously discussed with two granddaughters present at the bedside and also obtained additional history from another family member (pt's son Valdemar over the phone). Reports pt was very groggy when he came to [facility] and then gradually got better to his normal with treatment of leg infection. Initially pt was doing well at snf after discharge, then again became groggy and was very slowly answering/ responding , Valdemar was present with the pt at ER here. Yesterday (08/27/2024) Pt extubated, he has been off pressors. responsive to family at the bedside. Discussed w/ family, RN at the bedside and CC physician over TT. Currently pt seems comfortable, does not seem to have any concerns/ complaints. 08/28 Pt has his eyes open and tries to speak, but not able to understand him. Per RN, that's how he has been today. No family today present at the bedside. Pt hypertensive - required labetalol and now starting scheduled iv metoprolol as can't give home atenolol (pt does not have ng tube anymore). Review of Systems Review of Systems: Unobtainable due to cognitive status Physical Exam Physical Exam: General Appearance: Moderately built and nourished, extubated yesterday Head: normocephalic, Atraumatic Neck: + IJ placed Respiratory/Chest: decreased air entry b/l, no wheezing Cardiovascular: S1, S2, No murmur Abdomen/GI:Soft, Bowel sounds present Extremities/Musculoskeletal:normal inspection, 1-2+ B/L LE edema, erythema, R great toe s/p amputation, R foot ulcer Neurologic/Psych: eyes open, tries to speak, moves extremities Skin: warm, dry Results & Data Results & Data Vital Signs (Past 12 Hours) Vital Signs Temp Pulse Resp BP BP Pulse Ox O2 Del Method 08/28/24 03:48 115 H 174/108 H 08/28/24 03:45 116 H 174/108 H 08/28/24 03:35 114 H 08/28/24 03:23 174/108 H 08/28/24 01:18 36.7 C 08/28/24 00:36 115 H 38 H 97 08/28/24 00:15 115 H 36 H 98 08/28/24 00:13 181/97 H 08/28/24 00:13 181/97 H 08/28/24 00:13 181/97 H 08/28/24 00:06 115 H 38 H 97 08/28/24 00:03 115 H 37 H 97 08/28/24 00:00 114 H 41 H 97 08/27/24 23:45 115 H 40 H 97 08/27/24 23:39 114 H 41 H 97 08/27/24 23:15 114 H 37 H 96 08/27/24 23:00 113 H 45 H 96 08/27/24 22:48 114 H 36 H 94 08/27/24 22:33 113 H 42 H 96 08/27/24 22:24 113 H 41 H 95 08/27/24 22:03 112 H 44 H 95 08/27/24 21:30 113 H 29 H 94 08/27/24 21:18 114 H 32 H 94 08/27/24 21:12 113 H 40 H 94 08/27/24 20:45 113 H 41 H 93 08/27/24 20:30 117 H 29 H 92 08/27/24 20:15 115 H 39 H 91 08/27/24 20:01 176/100 H 08/27/24 20:01 176/100 H 08/27/24 20:00 Oxymask 08/27/24 20:00 114 H 40 H 91 08/27/24 20:00 36.7 C 08/27/24 19:51 116 H 41 H 90 08/27/24 19:33 113 H 34 H 94 08/27/24 19:15 114 H 40 H 96 08/27/24 19:03 115 H 29 H 97 O2 Flow Rate 08/28/24 03:48 08/28/24 03:45 08/28/24 03:35 08/28/24 03:23 08/28/24 01:18 08/28/24 00:36 08/28/24 00:15 08/28/24 00:13 08/28/24 00:13 08/28/24 00:13 08/28/24 00:06 08/28/24 00:03 08/28/24 00:00 08/27/24 23:45 08/27/24 23:39 08/27/24 23:15 08/27/24 23:00 08/27/24 22:48 08/27/24 22:33 08/27/24 22:24 08/27/24 22:03 08/27/24 21:30 08/27/24 21:18 08/27/24 21:12 08/27/24 20:45 08/27/24 20:30 08/27/24 20:15 08/27/24 20:01 08/27/24 20:01 08/27/24 20:00 4 08/27/24 20:00 08/27/24 20:00 08/27/24 19:51 08/27/24 19:33 08/27/24 19:15 08/27/24 19:03 Laboratory Results 08/28/24 08/28/24 08/28/24 Range/Units 05:35 03:50 00:19 WBC 11.83 H (4.8-10.8) K/ul RBC 2.88 L (4.70-6.10) M/uL Hgb 8.4 L (14.0-18.0) g/dl Hct 28.1 L (42.0-52.0) % MCV 97.6 (80.0-100.0) fL MCH 29.2 (25.0-34.0) pg MCHC 29.9 L (32.0-36.0) g/dL RDW Std Deviation 71.6 H (36.4-46.3) fL RDW Coeff of Eladio 20.5 H (11.5-14.5) % Plt Count 358 (130-400) K/uL MPV 9.9 (9.4-12.4) fL Immature Gran % (Auto) 6.7 % Neut % (Auto) 78.1 % Lymph % (Auto) 8.8 % [place] % (Auto) 6.1 % Eos % (Auto) 0.0 % Baso % (Auto) 0.3 % Neut # (Auto) 9.25 H (1.40-6.50) K/uL Lymph # (Auto) 1.04 L (1.20-3.40) K/uL [place] # (Auto) 0.72 H (0.11-0.59) K/uL Eos # (Auto) 0.00 (0.00-0.50) K/uL Baso # (Auto) 0.03 (0.00-0.20) K/uL Immature Gran # (Auto) 0.79 H (0.01-0.20) K/uL Absolute Nucleated RBC 0.13 H (0.00-0.12) K/uL Nucleated RBC % (auto) 1.1 % Polychromasia 1+ Anisocytosis Present Target Cells Tear Drop Cells Sodium 148 H (136-145) mmol/L Potassium 4.2 (3.5-5.1) mmol/L Chloride 121 H (98-107) mmol/L Carbon Dioxide 19 L (21-32) mmol/L Anion Gap 8 (3-11) BUN 50 H (6-23) mg/dl Creatinine 2.70 H (0.6-1.4) mg/dl Est Cr Clr Drug Dosing 31.9 ml/min eGFR 25.36 BUN/Creatinine Ratio 18.5 (10-20) Glucose 214 H (70-99(Fasting)) mg/dl POC Glucose 209 H 209 H (70-99) mg/dl POC Glucose (other) (70-99) mg/dl Calcium 6.4 L (8.6-10.3) mg/dl Phosphorus 3.1 D (2.5-4.9) mg/dl Magnesium 1.9 (1.7-2.4) mg/dl Total Bilirubin (0.2-1.0) mg/dl Direct Bilirubin (0-0.2) mg/dl AST (13-39) U/L ALT (7-52) U/L Alkaline Phosphatase (34-104) U/L Ammonia (18-72) umol/L Total Creatine Kinase 61 (30-223) U/L Total Protein (6.0-8.3) gm/dl Albumin (3.4-5.0) gm/dl 08/27/24 08/27/24 08/27/24 Range/Units 17:20 12:19 09:26 WBC (4.8-10.8) K/ul RBC (4.70-6.10) M/uL Hgb (14.0-18.0) g/dl Hct (42.0-52.0) % MCV (80.0-100.0) fL MCH (25.0-34.0) pg MCHC (32.0-36.0) g/dL RDW Std Deviation (36.4-46.3) fL RDW Coeff of Eladio (11.5-14.5) % Plt Count (130-400) K/uL MPV (9.4-12.4) fL Immature Gran % (Auto) % Neut % (Auto) % Lymph % (Auto) % [place] % (Auto) % Eos % (Auto) % Baso % (Auto) % Neut # (Auto) (1.40-6.50) K/uL Lymph # (Auto) (1.20-3.40) K/uL [place] # (Auto) (0.11-0.59) K/uL Eos # (Auto) (0.00-0.50) K/uL Baso # (Auto) (0.00-0.20) K/uL Immature Gran # (Auto) (0.01-0.20) K/uL Absolute Nucleated RBC (0.00-0.12) K/uL Nucleated RBC % (auto) % Polychromasia Anisocytosis Target Cells Tear Drop Cells Sodium (136-145) mmol/L Potassium (3.5-5.1) mmol/L Chloride (98-107) mmol/L Carbon Dioxide (21-32) mmol/L Anion Gap (3-11) BUN (6-23) mg/dl Creatinine (0.6-1.4) mg/dl Est Cr Clr Drug Dosing ml/min eGFR BUN/Creatinine Ratio (10-20) Glucose (70-99(Fasting)) mg/dl POC Glucose 122 H 102 H (70-99) mg/dl POC Glucose (other) (70-99) mg/dl Calcium (8.6-10.3) mg/dl Phosphorus (2.5-4.9) mg/dl Magnesium (1.7-2.4) mg/dl Total Bilirubin 4.2 H (0.2-1.0) mg/dl Direct Bilirubin 2.7 H (0-0.2) mg/dl AST 225 H (13-39) U/L ALT 54 H (7-52) U/L Alkaline Phosphatase 352 H (34-104) U/L Ammonia 38.0 (18-72) umol/L Total Creatine Kinase (30-223) U/L Total Protein 5.3 L (6.0-8.3) gm/dl Albumin 1.9 L (3.4-5.0) gm/dl 08/27/24 08/27/24 08/22/24 Range/Units 07:27 05:51 08:08 WBC (4.8-10.8) K/ul RBC (4.70-6.10) M/uL Hgb (14.0-18.0) g/dl Hct (42.0-52.0) % MCV (80.0-100.0) fL MCH (25.0-34.0) pg MCHC (32.0-36.0) g/dL RDW Std Deviation (36.4-46.3) fL RDW Coeff of Eladio (11.5-14.5) % Plt Count (130-400) K/uL MPV (9.4-12.4) fL Immature Gran % (Auto) 9.2 % Neut % (Auto) 67.3 % Lymph % (Auto) 16.6 % [place] % (Auto) 6.3 % Eos % (Auto) 0.3 % Baso % (Auto) 0.3 % Neut # (Auto) 8.05 H (1.40-6.50) K/uL Lymph # (Auto) 1.98 (1.20-3.40) K/uL [place] # (Auto) 0.75 H (0.11-0.59) K/uL Eos # (Auto) 0.04 (0.00-0.50) K/uL Baso # (Auto) 0.04 (0.00-0.20) K/uL Immature Gran # (Auto) 1.10 H (0.01-0.20) K/uL Absolute Nucleated RBC (0.00-0.12) K/uL Nucleated RBC % (auto) % Polychromasia 1+ Anisocytosis Present Target Cells 1+ Tear Drop Cells 1+ Sodium 144 (136-145) mmol/L Potassium 3.9 (3.5-5.1) mmol/L Chloride 119 H (98-107) mmol/L Carbon Dioxide 22 (21-32) mmol/L Anion Gap 3 (3-11) BUN 48 H (6-23) mg/dl Creatinine 2.84 H (0.6-1.4) mg/dl Est Cr Clr Drug Dosing 30.3 ml/min eGFR 23.87 BUN/Creatinine Ratio 16.9 (10-20) Glucose 110 H (70-99(Fasting)) mg/dl POC Glucose 110 H (70-99) mg/dl POC Glucose (other) 229 H (70-99) mg/dl Calcium 7.1 L (8.6-10.3) mg/dl Phosphorus 2.1 L (2.5-4.9) mg/dl Magnesium 1.8 (1.7-2.4) mg/dl Total Bilirubin (0.2-1.0) mg/dl Direct Bilirubin (0-0.2) mg/dl AST (13-39) U/L ALT (7-52) U/L Alkaline Phosphatase (34-104) U/L Ammonia (18-72) umol/L Total Creatine Kinase (30-223) U/L Total Protein (6.0-8.3) gm/dl Albumin (3.4-5.0) gm/dl Medications Administered Current Inpatient Medications Aspirin (Aspirin 81 Mg Chew) 81 mg NG DAILY ANDREI Stop: 09/18/24 08:59 Last Admin: 08/27/24 08:33 Dose: 81 mg Atenolol (Atenolol 50 Mg Tablet) 100 mg NG DAILY ANDREI Stop: 09/14/24 08:59 Last Admin: 08/22/24 07:47 Dose: Not Given Atorvastatin Calcium (Atorvastatin 20 Mg Tab) 20 mg PO DAILY ANDREI Stop: 09/14/24 08:59 Bisacodyl (Bisacodyl 10 Mg Supp) 10 mg WA DAILY PRN PRN Reason: Constipation Stop: 09/13/24 23:09 Calamine/Phenol (Menthol-Zinc Oxide 360 Appln/120 Gm Tube) 1 appln EXT DAILY ANDREI Stop: 09/17/24 15:14 Last Admin: 08/27/24 08:35 Dose: 1 appln Calcium Carbonate (Calcium Carbonate 1,250 Mg/5 Ml Udc) 1,250 mg NG TID ANDREI Stop: 09/22/24 08:59 Last Admin: 08/27/24 18:51 Dose: Not Given Cyanocobalamin (Cyanocobalamin (B-12) 500 Mcg Tablet) 500 mcg NG DAILY [facility] Stop: 09/14/24 08:59 Last Admin: 08/27/24 08:30 Dose: 500 mcg Dextrose (Dextrose 50% 50 Ml Syringe) 25 - 50 ml IV UD PRN; Protocol PRN Reason: Hypoglycemia Protocol Stop: 09/13/24 23:09 Last Admin: 08/21/24 21:58 Dose: 50 ml Enteral Nutritional Formula (Peptamen 1.5 Yovani 1,000 Ml Bag) 1,000 ml NG .See Protocol ANDREI; Protocol Stop: 09/23/24 09:59 Last Admin: 08/26/24 18:32 Dose: 1,000 ml Ferrous Sulfate (Ferrous Sulfate 325 Mg/7.4 Ml Udp) 325 mg NG DAILY ANDREI Stop: 09/18/24 08:59 Last Admin: 08/27/24 08:31 Dose: 325 mg Glucagon (Glucagon For Inj 1 Mg Vial) 1 mg SQ UD PRN; Protocol PRN Reason: Hypoglycemia Protocol Stop: 09/13/24 23:09 Glucose (Glucose 40% Gel 15 Gm Tube) 15 - 30 gm PO UD PRN; Protocol PRN Reason: Hypoglycemia Protocol Stop: 09/13/24 23:09 Glucose (Glucose 10 Tab/Tube) 4 - 8 tab PO UD PRN; Protocol PRN Reason: Hypoglycemia Protocol Stop: 09/13/24 23:09 Glycopyrrolate (Glycopyrrolate 0.2 Mg/Ml Vial) 0.4 mg IV Q4H PRN PRN Reason: Rattling Secretions or Pulm Congestion Stop: 09/26/24 12:42 Heparin Sodium (Beef Lung) (Heparin 10 Unit/Ml 5 Ml Flush) 5 ml FLUSH PRN PRN PRN Reason: Flush Stop: 09/14/24 03:11 Last Admin: 08/18/24 10:08 Dose: 5 ml Heparin Sodium (Porcine) (Heparin Sod 5,000 Unit/0.5 Ml Vial) 5,000 units SQ Q8H ANDREI Stop: 09/14/24 00:00 Last Admin: 08/28/24 00:25 Dose: 5,000 units Thiamine HCl 100 mg/ Syringe 10 mls @ 2 mls/min IV QAM [facility] Stop: 09/17/24 15:44 Last Admin: 08/27/24 08:34 Dose: 2 mls/min Pantoprazole Sodium (Protonix) 40 mg in 10 mls @ 5 mls/min IV DAILY [facility] Stop: 09/21/24 08:59 Last Admin: 08/27/24 08:33 Dose: 5 mls/min Daptomycin 700 mg/ Syringe 14 mls @ 7 mls/min IV Q48H [facility]; Protocol Stop: 09/17/24 14:01 Morphine Sulfate (Morphine Sulf) 100 mg in 100 mls @ 1 mls/hr IV .Q96H [facility]; Protocol Stop: 09/10/24 12:44 Last Admin: 08/27/24 18:51 Dose: Not Given Insulin Aspart (Insulin Aspart Per Unit Charge) 0 units SC Q6 [facility] Stop: 09/26/24 17:59 Last Admin: 08/28/24 05:40 Dose: 2 units Ipratropium [place] (Ipratropium [place] Neb Soln 0.02% 0.5mg/2.5ml Vial) 0.5 mg INH QIDR PRN PRN Reason: Shortness Of Breath Or Wheezing Stop: 09/21/24 10:08 Lactobacillus Acidophilus (Advanced Probiotic 625 Mg Capsule) 1,250 mg PO DAILY [facility] Stop: 09/14/24 08:59 Last Admin: 08/22/24 09:26 Dose: 1,250 mg Lamotrigine (Lamotrigine 100 Mg Tab) 100 mg PO BID [facility]; Protocol Stop: 09/14/24 08:59 Last Admin: 08/27/24 18:52 Dose: Not Given Levalbuterol HCl (Levalbuterol 1.25 Mg/3 Ml Neb) 1.25 mg NEB QIDR PRN PRN Reason: Shortness Of Breath Or Wheezing Stop: 09/20/24 14:59 Lorazepam (Lorazepam 2 Mg/1 Ml Vial) 0.5 mg IV Q4H PRN PRN Reason: Anxiety/Agitation Stop: 09/26/24 12:42 Miscellaneous (Carbohydrates For Hypoglycemia ) 15 - 30 gm PO UD PRN PRN Reason: Hypoglycemia Protocol Stop: 09/13/24 23:09 Morphine Sulfate (Morphine Sulfate 2 Mg/Ml Carp) 2 mg IV Q4H PRN PRN Reason: Pain or Respiratory Distress Stop: 09/10/24 12:42 Morphine Sulfate (Morphine Bolus From Bag) 1 mg IV Q15M PRN PRN Reason: Comfort Care Parameters Stop: 09/10/24 12:42 Multivitamins/Minerals (Multi Vit W/Minerals Liquid 15 Ml Udc) 15 ml NG QAM ANDREI Stop: 09/18/24 08:59 Last Admin: 08/20/24 08:12 Dose: 15 ml Nitroglycerin (Nitroglycerin Sl 0.4 Mg/Tab Tab) 0.4 mg SL Q5M PRN PRN Reason: Chest Pain Stop: 09/13/24 23:09 Ondansetron HCl (Ondansetron Inj 2 Mg/Ml 2 Ml Vial) 4 mg IV Q4H PRN PRN Reason: Nausea &/or Vomiting Stop: 09/26/24 12:42 Ondansetron HCl (Ondansetron 4 Mg Od Tab) 4 mg SL Q4H PRN PRN Reason: Nausea &/or Vomiting Stop: 09/26/24 12:42 Sterile Water (Tube Feeding Water Flush) 150 ml NG Q6H ANDREI Stop: 09/23/24 11:59 Last Admin: 08/27/24 20:21 Dose: Not Given
[2024-08-28] MEDS: CALCIUM GLUCONATE 1,000 MG/60 ML BAG IV STA (07:16)
--- NOTE | 2024-08-28 11:50 | Nephrology Progress Note ---
Date of Service August 28, 2024 Assessment & Plan Admission and Anticipated Discharge Date Admission Date: August 14, 2024 Subjective Assessment & Plan (1) Hypocalcemia: Plan: improving and no longer critical hypocalcemia which started 72 hrs after bisphosphonate for severe hypercalcemia, cause for original ca elevation unclear, and lasted until 08/25 corrected Ca 13.8, Ca 12.8 on 08/20; Ca 12.4 on 08/21; Ca 9.4 on 08/22, 4.9 on 08/23 hypercalcemia RESOLVED after low dose bisphosphonate; Ca still low. now 6.4. Give another 3 gm iv calcium gluconate--hard to raise the Ca ++ easily. (2) JUANA (acute kidney injury): Plan: further improving stage 3 oliguric JUANA w/ multiple phases/hits >> admitted from [facility] w/ sepsis versus AIN also on ddx. Admitting creatinine on 08/13 4.5, which was peak value. was slowly improving creatinine and > 2L UOP daily (in setting of elevated Ca) Hold metformin, Jardiance, Lisinopril. No NSAIDS, no contrast agents Will follow. Now na is 148---Unable to give Free water flush. So give 1000 ml d5w (3) Encephalopathy: Plan: no purposeful mvts; for repeat MRI today and ICU team to reeval goals of care (4) Hypercalcemia: Plan: RESOLVED w/ bisphosphonate; peak value 13.8 cCa (5) Aspiration pneumonia: Plan: finishing meropenem course Subjective making urine and renal labs slightly better with good urine output he has been taken off the vent and plan is for Hospice care at [facility]. Review of Systems Review of Systems: Unobtainable due to endotracheal tube and Unobtainable due to reduced consciousness Physical Exam Constitutional: well developed, well nourished and + mechanically ventilated; no acute distress ENMT: Mouth: + dry oral mucous membranes Respiratory: normal respiratory effort Auscultation: + diminished lung sounds Cardiovascular: Rate/Rhythm: regular rate and regular rhythm Extremities: + edema (2-3+) Gastrointestinal (Abdomen): Inspection/Auscultation: + abdomen distended and normal bowel sounds Percussion/Palpation: abdomen soft; abdomen nontender Skin: no rashes, warm and dry Results & Data Vital Signs (Past 12 Hours) Vital Signs Temp Pulse Pulse Resp BP BP Pulse Ox 08/28/24 11:36 109 H 165/105 H 08/28/24 11:16 113 H 169/86 H 08/28/24 10:34 37 C 113 H 22 181/95 H 96 08/28/24 10:25 98 08/28/24 08:41 08/28/24 08:32 36.4 C L 113 H 20 169/92 H 97 08/28/24 03:48 115 H 174/108 H 08/28/24 03:45 116 H 174/108 H 08/28/24 03:35 114 H 08/28/24 03:23 174/108 H 08/28/24 01:18 36.7 C 08/28/24 00:36 115 H 38 H 97 08/28/24 00:15 115 H 36 H 98 08/28/24 00:13 181/97 H 08/28/24 00:13 181/97 H 08/28/24 00:13 181/97 H 08/28/24 00:06 115 H 38 H 97 08/28/24 00:03 115 H 37 H 97 08/28/24 00:00 114 H 41 H 97 O2 Del Method O2 Flow Rate 08/28/24 11:36 08/28/24 11:16 08/28/24 10:34 Nasal Cannula 2 08/28/24 10:25 Oxymask 2 08/28/24 08:41 Oxymask 4 08/28/24 08:32 Oxymask 4 08/28/24 03:48 08/28/24 03:45 08/28/24 03:35 08/28/24 03:23 08/28/24 01:18 08/28/24 00:36 08/28/24 00:15 08/28/24 00:13 08/28/24 00:13 08/28/24 00:13 08/28/24 00:06 08/28/24 00:03 08/28/24 00:00
[2024-08-28] MEDS: DEXTROSE 5% 1,000 ML IV SCH (11:55)
[2024-08-28] MEDS: CALCIUM GLUCONATE 1,000 MG/60 ML BAG IV SCH (12:00)
[2024-08-28] MEDS: DAPTOmycin 700 MG in SYRINGE 0 ML IV SCH (13:54)
[2024-08-28] MEDS: METOPROLOL TARTRATE 1 MG/ML VIAL IV STA (17:43)
[2024-08-28] MEDS: METOPROLOL TARTRATE 1 MG/ML VIAL IV SCH (23:59)
[2024-08-29 05:10] LABS: Basophils # (auto) 0.03 K/uL (0.00-0.20); Basophils % (auto) 0.3 %; Eosinophils # (auto) 0.53 K/uL (0.00-0.50); Eosinophils % (auto) 4.6 %; Hematocrit (blood only) 29.5 % (42.0-52.0); Hemoglobin 8.9 g/dl (14.0-18.0); Immature Granulocytes # (auto) 0.33 K/uL (0.01-0.20); Immature Granulocytes % (auto) 2.9 %; Lymphocytes # (auto) 1.96 K/uL (1.20-3.40); Lymphocytes % (auto) 17.1 %; Mean Corpuscular Hemoglobin 29.4 pg (25.0-34.0); Mean Corpuscular Hgb Conc 30.2 g/dL (32.0-36.0); Mean Corpuscular Volume 97.4 fL (80.0-100.0); Mean Platelet Volume 9.4 fL (9.4-12.4); Neutrophils % (auto) 68.1 %; Nucleated RBC # (auto) 0.05 K/uL (0.00-0.12); Nucleated RBC % (auto) 0.4 %; Platelet Count 410 K/uL (130-400); RDW Coefficient of Variation 21.2 % (11.5-14.5); RDW Standard Deviation 74.2 fL (36.4-46.3); Red Blood Count 3.03 M/uL (4.70-6.10); White Blood Count 11.45 K/ul (4.8-10.8)
[2024-08-29 05:19] LABS: BUN Creatinine Ratio 20.9 (10-20); Calcium 6.4 mg/dl (8.6-10.3); Magnesium 1.6 mg/dl (1.7-2.4); Phosphorus 3.1 mg/dl (2.5-4.9); Potassium 3.4 mmol/L (3.5-5.1)
[2024-08-29 05:33] LABS: Anisocytosis Present; Polychromasia 1+
--- NOTE | 2024-08-29 08:34 | Palliative Care Consultation ---
Date of Consultation August 29, 2024 Assessment & Plan (1) Palliative care by specialist: Plan Family elected DISTRICT MANAGER, hospice at [facility] Care mgt is already working on dispo for this plan IP Acute pall med consult is not indicated chart reviewed/pt not seen/NO charge submitted Consult is deferred. Thank you for this consult. Please page with any additional concerns. Beth Prescott DNP Director, Palliative Medicine History of Present Illness Reason for Consultation: "GOC" Attending Physician: Otilia Major MD History of Present Illness Chartr [facility] note: ELIDIA CHARLES Male : 1960 MedRec# [id number] 08/28/24 13:03 - Case Management by Araseli Benitez RN [facility] Num: [id number] : 1960 Patient Age: 63 Addendum entered by Araseli Benitez RN 08/28/24 14:12: Spoke to Tawana over the phone. Patient can return on hospice. The family will need to pay $333.00 per day for the room and board. Spoke to brittni Lucas. Discussed options with her. She is going to talk with the patients children to see if they would like the patient at [facility] or in [facility]. Explained to her that referrals can be placed to facilities out of the area, but the main concern is whether the patient will be able to handle the transport. Waiting for the family to let CM know where to place the referrals at. CM following. Original Note: Case Management: Patient transitioned to DISTRICT MANAGER. Received a GIP consult. Left 2 VM with Tawana to see if she can accept the patient back on Hospice prior to talking with patients family. CM will continue to follow. Allergies Allergy/AdvReac Type Severity Reaction Status Date / Time cefazolin Allergy Intermediate Rash Verified 08/14/24 23:14 Home Medications Medication Instructions Recorded Confirmed Type Lactobacillus acidophilus 10 10,000 mmu cells PO DAILY 08/14/24 08/14/24 History billion cell capsule (Probiotic) aspirin 81 mg tablet,delayed 81 mg PO DAILY 08/14/24 08/14/24 History release atenolol 100 mg tablet 100 mg PO DAILY 08/14/24 08/14/24 History atorvastatin 20 mg tablet 20 mg PO DAILY 08/14/24 08/14/24 History bisacodyl 10 mg rectal suppository 10 mg OR DAILY PRN Constipation 08/14/24 08/14/24 History (Dulcolax (bisacodyl)) ceftriaxone 1 gram intravenous 1 g IV DAILY 08/14/24 08/14/24 History solution cyanocobalamin (vitamin B-12) 500 500 mcg PO DAILY 08/14/24 08/14/24 History mcg tablet empagliflozin 25 mg tablet 25 mg PO DAILY 08/14/24 08/14/24 History gabapentin 300 mg capsule 600 mg PO HS 08/14/24 08/14/24 History hydroxyzine HCl 10 mg tablet 10 mg PO HS PRN Anxiety 08/14/24 08/14/24 History lamotrigine 100 mg tablet 100 mg PO BID 08/14/24 08/14/24 History (Lamictal) lisinopril 20 mg tablet 20 mg PO DAILY 08/14/24 08/14/24 History metformin 500 mg tablet 500 mg PO BID 08/14/24 08/14/24 History multivitamin with minerals 1 tab PO DAILY 08/14/24 08/14/24 History ondansetron 4 mg disintegrating 4 mg PO Q8H PRN Nausea And Vomiting 08/14/24 08/14/24 History tablet oxycodone 5 mg tablet 5 mg PO Q6H PRN Severe Pain (Scale 08/14/24 08/14/24 History Score 7-10) vancomycin 1,000 mg intravenous 1 g IV UD 08/14/24 08/14/24 History injection Patient History Social History Smoking Status: Never smoker Hx Alcohol Use: No Hx Substance Use: No Preferred Language: Slovak Communication Ability: Impaired Senior 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 Required: No Beliefs That Will Affect Care: Spiritual Current Living Situation: Personal Care Facility Current Living Situation Comment: Lives at [facility] currently Other Information That Helps Us Care for You: No Feels Safe at Home: Yes Safety Concerns: Feels Safe At This Time Assistive Devices: None Results & Data Vital Signs (Past 12 Hours) Vital Signs Temp Pulse Pulse Resp BP BP Pulse Ox 08/29/24 05:58 117 H 168/109 H 08/29/24 05:15 119 H 168/109 H 08/29/24 00:10 38.2 C H 112 H 22 151/83 H 98 08/29/24 00:09 109 H 151/83 H 08/28/24 23:59 118 H 151/104 H O2 Del Method 08/29/24 05:58 08/29/24 05:15 08/29/24 00:10 Room Air 08/29/24 00:09 08/28/24 23:59 PG Care Time/CCT Total # of Minutes Spent Total Time Spent with Patient: Total time spent is greater than 50% in coordination of care (as documented) at patient's floor/unit and/or counseling patient: Coding Level of Care Code None Diagnoses Palliative care by specialist Z51.5
[2024-08-29] MEDS: MAGNESIUM SULFATE / D5W 1 GM/100 ML BAG IV SCH (09:17)
[2024-08-29] MEDS: POTASSIUM CHLORIDE / WTR 10 MEQ/100 ML PLCT IV SCH (09:17)
--- NOTE | 2024-08-29 13:18 | Communication Note ---
Date of Service: August 29, 2024 Palliative Medicine Brief Note Contacted by primary team with update that the family is conflicted with regards to the goals of care and perceive that comfort care/hospice were not adequately discussed with them. Per [id number], she feels a meeting with both the patient's sons as necessary. I called both sons and got voicemail. I left a voicemail for Jj Islas who called me back approximately 30 minutes later and we agreed on a family meeting for tomorrow, , 08/30/2024 at 11:30 AM in the patient's room. I have updated the primary team, nursing and care management. TS 15min NO charge submitted Full consult note tomorrow Thank you for allowing us to participate in the ongoing care of this patient. Please page with any additional concerns. Beth Prescott DNP Director, Palliative Medicine
[2024-08-29] MEDS: DAPTOmycin 700 MG in SYRINGE 0 ML IV SCH (13:39)
--- NOTE | 2024-08-29 14:34 | Hospitalist Progress Note ---
Date of Service August 29, 2024 Assessment & Plan (1) Cardiac arrest: (2) Encephalopathy chronic: (3) Cellulitis of left lower extremity: (4) JESUS (acute kidney injury): (5) Cellulitis of right lower extremity: (6) Diabetic foot ulcer: Plan 63-yo M w/ type 2 diabetes, diabetic ulcer of right midfoot, dyslipidemia, hypophosphatemia, hypertension, history of C. difficile colitis, oral thrush, cellulitis of right leg, abscess of right foot, absent seizures, history of lung cancer, was sent in by [facility] rehab because of confusion and fevers. Pt with extended hospitalization course initially being treated for sepsis in the setting of lower extremity cellulitis and a diabetic foot ulcer and acute metabolic encephalopathy. He also had a severe JESUS on admission with Cr of 4.54 on admission for which Nephrology was consulted. They also managed his hypernatremia and hypocalcemia that subsequently developed as well. On 08/21/24, a code blue was called after pt became bradycardic and tachypneic. He required CPR and subsequent intubation and was transferred to the ICU. He was extubated on 08/27/24 with the [facility] noting that his prognosis was poor. In particular it was noted "...At this point time I would favor discontinuation of sedation and liberation from mechanical ventilator. If the patient is unable to maintain respirations or protect airway, consideration for transition to comfort care measures might be appropriate. This will be discussed with the family in detail. Palliative care consultation may be appropriate as well..." After discussion with the family on 08/29/24, a palliative care consult was pl aced for further recommendations. Family meeting planned for 08/30/24. He was previously treated for the following: Sepsis Bilateral lower extremity cellulitis Right foot diabetic ulcer Recently at [facility] was placed on IV Vanco for 6 weeks until September 17 to treat his osteomyelitis though MRI was negative and abscess was I&D by podiatry at [facility] Right Foot X ray: No definite radiographic evidence of osteomyelitis as described. Venous Doppler:No evidence of deep venous thrombus within the bilateral lower extremities. Arterial Doppler:Negative right lower extremity arterial evaluation. No occlusion or significant hemodynamic stenosis with multiphasic waveforms throughout. CT ABD:No bowel obstruction. Severe hepatic steatosis. Hepatomegaly. Anasarca. Small amount of ascites within the pelvis. Blood cultures negative to date Urine culture: Heather glabrata Received IV fluids Infectious Disease was consulted for antibiotic treatment, he has been receiving IV antibiotics since admission. -currently on Daptomycin Podiatry was also consulted: no foot MRI given current Rx Continued local wound care Acute metabolic encephalopathy Likely due to above infection/meds DD: Meningitis, encephalitis Suspected urinary tract infection--Less likely Head CT:No acute findings in the head/brain. Urine culture: unremarkable MRI Brain:No evidence of acute or subacute infarct. Reorient frequently to minimize delirium Repeat CT head showed no acute process Normal ammonia level Drug screen negative VBG showed no hypercarbia TSH elevated, normal free T4 Thiamine B1 level pending EEG noting "This is an abnormal routine EEG in a patient w altered mental state due to 1. Generalized background slowing suggestive of non specific encephalopathy, 2. Triphasic waves which are non specific but commonly seen in metabolic encephalopathies." Lamictal levels 6.6 Could not get lumbar puncture initially due to elevated INR/patient agitated Valproic acid held due to rising LFTs. Neurology aware Monitored ammonia levels, received a dose of lactulose on 08/20/2024 Appreciate neurology input. Poor Nutritional Status Was on tube feeds pt currently unable to swallow, altered, sometimes unarousable NPO, speech consult Per family would not want PEG tube palliative care consult as above Acute kidney injury likely ATN/toxic secondary to infection, vancomycin/AIN Cr: 4.4, downtrended CT ABd/pelvis noted "Mild nonspecific perinephric stranding. No hydronephrosis. Simple 2 cm left renal cyst. No follow-up of this simple cyst is necessary." Avoid nephrotoxic agents as able Monitor renal function, urinary output Bladder scan as needed Metformin, Jardiance, lisinopril on hold Avoid NSAIDs Monitor for volume status Received IV fluids Appreciate nephrology input Nephrology following closely Hypercalcemia --> now hypocalcemia (after hypercalcemia treatment) Hypernatremia Likely due to dehydration Low PTH, vitamin D levels PTH related peptide pending IV fluids as recommended by nephrology Monitor electrolytes closely Also on free water flushes through NG tube Started on calcitonin, Zometa Monitor calcium levels Transaminitis Likely due to sepsis, fatty liver CT ABD/pelvis noting "Hepatic steatosis. Hepatomegaly. Minimal free fluid around the liver and in the pelvis." Hepatitis panel negative Gall Bladder USD: Trace ascites. Normal sonographic appearance of the gallbladder. Large fatty liver. Elevated INR Monitor LFTs Hold Lipitor for now Valproate held due to worsening LFTs GI was consulted, appreciate recs Supratherapeutic INR Elevated INR--received vitamin K INR currently 1.4 Anemia Iron deficiency anemia Anemia of chronic disease No obvious signs of bleeding Vit B12, folate levels reviewed Monitor CBC Started on iron supplements Hypertension Hold lisinopril held atenolol currently on iv metoprolol 2.5 mg q6hrs DM II Hold home medications Adjust insulin per protocol to minimize hypoglycemic episodes Monitor blood glucose levels Hyperlipidemia Hold statin due to elevated LFTs History of seizures On Lamictal Monitor Remote history of lung cancer Treated with chemo as per records Diet: currently NPO CODE STATUS: DNR/DNI DVT Px: Heparin SQ Dispo: currently awaiting palliative recs Admission and Anticipated Discharge Date Admission Date: August 14, 2024 Subjective pt was seen in the ICU in the AM in rm 107 Was not on oxygen at the time, abdominal breathing Discussion with family contact listed in the chart, daughter in law who is a nurse She states that the family has not made a decision as to the goals of care for the pt. She notes that her and his brother are the POA and they would like a palliative care consult to further define. She requested that her Thomas and his brother Jj be contacted. Review of Systems Review of Systems: All systems reviewed & are unremarkable except as noted in Subjective Physical Exam Physical Exam: General: mild distress on exam Neuro: unarousable, stirs to sternal rub but does not open his eyes HEENT: NC/AT CV: RRR Resp: increased effort of breathing at the time of exam Abdomen:Soft Extremities: edema in lower extremities bilaterally. Results & Data Results & Data Vital Signs (Past 12 Hours) Vital Signs Temp Pulse Pulse Resp BP BP Pulse Ox 08/29/24 11:48 120 H 151/99 H 08/29/24 11:33 36.9 C 08/29/24 10:40 119 H 08/29/24 10:39 124 H 42 H 146/82 H 99 08/29/24 09:00 08/29/24 07:00 08/29/24 07:00 36.4 C L 117 H 20 149/104 H 98 08/29/24 05:58 117 H 168/109 H 08/29/24 05:15 119 H 168/109 H O2 Del Method 08/29/24 11:48 08/29/24 11:33 08/29/24 10:40 08/29/24 10:39 08/29/24 09:00 Room Air 08/29/24 07:00 Room Air 08/29/24 07:00 Room Air 08/29/24 05:58 08/29/24 05:15 Diagnostic Findings Chest X-Ray 08/14/24 18:34 Chest radiograph, one view History: Chest pain Comparison: None Findings: Single AP view of the chest performed. No focal consolidation or pleural effusion. No pneumothorax. Right upper extremity PICC tip is at the superior atrial caval junction. Elevated right hemidiaphragm. The cardiomediastinal silhouette is within normal limits. Normal pulmonary vascularity. No evidence for lymphadenopathy. No visualized bony or soft tissue abnormality. Impression: Right upper extremity PICC as above. Otherwise no acute process. Electronically signed by Quintin Kapadia 08-14-2024 7:07 PM Abdomen/Pelvis CT 08/14/24 22:17 Exam(s): CT ABDOMEN + PELVIS Without Contrast EXAM: CT Abdomen and Pelvis Without Intravenous Contrast CLINICAL HISTORY: Reason for exam: jesus. TECHNIQUE: Axial computed tomography images of the abdomen and pelvis without intravenous contrast. CTDI is 37.61 mGy and DLP is 1457.61 mGy-cm. Automated exposure control was utilized for the study. A dose lowering technique was utilized adhering to the principles of ALARA. COMPARISON: No relevant prior studies available. FINDINGS: Lung bases: Right lower lobe atelectasis or consolidation. Mild left basilar atelectasis. Trace right pleural effusion. Mediastinum: Small hiatal hernia. ABDOMEN: Liver: Marked hypoattenuation of the liver. Hepatomegaly, 25 cm craniocaudal. Gallbladder and bile ducts: Distended gallbladder. No obvious wall thickening or calcified stones. No ductal dilation. Pancreas: Unremarkable. No ductal dilation. Spleen: Unremarkable. No splenomegaly. Adrenals: Unremarkable. No mass. Kidneys and ureters: Mild nonspecific perinephric stranding. No hydronephrosis. Simple 2 cm left renal cyst. No follow-up of this simple cyst is necessary. Stomach and bowel: Fluid level in the rectum. Mild sigmoid diverticulosis. No obstruction. No mucosal thickening. PELVIS: Appendix: No findings to suggest acute appendicitis. Bladder: Sarmiento catheter in decompressed urinary bladder. No stones. Reproductive: Unremarkable as visualized. ABDOMEN and PELVIS: Intraperitoneal space: Minimal free fluid around the liver and in the pelvis. No free air. Bones/joints: Degenerative changes of the spine. No acute fracture. No dislocation. Soft tissues: Small bilateral inguinal hernias containing fat. Mild body wall edema, mostly in the right flank region. Vasculature: Unremarkable. No abdominal aortic aneurysm. Lymph nodes: Unremarkable. No enlarged lymph nodes. IMPRESSION: 1. Right lower lobe atelectasis or consolidation. Mild left basilar atelectasis. Trace right pleural effusion. 2. Hepatic steatosis. Hepatomegaly. 3. Minimal free fluid around the liver and in the pelvis. 4. Fluid level in the rectum. May reflect diarrhea. 5. Mild sigmoid diverticulosis. Electronically signed by: Debbie Benavides M.D. 08/15/24 01:[address] 08/14/24 22:17 Exam(s): CT HEAD Without Contrast EXAM: CT Head Without Intravenous Contrast CLINICAL HISTORY: Reason for exam: AMS. TECHNIQUE: Axial computed tomography images of the head/brain without intravenous contrast. CTDI is 53.87 mGy and DLP is 938.3 mGy-cm. Automated exposure control was utilized for the study. A dose lowering technique was utilized adhering to the principles of ALARA. COMPARISON: No relevant prior studies available. FINDINGS: Artifacts: Some motion artifact. Brain: Mild volume loss with prominent ventricles and sulci. No hemorrhage. No significant white matter disease. Ventricles: See above. Bones/joints: Unremarkable. No acute fracture. Soft tissues: Unremarkable. Sinuses: Unremarkable as visualized. No acute sinusitis. Mastoid air cells: Unremarkable as visualized. No mastoid effusion. IMPRESSION: No acute findings in the head/brain. Electronically signed by: Debbie Benavides M.D. 08/15/24 00:23 AM Venous Doppler Study 08/15/24 00:00 BILATERAL LOWER EXTREMITY VENOUS DOPPLER CLINICAL HISTORY: b/l lower ext erythema. dvt? COMPARISON STUDY: No previous studies for comparison. TECHNIQUE: Sonography of the deep venous system of the bilateral lower extremities was performed. Compression and augmentation were evaluated. FINDINGS: The bilateral common femoral, superficial femoral and popliteal veins were compressible. Augmentation was normal. Flow was shown within the deep calf vessels. IMPRESSION: No evidence of deep venous thrombus within the bilateral lower extremities. ACT 112: Negative or not required by law. Electronically signed by: Dewey Jorge M.D. 08/15/2024 9:04 AM Foot X-Ray 08/15/24 10:07 XR foot RT min 3V routine CLINICAL HISTORY: Osteomyelitis right calcaneus COMPARISON: None FINDINGS: 3 views of the right foot demonstrate a prior great toe ray amputation at the level of the distal first metatarsal. There is exuberant callus surrounding a second metatarsal midshaft fracture. The lateral view suggests a plantar soft tissue ulcer. There is also some soft tissue prominence over the heel. The calcaneus is intact with no radiographic evidence of calcaneal osteomyelitis. IMPRESSION: No definite radiographic evidence of osteomyelitis as described. ACT 112: Negative or not required by law. Electronically signed by: Deanna Rodríguez M.D. 08/15/2024 10:49 AM Duplex Scan Lower Extremity Artery 08/15/24 16:24 Exam(s): US ARTERIAL RIGHT LOWER EXTREMITY EXAM: US Duplex Right Lower Extremity Arteries CLINICAL HISTORY: Slow wound healing diabetic ulcer right foot. TECHNIQUE: Real-time duplex ultrasound scan of the right lower extremity arteries integrating B-mode two-dimensional vascular structure, Doppler spectral analysis and color flow Doppler imaging. COMPARISON: No relevant prior studies available. FINDINGS: Right common femoral artery: Multiphasic waveforms. No significantly elevated duplex velocities. The peak systolic velocity is 103 cm/s. Right superficial femoral artery: Multiphasic waveforms. No significantly elevated duplex velocities. The peak systolic velocities ranging between 123 cm/s proximally, 113 cm/s at the mid segment and 107 cm/s distally. Right popliteal artery: Multiphasic waveforms. No significantly elevated duplex velocities. The peak systolic velocities between 99 and 93 cm/s. Right calf/foot arteries: Right trifurcation: The right posterior tibial artery is patent with multiphasic waveforms and peak systolic velocities between 86, 102 and 110 cm/s. The peroneal artery was interrogated with biphasic to multiphasic waveforms and peak systolic velocities between 90 and 74 cm/s. The anterior tibial artery is patent with multiphasic waveforms and peak systolic velocities between 72 and 103 cm/s. The dorsalis pedis artery demonstrates multiphasic waveforms. Other arteries: Right profunda femoral artery: Biphasic waveforms. No significantly elevated duplex velocities. The peak systolic velocity is 112 cm/s. Soft tissues: Unremarkable. IMPRESSION: Negative right lower extremity arterial evaluation. No occlusion or significant hemodynamic stenosis with multiphasic waveforms throughout. Electronically signed by: Donald Head MD 08/15/24 21:45 PM Brain MRI 08/16/24 10:21 Exam(s): MRI HEAD Without Contrast EXAM: MR Head Without Intravenous Contrast CLINICAL HISTORY: Altered mental status. TECHNIQUE: Magnetic resonance images of the head/brain without intravenous contrast in multiple planes. COMPARISON: CT head without contrast performed 08/14/2024 FINDINGS: Limitations: There is motion artifact, which degrades image quality on multiple sequences. Brain: Diffusion-weighted imaging is negative for acute or subacute infarct. No definite intracranial hemorrhage. No significant mass- effect. No cortical infarct. Ventricles: Unremarkable. No ventriculomegaly. Bones/joints: Unremarkable. No acute fracture. Sinuses: Unremarkable as visualized. No acute sinusitis. Mastoid air cells: Unremarkable as visualized. No mastoid effusion. Orbits: Unremarkable as visualized. IMPRESSION: No evidence of acute or subacute infarct. Electronically signed by: Donald Head MD 08/16/24 23:[address] 08/17/24 13:23 CT head/brain wo con CLINICAL HISTORY: Altered mental status. TECHNIQUE: Multiple axial CT images of the head were obtained without contrast. Sagittal and coronal reconstructions were done. A dose lowering technique was utilized adhering to the principles of ALARA. CT DOSE: 2199.31 mGy.cm COMPARISON: 08/14/2024 FINDINGS: Some motion degradation is present. The been no significant interval change since the prior examination. There is no intra-axial or extra-axial fluid collection, hemorrhage, or mass. There is no midline shift. The ventricles and sulci are age-appropriate. The bone windows are grossly negative. IMPRESSION: Stable exam; no acute intracranial process identified. ACT 112: Negative or not required by law. The above report was generated using voice recognition software. It may contain grammatical, syntax or spelling errors. Electronically signed by: Deanna Rodríguez M.D. 08/17/2024 3:22 PM Chest X-Ray 08/17/24 13:50 XR chest 1V portable CLINICAL HISTORY: Hypoxia COMPARISON STUDY: 08/14/2024 FINDINGS: The study is compromised by respiratory motion. There is a right-sided PICC line with the tip not visible. There is continued elevation of the right hemidiaphragm with adjacent discoid atelectasis. The left lung is grossly clear. Mild cardiomegaly and pulmonary vascular congestion are persistent. IMPRESSION: Stable exam; no acute process identified. ACT 112: Negative or not required by law. Electronically signed by: Deanna Rodríguez M.D. 08/17/2024 3:10 PM Abdomen/Pelvis CT 08/17/24 13:57 CT OF THE ABDOMEN AND PELVIS WITHOUT CONTRAST CLINICAL HISTORY: Abdominal pain. COMPARISON STUDY: CT of the abdomen and pelvis August 14, 2024. TECHNIQUE: Axial images of the abdomen and pelvis were obtained without IV contrast. Images were reviewed in the axial, sagittal, and coronal planes. Automated exposure control was utilized for the study. A dose lowering te chnique was utilized adhering to the principles of ALARA. FINDINGS: Small right and trace left pleural effusions are present. Subpleural opacities favor atelectasis. This exam is compromised given motion artifact and lack of IV contrast. There is severe hepatic steatosis. Hepatomegaly is noted. There is no pneumatosis, free air or portal venous gas. Small amount of ascites within the pelvis is present. Unenhanced images of the spleen, adrenal glands, kidneys and pancreas are unremarkable with exception of a suspected left lower pole renal cyst. There is no evidence for a bowel obstruction. A Sarmiento balloon within the bladder is present. Body wall edema suggesting anasarca. No fluid collections are identified. There are no urinary calculi. There is no hydronephrosis. There is no lymphadenopathy. No peripancreatic or pericholecystic infiltration is present. IMPRESSION: 1. Exam compromised given lack of IV contrast and motion artifact. 2. No bowel obstruction. 3. Severe hepatic steatosis. Hepatomegaly. 3. Anasarca. Small right and trace left pleural effusions. Small amount of ascites within the pelvis. ACT 112: Negative or not required by law. Electronically signed by: Dewey Jorge M.D. 08/17/2024 3:37 PM KUB X-Ray 08/18/24 11:40 EXAM: Radiograph of the Abdomen 1 View INDICATION: Nasogastric tube placement. TECHNIQUE: Frontal supine view of the abdomen/pelvis. Image obtained at 11:36 AM. COMPARISON: No relevant prior studies available. FINDINGS: Limitations: None. Lower thorax: Right diaphragmatic elevation/eventration with adjacent compressive atelectasis. Large cardiac shadow. Gastrointestinal tract: No aerated intestinal loops seen in the upper abdomen. Organs: Visualized organ shadows appear grossly normal. Bones/joints: No fracture, erosion or dislocation. Soft tissues: No abnormality noted. No radiopaque foreign body noted. Tubes, lines and devices: Nasogastric tube terminates in the gastric body. IMPRESSION: Nasogastric tube terminates in the gastric body. ACT 112: Negative or not required by law. Electronically signed by Snehal Chappell 08-18-2024 11:59 AM Chest X-Ray 08/19/24 04:44 EXAM: XR chest 1V portable CLINICAL HISTORY: Tachypnea. TECHNIQUE: An X-ray image of the chest is obtained in AP projection. COMPARISON: XR chest, 08/17/2024. XR KUB/Abdomen 08/18/2024. FINDINGS: NG tube noted in situ. The tip is seen below the hemidiaphragm. Unchanged. Right PICC is noted. The tip is seen in the cavoatrial junction. Pulmonary Parenchyma: Slight interval regression of previously noted bilateral mild pleural effusion/thickening. Small right basilar linear opacities. This could be due to atelectasis. Elevation of right hemidiaphragm. Heart and Mediastinum: Increased cardiothoracic ratio. This could be projectional. Perihilar vascular congestion. No mediastinal widening or masses. No hilar or mediastinal lymphadenopathy. Bony Thorax: Bony thorax appears intact without fractures or deformities. Soft Tissues: Soft tissues overlying the chest wall are unremarkable. IMPRESSION: 1. NG tube noted in situ. Unchanged. 2. Right PICC noted in situ. Unchanged. 3. Slight interval regression of previously noted bilateral mild pleural effusion/thickening. 4. Small right basilar opacities. This could be due to atelectasis. The possibility of evolving infection or inflammatory process cannot be excluded. Need clinical correlation. Unchanged. 5. Elevation of right hemidiaphragm. Unchanged. Electronically signed by Rajani Jenkins 08-19-2024 06:25 AM Gallbladder Ultrasound 08/19/24 09:14 EXAM: US Abdomen Limited Gallbladder INDICATION: Trace ascites. TECHNIQUE: Real-time ultrasound of the gallbladder with image documentation. COMPARISON: No relevant prior studies available. FINDINGS: Liver: Enlarged to 24 cm long. Markedly echogenic. Gallbladder: No gallstones, wall thickening or surrounding fluid. Common bile duct: No significant abnormality noted. No stones. No dilation. Pancreas: Obscured by gas. Free fluid: Trace ascites noted. IMPRESSION: 1. Trace ascites. 2. Normal sonographic appearance of the gallbladder. 3. Large fatty liver. ACT 112: Negative or not required by law. Electronically signed by Snehal Chappell 08-19-2024 10:24 AM Chest X-Ray 08/19/24 21:03 Exam(s): XR CXR 1 VIEW EXAM: XR Chest, 1 View CLINICAL HISTORY: sob. TECHNIQUE: Frontal view of the chest. COMPARISON: 0508 hrs. FINDINGS: Lungs: Stable asymmetric elevation of the right hemidiaphragm. Improved lung expansion. Similar to slightly improved subsegmental changes involving the right perihilar and infrahilar region. The left lung is now well aerated. The pulmonary vasculature appears slightly less prominent/crowded. Pleural space: Unremarkable. No pneumothorax. No large pleural effusion. Heart: The cardiac silhouette remains prominent. Mediastinum: The mediastinal contours are thought to be stable, accounting for obliquity, less prominent. Bones/joints: Unremarkable. No acute fracture. Tubes, lines and devices: Nasogastric tube tip cannot be seen but is below the diaphragm. A right arm PICC is identified with tip in the superior right atrium, stable. IMPRESSION: Stable asymmetric elevation of the right hemidiaphragm. Improved lung expansion. Similar to slightly improved subsegmental changes involving the right perihilar and infrahilar region. The left lung is now well aerated. The pulmonary vasculature appears slightly less prominent/crowded. No pneumothorax. Electronically signed by: Donald Head MD 08/19/24 23:[address] 08/19/24 22:11 Exam(s): CT HEAD Without Contrast EXAM: CT Head Without Intravenous Contrast CLINICAL HISTORY: ams, coagulopathy. TECHNIQUE: Axial computed tomography images of the head/brain without intravenous contrast. CTDI is 95.63 mGy and DLP is 1574.9 mGy-cm. Automated exposure control was utilized for the study. A dose lowering technique was utilized adhering to the principles of ALARA. COMPARISON: CT head without contrast 08/14/2024; to 2024 FINDINGS: Limitations: There is motion artifact, despite repeated imaging at times, which degrades image quality on multiple image slices. Brain: No definite intracranial hemorrhage; evaluation for subtle extra-axial pathology along the margins of the parenchyma is limited in regions of streak motion artifact. No significant mass effect identified. No significant white matter disease. Ventricles: No midline shift or significant effacement of the ventricles. Bones/joints: No definite skull fracture. Soft tissues: Unremarkable. Sinuses: Unremarkable as visualized. No acute sinusitis. Mastoid air cells: Unremarkable as visualized. No mastoid effusion. Tubes, lines and devices: A nasogastric tube is noted in the right nasopharynx. IMPRESSION: Accounting for limitations with motion artifact, no definite acute intracranial process identified. Electronically signed by: Donald Head MD 08/19/24 23:32 PM Chest X-Ray 08/20/24 03:20 EXAM: XR chest 1V portable CLINICAL HISTORY: cough, bile. TECHNIQUE: An X-ray image of the chest is obtained in AP projection. COMPARISON: 08/19/2024 FINDINGS: NG tube noted in situ. The tip is seen below the hemidiaphragm. Unchanged. Right PICC is noted. The tip is seen in the cavoatrial junction. Pulmonary Parenchyma: Slight stable appearance of bilateral mild pleural effusion/thickening. Small right basilar linear opacities. This could be due to atelectasis. Elevation of right hemidiaphragm. Heart and Mediastinum: Increased cardiothoracic ratio. This could be projectional. Perihilar vascular congestion. No mediastinal widening or masses. No hilar or mediastinal lymphadenopathy. Bony Thorax: Bony thorax appears intact without fractures or deformities. Soft Tissues: Soft tissues overlying the chest wall are unremarkable. IMPRESSION: 1. NG tube noted in situ. Unchanged. 2. Right PICC noted in situ. Unchanged. 3. Stable appearance of previously noted bilateral mild pleural effusion/thickening. 4. Small right basal opacities, unchanged, could be due to atelectasis. The possibility of evolving infection or inflammatory process cannot be excluded. Need clinical correlation. 5. Elevation of right hemidiaphragm. Unchanged. Electronically signed by Rajani Jenkins 08-20-2024 05:22 AM Chest X-Ray 08/20/24 21:08 Exam(s): XR CXR 1 VIEW EXAM: XR Chest, 1 View CLINICAL HISTORY: Reason for exam: sob. TECHNIQUE: Frontal view of the chest. COMPARISON: 08/20/2024 FINDINGS: Lungs: Volume loss in the right lung. No interstitial edema. Left lung is clear. Pleural space: No pleural effusion. No pneumothorax. Heart: Unremarkable. No cardiomegaly. Tubes, lines and devices: Esophagogastric tube terminates below the diaphragm. Right upper extremity PICC terminates within the right atrium. Upper abdomen: Elevated right hemidiaphragm. IMPRESSION: No significant interval change. Electronically signed by: Ken Goldstein MD 08/20/24 22:05 PM Chest X-Ray 08/21/24 07:39 EXAM: XR chest 1V portable CLINICAL HISTORY: check PICC line placement. TECHNIQUE: An X-ray image of the chest is obtained in AP projection. COMPARISON: Prior study dated 08/20/2024 FINDINGS: NG tube noted in situ. The tip is seen below the hemidiaphragm. Unchanged. Right PICC is noted. The tip is seen in the cavoatrial junction. Pulmonary Parenchyma: Small right basal linear opacities. This could be due to atelectasis. Elevation of right hemidiaphragm. Obscured both costophrenic angles Heart and Mediastinum: Increased cardiothoracic ratio. This could be projectional. Perihilar vascular congestion. No mediastinal widening or masses. No hilar or mediastinal lymphadenopathy. Bony Thorax: Bony thorax appears intact without fractures or deformities. Soft Tissues: Soft tissues overlying the chest wall are unremarkable. IMPRESSION: 1. NG tube noted in place. The tip is seen below the hemidiaphragm. Unchanged. 2. Right PICC is noted with tip is seen in the cavoatrial junction. (unchanged) 3. Small right basal linear opacities. This could be due to atelectasis. 4. Elevation of right hemidiaphragm (unchanged) 5. Perihilar vascular congestion. 6. No interval changes. Electronically signed by Rajani Jenkins 08-21-2024 08:59 AM Chest X-Ray 08/21/24 17:47 INDICATION: Intubation TECHNIQUE: Frontal radiograph of the chest. COMPARISON: Radiograph from earlier the same day FINDINGS/IMPRESSION: Right pleural effusion with atelectasis/airspace disease, slightly worsened from prior. No pneumothorax. Left lung is clear. No acute fracture. Endotracheal tube tip approximately 3.3 cm above the mauricio. Enteric tube extends below the diaphragm. Right-sided PICC line catheter tip in the superior vena cava. Electronically signed by Elvin Urias 08-21-2024 6:[address] 08/21/24 22:35 EXAM: CT chest diagnostic wo con CLINICAL HISTORY: Cardiac arrest, hypoxemia TECHNIQUE: Contiguous axial CT images of the chest were acquired without administration of intravenous contrast. Coronal and sagittal reconstructions were obtained. One of the following dose reduction techniques were utilized for this exam: Automated exposure control, adjustment of the mA and/or kV according to patient size, use of iterative reconstruction. COMPARISON: CR 08/21/2024 FINDINGS: Endotracheal tube is approximately 2.5 cm from mauricio. Nasogastric tube is appropriately placed. Lungs: Mild right sided pleural effusion with subpleural consolidation and collapse in right lower lobe. Minimal left sided pleural effusion. Few atelectatic bands in both lungs. Right hemidiaphragm is raised, possible eventration/palsy. Mediastinum: No mediastinal mass or abnormal lymphadenopathy. The heart size is within normal limits. Trachea and Main Bronchi: The trachea and main bronchi are patent without evidence of obstruction or abnormality. Chest Wall: The chest wall is unremarkable with no evidence of soft tissue or bony abnormalities. Bone: Degenerative changes in thoracic spine. Upper Abdomen: Hepatic steatosis noted. IMPRESSION: Endotracheal tube is approximately 2.5 cm from mauricio. Borderline low position. Nasogastric tube is appropriately placed. Mild right sided pleural effusion with subpleural consolidation and collapse in right lower lobe. Possibly related to cardiac arrest. Minimal left sided pleural effusion. Few atelectatic bands in both lungs. Right hemidiaphragm is raised, possible eventration/palsy. Electronically signed by Rajani Jenkins 08-22-2024 01:[address] 08/21/24 22:35 EXAM: CT head/brain wo con CLINICAL HISTORY: Cardiac arrest. Encephalopathy. TECHNIQUE: An axial non-contrast CT scan of the brain was performed from the skull base to the high parietal region. One of the following dose reduction techniques were utilized for this exam: Automated exposure control, adjustment of the mA and/or kV according to patient size, use of iterative reconstruction. COMPARISON: 08/19/2024 FINDINGS: There are tiny ill-defined ino-gm-[id number] areas noted in the subcortical and periventricular white matter bilaterally, suggestive of microvascular ischemic changes. The ventricular system, cortical sulci, and basal cisterns are prominent consistent with senile changes. The visualized brain parenchyma shows normal appearance. Santillan-white matter differentiation is maintained. No midline shifts or deformity. No intracerebral or extra axial hematoma. Normal CT appearance of the posterior fossa structures namely the cerebellar hemispheres, brainstem and cerebellar peduncles. The cerebello-pontine angles are clear. The osseous structures in the skull base are unremarkable. No definite calvarium fractures. The scanned paranasal sinuses are clear. Bilateral mastoid air cells appear unremarkable. Postsurgical atlas vertebra fixation. IMPRESSION: 1. No definite acute abnormality detected on plain CT head. Recommended MRI if clinically warranted 2. Chronic microvascular ischemic changes and senile cortical atrophy 3. No significant interval changes since previous study. Electronically signed by Rajani Jenkins 08-22-2024 01:36 AM Chest X-Ray 08/22/24 09:25 XR chest 1V portable CLINICAL HISTORY: s/p RIGHT IJ CVL COMPARISON STUDY: 08/21/2024 FINDINGS: Endotracheal tube tip is stable at the thoracic inlet. Nasogastric tube tip is off the film inferiorly. Interval right central catheter tip is at the cavoatrial junction. Stable right PICC. No pneumothorax. Heart size and pulmonary vasculature are normal. There is mild stranding at the right lung base, improved. IMPRESSION: 1. No pneumothorax. 2. Mild stranding right lung base, improved. ACT 112: Negative or not required by law. Electronically signed by: Morgan Medina M.D. 08/22/2024 9:46 AM Chest X-Ray 08/24/24 08:47 XR chest 1V portable CLINICAL HISTORY: f/u COMPARISON STUDY: 08/22/2024 through 08/14/2024 FINDINGS: Endotracheal tube tip is at the thoracic inlet. Nasogastric tube tip is off the field of view inferiorly. Right central catheter is stable. There is stable cardiomegaly without pulmonary vascular congestion. There is stable to increased prominent elevation of the right hemidiaphragm with grossly stable consolidation at the right lower lung. No pneumothorax. IMPRESSION: Stable to mildly increased prominent elevation of the right hemidiaphragm with grossly stable consolidation at the right lower lung. ACT 112: Negative or not required by law. Electronically signed by: Morgan Medina M.D. 08/24/2024 9:35 AM Liver Ultrasound 08/24/24 16:04 EXAM: US liver CLINICAL HISTORY: elevated lfts TECHNIQUE: An ultrasound examination of the limited abdomen was performed. Difficult portable examination as the patient was unable to move and intubated. COMPARISON: Ultrasound dated 08/19/[address] dated 08/18/2024. FINDINGS: Difficult portable examination as the patient was unable to move and intubated. The pancreas is seen prominent with a hypoechoic heterogeneous echo texture. The liver is enlarged in size, measuring 24.2 cm with increased parenchymal echogenicity. No definite focal lesion seen within the liver. The gallbladder is seen distended with normal wall thickness measuring 0.23 cm. Mild pericholecystic edema. No definite sludge or stones seen within the gallbladder. The common bile duct is not dilated, measuring 0.29-0.41 cm. The right kidney is seen measuring 13.8 cm with no definite hydronephrosis or calculi seen within. Mild perihepatic ascites is noted. IMPRESSION: 1. Prominent pancreas with heterogeneous hyperechoic echotexture. This could be due to inflammatory process. Need clinical correlation. 2. Mild pericholecystic edema. This could be due to reactionary due to ascites or adjacent inflammatory process. New finding. 3. Hepatic steatosis. Unchange. 4. Mild perihepatic ascites. Unchanged. 5. Otherwise, no significant interval changes. Electronically signed by Rajani Jenkins 08-25-2024 03:[address] 08/25/24 12:34 CT OF THE HEAD WITHOUT CONTRAST CLINICAL HISTORY: anoxic injury ? COMPARISON STUDY: Head CT August 22, 2024. CT DOSE: 1250.21 mGy.cm TECHNIQUE: Helical axial images of the head were obtained without IV contrast. Automated exposure control was utilized for the study. A dose lowering technique was utilized adhering to the principles of ALARA. FINDINGS: This exam is moderately compromised by motion artifact. No acute intracranial hemorrhage, midline shift or mass effect is present. Ventricular system is normal. Basal cisterns are patent. There are no extra-axial collections. Santillan-white differentiation is grossly maintained. There are no findings to suggest acute dural sinus thrombosis or acute territorial infarct. IMPRESSION: 1. No acute intracranial findings. 2. Exam moderately compromised by motion artifact. However, no CT evidence for anoxic injury. ACT 112: Negative or not required by law. Electronically signed by: Dewey Jorge M.D. 08/25/2024 1:30 PM Chest X-Ray 08/26/24 06:00 EXAM: XR chest 1V portable CLINICAL HISTORY: Eval tubes/lines/lung [place] while intubated TECHNIQUE: An X-ray image of the chest is obtained in AP projection. COMPARISON: 08/24/2024 FINDINGS: ETT with its tip 3.0 cm above the mauricio. NG tube noted in situ. The tip is seen below the hemidiaphragm. Right CVL is noted. The tip is seen in the cavoatrial junction. Pulmonary Parenchyma: Right hemidiaphragm is raised. Right CP angle is obliterated may favor pleural reaction. Numerous chest tubes are appreciated. Increased vascular markings are noted in bilateral perihilar regions may favor vascular congestion. Heart and Mediastinum: Cardiac size is enlarged. No mediastinal widening or masses. No hilar or mediastinal lymphadenopathy. Bony Thorax: Bony thorax appears intact without fractures or deformities. Soft Tissues: Soft tissues overlying the chest wall are unremarkable. IMPRESSION: 1. ETT with its tip 3.0 cm above the mauricio. 2. NG tube noted in situ. The tip is seen below the hemidiaphragm. 3. Right CVL is noted. The tip is seen in the cavoatrial junction. 4. Right hemidiaphragm is elevated. 5. Right CP angle is obliterated may favor pleural reaction. 6. No significant interval change. Electronically signed by Rajani Jenkins 08-26-2024 08:18 AM Brain MRI 08/26/24 09:36 Technique: Multiple T1 and T2-weighted magnetic resonance images were obtained of the brain without gadolinium contrast Comparison is made with a head CT dated 08/21/2024 Findings: There is no sign of acute or old infarction with normal-appearing diffusion weighted images. No definite focus of demyelination is seen. There is mild diffuse cerebral atrophy No definite mass lesion is seen on this noncontrast study. There is no intracranial hemorrhage or other fluid collection. No midline shift or other form of herniation is seen. There is no hydrocephalus. Normal flow-voids are seen within the arteries of the [id number]-[id number]-Ancsan. The orbits and paranasal sinuses appear normal. There is opacification of the mastoid air cells bilaterally Impression: 1. No sign of infarction or mass lesion 2. Bilateral mastoid air cell opacification, concerning for inflammatory mastoiditis Electronically signed by Rajan Major 08-26-2024 2:14 PM Chest X-Ray 08/27/24 06:00 EXAM: XR chest 1V portable CLINICAL HISTORY: eval tubes/lines/lung [place] while intubated TECHNIQUE: An X-ray image of the chest is obtained in 1 AP projection. COMPARISON: 08/26/2024 CR FINDINGS: ETT with its tip 3.4 cm above the mauricio. NG tube noted in situ. The tip is seen below the hemidiaphragm. Right CVL is noted. The tip is seen in the cavoatrial junction. Pulmonary Parenchyma: Right hemidiaphragm is raised with Right costophrenic angle is obliterated, may favor pleural effusion with underlying collapse. Numerous chest tubes are appreciated. Increased vascular markings are noted in bilateral perihilar regions, which may favor vascular congestion. Heart and Mediastinum: Cardiac size is enlarged. No mediastinal widening or masses. No hilar or mediastinal lymphadenopathy. Bony Thorax: Bony thorax appears intact without fractures or deformities. Soft Tissues: Soft tissues overlying the chest wall are unremarkable. IMPRESSION: 1. ETT with its tip 3.4 cm above the mauricio. 2. NG tube noted in situ. The tip is seen below the hemidiaphragm. 3. Right CVL is noted. The tip is seen in the cavoatrial junction. 4. Findings suggesting pleural effusion with underlying collapse. 5. No significant interval change. Electronically signed by Rajani Jenkins 08-27-2024 07:43 AM (6) Diabetic foot ulcer Diabetes mellitus type: type 2 Diabetic foot ulcer location: midfoot Laterality: right Non-pressure ulcer stage: with fat layer exposed Qualified Code(s): E11.621 - Type 2 diabetes mellitus with foot ulcer; L97.412 - Non- pressure chronic ulcer of right heel and midfoot with fat layer exposed
[2024-08-29] MEDS: MoRPHine SULFATE 2 MG/ML CARP IV PRN (22:15)
[2024-08-30 05:12] LABS: Basophils # (auto) 0.02 K/uL (0.00-0.20); Basophils % (auto) 0.2 %; Eosinophils # (auto) 0.61 K/uL (0.00-0.50); Eosinophils % (auto) 5.7 %; Hematocrit (blood only) 27.1 % (42.0-52.0); Immature Granulocytes % (auto) 1.9 %; Lymphocytes # (auto) 1.97 K/uL (1.20-3.40); Lymphocytes % (auto) 18.5 %; Mean Corpuscular Hemoglobin 29.1 pg (25.0-34.0); Mean Corpuscular Hgb Conc 29.5 g/dL (32.0-36.0); Mean Corpuscular Volume 98.5 fL (80.0-100.0); Mean Platelet Volume 9.4 fL (9.4-12.4); Monocytes # (auto) 0.87 K/uL (0.11-0.59); Monocytes % (auto) 8.2 %; Neutrophils # (auto) 6.95 K/uL (1.40-6.50); Neutrophils % (auto) 65.5 %; Nucleated RBC # (auto) 0.05 K/uL (0.00-0.12); Nucleated RBC % (auto) 0.5 %; Platelet Count 455 K/uL (130-400); RDW Coefficient of Variation 21.3 % (11.5-14.5); RDW Standard Deviation 74.2 fL (36.4-46.3); Red Blood Count 2.75 M/uL (4.70-6.10); White Blood Count 10.62 K/ul (4.8-10.8)
[2024-08-30 05:38] LABS: Albumin Globulin Ratio 0.6 (0.9-2); Albumin Level 2.2 gm/dl (3.4-5.0); BUN Creatinine Ratio 18.6 (10-20); Bilirubin,Total 4.6 mg/dl (0.2-1.0); Creatinine Clr Calc Pharmacy 41.5 ml/min; Globulin 3.7 gm/dl (2.5-4.0); Magnesium 1.8 mg/dl (1.7-2.4); Phosphorus 3.5 mg/dl (2.5-4.9); Potassium 3.6 mmol/L (3.5-5.1); Total Protein 5.9 gm/dl (6.0-8.3)
[2024-08-30 05:49] LABS: Anisocytosis Present; Polychromasia 1+
[2024-08-30] MEDS: DEXTROSE 5% 500 ML IV ONE (05:54)
[2024-08-30] MEDS ORDERED: SODIUM CHLORIDE 0.9% 10ML FLUSH IV ONE ×2 (06:43→06:45)
[2024-08-30] MEDS ORDERED: SODIUM BICARB 8.4% INJ 50 MEQ/50 ML SYR IV ONE (06:43)
[2024-08-30] MEDS ORDERED: ATROPINE SULFATE 0.1 MG/ML 10ML SYR IV ONE (06:44)
--- NOTE | 2024-08-30 10:45 | Hospitalist Progress Note ---
Date of Service August 30, 2024 Assessment & Plan (1) Cardiac arrest: (2) Encephalopathy chronic: (3) Cellulitis of left lower extremity: (4) JUANA (acute kidney injury): (5) Cellulitis of right lower extremity: (6) Diabetic foot ulcer: Plan 63-yo M w/ type 2 diabetes, diabetic ulcer of right midfoot, dyslipidemia, hypophosphatemia, hypertension, history of C. difficile colitis, oral thrush, cellulitis of right leg, abscess of right foot, absent seizures, history of lung cancer, was sent in by [facility] rehab because of confusion and fevers. Pt with extended hospitalization course initially being treated for sepsis in the setting of lower extremity cellulitis and a diabetic foot ulcer and acute metabolic encephalopathy. He also had a severe JUANA on admission with Cr of 4.54 on admission for which Nephrology was consulted. They also managed his hypernatremia and hypocalcemia that subsequently developed as well. On 08/21/24, a code blue was called after pt became bradycardic and tachypneic. He required CPR and subsequent intubation and was transferred to the ICU. He was extubated on 08/27/24 with the It Application Administrator noting that his prognosis was poor. In particular it was noted "...At this point time I would favor discontinuation of sedation and liberation from mechanical ventilator. If the patient is unable to maintain respirations or protect airway, consideration for transition to comfort care measures might be appropriate. This will be dis cussed with the family in detail. Palliative care consultation may be appropriate as well..." After discussion with the family on 08/29/24, a palliative care consult was placed for further recommendations. Family meeting planned for 08/30/24. Pt was transitioned to Comfort Measures Only on 08/30/24. He was previously treated for the following: Sepsis Bilateral lower extremity cellulitis Right foot diabetic ulcer Recently at [facility] was placed on IV Vanco for 6 weeks until September 17 to treat his osteomyelitis though MRI was negative and abscess was I&D by podiatry at [facility] Right Foot X ray: No definite radiographic evidence of osteomyelitis as described. Venous Doppler:No evidence of deep venous thrombus within the bilateral lower extremities. Arterial Doppler:Negative right lower extremity arterial evaluation. No occlusion or significant hemodynamic stenosis with multiphasic waveforms throughout. CT ABD:No bowel obstruction. Severe hepatic steatosis. Hepatomegaly. Anasarca. Small amount of ascites within the pelvis. Blood cultures negative to date Urine culture: Heather glabrata Received IV fluids Infectious Disease was consulted for antibiotic treatment, he has been receiving IV antibiotics since admission. -currently on Daptomycin Podiatry was also consulted: no foot MRI given current Rx Continued local wound care Acute metabolic encephalopathy Likely due to above infection/meds DD: Meningitis, encephalitis Suspected urinary tract infection--Less likely Head CT:No acute findings in the head/brain. Urine culture: unremarkable MRI Brain:No evidence of acute or subacute infarct. Reorient frequently to minimize delirium Repeat CT head showed no acute process Normal ammonia level Drug screen negative VBG showed no hypercarbia TSH elevated, normal free T4 Thiamine B1 level pending EEG noting "This is an abnormal routine EEG in a patient w altered mental state due to 1. Generalized background slowing suggestive of non specific encephalopathy, 2. Triphasic waves which are non specific but commonly seen in metabolic encephalopathies." Lamictal levels 6.6 Could not get lumbar puncture initially due to elevated INR/patient agitated Valproic acid held due to rising LFTs. Neurology aware Monitored ammonia levels, received a dose of lactulose on 08/20/2024 Appreciate neurology input. Poor Nutritional Status Was on tube feeds pt currently unable to swallow, altered, sometimes unarousable NPO, speech consult Per family would not want PEG tube palliative care consult as above Acute kidney injury likely ATN/toxic secondary to infection, vancomycin/AIN Cr: 4.4, downtrended CT ABd/pelvis noted "Mild nonspecific perinephric stranding. No hydronephrosis. Simple 2 cm left renal cyst. No follow-up of this simple cyst is necessary." Avoid nephrotoxic agents as able Monitor renal function, urinary output Bladder scan as needed Metformin, Jardiance, lisinopril on hold Avoid NSAIDs Monitor for volume status Received IV fluids Appreciate nephrology input Nephrology following closely Hypercalcemia --> now hypocalcemia (after hypercalcemia treatment) Hypernatremia Likely due to dehydration Low PTH, vitamin D levels PTH related peptide pending IV fluids as recommended by nephrology Monitor electrolytes closely Also on free water flushes through NG tube Started on calcitonin, Zometa Monitor calcium levels Transaminitis Likely due to sepsis, fatty liver CT ABD/pelvis noting "Hepatic steatosis. Hepatomegaly. Minimal free fluid around the liver and in the pelvis." Hepatitis panel negative Gall Bladder USD: Trace ascites. Normal sonographic appearance of the gallbladder. Large fatty liver. Elevated INR Monitor LFTs Hold Lipitor for now Valproate held due to worsening LFTs GI was consulted, appreciate recs Supratherapeutic INR Elevated INR--received vitamin K INR currently 1.4 Anemia Iron deficiency anemia Anemia of chronic disease No obvious signs of bleeding Vit B12, folate levels reviewed Monitor CBC Started on iron supplements Hypertension Hold lisinopril held atenolol currently on iv metoprolol 2.5 mg q6hrs DM II Hold home medications Adjust insulin per protocol to minimize hypoglycemic episodes Monitor blood glucose levels Hyperlipidemia Hold statin due to elevated LFTs History of seizures On Lamictal Monitor Remote history of lung cancer Treated with chemo as per records Diet: currently NPO CODE STATUS: DNR/DNI DVT Px: Heparin SQ Dispo: currently awaiting palliative recs Admission and Anticipated Discharge Date Admission Date: August 14, 2024 Subjective pt was seen laying in bed Nursing and wound care at bedside Opening his eyes today, responding to verbal stimuli Review of Systems Review of Systems: All systems reviewed & are unremarkable except as noted in Subjective Physical Exam Physical Exam: General: alert Neuro: non verbal HEENT: NC/AT Resp: increased effort of breathing at the time of exam Abdomen:Soft Extremities: edema in lower extremities bilaterally. Results & Data Results & Data Vital Signs (Past 12 Hours) Vital Signs Temp Pulse Pulse Pulse Resp BP BP 08/30/24 08:40 37.1 C 125 H 147/76 H 08/30/24 06:36 08/30/24 06:35 36.7 C 122 H 42 H 169/82 H 08/30/24 05:46 120 H 08/30/24 05:08 124 H 160/94 H 08/30/24 04:02 37.4 C 122 H 36 H 160/84 H 08/29/24 23:40 37.3 C 119 H 38 H 147/99 H 08/29/24 23:36 118 H 147/99 H 08/29/24 23:21 125 H 164/88 H 08/29/24 22:51 122 H Pulse Ox O2 Del Method 08/30/24 08:40 95 Room Air 08/30/24 06:36 Room Air 08/30/24 06:35 94 Room Air 08/30/24 05:46 08/30/24 05:08 08/30/24 04:02 97 Room Air 08/29/24 23:40 94 Room Air 08/29/24 23:36 08/29/24 23:21 08/29/24 22:51 (6) Diabetic foot ulcer Diabetes mellitus type: type 2 Diabetic foot ulcer location: midfoot Laterality: right Non-pressure ulcer stage: with fat layer exposed Qualified Code(s): E11.621 - Type 2 diabetes mellitus with foot ulcer; L97.412 - Non- pressure chronic ulcer of right heel and midfoot with fat layer exposed
--- NOTE | 2024-08-30 12:27 | Palliative Care Consultation ---
Date of Consultation August 30, 2024 Assessment & Plan (1) Dyspnea and respiratory abnormalities: (2) Altered mental status: (3) Weakness generalized: (4) Discussion about advance care planning held with family member: A 60 min face to face ACP was held with pt family: his mom, sons x2, dtr in law x1 and his sister We discussed all the clinical events to date and his PMH We spoke about current condition, concerns and ongoing issues We spoke about his prognosis We discussed PEG: discussed risks of PEG vs comfort feeds. Advised multiple organizations, including the [place] [employer] Palliative [employer] and the [place] [employer], have released statements endorsing the following approach to nutritional support in advanced dementia: Dont recommend percutaneous feeding tubes in patients with advanced dementia; instead, offer oral assisted feeding. he would not want this. He was not a fan of doctoring per family. He was very independent. We spoke about best case/worse case scenarios. 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 His level of impairment now suffers he will need ongoing care in a SNF. They all agree he would not want to live like that, did not want to be in a dependent manner and "just existing." After further discussion, family all agreed this was not a way that Tien would want to live. his sister and his sons together agreed he would never find QOL in this level of existence of any [facility] SNF. Tien;s has dementia and resides at [facility]. She is not able to make decisions for him Sons are SDM Jj is first SDM per family choice. After more discussion, family agreed for a plan of PACKAGING ASSOCIATE, with dc on hospice to a SNF in [facility]. We completed a POLST: DNR/DNI, PACKAGING ASSOCIATE,no Abtx, no DEBORA/IVF, assure comfort. No PEG desired. Family need a [facility] residential that is where the most of them live. Original POLST is with son Jj. Copies given to the other son and dtr in law. Paper copy in Chart and another copy sent to HIM for scanning into [employer] [place]. (5) Palliative care by specialist: Introduced Palliative Medicine and explained our role in patient's care. Patient and/or family were receptive to palliative services for goals of care discussions. Reviewed we are different from hospice, a home health nurse visiting service. Plan As above GRAPHICS EDITOR team notified to assist with comfort PO, allow permissive aspiration Comfort Care Discharge Summary & Plan of Care For Long Term/SNF/[facility] Comfort plan of care parameters: 1. Patient/Family want hospice added to their care. 2. NO rehab/PT/OT 3. Strictly End of Life care only 4. NO escalation of care: do not increase oxygen, escalate therapies, etc. The focus is on comfort through end of life, assure this is accomplished with aggressive symptom management (i.e. relief of dyspnea, pain, etc.) 5. NO return to hospital 6. NO labs, imaging, surgery 7. Oral intake as desired for comfort and pleasure: NO dietary restriction 8. If difficulty urinating/commode/bedpan, ok to place Sarmiento catheter for comfort/hygiene/skin protection AND/OR Continue Sarmiento catheter for comfort/hygiene/skin protection 9. NO: calorie counts, artificial nutrition, feeding tubes or IV fluids Medications to continue are noted on discharge summary. Provider to contact if any questions about comfort plan of care: Hospice Ramp Service Employee or designee Thank you for allowing us to participate in the ongoing care of this patient. Please page with any additional concerns. Beth Prescott DNP Director, Palliative Medicine History of Present Illness Reason for Consultation: goc Attending Physician: Otilia Major MD History of Present Illness Jayla Islas is a 63yo male admitted 08/14/24 from [facility] with fevers/AMS/sepsis Palliative Medicine was consulted 08/29/24 to assist with GOC, a meeting was scheduled for today with family based on their availability PMH: DM, diabetic ulcer of right midfoot, dyslipidemia, hypophosphatemia, hypertension, history of C. difficile colitis, oral thrush, cellulitis of right leg, abscess of right foot, absent seizures, history of lung cancer Tien's had a complicated and lengthy admission thus far: he was treated for sepsis d/t LE cellulitis and a diabetic foot ulcer with +acute metabolic encephalopathy. He has severe JUANA on admission with Cr of 4.54/followed by nephro 08/21/24: +Code Blue--> bradycardic and tachypneic, s/p CPR, +MV, ICU. Extubated 08/27/24, per CCM, prognosis poor. His dtr in law is an LEAD MECHANICAL ENGINEER for [employer], she requested a Palliative Robert consult 08/29/24 Present at family meeting visit: Sons x2, dtr in law x1 (LEAD MECHANICAL ENGINEER/Silviaer), sister x1, and patient's Mom Tien is in bed, confused and somewhat restless earlier this AM, restless, unable to follow commands Sons and sister state he is "tracking their voice" and seems to answer yes/no at times Allergies Allergy/AdvReac Type Severity Reaction Status Date / Time cefazolin Allergy Intermediate Rash Verified 08/14/24 23:14 Home Medications Medication Instructions Recorded Confirmed Type Lactobacillus acidophilus 10 10,000 mmu cells PO DAILY 08/14/24 08/14/24 History billion cell capsule (Probiotic) aspirin 81 mg tablet,delayed 81 mg PO DAILY 08/14/24 08/14/24 History release atenolol 100 mg tablet 100 mg PO DAILY 08/14/24 08/14/24 History atorvastatin 20 mg tablet 20 mg PO DAILY 08/14/24 08/14/24 History bisacodyl 10 mg rectal suppository 10 mg NJ DAILY PRN Constipation 08/14/24 08/14/24 History (Dulcolax (bisacodyl)) ceftriaxone 1 gram intravenous 1 g IV DAILY 08/14/24 08/14/24 History solution cyanocobalamin (vitamin B-12) 500 500 mcg PO DAILY 08/14/24 08/14/24 History mcg tablet empagliflozin 25 mg tablet 25 mg PO DAILY 08/14/24 08/14/24 History gabapentin 300 mg capsule 600 mg PO HS 08/14/24 08/14/24 History hydroxyzine HCl 10 mg tablet 10 mg PO HS PRN Anxiety 08/14/24 08/14/24 History lamotrigine 100 mg tablet 100 mg PO BID 08/14/24 08/14/24 History (Lamictal) lisinopril 20 mg tablet 20 mg PO DAILY 08/14/24 08/14/24 History metformin 500 mg tablet 500 mg PO BID 08/14/24 08/14/24 History multivitamin with minerals 1 tab PO DAILY 08/14/24 08/14/24 History ondansetron 4 mg disintegrating 4 mg PO Q8H PRN Nausea And Vomiting 08/14/24 08/14/24 History tablet oxycodone 5 mg tablet 5 mg PO Q6H PRN Severe Pain (Scale 08/14/24 08/14/24 History Score 7-10) vancomycin 1,000 mg intravenous 1 g IV UD 08/14/24 08/14/24 History injection Patient History Social History Smoking Status: Never smoker Hx Alcohol Use: No Hx Substance Use: No Preferred Language: Citizen Of [place] Communication Ability: Impaired Director Of Corporate Real Estate Required: No Beliefs That Will Affect Care: Spiritual Current Living Situation: Personal Care Facility Current Living Situation Comment: Lives at [facility] currently Other Information That Helps Us Care for You: No Feels Safe at Home: Yes Safety Concerns: Feels Safe At This Time Assistive Devices: None Review of Systems Review of Systems: Unobtainable due to cognitive status Physical Exam Physical Exam: chronically ill appearing bitemp wasting mod distress opens eyes to verbal but unable to follow commands for me resp effort mild increased, mild use of accessory muscles, scatt rhochi bilat no wheezing tachy s1s2 no gross JVD abd soft,, BS+ Gen weakness Pale, warm to touch, mild diaphoresis Results & Data Vital Signs (Past 12 Hours) Vital Signs Temp Pulse Pulse Pulse Resp BP BP 08/30/24 11:46 38.0 C H 126 H 40 H 176/70 H 08/30/24 08:40 37.1 C 125 H 147/76 H 08/30/24 06:36 08/30/24 06:35 36.7 C 122 H 42 H 169/82 H 08/30/24 05:46 120 H 08/30/24 05:08 124 H 160/94 H 08/30/24 04:02 37.4 C 122 H 36 H 160/84 H Pulse Ox O2 Del Method 08/30/24 11:46 93 Room Air 08/30/24 08:40 95 Room Air 08/30/24 06:36 Room Air 08/30/24 06:35 94 Room Air 08/30/24 05:46 08/30/24 05:08 08/30/24 04:02 97 Room Air Laboratory Results 08/30/24 08/30/24 08/29/24 Range/Units 12:10 04:43 23:14 WBC 10.62 (4.8-10.8) K/ul RBC 2.75 L (4.70-6.10) M/uL Hgb 8.0 L (14.0-18.0) g/dl Hct 27.1 L (42.0-52.0) % MCV 98.5 (80.0-100.0) fL MCH 29.1 (25.0-34.0) pg MCHC 29.5 L (32.0-36.0) g/dL RDW Std Deviation 74.2 H (36.4-46.3) fL RDW Coeff of Eladio 21.3 H (11.5-14.5) % Plt Count 455 H (130-400) K/uL MPV 9.4 (9.4-12.4) fL Immature Gran % (Auto) 1.9 % Neut % (Auto) 65.5 % Lymph % (Auto) 18.5 % Powell % (Auto) 8.2 % Eos % (Auto) 5.7 % Baso % (Auto) 0.2 % Neut # (Auto) 6.95 H (1.40-6.50) K/uL Lymph # (Auto) 1.97 (1.20-3.40) K/uL Powell # (Auto) 0.87 H (0.11-0.59) K/uL Eos # (Auto) 0.61 H (0.00-0.50) K/uL Baso # (Auto) 0.02 (0.00-0.20) K/uL Immature Gran # (Auto) 0.20 (0.01-0.20) K/uL Absolute Nucleated RBC 0.05 (0.00-0.12) K/uL Nucleated RBC % (auto) 0.5 % Toxic Vacuolation Polychromasia 1+ Anisocytosis Present Target Cells Tear Drop Cells Sodium 159 H* 162 H* D (136-145) mmol/L Potassium 3.6 (3.5-5.1) mmol/L Chloride 132 H (98-107) mmol/L Carbon Dioxide 18 L (21-32) mmol/L Anion Gap 12 H (3-11) BUN 37 H (6-23) mg/dl Creatinine 1.99 H (0.6-1.4) mg/dl Est Cr Clr Drug Dosing 41.5 ml/min eGFR 36.57 BUN/Creatinine Ratio 18.6 (10-20) Glucose 74 (70-99(Fasting)) mg/dl POC Glucose 87 (70-99) mg/dl POC Glucose (other) (70-99) mg/dl Calcium 6.0 L (8.6-10.3) mg/dl Ionized Calcium 0.83 L (1.12-1.32) mmol/L Phosphorus 3.5 (2.5-4.9) mg/dl Magnesium 1.8 (1.7-2.4) mg/dl Total Bilirubin 4.6 H (0.2-1.0) mg/dl Direct Bilirubin (0-0.2) mg/dl AST 175 H (13-39) U/L ALT 41 (7-52) U/L Alkaline Phosphatase 232 H (34-104) U/L Ammonia (18-72) umol/L Total Creatine Kinase (30-223) U/L Total Protein 5.9 L (6.0-8.3) gm/dl Albumin 2.2 L (3.4-5.0) gm/dl Globulin 3.7 (2.5-4.0) gm/dl Albumin/Globulin Ratio 0.6 L (0.9-2) Vitamin B1 (8-30) nmol/L PTH Intact (12.0-88.0) pg/ml PTH Related Protein (11-20) pg/mL Stl C. diff Tox B Gene (Neg) Misc Micro Test 08/29/24 08/29/24 08/29/24 Range/Units 17:44 11:29 04:47 WBC (4.8-10.8) K/ul RBC (4.70-6.10) M/uL Hgb (14.0-18.0) g/dl Hct (42.0-52.0) % MCV (80.0-100.0) fL MCH (25.0-34.0) pg MCHC (32.0-36.0) g/dL RDW Std Deviation (36.4-46.3) fL RDW Coeff of Eladio (11.5-14.5) % Plt Count (130-400) K/uL MPV (9.4-12.4) fL Immature Gran % (Auto) % Neut % (Auto) % Lymph % (Auto) % Powell % (Auto) % Eos % (Auto) % Baso % (Auto) % Neut # (Auto) (1.40-6.50) K/uL Lymph # (Auto) (1.20-3.40) K/uL Powell # (Auto) (0.11-0.59) K/uL Eos # (Auto) (0.00-0.50) K/uL Baso # (Auto) (0.00-0.20) K/uL Immature Gran # (Auto) (0.01-0.20) K/uL Absolute Nucleated RBC (0.00-0.12) K/uL Nucleated RBC % (auto) % Toxic Vacuolation Polychromasia Anisocytosis Target Cells Tear Drop Cells Sodium (136-145) mmol/L Potassium (3.5-5.1) mmol/L Chloride (98-107) mmol/L Carbon Dioxide (21-32) mmol/L Anion Gap (3-11) BUN (6-23) mg/dl Creatinine (0.6-1.4) mg/dl Est Cr Clr Drug Dosing ml/min eGFR BUN/Creatinine Ratio (10-20) Glucose (70-99(Fasting)) mg/dl POC Glucose 100 H 94 105 H (70-99) mg/dl POC Glucose (other) (70-99) mg/dl Calcium (8.6-10.3) mg/dl Ionized Calcium (1.12-1.32) mmol/L Phosphorus (2.5-4.9) mg/dl Magnesium (1.7-2.4) mg/dl Total Bilirubin (0.2-1.0) mg/dl Direct Bilirubin (0-0.2) mg/dl AST (13-39) U/L ALT (7-52) U/L Alkaline Phosphatase (34-104) U/L Ammonia (18-72) umol/L Total Creatine Kinase (30-223) U/L Total Protein (6.0-8.3) gm/dl Albumin (3.4-5.0) gm/dl Globulin (2.5-4.0) gm/dl Albumin/Globulin Ratio (0.9-2) Vitamin B1 (8-30) nmol/L PTH Intact (12.0-88.0) pg/ml PTH Related Protein (11-20) pg/mL Stl C. diff Tox B Gene (Neg) Misc Micro Test 08/29/24 08/28/24 08/28/24 Range/Units 04:43 23:57 17:48 WBC 11.45 H (4.8-10.8) K/ul RBC 3.03 L (4.70-6.10) M/uL Hgb 8.9 L (14.0-18.0) g/dl Hct 29.5 L (42.0-52.0) % MCV 97.4 (80.0-100.0) fL MCH 29.4 (25.0-34.0) pg MCHC 30.2 L (32.0-36.0) g/dL RDW Std Deviation 74.2 H (36.4-46.3) fL RDW Coeff of Eladio 21.2 H (11.5-14.5) % Plt Count 410 H (130-400) K/uL MPV 9.4 (9.4-12.4) fL Immature Gran % (Auto) 2.9 % Neut % (Auto) 68.1 % Lymph % (Auto) 17.1 % Powell % (Auto) 7.0 % Eos % (Auto) 4.6 % Baso % (Auto) 0.3 % Neut # (Auto) 7.80 H (1.40-6.50) K/uL Lymph # (Auto) 1.96 (1.20-3.40) K/uL Powell # (Auto) 0.80 H (0.11-0.59) K/uL Eos # (Auto) 0.53 H (0.00-0.50) K/uL Baso # (Auto) 0.03 (0.00-0.20) K/uL Immature Gran # (Auto) 0.33 H (0.01-0.20) K/uL Absolute Nucleated RBC 0.05 (0.00-0.12) K/uL Nucleated RBC % (auto) 0.4 % Toxic Vacuolation Polychromasia 1+ Anisocytosis Present Target Cells Tear Drop Cells Sodium 153 H (136-145) mmol/L Potassium 3.4 L (3.5-5.1) mmol/L Chloride 125 H (98-107) mmol/L Carbon Dioxide 21 (21-32) mmol/L Anion Gap 7 (3-11) BUN 45 H (6-23) mg/dl Creatinine 2.15 H D (0.6-1.4) mg/dl Est Cr Clr Drug Dosing 40.0 ml/min eGFR 33.33 BUN/Creatinine Ratio 20.9 H (10-20) Glucose 114 H (70-99(Fasting)) mg/dl POC Glucose 148 H 144 H (70-99) mg/dl POC Glucose (other) (70-99) mg/dl Calcium 6.4 L (8.6-10.3) mg/dl Ionized Calcium (1.12-1.32) mmol/L Phosphorus 3.1 (2.5-4.9) mg/dl Magnesium 1.6 L (1.7-2.4) mg/dl Total Bilirubin (0.2-1.0) mg/dl Direct Bilirubin (0-0.2) mg/dl AST (13-39) U/L ALT (7-52) U/L Alkaline Phosphatase (34-104) U/L Ammonia (18-72) umol/L Total Creatine Kinase (30-223) U/L Total Protein (6.0-8.3) gm/dl Albumin (3.4-5.0) gm/dl Globulin (2.5-4.0) gm/dl Albumin/Globulin Ratio (0.9-2) Vitamin B1 (8-30) nmol/L PTH Intact (12.0-88.0) pg/ml PTH Related Protein (11-20) pg/mL Stl C. diff Tox B Gene (Neg) Misc Micro Test 08/28/24 08/28/24 08/28/24 Range/Units 11:22 05:35 03:50 WBC 11.83 H (4.8-10.8) K/ul RBC 2.88 L (4.70-6.10) M/uL Hgb 8.4 L (14.0-18.0) g/dl Hct 28.1 L (42.0-52.0) % MCV 97.6 (80.0-100.0) fL MCH 29.2 (25.0-34.0) pg MCHC 29.9 L (32.0-36.0) g/dL RDW Std Deviation 71.6 H (36.4-46.3) fL RDW Coeff of Eladio 20.5 H (11.5-14.5) % Plt Count 358 (130-400) K/uL MPV 9.9 (9.4-12.4) fL Immature Gran % (Auto) 6.7 % Neut % (Auto) 78.1 % Lymph % (Auto) 8.8 % Powell % (Auto) 6.1 % Eos % (Auto) 0.0 % Baso % (Auto) 0.3 % Neut # (Auto) 9.25 H (1.40-6.50) K/uL Lymph # (Auto) 1.04 L (1.20-3.40) K/uL Powell # (Auto) 0.72 H (0.11-0.59) K/uL Eos # (Auto) 0.00 (0.00-0.50) K/uL Baso # (Auto) 0.03 (0.00-0.20) K/uL Immature Gran # (Auto) 0.79 H (0.01-0.20) K/uL Absolute Nucleated RBC 0.13 H (0.00-0.12) K/uL Nucleated RBC % (auto) 1.1 % Toxic Vacuolation Polychromasia 1+ Anisocytosis Present Target Cells Tear Drop Cells Sodium 148 H (136-145) mmol/L Potassium 4.2 (3.5-5.1) mmol/L Chloride 121 H (98-107) mmol/L Carbon Dioxide 19 L (21-32) mmol/L Anion Gap 8 (3-11) BUN 50 H (6-23) mg/dl Creatinine 2.70 H (0.6-1.4) mg/dl Est Cr Clr Drug Dosing 31.9 ml/min eGFR 25.36 BUN/Creatinine Ratio 18.5 (10-20) Glucose 214 H (70-99(Fasting)) mg/dl POC Glucose 141 H 209 H (70-99) mg/dl POC Glucose (other) (70-99) mg/dl Calcium 6.4 L (8.6-10.3) mg/dl Ionized Calcium (1.12-1.32) mmol/L Phosphorus 3.1 D (2.5-4.9) mg/dl Magnesium 1.9 (1.7-2.4) mg/dl Total Bilirubin (0.2-1.0) mg/dl Direct Bilirubin (0-0.2) mg/dl AST (13-39) U/L ALT (7-52) U/L Alkaline Phosphatase (34-104) U/L Ammonia (18-72) umol/L Total Creatine Kinase 61 (30-223) U/L Total Protein (6.0-8.3) gm/dl Albumin (3.4-5.0) gm/dl Globulin (2.5-4.0) gm/dl Albumin/Globulin Ratio (0.9-2) Vitamin B1 (8-30) nmol/L PTH Intact (12.0-88.0) pg/ml PTH Related Protein (11-20) pg/mL Stl C. diff Tox B Gene (Neg) Misc Micro Test 08/28/24 08/27/24 08/27/24 Range/Units 00:19 17:20 12:19 WBC (4.8-10.8) K/ul RBC (4.70-6.10) M/uL Hgb (14.0-18.0) g/dl Hct (42.0-52.0) % MCV (80.0-100.0) fL MCH (25.0-34.0) pg MCHC (32.0-36.0) g/dL RDW Std Deviation (36.4-46.3) fL RDW Coeff of Eladio (11.5-14.5) % Plt Count (130-400) K/uL MPV (9.4-12.4) fL Immature Gran % (Auto) % Neut % (Auto) % Lymph % (Auto) % Powell % (Auto) % Eos % (Auto) % Baso % (Auto) % Neut # (Auto) (1.40-6.50) K/uL Lymph # (Auto) (1.20-3.40) K/uL Powell # (Auto) (0.11-0.59) K/uL Eos # (Auto) (0.00-0.50) K/uL Baso # (Auto) (0.00-0.20) K/uL Immature Gran # (Auto) (0.01-0.20) K/uL Absolute Nucleated RBC (0.00-0.12) K/uL Nucleated RBC % (auto) % Toxic Vacuolation Polychromasia Anisocytosis Target Cells Tear Drop Cells Sodium (136-145) mmol/L Potassium (3.5-5.1) mmol/L Chloride (98-107) mmol/L Carbon Dioxide (21-32) mmol/L Anion Gap (3-11) BUN (6-23) mg/dl Creatinine (0.6-1.4) mg/dl Est Cr Clr Drug Dosing ml/min eGFR BUN/Creatinine Ratio (10-20) Glucose (70-99(Fasting)) mg/dl POC Glucose 209 H 122 H 102 H (70-99) mg/dl POC Glucose (other) (70-99) mg/dl Calcium (8.6-10.3) mg/dl Ionized Calcium (1.12-1.32) mmol/L Phosphorus (2.5-4.9) mg/dl Magnesium (1.7-2.4) mg/dl Total Bilirubin (0.2-1.0) mg/dl Direct Bilirubin (0-0.2) mg/dl AST (13-39) U/L ALT (7-52) U/L Alkaline Phosphatase (34-104) U/L Ammonia (18-72) umol/L Total Creatine Kinase (30-223) U/L Total Protein (6.0-8.3) gm/dl Albumin (3.4-5.0) gm/dl Globulin (2.5-4.0) gm/dl Albumin/Globulin Ratio (0.9-2) Vitamin B1 (8-30) nmol/L PTH Intact (12.0-88.0) pg/ml PTH Related Protein (11-20) pg/mL Stl C. diff Tox B Gene (Neg) Misc Micro Test 08/27/24 08/27/24 08/27/24 Range/Units 09:26 07:27 05:51 WBC 11.96 H (4.8-10.8) K/ul RBC 2.86 L (4.70-6.10) M/uL Hgb 8.7 L (14.0-18.0) g/dl Hct 28.0 L (42.0-52.0) % MCV 97.9 (80.0-100.0) fL MCH 30.4 (25.0-34.0) pg MCHC 31.1 L (32.0-36.0) g/dL RDW Std Deviation 69.3 H (36.4-46.3) fL RDW Coeff of Eladio 20.3 H (11.5-14.5) % Plt Count 326 (130-400) K/uL MPV 9.8 (9.4-12.4) fL Immature Gran % (Auto) 9.2 % Neut % (Auto) 67.3 % Lymph % (Auto) 16.6 % Powell % (Auto) 6.3 % Eos % (Auto) 0.3 % Baso % (Auto) 0.3 % Neut # (Auto) 8.05 H (1.40-6.50) K/uL Lymph # (Auto) 1.98 (1.20-3.40) K/uL Powell # (Auto) 0.75 H (0.11-0.59) K/uL Eos # (Auto) 0.04 (0.00-0.50) K/uL Baso # (Auto) 0.04 (0.00-0.20) K/uL Immature Gran # (Auto) 1.10 H (0.01-0.20) K/uL Absolute Nucleated RBC 0.28 H (0.00-0.12) K/uL Nucleated RBC % (auto) 2.3 % Toxic Vacuolation Polychromasia 1+ Anisocytosis Present Target Cells 1+ Tear Drop Cells 1+ Sodium 144 (136-145) mmol/L Potassium 3.9 (3.5-5.1) mmol/L Chloride 119 H (98-107) mmol/L Carbon Dioxide 22 (21-32) mmol/L Anion Gap 3 (3-11) BUN 48 H (6-23) mg/dl Creatinine 2.84 H (0.6-1.4) mg/dl Est Cr Clr Drug Dosing 30.3 ml/min eGFR 23.87 BUN/Creatinine Ratio 16.9 (10-20) Glucose 110 H (70-99(Fasting)) mg/dl POC Glucose 110 H (70-99) mg/dl POC Glucose (other) (70-99) mg/dl Calcium 7.1 L (8.6-10.3) mg/dl Ionized Calcium (1.12-1.32) mmol/L Phosphorus 2.1 L (2.5-4.9) mg/dl Magnesium 1.8 (1.7-2.4) mg/dl Total Bilirubin 4.2 H (0.2-1.0) mg/dl Direct Bilirubin 2.7 H (0-0.2) mg/dl AST 225 H (13-39) U/L ALT 54 H (7-52) U/L Alkaline Phosphatase 352 H (34-104) U/L Ammonia 38.0 (18-72) umol/L Total Creatine Kinase (30-223) U/L Total Protein 5.3 L (6.0-8.3) gm/dl Albumin 1.9 L (3.4-5.0) gm/dl Globulin (2.5-4.0) gm/dl Albumin/Globulin Ratio (0.9-2) Vitamin B1 (8-30) nmol/L PTH Intact (12.0-88.0) pg/ml PTH Related Protein (11-20) pg/mL Stl C. diff Tox B Gene (Neg) Misc Micro Test 08/27/24 08/27/24 08/27/24 Range/Units 05:06 04:07 03:07 WBC (4.8-10.8) K/ul RBC (4.70-6.10) M/uL Hgb (14.0-18.0) g/dl Hct (42.0-52.0) % MCV (80.0-100.0) fL MCH (25.0-34.0) pg MCHC (32.0-36.0) g/dL RDW Std Deviation (36.4-46.3) fL RDW Coeff of Eladio (11.5-14.5) % Plt Count (130-400) K/uL MPV (9.4-12.4) fL Immature Gran % (Auto) % Neut % (Auto) % Lymph % (Auto) % Powell % (Auto) % Eos % (Auto) % Baso % (Auto) % Neut # (Auto) (1.40-6.50) K/uL Lymph # (Auto) (1.20-3.40) K/uL Powell # (Auto) (0.11-0.59) K/uL Eos # (Auto) (0.00-0.50) K/uL Baso # (Auto) (0.00-0.20) K/uL Immature Gran # (Auto) (0.01-0.20) K/uL Absolute Nucleated RBC (0.00-0.12) K/uL Nucleated RBC % (auto) % Toxic Vacuolation Polychromasia Anisocytosis Target Cells Tear Drop Cells Sodium (136-145) mmol/L Potassium (3.5-5.1) mmol/L Chloride (98-107) mmol/L Carbon Dioxide (21-32) mmol/L Anion Gap (3-11) BUN (6-23) mg/dl Creatinine (0.6-1.4) mg/dl Est Cr Clr Drug Dosing ml/min eGFR BUN/Creatinine Ratio (10-20) Glucose (70-99(Fasting)) mg/dl POC Glucose 111 H 110 H 127 H (70-99) mg/dl POC Glucose (other) (70-99) mg/dl Calcium (8.6-10.3) mg/dl Ionized Calcium (1.12-1.32) mmol/L Phosphorus (2.5-4.9) mg/dl Magnesium (1.7-2.4) mg/dl Total Bilirubin (0.2-1.0) mg/dl Direct Bilirubin (0-0.2) mg/dl AST (13-39) U/L ALT (7-52) U/L Alkaline Phosphatase (34-104) U/L Ammonia (18-72) umol/L Total Creatine Kinase (30-223) U/L Total Protein (6.0-8.3) gm/dl Albumin (3.4-5.0) gm/dl Globulin (2.5-4.0) gm/dl Albumin/Globulin Ratio (0.9-2) Vitamin B1 (8-30) nmol/L PTH Intact (12.0-88.0) pg/ml PTH Related Protein (11-20) pg/mL Stl C. diff Tox B Gene (Neg) Misc Micro Test 08/27/24 08/27/24 08/27/24 Range/Units 02:09 02:07 00:17 WBC (4.8-10.8) K/ul RBC (4.70-6.10) M/uL Hgb (14.0-18.0) g/dl Hct (42.0-52.0) % MCV (80.0-100.0) fL MCH (25.0-34.0) pg MCHC (32.0-36.0) g/dL RDW Std Deviation (36.4-46.3) fL RDW Coeff of Eladio (11.5-14.5) % Plt Count (130-400) K/uL MPV (9.4-12.4) fL Immature Gran % (Auto) % Neut % (Auto) % Lymph % (Auto) % Powell % (Auto) % Eos % (Auto) % Baso % (Auto) % Neut # (Auto) (1.40-6.50) K/uL Lymph # (Auto) (1.20-3.40) K/uL Powell # (Auto) (0.11-0.59) K/uL Eos # (Auto) (0.00-0.50) K/uL Baso # (Auto) (0.00-0.20) K/uL Immature Gran # (Auto) (0.01-0.20) K/uL Absolute Nucleated RBC (0.00-0.12) K/uL Nucleated RBC % (auto) % Toxic Vacuolation Polychromasia Anisocytosis Target Cells Tear Drop Cells Sodium 143 (136-145) mmol/L Potassium 3.7 (3.5-5.1) mmol/L Chloride 117 H (98-107) mmol/L Carbon Dioxide 21 (21-32) mmol/L Anion Gap 5 (3-11) BUN 51 H (6-23) mg/dl Creatinine 2.93 H (0.6-1.4) mg/dl Est Cr Clr Drug Dosing 29.2 ml/min eGFR 22.99 BUN/Creatinine Ratio 17.4 (10-20) Glucose 106 H (70-99(Fasting)) mg/dl POC Glucose 101 H 95 (70-99) mg/dl POC Glucose (other) (70-99) mg/dl Calcium 6.4 L (8.6-10.3) mg/dl Ionized Calcium (1.12-1.32) mmol/L Phosphorus (2.5-4.9) mg/dl Magnesium (1.7-2.4) mg/dl Total Bilirubin (0.2-1.0) mg/dl Direct Bilirubin (0-0.2) mg/dl AST (13-39) U/L ALT (7-52) U/L Alkaline Phosphatase (34-104) U/L Ammonia (18-72) umol/L Total Creatine Kinase (30-223) U/L Total Protein (6.0-8.3) gm/dl Albumin (3.4-5.0) gm/dl Globulin (2.5-4.0) gm/dl Albumin/Globulin Ratio (0.9-2) Vitamin B1 (8-30) nmol/L PTH Intact (12.0-88.0) pg/ml PTH Related Protein (11-20) pg/mL Stl C. diff Tox B Gene (Neg) Misc Micro Test 08/26/24 08/26/24 08/26/24 Range/Units 23:07 22:17 20:49 WBC (4.8-10.8) K/ul RBC (4.70-6.10) M/uL Hgb (14.0-18.0) g/dl Hct (42.0-52.0) % MCV (80.0-100.0) fL MCH (25.0-34.0) pg MCHC (32.0-36.0) g/dL RDW Std Deviation (36.4-46.3) fL RDW Coeff of Eladio (11.5-14.5) % Plt Count (130-400) K/uL MPV (9.4-12.4) fL Immature Gran % (Auto) % Neut % (Auto) % Lymph % (Auto) % Powell % (Auto) % Eos % (Auto) % Baso % (Auto) % Neut # (Auto) (1.40-6.50) K/uL Lymph # (Auto) (1.20-3.40) K/uL Powell # (Auto) (0.11-0.59) K/uL Eos # (Auto) (0.00-0.50) K/uL Baso # (Auto) (0.00-0.20) K/uL Immature Gran # (Auto) (0.01-0.20) K/uL Absolute Nucleated RBC (0.00-0.12) K/uL Nucleated RBC % (auto) % Toxic Vacuolation Polychromasia Anisocytosis Target Cells Tear Drop Cells Sodium 144 (136-145) mmol/L Potassium 3.8 (3.5-5.1) mmol/L Chloride 117 H (98-107) mmol/L Carbon Dioxide 21 (21-32) mmol/L Anion Gap 6 (3-11) BUN 51 H (6-23) mg/dl Creatinine 3.01 H (0.6-1.4) mg/dl Est Cr Clr Drug Dosing 28.4 ml/min eGFR 22.26 BUN/Creatinine Ratio 16.9 (10-20) Glucose 130 H (70-99(Fasting)) mg/dl POC Glucose 101 H 114 H (70-99) mg/dl POC Glucose (other) (70-99) mg/dl Calcium 6.9 L (8.6-10.3) mg/dl Ionized Calcium (1.12-1.32) mmol/L Phosphorus (2.5-4.9) mg/dl Magnesium (1.7-2.4) mg/dl Total Bilirubin (0.2-1.0) mg/dl Direct Bilirubin (0-0.2) mg/dl AST (13-39) U/L ALT (7-52) U/L Alkaline Phosphatase (34-104) U/L Ammonia (18-72) umol/L Total Creatine Kinase (30-223) U/L Total Protein (6.0-8.3) gm/dl Albumin (3.4-5.0) gm/dl Globulin (2.5-4.0) gm/dl Albumin/Globulin Ratio (0.9-2) Vitamin B1 (8-30) nmol/L PTH Intact (12.0-88.0) pg/ml PTH Related Protein (11-20) pg/mL Stl C. diff Tox B Gene (Neg) Misc Micro Test 08/26/24 08/26/24 08/26/24 Range/Units 20:09 18:19 17:08 WBC (4.8-10.8) K/ul RBC (4.70-6.10) M/uL Hgb (14.0-18.0) g/dl Hct (42.0-52.0) % MCV (80.0-100.0) fL MCH (25.0-34.0) pg MCHC (32.0-36.0) g/dL RDW Std Deviation (36.4-46.3) fL RDW Coeff of Eladio (11.5-14.5) % Plt Count (130-400) K/uL MPV (9.4-12.4) fL Immature Gran % (Auto) % Neut % (Auto) % Lymph % (Auto) % Powell % (Auto) % Eos % (Auto) % Baso % (Auto) % Neut # (Auto) (1.40-6.50) K/uL Lymph # (Auto) (1.20-3.40) K/uL Powell # (Auto) (0.11-0.59) K/uL Eos # (Auto) (0.00-0.50) K/uL Baso # (Auto) (0.00-0.20) K/uL Immature Gran # (Auto) (0.01-0.20) K/uL Absolute Nucleated RBC (0.00-0.12) K/uL Nucleated RBC % (auto) % Toxic Vacuolation Polychromasia Anisocytosis Target Cells Tear Drop Cells Sodium 142 (136-145) mmol/L Potassium 4.0 (3.5-5.1) mmol/L Chloride 117 H (98-107) mmol/L Carbon Dioxide 22 (21-32) mmol/L Anion Gap 3 (3-11) BUN 52 H (6-23) mg/dl Creatinine 3.04 H D (0.6-1.4) mg/dl Est Cr Clr Drug Dosing 28.2 ml/min eGFR 22.00 BUN/Creatinine Ratio 17.1 (10-20) Glucose 165 H (70-99(Fasting)) mg/dl POC Glucose 143 H 146 H (70-99) mg/dl POC Glucose (other) (70-99) mg/dl Calcium 5.9 L* (8.6-10.3) mg/dl Ionized Calcium (1.12-1.32) mmol/L Phosphorus (2.5-4.9) mg/dl Magnesium 2.0 (1.7-2.4) mg/dl Total Bilirubin (0.2-1.0) mg/dl Direct Bilirubin (0-0.2) mg/dl AST (13-39) U/L ALT (7-52) U/L Alkaline Phosphatase (34-104) U/L Ammonia (18-72) umol/L Total Creatine Kinase (30-223) U/L Total Protein (6.0-8.3) gm/dl Albumin (3.4-5.0) gm/dl Globulin (2.5-4.0) gm/dl Albumin/Globulin Ratio (0.9-2) Vitamin B1 (8-30) nmol/L PTH Intact (12.0-88.0) pg/ml PTH Related Protein (11-20) pg/mL Stl C. diff Tox B Gene (Neg) Misc Micro Test 08/26/24 08/26/24 08/26/24 Range/Units 16:16 15:21 14:15 WBC (4.8-10.8) K/ul RBC (4.70-6.10) M/uL Hgb (14.0-18.0) g/dl Hct (42.0-52.0) % MCV (80.0-100.0) fL MCH (25.0-34.0) pg MCHC (32.0-36.0) g/dL RDW Std Deviation (36.4-46.3) fL RDW Coeff of Eladio (11.5-14.5) % Plt Count (130-400) K/uL MPV (9.4-12.4) fL Immature Gran % (Auto) % Neut % (Auto) % Lymph % (Auto) % Powell % (Auto) % Eos % (Auto) % Baso % (Auto) % Neut # (Auto) (1.40-6.50) K/uL Lymph # (Auto) (1.20-3.40) K/uL Powell # (Auto) (0.11-0.59) K/uL Eos # (Auto) (0.00-0.50) K/uL Baso # (Auto) (0.00-0.20) K/uL Immature Gran # (Auto) (0.01-0.20) K/uL Absolute Nucleated RBC (0.00-0.12) K/uL Nucleated RBC % (auto) % Toxic Vacuolation Polychromasia Anisocytosis Target Cells Tear Drop Cells Sodium (136-145) mmol/L Potassium (3.5-5.1) mmol/L Chloride (98-107) mmol/L Carbon Dioxide (21-32) mmol/L Anion Gap (3-11) BUN (6-23) mg/dl Creatinine (0.6-1.4) mg/dl Est Cr Clr Drug Dosing ml/min eGFR BUN/Creatinine Ratio (10-20) Glucose (70-99(Fasting)) mg/dl POC Glucose 143 H 156 H 180 H (70-99) mg/dl POC Glucose (other) (70-99) mg/dl Calcium (8.6-10.3) mg/dl Ionized Calcium (1.12-1.32) mmol/L Phosphorus (2.5-4.9) mg/dl Magnesium (1.7-2.4) mg/dl Total Bilirubin (0.2-1.0) mg/dl Direct Bilirubin (0-0.2) mg/dl AST (13-39) U/L ALT (7-52) U/L Alkaline Phosphatase (34-104) U/L Ammonia (18-72) umol/L Total Creatine Kinase (30-223) U/L Total Protein (6.0-8.3) gm/dl Albumin (3.4-5.0) gm/dl Globulin (2.5-4.0) gm/dl Albumin/Globulin Ratio (0.9-2) Vitamin B1 (8-30) nmol/L PTH Intact (12.0-88.0) pg/ml PTH Related Protein (11-20) pg/mL Stl C. diff Tox B Gene (Neg) Misc Micro Test 08/26/24 08/26/24 08/26/24 Range/Units 12:39 11:35 09:43 WBC (4.8-10.8) K/ul RBC (4.70-6.10) M/uL Hgb (14.0-18.0) g/dl Hct (42.0-52.0) % MCV (80.0-100.0) fL MCH (25.0-34.0) pg MCHC (32.0-36.0) g/dL RDW Std Deviation (36.4-46.3) fL RDW Coeff of Eladio (11.5-14.5) % Plt Count (130-400) K/uL MPV (9.4-12.4) fL Immature Gran % (Auto) % Neut % (Auto) % Lymph % (Auto) % Powell % (Auto) % Eos % (Auto) % Baso % (Auto) % Neut # (Auto) (1.40-6.50) K/uL Lymph # (Auto) (1.20-3.40) K/uL Powell # (Auto) (0.11-0.59) K/uL Eos # (Auto) (0.00-0.50) K/uL Baso # (Auto) (0.00-0.20) K/uL Immature Gran # (Auto) (0.01-0.20) K/uL Absolute Nucleated RBC (0.00-0.12) K/uL Nucleated RBC % (auto) % Toxic Vacuolation Polychromasia Anisocytosis Target Cells Tear Drop Cells Sodium (136-145) mmol/L Potassium (3.5-5.1) mmol/L Chloride (98-107) mmol/L Carbon Dioxide (21-32) mmol/L Anion Gap (3-11) BUN (6-23) mg/dl Creatinine (0.6-1.4) mg/dl Est Cr Clr Drug Dosing ml/min eGFR BUN/Creatinine Ratio (10-20) Glucose (70-99(Fasting)) mg/dl POC Glucose 196 H 188 H 168 H (70-99) mg/dl POC Glucose (other) (70-99) mg/dl Calcium (8.6-10.3) mg/dl Ionized Calcium (1.12-1.32) mmol/L Phosphorus (2.5-4.9) mg/dl Magnesium (1.7-2.4) mg/dl Total Bilirubin (0.2-1.0) mg/dl Direct Bilirubin (0-0.2) mg/dl AST (13-39) U/L ALT (7-52) U/L Alkaline Phosphatase (34-104) U/L Ammonia (18-72) umol/L Total Creatine Kinase (30-223) U/L Total Protein (6.0-8.3) gm/dl Albumin (3.4-5.0) gm/dl Globulin (2.5-4.0) gm/dl Albumin/Globulin Ratio (0.9-2) Vitamin B1 (8-30) nmol/L PTH Intact (12.0-88.0) pg/ml PTH Related Protein (11-20) pg/mL Stl C. diff Tox B Gene (Neg) Misc Micro Test 08/26/24 08/26/24 08/26/24 Range/Units 08:31 07:39 06:13 WBC (4.8-10.8) K/ul RBC (4.70-6.10) M/uL Hgb (14.0-18.0) g/dl Hct (42.0-52.0) % MCV (80.0-100.0) fL MCH (25.0-34.0) pg MCHC (32.0-36.0) g/dL RDW Std Deviation (36.4-46.3) fL RDW Coeff of Eladio (11.5-14.5) % Plt Count (130-400) K/uL MPV (9.4-12.4) fL Immature Gran % (Auto) % Neut % (Auto) % Lymph % (Auto) % Powell % (Auto) % Eos % (Auto) % Baso % (Auto) % Neut # (Auto) (1.40-6.50) K/uL Lymph # (Auto) (1.20-3.40) K/uL Powell # (Auto) (0.11-0.59) K/uL Eos # (Auto) (0.00-0.50) K/uL Baso # (Auto) (0.00-0.20) K/uL Immature Gran # (Auto) (0.01-0.20) K/uL Absolute Nucleated RBC (0.00-0.12) K/uL Nucleated RBC % (auto) % Toxic Vacuolation Polychromasia Anisocytosis Target Cells Tear Drop Cells Sodium (136-145) mmol/L Potassium (3.5-5.1) mmol/L Chloride (98-107) mmol/L Carbon Dioxide (21-32) mmol/L Anion Gap (3-11) BUN (6-23) mg/dl Creatinine (0.6-1.4) mg/dl Est Cr Clr Drug Dosing ml/min eGFR BUN/Creatinine Ratio (10-20) Glucose (70-99(Fasting)) mg/dl POC Glucose 164 H 139 H (70-99) mg/dl POC Glucose (other) 180 H (70-99) mg/dl Calcium (8.6-10.3) mg/dl Ionized Calcium (1.12-1.32) mmol/L Phosphorus (2.5-4.9) mg/dl Magnesium (1.7-2.4) mg/dl Total Bilirubin (0.2-1.0) mg/dl Direct Bilirubin (0-0.2) mg/dl AST (13-39) U/L ALT (7-52) U/L Alkaline Phosphatase (34-104) U/L Ammonia (18-72) umol/L Total Creatine Kinase (30-223) U/L Total Protein (6.0-8.3) gm/dl Albumin (3.4-5.0) gm/dl Globulin (2.5-4.0) gm/dl Albumin/Globulin Ratio (0.9-2) Vitamin B1 (8-30) nmol/L PTH Intact (12.0-88.0) pg/ml PTH Related Protein (11-20) pg/mL Stl C. diff Tox B Gene (Neg) Misc Micro Test 08/26/24 08/26/24 08/26/24 Range/Units 05:10 04:24 04:02 WBC 9.21 (4.8-10.8) K/ul RBC 2.76 L (4.70-6.10) M/uL Hgb 8.3 L (14.0-18.0) g/dl Hct 27.1 L (42.0-52.0) % MCV 98.2 (80.0-100.0) fL MCH 30.1 (25.0-34.0) pg MCHC 30.6 L (32.0-36.0) g/dL RDW Std Deviation 63.8 H (36.4-46.3) fL RDW Coeff of Eladio 19.9 H (11.5-14.5) % Plt Count 277 (130-400) K/uL MPV 9.6 (9.4-12.4) fL Immature Gran % (Auto) 7.8 % Neut % (Auto) 77.2 % Lymph % (Auto) 10.0 % Powell % (Auto) 4.8 % Eos % (Auto) 0.0 % Baso % (Auto) 0.2 % Neut # (Auto) 7.11 H (1.40-6.50) K/uL Lymph # (Auto) 0.92 L (1.20-3.40) K/uL Powell # (Auto) 0.44 (0.11-0.59) K/uL Eos # (Auto) 0.00 (0.00-0.50) K/uL Baso # (Auto) 0.02 (0.00-0.20) K/uL Immature Gran # (Auto) 0.72 H (0.01-0.20) K/uL Absolute Nucleated RBC 0.22 H (0.00-0.12) K/uL Nucleated RBC % (auto) 2.4 % Toxic Vacuolation Polychromasia 1+ Anisocytosis Target Cells Tear Drop Cells 1+ Sodium 144 (136-145) mmol/L Potassium 4.1 (3.5-5.1) mmol/L Chloride 114 H (98-107) mmol/L Carbon Dioxide 22 (21-32) mmol/L Anion Gap 8 (3-11) BUN 54 H (6-23) mg/dl Creatinine 3.34 H (0.6-1.4) mg/dl Est Cr Clr Drug Dosing 25.6 ml/min eGFR 19.65 BUN/Creatinine Ratio 16.2 (10-20) Glucose 176 H (70-99(Fasting)) mg/dl POC Glucose 188 H 227 H (70-99) mg/dl POC Glucose (other) (70-99) mg/dl Calcium 7.3 L (8.6-10.3) mg/dl Ionized Calcium (1.12-1.32) mmol/L Phosphorus 2.2 L (2.5-4.9) mg/dl Magnesium TNP (1.7-2.4) mg/dl Total Bilirubin (0.2-1.0) mg/dl Direct Bilirubin (0-0.2) mg/dl AST (13-39) U/L ALT (7-52) U/L Alkaline Phosphatase (34-104) U/L Ammonia (18-72) umol/L Total Creatine Kinase (30-223) U/L Total Protein (6.0-8.3) gm/dl Albumin (3.4-5.0) gm/dl Globulin (2.5-4.0) gm/dl Albumin/Globulin Ratio (0.9-2) Vitamin B1 (8-30) nmol/L PTH Intact (12.0-88.0) pg/ml PTH Related Protein (11-20) pg/mL Stl C. diff Tox B Gene (Neg) Misc Micro Test 08/26/24 08/26/24 08/26/24 Range/Units 03:09 02:02 01:59 WBC (4.8-10.8) K/ul RBC (4.70-6.10) M/uL Hgb (14.0-18.0) g/dl Hct (42.0-52.0) % MCV (80.0-100.0) fL MCH (25.0-34.0) pg MCHC (32.0-36.0) g/dL RDW Std Deviation (36.4-46.3) fL RDW Coeff of Eladio (11.5-14.5) % Plt Count (130-400) K/uL MPV (9.4-12.4) fL Immature Gran % (Auto) % Neut % (Auto) % Lymph % (Auto) % Powell % (Auto) % Eos % (Auto) % Baso % (Auto) % Neut # (Auto) (1.40-6.50) K/uL Lymph # (Auto) (1.20-3.40) K/uL Powell # (Auto) (0.11-0.59) K/uL Eos # (Auto) (0.00-0.50) K/uL Baso # (Auto) (0.00-0.20) K/uL Immature Gran # (Auto) (0.01-0.20) K/uL Absolute Nucleated RBC (0.00-0.12) K/uL Nucleated RBC % (auto) % Toxic Vacuolation Polychromasia Anisocytosis Target Cells Tear Drop Cells Sodium 143 (136-145) mmol/L Potassium 4.3 (3.5-5.1) mmol/L Chloride 115 H (98-107) mmol/L Carbon Dioxide 22 (21-32) mmol/L Anion Gap 6 (3-11) BUN 54 H (6-23) mg/dl Creatinine 3.38 H (0.6-1.4) mg/dl Est Cr Clr Drug Dosing 25.3 ml/min eGFR 19.37 BUN/Creatinine Ratio 16.0 (10-20) Glucose 182 H (70-99(Fasting)) mg/dl POC Glucose 202 H 183 H (70-99) mg/dl POC Glucose (other) (70-99) mg/dl Calcium 6.3 L (8.6-10.3) mg/dl Ionized Calcium (1.12-1.32) mmol/L Phosphorus (2.5-4.9) mg/dl Magnesium (1.7-2.4) mg/dl Total Bilirubin (0.2-1.0) mg/dl Direct Bilirubin (0-0.2) mg/dl AST (13-39) U/L ALT (7-52) U/L Alkaline Phosphatase (34-104) U/L Ammonia (18-72) umol/L Total Creatine Kinase (30-223) U/L Total Protein (6.0-8.3) gm/dl Albumin (3.4-5.0) gm/dl Globulin (2.5-4.0) gm/dl Albumin/Globulin Ratio (0.9-2) Vitamin B1 (8-30) nmol/L PTH Intact (12.0-88.0) pg/ml PTH Related Protein (11-20) pg/mL Stl C. diff Tox B Gene (Neg) Misc Micro Test 08/26/24 08/25/24 08/25/24 Range/Units 00:02 23:13 22:43 WBC (4.8-10.8) K/ul RBC (4.70-6.10) M/uL Hgb (14.0-18.0) g/dl Hct (42.0-52.0) % MCV (80.0-100.0) fL MCH (25.0-34.0) pg MCHC (32.0-36.0) g/dL RDW Std Deviation (36.4-46.3) fL RDW Coeff of Eladio (11.5-14.5) % Plt Count (130-400) K/uL MPV (9.4-12.4) fL Immature Gran % (Auto) % Neut % (Auto) % Lymph % (Auto) % Powell % (Auto) % Eos % (Auto) % Baso % (Auto) % Neut # (Auto) (1.40-6.50) K/uL Lymph # (Auto) (1.20-3.40) K/uL Powell # (Auto) (0.11-0.59) K/uL Eos # (Auto) (0.00-0.50) K/uL Baso # (Auto) (0.00-0.20) K/uL Immature Gran # (Auto) (0.01-0.20) K/uL Absolute Nucleated RBC (0.00-0.12) K/uL Nucleated RBC % (auto) % Toxic Vacuolation Polychromasia Anisocytosis Target Cells Tear Drop Cells Sodium 144 (136-145) mmol/L Potassium 4.3 (3.5-5.1) mmol/L Chloride 117 H (98-107) mmol/L Carbon Dioxide 22 (21-32) mmol/L Anion Gap 5 (3-11) BUN 56 H (6-23) mg/dl Creatinine 3.49 H (0.6-1.4) mg/dl Est Cr Clr Drug Dosing 24.5 ml/min eGFR 18.64 BUN/Creatinine Ratio 16.0 (10-20) Glucose 166 H (70-99(Fasting)) mg/dl POC Glucose 170 H 168 H (70-99) mg/dl POC Glucose (other) (70-99) mg/dl Calcium 6.0 L (8.6-10.3) mg/dl Ionized Calcium (1.12-1.32) mmol/L Phosphorus (2.5-4.9) mg/dl Magnesium (1.7-2.4) mg/dl Total Bilirubin (0.2-1.0) mg/dl Direct Bilirubin (0-0.2) mg/dl AST (13-39) U/L ALT (7-52) U/L Alkaline Phosphatase (34-104) U/L Ammonia (18-72) umol/L Total Creatine Kinase (30-223) U/L Total Protein (6.0-8.3) gm/dl Albumin (3.4-5.0) gm/dl Globulin (2.5-4.0) gm/dl Albumin/Globulin Ratio (0.9-2) Vitamin B1 (8-30) nmol/L PTH Intact (12.0-88.0) pg/ml PTH Related Protein (11-20) pg/mL Stl C. diff Tox B Gene (Neg) Misc Micro Test 08/25/24 08/25/24 08/25/24 Range/Units 22:20 21:13 20:20 WBC (4.8-10.8) K/ul RBC (4.70-6.10) M/uL Hgb (14.0-18.0) g/dl Hct (42.0-52.0) % MCV (80.0-100.0) fL MCH (25.0-34.0) pg MCHC (32.0-36.0) g/dL RDW Std Deviation (36.4-46.3) fL RDW Coeff of Eladio (11.5-14.5) % Plt Count (130-400) K/uL MPV (9.4-12.4) fL Immature Gran % (Auto) % Neut % (Auto) % Lymph % (Auto) % Powell % (Auto) % Eos % (Auto) % Baso % (Auto) % Neut # (Auto) (1.40-6.50) K/uL Lymph # (Auto) (1.20-3.40) K/uL Powell # (Auto) (0.11-0.59) K/uL Eos # (Auto) (0.00-0.50) K/uL Baso # (Auto) (0.00-0.20) K/uL Immature Gran # (Auto) (0.01-0.20) K/uL Absolute Nucleated RBC (0.00-0.12) K/uL Nucleated RBC % (auto) % Toxic Vacuolation Polychromasia Anisocytosis Target Cells Tear Drop Cells Sodium (136-145) mmol/L Potassium (3.5-5.1) mmol/L Chloride (98-107) mmol/L Carbon Dioxide (21-32) mmol/L Anion Gap (3-11) BUN (6-23) mg/dl Creatinine (0.6-1.4) mg/dl Est Cr Clr Drug Dosing ml/min eGFR BUN/Creatinine Ratio (10-20) Glucose (70-99(Fasting)) mg/dl POC Glucose 166 H 175 H 186 H (70-99) mg/dl POC Glucose (other) (70-99) mg/dl Calcium (8.6-10.3) mg/dl Ionized Calcium (1.12-1.32) mmol/L Phosphorus (2.5-4.9) mg/dl Magnesium (1.7-2.4) mg/dl Total Bilirubin (0.2-1.0) mg/dl Direct Bilirubin (0-0.2) mg/dl AST (13-39) U/L ALT (7-52) U/L Alkaline Phosphatase (34-104) U/L Ammonia (18-72) umol/L Total Creatine Kinase (30-223) U/L Total Protein (6.0-8.3) gm/dl Albumin (3.4-5.0) gm/dl Globulin (2.5-4.0) gm/dl Albumin/Globulin Ratio (0.9-2) Vitamin B1 (8-30) nmol/L PTH Intact (12.0-88.0) pg/ml PTH Related Protein (11-20) pg/mL Stl C. diff Tox B Gene (Neg) Misc Micro Test 08/25/24 08/25/24 08/25/24 Range/Units 18:37 16:37 15:34 WBC (4.8-10.8) K/ul RBC (4.70-6.10) M/uL Hgb (14.0-18.0) g/dl Hct (42.0-52.0) % MCV (80.0-100.0) fL MCH (25.0-34.0) pg MCHC (32.0-36.0) g/dL RDW Std Deviation (36.4-46.3) fL RDW Coeff of Eladio (11.5-14.5) % Plt Count (130-400) K/uL MPV (9.4-12.4) fL Immature Gran % (Auto) % Neut % (Auto) % Lymph % (Auto) % Powell % (Auto) % Eos % (Auto) % Baso % (Auto) % Neut # (Auto) (1.40-6.50) K/uL Lymph # (Auto) (1.20-3.40) K/uL Powell # (Auto) (0.11-0.59) K/uL Eos # (Auto) (0.00-0.50) K/uL Baso # (Auto) (0.00-0.20) K/uL Immature Gran # (Auto) (0.01-0.20) K/uL Absolute Nucleated RBC (0.00-0.12) K/uL Nucleated RBC % (auto) % Toxic Vacuolation Polychromasia Anisocytosis Target Cells Tear Drop Cells Sodium 143 (136-145) mmol/L Potassium 3.7 (3.5-5.1) mmol/L Chloride 114 H (98-107) mmol/L Carbon Dioxide 21 (21-32) mmol/L Anion Gap 8 (3-11) BUN 56 H (6-23) mg/dl Creatinine 3.53 H (0.6-1.4) mg/dl Est Cr Clr Drug Dosing 24.2 ml/min eGFR 18.39 BUN/Creatinine Ratio 15.9 (10-20) Glucose 129 H (70-99(Fasting)) mg/dl POC Glucose 148 H 140 H (70-99) mg/dl POC Glucose (other) (70-99) mg/dl Calcium 6.5 L (8.6-10.3) mg/dl Ionized Calcium (1.12-1.32) mmol/L Phosphorus (2.5-4.9) mg/dl Magnesium (1.7-2.4) mg/dl Total Bilirubin (0.2-1.0) mg/dl Direct Bilirubin (0-0.2) mg/dl AST (13-39) U/L ALT (7-52) U/L Alkaline Phosphatase (34-104) U/L Ammonia (18-72) umol/L Total Creatine Kinase (30-223) U/L Total Protein (6.0-8.3) gm/dl Albumin (3.4-5.0) gm/dl Globulin (2.5-4.0) gm/dl Albumin/Globulin Ratio (0.9-2) Vitamin B1 (8-30) nmol/L PTH Intact (12.0-88.0) pg/ml PTH Related Protein (11-20) pg/mL Stl C. diff Tox B Gene (Neg) Misc Micro Test 08/25/24 08/25/24 08/25/24 Range/Units 14:19 14:09 12:20 WBC (4.8-10.8) K/ul RBC (4.70-6.10) M/uL Hgb (14.0-18.0) g/dl Hct (42.0-52.0) % MCV (80.0-100.0) fL MCH (25.0-34.0) pg MCHC (32.0-36.0) g/dL RDW Std Deviation (36.4-46.3) fL RDW Coeff of Eladio (11.5-14.5) % Plt Count (130-400) K/uL MPV (9.4-12.4) fL Immature Gran % (Auto) % Neut % (Auto) % Lymph % (Auto) % Powell % (Auto) % Eos % (Auto) % Baso % (Auto) % Neut # (Auto) (1.40-6.50) K/uL Lymph # (Auto) (1.20-3.40) K/uL Powell # (Auto) (0.11-0.59) K/uL Eos # (Auto) (0.00-0.50) K/uL Baso # (Auto) (0.00-0.20) K/uL Immature Gran # (Auto) (0.01-0.20) K/uL Absolute Nucleated RBC (0.00-0.12) K/uL Nucleated RBC % (auto) % Toxic Vacuolation Polychromasia Anisocytosis Target Cells Tear Drop Cells Sodium 142 (136-145) mmol/L Potassium 4.1 (3.5-5.1) mmol/L Chloride 113 H (98-107) mmol/L Carbon Dioxide 22 (21-32) mmol/L Anion Gap 7 (3-11) BUN 56 H (6-23) mg/dl Creatinine 3.63 H (0.6-1.4) mg/dl Est Cr Clr Drug Dosing 23.6 ml/min eGFR 17.78 BUN/Creatinine Ratio 15.4 (10-20) Glucose 171 H (70-99(Fasting)) mg/dl POC Glucose 159 H 187 H (70-99) mg/dl POC Glucose (other) (70-99) mg/dl Calcium 6.8 L (8.6-10.3) mg/dl Ionized Calcium (1.12-1.32) mmol/L Phosphorus (2.5-4.9) mg/dl Magnesium (1.7-2.4) mg/dl Total Bilirubin (0.2-1.0) mg/dl Direct Bilirubin (0-0.2) mg/dl AST (13-39) U/L ALT (7-52) U/L Alkaline Phosphatase (34-104) U/L Ammonia (18-72) umol/L Total Creatine Kinase (30-223) U/L Total Protein (6.0-8.3) gm/dl Albumin (3.4-5.0) gm/dl Globulin (2.5-4.0) gm/dl Albumin/Globulin Ratio (0.9-2) Vitamin B1 (8-30) nmol/L PTH Intact (12.0-88.0) pg/ml PTH Related Protein (11-20) pg/mL Stl C. diff Tox B Gene (Neg) Misc Micro Test 08/25/24 08/25/24 08/25/24 Range/Units 09:45 08:14 08:12 WBC (4.8-10.8) K/ul RBC (4.70-6.10) M/uL Hgb (14.0-18.0) g/dl Hct (42.0-52.0) % MCV (80.0-100.0) fL MCH (25.0-34.0) pg MCHC (32.0-36.0) g/dL RDW Std Deviation (36.4-46.3) fL RDW Coeff of Eladio (11.5-14.5) % Plt Count (130-400) K/uL MPV (9.4-12.4) fL Immature Gran % (Auto) % Neut % (Auto) % Lymph % (Auto) % Powell % (Auto) % Eos % (Auto) % Baso % (Auto) % Neut # (Auto) (1.40-6.50) K/uL Lymph # (Auto) (1.20-3.40) K/uL Powell # (Auto) (0.11-0.59) K/uL Eos # (Auto) (0.00-0.50) K/uL Baso # (Auto) (0.00-0.20) K/uL Immature Gran # (Auto) (0.01-0.20) K/uL Absolute Nucleated RBC (0.00-0.12) K/uL Nucleated RBC % (auto) % Toxic Vacuolation Polychromasia Anisocytosis Target Cells Tear Drop Cells Sodium 143 (136-145) mmol/L Potassium 3.6 (3.5-5.1) mmol/L Chloride 114 H (98-107) mmol/L Carbon Dioxide 23 (21-32) mmol/L Anion Gap 6 (3-11) BUN 56 H (6-23) mg/dl Creatinine 3.65 H (0.6-1.4) mg/dl Est Cr Clr Drug Dosing 23.4 ml/min eGFR 17.66 BUN/Creatinine Ratio 15.3 (10-20) Glucose 184 H (70-99(Fasting)) mg/dl POC Glucose 180 H 181 H (70-99) mg/dl POC Glucose (other) (70-99) mg/dl Calcium 6.1 L (8.6-10.3) mg/dl Ionized Calcium (1.12-1.32) mmol/L Phosphorus (2.5-4.9) mg/dl Magnesium (1.7-2.4) mg/dl Total Bilirubin (0.2-1.0) mg/dl Direct Bilirubin (0-0.2) mg/dl AST (13-39) U/L ALT (7-52) U/L Alkaline Phosphatase (34-104) U/L Ammonia (18-72) umol/L Total Creatine Kinase (30-223) U/L Total Protein (6.0-8.3) gm/dl Albumin (3.4-5.0) gm/dl Globulin (2.5-4.0) gm/dl Albumin/Globulin Ratio (0.9-2) Vitamin B1 (8-30) nmol/L PTH Intact (12.0-88.0) pg/ml PTH Related Protein (11-20) pg/mL Stl C. diff Tox B Gene (Neg) Misc Micro Test 08/25/24 08/25/24 08/25/24 Range/Units 06:04 04:01 03:17 WBC (4.8-10.8) K/ul RBC (4.70-6.10) M/uL Hgb (14.0-18.0) g/dl Hct (42.0-52.0) % MCV (80.0-100.0) fL MCH (25.0-34.0) pg MCHC (32.0-36.0) g/dL RDW Std Deviation (36.4-46.3) fL RDW Coeff of Eladio (11.5-14.5) % Plt Count (130-400) K/uL MPV (9.4-12.4) fL Immature Gran % (Auto) % Neut % (Auto) % Lymph % (Auto) % Powell % (Auto) % Eos % (Auto) % Baso % (Auto) % Neut # (Auto) (1.40-6.50) K/uL Lymph # (Auto) (1.20-3.40) K/uL Powell # (Auto) (0.11-0.59) K/uL Eos # (Auto) (0.00-0.50) K/uL Baso # (Auto) (0.00-0.20) K/uL Immature Gran # (Auto) (0.01-0.20) K/uL Absolute Nucleated RBC (0.00-0.12) K/uL Nucleated RBC % (auto) % Toxic Vacuolation Polychromasia Anisocytosis Target Cells Tear Drop Cells Sodium (136-145) mmol/L Potassium (3.5-5.1) mmol/L Chloride (98-107) mmol/L Carbon Dioxide (21-32) mmol/L Anion Gap (3-11) BUN (6-23) mg/dl Creatinine (0.6-1.4) mg/dl Est Cr Clr Drug Dosing ml/min eGFR BUN/Creatinine Ratio (10-20) Glucose (70-99(Fasting)) mg/dl POC Glucose 158 H 175 H (70-99) mg/dl POC Glucose (other) (70-99) mg/dl Calcium (8.6-10.3) mg/dl Ionized Calcium 0.83 L (1.12-1.32) mmol/L Phosphorus (2.5-4.9) mg/dl Magnesium (1.7-2.4) mg/dl Total Bilirubin (0.2-1.0) mg/dl Direct Bilirubin (0-0.2) mg/dl AST (13-39) U/L ALT (7-52) U/L Alkaline Phosphatase (34-104) U/L Ammonia (18-72) umol/L Total Creatine Kinase (30-223) U/L Total Protein (6.0-8.3) gm/dl Albumin (3.4-5.0) gm/dl Globulin (2.5-4.0) gm/dl Albumin/Globulin Ratio (0.9-2) Vitamin B1 (8-30) nmol/L PTH Intact (12.0-88.0) pg/ml PTH Related Protein (11-20) pg/mL Stl C. diff Tox B Gene (Neg) Misc Micro Test 08/25/24 08/25/24 08/25/24 Range/Units 03:11 02:15 00:14 WBC 11.16 H (4.8-10.8) K/ul RBC 2.57 L (4.70-6.10) M/uL Hgb 7.9 L (14.0-18.0) g/dl Hct 24.4 L (42.0-52.0) % MCV 94.9 (80.0-100.0) fL MCH 30.7 (25.0-34.0) pg MCHC 32.4 (32.0-36.0) g/dL RDW Std Deviation 57.7 H (36.4-46.3) fL RDW Coeff of Eladio 19.3 H (11.5-14.5) % Plt Count 257 (130-400) K/uL MPV 9.8 (9.4-12.4) fL Immature Gran % (Auto) 7.3 % Neut % (Auto) 78.4 % Lymph % (Auto) 9.3 % Powell % (Auto) 4.8 % Eos % (Auto) 0.0 % Baso % (Auto) 0.2 % Neut # (Auto) 8.75 H (1.40-6.50) K/uL Lymph # (Auto) 1.04 L (1.20-3.40) K/uL Powell # (Auto) 0.54 (0.11-0.59) K/uL Eos # (Auto) 0.00 (0.00-0.50) K/uL Baso # (Auto) 0.02 (0.00-0.20) K/uL Immature Gran # (Auto) 0.81 H (0.01-0.20) K/uL Absolute Nucleated RBC 0.37 H (0.00-0.12) K/uL Nucleated RBC % (auto) 3.3 % Toxic Vacuolation 1+ Polychromasia 1+ Anisocytosis Target Cells Tear Drop Cells Sodium 143 (136-145) mmol/L Potassium 3.5 (3.5-5.1) mmol/L Chloride 113 H (98-107) mmol/L Carbon Dioxide 22 (21-32) mmol/L Anion Gap 8 (3-11) BUN 57 H (6-23) mg/dl Creatinine 3.83 H (0.6-1.4) mg/dl Est Cr Clr Drug Dosing 22.2 ml/min eGFR 16.67 BUN/Creatinine Ratio 14.9 (10-20) Glucose 167 H (70-99(Fasting)) mg/dl POC Glucose 162 H 166 H (70-99) mg/dl POC Glucose (other) (70-99) mg/dl Calcium 5.5 L* (8.6-10.3) mg/dl Ionized Calcium (1.12-1.32) mmol/L Phosphorus 2.6 (2.5-4.9) mg/dl Magnesium 2.1 (1.7-2.4) mg/dl Total Bilirubin 4.0 H (0.2-1.0) mg/dl Direct Bilirubin 2.6 H (0-0.2) mg/dl AST 209 H (13-39) U/L ALT 55 H (7-52) U/L Alkaline Phosphatase 378 H (34-104) U/L Ammonia (18-72) umol/L Total Creatine Kinase (30-223) U/L Total Protein 5.1 L (6.0-8.3) gm/dl Albumin 1.7 L (3.4-5.0) gm/dl Globulin (2.5-4.0) gm/dl Albumin/Globulin Ratio (0.9-2) Vitamin B1 (8-30) nmol/L PTH Intact (12.0-88.0) pg/ml PTH Related Protein (11-20) pg/mL Stl C. diff Tox B Gene (Neg) Misc Micro Test 08/24/24 08/24/24 08/24/24 Range/Units 22:06 20:59 19:59 WBC (4.8-10.8) K/ul RBC (4.70-6.10) M/uL Hgb (14.0-18.0) g/dl Hct (42.0-52.0) % MCV (80.0-100.0) fL MCH (25.0-34.0) pg MCHC (32.0-36.0) g/dL RDW Std Deviation (36.4-46.3) fL RDW Coeff of Eladio (11.5-14.5) % Plt Count (130-400) K/uL MPV (9.4-12.4) fL Immature Gran % (Auto) % Neut % (Auto) % Lymph % (Auto) % Powell % (Auto) % Eos % (Auto) % Baso % (Auto) % Neut # (Auto) (1.40-6.50) K/uL Lymph # (Auto) (1.20-3.40) K/uL Powell # (Auto) (0.11-0.59) K/uL Eos # (Auto) (0.00-0.50) K/uL Baso # (Auto) (0.00-0.20) K/uL Immature Gran # (Auto) (0.01-0.20) K/uL Absolute Nucleated RBC (0.00-0.12) K/uL Nucleated RBC % (auto) % Toxic Vacuolation Polychromasia Anisocytosis Target Cells Tear Drop Cells Sodium 142 (136-145) mmol/L Potassium 3.6 (3.5-5.1) mmol/L Chloride 112 H (98-107) mmol/L Carbon Dioxide 23 (21-32) mmol/L Anion Gap 7 (3-11) BUN 57 H (6-23) mg/dl Creatinine 3.95 H (0.6-1.4) mg/dl Est Cr Clr Drug Dosing 21.6 ml/min eGFR 16.07 BUN/Creatinine Ratio 14.4 (10-20) Glucose 151 H (70-99(Fasting)) mg/dl POC Glucose 153 H 150 H (70-99) mg/dl POC Glucose (other) (70-99) mg/dl Calcium 6.5 L (8.6-10.3) mg/dl Ionized Calcium (1.12-1.32) mmol/L Phosphorus (2.5-4.9) mg/dl Magnesium 2.3 (1.7-2.4) mg/dl Total Bilirubin (0.2-1.0) mg/dl Direct Bilirubin (0-0.2) mg/dl AST (13-39) U/L ALT (7-52) U/L Alkaline Phosphatase (34-104) U/L Ammonia (18-72) umol/L Total Creatine Kinase (30-223) U/L Total Protein (6.0-8.3) gm/dl Albumin (3.4-5.0) gm/dl Globulin (2.5-4.0) gm/dl Albumin/Globulin Ratio (0.9-2) Vitamin B1 (8-30) nmol/L PTH Intact (12.0-88.0) pg/ml PTH Related Protein (11-20) pg/mL Stl C. diff Tox B Gene (Neg) Misc Micro Test 08/24/24 08/24/24 08/24/24 Range/Units 19:41 15:56 15:51 WBC (4.8-10.8) K/ul RBC (4.70-6.10) M/uL Hgb (14.0-18.0) g/dl Hct (42.0-52.0) % MCV (80.0-100.0) fL MCH (25.0-34.0) pg MCHC (32.0-36.0) g/dL RDW Std Deviation (36.4-46.3) fL RDW Coeff of Eladio (11.5-14.5) % Plt Count (130-400) K/uL MPV (9.4-12.4) fL Immature Gran % (Auto) % Neut % (Auto) % Lymph % (Auto) % Powell % (Auto) % Eos % (Auto) % Baso % (Auto) % Neut # (Auto) (1.40-6.50) K/uL Lymph # (Auto) (1.20-3.40) K/uL Powell # (Auto) (0.11-0.59) K/uL Eos # (Auto) (0.00-0.50) K/uL Baso # (Auto) (0.00-0.20) K/uL Immature Gran # (Auto) (0.01-0.20) K/uL Absolute Nucleated RBC (0.00-0.12) K/uL Nucleated RBC % (auto) % Toxic Vacuolation Polychromasia Anisocytosis Target Cells Tear Drop Cells Sodium 143 (136-145) mmol/L Potassium 3.7 (3.5-5.1) mmol/L Chloride 115 H (98-107) mmol/L Carbon Dioxide 24 (21-32) mmol/L Anion Gap 4 (3-11) BUN 58 H (6-23) mg/dl Creatinine 3.86 H (0.6-1.4) mg/dl Est Cr Clr Drug Dosing 22.1 ml/min eGFR 16.52 BUN/Creatinine Ratio 15.0 (10-20) Glucose 137 H (70-99(Fasting)) mg/dl POC Glucose 135 H (70-99) mg/dl POC Glucose (other) 142 H (70-99) mg/dl Calcium 6.2 L (8.6-10.3) mg/dl Ionized Calcium (1.12-1.32) mmol/L Phosphorus (2.5-4.9) mg/dl Magnesium 2.3 (1.7-2.4) mg/dl Total Bilirubin (0.2-1.0) mg/dl Direct Bilirubin (0-0.2) mg/dl AST (13-39) U/L ALT (7-52) U/L Alkaline Phosphatase (34-104) U/L Ammonia (18-72) umol/L Total Creatine Kinase (30-223) U/L Total Protein (6.0-8.3) gm/dl Albumin (3.4-5.0) gm/dl Globulin (2.5-4.0) gm/dl Albumin/Globulin Ratio (0.9-2) Vitamin B1 (8-30) nmol/L PTH Intact (12.0-88.0) pg/ml PTH Related Protein (11-20) pg/mL Stl C. diff Tox B Gene (Neg) Misc Micro Test 08/24/24 08/24/24 08/24/24 Range/Units 13:03 12:03 11:10 WBC (4.8-10.8) K/ul RBC (4.70-6.10) M/uL Hgb (14.0-18.0) g/dl Hct (42.0-52.0) % MCV (80.0-100.0) fL MCH (25.0-34.0) pg MCHC (32.0-36.0) g/dL RDW Std Deviation (36.4-46.3) fL RDW Coeff of Eladio (11.5-14.5) % Plt Count (130-400) K/uL MPV (9.4-12.4) fL Immature Gran % (Auto) % Neut % (Auto) % Lymph % (Auto) % Powell % (Auto) % Eos % (Auto) % Baso % (Auto) % Neut # (Auto) (1.40-6.50) K/uL Lymph # (Auto) (1.20-3.40) K/uL Powell # (Auto) (0.11-0.59) K/uL Eos # (Auto) (0.00-0.50) K/uL Baso # (Auto) (0.00-0.20) K/uL Immature Gran # (Auto) (0.01-0.20) K/uL Absolute Nucleated RBC (0.00-0.12) K/uL Nucleated RBC % (auto) % Toxic Vacuolation Polychromasia Anisocytosis Target Cells Tear Drop Cells Sodium 144 (136-145) mmol/L Potassium 3.8 (3.5-5.1) mmol/L Chloride 113 H (98-107) mmol/L Carbon Dioxide 25 (21-32) mmol/L Anion Gap 6 (3-11) BUN 55 H (6-23) mg/dl Creatinine 3.82 H (0.6-1.4) mg/dl Est Cr Clr Drug Dosing 22.3 ml/min eGFR 16.72 BUN/Creatinine Ratio 14.4 (10-20) Glucose 146 H (70-99(Fasting)) mg/dl POC Glucose (70-99) mg/dl POC Glucose (other) 150 H 158 H (70-99) mg/dl Calcium 6.2 L (8.6-10.3) mg/dl Ionized Calcium (1.12-1.32) mmol/L Phosphorus (2.5-4.9) mg/dl Magnesium 2.3 (1.7-2.4) mg/dl Total Bilirubin (0.2-1.0) mg/dl Direct Bilirubin (0-0.2) mg/dl AST (13-39) U/L ALT (7-52) U/L Alkaline Phosphatase (34-104) U/L Ammonia (18-72) umol/L Total Creatine Kinase (30-223) U/L Total Protein (6.0-8.3) gm/dl Albumin (3.4-5.0) gm/dl Globulin (2.5-4.0) gm/dl Albumin/Globulin Ratio (0.9-2) Vitamin B1 (8-30) nmol/L PTH Intact (12.0-88.0) pg/ml PTH Related Protein (11-20) pg/mL Stl C. diff Tox B Gene (Neg) Misc Micro Test 08/24/24 08/24/24 08/24/24 Range/Units 08:59 08:10 06:37 WBC (4.8-10.8) K/ul RBC (4.70-6.10) M/uL Hgb (14.0-18.0) g/dl Hct (42.0-52.0) % MCV (80.0-100.0) fL MCH (25.0-34.0) pg MCHC (32.0-36.0) g/dL RDW Std Deviation (36.4-46.3) fL RDW Coeff of Eladio (11.5-14.5) % Plt Count (130-400) K/uL MPV (9.4-12.4) fL Immature Gran % (Auto) % Neut % (Auto) % Lymph % (Auto) % Powell % (Auto) % Eos % (Auto) % Baso % (Auto) % Neut # (Auto) (1.40-6.50) K/uL Lymph # (Auto) (1.20-3.40) K/uL Powell # (Auto) (0.11-0.59) K/uL Eos # (Auto) (0.00-0.50) K/uL Baso # (Auto) (0.00-0.20) K/uL Immature Gran # (Auto) (0.01-0.20) K/uL Absolute Nucleated RBC (0.00-0.12) K/uL Nucleated RBC % (auto) % Toxic Vacuolation Polychromasia Anisocytosis Target Cells Tear Drop Cells Sodium 143 (136-145) mmol/L Potassium 4.2 (3.5-5.1) mmol/L Chloride 114 H (98-107) mmol/L Carbon Dioxide 25 (21-32) mmol/L Anion Gap 4 (3-11) BUN 53 H (6-23) mg/dl Creatinine 3.75 H (0.6-1.4) mg/dl Est Cr Clr Drug Dosing 22.7 ml/min eGFR 17.10 BUN/Creatinine Ratio 14.1 (10-20) Glucose 153 H (70-99(Fasting)) mg/dl POC Glucose 150 H (70-99) mg/dl POC Glucose (other) 171 H (70-99) mg/dl Calcium 6.8 L (8.6-10.3) mg/dl Ionized Calcium (1.12-1.32) mmol/L Phosphorus (2.5-4.9) mg/dl Magnesium 2.3 (1.7-2.4) mg/dl Total Bilirubin (0.2-1.0) mg/dl Direct Bilirubin (0-0.2) mg/dl AST (13-39) U/L ALT (7-52) U/L Alkaline Phosphatase (34-104) U/L Ammonia (18-72) umol/L Total Creatine Kinase (30-223) U/L Total Protein (6.0-8.3) gm/dl Albumin (3.4-5.0) gm/dl Globulin (2.5-4.0) gm/dl Albumin/Globulin Ratio (0.9-2) Vitamin B1 (8-30) nmol/L PTH Intact 195.4 H (12.0-88.0) pg/ml PTH Related Protein (11-20) pg/mL Stl C. diff Tox B Gene (Neg) Misc Micro Test 08/24/24 08/24/24 08/24/24 Range/Units 04:47 04:14 03:34 WBC 16.79 H (4.8-10.8) K/ul RBC 2.90 L (4.70-6.10) M/uL Hgb 8.5 L (14.0-18.0) g/dl Hct 27.3 L (42.0-52.0) % MCV 94.1 (80.0-100.0) fL MCH 29.3 (25.0-34.0) pg MCHC 31.1 L (32.0-36.0) g/dL RDW Std Deviation 57.3 H (36.4-46.3) fL RDW Coeff of Eladio 19.5 H (11.5-14.5) % Plt Count 288 (130-400) K/uL MPV 9.6 (9.4-12.4) fL Immature Gran % (Auto) 5.7 % Neut % (Auto) 81.1 % Lymph % (Auto) 9.4 % Powell % (Auto) 3.5 % Eos % (Auto) 0.1 % Baso % (Auto) 0.2 % Neut # (Auto) 13.65 H (1.40-6.50) K/uL Lymph # (Auto) 1.57 (1.20-3.40) K/uL Powell # (Auto) 0.58 (0.11-0.59) K/uL Eos # (Auto) 0.01 (0.00-0.50) K/uL Baso # (Auto) 0.03 (0.00-0.20) K/uL Immature Gran # (Auto) 0.95 H (0.01-0.20) K/uL Absolute Nucleated RBC 0.37 H (0.00-0.12) K/uL Nucleated RBC % (auto) 2.2 % Toxic Vacuolation Polychromasia 1+ Anisocytosis Target Cells Tear Drop Cells Sodium 143 (136-145) mmol/L Potassium 3.5 (3.5-5.1) mmol/L Chloride 111 H (98-107) mmol/L Carbon Dioxide 26 (21-32) mmol/L Anion Gap 6 (3-11) BUN 54 H (6-23) mg/dl Creatinine 4.00 H (0.6-1.4) mg/dl Est Cr Clr Drug Dosing 21.1 ml/min eGFR 15.82 BUN/Creatinine Ratio 13.5 (10-20) Glucose 147 H (70-99(Fasting)) mg/dl POC Glucose 138 H 144 H (70-99) mg/dl POC Glucose (other) (70-99) mg/dl Calcium 5.6 L* (8.6-10.3) mg/dl Ionized Calcium 0.79 L (1.12-1.32) mmol/L Phosphorus 2.0 L (2.5-4.9) mg/dl Magnesium 1.9 (1.7-2.4) mg/dl Total Bilirubin 4.3 H (0.2-1.0) mg/dl Direct Bilirubin 2.9 H (0-0.2) mg/dl AST 247 H (13-39) U/L ALT 63 H (7-52) U/L Alkaline Phosphatase 409 H (34-104) U/L Ammonia (18-72) umol/L Total Creatine Kinase (30-223) U/L Total Protein 5.7 L (6.0-8.3) gm/dl Albumin 1.9 L (3.4-5.0) gm/dl Globulin (2.5-4.0) gm/dl Albumin/Globulin Ratio (0.9-2) Vitamin B1 (8-30) nmol/L PTH Intact (12.0-88.0) pg/ml PTH Related Protein (11-20) pg/mL Stl C. diff Tox B Gene (Neg) Misc Micro Test 08/24/24 08/24/24 08/24/24 Range/Units 02:45 01:39 00:28 WBC (4.8-10.8) K/ul RBC (4.70-6.10) M/uL Hgb (14.0-18.0) g/dl Hct (42.0-52.0) % MCV (80.0-100.0) fL MCH (25.0-34.0) pg MCHC (32.0-36.0) g/dL RDW Std Deviation (36.4-46.3) fL RDW Coeff of Eladio (11.5-14.5) % Plt Count (130-400) K/uL MPV (9.4-12.4) fL Immature Gran % (Auto) % Neut % (Auto) % Lymph % (Auto) % Powell % (Auto) % Eos % (Auto) % Baso % (Auto) % Neut # (Auto) (1.40-6.50) K/uL Lymph # (Auto) (1.20-3.40) K/uL Powell # (Auto) (0.11-0.59) K/uL Eos # (Auto) (0.00-0.50) K/uL Baso # (Auto) (0.00-0.20) K/uL Immature Gran # (Auto) (0.01-0.20) K/uL Absolute Nucleated RBC (0.00-0.12) K/uL Nucleated RBC % (auto) % Toxic Vacuolation Polychromasia Anisocytosis Target Cells Tear Drop Cells Sodium 142 (136-145) mmol/L Potassium 4.0 (3.5-5.1) mmol/L Chloride 111 H (98-107) mmol/L Carbon Dioxide 26 (21-32) mmol/L Anion Gap 5 (3-11) BUN 54 H (6-23) mg/dl Creatinine 4.12 H (0.6-1.4) mg/dl Est Cr Clr Drug Dosing 20.4 ml/min eGFR 15.27 BUN/Creatinine Ratio 13.1 (10-20) Glucose 148 H (70-99(Fasting)) mg/dl POC Glucose 150 H 158 H (70-99) mg/dl POC Glucose (other) (70-99) mg/dl Calcium 6.0 L (8.6-10.3) mg/dl Ionized Calcium (1.12-1.32) mmol/L Phosphorus (2.5-4.9) mg/dl Magnesium 2.0 (1.7-2.4) mg/dl Total Bilirubin (0.2-1.0) mg/dl Direct Bilirubin (0-0.2) mg/dl AST (13-39) U/L ALT (7-52) U/L Alkaline Phosphatase (34-104) U/L Ammonia (18-72) umol/L Total Creatine Kinase (30-223) U/L Total Protein (6.0-8.3) gm/dl Albumin (3.4-5.0) gm/dl Globulin (2.5-4.0) gm/dl Albumin/Globulin Ratio (0.9-2) Vitamin B1 (8-30) nmol/L PTH Intact (12.0-88.0) pg/ml PTH Related Protein (11-20) pg/mL Stl C. diff Tox B Gene (Neg) Misc Micro Test 08/23/24 08/23/24 08/23/24 Range/Units 23:47 22:49 21:49 WBC (4.8-10.8) K/ul RBC (4.70-6.10) M/uL Hgb (14.0-18.0) g/dl Hct (42.0-52.0) % MCV (80.0-100.0) fL MCH (25.0-34.0) pg MCHC (32.0-36.0) g/dL RDW Std Deviation (36.4-46.3) fL RDW Coeff of Eladio (11.5-14.5) % Plt Count (130-400) K/uL MPV (9.4-12.4) fL Immature Gran % (Auto) % Neut % (Auto) % Lymph % (Auto) % Powell % (Auto) % Eos % (Auto) % Baso % (Auto) % Neut # (Auto) (1.40-6.50) K/uL Lymph # (Auto) (1.20-3.40) K/uL Powell # (Auto) (0.11-0.59) K/uL Eos # (Auto) (0.00-0.50) K/uL Baso # (Auto) (0.00-0.20) K/uL Immature Gran # (Auto) (0.01-0.20) K/uL Absolute Nucleated RBC (0.00-0.12) K/uL Nucleated RBC % (auto) % Toxic Vacuolation Polychromasia Anisocytosis Target Cells Tear Drop Cells Sodium (136-145) mmol/L Potassium (3.5-5.1) mmol/L Chloride (98-107) mmol/L Carbon Dioxide (21-32) mmol/L Anion Gap (3-11) BUN (6-23) mg/dl Creatinine (0.6-1.4) mg/dl Est Cr Clr Drug Dosing ml/min eGFR BUN/Creatinine Ratio (10-20) Glucose (70-99(Fasting)) mg/dl POC Glucose 122 H 119 H 118 H (70-99) mg/dl POC Glucose (other) (70-99) mg/dl Calcium (8.6-10.3) mg/dl Ionized Calcium (1.12-1.32) mmol/L Phosphorus (2.5-4.9) mg/dl Magnesium (1.7-2.4) mg/dl Total Bilirubin (0.2-1.0) mg/dl Direct Bilirubin (0-0.2) mg/dl AST (13-39) U/L ALT (7-52) U/L Alkaline Phosphatase (34-104) U/L Ammonia (18-72) umol/L Total Creatine Kinase (30-223) U/L Total Protein (6.0-8.3) gm/dl Albumin (3.4-5.0) gm/dl Globulin (2.5-4.0) gm/dl Albumin/Globulin Ratio (0.9-2) Vitamin B1 (8-30) nmol/L PTH Intact (12.0-88.0) pg/ml PTH Related Protein (11-20) pg/mL Stl C. diff Tox B Gene (Neg) Misc Micro Test 08/23/24 08/23/24 08/23/24 Range/Units 20:50 19:46 18:57 WBC (4.8-10.8) K/ul RBC (4.70-6.10) M/uL Hgb (14.0-18.0) g/dl Hct (42.0-52.0) % MCV (80.0-100.0) fL MCH (25.0-34.0) pg MCHC (32.0-36.0) g/dL RDW Std Deviation (36.4-46.3) fL RDW Coeff of Eladio (11.5-14.5) % Plt Count (130-400) K/uL MPV (9.4-12.4) fL Immature Gran % (Auto) % Neut % (Auto) % Lymph % (Auto) % Powell % (Auto) % Eos % (Auto) % Baso % (Auto) % Neut # (Auto) (1.40-6.50) K/uL Lymph # (Auto) (1.20-3.40) K/uL Powell # (Auto) (0.11-0.59) K/uL Eos # (Auto) (0.00-0.50) K/uL Baso # (Auto) (0.00-0.20) K/uL Immature Gran # (Auto) (0.01-0.20) K/uL Absolute Nucleated RBC (0.00-0.12) K/uL Nucleated RBC % (auto) % Toxic Vacuolation Polychromasia Anisocytosis Target Cells Tear Drop Cells Sodium 142 (136-145) mmol/L Potassium 4.3 (3.5-5.1) mmol/L Chloride 110 H (98-107) mmol/L Carbon Dioxide 26 (21-32) mmol/L Anion Gap 6 (3-11) BUN 55 H (6-23) mg/dl Creatinine 4.14 H (0.6-1.4) mg/dl Est Cr Clr Drug Dosing 20.4 ml/min eGFR 15.18 BUN/Creatinine Ratio 13.3 (10-20) Glucose 119 H (70-99(Fasting)) mg/dl POC Glucose 108 H 114 H (70-99) mg/dl POC Glucose (other) 114 H (70-99) mg/dl Calcium 6.0 L (8.6-10.3) mg/dl Ionized Calcium 0.82 L (1.12-1.32) mmol/L Phosphorus (2.5-4.9) mg/dl Magnesium 2.1 (1.7-2.4) mg/dl Total Bilirubin (0.2-1.0) mg/dl Direct Bilirubin (0-0.2) mg/dl AST (13-39) U/L ALT (7-52) U/L Alkaline Phosphatase (34-104) U/L Ammonia (18-72) umol/L Total Creatine Kinase (30-223) U/L Total Protein (6.0-8.3) gm/dl Albumin (3.4-5.0) gm/dl Globulin (2.5-4.0) gm/dl Albumin/Globulin Ratio (0.9-2) Vitamin B1 (8-30) nmol/L PTH Intact (12.0-88.0) pg/ml PTH Related Protein (11-20) pg/mL Stl C. diff Tox B Gene (Neg) Misc Micro Test 08/23/24 08/23/24 08/23/24 Range/Units 17:52 16:50 15:54 WBC (4.8-10.8) K/ul RBC (4.70-6.10) M/uL Hgb (14.0-18.0) g/dl Hct (42.0-52.0) % MCV (80.0-100.0) fL MCH (25.0-34.0) pg MCHC (32.0-36.0) g/dL RDW Std Deviation (36.4-46.3) fL RDW Coeff of Eladio (11.5-14.5) % Plt Count (130-400) K/uL MPV (9.4-12.4) fL Immature Gran % (Auto) % Neut % (Auto) % Lymph % (Auto) % Powell % (Auto) % Eos % (Auto) % Baso % (Auto) % Neut # (Auto) (1.40-6.50) K/uL Lymph # (Auto) (1.20-3.40) K/uL Powell # (Auto) (0.11-0.59) K/uL Eos # (Auto) (0.00-0.50) K/uL Baso # (Auto) (0.00-0.20) K/uL Immature Gran # (Auto) (0.01-0.20) K/uL Absolute Nucleated RBC (0.00-0.12) K/uL Nucleated RBC % (auto) % Toxic Vacuolation Polychromasia Anisocytosis Target Cells Tear Drop Cells Sodium 143 (136-145) mmol/L Potassium 3.7 (3.5-5.1) mmol/L Chloride 109 H (98-107) mmol/L Carbon Dioxide 27 (21-32) mmol/L Anion Gap 7 (3-11) BUN 53 H (6-23) mg/dl Creatinine 4.17 H (0.6-1.4) mg/dl Est Cr Clr Drug Dosing 20.2 ml/min eGFR 15.05 BUN/Creatinine Ratio 12.7 (10-20) Glucose 122 H (70-99(Fasting)) mg/dl POC Glucose 139 H (70-99) mg/dl POC Glucose (other) 118 H (70-99) mg/dl Calcium 6.0 L (8.6-10.3) mg/dl Ionized Calcium (1.12-1.32) mmol/L Phosphorus (2.5-4.9) mg/dl Magnesium (1.7-2.4) mg/dl Total Bilirubin (0.2-1.0) mg/dl Direct Bilirubin (0-0.2) mg/dl AST (13-39) U/L ALT (7-52) U/L Alkaline Phosphatase (34-104) U/L Ammonia (18-72) umol/L Total Creatine Kinase (30-223) U/L Total Protein (6.0-8.3) gm/dl Albumin (3.4-5.0) gm/dl Globulin (2.5-4.0) gm/dl Albumin/Globulin Ratio (0.9-2) Vitamin B1 (8-30) nmol/L PTH Intact (12.0-88.0) pg/ml PTH Related Protein (11-20) pg/mL Stl C. diff Tox B Gene (Neg) Misc Micro Test 08/23/24 08/22/24 08/21/24 Range/Units 14:45 08:08 06:50 WBC (4.8-10.8) K/ul RBC (4.70-6.10) M/uL Hgb (14.0-18.0) g/dl Hct (42.0-52.0) % MCV (80.0-100.0) fL MCH (25.0-34.0) pg MCHC (32.0-36.0) g/dL RDW Std Deviation (36.4-46.3) fL RDW Coeff of Eladio (11.5-14.5) % Plt Count (130-400) K/uL MPV (9.4-12.4) fL Immature Gran % (Auto) % Neut % (Auto) % Lymph % (Auto) % Powell % (Auto) % Eos % (Auto) % Baso % (Auto) % Neut # (Auto) (1.40-6.50) K/uL Lymph # (Auto) (1.20-3.40) K/uL Powell # (Auto) (0.11-0.59) K/uL Eos # (Auto) (0.00-0.50) K/uL Baso # (Auto) (0.00-0.20) K/uL Immature Gran # (Auto) (0.01-0.20) K/uL Absolute Nucleated RBC (0.00-0.12) K/uL Nucleated RBC % (auto) % Toxic Vacuolation Polychromasia Anisocytosis Target Cells Tear Drop Cells Sodium (136-145) mmol/L Potassium (3.5-5.1) mmol/L Chloride (98-107) mmol/L Carbon Dioxide (21-32) mmol/L Anion Gap (3-11) BUN (6-23) mg/dl Creatinine (0.6-1.4) mg/dl Est Cr Clr Drug Dosing ml/min eGFR BUN/Creatinine Ratio (10-20) Glucose (70-99(Fasting)) mg/dl POC Glucose (70-99) mg/dl POC Glucose (other) 229 H (70-99) mg/dl Calcium (8.6-10.3) mg/dl Ionized Calcium (1.12-1.32) mmol/L Phosphorus (2.5-4.9) mg/dl Magnesium (1.7-2.4) mg/dl Total Bilirubin (0.2-1.0) mg/dl Direct Bilirubin (0-0.2) mg/dl AST (13-39) U/L ALT (7-52) U/L Alkaline Phosphatase (34-104) U/L Ammonia (18-72) umol/L Total Creatine Kinase (30-223) U/L Total Protein (6.0-8.3) gm/dl Albumin (3.4-5.0) gm/dl Globulin (2.5-4.0) gm/dl Albumin/Globulin Ratio (0.9-2) Vitamin B1 (8-30) nmol/L PTH Intact (12.0-88.0) pg/ml PTH Related Protein 23 H (11-20) pg/mL Stl C. diff Tox B Gene Negative Cdiff Gene (Neg) Misc Micro Test 08/19/24 08/17/24 Range/Units Unknown 06:53 WBC (4.8-10.8) K/ul RBC (4.70-6.10) M/uL Hgb (14.0-18.0) g/dl Hct (42.0-52.0) % MCV (80.0-100.0) fL MCH (25.0-34.0) pg MCHC (32.0-36.0) g/dL RDW Std Deviation (36.4-46.3) fL RDW Coeff of Eladio (11.5-14.5) % Plt Count (130-400) K/uL MPV (9.4-12.4) fL Immature Gran % (Auto) % Neut % (Auto) % Lymph % (Auto) % Powell % (Auto) % Eos % (Auto) % Baso % (Auto) % Neut # (Auto) (1.40-6.50) K/uL Lymph # (Auto) (1.20-3.40) K/uL Powell # (Auto) (0.11-0.59) K/uL Eos # (Auto) (0.00-0.50) K/uL Baso # (Auto) (0.00-0.20) K/uL Immature Gran # (Auto) (0.01-0.20) K/uL Absolute Nucleated RBC (0.00-0.12) K/uL Nucleated RBC % (auto) % Toxic Vacuolation Polychromasia Anisocytosis Target Cells Tear Drop Cells Sodium (136-145) mmol/L Potassium (3.5-5.1) mmol/L Chloride (98-107) mmol/L Carbon Dioxide (21-32) mmol/L Anion Gap (3-11) BUN (6-23) mg/dl Creatinine (0.6-1.4) mg/dl Est Cr Clr Drug Dosing ml/min eGFR BUN/Creatinine Ratio (10-20) Glucose (70-99(Fasting)) mg/dl POC Glucose (70-99) mg/dl POC Glucose (other) (70-99) mg/dl Calcium (8.6-10.3) mg/dl Ionized Calcium (1.12-1.32) mmol/L Phosphorus (2.5-4.9) mg/dl Magnesium (1.7-2.4) mg/dl Total Bilirubin (0.2-1.0) mg/dl Direct Bilirubin (0-0.2) mg/dl AST (13-39) U/L ALT (7-52) U/L Alkaline Phosphatase (34-104) U/L Ammonia (18-72) umol/L Total Creatine Kinase (30-223) U/L Total Protein (6.0-8.3) gm/dl Albumin (3.4-5.0) gm/dl Globulin (2.5-4.0) gm/dl Albumin/Globulin Ratio (0.9-2) Vitamin B1 335 H (8-30) nmol/L PTH Intact (12.0-88.0) pg/ml PTH Related Protein (11-20) pg/mL Stl C. diff Tox B Gene (Neg) Misc Micro Test See Scanned Report Diagnostic Findings Chest X-Ray 08/14/24 18:34 Chest radiograph, one view History: Chest pain Comparison: None Findings: Single AP view of the chest performed. No focal consolidation or pleural effusion. No pneumothorax. Right upper extremity PICC tip is at the superior atrial caval junction. Elevated right hemidiaphragm. The cardiomediastinal silhouette is within normal limits. Normal pulmonary vascularity. No evidence for lymphadenopathy. No visualized bony or soft tissue abnormality. Impression: Right upper extremity PICC as above. Otherwise no acute process. Electronically signed by Quintin Kapadia 08-14-2024 7:07 PM Abdomen/Pelvis CT 08/14/24 22:17 Exam(s): CT ABDOMEN + PELVIS Without Contrast EXAM: CT Abdomen and Pelvis Without Intravenous Contrast CLINICAL HISTORY: Reason for exam: juana. TECHNIQUE: Axial computed tomography images of the abdomen and pelvis without intravenous contrast. CTDI is 37.61 mGy and DLP is 1457.61 mGy-cm. Automated exposure control was utilized for the study. A dose lowering technique was utilized adhering to the principles of ALARA. COMPARISON: No relevant prior studies available. FINDINGS: Lung bases: Right lower lobe atelectasis or consolidation. Mild left basilar atelectasis. Trace right pleural effusion. Mediastinum: Small hiatal hernia. ABDOMEN: Liver: Marked hypoattenuation of the liver. Hepatomegaly, 25 cm craniocaudal. Gallbladder and bile ducts: Distended gallbladder. No obvious wall thickening or calcified stones. No ductal dilation. Pancreas: Unremarkable. No ductal dilation. Spleen: Unremarkable. No splenomegaly. Adrenals: Unremarkable. No mass. Kidneys and ureters: Mild nonspecific perinephric stranding. No hydronephrosis. Simple 2 cm left renal cyst. No follow-up of this simple cyst is necessary. Stomach and bowel: Fluid level in the rectum. Mild sigmoid diverticulosis. No obstruction. No mucosal thickening. PELVIS: Appendix: No findings to suggest acute appendicitis. Bladder: Sarmiento catheter in decompressed urinary bladder. No stones. Reproductive: Unremarkable as visualized. ABDOMEN and PELVIS: Intraperitoneal space: Minimal free fluid around the liver and in the pelvis. No free air. Bones/joints: Degenerative changes of the spine. No acute fracture. No dislocation. Soft tissues: Small bilateral inguinal hernias containing fat. Mild body wall edema, mostly in the right flank region. Vasculature: Unremarkable. No abdominal aortic aneurysm. Lymph nodes: Unremarkable. No enlarged lymph nodes. IMPRESSION: 1. Right lower lobe atelectasis or consolidation. Mild left basilar atelectasis. Trace right pleural effusion. 2. Hepatic steatosis. Hepatomegaly. 3. Minimal free fluid around the liver and in the pelvis. 4. Fluid level in the rectum. May reflect diarrhea. 5. Mild sigmoid diverticulosis. Electronically signed by: eDbbie Benavides M.D. 08/15/24 01:[address] 08/14/24 22:17 Exam(s): CT HEAD Without Contrast EXAM: CT Head Without Intravenous Contrast CLINICAL HISTORY: Reason for exam: AMS. TECHNIQUE: Axial computed tomography images of the head/brain without intravenous contrast. CTDI is 53.87 mGy and DLP is 938.3 mGy-cm. Automated exposure control was utilized for the study. A dose lowering technique was utilized adhering to the principles of ALARA. COMPARISON: No relevant prior studies available. FINDINGS: Artifacts: Some motion artifact. Brain: Mild volume loss with prominent ventricles and sulci. No hemorrhage. No significant white matter disease. Ventricles: See above. Bones/joints: Unremarkable. No acute fracture. Soft tissues: Unremarkable. Sinuses: Unremarkable as visualized. No acute sinusitis. Mastoid air cells: Unremarkable as visualized. No mastoid effusion. IMPRESSION: No acute findings in the head/brain. Electronically signed by: Debbie Benavides M.D. 08/15/24 00:23 AM Venous Doppler Study 08/15/24 00:00 BILATERAL LOWER EXTREMITY VENOUS DOPPLER CLINICAL HISTORY: b/l lower ext erythema. dvt? COMPARISON STUDY: No previous studies for comparison. TECHNIQUE: Sonography of the deep venous system of the bilateral lower extremities was performed. Compression and augmentation were evaluated. FINDINGS: The bilateral common femoral, superficial femoral and popliteal veins were compressible. Augmentation was normal. Flow was shown within the deep calf vessels. IMPRESSION: No evidence of deep venous thrombus within the bilateral lower extremities. ACT 112: Negative or not required by law. Electronically signed by: Dewey Jorge M.D. 08/15/2024 9:04 AM Foot X-Ray 08/15/24 10:07 XR foot RT min 3V routine CLINICAL HISTORY: Osteomyelitis right calcaneus COMPARISON: None FINDINGS: 3 views of the right foot demonstrate a prior great toe ray amputation at the level of the distal first metatarsal. There is exuberant callus surrounding a second metatarsal midshaft fracture. The lateral view suggests a plantar soft tissue ulcer. There is also some soft tissue prominence over the heel. The calcaneus is intact with no radiographic evidence of calcaneal osteomyelitis. IMPRESSION: No definite radiographic evidence of osteomyelitis as described. ACT 112: Negative or not required by law. Electronically signed by: Deanna Rodríguez M.D. 08/15/2024 10:49 AM Duplex Scan Lower Extremity Artery 08/15/24 16:24 Exam(s): US ARTERIAL RIGHT LOWER EXTREMITY EXAM: US Duplex Right Lower Extremity Arteries CLINICAL HISTORY: Slow wound healing diabetic ulcer right foot. TECHNIQUE: Real-time duplex ultrasound scan of the right lower extremity arteries integrating B-mode two-dimensional vascular structure, Doppler spectral analysis and color flow Doppler imaging. COMPARISON: No relevant prior studies available. FINDINGS: Right common femoral artery: Multiphasic waveforms. No significantly elevated duplex velocities. The peak systolic velocity is 103 cm/s. Right superficial femoral artery: Multiphasic waveforms. No significantly elevated duplex velocities. The peak systolic velocities ranging between 123 cm/s proximally, 113 cm/s at the mid segment and 107 cm/s distally. Right popliteal artery: Multiphasic waveforms. No significantly elevated duplex velocities. The peak systolic velocities between 99 and 93 cm/s. Right calf/foot arteries: Right trifurcation: The right posterior tibial artery is patent with multiphasic waveforms and peak systolic velocities between 86, 102 and 110 cm/s. The peroneal artery was interrogated with biphasic to multiphasic waveforms and peak systolic velocities between 90 and 74 cm/s. The anterior tibial artery is patent with multiphasic waveforms and peak systolic velocities between 72 and 103 cm/s. The dorsalis pedis artery demonstrates multiphasic waveforms. Other arteries: Right profunda femoral artery: Biphasic waveforms. No significantly elevated duplex velocities. The peak systolic velocity is 112 cm/s. Soft tissues: Unremarkable. IMPRESSION: Negative right lower extremity arterial evaluation. No occlusion or significant hemodynamic stenosis with multiphasic waveforms throughout. Electronically signed by: Donald Head MD 08/15/24 21:45 PM Brain MRI 08/16/24 10:21 Exam(s): MRI HEAD Without Contrast EXAM: MR Head Without Intravenous Contrast CLINICAL HISTORY: Altered mental status. TECHNIQUE: Magnetic resonance images of the head/brain without intravenous contrast in multiple planes. COMPARISON: CT head without contrast performed 08/14/2024 FINDINGS: Limitations: There is motion artifact, which degrades image quality on multiple sequences. Brain: Diffusion-weighted imaging is negative for acute or subacute infarct. No definite intracranial hemorrhage. No significant mass- effect. No cortical infarct. Ventricles: Unremarkable. No ventriculomegaly. Bones/joints: Unremarkable. No acute fracture. Sinuses: Unremarkable as visualized. No acute sinusitis. Mastoid air cells: Unremarkable as visualized. No mastoid effusion. Orbits: Unremarkable as visualized. IMPRESSION: No evidence of acute or subacute infarct. Electronically signed by: Donald Head MD 08/16/24 23:[address] 08/17/24 13:23 CT head/brain wo con CLINICAL HISTORY: Altered mental status. TECHNIQUE: Multiple axial CT images of the head were obtained without contrast. Sagittal and coronal reconstructions were done. A dose lowering technique was utilized adhering to the principles of ALARA. CT DOSE: 2199.31 mGy.cm COMPARISON: 08/14/2024 FINDINGS: Some motion degradation is present. The been no significant interval change since the prior examination. There is no intra-axial or extra-axial fluid collection, hemorrhage, or mass. There is no midline shift. The ventricles and sulci are age-appropriate. The bone windows are grossly negative. IMPRESSION: Stable exam; no acute intracranial process identified. ACT 112: Negative or not required by law. The above report was generated using voice recognition software. It may contain grammatical, syntax or spelling errors. Electronically signed by: Deanna Rodríguez M.D. 08/17/2024 3:22 PM Chest X-Ray 08/17/24 13:50 XR chest 1V portable CLINICAL HISTORY: Hypoxia COMPARISON STUDY: 08/14/2024 FINDINGS: The study is compromised by respiratory motion. There is a right-sided PICC line with the tip not visible. There is continued elevation of the right hemidiaphragm with adjacent discoid atelectasis. The left lung is grossly clear. Mild cardiomegaly and pulmonary vascular congestion are persistent. IMPRESSION: Stable exam; no acute process identified. ACT 112: Negative or not required by law. Electronically signed by: Deanna Rodríguez M.D. 08/17/2024 3:10 PM Abdomen/Pelvis CT 08/17/24 13:57 CT OF THE ABDOMEN AND PELVIS WITHOUT CONTRAST CLINICAL HISTORY: Abdominal pain. COMPARISON STUDY: CT of the abdomen and pelvis August 14, 2024. TECHNIQUE: Axial images of the abdomen and pelvis were obtained without IV contrast. Images were reviewed in the axial, sagittal, and coronal planes. Automated exposure control was utilized for the study. A dose lowering technique was utilized adhering to the principles of ALARA. FINDINGS: Small right and trace left pleural effusions are present. Subpleural opacities favor atelectasis. This exam is compromised given motion artifact and lack of IV contrast. There is severe hepatic steatosis. Hepatomegaly is noted. There is no pneumatosis, free air or portal venous gas. Small amount of ascites within the pelvis is present. Unenhanced images of the spleen, adrenal glands, kidneys and pancreas are unremarkable with exception of a suspected left lower pole renal cyst. There is no evidence for a bowel obstruction. A Sarmiento balloon within the bladder is present. Body wall edema suggesting anasarca. No fluid collections are identified. There are no urinary calculi. There is no hydronephrosis. There is no lymphadenopathy. No peripancreatic or pericholecystic infiltration is present. IMPRESSION: 1. Exam compromised given lack of IV contrast and motion artifact. 2. No bowel obstruction. 3. Severe hepatic steatosis. Hepatomegaly. 3. Anasarca. Small right and trace left pleural effusions. Small amount of ascites within the pelvis. ACT 112: Negative or not required by law. Electronically signed by: Dewey Jorge M.D. 08/17/2024 3:37 PM KUB X-Ray 08/18/24 11:40 EXAM: Radiograph of the Abdomen 1 View INDICATION: Nasogastric tube placement. TECHNIQUE: Frontal supine view of the abdomen/pelvis. Image obtained at 11:36 AM. COMPARISON: No relevant prior studies available. FINDINGS: Limitations: None. Lower thorax: Right diaphragmatic elevation/eventration with adjacent compressive atelectasis. Large cardiac shadow. Gastrointestinal tract: No aerated intestinal loops seen in the upper abdomen. Organs: Visualized organ shadows appear grossly normal. Bones/joints: No fracture, erosion or dislocation. Soft tissues: No abnormality noted. No radiopaque foreign body noted. Tubes, lines and devices: Nasogastric tube terminates in the gastric body. IMPRESSION: Nasogastric tube terminates in the gastric body. ACT 112: Negative or not required by law. Electronically signed by Snehal Chappell 08-18-2024 11:59 AM Chest X-Ray 08/19/24 04:44 EXAM: XR chest 1V portable CLINICAL HISTORY: Tachypnea. TECHNIQUE: An X-ray image of the chest is obtained in AP projection. COMPARISON: XR chest, 08/17/2024. XR KUB/Abdomen 08/18/2024. FINDINGS: NG tube noted in situ. The tip is seen below the hemidiaphragm. Unchanged. Right PICC is noted. The tip is seen in the cavoatrial junction. Pulmonary Parenchyma: Slight interval regression of previously noted bilateral mild pleural effusion/thickening. Small right basilar linear opacities. This could be due to atelectasis. Elevation of right hemidiaphragm. Heart and Mediastinum: Increased cardiothoracic ratio. This could be projectional. Perihilar vascular congestion. No mediastinal widening or masses. No hilar or mediastinal lymphadenopathy. Bony Thorax: Bony thorax appears intact without fractures or deformities. Soft Tissues: Soft tissues overlying the chest wall are unremarkable. IMPRESSION: 1. NG tube noted in situ. Unchanged. 2. Right PICC noted in situ. Unchanged. 3. Slight interval regression of previously noted bilateral mild pleural effusion/thickening. 4. Small right basilar opacities. This could be due to atelectasis. The possibility of evolving infection or inflammatory process cannot be excluded. Need clinical correlation. Unchanged. 5. Elevation of right hemidiaphragm. Unchanged. Electronically signed by Rajani Jenkins 08-19-2024 06:25 AM Gallbladder Ultrasound 08/19/24 09:14 EXAM: US Abdomen Limited Gallbladder INDICATION: Trace ascites. TECHNIQUE: Real-time ultrasound of the gallbladder with image documentation. COMPARISON: No relevant prior studies available. FINDINGS: Liver: Enlarged to 24 cm long. Markedly echogenic. Gallbladder: No gallstones, wall thickening or surrounding fluid. Common bile duct: No significant abnormality noted. No stones. No dilation. Pancreas: Obscured by gas. Free fluid: Trace ascites noted. IMPRESSION: 1. Trace ascites. 2. Normal sonographic appearance of the gallbladder. 3. Large fatty liver. ACT 112: Negative or not required by law. Electronically signed by Snehal Chappell 08-19-2024 10:24 AM Chest X-Ray 08/19/24 21:03 Exam(s): XR CXR 1 VIEW EXAM: XR Chest, 1 View CLINICAL HISTORY: sob. TECHNIQUE: Frontal view of the chest. COMPARISON: 0508 hrs. FINDINGS: Lungs: Stable asymmetric elevation of the right hemidiaphragm. Improved lung expansion. Similar to slightly improved subsegmental changes involving the right perihilar and infrahilar region. The left lung is now well aerated. The pulmonary vasculature appears slightly less prominent/crowded. Pleural space: Unremarkable. No pneumothorax. No large pleural effusion. Heart: The cardiac silhouette remains prominent. Mediastinum: The mediastinal contours are thought to be stable, accounting for obliquity, less prominent. Bones/joints: Unremarkable. No acute fracture. Tubes, lines and devices: Nasogastric tube tip cannot be seen but is below the diaphragm. A right arm PICC is identified with tip in the superior right atrium, stable. IMPRESSION: Stable asymmetric elevation of the right hemidiaphragm. Improved lung expansion. Similar to slightly improved subsegmental changes involving the right perihilar and infrahilar region. The left lung is now well aerated. The pulmonary vasculature appears slightly less prominent/crowded. No pneumothorax. Electronically signed by: Donald Head MD 08/19/24 23:[address] 08/19/24 22:11 Exam(s): CT HEAD Without Contrast EXAM: CT Head Without Intravenous Contrast CLINICAL HISTORY: ams, coagulopathy. TECHNIQUE: Axial computed tomography images of the head/brain without intravenous contrast. CTDI is 95.63 mGy and DLP is 1574.9 mGy-cm. Automated exposure control was utilized for the study. A dose lowering technique was utilized adhering to the principles of ALARA. COMPARISON: CT head without contrast 08/14/2024; MRI to 2024 FINDINGS: Limitations: There is motion artifact, despite repeated imaging at times, which degrades image quality on multiple image slices. Brain: No definite intracranial hemorrhage; evaluation for subtle extra-axial pathology along the margins of the parenchyma is limited in regions of streak motion artifact. No significant mass effect identified. No significant white matter disease. Ventricles: No midline shift or significant effacement of the ventricles. Bones/joints: No definite skull fracture. Soft tissues: Unremarkable. Sinuses: Unremarkable as visualized. No acute sinusitis. Mastoid air cells: Unremarkable as visualized. No mastoid effusion. Tubes, lines and devices: A nasogastric tube is noted in the right nasopharynx. IMPRESSION: Accounting for limitations with motion artifact, no definite acute intracranial process identified. Electronically signed by: Donald Head MD 08/19/24 23:32 PM Chest X-Ray 08/20/24 03:20 EXAM: XR chest 1V portable CLINICAL HISTORY: cough, bile. TECHNIQUE: An X-ray image of the chest is obtained in AP projection. COMPARISON: 08/19/2024 FINDINGS: NG tube noted in situ. The tip is seen below the hemidiaphragm. Unchanged. Right PICC is noted. The tip is seen in the cavoatrial junction. Pulmonary Parenchyma: Slight stable appearance of bilateral mild pleural effusion/thickening. Small right basilar linear opacities. This could be due to atelectasis. Elevation of right hemidiaphragm. Heart and Mediastinum: Increased cardiothoracic ratio. This could be projectional. Perihilar vascular congestion. No mediastinal widening or masses. No hilar or mediastinal lymphadenopathy. Bony Thorax: Bony thorax appears intact without fractures or deformities. Soft Tissues: Soft tissues overlying the chest wall are unremarkable. IMPRESSION: 1. NG tube noted in situ. Unchanged. 2. Right PICC noted in situ. Unchanged. 3. Stable appearance of previously noted bilateral mild pleural effusion/thickening. 4. Small right basal opacities, unchanged, could be due to atelectasis. The possibility of evolving infection or inflammatory process cannot be excluded. Need clinical correlation. 5. Elevation of right hemidiaphragm. Unchanged. Electronically signed by Rajani Jenkins 08-20-2024 05:22 AM Chest X-Ray 08/20/24 21:08 Exam(s): XR CXR 1 VIEW EXAM: XR Chest, 1 View CLINICAL HISTORY: Reason for exam: sob. TECHNIQUE: Frontal view of the chest. COMPARISON: 08/20/2024 FINDINGS: Lungs: Volume loss in the right lung. No interstitial edema. Left lung is clear. Pleural space: No pleural effusion. No pneumothorax. Heart: Unremarkable. No cardiomegaly. Tubes, lines and devices: Esophagogastric tube terminates below the diaphragm. Right upper extremity PICC terminates within the right atrium. Upper abdomen: Elevated right hemidiaphragm. IMPRESSION: No significant interval change. Electronically signed by: Ken Goldstein MD 08/20/24 22:05 PM Chest X-Ray 08/21/24 07:39 EXAM: XR chest 1V portable CLINICAL HISTORY: check PICC line placement. TECHNIQUE: An X-ray image of the chest is obtained in AP projection. COMPARISON: Prior study dated 08/20/2024 FINDINGS: NG tube noted in situ. The tip is seen below the hemidiaphragm. Unchanged. Right PICC is noted. The tip is seen in the cavoatrial junction. Pulmonary Parenchyma: Small right basal linear opacities. This could be due to atelectasis. Elevation of right hemidiaphragm. Obscured both costophrenic angles Heart and Mediastinum: Increased cardiothoracic ratio. This could be projectional. Perihilar vascular congestion. No mediastinal widening or masses. No hilar or mediastinal lymphadenopathy. Bony Thorax: Bony thorax appears intact without fractures or deformities. Soft Tissues: Soft tissues overlying the chest wall are unremarkable. IMPRESSION: 1. NG tube noted in place. The tip is seen below the hemidiaphragm. Unchanged. 2. Right PICC is noted with tip is seen in the cavoatrial junction. (unchanged) 3. Small right basal linear opacities. This could be due to atelectasis. 4. Elevation of right hemidiaphragm (unchanged) 5. Perihilar vascular congestion. 6. No interval changes. Electronically signed by Rajani Jenkins 08-21-2024 08:59 AM Chest X-Ray 08/21/24 17:47 INDICATION: Intubation TECHNIQUE: Frontal radiograph of the chest. COMPARISON: Radiograph from earlier the same day FINDINGS/IMPRESSION: Right pleural effusion with atelectasis/airspace disease, slightly worsened from prior. No pneumothorax. Left lung is clear. No acute fracture. Endotracheal tube tip approximately 3.3 cm above the mauricio. Enteric tube extends below the diaphragm. Right-sided PICC line catheter tip in the superior vena cava. Electronically signed by Elvin Urias 08-21-2024 6:[address] 08/21/24 22:35 EXAM: CT chest diagnostic wo con CLINICAL HISTORY: Cardiac arrest, hypoxemia TECHNIQUE: Contiguous axial CT images of the chest were acquired without administration of intravenous contrast. Coronal and sagittal reconstructions were obtained. One of the following dose reduction techniques were utilized for this exam: Automated exposure control, adjustment of the mA and/or kV according to patient size, use of iterative reconstruction. COMPARISON: CR 08/21/2024 FINDINGS: Endotracheal tube is approximately 2.5 cm from mauricio. Nasogastric tube is appropriately placed. Lungs: Mild right sided pleural effusion with subpleural consolidation and collapse in right lower lobe. Minimal left sided pleural effusion. Few atelectatic bands in both lungs. Right hemidiaphragm is raised, possible eventration/palsy. Mediastinum: No mediastinal mass or abnormal lymphadenopathy. The heart size is within normal limits. Trachea and Main Bronchi: The trachea and main bronchi are patent without evidence of obstruction or abnormality. Chest Wall: The chest wall is unremarkable with no evidence of soft tissue or bony abnormalities. Bone: Degenerative changes in thoracic spine. Upper Abdomen: Hepatic steatosis noted. IMPRESSION: Endotracheal tube is approximately 2.5 cm from mauricio. Borderline low position. Nasogastric tube is appropriately placed. Mild right sided pleural effusion with subpleural consolidation and collapse in right lower lobe. Possibly related to cardiac arrest. Minimal left sided pleural effusion. Few atelectatic bands in both lungs. Right hemidiaphragm is raised, possible eventration/palsy. Electronically signed by Rajani Jenkins 08-22-2024 01:[address] 08/21/24 22:35 EXAM: CT head/brain wo con CLINICAL HISTORY: Cardiac arrest. Encephalopathy. TECHNIQUE: An axial non-contrast CT scan of the brain was performed from the skull base to the high parietal region. One of the following dose reduction techniques were utilized for this exam: Automated exposure control, adjustment of the mA and/or kV according to patient size, use of iterative reconstruction. COMPARISON: 08/19/2024 FINDINGS: There are tiny ill-defined [id number] areas noted in the subcortical and periventricular white matter bilaterally, suggestive of microvascular ischemic changes. The ventricular system, cortical sulci, and basal cisterns are prominent consistent with senile changes. The visualized brain parenchyma shows normal appearance. Santillan-white matter differentiation is maintained. No midline shifts or deformity. No intracerebral or extra axial hematoma. Normal CT appearance of the posterior fossa structures namely the cerebellar hemispheres, brainstem and cerebellar peduncles. The cerebello-pontine angles are clear. The osseous structures in the skull base are unremarkable. No definite calvarium fractures. The scanned paranasal sinuses are clear. Bilateral mastoid air cells appear unremarkable. Postsurgical atlas vertebra fixation. IMPRESSION: 1. No definite acute abnormality detected on plain CT head. Recommended MRI if clinically warranted 2. Chronic microvascular ischemic changes and senile cortical atrophy 3. No significant interval changes since previous study. Electronically signed by Rajani Jenkins 08-22-2024 01:36 AM Chest X-Ray 08/22/24 09:25 XR chest 1V portable CLINICAL HISTORY: s/p RIGHT IJ CVL COMPARISON STUDY: 08/21/2024 FINDINGS: Endotracheal tube tip is stable at the thoracic inlet. Nasogastric tube tip is off the film inferiorly. Interval right central catheter tip is at the cavoatrial junction. Stable right PICC. No pneumothorax. Heart size and pulmonary vasculature are normal. There is mild stranding at the right lung base, improved. IMPRESSION: 1. No pneumothorax. 2. Mild stranding right lung base, improved. ACT 112: Negative or not required by law. Electronically signed by: Morgan Medina M.D. 08/22/2024 9:46 AM Chest X-Ray 08/24/24 08:47 XR chest 1V portable CLINICAL HISTORY: f/u COMPARISON STUDY: 08/22/2024 through 08/14/2024 FINDINGS: Endotracheal tube tip is at the thoracic inlet. Nasogastric tube tip is off the field of view inferiorly. Right central catheter is stable. There is stable cardiomegaly without pulmonary vascular congestion. There is stable to increased prominent elevation of the right hemidiaphragm with grossly stable consolidation at the right lower lung. No pneumothorax. IMPRESSION: Stable to mildly increased prominent elevation of the right hemidiaphragm with grossly stable consolidation at the right lower lung. ACT 112: Negative or not required by law. Electronically signed by: Morgan Medina M.D. 08/24/2024 9:35 AM Liver Ultrasound 08/24/24 16:04 EXAM: US liver CLINICAL HISTORY: elevated lfts TECHNIQUE: An ultrasound examination of the limited abdomen was performed. Difficult portable examination as the patient was unable to move and intubated. COMPARISON: Ultrasound dated 08/19/[address] dated 08/18/2024. FINDINGS: Difficult portable examination as the patient was unable to move and intubated. The pancreas is seen prominent with a hypoechoic heterogeneous echo texture. The liver is enlarged in size, measuring 24.2 cm with increased parenchymal echogenicity. No definite focal lesion seen within the liver. The gallbladder is seen distended with normal wall thickness measuring 0.23 cm. Mild pericholecystic edema. No definite sludge or stones seen within the gallbladder. The common bile duct is not dilated, measuring 0.29-0.41 cm. The right kidney is seen measuring 13.8 cm with no definite hydronephrosis or calculi seen within. Mild perihepatic ascites is noted. IMPRESSION: 1. Prominent pancreas with heterogeneous hyperechoic echotexture. This could be due to inflammatory process. Need clinical correlation. 2. Mild pericholecystic edema. This could be due to reactionary due to ascites or adjacent inflammatory process. New finding. 3. Hepatic steatosis. Unchange. 4. Mild perihepatic ascites. Unchanged. 5. Otherwise, no significant interval changes. Electronically signed by Rajani Jenkins 08-25-2024 03:[address] 08/25/24 12:34 CT OF THE HEAD WITHOUT CONTRAST CLINICAL HISTORY: anoxic injury ? COMPARISON STUDY: Head CT August 22, 2024. CT DOSE: 1250.21 mGy.cm TECHNIQUE: Helical axial images of the head were obtained without IV contrast. Automated exposure control was utilized for the study. A dose lowering technique was utilized adhering to the principles of ALARA. FINDINGS: This exam is moderately compromised by motion artifact. No acute intracranial hemorrhage, midline shift or mass effect is present. Ventricular system is normal. Basal cisterns are patent. There are no extra-axial collections. Santillan-white differentiation is grossly maintained. There are no findings to suggest acute dural sinus thrombosis or acute territorial infarct. IMPRESSION: 1. No acute intracranial findings. 2. Exam moderately compromised by motion artifact. However, no CT evidence for anoxic injury. ACT 112: Negative or not required by law. Electronically signed by: Dewey Jorge M.D. 08/25/2024 1:30 PM Chest X-Ray 08/26/24 06:00 EXAM: XR chest 1V portable CLINICAL HISTORY: Eval tubes/lines/lung [place] while intubated TECHNIQUE: An X-ray image of the chest is obtained in AP projection. COMPARISON: 08/24/2024 FINDINGS: ETT with its tip 3.0 cm above the mauricio. NG tube noted in situ. The tip is seen below the hemidiaphragm. Right CVL is noted. The tip is seen in the cavoatrial junction. Pulmonary Parenchyma: Right hemidiaphragm is raised. Right CP angle is obliterated may favor pleural reaction. Numerous chest tubes are appreciated. Increased vascular markings are noted in bilateral perihilar regions may favor vascular congestion. Heart and Mediastinum: Cardiac size is enlarged. No mediastinal widening or masses. No hilar or mediastinal lymphadenopathy. Bony Thorax: Bony thorax appears intact without fractures or deformities. Soft Tissues: Soft tissues overlying the chest wall are unremarkable. IMPRESSION: 1. ETT with its tip 3.0 cm above the mauricio. 2. NG tube noted in situ. The tip is seen below the hemidiaphragm. 3. Right CVL is noted. The tip is seen in the cavoatrial junction. 4. Right hemidiaphragm is elevated. 5. Right CP angle is obliterated may favor pleural reaction. 6. No significant interval change. Electronically signed by Rajani Jenkins 08-26-2024 08:18 AM Brain MRI 08/26/24 09:36 Technique: Multiple T1 and T2-weighted magnetic resonance images were obtained of the brain without gadolinium contrast Comparison is made with a head CT dated 08/21/2024 Findings: There is no sign of acute or old infarction with normal-appearing diffusion weighted images. No definite focus of demyelination is seen. There is mild diffuse cerebral atrophy No definite mass lesion is seen on this noncontrast study. There is no intracranial hemorrhage or other fluid collection. No midline shift or other form of herniation is seen. There is no hydrocephalus. Normal flow-voids are seen within the arteries of the [id number]. The orbits and paranasal sinuses appear normal. There is opacification of the mastoid air cells bilaterally Impression: 1. No sign of infarction or mass lesion 2. Bilateral mastoid air cell opacification, concerning for inflammatory mastoiditis Electronically signed by Rajan Major 08-26-2024 2:14 PM Chest X-Ray 08/27/24 06:00 EXAM: XR chest 1V portable CLINICAL HISTORY: eval tubes/lines/lung [place] while intubated TECHNIQUE: An X-ray image of the chest is obtained in 1 AP projection. COMPARISON: 08/26/2024 CR FINDINGS: ETT with its tip 3.4 cm above the mauricio. NG tube noted in situ. The tip is seen below the hemidiaphragm. Right CVL is noted. The tip is seen in the cavoatrial junction. Pulmonary Parenchyma: Right hemidiaphragm is raised with Right costophrenic angle is obliterated, may favor pleural effusion with underlying collapse. Numerous chest tubes are appreciated. Increased vascular markings are noted in bilateral perihilar regions, which may favor vascular congestion. Heart and Mediastinum: Cardiac size is enlarged. No mediastinal widening or masses. No hilar or mediastinal lymphadenopathy. Bony Thorax: Bony thorax appears intact without fractures or deformities. Soft Tissues: Soft tissues overlying the chest wall are unremarkable. IMPRESSION: 1. ETT with its tip 3.4 cm above the mauricio. 2. NG tube noted in situ. The tip is seen below the hemidiaphragm. 3. Right CVL is noted. The tip is seen in the cavoatrial junction. 4. Findings suggesting pleural effusion with underlying collapse. 5. No significant interval change. Electronically signed by Rajani Jenkisn 08-27-2024 07:43 AM PG Care Time/CCT Total # of Minutes Spent Total Time Spent with Patient: Total time spent is greater than 50% in coordination of care (as documented) at patient's floor/unit and/or counseling patient: I spent 130 minutes overall addressing this case: 15 min in medical data review/discussion with referring provider(s) and/or preparation for the visit 20 min in direct interaction with the patient/exam 60 min in Advance Care Planning/Goals of Care discussions as detailed above in note (must be >16min) 15 min in subsequent review and synthesis of assessment and plan 20 min communicating with other providers regarding the patient's case: primary, GRAPHICS EDITOR, care mgt, nursing Advanced Care Planning 16687 Advanced Care Planning 30 Min 61907 Advanced Care Planning Additional 30 [place] [address] IN/OBS CONSULT LVL 5,80M (25 - SIGNIFICANT, SEPARATELY IDENTIFIABLE ) Patient Type New Medical Decision Making High Complexity Diagnoses Dyspnea and respiratory abnormalities R06.00; R06.89 Altered mental status R41.82 Weakness generalized R53.1 Discussion about advance care planning held with family member Z71.0 Palliative care by specialist Z51.5 Additional Codes Advanced Care Planning - 16901 Advanced Care Planning 30 Min: 11508 Advanced Care Planning 30 Min ([id number]) Advanced Care Planning - 85547 Advanced Care Planning Additional 30 Min: 62969 Advanced Care Planning Additional 30 Min ([id number]) Comment [id number], [id number]
[2024-08-30] MEDS ORDERED: MoRPHine SULFATE 10 MG/0.5 ML UDP SL PRN (13:27)
[2024-08-30] MEDS ORDERED: HALOPERIDOL ORAL SOLN 2 MG/ML PO PRN (13:27)
[2024-08-30] MEDS ORDERED: GLYCOPYRROLATE 0.2 MG/ML VIAL IV PRN (13:27)
[2024-08-30] MEDS: MoRPHine SULFATE 2 MG/ML CARP IV PRN (17:44)
[2024-08-30] MEDS: LORazepam 2 MG/1 ML VIAL IV PRN (19:42)
[2024-08-31] MEDS: LORazepam 2 MG/1 ML VIAL IV PRN ×2 (03:22→08:07)
[2024-08-31] MEDS: MoRPHine SULFATE 4 MG/ML 1 ML CARP\\VIAL IV STA (04:13)
[2024-08-31] MEDS: MoRPHine SULFATE 4 MG/ML 1 ML CARP\\VIAL IV PRN (05:17)
[2024-08-31] MEDS ORDERED: MoRPHine SULFATE 2 MG/ML CARP IV PRN (10:52)
--- NOTE | 2024-08-31 11:46 | Hospitalist Progress Note ---
Date of Service August 31, 2024 Assessment & Plan (1) Cardiac arrest: (2) Encephalopathy chronic: (3) Cellulitis of left lower extremity: (4) JUANA (acute kidney injury): (5) Cellulitis of right lower extremity: (6) Diabetic foot ulcer: Plan 63-yo M w/ type 2 diabetes, diabetic ulcer of right midfoot, dyslipidemia, hypophosphatemia, hypertension, history of C. difficile colitis, oral thrush, cellulitis of right leg, abscess of right foot, absent seizures, history of lung cancer, was sent in by [facility] rehab because of confusion and fevers. Pt with extended hospitalization course initially being treated for sepsis in the setting of lower extremity cellulitis and a diabetic foot ulcer and acute metabolic encephalopathy. He also had a severe JUANA on admission with Cr of 4.54 on admission for which Nephrology was consulted. They also managed his hypernatremia and hypocalcemia that subsequently developed as well. On 08/21/24, a code blue was called after pt became bradycardic and tachypneic. He required CPR and subsequent intubation and was transferred to the ICU. He was extubated on 08/27/24 with the [employer] noting that his prognosis was poor. In particular it was noted "...At this point time I would favor discontinuation of sedation and liberation from mechanical ventilator. If the patient is unable to maintain respirations or protect airway, consideration for transition to comfort care measures might be appropriate. This will be dis cussed with the family in detail. Palliative care consultation may be appropriate as well..." After discussion with the family on 08/29/24, a palliative care consult was placed for further recommendations. Family meeting planned for 08/30/24. Pt was transitioned to Comfort Measures Only on 08/30/24. Started on morphine drip on 08/31/24 He was previously treated for the following: Sepsis Bilateral lower extremity cellulitis Right foot diabetic ulcer Recently at [facility] was placed on IV Vanco for 6 weeks until September 17 to treat his osteomyelitis though MRI was negative and abscess was I&D by podiatry at [facility] Right Foot X ray: No definite radiographic evidence of osteomyelitis as described. Venous Doppler:No evidence of deep venous thrombus within the bilateral lower extremities. Arterial Doppler:Negative right lower extremity arterial evaluation. No occlusion or significant hemodynamic stenosis with multiphasic waveforms throughout. CT ABD:No bowel obstruction. Severe hepatic steatosis. Hepatomegaly. Anasarca. Small amount of ascites within the pelvis. Blood cultures negative to date Urine culture: Heather glabrata Received IV fluids Infectious Disease was consulted for antibiotic treatment, he has been receiving IV antibiotics since admission. -currently on Daptomycin Podiatry was also consulted: no foot MRI given current Rx Continued local wound care Acute metabolic encephalopathy Likely due to above infection/meds DD: Meningitis, encephalitis Suspected urinary tract infection--Less likely Head CT:No acute findings in the head/brain. Urine culture: unremarkable MRI Brain:No evidence of acute or subacute infarct. Reorient frequently to minimize delirium Repeat CT head showed no acute process Normal ammonia level Drug screen negative VBG showed no hypercarbia TSH elevated, normal free T4 Thiamine B1 level pending EEG noting "This is an abnormal routine EEG in a patient w altered mental state due to 1. Generalized background slowing suggestive of non specific encephalopathy, 2. Triphasic waves which are non specific but commonly seen in metabolic encephalopathies." Lamictal levels 6.6 Could not get lumbar puncture initially due to elevated INR/patient agitated Valproic acid held due to rising LFTs. Neurology aware Monitored ammonia levels, received a dose of lactulose on 08/20/2024 Appreciate neurology input. Poor Nutritional Status Was on tube feeds pt currently unable to swallow, altered, sometimes unarousable NPO, speech consult Per family would not want PEG tube palliative care consult as above Acute kidney injury likely ATN/toxic secondary to infection, vancomycin/AIN Cr: 4.4, downtrended CT ABd/pelvis noted "Mild nonspecific perinephric stranding. No hydronephrosis. Simple 2 cm left renal cyst. No follow-up of this simple cyst is necessary." Avoid nephrotoxic agents as able Monitor renal function, urinary output Bladder scan as needed Metformin, Jardiance, lisinopril on hold Avoid NSAIDs Monitor for volume status Received IV fluids Appreciate nephrology input Nephrology following closely Hypercalcemia --> now hypocalcemia (after hypercalcemia treatment) Hypernatremia Likely due to dehydration Low PTH, vitamin D levels PTH related peptide pending IV fluids as recommended by nephrology Monitor electrolytes closely Also on free water flushes through NG tube Started on calcitonin, Zometa Monitor calcium levels Transaminitis Likely due to sepsis, fatty liver CT ABD/pelvis noting "Hepatic steatosis. Hepatomegaly. Minimal free fluid around the liver and in the pelvis." Hepatitis panel negative Gall Bladder USD: Trace ascites. Normal sonographic appearance of the gallbladder. Large fatty liver. Elevated INR Monitor LFTs Hold Lipitor for now Valproate held due to worsening LFTs GI was consulted, appreciate recs Supratherapeutic INR Elevated INR--received vitamin K INR currently 1.4 Anemia Iron deficiency anemia Anemia of chronic disease No obvious signs of bleeding Vit B12, folate levels reviewed Monitor CBC Started on iron supplements Hypertension Hold lisinopril held atenolol currently on iv metoprolol 2.5 mg q6hrs DM II Hold home medications Adjust insulin per protocol to minimize hypoglycemic episodes Monitor blood glucose levels Hyperlipidemia Hold statin due to elevated LFTs History of seizures On Lamictal Monitor Remote history of lung cancer Treated with chemo as per records Diet: currently NPO CODE STATUS: DNR/DNI DVT Px: Heparin SQ Dispo: currently awaiting palliative recs Admission and Anticipated Discharge Date Admission Date: August 14, 2024 Subjective pt was seen laying in bed Family/granddaughters at bedside Review of Systems Review of Systems: All systems reviewed & are unremarkable except as noted in Subjective Physical Exam Physical Exam: General: appears comfortable HEENT: NC/AT Resp: no increased effort of breathing at the time of exam Results & Data Results & Data Vital Signs (Past 12 Hours) Vital Signs O2 Del Method 08/31/24 08:15 Room Air (6) Diabetic foot ulcer Diabetes mellitus type: type 2 Diabetic foot ulcer location: midfoot Laterality: right Non-pressure ulcer stage: with fat layer exposed Qualified Code(s): E11.621 - Type 2 diabetes mellitus with foot ulcer; L97.412 - Non- pressure chronic ulcer of right heel and midfoot with fat layer exposed
[2024-08-31] MEDS ORDERED: STAT IV Infusion **Titration per Protocol STA (13:49)
[2024-08-31] MEDS ORDERED: MoRPHine SULFATE 4 MG/ML 1 ML CARP\\VIAL IV PRN (13:51)
[2024-08-31] MEDS: MoRPHine SULF 100 MG/100 ML BAG IV SCH (14:54)
[2024-08-31] MEDS: MoRPHine BOLUS from BAG IV PRN (15:11)
--- NOTE | 2024-08-31 20:24 | Palliative Care Progress Note ---
Date of Service August 31, 2024 Assessment & Plan (1) Discussion about advance care planning held with family member: Plan: An urgent telemed family ACP Meeting was held from 745-830pm with Mrs Aleksandra Islas, her son Valdemar (pt karma), his Kait and their daughter Nan. A clinical update and events to date reviewed. Family meeting from yesterday reviewed. They asked about SDM and how it is done - reviewed [place] Act 169 in detail: Patient exhibits current lack of decisional capacity based on the inability to convey understanding of personal PMHx, current medical condition, treatment options nor the risks / benefits of those options, and lack of ability to make decisions based on such knowledge. Hospital does not have written documentation of patient wishes concerning his chosen proxy for medical decisions. Pt does require a proxy for medical decisions. Per [place] [id number], in absence of written documentation of patient wishes, pt's proxy for medical decisions would be his curretn spouse + his adult children, each get one vote and majority decision pre vails. They admit to discord in the family, as the two sides are not close. Aleksandra has been to Tien for 25 years, they have been together for o ishan 30 years. They do not have any biologic children. Clinical update provided. They all agree Tien would not want to live this way and if he was hearing that his life would at best be in a SNF without recovery to PTAS baseline, he would only want comfort care and no escalation. Aleksandra is being moved from [facility] to a local SNF on Tuesday closer to home and she states if Tien is stable for dc to SNF for comfort care, they want him to come to the same one she is going to and she agrees to have hospice added to his care. All questions were answered to their apparent satisfaction. They verbalized agreement with comfort plan of care for EOL. They agree he would desire a peaceful EOL with strong sx mgt. I have updated nursing, primary team, pt son Jj. (2) Dyspnea and respiratory abnormalities: (3) Weakness generalized: (4) Altered mental status: (5) Palliative care by specialist: Plan Continue [employer] Orders reviewed ACP as discussed above PLEASE CALL /KARMA AND SON JJ FOR ANY ACUTE CHANGES IN PT CONDITION/WHEN HE DIES Thank you for allowing us to participate in the ongoing care of this patient. Please page with any additional concerns. Beth Prescott DNP Director, Palliative Medicine Admission and Anticipated Discharge Date Admission Date: August 14, 2024 PG Care Time/CCT Total # of Minutes Spent Total Time Spent with Patient: Total time spent is greater than 50% in coordination of care (as documented) at patient's floor/unit and/or counseling patient: I spent 90 minutes overall addressing this case: 10 min in medical data review/discussion with referring provider(s) and/or preparation for the visit 5 min in direct interaction with the patient/exam video visit 45 min in Advance Care Planning/Goals of Care discussions as detailed above in note (must be >16min) 10 min in subsequent review and synthesis of assessment and plan 20 min communicating with other providers regarding the patient's case:nursing, primary team, night physician Advanced Care Planning 07519 Advanced Care Planning 30 Min 00690 Advanced Care Planning Additional 30 Min [place] [address] SUB INP/OBS CARE 3/50MIN (25 - SIGNIFICANT, SEPARATELY IDENTIFIABLE ) Patient Type Established Medical Decision Making High Complexity Diagnoses Discussion about advance care planning held with family member Z71.0 Dyspnea and respiratory abnormalities R06.00; R06.89 Weakness generalized R53.1 Altered mental status R41.82 Palliative care by specialist Z51.5 Additional Codes Advanced Care Planning - 83366 Advanced Care Planning 30 Min: 54256 Advanced Care Planning 30 Min ([id number]) Advanced Care Planning - 30987 Advanced Care Planning Additional 30 Min: 39530 Advanced Care Planning Additional 30 Min ([id number]) Comment [id number], [id number]
--- NOTE | 2024-08-31 23:08 | Death Pronouncement Note ---
Date of Service August 31, 2024 Pronouncement Note Admission Date August 14, 2024 Date and Time of Date of : 08/31/24 Time of : 23:35 Summary Discharge summary and certificate to be completed by Dr. Major. Additional Data Confirmation of : no pulse, no respirations, no heart sounds and pupils fixed and dilated Attending physician: Otilia Major MD
--- NOTE | 2024-09-01 09:37 | Discharge Summary ---
Discharge Summary Date of Service September 01, 2024 Principal Dx & Hospital Course #1 = Principal Diagnosis (1) Cardiac arrest: (2) Encephalopathy chronic: (3) Cellulitis of left lower extremity: (4) JUANA (acute kidney injury): (5) Cellulitis of right lower extremity: (6) Diabetic foot ulcer: (7) Shock circulatory: (8) Hypercalcemia: (9) Encephalopathy: (10) Palliative care by specialist: Plan 63-yo M w/ type 2 diabetes, diabetic ulcer of right midfoot, dyslipidemia, hypophosphatemia, hypertension, history of C. difficile colitis, oral thrush, cellulitis of right leg, abscess of right foot, absent seizures, history of lung cancer, was sent in by [facility] rehab because of confusion and fevers. Pt with extended hospitalization course initially being treated for sepsis in the setting of lower extremity cellulitis and a diabetic foot ulcer and acute metabolic encephalopathy. He also had a severe JUANA on admission with Cr of 4.54 on admission for which Nephrology was consulted. They also managed his hypernatremia and hypocalcemia that subsequently developed as well. On 08/21/24, a code blue was called after pt became bradycardic and tachypneic. He required CPR and subsequent intubation and was transferred to the ICU. He was extubated on 08/27/24 with the Avionics Systems Technician noting that his prognosis was poor. In particular it was noted "...At this point time I would favor discontinuation of sedation and liberation from mechanical ventilator. If the patient is unable to maintain respirations or protect airway, consideration for transition to comfort care measures might be appropriate. This will be discussed with the family in detail. Palliative care consultation may be appropriate as well..." After discussion with the family on 08/29/24, a palliative care consult was placed for further recommendations. Family meeting occurred on 08/30/24. Pt was transitioned to Comfort Measures Only on 08/30/24. Started on morphine drip on 08/31/24. Per Palliative Care at that time, Magnolia Prescott DNP: "...A 60 min face to face ACP was held with pt family: his mom, sons x2, dtr in law x1 and his sister We discussed all the clinical events to date and his PMH We spoke about current condition, concerns and ongoing issues We spoke about his prognosis We discussed PEG: discussed risks of PEG vs comfort feeds. Advised multiple organizations, including the [place] [employer] and the [place] [employer], have released statements endorsing the following approach to nutritional support in advanced dementia: Dont recommend percutaneous feeding tubes in patients with advanced dementia; instead, offer oral assisted feeding. he would not want this. He was not a fan of doctoring per family. He was very independent. We spoke about best case/worse case scenarios. 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 His level of impairment now suffers he will need ongoing care in a SNF. They all agree he would not want to live like that, did not want to be in a dependent manner and "just existing." After further discussion, family all agreed this was not a way that Tien would want to live. his sister and his sons together agreed he would never find QOL in this level of existence of any [facility] SNF. Tien;s has dementia and resides at [facility]. She is not able to make decisions for him Sons are SDM Jj is first SDM per family choice. 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 No PEG desired. Family need a [facility] that is where the most of them live. Original POLST is with son Jj. Copies given to the other son and dtr in law. Paper copy in Chart and another copy sent to HIM for scanning into [employer]..." Later with pt's further decline on 08/31/24, Palliative Care noted the following per Magnolia Prescott DNP: "...An urgent telemed family ACP Meeting was held from 745-830pm with Mrs Aleksandra Islas, her son Valdemar (pt clemente), his Kait and their daughter Nan. A clinical update and events to date reviewed. Family meeting from yesterday reviewed. They asked about SDM and how it is done - reviewed [place] Act 169 in detail: Patient exhibits current lack of decisional capacity based on the inability to convey understanding of personal PMHx, current medical condition, treatment options nor the risks / benefits of those options, and lack of ability to make decisions based on such knowledge. Hospital does not have written documentation of patient wishes concerning his chosen proxy for medical decisions. Pt does require a proxy for medical decisions. Per [place] [id number], in absence of written documentation of patient wishes, pt's proxy for medical decisions would be his curretn spouse + his adult children, each get one vote and majority decision prevails. They admit to discord in the family, as the two sides are not close. Aleksandra has been to Tien for 25 years, they have been together for o ishan 30 years. They do not have any biologic children. Clinical update provided. They all agree Tien would not want to live this way and if he was hearing that his life would at best be in a SNF without recovery to PTAS baseline, he would only want comfort care and no escalation. Aleksandra is being moved from [facility] to a local SNF on Tuesday closer to home and she states if Tien is stable for dc to SNF for comfort care, they want him to come to the same one she is going to and she agrees to have hospice added to his care. All questions were answered to their apparent satisfaction. They verbalized agreement with comfort plan of care for EOL. They agree he would desire a peaceful EOL with strong sx mgt..." Pt subsequently passed on 08/31/24 at 23:35. He was previously treated for the following: Sepsis Bilateral lower extremity cellulitis Right foot diabetic ulcer Recently at [facility] was placed on IV Vanco for 6 weeks until September 17 to treat his osteomyelitis though MRI was negative and abscess was I&D by podiatry at [facility] Right Foot X ray: No definite radiographic evidence of osteomyelitis as described. Venous Doppler:No evidence of deep venous thrombus within the bilateral lower extremities. Arterial Doppler:Negative right lower extremity arterial evaluation. No occlusion or significant hemodynamic stenosis with multiphasic waveforms throughout. CT ABD:No bowel obstruction. Severe hepatic steatosis. Hepatomegaly. Anasarca. Small amount of ascites within the pelvis. Blood cultures negative to date Urine culture: Heather glabrata Received IV fluids Infectious Disease was consulted for antibiotic treatment, he has been receiving broad spectrum IV antibiotics since admission. Podiatry was also consulted Continued local wound care as well Cardiac Arrest Circulatory Shock On 08/21/24, a code blue was called after pt became bradycardic and tachypneic. He required CPR and subsequent intubation and was transferred to the ICU. He was extubated on 08/27/24 with the Avionics Systems Technician noting that his prognosis was poor. In particular it was noted "...At this point time I would favor discontinuation of sedation and liberation from mechanical ventilator. If the patient is unable to maintain respirations or protect airway, consideration for transition to comfort care measures might be appropriate. This will be discussed with the family in detail. Palliative care consultation may be appropriate as well..." Pt was able to maintain his airway with significant difficulty and little progression. Palliative care was consulted and he was transitioned to comfort measures on 08/30/24. He subsequently on 08/31/24. Acute metabolic encephalopathy Likely due to above infection/meds DD: Meningitis, encephalitis Suspected urinary tract infection--Less likely Head CT:No acute findings in the head/brain. Urine culture: unremarkable MRI Brain:No evidence of acute or subacute infarct. Reorient frequently to minimize delirium Repeat CT head showed no acute process Normal ammonia level Drug screen negative VBG showed no hypercarbia TSH elevated, normal free T4 Thiamine B1 level pending EEG noting "This is an abnormal routine EEG in a patient w altered mental state due to 1. Generalized background slowing suggestive of non specific encephalopathy, 2. Triphasic waves which are non specific but commonly seen in metabolic encephalopathies." Lamictal levels 6.6 Could not get lumbar puncture initially due to elevated INR/patient agitated Valproic acid held due to rising LFTs. Neurology aware Monitored ammonia levels, received a dose of lactulose on 08/20/2024 Neurology was consulted Poor Nutritional Status Was on tube feeds at one point pt currently unable to swallow, altered, sometimes unarousable NPO, speech consult Per family would not want PEG tube palliative care consult as above Acute kidney injury likely ATN/toxic secondary to infection, vancomycin/AIN Cr: 4.4, downtrended CT ABd/pelvis noted "Mild nonspecific perinephric stranding. No hydronephrosis. Simple 2 cm left renal cyst. No follow-up of this simple cyst is necessary." Avoid nephrotoxic agents as able Monitor renal function, urinary output Bladder scan as needed Metformin, Jardiance, lisinopril on hold Avoid NSAIDs Monitored for volume status Received IV fluids Appreciate nephrology input Nephrology followed closely Hypercalcemia --> now hypocalcemia (after hypercalcemia treatment) Hypernatremia Likely due to dehydration Low PTH, vitamin D levels PTH related peptide IV fluids as recommended by nephrology Monitor electrolytes closely Also on free water flushes through NG tube Started on calcitonin, Zometa Monitored calcium levels Transaminitis Likely due to sepsis, fatty liver CT ABD/pelvis noting "Hepatic steatosis. Hepatomegaly. Minimal free fluid around the liver and in the pelvis." Hepatitis panel negative Gall Bladder USD: Trace ascites. Normal sonographic appearance of the gallbladder. Large fatty liver. Elevated INR Monitored LFTs Held Lipitor Valproate held due to worsening LFTs GI was consulted, appreciate recs Supratherapeutic INR Elevated INR--received vitamin K INR currently 1.4 Anemia Iron deficiency anemia Anemia of chronic disease No obvious signs of bleeding Vit B12, folate levels reviewed Monitored CBC Started on iron supplements Hypertension Held lisinopril held atenolol and was on iv metoprolol 2.5 mg q6hrs DM II Held home medications Adjust insulin per protocol to minimize hypoglycemic episodes Monitor blood glucose levels Hyperlipidemia Held statin due to elevated LFTs History of seizures On Lamictal Monitor Remote history of lung cancer Treated with chemo as per records Notes For Next Care Provider Pt as above after transition to comfort measures only after episode of cardiac arrest Medication Changes From Visit None, pt Admission HPI Per Admitting Provider 63-year-old male with past medical history significant for type 2 diabetes, diabetic ulcer of right midfoot, dyslipidemia, hypophosphatemia, hypertension, history of C. difficile colitis, oral thrush, cellulitis of right leg, abscess of right foot, absent seizures, history of lung cancer, was sent in by [facility] rehab because of confusion and fevers. Patient was in [facility] from 08/02/2024 to 08/11/2024. He was admitted to the [facility] for right foot swelling and rednesss and fevers. And right foot x-ray showed healed fracture through the midshaft of second metatarsal bone with calcified bridging callus. Pes planus. He was admitted for right foot infection. MRI of the foot was negative for osteomyelitis and showed cellulitis and possible abscess. Status post I&D by podiatry at bedside on August 03 with a deep purulence obtained and sent for culture. Status post I&D with podiatry for sepsis on August 06 and probe to bone very favorable and no clear abscess as suggested by CT scan. During hospital stay he was also completed Tamiflu for influenza. ID suggested Ancef until September 17 and to treat as osteomyelitis for MSSA on wound cultures with 6 weeks of IV antibiotics. On August 07 patient had rash thought to be from Ancef. Rash was worsening after second dose of Ancef and patient was having fevers that thought to be lined up from Ancef doses and was thought possible drug fever. And ID recommended IV Vanco via PICC line. Vancomycin dosing goal AUC 400-600 Mg/liter/hour. And patient was discharged to [facility] on 08/11/2024. At [facility] patient was still having fevers and shortness of breath and erythema around his wound ,does not appear to be receding thought to be spreading. [facility] made ID aware. As per the med rec from the [facility] seems patient had Rocephin. And was sent to our ER today because of fever and altered mental status. Patient can tell his name. Knows that he is in the hospital. Could tell his date of . But could not tell current dates. Denies any cough. Denies headache. Denies chest pain. Denies shortness of breath. Denies belly pain. Status post Sarmiento in the ER. Patient seems poor historian at this time. No sacral ulcer seen. Past medical history. As mentioned above. Past surgical history. Left total knee arthroplasty. Left carpal tunnel surgery. Flexible sigmoidoscopy. Cervical spine fusion surgery. Right toe partial amputation. Tonsillectomy. Repair of inguinal hernia. Social history. No smoking. Alcohol rarely. No drug use. Family history. Mother had arthritis. Diabetes. High cholesterol. Cardiac stent. Father had kidney cancer. High cholesterol. Brother has hypertension. Uncle had stomach cancer. Paternal grandfather had bone cancer. Admission Exam Per Admitting Provider General- Confused Head- atraumatic Eyes- PERRL. ENT- oropharynx dry Neck- supple, no JVD. Lungs- clear to auscultation no wheezing or crackles. Heart- regular rate and rhythm; no murmur, no gallop. Abdomen- normal bowel sounds, soft, nontender, no distension Extremities- b/l lower extremity erythema seen from foot to garcia region more on left side. Open callus seen on plantar aspect of right foot Neuro- alert, oriented x 2; Confused.PERRL, no facial palsy; no dysarthria; obeys simple commands Discharge Exam See note completed by Dr Gonzalez Updated Medication List Medication Instructions Recorded Confirmed Type Lactobacillus acidophilus 10 10,000 mmu cells PO DAILY 08/14/24 08/14/24 History billion cell capsule (Probiotic) aspirin 81 mg tablet,delayed 81 mg PO DAILY 08/14/24 08/14/24 History release atenolol 100 mg tablet 100 mg PO DAILY 08/14/24 08/14/24 History atorvastatin 20 mg tablet 20 mg PO DAILY 08/14/24 08/14/24 History bisacodyl 10 mg rectal suppository 10 mg WV DAILY PRN Constipation 08/14/24 08/14/24 History (Dulcolax (bisacodyl)) ceftriaxone 1 gram intravenous 1 g IV DAILY 08/14/24 08/14/24 History solution cyanocobalamin (vitamin B-12) 500 500 mcg PO DAILY 08/14/24 08/14/24 History mcg tablet empagliflozin 25 mg tablet 25 mg PO DAILY 08/14/24 08/14/24 History gabapentin 300 mg capsule 600 mg PO HS 08/14/24 08/14/24 History hydroxyzine HCl 10 mg tablet 10 mg PO HS PRN Anxiety 08/14/24 08/14/24 History lamotrigine 100 mg tablet 100 mg PO BID 08/14/24 08/14/24 History (Lamictal) lisinopril 20 mg tablet 20 mg PO DAILY 08/14/24 08/14/24 History metformin 500 mg tablet 500 mg PO BID 08/14/24 08/14/24 History multivitamin with minerals 1 tab PO DAILY 08/14/24 08/14/24 History ondansetron 4 mg disintegrating 4 mg PO Q8H PRN Nausea And Vomiting 08/14/24 08/14/24 History tablet oxycodone 5 mg tablet 5 mg PO Q6H PRN Severe Pain (Scale 08/14/24 08/14/24 History Score 7-10) vancomycin 1,000 mg intravenous 1 g IV UD 08/14/24 08/14/24 History injection Hospital Stay Data Consultations 08/14/24 20:25 ED Decision to Admit Stat 08/15/24 08:00 Consult Infectious Diseases Routine Consult Nephrology Routine Consult Podiatry Routine 08/16/24 15:38 Consult Neurology Routine 08/19/24 09:12 Consult Gastroenterology Routine 08/21/24 17:50 Consult Avionics Systems Technician Routine 08/21/24 20:36 Consult Cardiology Stat 08/29/24 08:05 Consult Palliative Care Routine Diagnostic Imagining Performed 08/14/24 22:17 CT Abd and Pelvis [CT abd pelvis wo con] Urgent CT head/brain wo con Urgent 08/15/24 US venous doppler LE BI Routine 08/15/24 16:24 US arterial duplex LE RT Routine 08/16/24 10:23 MRI Brain [MR brain wo con] Urgent 08/17/24 13:23 CT head/brain wo con Urgent 08/17/24 13:57 CT Abd and Pelvis [CT abd pelvis wo con] Urgent 08/19/24 09:14 US gallbladder Routine 08/19/24 22:11 CT head/brain wo con Stat 08/21/24 18:08 US point of care ultrasound Urgent 08/21/24 22:35 CT chest diagnostic wo con Stat CT head/brain wo con Stat 08/22/24 08:45 sono, invasive monitoring [US point of care ultrasound] Urgent 08/24/24 16:04 US liver Routine 08/25/24 12:34 CT head/brain wo con Urgent 08/26/24 09:36 MRI Brain [MR brain wo con] Urgent Chest X-Ray 08/14/24 18:34 Chest radiograph, one view History: Chest pain Comparison: None Findings: Single AP view of the chest performed. No focal consolidation or pleural effusion. No pneumothorax. Right upper extremity PICC tip is at the superior atrial caval junction. Elevated right hemidiaphragm. The cardiomediastinal silhouette is within normal limits. Normal pulmonary vascularity. No evidence for lymphadenopathy. No visualized bony or soft tissue abnormality. Impression: Right upper extremity PICC as above. Otherwise no acute process. Electronically signed by Quintin Kapadia 08-14-2024 7:07 PM Abdomen/Pelvis CT 08/14/24 22:17 Exam(s): CT ABDOMEN + PELVIS Without Contrast EXAM: CT Abdomen and Pelvis Without Intravenous Contrast CLINICAL HISTORY: Reason for exam: juana. TECHNIQUE: Axial computed tomography images of the abdomen and pelvis without intravenous contrast. CTDI is 37.61 mGy and DLP is 1457.61 mGy-cm. Automated exposure control was utilized for the study. A dose lowering technique was utilized adhering to the principles of ALARA. COMPARISON: No relevant prior studies available. FINDINGS: Lung bases: Right lower lobe atelectasis or consolidation. Mild left basilar atelectasis. Trace right pleural effusion. Mediastinum: Small hiatal hernia. ABDOMEN: Liver: Marked hypoattenuation of the liver. Hepatomegaly, 25 cm craniocaudal. Gallbladder and bile ducts: Distended gallbladder. No obvious wall thickening or calcified stones. No ductal dilation. Pancreas: Unremarkable. No ductal dilation. Spleen: Unremarkable. No splenomegaly. Adrenals: Unremarkable. No mass. Kidneys and ureters: Mild nonspecific perinephric stranding. No hydronephrosis. Simple 2 cm left renal cyst. No follow-up of this simple cyst is necessary. Stomach and bowel: Fluid level in the rectum. Mild sigmoid diverticulosis. No obstruction. No mucosal thickening. PELVIS: Appendix: No findings to suggest acute appendicitis. Bladder: Sarmiento catheter in decompressed urinary bladder. No stones. Reproductive: Unremarkable as visualized. ABDOMEN and PELVIS: Intraperitoneal space: Minimal free fluid around the liver and in the pelvis. No free air. Bones/joints: Degenerative changes of the spine. No acute fracture. No dislocation. Soft tissues: Small bilateral inguinal hernias containing fat. Mild body wall edema, mostly in the right flank region. Vasculature: Unremarkable. No abdominal aortic aneurysm. Lymph nodes: Unremarkable. No enlarged lymph nodes. IMPRESSION: 1. Right lower lobe atelectasis or consolidation. Mild left basilar atelectasis. Trace right pleural effusion. 2. Hepatic steatosis. Hepatomegaly. 3. Minimal free fluid around the liver and in the pelvis. 4. Fluid level in the rectum. May reflect diarrhea. 5. Mild sigmoid diverticulosis. Electronically signed by: Debbie Benavides M.D. 08/15/24 01:[address] 08/14/24 22:17 Exam(s): CT HEAD Without Contrast EXAM: CT Head Without Intravenous Contrast CLINICAL HISTORY: Reason for exam: AMS. TECHNIQUE: Axial computed tomography images of the head/brain without intravenous contrast. CTDI is 53.87 mGy and DLP is 938.3 mGy-cm. Automated exposure control was utilized for the study. A dose lowering technique was utilized adhering to the principles of ALARA. COMPARISON: No relevant prior studies available. FINDINGS: Artifacts: Some motion artifact. Brain: Mild volume loss with prominent ventricles and sulci. No hemorrhage. No significant white matter disease. Ventricles: See above. Bones/joints: Unremarkable. No acute fracture. Soft tissues: Unremarkable. Sinuses: Unremarkable as visualized. No acute sinusitis. Mastoid air cells: Unremarkable as visualized. No mastoid effusion. IMPRESSION: No acute findings in the head/brain. Electronically signed by: Debbie Benavides M.D. 08/15/24 00:23 AM Venous Doppler Study 08/15/24 00:00 BILATERAL LOWER EXTREMITY VENOUS DOPPLER CLINICAL HISTORY: b/l lower ext erythema. dvt? COMPARISON STUDY: No previous studies for comparison. TECHNIQUE: Sonography of the deep venous system of the bilateral lower extremities was performed. Compression and augmentation were evaluated. FINDINGS: The bilateral common femoral, superficial femoral and popliteal veins were compressible. Augmentation was normal. Flow was shown within the deep calf vessels. IMPRESSION: No evidence of deep venous thrombus within the bilateral lower extremities. ACT 112: Negative or not required by law. Electronically signed by: Dewey Jorge M.D. 08/15/2024 9:04 AM Foot X-Ray 08/15/24 10:07 XR foot RT min 3V routine CLINICAL HISTORY: Osteomyelitis right calcaneus COMPARISON: None FINDINGS: 3 views of the right foot demonstrate a prior great toe ray amputation at the level of the distal first metatarsal. There is exuberant callus surrounding a second metatarsal midshaft fracture. The lateral view suggests a plantar soft tissue ulcer. There is also some soft tissue prominence over the heel. The calcaneus is intact with no radiographic evidence of calcaneal osteomyelitis. IMPRESSION: No definite radiographic evidence of osteomyelitis as described. ACT 112: Negative or not required by law. Electronically signed by: Deanna Rodríguez M.D. 08/15/2024 10:49 AM Duplex Scan Lower Extremity Artery 08/15/24 16:24 Exam(s): US ARTERIAL RIGHT LOWER EXTREMITY EXAM: US Duplex Right Lower Extremity Arteries CLINICAL HISTORY: Slow wound healing diabetic ulcer right foot. TECHNIQUE: Real-time duplex ultrasound scan of the right lower extremity arteries integrating B-mode two-dimensional vascular structure, Doppler spectral analysis and color flow Doppler imaging. COMPARISON: No relevant prior studies available. FINDINGS: Right common femoral artery: Multiphasic waveforms. No significantly elevated duplex velocities. The peak systolic velocity is 103 cm/s. Right superficial femoral artery: Multiphasic waveforms. No significantly elevated duplex velocities. The peak systolic velocities ranging between 123 cm/s proximally, 113 cm/s at the mid segment and 107 cm/s distally. Right popliteal artery: Multiphasic waveforms. No significantly elevated duplex velocities. The peak systolic velocities between 99 and 93 cm/s. Right calf/foot arteries: Right trifurcation: The right posterior tibial artery is patent with multiphasic waveforms and peak systolic velocities between 86, 102 and 110 cm/s. The peroneal artery was interrogated with biphasic to multiphasic waveforms and peak systolic velocities between 90 and 74 cm/s. The anterior tibial artery is patent with multiphasic waveforms and peak systolic velocities between 72 and 103 cm/s. The dorsalis pedis artery demonstrates multiphasic waveforms. Other arteries: Right profunda femoral artery: Biphasic waveforms. No significantly elevated duplex velocities. The peak systolic velocity is 112 cm/s. Soft tissues: Unremarkable. IMPRESSION: Negative right lower extremity arterial evaluation. No occlusion or significant hemodynamic stenosis with multiphasic waveforms throughout. Electronically signed by: Donald Head MD 08/15/24 21:45 PM Brain MRI 08/16/24 10:21 Exam(s): MRI HEAD Without Contrast EXAM: MR Head Without Intravenous Contrast CLINICAL HISTORY: Altered mental status. TECHNIQUE: Magnetic resonance images of the head/brain without intravenous contrast in multiple planes. COMPARISON: CT head without contrast performed 08/14/2024 FINDINGS: Limitations: There is motion artifact, which degrades image quality on multiple sequences. Brain: Diffusion-weighted imaging is negative for acute or subacute infarct. No definite intracranial hemorrhage. No significant mass- effect. No cortical infarct. Ventricles: Unremarkable. No ventriculomegaly. Bones/joints: Unremarkable. No acute fracture. Sinuses: Unremarkable as visualized. No acute sinusitis. Mastoid air cells: Unremarkable as visualized. No mastoid effusion. Orbits: Unremarkable as visualized. IMPRESSION: No evidence of acute or subacute infarct. Electronically signed by: Donald Head MD 08/16/24 23:[address] 08/17/24 13:23 CT head/brain wo con CLINICAL HISTORY: Altered mental status. TECHNIQUE: Multiple axial CT images of the head were obtained without contrast. Sagittal and coronal reconstructions were done. A dose lowering technique was utilized adhering to the principles of ALARA. CT DOSE: 2199.31 mGy.cm COMPARISON: 08/14/2024 FINDINGS: Some motion degradation is present. The been no significant interval change since the prior examination. There is no intra-axial or extra-axial fluid collection, hemorrhage, or mass. There is no midline shift. The ventricles and sulci are age-appropriate. The bone windows are grossly negative. IMPRESSION: Stable exam; no acute intracranial process identified. ACT 112: Negative or not required by law. The above report was generated using voice recognition software. It may contain grammatical, syntax or spelling errors. Electronically signed by: Deanna Rodríguez M.D. 08/17/2024 3:22 PM Chest X-Ray 08/17/24 13:50 XR chest 1V portable CLINICAL HISTORY: Hypoxia COMPARISON STUDY: 08/14/2024 FINDINGS: The study is compromised by respiratory motion. There is a right-sided PICC line with the tip not visible. There is continued elevation of the right hemidiaphragm with adjacent discoid atelectasis. The left lung is grossly clear. Mild cardiomegaly and pulmonary vascular congestion are persistent. IMPRESSION: Stable exam; no acute process identified. ACT 112: Negative or not required by law. Electronically signed by: Deanna Rodríguez M.D. 08/17/2024 3:10 PM Abdomen/Pelvis CT 08/17/24 13:57 CT OF THE ABDOMEN AND PELVIS WITHOUT CONTRAST CLINICAL HISTORY: Abdominal pain. COMPARISON STUDY: CT of the abdomen and pelvis August 14, 2024. TECHNIQUE: Axial images of the abdomen and pelvis were obtained without IV contrast. Images were reviewed in the axial, sagittal, and coronal planes. Automated exposure control was utilized for the study. A dose lowering technique was utilized adhering to the principles of ALARA. FINDINGS: Small right and trace left pleural effusions are present. Subpleural opacities favor atelectasis. This exam is compromised given motion artifact and lack of IV contrast. There is severe hepatic steatosis. Hepatomegaly is noted. There is no pneumatosis, free air or portal venous gas. Small amount of ascites within the pelvis is present. Unenhanced images of the spleen, adrenal glands, kidneys and pancreas are unremarkable with exception of a suspected left lower pole renal cyst. There is no evidence for a bowel obstruction. A Sarmiento balloon within the bladder is present. Body wall edema suggesting anasarca. No fluid collections are identified. There are no urinary calculi. There is no hydronephrosis. There is no lymphadenopathy. No peripancreatic or pericholecystic infiltration is present. IMPRESSION: 1. Exam compromised given lack of IV contrast and motion artifact. 2. No bowel obstruction. 3. Severe hepatic steatosis. Hepatomegaly. 3. Anasarca. Small right and trace left pleural effusions. Small amount of ascites within the pelvis. ACT 112: Negative or not required by law. Electronically signed by: Dewey Jorge M.D. 08/17/2024 3:37 PM KUB X-Ray 08/18/24 11:40 EXAM: Radiograph of the Abdomen 1 View INDICATION: Nasogastric tube placement. TECHNIQUE: Frontal supine view of the abdomen/pelvis. Image obtained at 11:36 AM. COMPARISON: No relevant prior studies available. FINDINGS: Limitations: None. Lower thorax: Right diaphragmatic elevation/eventration with adjacent compressive atelectasis. Large cardiac shadow. Gastrointestinal tract: No aerated intestinal loops seen in the upper abdomen. Organs: Visualized organ shadows appear grossly normal. Bones/joints: No fracture, erosion or dislocation. Soft tissues: No abnormality noted. No radiopaque foreign body noted. Tubes, lines and devices: Nasogastric tube terminates in the gastric body. IMPRESSION: Nasogastric tube terminates in the gastric body. ACT 112: Negative or not required by law. Electronically signed by Snehal Chappell 08-18-2024 11:59 AM Chest X-Ray 08/19/24 04:44 EXAM: XR chest 1V portable CLINICAL HISTORY: Tachypnea. TECHNIQUE: An X-ray image of the chest is obtained in AP projection. COMPARISON: XR chest, 08/17/2024. XR KUB/Abdomen 08/18/2024. FINDINGS: NG tube noted in situ. The tip is seen below the hemidiaphragm. Unchanged. Right PICC is noted. The tip is seen in the cavoatrial junction. Pulmonary Parenchyma: Slight interval regression of previously noted bilateral mild pleural effusion/thickening. Small right basilar linear opacities. This could be due to atelectasis. Elevation of right hemidiaphragm. Heart and Mediastinum: Increased cardiothoracic ratio. This could be projectional. Perihilar vascular congestion. No mediastinal widening or masses. No hilar or mediastinal lymphadenopathy. Bony Thorax: Bony thorax appears intact without fractures or deformities. Soft Tissues: Soft tissues overlying the chest wall are unremarkable. IMPRESSION: 1. NG tube noted in situ. Unchanged. 2. Right PICC noted in situ. Unchanged. 3. Slight interval regression of previously noted bilateral mild pleural effusion/thickening. 4. Small right basilar opacities. This could be due to atelectasis. The possibility of evolving infection or inflammatory process cannot be excluded. Need clinical correlation. Unchanged. 5. Elevation of right hemidiaphragm. Unchanged. Electronically signed by Rajani Jenkins 08-19-2024 06:25 AM Gallbladder Ultrasound 08/19/24 09:14 EXAM: US Abdomen Limited Gallbladder INDICATION: Trace ascites. TECHNIQUE: Real-time ultrasound of the gallbladder with image documentation. COMPARISON: No relevant prior studies available. FINDINGS: Liver: Enlarged to 24 cm long. Markedly echogenic. Gallbladder: No gallstones, wall thickening or surrounding fluid. Common bile duct: No significant abnormality noted. No stones. No dilation. Pancreas: Obscured by gas. Free fluid: Trace ascites noted. IMPRESSION: 1. Trace ascites. 2. Normal sonographic appearance of the gallbladder. 3. Large fatty liver. ACT 112: Negative or not required by law. Electronically signed by Snehal Chappell 08-19-2024 10:24 AM Chest X-Ray 08/19/24 21:03 Exam(s): XR CXR 1 VIEW EXAM: XR Chest, 1 View CLINICAL HISTORY: sob. TECHNIQUE: Frontal view of the chest. COMPARISON: 0508 hrs. FINDINGS: Lungs: Stable asymmetric elevation of the right hemidiaphragm. Improved lung expansion. Similar to slightly improved subsegmental changes involving the right perihilar and infrahilar region. The left lung is now well aerated. The pulmonary vasculature appears slightly less prominent/crowded. Pleural space: Unremarkable. No pneumothorax. No large pleural effusion. Heart: The cardiac silhouette remains prominent. Mediastinum: The mediastinal contours are thought to be stable, accounting for obliquity, less prominent. Bones/joints: Unremarkable. No acute fracture. Tubes, lines and devices: Nasogastric tube tip cannot be seen but is below the diaphragm. A right arm PICC is identified with tip in the superior right atrium, stable. IMPRESSION: Stable asymmetric elevation of the right hemidiaphragm. Improved lung expansion. Similar to slightly improved subsegmental changes involving the right perihilar and infrahilar region. The left lung is now well aerated. The pulmonary vasculature appears slightly less prominent/crowded. No pneumothorax. Electronically signed by: Donald Head MD 08/19/24 23:[address] 08/19/24 22:11 Exam(s): CT HEAD Without Contrast EXAM: CT Head Without Intravenous Contrast CLINICAL HISTORY: ams, coagulopathy. TECHNIQUE: Axial computed tomography images of the head/brain without intravenous contrast. CTDI is 95.63 mGy and DLP is 1574.9 mGy-cm. Automated exposure control was utilized for the study. A dose lowering technique was utilized adhering to the principles of ALARA. COMPARISON: CT head without contrast 08/14/2024; MRI to 2024 FINDINGS: Limitations: There is motion artifact, despite repeated imaging at times, which degrades image quality on multiple image slices. Brain: No definite intracranial hemorrhage; evaluation for subtle extra-axial pathology along the margins of the parenchyma is limited in regions of streak motion artifact. No significant mass effect identified. No significant white matter disease. Ventricles: No midline shift or significant effacement of the ventricles. Bones/joints: No definite skull fracture. Soft tissues: Unremarkable. Sinuses: Unremarkable as visualized. No acute sinusitis. Mastoid air cells: Unremarkable as visualized. No mastoid effusion. Tubes, lines and devices: A nasogastric tube is noted in the right nasopharynx. IMPRESSION: Accounting for limitations with motion artifact, no definite acute intracranial process identified. Electronically signed by: Donald Head MD 08/19/24 23:32 PM Chest X-Ray 08/20/24 03:20 EXAM: XR chest 1V portable CLINICAL HISTORY: cough, bile. TECHNIQUE: An X-ray image of the chest is obtained in AP projection. COMPARISON: 08/19/2024 FINDINGS: NG tube noted in situ. The tip is seen below the hemidiaphragm. Unchanged. Right PICC is noted. The tip is seen in the cavoatrial junction. Pulmonary Parenchyma: Slight stable appearance of bilateral mild pleural effusion/thickening. Small right basilar linear opacities. This could be due to atelectasis. Elevation of right hemidiaphragm. Heart and Mediastinum: Increased cardiothoracic ratio. This could be projectional. Perihilar vascular congestion. No mediastinal widening or masses. No hilar or mediastinal lymphadenopathy. Bony Thorax: Bony thorax appears intact without fractures or deformities. Soft Tissues: Soft tissues overlying the chest wall are unremarkable. IMPRESSION: 1. NG tube noted in situ. Unchanged. 2. Right PICC noted in situ. Unchanged. 3. Stable appearance of previously noted bilateral mild pleural effusion/thickening. 4. Small right basal opacities, unchanged, could be due to atelectasis. The possibility of evolving infection or inflammatory process cannot be excluded. Need clinical correlation. 5. Elevation of right hemidiaphragm. Unchanged. Electronically signed by Rajani Jenkins 08-20-2024 05:22 AM Chest X-Ray 08/20/24 21:08 Exam(s): XR CXR 1 VIEW EXAM: XR Chest, 1 View CLINICAL HISTORY: Reason for exam: sob. TECHNIQUE: Frontal view of the chest. COMPARISON: 08/20/2024 FINDINGS: Lungs: Volume loss in the right lung. No interstitial edema. Left lung is clear. Pleural space: No pleural effusion. No pneumothorax. Heart: Unremarkable. No cardiomegaly. Tubes, lines and devices: Esophagogastric tube terminates below the diaphragm. Right upper extremity PICC terminates within the right atrium. Upper abdomen: Elevated right hemidiaphragm. IMPRESSION: No significant interval change. Electronically signed by: Ken Goldstein MD 08/20/24 22:05 PM Chest X-Ray 08/21/24 07:39 EXAM: XR chest 1V portable CLINICAL HISTORY: check PICC line placement. TECHNIQUE: An X-ray image of the chest is obtained in AP projection. COMPARISON: Prior study dated 08/20/2024 FINDINGS: NG tube noted in situ. The tip is seen below the hemidiaphragm. Unchanged. Right PICC is noted. The tip is seen in the cavoatrial junction. Pulmonary Parenchyma: Small right basal linear opacities. This could be due to atelectasis. Elevation of right hemidiaphragm. Obscured both costophrenic angles Heart and Mediastinum: Increased cardiothoracic ratio. This could be projectional. Perihilar vascular congestion. No mediastinal widening or masses. No hilar or mediastinal lymphadenopathy. Bony Thorax: Bony thorax appears intact without fractures or deformities. Soft Tissues: Soft tissues overlying the chest wall are unremarkable. IMPRESSION: 1. NG tube noted in place. The tip is seen below the hemidiaphragm. Unchanged. 2. Right PICC is noted with tip is seen in the cavoatrial junction. (unchanged) 3. Small right basal linear opacities. This could be due to atelectasis. 4. Elevation of right hemidiaphragm (unchanged) 5. Perihilar vascular congestion. 6. No interval changes. Electronically signed by Rajani Jenkins 08-21-2024 08:59 AM Chest X-Ray 08/21/24 17:47 INDICATION: Intubation TECHNIQUE: Frontal radiograph of the chest. COMPARISON: Radiograph from earlier the same day FINDINGS/IMPRESSION: Right pleural effusion with atelectasis/airspace disease, slightly worsened from prior. No pneumothorax. Left lung is clear. No acute fracture. Endotracheal tube tip approximately 3.3 cm above the mauricio. Enteric tube extends below the diaphragm. Right-sided PICC line catheter tip in the superior vena cava. Electronically signed by Elvin Urias 08-21-2024 6:[address] 08/21/24 22:35 EXAM: CT chest diagnostic wo con CLINICAL HISTORY: Cardiac arrest, hypoxemia TECHNIQUE: Contiguous axial CT images of the chest were acquired without administration of intravenous contrast. Coronal and sagittal reconstructions were obtained. One of the following dose reduction techniques were utilized for this exam: Automated exposure control, adjustment of the mA and/or kV according to patient size, use of iterative reconstruction. COMPARISON: CR 08/21/2024 FINDINGS: Endotracheal tube is approximately 2.5 cm from mauricio. Nasogastric tube is appropriately placed. Lungs: Mild right sided pleural effusion with subpleural consolidation and collapse in right lower lobe. Minimal left sided pleural effusion. Few atelectatic bands in both lungs. Right hemidiaphragm is raised, possible eventration/palsy. Mediastinum: No mediastinal mass or abnormal lymphadenopathy. The heart size is within normal limits. Trachea and Main Bronchi: The trachea and main bronchi are patent without evidence of obstruction or abnormality. Chest Wall: The chest wall is unremarkable with no evidence of soft tissue or bony abnormalities. Bone: Degenerative changes in thoracic spine. Upper Abdomen: Hepatic steatosis noted. IMPRESSION: Endotracheal tube is approximately 2.5 cm from mauricio. Borderline low position. Nasogastric tube is appropriately placed. Mild right sided pleural effusion with subpleural consolidation and collapse in right lower lobe. Possibly related to cardiac arrest. Minimal left sided pleural effusion. Few atelectatic bands in both lungs. Right hemidiaphragm is raised, possible eventration/palsy. Electronically signed by Rajani Jenkins 08-22-2024 01:[address] 08/21/24 22:35 EXAM: CT head/brain wo con CLINICAL HISTORY: Cardiac arrest. Encephalopathy. TECHNIQUE: An axial non-contrast CT scan of the brain was performed from the skull base to the high parietal region. One of the following dose reduction techniques were utilized for this exam: Automated exposure control, adjustment of the mA and/or kV according to patient size, use of iterative reconstruction. COMPARISON: 08/19/2024 FINDINGS: There are tiny ill-defined [id number] areas noted in the subcortical and periventricular white matter bilaterally, suggestive of microvascular ischemic changes. The ventricular system, cortical sulci, and basal cisterns are prominent consistent with senile changes. The visualized brain parenchyma shows normal appearance. Santillan-white matter differentiation is maintained. No midline shifts or deformity. No intracerebral or extra axial hematoma. Normal CT appearance of the posterior fossa structures namely the cerebellar hemispheres, brainstem and cerebellar peduncles. The cerebello-pontine angles are clear. The osseous structures in the skull base are unremarkable. No definite calvarium fractures. The scanned paranasal sinuses are clear. Bilateral mastoid air cells appear unremarkable. Postsurgical atlas vertebra fixation. IMPRESSION: 1. No definite acute abnormality detected on plain CT head. Recommended MRI if clinically warranted 2. Chronic microvascular ischemic changes and senile cortical atrophy 3. No significant interval changes since previous study. Electronically signed by Rajani Jenkins 08-22-2024 01:36 AM Chest X-Ray 08/22/24 09:25 XR chest 1V portable CLINICAL HISTORY: s/p RIGHT IJ CVL COMPARISON STUDY: 08/21/2024 FINDINGS: Endotracheal tube tip is stable at the thoracic inlet. Nasogastric tube tip is off the film inferiorly. Interval right central catheter tip is at the cavoatrial junction. Stable right PICC. No pneumothorax. Heart size and pulmonary vasculature are normal. There is mild stranding at the right lung base, improved. IMPRESSION: 1. No pneumothorax. 2. Mild stranding right lung base, improved. ACT 112: Negative or not required by law. Electronically signed by: Morgan Medina M.D. 08/22/2024 9:46 AM Chest X-Ray 08/24/24 08:47 XR chest 1V portable CLINICAL HISTORY: f/u COMPARISON STUDY: 08/22/2024 through 08/14/2024 FINDINGS: Endotracheal tube tip is at the thoracic inlet. Nasogastric tube tip is off the field of view inferiorly. Right central catheter is stable. There is stable cardiomegaly without pulmonary vascular congestion. There is stable to increased prominent elevation of the right hemidiaphragm with grossly stable consolidation at the right lower lung. No pneumothorax. IMPRESSION: Stable to mildly increased prominent elevation of the right hemidiaphragm with grossly stable consolidation at the right lower lung. ACT 112: Negative or not required by law. Electronically signed by: Morgan Medina M.D. 08/24/2024 9:35 AM Liver Ultrasound 08/24/24 16:04 EXAM: US liver CLINICAL HISTORY: elevated lfts TECHNIQUE: An ultrasound examination of the limited abdomen was performed. Difficult portable examination as the patient was unable to move and intubated. COMPARISON: Ultrasound dated 08/19/[address] dated 08/18/2024. FINDINGS: Difficult portable examination as the patient was unable to move and intubated. The pancreas is seen prominent with a hypoechoic heterogeneous echo texture. The liver is enlarged in size, measuring 24.2 cm with increased parenchymal echogenicity. No definite focal lesion seen within the liver. The gallbladder is seen distended with normal wall thickness measuring 0.23 cm. Mild pericholecystic edema. No definite sludge or stones seen within the gallbladder. The common bile duct is not dilated, measuring 0.29-0.41 cm. The right kidney is seen measuring 13.8 cm with no definite hydronephrosis or calculi seen within. Mild perihepatic ascites is noted. IMPRESSION: 1. Prominent pancreas with heterogeneous hyperechoic echotexture. This could be due to inflammatory process. Need clinical correlation. 2. Mild pericholecystic edema. This could be due to reactionary due to ascites or adjacent inflammatory process. New finding. 3. Hepatic steatosis. Unchange. 4. Mild perihepatic ascites. Unchanged. 5. Otherwise, no significant interval changes. Electronically signed by Rajani Jenkins 08-25-2024 03:[address] 08/25/24 12:34 CT OF THE HEAD WITHOUT CONTRAST CLINICAL HISTORY: anoxic injury ? COMPARISON STUDY: Head CT August 22, 2024. CT DOSE: 1250.21 mGy.cm TECHNIQUE: Helical axial images of the head were obtained without IV contrast. Automated exposure control was utilized for the study. A dose lowering technique was utilized adhering to the principles of ALARA. FINDINGS: This exam is moderately compromised by motion artifact. No acute intracranial hemorrhage, midline shift or mass effect is present. Ventricular system is normal. Basal cisterns are patent. There are no extra-axial collections. Santillan-white differentiation is grossly maintained. There are no findings to suggest acute dural sinus thrombosis or acute territorial infarct. IMPRESSION: 1. No acute intracranial findings. 2. Exam moderately compromised by motion artifact. However, no CT evidence for anoxic injury. ACT 112: Negative or not required by law. Electronically signed by: Dewey Jorge M.D. 08/25/2024 1:30 PM Chest X-Ray 08/26/24 06:00 EXAM: XR chest 1V portable CLINICAL HISTORY: Eval tubes/lines/lung [place] while intubated TECHNIQUE: An X-ray image of the chest is obtained in AP projection. COMPARISON: 08/24/2024 FINDINGS: ETT with its tip 3.0 cm above the mauricio. NG tube noted in situ. The tip is seen below the hemidiaphragm. Right CVL is noted. The tip is seen in the cavoatrial junction. Pulmonary Parenchyma: Right hemidiaphragm is raised. Right CP angle is obliterated may favor pleural reaction. Numerous chest tubes are appreciated. Increased vascular markings are noted in bilateral perihilar regions may favor vascular congestion. Heart and Mediastinum: Cardiac size is enlarged. No mediastinal widening or masses. No hilar or mediastinal lymphadenopathy. Bony Thorax: Bony thorax appears intact without fractures or deformities. Soft Tissues: Soft tissues overlying the chest wall are unremarkable. IMPRESSION: 1. ETT with its tip 3.0 cm above the mauricio. 2. NG tube noted in situ. The tip is seen below the hemidiaphragm. 3. Right CVL is noted. The tip is seen in the cavoatrial junction. 4. Right hemidiaphragm is elevated. 5. Right CP angle is obliterated may favor pleural reaction. 6. No significant interval change. Electronically signed by Rajani Jenkins 08-26-2024 08:18 AM Brain MRI 08/26/24 09:36 Technique: Multiple T1 and T2-weighted magnetic resonance images were obtained of the brain without gadolinium contrast Comparison is made with a head CT dated 08/21/2024 Findings: There is no sign of acute or old infarction with normal-appearing diffusion weighted images. No definite focus of demyelination is seen. There is mild diffuse cerebral atrophy No definite mass lesion is seen on this noncontrast study. There is no intracranial hemorrhage or other fluid collection. No midline shift or other form of herniation is seen. There is no hydrocephalus. Normal flow-voids are seen within the arteries of the [id number]. The orbits and paranasal sinuses appear normal. There is opacification of the mastoid air cells bilaterally Impression: 1. No sign of infarction or mass lesion 2. Bilateral mastoid air cell opacification, concerning for inflammatory mastoiditis Electronically signed by Rajan Major 08-26-2024 2:14 PM Chest X-Ray 08/27/24 06:00 EXAM: XR chest 1V portable CLINICAL HISTORY: eval tubes/lines/lung [place] while intubated TECHNIQUE: An X-ray image of the chest is obtained in 1 AP projection. COMPARISON: 08/26/2024 CR FINDINGS: ETT with its tip 3.4 cm above the mauricio. NG tube noted in situ. The tip is seen below the hemidiaphragm. Right CVL is noted. The tip is seen in the cavoatrial junction. Pulmonary Parenchyma: Right hemidiaphragm is raised with Right costophrenic angle is obliterated, may favor pleural effusion with underlying collapse. Numerous chest tubes are appreciated. Increased vascular markings are noted in bilateral perihilar regions, which may favor vascular congestion. Heart and Mediastinum: Cardiac size is enlarged. No mediastinal widening or masses. No hilar or mediastinal lymphadenopathy. Bony Thorax: Bony thorax appears intact without fractures or deformities. Soft Tissues: Soft tissues overlying the chest wall are unremarkable. IMPRESSION: 1. ETT with its tip 3.4 cm above the mauricio. 2. NG tube noted in situ. The tip is seen below the hemidiaphragm. 3. Right CVL is noted. The tip is seen in the cavoatrial junction. 4. Findings suggesting pleural effusion with underlying collapse. 5. No significant interval change. Electronically signed by Rajani Jenkins 08-27-2024 07:43 AM Total Time Total Time Spent Total Time Spent (In Minutes): 60
== END 2024-08-31 23:59 | disposition expired | DRG 870 ==
LOC: ED 17:53 → 2S 21:39 → SUATTDRO 21:39 → 2S 22:25 → 1E 08-21 17:57 → 4W 08-30 06:21 → 3E 08-30 18:39